=== PATIENT | male | born 1970 | race Caucasian/White ===

== ENCOUNTER 2016-03-09 14:01 | Emergency (ER) | payer OTHER ==
[~2016-03-09 14:01] MED LIST: /LAMO10TA PO; /QUET25TA OR; ACCU1TAB PO; AMAN10CA PO; ATEN25TA PO; BENZ5TA PO; CELE20TA PO; COGENTIN PO; COLA100C PO; CONGENTIN PO; DEBR6.5S4 AU; DESYREL PO; DOCQ100C PO; EPI PEN SQ; EXCETAB80 PO; FLOM5CAP PO; FLON0.05; FLON0.054; FLUO20CA9 PO; FLUTISP; IBUP600T26 PO; IBUP60TA PO; INDE1CAP5 PO; INDE80CA PO; INDERAL PO; LAC-12LO3 TOP; LAMI200T3 PO; LAMI25TA PO; LAMO10TA PO; LEVO100T4 PO; LEVO88TA3 PO; LITH150C OR; LITH300C PO; LITH300T PO; LITH45TASA PO; LITH600C OR; Lithium PO; MIRA3350 PO; NASONEX; NIZORAL TOP; OLYSIO PO; PERI0.126 MT; PROP1TAB29 PO; PROP40TA PO; PROS5TAB PO; RISP1TAB3 PO; RISP1TAB41 PO; ROBA500T PO; ROPI1TAB PO; SENO8.6T5 OR; SERO1TAB PO; SERO400T PO; SERO400T3 PO; SOVALDI PO; TETR25TA PO; TRAZ100T4 PO; TRAZ300T2 PO; TRAZO50TA PO; TRIL600T OR; TRIL600T PO; TYLE325T5 PO; ULTR50TA PO; VITA100037 PO; VITA10005 PO; VITA200038 PO; VITA20008 PO; inderal PO; pain medication PO
--- NOTE | 2016-03-09 15:45 | EDDOCDS ---
Physician Documentation [facility] Name: Tate Bajwa Age: 45 yrs Sex: Male : 1970 Arrival Date: 03/09/2016 Time: 14:01 Bed I7 Private MD: Drew Aguilera E. Disposition: 03/09/16 15:29 Discharged to Home/Self Care. Impression: Acute nasopharyngitis [common cold]. - Condition is Stable. - Discharge Instructions: Upper Respiratory Infection, Adult, Viral Infections, Cool Mist Vaporizers. - Medication Reconciliation, Local Pharmacy Hours form. - Follow up: Drew Aguilera; When: Call to arrange an appointment; Reason: Further diagnostic work-up, Recheck today's complaints, Continuance of care. - Problem is new. - Symptoms are unchanged. Historical: - Allergies: Haldol; Mellaril; Nuts; Prolixin; thorazine; - Home Meds: 1. amantadine HCl 100 mg Oral cap 1 cap every morning 2. Accupril 10 mg Oral tab 2 tabs at 2PM 3. propranolol 40 mg Oral tab 1 tab 3 times per day 4. tamsulosin 0.4 mg oral cp24 2 caps nightly 5. quetiapine 100 mg oral tab 1 tab nightly 6. Flonase Allergy Relief 50 mcg/actuation nasal spsn 1 spray every morning 7. tetrabenazine 25 mg oral tab 1 tab 2 times per day 8. trazodone 50 mg Oral tab 1 tab nightly 9. Prozac 20 mg Oral cap 1 cap every morning 10. amoxicillin 875 mg Oral tab 1 tab every 12 hours 11. levothyroxine 88 mcg Oral cap 1 cap every morning 12. Colace 100 mg oral cap 2 caps twice a day 13. Accupril 10 mg Oral tab 1 tab nightly 14. Vitamin D-3 with Aloe 120-1,000-10 mg-unit-mg oral tab 2000 unit every morning 15. Vitamin D Oral daily 16. lithium carbonate 600 mg Oral cap 1 cap nightly 17. Proscar 5 mg Oral tab 1 tab once daily 18. Lac-Hydrin 140g Topical twice a day 19. Debrox 6.5 % Otic drop 2 drop in each ear every other day - PMHx: "pig lung"; TBI; - PSHx: Unable to obtain; - Social history: Smoking status: Patient states was never smoker of tobacco. No barriers to communication noted. - Family history: Not pertinent. - : The pt / caregiver states he / she is not on anticoagulants. Home medication list is obtained from the facility MAY. - Exposure Risk Screening:: None identified. Vital Signs: 03/09 14:04 BP 127 / 91; Pulse 76; Resp 18 S; Temp 96.4(O); Pulse Ox 98% on R/A; Weight 105.23 kg / gr2 231.99 lbs (R); Height 5 ft. 8 in. (172.72 cm) (R); Pain 4/10; 15:37 BP 123 / 61; Pulse 87; Resp 18; Temp 100.3(TE); Pulse Ox 95% on R/A; Pain 9/10; rn1 14:04 Body Mass Index 35.28 (105.23 kg, 172.72 cm) gr2 Signatures: Jennie Bautista RN RN kr3 Javier Lott PA PA Ashley Nayak RN RN ttb MTDD
--- NOTE | 2016-03-09 15:45 | EDDOCDS ---
Nurse's Notes [facility] Name: Tate Bajwa Age: 45 yrs Sex: Male : 1970 Arrival Date: 03/09/2016 Time: 14:01 Bed I7 29 Private MD: Drew Aguilera E. Diagnosis: Acute nasopharyngitis [common cold] Presentation: 03/09 14:07 Presenting complaint: caregiver reports chest congestion, unsure of how long it has kr3 been going on. Was seen at [facility] 03/08/16 and started on Amoxicillin. No improvement today. Adult Sepsis Screening: The patient does not have new or worsening altered mentation. Patient's respiratory rate is less than 22. Systolic blood pressure is greater than 100. Patient has a qSOFA score of 0- Negative Sepsis Screen. Suicide/Homicide risk assessment- the patient denies having any suicidal and/or homicidal ideations and does not present with any other emotional, behavioral or mental health complaints. Status: Patient is not a technical services librarian or dependent. Transition of care: patient was not received from another setting of care. 14:07 Acuity: ROSA Level 4 kr3 14:07 Method Of Arrival: Walkin/Carried/Asstd kr3 Triage Assessment: 14:13 General: Appears in no apparent distress, comfortable, Behavior is cooperative. Pain: kr3 Location: throat Pain currently is 6 out of 10 on a pain scale. HIV screening NA for this visit Offered previously. Neurological: Reports dizziness. Respiratory: Respiratory effort is even, unlabored, Reports cough that is persistent. GI: Reports vomiting when coughs. Derm: Skin is normal. Historical: - Allergies: Haldol; Mellaril; Nuts; Prolixin; thorazine; - Home Meds: 1. amantadine HCl 100 mg Oral cap 1 cap every morning 2. Accupril 10 mg Oral tab 2 tabs at 2PM 3. propranolol 40 mg Oral tab 1 tab 3 times per day 4. tamsulosin 0.4 mg oral cp24 2 caps nightly 5. quetiapine 100 mg oral tab 1 tab nightly 6. Flonase Allergy Relief 50 mcg/actuation nasal spsn 1 spray every morning 7. tetrabenazine 25 mg oral tab 1 tab 2 times per day 8. trazodone 50 mg Oral tab 1 tab nightly 9. Prozac 20 mg Oral cap 1 cap every morning 10. amoxicillin 875 mg Oral tab 1 tab every 12 hours 11. levothyroxine 88 mcg Oral cap 1 cap every morning 12. Colace 100 mg oral cap 2 caps twice a day 13. Accupril 10 mg Oral tab 1 tab nightly 14. Vitamin D-3 with Aloe 120-1,000-10 mg-unit-mg oral tab 2000 unit every morning 15. Vitamin D Oral daily 16. lithium carbonate 600 mg Oral cap 1 cap nightly 17. Proscar 5 mg Oral tab 1 tab once daily 18. Lac-Hydrin 140g Topical twice a day 19. Debrox 6.5 % Otic drop 2 drop in each ear every other day - PMHx: "pig lung"; TBI; - PSHx: Unable to obtain; - Social history: Smoking status: Patient states was never smoker of tobacco. No barriers to communication noted. - Family history: Not pertinent. - : The pt / caregiver states he / she is not on anticoagulants. Home medication list is obtained from the facility MAR. - Exposure Risk Screening:: None identified. Screenin:41 Screening information is obtained from the patient. Fall risk: No risks identified. ttb Assistance ADL's: Requires assistance with meal preparation, this assistance is provided by bathing, assistance is provided by dressing, assistance is provided by toileting, assistance is provided by ambulation, assistance is provided by housework, assistance is provided by medication administration, assistance is provided by residence staff. Abuse/DV Screen: The patient / caregiver reports he/she is: not in a situation that causes fear, pain or injury. Nutritional screening: No deficits noted. Advance Directives: Currently, there is no health care proxy. home support is adequate. Assessment: 15:41 Adult Sepsis Screening: The patient does not have new or worsening altered mentation. ttb Patient's respiratory rate is less than 22. Systolic blood pressure is greater than 100. Patient has a qSOFA score of 0- Negative Sepsis Screen. General: Appears in no apparent distress, well nourished, well groomed, Behavior is appropriate for age, cooperative, pleasant. Pain: Denies pain. Neurological: Level of Consciousness is awake, alert. Cardiovascular: Chest pain is denied. Respiratory: No deficits noted. Airway is patent Respiratory effort is even, unlabored, Respiratory pattern is regular, symmetrical, Breath sounds are clear bilaterally. Denies cough, shortness of breath. GI: Bowel sounds present X 4 quads. Abd is soft. Derm: Skin is normal. Vital Signs: 14:04 BP 127 / 91; Pulse 76; Resp 18 S; Temp 96.4(O); Pulse Ox 98% on R/A; Weight 105.23 kg gr2 (R); Height 5 ft. 8 in. (172.72 cm) (R); Pain 4/10; 15:37 BP 123 / 61; Pulse 87; Resp 18; Temp 100.3(TE); Pulse Ox 95% on R/A; Pain 9/10; rn1 14:04 Body Mass Index 35.28 (105.23 kg, 172.72 cm) gr2 Vitals: 14:04 Log In Time: March 09, 2016 at 14:04. gr2 ED Course: 14:03 Patient visited by Yobany Dasilva. gr2 14:03 Patient moved to Waiting gr2 14:04 Drew Aguilera is Private Physician. gr2 14:06 Patient visited by Yobany Dasilva. gr2 14:06 Patient moved to Pre RCE gr2 14:08 Triage Initiated kr3 15:10 Javier Lott PA is PHCP. btw 15:10 Tammie Ann MD is Attending Physician. btw 15:10 Patient visited by Javier Lott PA. btw 15:10 Patient moved to I6 / 28 rs3 15:10 Patient moved to I7 / 29 rs3 15:29 Drew Aguilera is Referral Physician. btw 15:41 The patient / caregiver is instructed regarding the plan of care and ED course. ttb Accompanied by Caregiver, Patient has correct armband on for positive identification. Adult w/ patient. 15:41 No IV's were initiated during this patient's visit. No procedures done that require ttb assistance. Order Results: There are currently no results for this order. Outcome: 15:29 Discharge ordered by Provider. btw 15:41 Discharge Assessment: Patient awake, alert and oriented x 3. No cognitive and/or ttb functional deficits noted. Patient verbalized understanding of disposition instructions. Patient awake and alert. patient administered narcotics - no. The following High Risk Discharge criteria are identified: None. Discharged to home ambulatory, with caregiver. Condition: good Condition: stable Condition: improved. Discharge instructions given to customer experience consultant, Instructed on discharge instructions, follow up and referral plans. medication usage, Demonstrated understanding of instructions, medications, Pt was receptive of discharge instructions/ teaching. No special radiology studies were completed. Property :Personal belongings accompany Pt. 15:43 Patient left the ED. ttb Signatures: Jennie BautistaRN RN kr3 Mohini Smith RN RN rs3 Javier Lott PA PA btw Conner, Teresa, RN RN ttb Yobany Dasilva gr2 Dante Dove rn1 MTDD
--- NOTE | 2016-03-11 16:45 | EDDOCDS ---
Nurse's Notes [facility] Name: Tate Bajwa Age: 45 yrs Sex: Male : 1970 Arrival Date: 03/09/2016 Time: 14:01 Bed I7 29 Private MD: Drwe Aguilera E. Diagnosis: Acute nasopharyngitis [common cold] Presentation: 03/09 14:07 Presenting complaint: caregiver reports chest congestion, unsure of how long it has kr3 been going on. Was seen at [facility] 03/08/16 and started on Amoxicillin. No improvement today. Adult Sepsis Screening: The patient does not have new or worsening altered mentation. Patient's respiratory rate is less than 22. Systolic blood pressure is greater than 100. Patient has a qSOFA score of 0- Negative Sepsis Screen. Suicide/Homicide risk assessment- the patient denies having any suicidal and/or homicidal ideations and does not present with any other emotional, behavioral or mental health complaints. Status: Patient is not a funeral service apprentice or dependent. Transition of care: patient was not received from another setting of care. 14:07 Acuity: ROSA Level 4 kr3 14:07 Method Of Arrival: Walkin/Carried/Asstd kr3 Triage Assessment: 14:13 General: Appears in no apparent distress, comfortable, Behavior is cooperative. Pain: kr3 Location: throat Pain currently is 6 out of 10 on a pain scale. HIV screening NA for this visit Offered previously. Neurological: Reports dizziness. Respiratory: Respiratory effort is even, unlabored, Reports cough that is persistent. GI: Reports vomiting when coughs. Derm: Skin is normal. Historical: - Allergies: Haldol; Mellaril; Nuts; Prolixin; thorazine; - Home Meds: 1. amantadine HCl 100 mg Oral cap 1 cap every morning 2. Accupril 10 mg Oral tab 2 tabs at 2PM 3. propranolol 40 mg Oral tab 1 tab 3 times per day 4. tamsulosin 0.4 mg oral cp24 2 caps nightly 5. quetiapine 100 mg oral tab 1 tab nightly 6. Flonase Allergy Relief 50 mcg/actuation nasal spsn 1 spray every morning 7. tetrabenazine 25 mg oral tab 1 tab 2 times per day 8. trazodone 50 mg Oral tab 1 tab nightly 9. Prozac 20 mg Oral cap 1 cap every morning 10. amoxicillin 875 mg Oral tab 1 tab every 12 hours 11. levothyroxine 88 mcg Oral cap 1 cap every morning 12. Colace 100 mg oral cap 2 caps twice a day 13. Accupril 10 mg Oral tab 1 tab nightly 14. Vitamin D-3 with Aloe 120-1,000-10 mg-unit-mg oral tab 2000 unit every morning 15. Vitamin D Oral daily 16. lithium carbonate 600 mg Oral cap 1 cap nightly 17. Proscar 5 mg Oral tab 1 tab once daily 18. Lac-Hydrin 140g Topical twice a day 19. Debrox 6.5 % Otic drop 2 drop in each ear every other day - PMHx: "pig lung"; TBI; - PSHx: Unable to obtain; - Social history: Smoking status: Patient states was never smoker of tobacco. No barriers to communication noted. - Family history: Not pertinent. - : The pt / caregiver states he / she is not on anticoagulants. Home medication list is obtained from the facility MAR. - Exposure Risk Screening:: None identified. Screenin:41 Screening information is obtained from the patient. Fall risk: No risks identified. ttb Assistance ADL's: Requires assistance with meal preparation, this assistance is provided by bathing, assistance is provided by dressing, assistance is provided by toileting, assistance is provided by ambulation, assistance is provided by housework, assistance is provided by medication administration, assistance is provided by residence staff. Abuse/DV Screen: The patient / caregiver reports he/she is: not in a situation that causes fear, pain or injury. Nutritional screening: No deficits noted. Advance Directives: Currently, there is no health care proxy. home support is adequate. Assessment: 15:41 Adult Sepsis Screening: The patient does not have new or worsening altered mentation. ttb Patient's respiratory rate is less than 22. Systolic blood pressure is greater than 100. Patient has a qSOFA score of 0- Negative Sepsis Screen. General: Appears in no apparent distress, well nourished, well groomed, Behavior is appropriate for age, cooperative, pleasant. Pain: Denies pain. Neurological: Level of Consciousness is awake, alert. Cardiovascular: Chest pain is denied. Respiratory: No deficits noted. Airway is patent Respiratory effort is even, unlabored, Respiratory pattern is regular, symmetrical, Breath sounds are clear bilaterally. Denies cough, shortness of breath. GI: Bowel sounds present X 4 quads. Abd is soft. Derm: Skin is normal. Vital Signs: 14:04 BP 127 / 91; Pulse 76; Resp 18 S; Temp 96.4(O); Pulse Ox 98% on R/A; Weight 105.23 kg gr2 (R); Height 5 ft. 8 in. (172.72 cm) (R); Pain 4/10; 15:37 BP 123 / 61; Pulse 87; Resp 18; Temp 100.3(TE); Pulse Ox 95% on R/A; Pain 9/10; rn1 14:04 Body Mass Index 35.28 (105.23 kg, 172.72 cm) gr2 Vitals: 14:04 Log In Time: March 09, 2016 at 14:04. gr2 ED Course: 14:03 Patient visited by Yobany Dasilva. gr2 14:03 Patient moved to Waiting gr2 14:04 Drew Aguilera is Private Physician. gr2 14:06 Patient visited by Yobany Dasilva. gr2 14:06 Patient moved to Pre RCE gr2 14:08 Triage Initiated kr3 15:10 Javier Lott PA is PHCP. btw 15:10 Tammie Ann MD is Attending Physician. btw 15:10 Patient visited by Javier Lott PA. btw 15:10 Patient moved to I6 / 28 rs3 15:10 Patient moved to I7 / 29 rs3 15:29 Drew Aguilera is Referral Physician. btw 15:41 The patient / caregiver is instructed regarding the plan of care and ED course. ttb Accompanied by Caregiver, Patient has correct armband on for positive identification. Adult w/ patient. 15:41 No IV's were initiated during this patient's visit. No procedures done that require ttb assistance. 16:08 [facility] [place] was scanned into [employer] and attached to record. jp5 03/10 06:51 T-Sheet-- Draft Copy was scanned into [employer] and attached to record. gb Order Results: There are currently no results for this order. Outcome: 03/09 15:29 Discharge ordered by Provider. btw 15:41 Discharge Assessment: Patient awake, alert and oriented x 3. No cognitive and/or ttb functional deficits noted. Patient verbalized understanding of disposition instructions. Patient awake and alert. patient administered narcotics - no. The following High Risk Discharge criteria are identified: None. Discharged to home ambulatory, with caregiver. Condition: good Condition: stable Condition: improved. Discharge instructions given to dining room cashier, Instructed on discharge instructions, follow up and referral plans. medication usage, Demonstrated understanding of instructions, medications, Pt was receptive of discharge instructions/ teaching. No special radiology studies were completed. Property :Personal belongings accompany Pt. 15:43 Patient left the ED. ttb Signatures: Ladi Brower, Reg Reg gb Jennie Bautista,RN RN kr3 Mohini SmithRN RN rs3 Javier Lott PA PA btw Conner, Teresa, RN RN ttb Yobany Dasilva Robert rn1 David Aguilar jp5 Chart Complete MTDMariann
--- NOTE | 2016-03-11 16:45 | EDDOCDS ---
Physician Documentation [facility] Name: Tate Bajwa Age: 45 yrs Sex: Male : 1970 Arrival Date: 03/09/2016 Time: 14:01 Bed I7 Private MD: Drew Aguilera E. Disposition: 03/09/16 15:29 Discharged to Home/Self Care. Impression: Acute nasopharyngitis [common cold]. - Condition is Stable. - Discharge Instructions: Upper Respiratory Infection, Adult, Viral Infections, Cool Mist Vaporizers. - Medication Reconciliation, Local Pharmacy Hours form. - Follow up: Drew Aguilera; When: Call to arrange an appointment; Reason: Further diagnostic work-up, Recheck today's complaints, Continuance of care. - Problem is new. - Symptoms are unchanged. Historical: - Allergies: Haldol; Mellaril; Nuts; Prolixin; thorazine; - Home Meds: 1. amantadine HCl 100 mg Oral cap 1 cap every morning 2. Accupril 10 mg Oral tab 2 tabs at 2PM 3. propranolol 40 mg Oral tab 1 tab 3 times per day 4. tamsulosin 0.4 mg oral cp24 2 caps nightly 5. quetiapine 100 mg oral tab 1 tab nightly 6. Flonase Allergy Relief 50 mcg/actuation nasal spsn 1 spray every morning 7. tetrabenazine 25 mg oral tab 1 tab 2 times per day 8. trazodone 50 mg Oral tab 1 tab nightly 9. Prozac 20 mg Oral cap 1 cap every morning 10. amoxicillin 875 mg Oral tab 1 tab every 12 hours 11. levothyroxine 88 mcg Oral cap 1 cap every morning 12. Colace 100 mg oral cap 2 caps twice a day 13. Accupril 10 mg Oral tab 1 tab nightly 14. Vitamin D-3 with Aloe 120-1,000-10 mg-unit-mg oral tab 2000 unit every morning 15. Vitamin D Oral daily 16. lithium carbonate 600 mg Oral cap 1 cap nightly 17. Proscar 5 mg Oral tab 1 tab once daily 18. Lac-Hydrin 140g Topical twice a day 19. Debrox 6.5 % Otic drop 2 drop in each ear every other day - PMHx: "pig lung"; TBI; - PSHx: Unable to obtain; - Social history: Smoking status: Patient states was never smoker of tobacco. No barriers to communication noted. - Family history: Not pertinent. - : The pt / caregiver states he / she is not on anticoagulants. Home medication list is obtained from the facility MAR. - Exposure Risk Screening:: None identified. Vital Signs: 03/09 14:04 BP 127 / 91; Pulse 76; Resp 18 S; Temp 96.4(O); Pulse Ox 98% on R/A; Weight 105.23 kg / gr2 231.99 lbs (R); Height 5 ft. 8 in. (172.72 cm) (R); Pain 4/10; 15:37 BP 123 / 61; Pulse 87; Resp 18; Temp 100.3(TE); Pulse Ox 95% on R/A; Pain 9/10; rn1 14:04 Body Mass Index 35.28 (105.23 kg, 172.72 cm) gr2 MDM: 16:08 [facility] [place] Agreement was scanned into [employer] and attached to record. jp5 :08 Financial registration complete. jp5 03/10 06:51 T-Sheet-- Draft Copy was scanned into [employer] and attached to record. gb Signatures: Ladi Brower, To Reg gb Jennie Bautista,RN RN kr3 Javier Lott PA PA btw Conner, Teresa, RN RN ttb David Aguilar jp5 The chart was reviewed and I authenticate all verbal orders and agree with the evaluation and treatment provided.Attachments: 03/09 16:08 [facility] [place] Payment Agreement jp5 03/10 06:51 T-Sheet-- Draft Copy gb Chart Complete MTDD
--- NOTE | 2016-03-11 16:45 | EDDOCDS ---
Physician Documentation [facility] Name: Tate Bajwa Age: 45 yrs Sex: Male : 1970 Arrival Date: 03/09/2016 Time: 14:01 Bed I7 Private MD: Drew Aguilera E. Disposition: 03/09/16 15:29 Discharged to Home/Self Care. Impression: Acute nasopharyngitis [common cold]. - Condition is Stable. - Discharge Instructions: Upper Respiratory Infection, Adult, Viral Infections, Cool Mist Vaporizers. - Medication Reconciliation, Local Pharmacy Hours form. - Follow up: Drew Aguilera; When: Call to arrange an appointment; Reason: Further diagnostic work-up, Recheck today's complaints, Continuance of care. - Problem is new. - Symptoms are unchanged. Historical: - Allergies: Haldol; Mellaril; Nuts; Prolixin; thorazine; - Home Meds: 1. amantadine HCl 100 mg Oral cap 1 cap every morning 2. Accupril 10 mg Oral tab 2 tabs at 2PM 3. propranolol 40 mg Oral tab 1 tab 3 times per day 4. tamsulosin 0.4 mg oral cp24 2 caps nightly 5. quetiapine 100 mg oral tab 1 tab nightly 6. Flonase Allergy Relief 50 mcg/actuation nasal spsn 1 spray every morning 7. tetrabenazine 25 mg oral tab 1 tab 2 times per day 8. trazodone 50 mg Oral tab 1 tab nightly 9. Prozac 20 mg Oral cap 1 cap every morning 10. amoxicillin 875 mg Oral tab 1 tab every 12 hours 11. levothyroxine 88 mcg Oral cap 1 cap every morning 12. Colace 100 mg oral cap 2 caps twice a day 13. Accupril 10 mg Oral tab 1 tab nightly 14. Vitamin D-3 with Aloe 120-1,000-10 mg-unit-mg oral tab 2000 unit every morning 15. Vitamin D Oral daily 16. lithium carbonate 600 mg Oral cap 1 cap nightly 17. Proscar 5 mg Oral tab 1 tab once daily 18. Lac-Hydrin 140g Topical twice a day 19. Debrox 6.5 % Otic drop 2 drop in each ear every other day - PMHx: "pig lung"; TBI; - PSHx: Unable to obtain; - Social history: Smoking status: Patient states was never smoker of tobacco. No barriers to communication noted. - Family history: Not pertinent. - : The pt / caregiver states he / she is not on anticoagulants. Home medication list is obtained from the facility MAR. - Exposure Risk Screening:: None identified. Vital Signs: 03/09 14:04 BP 127 / 91; Pulse 76; Resp 18 S; Temp 96.4(O); Pulse Ox 98% on R/A; Weight 105.23 kg / gr2 231.99 lbs (R); Height 5 ft. 8 in. (172.72 cm) (R); Pain 4/10; 15:37 BP 123 / 61; Pulse 87; Resp 18; Temp 100.3(TE); Pulse Ox 95% on R/A; Pain 9/10; rn1 14:04 Body Mass Index 35.28 (105.23 kg, 172.72 cm) gr2 MDM: 16:08 [facility] [place] Agreement was scanned into [employer] and attached to record. jp5 :08 Financial registration complete. jp5 03/10 06:51 T-Sheet-- Draft Copy was scanned into [employer] and attached to record. gb Signatures: Ladi Brower, To Reg gb Jennie Bautista,RN RN kr3 Javier Lott PA PA btw Conner, Teresa, RN RN ttb David Aguilar jp5 The chart was reviewed and I authenticate all verbal orders and agree with the evaluation and treatment provided.Attachments: 03/09 16:08 [facility] [place] Agreement jp5 03/10 06:51 T-Sheet-- Draft Copy gb Chart Complete MTDD
== END 2016-03-09 15:43 | disposition home or self-care (01) ==
LOC: M ED 14:01
DX: J06.9 Acute upper respiratory infection, unspecified (principal); B34.9 Viral infection, unspecified; J98.4 Other disorders of lung; Z87.820 Personal history of traumatic brain injury; Z79.899 Other long term (current) drug therapy; Z88.5 Allergy status to narcotic agent; Z88.8 Allergy status to other drugs, medicaments and biological substances; Z91.010 Allergy to peanuts

== ENCOUNTER 2016-04-04 13:44 | Emergency (ER) | payer OTHER ==
[2016-04-04 15:36] LABS: AMPHETAMINES LEVEL URINE NEGATIVE (NEGATIVE); BENZODIAZEPINES URINE NEGATIVE (NEGATIVE); COCAINE METABOLITE URINE NEGATIVE (NEGATIVE); CONTROL LINE INT CTR LINE PRESENT; METHADONE URINE NEGATIVE (NEGATIVE); OPIATES URINE NEGATIVE (NEGATIVE); TRICYCLIC ANTIDEPRESS URINE NEGATIVE (NEGATIVE)
[2016-04-04 15:40] LABS: MEAN CORPUSCULAR HEMOGLOBIN 31.3 pg (27.0-33.0); MEAN CORPUSCULAR HGB CONC 34.7 g/dl (32.0-36.5); RED CELL DISTRIBUTION WIDTH 12.8 % (11.5-14.5); WHITE BLOOD COUNT 7.8 K/mm3 (4.0-10.0)
[2016-04-04 15:50] LABS: ALBUMIN 3.9 GM/DL (3.2-5.2); ALBUMIN/GLOBULIN RATIO 1.18 (1.00-1.93); ALKALINE PHOSPHATASE 99 U/L (45-117); ALT/SGPT 46 U/L (12-78); ANION GAP 9 MEQ/L (8-16); AST/SGOT 23 U/L (15-37); BILIRUBIN,DIRECT < 0.1 MG/DL (0.0-0.2); BILIRUBIN,TOTAL 0.4 MG/DL (0.2-1.0); BLOOD UREA NITROGEN 14 MG/DL (7-18); CALCIUM LEVEL 9.3 MG/DL (8.5-10.1); CARBON DIOXIDE LEVEL 26 MEQ/L (21-32); CHLORIDE LEVEL 106 MEQ/L (98-107); CREATININE FOR GFR 1.16 MG/DL (0.70-1.30); GLOMERULAR FILTRATION RATE > 60.0 (>60); GLUCOSE, FASTING 98 MG/DL (70-105); POTASSIUM SERUM 4.2 MEQ/L (3.5-5.1); SODIUM LEVEL 141 MEQ/L (136-145); TOTAL PROTEIN 7.2 GM/DL (6.4-8.2)
[2016-04-04] MEDS ORDERED: TAMSULOSIN 0.4 MG CAP As Ordered ONE (21:55)
[2016-04-04] MEDS ORDERED: LITHIUM CARBONATE 300 MG CAP As Ordered ONE (21:55)
[2016-04-04] MEDS ORDERED: QUEtiapine FUMARATE 100 MG TAB As Ordered ONE (21:55)
[2016-04-04] MEDS ORDERED: DOCUSATE SODIUM 100 MG CAP As Ordered ONE (21:55)
[2016-04-04] MEDS ORDERED: PROPRANOLOL 10 MG TAB As Ordered ONE (21:56)
[2016-04-04] MEDS ORDERED: traZODone 50 MG TAB As Ordered ONE (21:56)
[2016-04-04] MEDS ORDERED: QUINAPRIL 10 MG PO ONE (22:15)
[2016-04-05] MEDS ORDERED: LEVOTHYROXINE 0.088 MG TAB (88 MCG) PO ONE (04:45)
[2016-04-05 08:39] LABS: LITHIUM LEVEL 0.47 MEQ/L (0.60-1.20)
--- NOTE | 2016-04-05 09:33 | EDDOCDS ---
Nurse's Notes [facility] Name: Tate Bajwa Age: 45 yrs Sex: Male : 1970 Arrival Date: 04/04/2016 Time: 13:44 Bed OBSERVATION Private MD: Drew Aguilera E. Diagnosis: Bipolar disorder, current episode depressed, mild or moderate severity, unspecified Presentation: 04/04 14:45 Presenting complaint: Patient states: MHE, increase in depression today, only reason dwg given is upcoming Valentines Day, calm and cooperative. Staff member from [facility] here with patient. Mental Health Triage Level: Level 2: The patient displays active suicidal ideations. Adult Sepsis Screening: The patient does not have new or worsening altered mentation. Patient's respiratory rate is less than 22. Systolic blood pressure is greater than 100. Patient has a qSOFA score of 0- Negative Sepsis Screen. Suicide/Homicide risk assessment- The patient admits to and/or has been reported to be having suicidal ideations. Status: Patient is not a equipment services associate or dependent. Transition of care: patient was received from [facility]. 14:45 Acuity: ROSA Level 3 dwg 14:45 Method Of Arrival: Walkin/Carried/Asstd dw Triage Assessment: 14:49 General: Appears in no apparent distress, Behavior is cooperative. Pain: Denies pain. [facility] HIV screening NA for this visit Offered previously. Historical: - Allergies: Haldol; Mellaril; Nuts; Prolixin; thorazine; - Home Meds: 1. amantadine HCl 100 mg Oral cap 1 cap every morning (Last dose: 04/04/2016) 2. Accupril 10 mg Oral tab 1 tab nightly (Last dose: 04/03/2016) 3. Accupril 10 mg Oral tab 1 tab hs 4. amoxicillin 875 mg Oral tab 1 tab every 12 hours (Last dose: 04/04/2016) 5. Colace 100 mg oral cap 2 caps twice a day (Last dose: 04/04/2016) 6. Debrox 6.5 % Otic drop 2 drop in each ear every other day 7. Flonase Allergy Relief 50 mcg/actuation nasal spsn 1 spray every morning (Last dose: 04/04/2016) 8. Lac-Hydrin 140g Topical twice a day 9. levothyroxine 88 mcg Oral cap 1 cap every morning (Last dose: 04/04/2016) 10. lithium carbonate 600 mg Oral cap 1 cap nightly (Last dose: 04/03/2016) 11. Proscar 5 mg Oral tab 1 tab once daily (Last dose: 04/04/2016) 12. propranolol 40 mg Oral tab 1 tab 3 times per day (Last dose: 04/04/2016 08:00) 13. Prozac 20 mg Oral cap 1 cap every morning (Last dose: 04/04/2016 08:00) 14. quetiapine 100 mg oral tab 1 tab nightly (Last dose: 04/03/2016) 15. tamsulosin 0.4 mg oral cp24 2 caps nightly (Last dose: 04/03/2016) 16. tetrabenazine 25 mg oral tab 1 tab 2 times per day (Last dose: 04/04/2016) 17. trazodone 50 mg Oral tab 1 tab nightly (Last dose: 04/03/2016) 18. Vitamin D-3 with Aloe 120-1,000-10 mg-unit-mg oral tab 2000 unit every morning - PMHx: TBI; Hepatitis C; - PSHx: Pacedmaker insertion; - Social history: Smoking status: Patient states was never smoker of tobacco. No barriers to communication noted, The patient speaks fluent Yakut. - Family history: Not pertinent. - : The pt / caregiver states he / she is not on anticoagulants. Home medication list is obtained from the facility MAR. - Exposure Risk Screening:: None identified. Screenin/01 08:22 Screening information is obtained from the patient. Fall risk: No risks identified. mlb1 Assistance ADL's: requires no assistance with activities of daily living. Abuse/DV Screen: The patient / caregiver reports he/she is: not in a situation that causes fear, pain or injury. Nutritional screening: No deficits noted. Advance Directives: Currently, there is no health care proxy. home support is adequate. Assessment: 04/04 15:57 General: Appears in no apparent distress, comfortable, Behavior is cooperative. Pain: dwg Denies pain. Neurological: Level of Consciousness is awake, alert, Oriented to person, place, time. Respiratory: Airway is patent Respiratory effort is even, unlabored, Respiratory pattern is regular, symmetrical. 17:54 General: Appears in no apparent distress, comfortable, Behavior is cooperative, Eating dwg dinner tray, calm and cooperative, offers no complaints.. 19:00 General: Appears in no apparent distress, comfortable, Behavior is cooperative, rw1 restless. Pain: Denies pain. Neurological: Level of Consciousness is awake, alert, obeys commands, Oriented to person, place, time. Respiratory: Airway is patent Respiratory effort is even, unlabored. Derm: Skin is pink, warm & dry. normal. 20:00 Reassessment: Patient appears in no apparent distress at this time. awake resting on rw1 stretcher, safety maintained will monitor.. 21:14 Reassessment: Patient appears in no apparent distress at this time. Patient denies pain rw1 at this time. awake resting on stretcher, safety maintained will monitor.. 22:00 General: Appears in no apparent distress, comfortable, Behavior is quiet, resting on rw1 stretcher with eyes closed, safety maintained. Respiratory: Airway is patent Respiratory effort is even, unlabored. Derm: Skin is pink, warm & dry. normal. 22:29 General: Appears in no apparent distress, Behavior is cooperative. Pain: Denies pain. mgs Neurological: Level of Consciousness is awake, alert, Oriented to person, place, time. Cardiovascular: Capillary refill < 3 seconds Heart tones S1 S2 present. Respiratory: Airway is patent Respiratory effort is even, unlabored, Respiratory pattern is regular, symmetrical. Derm: Skin is pink, warm & dry. 23:02 Reassessment: Patient appears in no apparent distress at this time. resting on rw1 stretcher with eyes closed, safety maintained will monitor.. 04/05 00:05 Reassessment: Patient appears in no apparent distress at this time. resting quietly on rw1 stretcher, safety maintained will monitor.. 01:20 General: Appears in no apparent distress, comfortable, Behavior is quiet, resting on rw1 stretcher with eyes closed, safety maintained. Respiratory: Airway is patent Respiratory effort is even, unlabored. Derm: Skin is pink, warm & dry. normal. 02:15 Reassessment: Patient appears in no apparent distress at this time. resting quietly on rw1 stretcher, safety maintained will monitor.. 03:11 Reassessment: Patient appears in no apparent distress at this time. resting quietly on rw1 stretcher, safety maintained will monitor.. 04:11 General: Appears in no apparent distress, comfortable, Behavior is quiet, resting on rw1 stretcher with eyes closed, safety maintained will monitor.. 05:12 Reassessment: Patient appears in no apparent distress at this time. Patient denies pain rw1 at this time. resting quietly on stretcher, safety maintained will monitor.. 06:04 Reassessment: Patient appears in no apparent distress at this time. Patient denies pain rw1 at this time. resting quietly on stretcher, safety maintained will monitor.. 07:05 General: Appears in no apparent distress, comfortable, Behavior is cooperative, quiet. mlb1 Pain: Denies pain. Neurological: No deficits noted. 07:51 General: Appears in no apparent distress, comfortable, Behavior is cooperative, quiet. mlb1 Pain: Denies pain. 09:05 General: Appears in no apparent distress, comfortable, Behavior is appropriate for age, mlb1 cooperative. Pain: Denies pain. Neurological: No deficits noted. 09:28 General: Appears in no apparent distress, comfortable, Behavior is appropriate for age, mlb1 cooperative. Pain: Denies pain. Neurological: No deficits noted. Mental Health Eval: 04/04 17:21 Mental health consult is initiated at 17:00. Status: The patient is not a equipment services associate or dependent. [facility] Behavioral Health: The patient is not an established patient of [facility] Behavioral Health. Referral Information: Evaluation referral is generated by the patient himself / herself. The patient was referred for evaluation because Pt states he is depressed, having intermittent suicidal thoughts. Subjective: The patients chief complaint is I'm really depressed because I can't work. I've been having suicidal thoughts off and on and I don't feel safe going home.. Delusions are denied. Patient's mood is depressed, Hallucinations are denied. Mental Health history: depression. 17:36 Mental Health history: schizophrenia, Mental Health Admissions: [facility], [place] multiple admits Current Outpatient Mental Health Services: Psychiatrist / Agency: Dr Shin at [facility]. Pt lives at [facility] residence. Current living environment is The patient currently lives in a [facility] residence. Patient presents to Emergency Department with the following symptoms within the past 2 weeks: anxiety, depressed mood, feelings of helplessness/hopelessness, poor concentration, sleep disturbance - excessive sleeping, suicidal ideation with no plan. Substance abuse: Pt denies. Mental status exam: Patients appearance is appropriate, Patient's behavior is cooperative, Speech is normal. Affect is blunted Mood is depressed. Hallucinations are denied. Appetite is erratic Memory is good. Energy level is normal. Content of thought is normal. Thought process is intact. Cognitive level is oriented to person, place, time and situation Patient's insight is poor. Judgement is poor. Rapport with interviewer is good. Suicidal Ideation is present with no specific plan. Homicidal ideation is not present. Disposition: Medically cleared for disposition by Brien Blake MD Psychiatric Consult is performed by phone with Dr Jhonatan Mims. [facility] Admission Criteria: The patient is experiencing suicidal ideation. The patient requires continuous observation and/or control to protect self, others or property. The patient's care requires a multi-modal treatment plan under close supervision and coordination due to the complexity and severity of the patient's symptoms. The patient requires administration and monitoring of psychoactive medications by skilled medical providers due to the side effects of the psychoactive medications or significant dosage adjustments. Legal Status: Patient's legal status will be. DSM-V Differential Diagnosis: Schizoaffective Disorder (F25.0) bipolar type (F25.0). Narrative: Pt presents with [facility] staff reporting that he is depressed, having suicidal thoughts without any specific plan. Pt states he gets depressed thinking about Valentines coming up the fact that he doesn't have a date and also that he is unable to work. Pt states he has been sleeping a lot, appetite has been poor, concentration is poor. Pt denies HI, no AH/VH. Pt is not able to CFS at this time. 04/05 05:55 Narrative: [facility] does not have an available bed. Per transfer center [facility] has an available bed and they are requesting a doc to doc to discuss acceptance. Dr. Ann has been provided contact information. Vital Signs: 04/04 13:46 BP 112 / 86; Pulse 119; Resp 20; Temp 97.0; Pulse Ox 97% ; Height 5 ft. 8 in. (172.72 elp cm) (R); 16:24 BP 134 / 94; Pulse 65; Resp 20; Temp 97.5(O); Pulse Ox 96% on R/A; Weight 105 kg (R); dpm 20:46 BP 144 / 90; Pulse 55; Resp 20; Temp 97.1(O); Pulse Ox 95% on R/A; Pain 0/10; rw1 02 05:13 BP 105 / 65; Pulse 70; Resp 20; Temp 96.9(O); Pulse Ox 94% on R/A; Pain 0/10; rw1 09:28 BP 129 / 81; Pulse 62; Resp 16; Temp 96.5(O); Pulse Ox 95% on R/A; Pain 0/10; mlb1 04/04 16:24 Body Mass Index 35.20 (105.00 kg, 172.72 cm) dpm Vitals: 04/04 13:46 Log In Time: April 04, 2016 at 13:44. RN notified that patient meets Red Flag elp criteria. ED Course: 13:45 Patient visited by Janet Grove PCA. elp 13:45 Patient moved to Waiting elp 13:46 Drew Aguilera is Private Physician. elp 13:46 Patient visited by Janet Grove PCA. elp 13:50 Patient moved to RUST hs 14:17 Patient visited by Keren Ellsworth PCA. ar3 14:17 Assisted to bathroom. Psych Safety Check: Location: Psych Room. Visual Assessment: ar3 Cooperative. 14:35 Patient visited by Frank Agustin. dpm 14:38 Pt greeted and oriented to ED. Patient advised of names of staff involved in care, dpm location of call [place], wait times and NPO status. Patient has correct armband on for positive identification. Placed in gown. Placed in psych safe attire. Bed in low position. Security observing. Property removed, inventory done, secured in belongings bag- placed in locked locker. Placed in locker 5. Psych Safety Check: Location: Psych Room. Visual Assessment: Cooperative. 14:41 Brien Blake MD is Attending Physician. br1 14:48 Triage Initiated dwg 14:50 Patient visited by Keren Ellsworth PCA. ar3 14:50 Patient visited by Keren Ellsworth PCA. ar3 14:50 Assisted to bathroom. ar3 14:59 Patient visited by Brien Blake MD. br1 15:12 Acetaminophen Level Sent. dwg 15:12 Basic Metabolic Profile Sent. dwg 15:12 Complete Blood Count Sent. dwg 15:12 Drug Eval Toxicology ED Only Sent. dwg 15:12 Ethyl Alcohol (ethanol) Sent. dwg 15:12 Liver Profile Sent. dwg 15:12 Salicylate Level Sent. dwg 15:12 Thyroid Stimulating Hormone Sent. dwg 15:24 Patient visited by Frank Agustin. dpm 15:39 Patient visited by rFank Agustin. dpm 15:49 Patient visited by Keren Ellsworth PCA. ar3 16:01 Patient visited by Frank Agustin. dpm 16:17 Patient visited by Frank Agustin. dpm 16:30 Patient visited by Frank Agustin. dpm 16:37 Patient visited by Frank Agustin. dpm 17:02 Patient visited by Frank Agustin. dpm 17:02 role handed off by Mariama Doss RN jc4 17:20 Patient visited by Frank Agustin. dpm 17:37 Patient visited by Frank Agustin. dpm 17:56 Patient visited by George Lugo RN. dwg 18:08 Patient visited by Frank Agustin. dpm 18:22 Patient moved to OBSERVATION br1 18:30 Patient visited by Frank Agustin. dpm 19:03 Patient visited by Frank Agustin. dpm 19:17 Patient visited by Dante Dove. rn1 19:42 Patient visited by Dante Dove. rn1 19:47 Patient visited by Dante Dove. rn1 20:00 Patient visited by Dante Dove. rn1 20:04 Dante Massey LPN is Primary Nurse. rw1 20:17 Patient visited by Dante Dove. rn1 20:32 Patient visited by Dante Dove. rn1 20:44 Patient visited by Dante Dove. rn1 20:47 role handed off by Pablito Alonzo PSA dre 20:59 Patient visited by Dante Dove. rn1 21:18 Patient visited by Dante Massey LPN. rw1 21:29 Patient visited by Dante Dove. rn1 21:49 Patient visited by Dante Dove. rn1 21:57 Patient visited by Dante Dove. rn1 22:08 Patient visited by Dante Dove. rn1 22:15 Patient visited by Dante Dove. rn1 22:15 [facility] Payment Agreement was scanned into [employer] and attached to record. gjb 22:30 Patient visited by James Allen RN. mgs 22:30 Patient visited by Dante Dove. rn1 23:14 Patient visited by HillJason. tr 23:59 [facility]:19 [facility] 00:29 Patient visited by [facility] Jason. tr 00:45 Patient visited by [facility] Jason. tr 01:13 Patient visited by [facility] Jason. tr 01:42 Patient visited by [facility] Jason. tr 02:03 Patient visited by [facility] Jason. tr 02:34 Patient visited by [facility] Jason. tr 02:47 Patient visited by [facility] Jason. tr 03:00 Patient visited by [facility] Jason. tr 03:17 Patient visited by [facility] Jason. tr 03:28 Patient visited by [facility] Jason. tr 04:20 Patient visited by [facility] Jason. tr 04:35 Patient visited by [facility]. tr 05:05 Patient visited by [facility] Jason. tr 05:14 Patient visited by [facility] Jason. tr 05:33 Patient visited by [facility] Jason. tr 05:59 Patient visited by [facility] Jason. tr 06:14 Patient visited by [facility] Jason. tr 06:30 Patient visited by [facility] Jason. tr 06:43 Primary Nurse role handed off by Dante Massey LPN rwLobo 06:49 Patient visited by [facility] Jason. tr 06:51 Attending Physician role handed off by Brien Blake MD fg 06:51 Tammie Ann MD is Attending Physician. fg 07:02 [facility] tr 07:15 Psych Safety Check: Location: Psych Room. Visual Assessment: Cooperative. pjf 07:30 Psych Safety Check: Location: Psych Room. Visual Assessment: Cooperative. pjf 07:45 Psych Safety Check: Location: Psych Room. Visual Assessment: Cooperative. pjf 07:52 Patient visited by Andrei Love RN. mlb1 08:06 Patient visited by Darrius Yee Security Aide. pjf 08:20 Patient visited by Darrius Yee Security Aide. pjf 08:34 Patient visited by Darrius Yee Security Aide. pjf 08:53 Patient visited by Darrius Yee Security Aide. pjf 09:06 Patient visited by Andrei Love RN. mlb1 09:06 The patient / caregiver is instructed regarding the plan of care and ED course. mlb1 09:06 No IV's were initiated during this patient's visit. No procedures done that require mlb1 assistance. 09:07 Patient visited by Darrius Yee Security Aide. pjf 09:17 Patient visited by Darrius Yee Security Aide. pjf Administered Medications: 04/04 22:13 Not Given (MED UNAVAILABLE): Tetrabenazine 50 mg PO once rw 22:50 Drug: [place] 600 mg [lithium carbonate 300 mg capsule (2 caps)] Route: PO; 04/05 04:27 Follow up: Response: No Adverse Reaction 04/04 22:50 Drug: Propranolol 40 mg [propranolol 10 mg tablet (4 tabs)] Route: PO; 04/05 04:27 Follow up: Response: No Adverse Reaction 04/04 22:50 Drug: QUEtiapine 100 mg Route: PO; 04/05 04:27 Follow up: Response: No Adverse Reaction 04/04 22:50 Drug: Tamsulosin 0.8 mg [tamsulosin 0.4 mg capsule (2 caps)] Route: PO; 04/05 04:26 Follow up: Response: No Adverse Reaction 04/04 22:50 Drug: traZODone 50 mg [trazodone 50 mg tablet (1 tabs)] Route: PO; 04/05 04:26 Follow up: Response: No Adverse Reaction 04/04 22:51 Drug: Accupril 10 mg Route: PO; 04/05 04:28 Follow up: Response: No Adverse Reaction 04/04 22:51 Drug: Docusate 100 mg [docusate sodium 100 mg capsule (1 caps)] Route: PO; 04/05 04:27 Follow up: Response: No Adverse Reaction [facility] 05:12 Drug: levothyroxine 88 mcg Route: PO; rw1 Order Results: Lab Order: Acetaminophen Level; SPEC'M 04/04/16 15:09 Test: ACETAMINOPHEN LEVEL; Value: < 2.0; Range: 10.0-30.0; Abnormal: Below low normal; Units: UG/ML; Status: F Lab Order: Basic Metabolic Profile; SPEC'M 04/04/16 15:09 Test: GLUCOSE, FASTING; Value: 98; Range: 70-105; Units: MG/DL; Status: F Test: BLOOD UREA NITROGEN; Value: 14; Range: 7-18; Units: MG/DL; Status: F Test: CREATININE FOR GFR; Value: 1.16; Range: 0.70-1.30; Units: MG/DL; Status: F Test: GLOMERULAR FILTRATION RATE; Value: > 60.0; Range: >60; Status: F Test: SODIUM LEVEL; Value: 141; Range: 136-145; Units: MEQ/L; Status: F Test: POTASSIUM SERUM; Value: 4.2; Range: 3.5-5.1; Units: MEQ/L; Status: F Test: CHLORIDE LEVEL; Value: 106; Range: 98-107; Units: MEQ/L; Status: F Test: CARBON DIOXIDE LEVEL; Value: 26; Range: 21-32; Units: MEQ/L; Status: F Test: ANION GAP; Value: 9; Range: 8-16; Units: MEQ/L; Status: F Test: CALCIUM LEVEL; Value: 9.3; Range: 8.5-10.1; Units: MG/DL; Status: F Test Note: ; Units are mL/min/1.73 m2 Chronic Kidney Disease Staging per NKF: Stage I & II GFR >=60 Normal to Mildly Decreased Stage III GFR 30-59 Moderately Decreased Stage IV GFR 15-29 Severely Decreased Stage V GFR <15 Very Little GFR Left ESRD GFR <15 on PATROL INSPECTOR Lab Order: Complete Blood Count; SPEC'M 04/04/16 15:09 Test: WHITE BLOOD COUNT; Value: 7.8; Range: 4.0-10.0; Units: K/mm3; Status: F Test: RED BLOOD COUNT; Value: 4.93; Range: 4.30-6.10; Units: M/mm3; Status: F Test: HEMOGLOBIN; Value: 15.4; Range: 14.0-18.0; Units: g/dl; Status: F Test: HEMATOCRIT; Value: 44.4; Range: 42.0-52.0; Units: %; Status: F Test: MEAN CORPUSCULAR VOLUME; Value: 90.0; Range: 80.0-96.0; Units: fl; Status: F Test: MEAN CORPUSCULAR HEMOGLOBIN; Value: 31.3; Range: 27.0-33.0; Units: pg; Status: F Test: MEAN CORPUSCULAR HGB CONC; Value: 34.7; Range: 32.0-36.5; Units: g/dl; Status: F Test: RED CELL DISTRIBUTION WIDTH; Value: 12.8; Range: 11.5-14.5; Units: %; Status: F Test: PLATELET COUNT, AUTOMATED; Value: 247; Range: 150-450; Units: k/mm3; Status: F Lab Order: Drug Eval Toxicology ED Only; SPEC'M 04/04/16 15:03 Test: AMPHETAMINES LEVEL URINE; Value: NEGATIVE; Range: NEGATIVE; Status: F Test: BARBITURATES URINE; Value: NEGATIVE; Range: NEGATIVE; Status: F Test: BENZODIAZEPINES URINE; Value: NEGATIVE; Range: NEGATIVE; Status: F Test: CANNABINOIDS URINE; Value: NEGATIVE; Range: NEGATIVE; Status: F Test: COCAINE METABOLITE URINE; Value: NEGATIVE; Range: NEGATIVE; Status: F Test: METHADONE URINE; Value: NEGATIVE; Range: NEGATIVE; Status: F Test: OPIATES URINE; Value: NEGATIVE; Range: NEGATIVE; Status: F Test: TRICYCLIC ANTIDEPRESS URINE; Value: NEGATIVE; Range: NEGATIVE; Status: F Test Note: ; ALL PRESUMPTIVE POSITIVE FINDINGS ARE UNCONFIRMED NORMAL VALUES THRESHOLD IN NG/ML AMPHETAMINES 1000 METHAMPHETAMINES 1000 BARBITURATES 300 BENZODIAZEPINES 300 CANNABINOIDS (THC) 50 COCAINE METABOLITE 300 METHADONE 300 OPIATES 300 PHENCYCLIDINE 25 TRICYCLIC ANTIDEPRESSANTS 1000 RESULTS ARE FOR MEDICAL PURPOSES ONLY. ALL URINE SPECIMENS WILL BE SAVED FOR 3 DAYS. IF CONFIRMATION OF A PRESUMPTIVE POSTIVE SCREEN RESULT IS DESIRED, CALL CHEMISTRY ([phone]) AND REQUEST URINE TO BE SENT TO REFERENCE LAB. FOR A LIST OF CLOSELY RELATED COMPOUNDS PLEASE CALL THE LAB. Lab Order: Ethyl Alcohol (ethanol); SPEC'M 04/04/16 15:09 Test: ETHYL ALCOHOL (ETHANOL); Value: < 0.003; Range: 0.000-0.010; Units: %; Status: F Lab Order: Liver Profile; [facility] 04/04/16 15:09 Test: AST/SGOT; Value: 23; Range: 15-37; Units: U/L; Status: F Test: ALT/SGPT; Value: 46; Range: 12-78; Units: U/L; Status: F Test: ALKALINE PHOSPHATASE; Value: 99; Range: 45-117; Units: U/L; Status: F Test: BILIRUBIN,TOTAL; Value: 0.4; Range: 0.2-1.0; Units: MG/DL; Status: F Test: BILIRUBIN,DIRECT; Value: < 0.1; Range: 0.0-0.2; Units: MG/DL; Status: F Test: TOTAL PROTEIN; Value: 7.2; Range: 6.4-8.2; Units: GM/DL; Status: F Test: ALBUMIN; Value: 3.9; Range: 3.2-5.2; Units: GM/DL; Status: F Test: ALBUMIN/GLOBULIN RATIO; Value: 1.18; Range: 1.00-1.93; Status: F Lab Order: Salicylate Level; [facility] 04/04/16 15:09 Test: SALICYLATE LEVEL; Value: < 1.7; Range: 5.0-30.0; Abnormal: Below low normal; Units: MG/DL; Status: F Lab Order: Thyroid Stimulating Hormone; [facility] 04/04/16 15:09 Test: THYROID STIMULATING HORMONE; Value: 0.624; Range: 0.358-3.740; Units: uIU/ML; Status: F Lab Order: LITHIUM LEVEL; [facility] 04/04/16 15:09 Test: LITHIUM LEVEL; Value: 0.47; Range: 0.60-1.20; Abnormal: Below low normal; Units: MEQ/L; Status: F Outcome: 06:52 ER care complete, transfer ordered by Provider. fg 09:29 Discharge Assessment: Patient awake, alert and oriented x 3. No cognitive and/or mlb1 functional deficits noted. Patient verbalized understanding of disposition instructions. patient administered narcotics - no. The following High Risk Discharge criteria are identified: None. Transferred to [facility] by EMS ground [facility] ambulance report to accompanying personnel Kateryna Pittman, Chung Tripp Pulley Maintainer, Transfer form completed. Condition: good. No special radiology studies were completed. 09:32 Patient left the ED. mlb1 Signatures: George Lugo, RN RN dwg [place], Pablito, PSA PSA ac Darrius Yee, Security Aide Elizabeth Hill, Andrei Church RN RN mlb1 Dante Massey,ROBERTO DIRECTOR SCRIPT rw1 Brien Blake MD MD br1 Sydni Ellswortha, TRUCK DRIVER FLATBED TRUCK DRIVER FLATBED ar3 Haleigh Smith, PSA PSA jfb Azalea Dorado RN RN hs1 Mariama Doss RN RN jc4 Martine Matamoros, TRUCK DRIVER FLATBED TRUCK DRIVER FLATBED lainey Marliza, Frank dpm Lazaro Grovein, TRUCK DRIVER FLATBED TRUCK DRIVER FLATBED elp James AllneRN RN mgs Dante Dove rn1 Tammie Ann MD MD fg Beck, Gabriela gjb Corrections: (The following items were deleted from the chart) 09:31 09:28 BP 129 / 81; Pulse 62bpm; Resp 61bpm; Pulse Ox 95% RA; Temp 96.5F Oral; Pain mlb1 0/10; mlb1 MTDD
--- NOTE | 2016-04-05 09:33 | EDDOCDS ---
Physician Documentation [facility] Name: Tate Bajwa Age: 45 yrs Sex: Male : 1970 Arrival Date: 04/04/2016 Time: 13:44 Bed OBSERVATION Private MD: Drew Aguilera E. Disposition: 04/05/16 06:[address] [facility] ([place]). Diagnosis is Bipolar disorder, current episode depressed, mild or moderate severity, unspecified. - Reason for transfer: Higher level of care. - Accepting physician is Dr. Odell. - Condition is Stable. - Problem is chronic. - Symptoms have worsened. Historical: - Allergies: Haldol; Mellaril; Nuts; Prolixin; thorazine; - Home Meds: 1. amantadine HCl 100 mg Oral cap 1 cap every morning (Last dose: 04/04/2016) 2. Accupril 10 mg Oral tab 1 tab nightly (Last dose: 04/03/2016) 3. Accupril 10 mg Oral tab 1 tab hs 4. amoxicillin 875 mg Oral tab 1 tab every 12 hours (Last dose: 04/04/2016) 5. Colace 100 mg oral cap 2 caps twice a day (Last dose: 04/04/2016) 6. Debrox 6.5 % Otic drop 2 drop in each ear every other day 7. Flonase Allergy Relief 50 mcg/actuation nasal spsn 1 spray every morning (Last dose: 04/04/2016) 8. Lac-Hydrin 140g Topical twice a day 9. levothyroxine 88 mcg Oral cap 1 cap every morning (Last dose: 04/04/2016) 10. lithium carbonate 600 mg Oral cap 1 cap nightly (Last dose: 04/03/2016) 11. Proscar 5 mg Oral tab 1 tab once daily (Last dose: 04/04/2016) 12. propranolol 40 mg Oral tab 1 tab 3 times per day (Last dose: 04/04/2016 08:00) 13. Prozac 20 mg Oral cap 1 cap every morning (Last dose: 04/04/2016 08:00) 14. quetiapine 100 mg oral tab 1 tab nightly (Last dose: 04/03/2016) 15. tamsulosin 0.4 mg oral cp24 2 caps nightly (Last dose: 04/03/2016) 16. tetrabenazine 25 mg oral tab 1 tab 2 times per day (Last dose: 04/04/2016) 17. trazodone 50 mg Oral tab 1 tab nightly (Last dose: 04/03/2016) 18. Vitamin D-3 with Aloe 120-1,000-10 mg-unit-mg oral tab 2000 unit every morning - PMHx: TBI; Hepatitis C; - PSHx: Pacedmaker insertion; - Social history: Smoking status: Patient states was never smoker of tobacco. No barriers to communication noted, The patient speaks fluent Ukrainian. - Family history: Not pertinent. - : The pt / caregiver states he / she is not on anticoagulants. Home medication list is obtained from the facility [facility]. - Exposure Risk Screening:: None identified. Vital Signs: 04/04 13:46 BP 112 / 86; Pulse 119; Resp 20; Temp 97.0; Pulse Ox 97% ; Height 5 ft. 8 in. (172.72 elp cm) (R); 16:24 BP 134 / 94; Pulse 65; Resp 20; Temp 97.5(O); Pulse Ox 96% on R/A; Weight 105 kg / dpm 231.49 lbs (R); 20:46 BP 144 / 90; Pulse 55; Resp 20; Temp 97.1(O); Pulse Ox 95% on R/A; Pain 0/10; rw1 04/05 05:13 BP 105 / 65; Pulse 70; Resp 20; Temp 96.9(O); Pulse Ox 94% on R/A; Pain 0/10; rw1 09:28 BP 129 / 81; Pulse 62; Resp 16; Temp 96.5(O); Pulse Ox 95% on R/A; Pain 0/10; mlb1 04/04 16:24 Body Mass Index 35.20 (105.00 kg, 172.72 cm) dpm MDM: 04/04 15:00 Consult PFS/PSA/Revenue Officer ordered. br1 15:00 Consult PFS/PSA/Revenue Officer: Patient's case requires discussion with on-call br1 Psychiatrist ordered. 15:00 PSA/PFS to call Nursing [employer], to enter patient data on [place] Safe Act if patient br1 involuntarily admitted or transferred for SI or HI ordered. 15:00 Confirm accurate psychiatric medication list and times of last dosage ordered. br1 15:00 Detain Pt Until Medically/PFS Cleared ordered. br1 15:01 Acetaminophen Level Ordered. EDMS 15:01 Basic Metabolic Profile Ordered. EDMS 15:01 Complete Blood Count Ordered. EDMS 15:01 Drug Eval Toxicology ED Only Ordered. EDMS 15:01 Ethyl Alcohol (ethanol) Ordered. EDMS 15:01 Liver Profile Ordered. EDMS 15:01 Salicylate Level Ordered. EDMS 15:01 Thyroid Stimulating Hormone Ordered. EDMS 16:12 REGULAR DIET PLASTIC MEDRANO+DIET ordered. EDMS 16:54 Acetaminophen Level Reviewed. br1 16:54 Salicylate Level Reviewed. br1 16:54 Basic Metabolic Profile Reviewed. br1 16:54 Complete Blood Count Reviewed. br1 16:54 Drug Eval Toxicology ED Only Reviewed. br1 16:54 Ethyl Alcohol (ethanol) Reviewed. br1 16:54 Liver Profile Reviewed. br1 16:54 Thyroid Stimulating Hormone Reviewed. br1 19:08 Consult PFS/PSA/Revenue Officer complete. rb 19:08 Consult PFS/PSA/Revenue Officer: Patient's case requires discussion with on-call rb Psychiatrist complete. 19:08 PSA/PFS to call Nursing [employer], to enter patient data [place] Safe [place] if patient rb involuntarily admitted or transferred for SI or HI complete. 19:14 Transition of care: After a detail discussion of the patient's case, care is br1 transferred to ED Physician, Dr. Ann. 21:47 Accupril 10 mg PO once ordered. rw1 21:47 Docusate 100 mg PO once ordered. rw1 21:47 [place] 600 mg PO once ordered. rw1 21:47 Propranolol 40 mg PO once ordered. rw1 21:47 QUEtiapine 100 mg PO once ordered. rw1 21:47 Tamsulosin Extended Release 24 hour Capsule 0.8 mg PO once ordered. rw1 21:47 Tetrabenazine 50 mg PO once ordered. rw1 21:47 traZODone 50 mg PO once ordered. rw1 22:14 Financial registration complete. [facility] 22:15 [facility] Payment Agreement was scanned into [employer] and attached to record. [facility] 04/05 04:26 levothyroxine 88 mcg PO once ordered. rw1 04:55 REGULAR DIET PLASTIC MEDRANO+DIET ordered. EDMS 08:12 LITHIUM LEVEL Ordered. EDMS 08:15 LITHIUM LEVEL Reviewed. pc 08:15 Acetaminophen Level Reviewed. pc 08:15 Salicylate Level Reviewed. pc 08:15 Basic Metabolic Profile Reviewed. pc 08:15 Ethyl Alcohol (ethanol) Reviewed. pc 08:15 Liver Profile Reviewed. pc 08:15 Thyroid Stimulating Hormone Reviewed. pc 08:45 Acetaminophen Level Reviewed. pc 08:45 Salicylate Level Reviewed. pc 08:45 LITHIUM LEVEL Reviewed. pc 08:45 Basic Metabolic Profile Reviewed. pc 08:45 Ethyl Alcohol (ethanol) Reviewed. pc 08:45 Liver Profile Reviewed. pc 08:45 Thyroid Stimulating Hormone Reviewed. pc Administered Medications: 04/04 22:13 Not Given (MED UNAVAILABLE): Tetrabenazine 50 mg PO once 22:50 Drug: [place] 600 mg [lithium carbonate 300 mg capsule (2 caps)] Route: PO; 04/05 04:27 Follow up: Response: No Adverse Reaction 04/04 22:50 Drug: Propranolol 40 mg [propranolol 10 mg tablet (4 tabs)] Route: PO; 04/05 04:27 Follow up: Response: No Adverse Reaction 04/04 22:50 Drug: QUEtiapine 100 mg Route: PO; 04/05 04:27 Follow up: Response: No Adverse Reaction 04/04 22:50 Drug: Tamsulosin 0.8 mg [tamsulosin 0.4 mg capsule (2 caps)] Route: PO; 04/05 04:26 Follow up: Response: No Adverse Reaction 04/04 22:50 Drug: traZODone 50 mg [trazodone 50 mg tablet (1 tabs)] Route: PO; 04/05 04:26 Follow up: Response: No Adverse Reaction 04/04 22:51 Drug: Accupril 10 mg Route: PO; 04/05 04:28 Follow up: Response: No Adverse Reaction 04/04 22:51 Drug: Docusate 100 mg [docusate sodium 100 mg capsule (1 caps)] Route: PO; 04/05 04:27 Follow up: Response: No Adverse Reaction 05:12 Drug: levothyroxine 88 mcg Route: PO; [facility] Signatures: Dispatcher [employer] EDMS Kenny Moralez MD MD pc Greene, Daniel, RN RN Milena Alvarenga, SE[employer] PSA Andrei Marie, RN RN mlb1 Dante Massey,[employer] rw1 Brien Blake MD MD br1 Tammie Ann MD MD fg Beck, Gabriela gjb The chart was reviewed and I authenticate all verbal orders and agree with the evaluation and treatment provided.Corrections: (The following items were deleted from the chart) 08:12 08:07 LITHIUM LEVEL+LAB ordered. EDMS EDMS Attachments: 04/04 22:15 [facility] [place] [email or web address]
--- NOTE | 2016-04-07 10:33 | EDDOCDS ---
Nurse's Notes [facility] Name: Tate Bajwa Age: 45 yrs Sex: Male : 1970 Arrival Date: 04/04/2016 Time: 13:44 Bed OBSERVATION Private MD: Drew Aguilera E. Diagnosis: Bipolar disorder, current episode depressed, mild or moderate severity, unspecified Presentation: 04/04 14:45 Presenting complaint: Patient states: MHE, increase in depression today, only reason dwg given is upcoming Valentines Day, calm and cooperative. Staff member from [facility] here with patient. Mental Health Triage Level: Level 2: The patient displays active suicidal ideations. Adult Sepsis Screening: The patient does not have new or worsening altered mentation. Patient's respiratory rate is less than 22. Systolic blood pressure is greater than 100. Patient has a qSOFA score of 0- Negative Sepsis Screen. Suicide/Homicide risk assessment- The patient admits to and/or has been reported to be having suicidal ideations. Status: Patient is not a service station operator or dependent. Transition of care: patient was received from [facility]. 14:45 Acuity: ROSA Level 3 dwg 14:45 Method Of Arrival: Walkin/Carried/Asstd dw Triage Assessment: 14:49 General: Appears in no apparent distress, Behavior is cooperative. Pain: Denies pain. [facility] HIV screening NA for this visit Offered previously. Historical: - Allergies: Haldol; Mellaril; Nuts; Prolixin; thorazine; - Home Meds: 1. amantadine HCl 100 mg Oral cap 1 cap every morning (Last dose: 04/04/2016) 2. Accupril 10 mg Oral tab 1 tab nightly (Last dose: 04/03/2016) 3. Accupril 10 mg Oral tab 1 tab hs 4. amoxicillin 875 mg Oral tab 1 tab every 12 hours (Last dose: 04/04/2016) 5. Colace 100 mg oral cap 2 caps twice a day (Last dose: 04/04/2016) 6. Debrox 6.5 % Otic drop 2 drop in each ear every other day 7. Flonase Allergy Relief 50 mcg/actuation nasal spsn 1 spray every morning (Last dose: 04/04/2016) 8. Lac-Hydrin 140g Topical twice a day 9. levothyroxine 88 mcg Oral cap 1 cap every morning (Last dose: 04/04/2016) 10. lithium carbonate 600 mg Oral cap 1 cap nightly (Last dose: 04/03/2016) 11. Proscar 5 mg Oral tab 1 tab once daily (Last dose: 04/04/2016) 12. propranolol 40 mg Oral tab 1 tab 3 times per day (Last dose: 04/04/2016 08:00) 13. Prozac 20 mg Oral cap 1 cap every morning (Last dose: 04/04/2016 08:00) 14. quetiapine 100 mg oral tab 1 tab nightly (Last dose: 04/03/2016) 15. tamsulosin 0.4 mg oral cp24 2 caps nightly (Last dose: 04/03/2016) 16. tetrabenazine 25 mg oral tab 1 tab 2 times per day (Last dose: 04/04/2016) 17. trazodone 50 mg Oral tab 1 tab nightly (Last dose: 04/03/2016) 18. Vitamin D-3 with Aloe 120-1,000-10 mg-unit-mg oral tab 2000 unit every morning - PMHx: TBI; Hepatitis C; - PSHx: Pacedmaker insertion; - Social history: Smoking status: Patient states was never smoker of tobacco. No barriers to communication noted, The patient speaks fluent Frisian. - Family history: Not pertinent. - : The pt / caregiver states he / she is not on anticoagulants. Home medication list is obtained from the facility MAR. - Exposure Risk Screening:: None identified. Screenin/01 08:22 Screening information is obtained from the patient. Fall risk: No risks identified. mlb1 Assistance ADL's: requires no assistance with activities of daily living. Abuse/DV Screen: The patient / caregiver reports he/she is: not in a situation that causes fear, pain or injury. Nutritional screening: No deficits noted. Advance Directives: Currently, there is no health care proxy. home support is adequate. Assessment: 04/04 15:57 General: Appears in no apparent distress, comfortable, Behavior is cooperative. Pain: dwg Denies pain. Neurological: Level of Consciousness is awake, alert, Oriented to person, place, time. Respiratory: Airway is patent Respiratory effort is even, unlabored, Respiratory pattern is regular, symmetrical. 17:54 General: Appears in no apparent distress, comfortable, Behavior is cooperative, Eating dwg dinner tray, calm and cooperative, offers no complaints.. 19:00 General: Appears in no apparent distress, comfortable, Behavior is cooperative, rw1 restless. Pain: Denies pain. Neurological: Level of Consciousness is awake, alert, obeys commands, Oriented to person, place, time. Respiratory: Airway is patent Respiratory effort is even, unlabored. Derm: Skin is pink, warm & dry. normal. 20:00 Reassessment: Patient appears in no apparent distress at this time. awake resting on rw1 stretcher, safety maintained will monitor.. 21:14 Reassessment: Patient appears in no apparent distress at this time. Patient denies pain rw1 at this time. awake resting on stretcher, safety maintained will monitor.. 22:00 General: Appears in no apparent distress, comfortable, Behavior is quiet, resting on rw1 stretcher with eyes closed, safety maintained. Respiratory: Airway is patent Respiratory effort is even, unlabored. Derm: Skin is pink, warm & dry. normal. 22:29 General: Appears in no apparent distress, Behavior is cooperative. Pain: Denies pain. mgs Neurological: Level of Consciousness is awake, alert, Oriented to person, place, time. Cardiovascular: Capillary refill < 3 seconds Heart tones S1 S2 present. Respiratory: Airway is patent Respiratory effort is even, unlabored, Respiratory pattern is regular, symmetrical. Derm: Skin is pink, warm & dry. 23:02 Reassessment: Patient appears in no apparent distress at this time. resting on rw1 stretcher with eyes closed, safety maintained will monitor.. 04/05 00:05 Reassessment: Patient appears in no apparent distress at this time. resting quietly on rw1 stretcher, safety maintained will monitor.. 01:20 General: Appears in no apparent distress, comfortable, Behavior is quiet, resting on rw1 stretcher with eyes closed, safety maintained. Respiratory: Airway is patent Respiratory effort is even, unlabored. Derm: Skin is pink, warm & dry. normal. 02:15 Reassessment: Patient appears in no apparent distress at this time. resting quietly on rw1 stretcher, safety maintained will monitor.. 03:11 Reassessment: Patient appears in no apparent distress at this time. resting quietly on rw1 stretcher, safety maintained will monitor.. 04:11 General: Appears in no apparent distress, comfortable, Behavior is quiet, resting on rw1 stretcher with eyes closed, safety maintained will monitor.. 05:12 Reassessment: Patient appears in no apparent distress at this time. Patient denies pain rw1 at this time. resting quietly on stretcher, safety maintained will monitor.. 06:04 Reassessment: Patient appears in no apparent distress at this time. Patient denies pain rw1 at this time. resting quietly on stretcher, safety maintained will monitor.. 07:05 General: Appears in no apparent distress, comfortable, Behavior is cooperative, quiet. mlb1 Pain: Denies pain. Neurological: No deficits noted. 07:51 General: Appears in no apparent distress, comfortable, Behavior is cooperative, quiet. mlb1 Pain: Denies pain. 09:05 General: Appears in no apparent distress, comfortable, Behavior is appropriate for age, mlb1 cooperative. Pain: Denies pain. Neurological: No deficits noted. 09:28 General: Appears in no apparent distress, comfortable, Behavior is appropriate for age, mlb1 cooperative. Pain: Denies pain. Neurological: No deficits noted. Mental Health Eval: 04/04 17:21 Mental health consult is initiated at 17:00. Status: The patient is not a service station operator or dependent. [facility]: The patient is not an established patient of [facility]. Referral Information: Evaluation referral is generated by the patient himself / herself. The patient was referred for evaluation because Pt states he is depressed, having intermittent suicidal thoughts. Subjective: The patients chief complaint is I'm really depressed because I can't work. I've been having suicidal thoughts off and on and I don't feel safe going home.. Delusions are denied. Patient's mood is depressed, Hallucinations are denied. Mental Health history: depression. 17:36 Mental Health history: schizophrenia, Mental Health [place] [facility] [facility] [place] Current Outpatient Mental Health Services: Psychiatrist / Agency: Dr Shin at [facility]. Pt lives at [facility] residence. Current living environment is The patient currently lives in a [facility] residence. Patient presents to Emergency Department with the following symptoms within the past 2 weeks: anxiety, depressed mood, feelings of helplessness/hopelessness, poor concentration, sleep disturbance - excessive sleeping, suicidal ideation with no plan. Substance abuse: Pt denies. Mental status exam: Patients appearance is appropriate, Patient's behavior is cooperative, Speech is normal. Affect is blunted Mood is depressed. Hallucinations are denied. Appetite is erratic Memory is good. Energy level is normal. Content of thought is normal. Thought process is intact. Cognitive level is oriented to person, place, time and situation Patient's insight is poor. Judgement is poor. Rapport with interviewer is good. Suicidal Ideation is present with no specific plan. Homicidal ideation is not present. Disposition: Medically cleared for disposition by Brien Blake MD Psychiatric Consult is performed by phone with Dr Jhonatan Mims. [facility] Admission Criteria: The patient is experiencing suicidal ideation. The patient requires continuous observation and/or control to protect self, others or property. The patient's care requires a multi-modal treatment plan under close supervision and coordination due to the complexity and severity of the patient's symptoms. The patient requires administration and monitoring of psychoactive medications by skilled medical providers due to the side effects of the psychoactive medications or significant dosage adjustments. Legal Status: Patient's legal status will be. DSM-V Differential Diagnosis: Schizoaffective Disorder (F25.0) bipolar type (F25.0). Narrative: Pt presents with [facility] staff reporting that he is depressed, having suicidal thoughts without any specific plan. Pt states he gets depressed thinking about Valentines coming up the fact that he doesn't have a date and also that he is unable to work. Pt states he has been sleeping a lot, appetite has been poor, concentration is poor. Pt denies HI, no AH/VH. Pt is not able to CFS at this time. 04/05 05:55 Narrative: [facility] does not have an available bed. Per transfer center [facility] has an available bed and they are requesting a doc to doc to discuss acceptance. Dr. Ann has been provided contact information. Vital Signs: 04/04 13:46 BP 112 / 86; Pulse 119; Resp 20; Temp 97.0; Pulse Ox 97% ; Height 5 ft. 8 in. (172.72 elp cm) (R); 16:24 BP 134 / 94; Pulse 65; Resp 20; Temp 97.5(O); Pulse Ox 96% on R/A; Weight 105 kg (R); dpm 20:46 BP 144 / 90; Pulse 55; Resp 20; Temp 97.1(O); Pulse Ox 95% on R/A; Pain 0/10; rw1 02 05:13 BP 105 / 65; Pulse 70; Resp 20; Temp 96.9(O); Pulse Ox 94% on R/A; Pain 0/10; rw1 09:28 BP 129 / 81; Pulse 62; Resp 16; Temp 96.5(O); Pulse Ox 95% on R/A; Pain 0/10; mlb1 04/04 16:24 Body Mass Index 35.20 (105.00 kg, 172.72 cm) dpm Vitals: 04/04 13:46 Log In Time: April 04, 2016 at 13:44. RN notified that patient meets Red Flag elp criteria. ED Course: 13:45 Patient visited by Janet Grove PCA. elp 13:45 Patient moved to Waiting elp 13:46 Drew Aguilera is Private Physician. elp 13:46 Patient visited by Janet Grove PCA. elp 13:50 Patient moved to [facility] hs 14:17 Patient visited by Keren Ellsworth PCA. ar3 14:17 Assisted to bathroom. Psych Safety Check: Location: Psych Room. Visual Assessment: ar3 Cooperative. 14:35 Patient visited by Frank Agustin. dpm 14:38 Pt greeted and oriented to ED. Patient advised of names of staff involved in care, dpm location of call [place], wait times and NPO status. Patient has correct armband on for positive identification. Placed in gown. Placed in psych safe attire. Bed in low position. Security observing. Property removed, inventory done, secured in belongings bag- placed in locked locker. Placed in locker 5. Psych Safety Check: Location: Psych Room. Visual Assessment: Cooperative. 14:41 Brien Blake MD is Attending Physician. br1 14:48 Triage Initiated dwg 14:50 Patient visited by Keren Ellsworth PCA. ar3 14:50 Patient visited by Keren Ellsworth PCA. ar3 14:50 Assisted to bathroom. ar3 14:59 Patient visited by Brien Blake MD. br1 15:12 Acetaminophen Level Sent. dwg 15:12 Basic Metabolic Profile Sent. dwg 15:12 Complete Blood Count Sent. dwg 15:12 Drug Eval Toxicology ED Only Sent. dwg 15:12 Ethyl Alcohol (ethanol) Sent. dwg 15:12 Liver Profile Sent. dwg 15:12 Salicylate Level Sent. dwg 15:12 Thyroid Stimulating Hormone Sent. dwg 15:24 Patient visited by Frank Agustin. dpm 15:39 Patient visited by Frank Agustin. dpm 15:49 Patient visited by Keren Ellsworth PCA. ar3 16:01 Patient visited by Frank Agustin. dpm 16:17 Patient visited by Frank Agustin. dpm 16:30 Patient visited by Frank Agustin. dpm 16:37 Patient visited by Frank Agustin. dpm 17:02 Patient visited by Frank Agustin. dpm 17:02 role handed off by Mariama Doss RN jc4 17:20 Patient visited by Frank Agustin. dpm 17:37 Patient visited by Frank Agustin. dpm 17:56 Patient visited by George Lugo RN. dwg 18:08 Patient visited by Frank Agustin. dpm 18:22 Patient moved to OBSERVATION br1 18:30 Patient visited by Frank Agustin. dpm 19:03 Patient visited by Frank Agustin. dpm 19:17 Patient visited by Dante Dove. rn1 19:42 Patient visited by Dante Dove. rn1 19:47 Patient visited by Dante Dove. rn1 20:00 Patient visited by Dante Dove. rn1 20:04 Dante Massey LPN is Primary Nurse. rw1 20:17 Patient visited by Dante Dove. rn1 20:32 Patient visited by Dante Dove. rn1 20:44 Patient visited by Dante Dove. rn1 20:47 role handed off by Pablito Alonzo PSA dre 20:59 Patient visited by Dante Dove. rn1 21:18 Patient visited by Dante Massey LPN. rw1 21:29 Patient visited by Dante Dove. rn1 21:49 Patient visited by Dante Dove. rn1 21:57 Patient visited by Dante Dove. rn1 22:08 Patient visited by Datne Dove. rn1 22:15 Patient visited by Dante Dove. rn1 22:15 [facility] Payment Agreement was scanned into [employer] and attached to record. gjb 22:30 Patient visited by James Allen RN. mgs 22:30 Patient visited by Dante Dove. rn1 23:14 Patient visited by HillJason. tr 23:59 [facility] 04/05 [facility]:19 [facility] tr 00:29 Patient visited by [facility] Jason. tr 00:45 Patient visited by [facility] Jason. tr 01:13 Patient visited by [facility] Jason. tr 01:42 Patient visited by [facility] Jason. tr 02:03 Patient visited by [facility] Jason. tr 02:34 Patient visited by [facility] Jason. tr 02:47 Patient visited by [facility] Jason. tr 03:00 Patient visited by [facility] Jason. tr 03:17 Patient visited by [facility] Jason. tr 03:28 Patient visited by [facility] Jason. tr 04:20 Patient visited by [facility] Jason. tr 04:35 Patient visited by [facility] Jason. tr 05:05 Patient visited by [facility] Jason. tr 05:14 Patient visited by [facility] Jason. tr 05:33 Patient visited by [facility] Jason. tr 05:59 Patient visited by [facility] Jason. tr 06:14 Patient visited by [facility] Jason. tr 06:30 Patient visited by [facility] Jason. tr 06:43 Primary Nurse role handed off by Dante Massey LPN rwLobo 06:49 Patient visited by [facility] Jason. tr 06:51 Attending Physician role handed off by Brien Blake MD fg 06:51 Tammie Ann MD is Attending Physician. fg 07:02 [facility] tr 07:15 Psych Safety Check: Location: Psych Room. Visual Assessment: Cooperative. pjf 07:30 Psych Safety Check: Location: Psych Room. Visual Assessment: Cooperative. pjf 07:45 Psych Safety Check: Location: Psych Room. Visual Assessment: Cooperative. pjf 07:52 Patient visited by Andrei Love RN. mlb1 08:06 Patient visited by Darrius Yee Security Aide. pjf 08:20 Patient visited by Darrius Yee Security Aide. pjf 08:34 Patient visited by Darrius Yee Security Aide. pjf 08:53 Patient visited by Darrius Yee Security Aide. pjf 09:06 Patient visited by Andrei Love RN. mlb1 09:06 The patient / caregiver is instructed regarding the plan of care and ED course. mlb1 09:06 No IV's were initiated during this patient's visit. No procedures done that require mlb1 assistance. 09:07 Patient visited by Darrius Yee Security Aide. pjf 09:17 Patient visited by Darrius Yee Security Aide. pjf 15:23 T-Sheet-- Draft Copy was scanned into [employer] and attached to record. gb Administered Medications: 04/04 22:13 Not Given (MED UNAVAILABLE): Tetrabenazine 50 mg PO once 22:50 Drug: [employer] 600 mg [lithium carbonate 300 mg capsule (2 caps)] Route: PO; 04/05 04:27 Follow up: Response: No Adverse Reaction 04/04 22:50 Drug: Propranolol 40 mg [propranolol 10 mg tablet (4 tabs)] Route: PO; 04/05 04:27 Follow up: Response: No Adverse Reaction 04/04 22:50 Drug: QUEtiapine 100 mg Route: PO; 04/05 04:27 Follow up: Response: No Adverse Reaction 04/04 22:50 Drug: Tamsulosin 0.8 mg [tamsulosin 0.4 mg capsule (2 caps)] Route: PO; 04/05 04:26 Follow up: Response: No Adverse Reaction 04/04 22:50 Drug: traZODone 50 mg [trazodone 50 mg tablet (1 tabs)] Route: PO; 04/05 04:26 Follow up: Response: No Adverse Reaction 04/04 22:51 Drug: Accupril 10 mg Route: PO; 04/05 04:28 Follow up: Response: No Adverse Reaction 04/04 22:51 Drug: Docusate 100 mg [docusate sodium 100 mg capsule (1 caps)] Route: PO; 04/05 04:27 Follow up: Response: No Adverse Reaction 05:12 Drug: levothyroxine 88 mcg Route: PO; rw1 Order Results: Lab Order: Acetaminophen Level; SPEC' 04/04/16 15:09 Test: ACETAMINOPHEN LEVEL; Value: < 2.0; Range: 10.0-30.0; Abnormal: Below low normal; Units: UG/ML; Status: F Lab Order: Basic Metabolic Profile; SPEC04/04/16 15:09 Test: GLUCOSE, FASTING; Value: 98; Range: 70-105; Units: MG/DL; Status: F Test: BLOOD UREA NITROGEN; Value: 14; Range: 7-18; Units: MG/DL; Status: F Test: CREATININE FOR GFR; Value: 1.16; Range: 0.70-1.30; Units: MG/DL; Status: F Test: GLOMERULAR FILTRATION RATE; Value: > 60.0; Range: >60; Status: F Test: SODIUM LEVEL; Value: 141; Range: 136-145; Units: MEQ/L; Status: F Test: POTASSIUM SERUM; Value: 4.2; Range: 3.5-5.1; Units: MEQ/L; Status: F Test: CHLORIDE LEVEL; Value: 106; Range: 98-107; Units: MEQ/L; Status: F Test: CARBON DIOXIDE LEVEL; Value: 26; Range: 21-32; Units: MEQ/L; Status: F Test: ANION GAP; Value: 9; Range: 8-16; Units: MEQ/L; Status: F Test: CALCIUM LEVEL; Value: 9.3; Range: 8.5-10.1; Units: MG/DL; Status: F Test Note: ; Units are mL/min/1.73 m2 Chronic Kidney Disease Staging per NKF: Stage I & II GFR >=60 Normal to Mildly Decreased Stage III GFR 30-59 Moderately Decreased Stage IV GFR 15-29 Severely Decreased Stage V GFR <15 Very Little GFR Left ESRD GFR <15 on HVAC R INSTRUCTOR Lab Order: Complete Blood Count; SPEC'M 04/04/16 15:09 Test: WHITE BLOOD COUNT; Value: 7.8; Range: 4.0-10.0; Units: K/mm3; Status: F Test: RED BLOOD COUNT; Value: 4.93; Range: 4.30-6.10; Units: M/mm3; Status: F Test: HEMOGLOBIN; Value: 15.4; Range: 14.0-18.0; Units: g/dl; Status: F Test: HEMATOCRIT; Value: 44.4; Range: 42.0-52.0; Units: %; Status: F Test: MEAN CORPUSCULAR VOLUME; Value: 90.0; Range: 80.0-96.0; Units: fl; Status: F Test: MEAN CORPUSCULAR HEMOGLOBIN; Value: 31.3; Range: 27.0-33.0; Units: pg; Status: F Test: MEAN CORPUSCULAR HGB CONC; Value: 34.7; Range: 32.0-36.5; Units: g/dl; Status: F Test: RED CELL DISTRIBUTION WIDTH; Value: 12.8; Range: 11.5-14.5; Units: %; Status: F Test: PLATELET COUNT, AUTOMATED; Value: 247; Range: 150-450; Units: k/mm3; Status: F Lab Order: Drug Eval Toxicology ED Only; SPEC'M 04/04/16 15:03 Test: AMPHETAMINES LEVEL URINE; Value: NEGATIVE; Range: NEGATIVE; Status: F Test: BARBITURATES URINE; Value: NEGATIVE; Range: NEGATIVE; Status: F Test: BENZODIAZEPINES URINE; Value: NEGATIVE; Range: NEGATIVE; Status: F Test: CANNABINOIDS URINE; Value: NEGATIVE; Range: NEGATIVE; Status: F Test: COCAINE METABOLITE URINE; Value: NEGATIVE; Range: NEGATIVE; Status: F Test: METHADONE URINE; Value: NEGATIVE; Range: NEGATIVE; Status: F Test: OPIATES URINE; Value: NEGATIVE; Range: NEGATIVE; Status: F Test: TRICYCLIC ANTIDEPRESS URINE; Value: NEGATIVE; Range: NEGATIVE; Status: F Test Note: ; ALL PRESUMPTIVE POSITIVE FINDINGS ARE UNCONFIRMED NORMAL VALUES THRESHOLD IN NG/ML AMPHETAMINES 1000 METHAMPHETAMINES 1000 BARBITURATES 300 BENZODIAZEPINES 300 CANNABINOIDS (THC) 50 COCAINE METABOLITE 300 METHADONE 300 OPIATES 300 PHENCYCLIDINE 25 TRICYCLIC ANTIDEPRESSANTS 1000 RESULTS ARE FOR MEDICAL PURPOSES ONLY. ALL URINE SPECIMENS WILL BE SAVED FOR 3 DAYS. IF CONFIRMATION OF A PRESUMPTIVE POSTIVE SCREEN RESULT IS DESIRED, CALL CHEMISTRY ([phone]) AND REQUEST URINE TO BE SENT TO REFERENCE LAB. FOR A LIST OF CLOSELY RELATED COMPOUNDS PLEASE CALL THE LAB. Lab Order: Ethyl Alcohol (ethanol); SPEC'M 04/04/16 15:09 Test: ETHYL ALCOHOL (ETHANOL); Value: < 0.003; Range: 0.000-0.010; Units: %; Status: F Lab Order: Liver Profile; SPEC'M 04/04/16 15:09 Test: AST/SGOT; Value: 23; Range: 15-37; Units: U/L; Status: F Test: ALT/SGPT; Value: 46; Range: 12-78; Units: U/L; Status: F Test: ALKALINE PHOSPHATASE; Value: 99; Range: 45-117; Units: U/L; Status: F Test: BILIRUBIN,TOTAL; Value: 0.4; Range: 0.2-1.0; Units: MG/DL; Status: F Test: BILIRUBIN,DIRECT; Value: < 0.1; Range: 0.0-0.2; Units: MG/DL; Status: F Test: TOTAL PROTEIN; Value: 7.2; Range: 6.4-8.2; Units: GM/DL; Status: F Test: ALBUMIN; Value: 3.9; Range: 3.2-5.2; Units: GM/DL; Status: F Test: ALBUMIN/GLOBULIN RATIO; Value: 1.18; Range: 1.00-1.93; Status: F Lab Order: Salicylate Level; SPEC' 04/04/16 15:09 Test: SALICYLATE LEVEL; Value: < 1.7; Range: 5.0-30.0; Abnormal: Below low normal; Units: MG/DL; Status: F Lab Order: Thyroid Stimulating Hormone; SPEC'M 04/04/16 15:09 Test: THYROID STIMULATING HORMONE; Value: 0.624; Range: 0.358-3.740; Units: uIU/ML; Status: F Lab Order: LITHIUM LEVEL; SPEC'M 04/04/16 15:09 Test: LITHIUM LEVEL; Value: 0.47; Range: 0.60-1.20; Abnormal: Below low normal; Units: MEQ/L; Status: F Outcome: 06:52 ER care complete, transfer ordered by Provider. 09:29 Discharge Assessment: Patient awake, alert and oriented x 3. No cognitive and/or mlb1 functional deficits noted. Patient verbalized understanding of disposition instructions. patient administered narcotics - no. The following High Risk Discharge criteria are identified: None. Transferred to [facility] by EMS ground [facility] ambulance report to accompanying personnel Kateryna Pittman, Chung Tripp Stock Chaser, Transfer form completed. Condition: good. No special radiology studies were completed. 09:32 Patient left the ED. mlb1 Signatures: George Lugo, RN RN dwg Pablito Alonzo, PSA PSA ac Ladi Brower, Reg Reg gb Joselito, Darrius, Security Aide Securpjf Hill, Jason tr Ivan, Andrei Gardiner RN RN mlb1 Dante Massey,BELT BACK OPERATOR BELT BACK OPERATOR rw1 Brien Blake MD MD br1 Keren Ellsworth, VENDING ROUTE DRIVER VENDING ROUTE DRIVER ar3 Haleigh Smith, PSA PSA Azalea Benson RN RN hs1 Mariama Doss RN RN [id number] Martine Matamoros, VENDING ROUTE DRIVER VENDING ROUTE DRIVER lainey Frank Agustin dpm Janet Grove, VENDING ROUTE DRIVER VENDING ROUTE DRIVER elp James Allen,RN RN s Dante Dove rn1 Tammie Ann MD MD fg Beck, Gabriela gjb Corrections: (The following items were deleted from the chart) 09:31 09:28 BP 129 / 81; Pulse 62bpm; Resp 61bpm; Pulse Ox 95% RA; Temp 96.5F Oral; Pain mlb1 0/10; mlb1 Chart Complete MTDD
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
== END 2016-04-05 09:32 ==
LOC: M ED 13:44
DX: F25.0 Schizoaffective disorder, bipolar type (principal); B18.2 Chronic viral hepatitis C; Z87.820 Personal history of traumatic brain injury; Z95.0 Presence of cardiac pacemaker; Z79.899 Other long term (current) drug therapy; Z88.8 Allergy status to other drugs, medicaments and biological substances; Z91.010 Allergy to peanuts
CPT/HCPCS: 36415; 80048; 80076; 80178; 80306; 84443; 85027; 99285; G0480

== ENCOUNTER → 2016-04-11 | Outpatient (CLI) | payer OTHER ==
[2016-04-11 10:10] LABS: BASO % 0.4 % (0.0-1.0); EOS # 0.6 K/mm3 (0.0-0.50); EOS % 6.4 % (0.0-3.0); LARGE UNSTAINED CELL # 0.1 K/mm3 (0.0-0.4); LARGE UNSTAINED CELL % 1.6 % (0.0-4.0); LYMPH # 2.5 K/mm3 (1.5-4.5); LYMPH % 26.4 % (24.0-44.0); MEAN CORPUSCULAR HEMOGLOBIN 30.9 pg (27.0-33.0); MEAN CORPUSCULAR HGB CONC 33.5 g/dl (32.0-36.5); MEAN CORPUSCULAR VOLUME 92.1 fl (80.0-96.0); MONO # 0.5 K/mm3 (0.0-0.8); MONO % 5.5 % (0.0-5.0); NEUTROPHILS # 5.2 K/mm3 (1.8-7.7); NEUTROPHILS % 59.6 % (36.0-66.0); PLATELET COUNT, AUTOMATED 211 k/mm3 (150-450); WHITE BLOOD COUNT 8.7 K/mm3 (4.0-10.0)
[2016-04-11 10:26] LABS: ALBUMIN 3.8 GM/DL (3.2-5.2); ALBUMIN/GLOBULIN RATIO 1.12 (1.00-1.93); ALKALINE PHOSPHATASE 93 U/L (45-117); ALT/SGPT 34 U/L (12-78); ANION GAP 8 MEQ/L (8-16); AST/SGOT 19 U/L (15-37); BILIRUBIN,TOTAL 0.5 MG/DL (0.2-1.0); BLOOD UREA NITROGEN 12 MG/DL (7-18); CALCIUM LEVEL 8.9 MG/DL (8.5-10.1); CARBON DIOXIDE LEVEL 28 MEQ/L (21-32); CHLORIDE LEVEL 107 MEQ/L (98-107); CHOLESTEROL LEVEL 175 MG/DL (<200); CREATININE FOR GFR 1.15 MG/DL (0.70-1.30); GLOMERULAR FILTRATION RATE > 60.0 (>60); GLUCOSE, FASTING 92 MG/DL (70-105); POTASSIUM SERUM 4.4 MEQ/L (3.5-5.1); SODIUM LEVEL 143 MEQ/L (136-145); TOTAL PROTEIN 7.2 GM/DL (6.4-8.2); TRIGLYCERIDES LEVEL 231 MG/DL (<150)
== END | disposition home or self-care (01) ==
LOC: M LAB 09:23
PROVIDERS: ATTEND Family Medicine
DX: N18.2 Chronic kidney disease, stage 2 (mild) (principal); I12.9 Hypertensive chronic kidney disease with stage 1 through stage 4 chronic kidney disease, or unspecified chronic kidney disease

== ENCOUNTER → 2016-08-10 | Outpatient (REF) | payer OTHER ==
[~2016-08-10] MED LIST changes: -COLA100C PO; +COLA100C3 PO
[2016-08-10 16:39] LABS: BASO # 0.1 K/mm3 (0.0-0.2); BASO % 0.6 % (0.0-1.0); EOS # 0.7 K/mm3 (0.0-0.50); EOS % 7.5 % (0.0-3.0); LARGE UNSTAINED CELL # 0.2 K/mm3 (0.0-0.4); LYMPH # 3.2 K/mm3 (1.5-4.5); LYMPH % 34.3 % (24.0-44.0); MEAN CORPUSCULAR HGB CONC 34.7 g/dl (32.0-36.5); MEAN CORPUSCULAR VOLUME 92.2 fl (80.0-96.0); MONO # 0.6 K/mm3 (0.0-0.8); MONO % 7.3 % (0.0-5.0); NEUTROPHILS # 4.3 K/mm3 (1.8-7.7); NEUTROPHILS % 48.3 % (36.0-66.0); PLATELET COUNT, AUTOMATED 208 k/mm3 (150-450); RED CELL DISTRIBUTION WIDTH 13.2 % (11.5-14.5); WHITE BLOOD COUNT 8.8 K/mm3 (4.0-10.0)
[2016-08-10 17:37] LABS: ALBUMIN 3.7 GM/DL (3.2-5.2); ALBUMIN/GLOBULIN RATIO 1.16 (1.00-1.93); ALKALINE PHOSPHATASE 84 U/L (45-117); ALT/SGPT 47 U/L (12-78); ANION GAP 8 MEQ/L (8-16); AST/SGOT 24 U/L (15-37); BILIRUBIN,TOTAL 0.6 MG/DL (0.2-1.0); BLOOD UREA NITROGEN 12 MG/DL (7-18); CALCIUM LEVEL 8.7 MG/DL (8.5-10.1); CARBON DIOXIDE LEVEL 24 MEQ/L (21-32); CHLORIDE LEVEL 106 MEQ/L (98-107); CREATININE FOR GFR 0.93 MG/DL (0.70-1.30); FREE T4 0.99 NG/DL (0.76-1.46); GLOMERULAR FILTRATION RATE > 60.0 (>60); GLUCOSE, FASTING 70 MG/DL (70-105); POTASSIUM SERUM 4.4 MEQ/L (3.5-5.1); SODIUM LEVEL 138 MEQ/L (136-145); TOTAL PROTEIN 6.9 GM/DL (6.4-8.2)
== END ==
LOC: M SFHCPLAZ 10:40
PROVIDERS: ATTEND Family Medicine
DX: N18.2 Chronic kidney disease, stage 2 (mild) (principal); E03.9 Hypothyroidism, unspecified; I12.9 Hypertensive chronic kidney disease with stage 1 through stage 4 chronic kidney disease, or unspecified chronic kidney disease; N41.1 Chronic prostatitis

== ENCOUNTER 2016-10-19 10:14 | Inpatient (IN) | payer OTHER ==
[~2016-10-19] VITALS: Ht 172.7 cm; Wt 105.1 kg
[2016-10-19] MEDS: VITAMIN E 400 INTERNATIONAL UNITS CAP PO SCH (09:00)
[2016-10-19] MEDS: FLUTICASONE PROP 0.05% NASAL SPRAY 16 GM (FLONASE) SCH (09:00)
[2016-10-19] MEDS: CARBAMIDE PEROXIDE 6.5% OTIC SOLN 15ML AU SCH (09:00)
[~2016-10-19 10:14] MED LIST changes: +BENZ0.5T PO; -BENZ5TA PO; -COLA100C3 PO; +COLA100C5 PO; +FLUO20CA19 PO; -FLUO20CA9 PO; +IBUP-1022 PO; +LAMI1TAB9 PO; -LAMI200T3 PO; -RISP1TAB41 PO; +RISP1TAB42 PO; +TRAZ-136 PO; -TRAZ100T4 PO; -ULTR50TA PO; +ULTR50TA8 PO; -VITA100037 PO; +VITA100067 PO
[2016-10-19] MEDS ORDERED: TRAZ50TA11 (10:24)
[2016-10-19] MEDS ORDERED: LITH600C (10:24)
[2016-10-19] MEDS ORDERED: PROZ20CA11 (10:24)
[2016-10-19 11:31] LABS: MEAN CORPUSCULAR HEMOGLOBIN 32.2 pg (27.0-33.0); MEAN CORPUSCULAR HGB CONC 35.5 g/dl (32.0-36.5); MEAN CORPUSCULAR VOLUME 90.7 fl (80.0-96.0); WHITE BLOOD COUNT 8.4 K/mm3 (4.0-10.0)
[2016-10-19 11:51] LABS: ALBUMIN 3.7 GM/DL (3.2-5.2); ALBUMIN/GLOBULIN RATIO 1.16 (1.00-1.93); ALKALINE PHOSPHATASE 76 U/L (45-117); ALT/SGPT 41 U/L (12-78); ANION GAP 8 MEQ/L (8-16); AST/SGOT 22 U/L (15-37); BILIRUBIN,DIRECT < 0.1 MG/DL (0.0-0.2); BILIRUBIN,TOTAL 0.4 MG/DL (0.2-1.0); BLOOD UREA NITROGEN 17 MG/DL (7-18); CALCIUM LEVEL 8.8 MG/DL (8.5-10.1); CARBON DIOXIDE LEVEL 26 MEQ/L (21-32); CHLORIDE LEVEL 107 MEQ/L (98-107); GLOMERULAR FILTRATION RATE > 60.0 (>60); GLUCOSE, FASTING 80 MG/DL (70-105); SODIUM LEVEL 141 MEQ/L (136-145); TOTAL PROTEIN 6.9 GM/DL (6.4-8.2)
[2016-10-19 11:55] LABS: METHADONE URINE NEGATIVE (NEGATIVE)
[2016-10-19 12:02] LABS: LITHIUM LEVEL 0.34 MEQ/L (0.60-1.20)
[2016-10-19] MEDS: AMANTADINE 100 MG CAP PO SCH (14:00)
[2016-10-19] MEDS ORDERED: MOM 30ML SUSPENSION UDC PO PRN (14:45)
[2016-10-19] MEDS ORDERED: MAALOX 30 ML SUSP *UDC PO PRN (14:45)
[2016-10-19 14:50] VITALS: BP 130/92
[2016-10-19] MEDS ORDERED: ACETAMINOPHEN TAB 650MG DOSE (2X325MG) PO PRN (15:15)
[2016-10-19] MEDS ORDERED: FLOM5CAP PO (16:46)
[2016-10-19] MEDS ORDERED: FINA5TAB2 PO (16:46)
[2016-10-19] MEDS ORDERED: PROP40TA PO (16:46)
[2016-10-19] MEDS ORDERED: VITA200038 PO (16:46)
[2016-10-19] MEDS ORDERED: ACCU1TAB PO (16:46)
[2016-10-19] MEDS ORDERED: LITH600C PO (16:46)
[2016-10-19] MEDS ORDERED: QUET1TAB8 PO (16:46)
[2016-10-19] MEDS ORDERED: AMAN100C18 PO ×2 (16:46)
[2016-10-19] MEDS ORDERED: COLA100C5 PO (16:46)
[2016-10-19] MEDS ORDERED: TRAZ50TA11 PO (16:46)
[2016-10-19] MEDS ORDERED: FLUO20CA8 PO (16:46)
[2016-10-19] MEDS ORDERED: SYNT88TA2 PO (16:46)
[2016-10-19] MEDS: LACTIC ACID 12% LOTION 225 GM BTL TOP SCH (21:00)
[2016-10-19] MEDS: traZODone 25MG PER 1/2 TABLET PO SCH (21:44)
[2016-10-19] MEDS: LITHIUM CARBONATE 600 MG CAP PO SCH (21:44)
[2016-10-19] MEDS: DOCUSATE SODIUM 100 MG CAP PO SCH (21:44)
[2016-10-19] MEDS: QUEtiapine FUMARATE 100 MG TAB PO SCH (21:45)
[2016-10-19] MEDS: QUINAPRIL 20 MG TAB PO SCH (21:45)
[2016-10-20] MEDS: LEVOTHYROXINE 88MCG TABLET (0.088 MG) PO SCH (06:17)
[2016-10-20 06:30] VITALS: BP 125/60
[2016-10-20] MEDS: FLUoxetine 20 MG CAP PO SCH (08:33)
[2016-10-20] MEDS: DOCUSATE SODIUM 100 MG CAP PO SCH ×2 (08:33→21:51)
[2016-10-20] MEDS: QUINAPRIL 20 MG TAB PO SCH ×2 (08:34→21:50)
[2016-10-20] MEDS: FLUTICASONE PROP 0.05% NASAL SPRAY 16 GM (FLONASE) SCH (08:34)
[2016-10-20] MEDS: VITAMIN E 400 INTERNATIONAL UNITS CAP PO SCH (08:34)
[2016-10-20] MEDS: FINASTERIDE 5 MG TAB PO SCH (08:34)
[2016-10-20] MEDS: VITAMIN D 1,000 INTERNATIONAL UNITS TABLET PO SCH (08:34)
[2016-10-20] MEDS: AMANTADINE 100 MG CAP PO SCH ×2 (08:34→13:11)
[2016-10-20] MEDS: LACTIC ACID 12% LOTION 225 GM BTL TOP SCH ×2 (08:35→21:51)
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
[2016-10-20] MEDS: TAMSULOSIN 0.4 MG CAP PO SCH (09:49)
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
[2016-10-20] MEDS ORDERED: OLANZapine 5 MG TAB PO PRN (14:15)
[2016-10-20] MEDS: TETRABENAZINE 25 MG PO SCH ×2 (14:24→21:48)
[2016-10-20] MEDS: LORazepam 1 MG TAB PO SCH ×2 (14:24→21:48)
[2016-10-20 18:00] VITALS: BP 147/85
[2016-10-20] MEDS: QUEtiapine FUMARATE 100 MG TAB PO SCH (21:48)
[2016-10-20] MEDS: traZODone 25MG PER 1/2 TABLET PO SCH (21:50)
[2016-10-20] MEDS: LITHIUM CARBONATE 600 MG CAP PO SCH (21:51)
[2016-10-21] MEDS: LEVOTHYROXINE 88MCG TABLET (0.088 MG) PO SCH (05:57)
[2016-10-21 06:52] VITALS: BP 118/64
[2016-10-21] MEDS: LACTIC ACID 12% LOTION 225 GM BTL TOP SCH ×3 (09:00→21:00)
[2016-10-21] MEDS: CARBAMIDE PEROXIDE 6.5% OTIC SOLN 15ML AU SCH (09:04)
[2016-10-21] MEDS: FLUoxetine 20 MG CAP PO SCH (09:04)
[2016-10-21] MEDS: TETRABENAZINE 25 MG PO SCH ×2 (09:04→21:43)
[2016-10-21] MEDS: FLUTICASONE PROP 0.05% NASAL SPRAY 16 GM (FLONASE) SCH (09:04)
[2016-10-21] MEDS: VITAMIN E 400 INTERNATIONAL UNITS CAP PO SCH (09:04)
[2016-10-21] MEDS: DOCUSATE SODIUM 100 MG CAP PO SCH ×2 (09:04→21:42)
[2016-10-21] MEDS: TAMSULOSIN 0.4 MG CAP PO SCH (09:05)
[2016-10-21] MEDS: VITAMIN D 1,000 INTERNATIONAL UNITS TABLET PO SCH (09:05)
[2016-10-21] MEDS: FINASTERIDE 5 MG TAB PO SCH (09:05)
[2016-10-21] MEDS: QUINAPRIL 20 MG TAB PO SCH ×2 (09:05→21:43)
[2016-10-21] MEDS: AMANTADINE 100 MG CAP PO SCH ×2 (09:05→13:13)
[2016-10-21] MEDS: LORazepam 1 MG TAB PO SCH ×2 (09:15→21:42)
--- NOTE | 2016-10-21 12:02 | ECGEPIP ---
Stationary ECG Study [facility] Test Date: 2016-10-20 Pat Name: YUDELKA RAMIREZ Department: Room: [place] [address] Gender: M Adoption Social Worker: : 1970 Requested By: Jennifer Lakhani Order Number: [id number] Reading MD: Leda Cantu Measurements Intervals Errol Rate: 80 P: 29 ID: [id number] QRS: -16 QRSD: 103 T: 32 QT: 359 QTc: 416 Interpretive Statements SINUS RHYTHM Electronically Signed On 10-21-2016 12:02:25 EDT by Leda Cantu
[2016-10-21 18:00] VITALS: BP 131/85
[2016-10-21] MEDS: traZODone 25MG PER 1/2 TABLET PO SCH (21:42)
[2016-10-21] MEDS: QUEtiapine FUMARATE 100 MG TAB PO SCH (21:42)
[2016-10-21] MEDS: LITHIUM CARBONATE 600 MG CAP PO SCH (21:42)
[2016-10-22] MEDS: LEVOTHYROXINE 88MCG TABLET (0.088 MG) PO SCH (06:13)
[2016-10-22 06:56] VITALS: BP 120/69
[2016-10-22] MEDS: DOCUSATE SODIUM 100 MG CAP PO SCH ×2 (08:49→21:54)
[2016-10-22] MEDS: TAMSULOSIN 0.4 MG CAP PO SCH (08:49)
[2016-10-22] MEDS: VITAMIN D 1,000 INTERNATIONAL UNITS TABLET PO SCH (08:49)
[2016-10-22] MEDS: FINASTERIDE 5 MG TAB PO SCH (08:49)
[2016-10-22] MEDS: FLUoxetine 20 MG CAP PO SCH (08:49)
[2016-10-22] MEDS: FLUTICASONE PROP 0.05% NASAL SPRAY 16 GM (FLONASE) SCH (08:49)
[2016-10-22] MEDS: LORazepam 1 MG TAB PO SCH ×2 (08:49→21:52)
[2016-10-22] MEDS: VITAMIN E 400 INTERNATIONAL UNITS CAP PO SCH (08:49)
[2016-10-22] MEDS: TETRABENAZINE 25 MG PO SCH ×2 (08:49→21:56)
[2016-10-22] MEDS: QUINAPRIL 20 MG TAB PO SCH ×2 (08:49→21:56)
[2016-10-22] MEDS: AMANTADINE 100 MG CAP PO SCH ×2 (08:50→13:26)
[2016-10-22] MEDS: LACTIC ACID 12% LOTION 225 GM BTL TOP SCH ×2 (08:53→21:56)
[2016-10-22 18:00] VITALS: BP 134/76
[2016-10-22] MEDS: LITHIUM CARBONATE 600 MG CAP PO SCH (21:52)
[2016-10-22] MEDS: traZODone 25MG PER 1/2 TABLET PO SCH (21:52)
[2016-10-22] MEDS: QUEtiapine FUMARATE 100 MG TAB PO SCH (21:54)
[2016-10-23] MEDS: LEVOTHYROXINE 88MCG TABLET (0.088 MG) PO SCH (06:24)
[2016-10-23 06:30] VITALS: BP 125/78
[2016-10-23] MEDS: FLUTICASONE PROP 0.05% NASAL SPRAY 16 GM (FLONASE) SCH (09:16)
[2016-10-23] MEDS: TAMSULOSIN 0.4 MG CAP PO SCH (09:16)
[2016-10-23] MEDS: FLUoxetine 20 MG CAP PO SCH (09:16)
[2016-10-23] MEDS: LORazepam 1 MG TAB PO SCH ×2 (09:16→20:26)
[2016-10-23] MEDS: DOCUSATE SODIUM 100 MG CAP PO SCH ×2 (09:16→20:31)
[2016-10-23] MEDS: LACTIC ACID 12% LOTION 225 GM BTL TOP SCH ×2 (09:17→20:30)
[2016-10-23] MEDS: VITAMIN E 400 INTERNATIONAL UNITS CAP PO SCH (09:17)
[2016-10-23] MEDS: TETRABENAZINE 25 MG PO SCH ×2 (09:18→20:31)
[2016-10-23] MEDS: QUINAPRIL 20 MG TAB PO SCH ×2 (09:18→20:30)
[2016-10-23] MEDS: AMANTADINE 100 MG CAP PO SCH ×2 (09:19→16:20)
[2016-10-23] MEDS: FINASTERIDE 5 MG TAB PO SCH (09:19)
[2016-10-23] MEDS: VITAMIN D 1,000 INTERNATIONAL UNITS TABLET PO SCH (09:21)
--- NOTE | 2016-10-23 09:45 | MHIPN ---
DATE: 10/21/2016 CHIEF COMPLAINT: Says feels stressed. SUBJECTIVE: Seen for followup. Indicates is upset and frustrated, says wants to leave the [place]. On further inquiry, says feels a bit better, not as stressed. MENTAL STATUS EXAMINATION: A bit unkempt, somewhat guarded. No agitation. No psychomotor retardation. Affect restricted. Currently denies suicidal thoughts or intent. No homicidal ideas or intents. No evidence of psychosis. Cognition grossly intact. Judgment and insight are quite questionable. 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 Intellectual disability. PLAN: Continue current care and observations. Encourage participation in activities in the unit. Continue with Prozac 20 mg daily, amantadine 100 mg in the morning, lithium 600 mg at night. VITAL SIGNS: Blood pressure 118/64. Pulse 83. Temperature 98.6.
--- NOTE | 2016-10-23 11:11 | MHIPN ---
DATE: 10/19/2016 CHIEF COMPLAINT: Says feels okay. SUBJECTIVE: Is seen for followup. Indicates feels okay but does not elaborate. Does say had a good night. Also indicates feels calmer. MENTAL STATUS EXAMINATION: He is lying in bed, superficially cooperative. No agitation. Affect is restricted but reactive. Denies suicidal thoughts or intents. No homicidal ideas or intents. No current evidence of psychosis. Cognition is grossly intact in that he is alert and oriented. Judgment and insight are fair. 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 PLAN: Continue current care and observations. Encourage participation in activities in the unit.
[2016-10-23 18:00] VITALS: BP 158/92
[2016-10-23] MEDS: traZODone 25MG PER 1/2 TABLET PO SCH (20:26)
[2016-10-23] MEDS: QUEtiapine FUMARATE 100 MG TAB PO SCH (20:29)
[2016-10-23] MEDS ORDERED: LITHIUM CARBONATE 300 MG CAP PO SCH (21:00)
[2016-10-24] MEDS: LEVOTHYROXINE 88MCG TABLET (0.088 MG) PO SCH (06:07)
[2016-10-24 07:43] VITALS: BP 119/56
[2016-10-24] MEDS: FINASTERIDE 5 MG TAB PO SCH (08:36)
[2016-10-24] MEDS: FLUTICASONE PROP 0.05% NASAL SPRAY 16 GM (FLONASE) SCH (08:36)
[2016-10-24] MEDS: FLUoxetine 10 MG CAP PO SCH (08:36)
[2016-10-24] MEDS: VITAMIN D 1,000 INTERNATIONAL UNITS TABLET PO SCH (08:36)
[2016-10-24] MEDS: AMANTADINE 100 MG CAP PO SCH ×2 (08:36→16:18)
[2016-10-24] MEDS: DOCUSATE SODIUM 100 MG CAP PO SCH ×2 (08:36→21:11)
[2016-10-24] MEDS: QUINAPRIL 20 MG TAB PO SCH ×2 (08:37→21:13)
[2016-10-24] MEDS: TAMSULOSIN 0.4 MG CAP PO SCH (08:37)
[2016-10-24] MEDS: VITAMIN E 400 INTERNATIONAL UNITS CAP PO SCH (08:37)
[2016-10-24] MEDS: LACTIC ACID 12% LOTION 225 GM BTL TOP SCH ×2 (08:38→21:12)
[2016-10-24] MEDS: LORazepam 1 MG TAB PO SCH ×2 (08:38→21:11)
[2016-10-24] MEDS: TETRABENAZINE 25 MG PO SCH ×2 (08:45→21:12)
--- NOTE | 2016-10-24 16:10 | MHIPN ---
DATE: 10/23/2016 46-year-old male with a diagnosis of: 1. Mood disorder, secondary to traumatic brain injury (TBI). 2. Intellectual disability (mild). SUBJECTIVE: The patient continues to ask when he is going to be transferred to [facility], he says he wants to be transferred to [place]. He says he wants a challenge, he wants to get a job, wants new experiences, he is bored and tired of being in the [place]. He continues to deny having problems with peers at residential home or with staff members. OBJECTIVE: Patient is alert, cooperative, less loud and boisterous than on his initial evaluation. His thought process is slightly tangential, his thought content is still anxious about being sent to [facility]. He denies auditory and visual hallucinations, denies suicidal and homicidal ideation, but he is delusional, with bizarre and paranoid content. His memory is limited, his attention and concentration are limited, insight and judgment are limited. His impulse control is fair. MANAGEMENT PLAN: The patient had an increase in lithium this morning, it was increased to 900 mg by mouth nightly. Will continue to observe and once stable, he will be sent back to [facility]. Will followup.
[2016-10-24 18:22] VITALS: BP 153/77
[2016-10-24] MEDS: LITHIUM CARBONATE 300 MG CAP PO SCH (21:11)
[2016-10-24] MEDS: traZODone 25MG PER 1/2 TABLET PO SCH (21:11)
[2016-10-24] MEDS: QUEtiapine FUMARATE 100 MG TAB PO SCH (21:11)
[2016-10-25] MEDS: LEVOTHYROXINE 88MCG TABLET (0.088 MG) PO SCH (06:02)
[2016-10-25 06:55] VITALS: BP 135/95
[2016-10-25] MEDS: FLUoxetine 10 MG CAP PO SCH (08:24)
[2016-10-25] MEDS: FINASTERIDE 5 MG TAB PO SCH (08:24)
[2016-10-25] MEDS: VITAMIN D 1,000 INTERNATIONAL UNITS TABLET PO SCH (08:24)
[2016-10-25] MEDS: DOCUSATE SODIUM 100 MG CAP PO SCH ×2 (08:24→21:59)
[2016-10-25] MEDS: TETRABENAZINE 25 MG PO SCH ×2 (08:24→21:59)
[2016-10-25] MEDS: VITAMIN E 400 INTERNATIONAL UNITS CAP PO SCH (08:24)
[2016-10-25] MEDS: FLUTICASONE PROP 0.05% NASAL SPRAY 16 GM (FLONASE) SCH (08:24)
[2016-10-25] MEDS: TAMSULOSIN 0.4 MG CAP PO SCH (08:24)
[2016-10-25] MEDS: AMANTADINE 100 MG CAP PO SCH ×2 (08:25→13:50)
[2016-10-25] MEDS: LORazepam 1 MG TAB PO SCH ×2 (08:25→21:59)
[2016-10-25] MEDS: QUINAPRIL 20 MG TAB PO SCH ×2 (08:25→22:01)
[2016-10-25] MEDS: LACTIC ACID 12% LOTION 225 GM BTL TOP SCH ×2 (08:28→21:59)
[2016-10-25 18:00] VITALS: BP 119/69
[2016-10-25] MEDS: traZODone 25MG PER 1/2 TABLET PO SCH (21:59)
[2016-10-25] MEDS: LITHIUM CARBONATE 300 MG CAP PO SCH (21:59)
[2016-10-25] MEDS: QUEtiapine FUMARATE 100 MG TAB PO SCH (21:59)
--- NOTE | 2016-10-25 22:25 | MHIPN ---
DATE: 10/24/2016 46-year-old male with a diagnosis of (1)mood disorder, secondary to traumatic brain injury post traumatic brain injury (TBI), (2) intellectual disability (mild). SUBJECTIVE: The patient reports he is feeling better. He is less irritable. He continues to ask if he is going to be transferred to [facility], discussed with the patient his is not in the detachment area. He cannot be transferred to [facility]. Later on, clinical case manager spoke with the [facility] ([facility]) worker, who reported the patient has been having problems at home because he is refusing to conform to the norms that are related the periods that he is allowed to watch TV. OBJECTIVE: The patient is alert, cooperative with poor insight and judgment. His speech is fluent. His thought process is still tangential. His thought content is redundant about going to [facility]. He denies auditory and visual hallucinations, denies suicidal and homicidal ideation, but he is still delusional overall less than when he was admitted. MANAGEMENT PLAN: The patient's lithium will be increased to 1200 mg by mouth daily. D'Lo level will be obtained today. Will followup.
[2016-10-26] MEDS: LEVOTHYROXINE 88MCG TABLET (0.088 MG) PO SCH (06:07)
[2016-10-26 06:15] VITALS: BP 133/70
[2016-10-26] MEDS: LACTIC ACID 12% LOTION 225 GM BTL TOP SCH (09:00)
[2016-10-26] MEDS: VITAMIN D 1,000 INTERNATIONAL UNITS TABLET PO SCH (09:30)
[2016-10-26] MEDS: LORazepam 1 MG TAB PO SCH (09:30)
[2016-10-26] MEDS: VITAMIN E 400 INTERNATIONAL UNITS CAP PO SCH (09:30)
[2016-10-26] MEDS: TAMSULOSIN 0.4 MG CAP PO SCH (09:30)
[2016-10-26 09:31] VITALS: BP 133/70
[2016-10-26] MEDS: QUINAPRIL 20 MG TAB PO SCH (09:31)
[2016-10-26] MEDS: TETRABENAZINE 25 MG PO SCH (09:32)
[2016-10-26] MEDS: FLUTICASONE PROP 0.05% NASAL SPRAY 16 GM (FLONASE) SCH (09:32)
[2016-10-26] MEDS: AMANTADINE 100 MG CAP PO SCH (09:33)
[2016-10-26] MEDS: FLUoxetine 10 MG CAP PO SCH (09:34)
[2016-10-26] MEDS: DOCUSATE SODIUM 100 MG CAP PO SCH (09:34)
[2016-10-26] MEDS: FINASTERIDE 5 MG TAB PO SCH (09:35)
[2016-10-26] MEDS ORDERED: LITH300C PO (09:42)
[2016-10-26] MEDS ORDERED: TETR25TA PO (10:56)
--- NOTE | 2016-10-26 16:43 | MHIPN ---
DATE: 10/26/2016 A 46-year-old male know for: 1. 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 2. Intellectual disability. SUBJECTIVE: Patient reports feeling better. He says he feels less irritable. Continues to require to be transferred to [facility]. Discussed this issue with this global technical writer. He continues to express his desire to leave the [facility], because he wants a challenge. He said got upset with staff and other residents at transitional living services, not only because he could not watch TV as he pleased, but because they disrespected him. He failed to elaborate on this statement. OBJECTIVE: Patient is alert, cooperative, sleepy. His eye contact is poor. His insight and judgment are limited. His memory is limited. Attention and concentration are fair. His thought process is tangential. Thought content is about going to [facility]. His speech is tangential and circumstantial. He denies auditory and visual hallucinations, denies thought delusions, and denies suicidal or homicidal ideation. ASSESSMENT: Patient is a little bit more talkative, but he has continued to isolate in his room. According to staff members, this is not his usual self, because when he has been before at the inpatient mental health unit, he has been more intrusive, more social. Patient is stable. His lithium level has been increased to 1200 mg a day. His lithium levels are still low. PLAN: Discharge him tomorrow, October 26, to [facility]. Patient is not in danger to self or others. Will followup.
--- NOTE | 2016-10-26 22:23 | MHDSPDOC ---
[facility] Discharge Summary Discharge Summary DATE OF ADMISSION: Oct 19, 2016 at 13:43 DATE OF DISCHARGE: Oct 26, 2016 at 10:30 DISCHARGE DIAGNOSES: 1. Mood Disorder secondary to TBI 2. TBI 3. Intellectual Disability secondary to TBI (mild) REASON FOR ADMISSION: CHIEF COMPLAINT: He came to the hospital because he feels he can't live in the [facility], because he is fed up with it. He's bored and frustrated, he would like to go to [facility] to get a life, get a job, to do meditation. he felt suicidal yesterday, when he came to the ED. HISTORY OF THE PRESENT ILLNESS: Patient is a 46-year-old male, who has been hospitalized at [facility] several times, since 1990. He says he's angry about living in the [facility], he's frustrated, he wants to work in "anything that pays as long as it's legal". 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 He says he has attempted to kill himself before, he slit his wrists , he has overdosed on medications. CONSULTANTS INVOLVED: None TREATMENT AND PROGRESS ON THE UNIT : Patient had a moderate improvement at the Inpatient Mental Health Unit, when he came in, he was only on 600 mgs. of Kress, it was progressively increased to 900 mgs. and then, to 1200 mgs. He had a good response to that increase, he was less boisterous, less impulsive and he said it, less irritable. feed in worker spoke with [facility] staff and they said the problems at the house emerged because the patient didn't want to comply with the rules that are established to watch T.V. Yesterday when the patient was confronted with this, he said there were more problems other that the TV issue. He said he felt disrespected by staff members and peers. The patient has been isolated to his room, according to other staff members, he has never been like that (isolated) he has been boisterous, almost intrusive. Since he was admitted to the [facility], he has insisted in being transferred to [facility], because he "wants a challenge, I want to work. I'm done with the [facility], I want to go to the [facility]". The patient says he feels bored, he has denied suicidal and homicidal ideation, denies auditory and visual hallucinations but he is delusional, he insists in going to [place], even when he has never been in [place], and he has been told that [place] wouldn't accept him. He doesn't quite understand that he can't be transferred to [facility] because he's out of the catchment area and because he has no relatives or friends over there. HOSPITAL COURSE: As above DISCHARGE ASSESSMENT: Patient was not in danger to self or others, was not homicidal, not suicidal, not psychotic. MENTAL STATUS EXAMINATION ON DISCHARGE: Patient is a 46-year old male, who is alert, cooperative, dressed in personal clothes, with poor eye contact. Speech is Slightly tangential. Language skills are fair Thought processes including: Tangential. Thought content: Less anxious. Still says he would like to go to [facility] Abstract reasoning, and computation: Fair Description of associations: Good. Description of abnormal or psychotic thoughts: He denies auditory and visual hallucinations. Denies thought delusions. Denies suicidal and homicidal ideation Judgment: Limited. Insight: Limited. Orientation to Oriented to place and person. Only partially to date and time. Recent and remote memory: Limited. Attention span and concentration: Fair. Language: Fair. Fund of knowledge: Unable to assess. Mood: Euthymic. Affect: Congruent to affect. MEDICATIONS ON DISCHARGE: - Kress 1,200 mgs PO QHS for mood stabilization. - Trazodone 25 mgs. PO QHS for insomnia. - Fluoxetine 20 mgs. PO QD for depression. - Seroquel 100 mgs. PO QHS -Amantadine 100 mgs PO QHS for tremors -Amantadine 200 mgs. PO daily for tremors -Finasteride 5 mgs PO QD for prostate problems -Cholecalciferol 2,000 units PO daily -Colace 200 mgs. PO BID -Synthroid 88 mcg. PO daily -Propanolol 40 mgs. PO TID -Accupril 10 mgs. PO BID -Flomax 0.4 mgs. PO daily -Tetrabenazine 25 mgs. PO BID PLAN/FOLLOWUP ARRANGEMENTS: Patient will return to [facility] The amount of time spent in the coordination of care for this patient was approximately 45 minutes. Vital Signs/I&Os Vital Signs Date Time Temp Pulse Resp B/P (MAP) Pulse Ox O2 Delivery O2 Flow Rate FiO2 10/26/16 09:31 133/70 10/26/16 06:15 97.8 55 18 Room Air 10/24/16 18:22 98 Medications Scheduled Amantadine HCl (Amantadine HCl) 100 Mg Cap, 100 MG PO QAM for TREMORS, (Reported ) Amantadine HCl (Amantadine HCl) 100 Mg Cap, 200 MG PO DAILY for TREMORS, ( Reported) DAILY AT 1400 Cholecalciferol (Vitamin D-3) 2,000 Unit Tab, 2,000 UNIT PO DAILY for SUPPLEMENT , (Reported) Docusate Sodium (Colace) 100 Mg Cap, 200 MG PO BID for CONSTIPATION, (Reported) Finasteride (Finasteride) 5 Mg Tab, 5 MG PO DAILY for PROSTATE, (Reported) Fluoxetine Hcl (Fluoxetine) 20 Mg Cap, 20 MG PO DAILY for MOOD, (Reported) Levothyroxine Sodium (Synthroid) 88 Mcg Tab, 88 MCG PO DAILY for THYROID, ( Reported) Kress Carbonate (Kress Carbonate) 300 Mg Cap, 1,200 MG PO QHS for MOOD, #28 Propranolol HCl (Propranolol HCl) 40 Mg Tab, 40 MG PO TID for HYPERTENSION, ( Reported) Quetiapine Fumerate (Quetiapine Fumarate) 100 Mg Tab, 100 MG PO QHS for SLEEP, ( Reported) Quinapril Hcl (Accupril) 10 Mg Tab, 10 MG PO BID for HYPERTENSION, (Reported) Tamsulosin Hydrochloride (Flomax) 0.4 Mg Cap, 0.4 MG PO DAILY for PROSTATE, ( Reported) Tetrabenazine (Tetrabenazine) 25 Mg Tab, 25 TAB PO BID for TREMORS, #60 ( Reported) Trazodone HCl (Trazodone HCl) 50 Mg Tab, 25 MG PO QHS for SLEEP, (Reported) Allergies Coded Allergies: NUTS (Verified Allergy, Severe, 03/22/13) Ethanol (Verified Allergy, Unknown, 06/10/12) Fluphenazine (Unverified Allergy, Unknown, 07/12/13) Thioridazine (Verified Allergy, Unknown, 06/10/12) Valproic Acid (Verified Allergy, Unknown, 08/18/13) Haloperidol (Verified Adverse Reaction, Mild, INCREASED SEDATION w/ DIAPHORESIS, 06/10/12) BECKY MEYER MD Oct 26, 2016 22:23
== END 2016-10-26 10:30 | disposition home or self-care (01) | DRG 757 ==
LOC: M ED 10:14 → M ED INP 13:43 → M PSY 15:05
PROVIDERS: ADMIT Psychiatry & Neurology Psychiatry; ATTEND Psychiatry & Neurology Psychiatry
DX: F06.30 Mood disorder due to known physiological condition, unspecified (principal); E55.9 Vitamin D deficiency, unspecified; I10 Essential (primary) hypertension; F70 Mild intellectual disabilities; F31.9 Bipolar disorder, unspecified; F41.9 Anxiety disorder, unspecified; F25.9 Schizoaffective disorder, unspecified; M43.12 Spondylolisthesis, cervical region; E03.9 Hypothyroidism, unspecified; B18.2 Chronic viral hepatitis C; J30.9 Allergic rhinitis, unspecified; H61.23 Impacted cerumen, bilateral; G24.01 Drug induced subacute dyskinesia; E66.9 Obesity, unspecified; N40.0 Benign prostatic hyperplasia without lower urinary tract symptoms; G25.81 Restless legs syndrome; Z91.018 Allergy to other foods; Z88.8 Allergy status to other drugs, medicaments and biological substances; Z87.820 Personal history of traumatic brain injury; Z90.49 Acquired absence of other specified parts of digestive tract; Z79.899 Other long term (current) drug therapy; Z95.810 Presence of automatic (implantable) cardiac defibrillator; Z68.35 Body mass index [BMI] 35.0-35.9, adult

== ENCOUNTER → 2016-11-02 | Outpatient (CLI) | payer OTHER ==
[~2016-11-02] MED LIST changes: +AMAN100C18 PO; +FINA5TAB2 PO; +FLUO20CA8 PO; +LITH600C; +LITH600C PO; +PROZ20CA11; +QUET1TAB8 PO; +SYNT88TA2 PO; +TRAZ50TA11; +TRAZ50TA11 PO
== END ==
LOC: M LAB 09:03
PROVIDERS: ATTEND Psychiatry & Neurology Psychiatry
DX: Z51.81 Encounter for therapeutic drug level monitoring (principal); Z79.899 Other long term (current) drug therapy

== ENCOUNTER → 2016-12-21 | Outpatient (REF) | payer OTHER ==
[2016-12-21 13:28] LABS: ALBUMIN 4.1 GM/DL (3.2-5.2); ALBUMIN/GLOBULIN RATIO 1.32 (1.00-1.93); ALKALINE PHOSPHATASE 76 U/L (45-117); ALT/SGPT 48 U/L (12-78); ANION GAP 8 MEQ/L (8-16); AST/SGOT 25 U/L (15-37); BILIRUBIN,TOTAL 0.6 MG/DL (0.2-1.0); BLOOD UREA NITROGEN 13 MG/DL (7-18); CARBON DIOXIDE LEVEL 27 MEQ/L (21-32); CHLORIDE LEVEL 104 MEQ/L (98-107); CHOLESTEROL LEVEL 171 MG/DL (<200); CREATININE FOR GFR 1.17 MG/DL (0.70-1.30); GLOMERULAR FILTRATION RATE > 60.0 (>60); GLUCOSE, FASTING 89 MG/DL (70-105); MAGNESIUM LEVEL 2.2 MG/DL (1.8-2.4); POTASSIUM SERUM 3.9 MEQ/L (3.5-5.1); SODIUM LEVEL 139 MEQ/L (136-145); TOTAL PROTEIN 7.2 GM/DL (6.4-8.2); TRIGLYCERIDES LEVEL 255 MG/DL (<150)
[2016-12-21 13:29] LABS: LITHIUM LEVEL 1.01 MEQ/L (0.60-1.20)
== END ==
LOC: M SFHCPLAZ 10:03
PROVIDERS: ATTEND Family Medicine
DX: N18.2 Chronic kidney disease, stage 2 (mild) (principal); E78.2 Mixed hyperlipidemia; E55.9 Vitamin D deficiency, unspecified

== ENCOUNTER 2017-03-01 14:29 | Emergency (ER) | payer OTHER | END 2017-03-01 17:35 | disposition home or self-care (01) | LOC: M ED 14:29 | DX: S82.831A Other fracture of upper and lower end of right fibula, initial encounter for closed fracture (principal); W00.9XXA Unspecified fall due to ice and snow, initial encounter; X50.9XXA Other and unspecified overexertion or strenuous movements or postures, initial encounter; Y92.410 Unspecified street and highway as the place of occurrence of the external cause; I10 Essential (primary) hypertension; N40.0 Benign prostatic hyperplasia without lower urinary tract symptoms; F25.9 Schizoaffective disorder, unspecified; F31.9 Bipolar disorder, unspecified; Z87.820 Personal history of traumatic brain injury; R25.1 Tremor, unspecified; Z79.890 Hormone replacement therapy; Z79.899 Other long term (current) drug therapy; Z88.8 Allergy status to other drugs, medicaments and biological substances; Z91.048 Other nonmedicinal substance allergy status; Z95.0 Presence of cardiac pacemaker; Z96.9 Presence of functional implant, unspecified | CPT/HCPCS: 73590 ==

== ENCOUNTER → 2017-04-05 | Outpatient (CLI) | payer OTHER ==
[2017-04-05 13:39] LABS: BASO # 0.1 10^3/uL (0.0-0.2); BASO % 0.5 % (0.0-1.0); EOS # 0.5 10^3/uL (0.0-0.50); EOS % 5.2 % (0.0-3.0); HEMATOCRIT 47.6 % (42.0-52.0); HEMOGLOBIN 16.1 g/dl (14.0-18.0); IMMATURE GRANULOCYTE % 0.3 % (0-0); LYMPH # 2.8 10^3/uL (1.5-4.5); LYMPH % 27.1 % (24.0-44.0); MEAN CORPUSCULAR HEMOGLOBIN 31.4 pg (27.0-33.0); MEAN CORPUSCULAR HGB CONC 33.8 g/dl (32.0-36.5); MONO # 0.9 10^3/uL (0.0-0.8); MONO % 8.3 % (0.0-5.0); NEUTROPHILS % 58.6 % (36.0-66.0); PLATELET COUNT, AUTOMATED 224 10^3/uL (150-450); RED BLOOD COUNT 5.12 10^6/uL (4.30-6.10); RED CELL DISTRIBUTION WIDTH 12.3 % (11.5-14.5); WHITE BLOOD COUNT 10.3 10^3/uL (4.0-10.0)
[2017-04-05 14:26] LABS: VITAMIN B12 LEVEL 501 PG/ML (247-911)
[2017-04-05 14:33] LABS: ALBUMIN 4.2 GM/DL (3.2-5.2); ALBUMIN/GLOBULIN RATIO 1.24 (1.00-1.93); ALKALINE PHOSPHATASE 80 U/L (45-117); ALT/SGPT 47 U/L (12-78); ANION GAP 6 MEQ/L (8-16); AST/SGOT 23 U/L (7-37); BILIRUBIN,TOTAL 0.4 MG/DL (0.2-1.0); BLOOD UREA NITROGEN 14 MG/DL (7-18); CALCIUM LEVEL 9.1 MG/DL (8.5-10.1); CARBON DIOXIDE LEVEL 30 MEQ/L (21-32); CHLORIDE LEVEL 104 MEQ/L (98-107); CREATININE FOR GFR 1.05 MG/DL (0.70-1.30); GLOMERULAR FILTRATION RATE > 60.0 (>60); GLUCOSE, FASTING 107 MG/DL (70-100); IRON (FE) 114 UG/DL (65-175); PERCENT SATURATION 32.3 % (19.7-50.0); SODIUM LEVEL 140 MEQ/L (136-145); TOTAL IRON BINDING CAPACITY 353 UG/DL (250-450); TOTAL PROTEIN 7.6 GM/DL (6.4-8.2)
[2017-04-05 14:34] LABS: FREE T4 0.77 NG/DL (0.76-1.46); PSA SCREENING 0.18 NG/ML (< 4.0)
== END ==
LOC: M LAB 12:30
DX: N18.2 Chronic kidney disease, stage 2 (mild) (principal); I12.9 Hypertensive chronic kidney disease with stage 1 through stage 4 chronic kidney disease, or unspecified chronic kidney disease; E03.9 Hypothyroidism, unspecified; N41.1 Chronic prostatitis
CPT/HCPCS: 83550

== ENCOUNTER 2017-06-23 23:10 | Emergency (ER) | payer OTHER ==
[2017-06-24 03:59] LABS: BASO % 0.3 % (0.0-1.0); EOS # 0.2 10^3/uL (0.0-0.50); HEMATOCRIT 44.3 % (42.0-52.0); IMMATURE GRANULOCYTE % 0.3 % (0-3.0); LYMPH # 1.8 10^3/uL (1.5-4.5); LYMPH % 24.2 % (24.0-44.0); MEAN CORPUSCULAR HEMOGLOBIN 31.6 pg (27.0-33.0); MEAN CORPUSCULAR HGB CONC 33.9 g/dl (32.0-36.5); MEAN CORPUSCULAR VOLUME 93.3 fl (80.0-96.0); MONO # 0.8 10^3/uL (0.0-0.8); MONO % 10.7 % (0.0-5.0); NEUTROPHILS # 4.6 10^3/uL (1.8-7.7); NEUTROPHILS % 61.5 % (36.0-66.0); PLATELET COUNT, AUTOMATED 135 10^3/uL (150-450); RED BLOOD COUNT 4.75 10^6/uL (4.30-6.10); RED CELL DISTRIBUTION WIDTH 12.6 % (11.5-14.5); WHITE BLOOD COUNT 7.6 10^3/uL (4.0-10.0)
[2017-06-24 04:22] LABS: ALBUMIN 3.8 GM/DL (3.2-5.2); ALBUMIN/GLOBULIN RATIO 1.19 (1.00-1.93); ALKALINE PHOSPHATASE 70 U/L (45-117); ALT/SGPT 71 U/L (12-78); ANION GAP 6 MEQ/L (8-16); AST/SGOT 44 U/L (7-37); BILIRUBIN,DIRECT 0.1 MG/DL (0.0-0.2); BILIRUBIN,TOTAL 0.5 MG/DL (0.2-1.0); BLOOD UREA NITROGEN 16 MG/DL (7-18); CALCIUM LEVEL 8.4 MG/DL (8.5-10.1); CARBON DIOXIDE LEVEL 27 MEQ/L (21-32); CHLORIDE LEVEL 105 MEQ/L (98-107); CREATININE FOR GFR 1.09 MG/DL (0.70-1.30); GLOMERULAR FILTRATION RATE > 60.0 (>60); GLUCOSE, FASTING 92 MG/DL (70-100); LIPASE 211 U/L (73-393); SODIUM LEVEL 138 MEQ/L (136-145)
[2017-06-24 04:36] LABS: INFLUENZA A AMPLIFICATION NEGATIVE (NEGATIVE); INFLUENZA B AMPLIFICATION NEGATIVE (NEGATIVE)
[2017-06-24] MEDS: NS 1,000 ML IV (04:47)
[2017-06-24] MEDS: ONDANSETRON 4MG/2ML VIAL (J2405) IV (04:47)
[2017-06-24] MEDS: ACETAMINOPHEN TAB 650MG DOSE (2X325MG) PO (06:20)
== END 2017-06-24 07:11 | disposition home or self-care (01) ==
LOC: M ED 23:10
DX: R11.10 Vomiting, unspecified (principal); F31.9 Bipolar disorder, unspecified; F20.9 Schizophrenia, unspecified; E66.9 Obesity, unspecified; I49.5 Sick sinus syndrome; M19.90 Unspecified osteoarthritis, unspecified site; Z95.0 Presence of cardiac pacemaker; D69.6 Thrombocytopenia, unspecified; Z79.899 Other long term (current) drug therapy; Z88.8 Allergy status to other drugs, medicaments and biological substances; Z91.018 Allergy to other foods
CPT/HCPCS: J2405

== ENCOUNTER → 2017-08-10 | Outpatient (REF) | payer MEDICARE, OTHER ==
[2017-08-10 17:24] LABS: BASO # 0.1 10^3/uL (0.0-0.2); BASO % 0.7 % (0.0-1.0); EOS # 0.5 10^3/uL (0.0-0.50); EOS % 5.5 % (0.0-3.0); HEMATOCRIT 44.9 % (42.0-52.0); HEMOGLOBIN 15.4 g/dl (13.5-17.5); IMMATURE GRANULOCYTE % 0.2 % (0-3.0); MEAN CORPUSCULAR HGB CONC 34.3 g/dl (32.0-36.5); MEAN CORPUSCULAR VOLUME 93.2 fl (80.0-96.0); MONO # 0.9 10^3/uL (0.0-0.8); MONO % 9.4 % (0.0-5.0); NEUTROPHILS # 4.7 10^3/uL (1.8-7.7); NEUTROPHILS % 51.2 % (36.0-66.0); PLATELET COUNT, AUTOMATED 218 10^3/uL (150-450); RED BLOOD COUNT 4.82 10^6/uL (4.30-6.10); RED CELL DISTRIBUTION WIDTH 12.3 % (11.5-14.5); WHITE BLOOD COUNT 9.1 10^3/uL (4.0-10.0)
[2017-08-10 17:45] LABS: ALBUMIN 4.2 GM/DL (3.2-5.2); ALBUMIN/GLOBULIN RATIO 1.27 (1.00-1.93); ALKALINE PHOSPHATASE 77 U/L (45-117); ALT/SGPT 75 U/L (12-78); ANION GAP 6 MEQ/L (8-16); AST/SGOT 33 U/L (7-37); BILIRUBIN,TOTAL 0.6 MG/DL (0.2-1.0); BLOOD UREA NITROGEN 13 MG/DL (7-18); CALCIUM LEVEL 9.1 MG/DL (8.5-10.1); CARBON DIOXIDE LEVEL 27 MEQ/L (21-32); CHLORIDE LEVEL 107 MEQ/L (98-107); CREATININE FOR GFR 1.11 MG/DL (0.70-1.30); GLOMERULAR FILTRATION RATE > 60.0 (>60); GLUCOSE, FASTING 80 MG/DL (70-100); POTASSIUM SERUM 4.4 MEQ/L (3.5-5.1); SODIUM LEVEL 140 MEQ/L (136-145); TOTAL PROTEIN 7.5 GM/DL (6.4-8.2)
[2017-08-10 17:48] LABS: LITHIUM LEVEL 0.77 MEQ/L (0.60-1.20)
[2017-08-10 18:00] LABS: ESTIMATED AVERAGE GLUCOSE 100 MG/DL (60-110); HEMOGLOBIN A1c 5.1 %
[2017-08-10 18:07] LABS: TOTAL 25(OH) VITAMIN D 25.8 NG/ML (30.0-100.0)
[2017-08-10 18:08] LABS: PTH INTACT 58.5 PG/ML (18.5-88.0)
== END ==
LOC: M SFHCPLAZ 15:14
DX: N18.2 Chronic kidney disease, stage 2 (mild) (principal); F31.9 Bipolar disorder, unspecified; E55.9 Vitamin D deficiency, unspecified; I12.9 Hypertensive chronic kidney disease with stage 1 through stage 4 chronic kidney disease, or unspecified chronic kidney disease; E66.09 Other obesity due to excess calories; Z68.38 Body mass index [BMI] 38.0-38.9, adult
CPT/HCPCS: 80178

== ENCOUNTER 2017-09-01 21:48 | Inpatient (IN) | payer MEDICARE ==
[2017-09-01] MEDS: PROPRANOLOL 10 MG TAB PO (21:00)
[2017-09-01] MEDS: QUINAPRIL 20 MG TAB PO (21:00)
[2017-09-01 23:57] LABS: HEMATOCRIT 41.7 % (42.0-52.0); HEMOGLOBIN 14.9 g/dl (13.5-17.5); MEAN CORPUSCULAR HEMOGLOBIN 32.2 pg (27.0-33.0); MEAN CORPUSCULAR HGB CONC 35.7 g/dl (32.0-36.5); MEAN CORPUSCULAR VOLUME 90.1 fl (80.0-96.0); PLATELET COUNT, AUTOMATED 178 10^3/uL (150-450); RED BLOOD COUNT 4.63 10^6/uL (4.30-6.10); RED CELL DISTRIBUTION WIDTH 12.1 % (11.5-14.5); WHITE BLOOD COUNT 10.5 10^3/uL (4.0-10.0)
[2017-09-02] MEDS ORDERED: traZODone 50 MG TAB PO (00:15)
[2017-09-02] MEDS ORDERED: ACETAMINOPHEN TAB 650MG DOSE (2X325MG) PO (00:15)
[2017-09-02] MEDS ORDERED: MOM 30ML SUSPENSION UDC PO (00:15)
[2017-09-02] MEDS ORDERED: NICOTINE 21MG/24HR 1 EA TRANSDERMAL TD (00:15)
[2017-09-02] MEDS ORDERED: MAALOX 30 ML SUSP *UDC PO (00:15)
[2017-09-02 00:18] LABS: AMPHETAMINES LEVEL URINE NEGATIVE (NEGATIVE); BARBITURATES URINE NEGATIVE (NEGATIVE); BENZODIAZEPINES URINE NEGATIVE (NEGATIVE); CANNABINOIDS URINE NEGATIVE (NEGATIVE); COCAINE METABOLITE URINE NEGATIVE (NEGATIVE); METHADONE URINE NEGATIVE (NEGATIVE); OPIATES URINE NEGATIVE (NEGATIVE); PHENCYCLIDINE URINE NEGATIVE (NEGATIVE)
[2017-09-02 00:31] LABS: ACETAMINOPHEN LEVEL < 2.0 UG/ML (10.0-30.0); ALBUMIN 3.8 GM/DL (3.2-5.2); ALBUMIN/GLOBULIN RATIO 1.23 (1.00-1.93); ALKALINE PHOSPHATASE 75 U/L (45-117); ALT/SGPT 71 U/L (12-78); ANION GAP 11 MEQ/L (8-16); AST/SGOT 31 U/L (7-37); BILIRUBIN,DIRECT 0.1 MG/DL (0.0-0.2); BILIRUBIN,TOTAL 0.5 MG/DL (0.2-1.0); BLOOD UREA NITROGEN 15 MG/DL (7-18); CARBON DIOXIDE LEVEL 25 MEQ/L (21-32); CHLORIDE LEVEL 104 MEQ/L (98-107); CREATININE FOR GFR 1.15 MG/DL (0.70-1.30); ETHYL ALCOHOL (ETHANOL) < 0.003 % (0.000-0.010); GLOMERULAR FILTRATION RATE > 60.0 (>60); GLUCOSE, FASTING 89 MG/DL (70-100); POTASSIUM SERUM 3.8 MEQ/L (3.5-5.1); SALICYLATE LEVEL < 1.7 MG/DL (5.0-30.0); SODIUM LEVEL 140 MEQ/L (136-145); TOTAL PROTEIN 6.9 GM/DL (6.4-8.2)
[2017-09-02] MEDS: LITHIUM CARBONATE 300 MG CAP PO ×2 (01:51→21:47)
[2017-09-02] MEDS: TAMSULOSIN 0.4 MG CAP PO ×2 (01:51→21:50)
[2017-09-02] MEDS: QUEtiapine FUMARATE 100 MG TAB PO ×2 (01:51→21:47)
[2017-09-02] MEDS: MIRALAX *UNIT DOSE* 17GM PACKET PO ×2 (01:52→21:00)
[2017-09-02] MEDS: LEVOTHYROXINE 88MCG TABLET (0.088 MG) PO (06:11)
[2017-09-02] MEDS: FINASTERIDE 5 MG TAB PO (09:34)
[2017-09-02] MEDS: PROPRANOLOL 10 MG TAB PO ×3 (09:34→21:46)
[2017-09-02] MEDS: FLUoxetine 20 MG CAP PO (09:34)
[2017-09-02] MEDS: FLUTICASONE PROP 0.05% NASAL SPRAY 16 GM (FLONASE) ×2 (09:34→21:47)
[2017-09-02] MEDS: VITAMIN D 1,000 INTERNATIONAL UNITS TABLET PO (09:34)
[2017-09-02] MEDS: DOCUSATE SODIUM 100 MG CAP PO ×2 (09:34→21:46)
[2017-09-02] MEDS: PILL CRUSHER/CUTTER 1 EACH XX (09:35)
[2017-09-02] MEDS: QUINAPRIL 20 MG TAB PO ×2 (09:35→21:49)
[2017-09-02] MEDS: AMANTADINE 100 MG CAP PO ×2 (09:36→13:31)
[2017-09-02] MEDS: LACTIC ACID 12% LOTION 225 GM BTL TOP ×2 (11:26→21:47)
[2017-09-03] MEDS: UNRESOLVED PATIENT OWN MED ORDER XX (00:01)
[2017-09-03] MEDS: LEVOTHYROXINE 88MCG TABLET (0.088 MG) PO (06:00)
[2017-09-03] MEDS: LACTIC ACID 12% LOTION 225 GM BTL TOP ×2 (09:56→21:00)
[2017-09-03] MEDS: FLUTICASONE PROP 0.05% NASAL SPRAY 16 GM (FLONASE) ×2 (09:56→21:39)
[2017-09-03] MEDS: DOCUSATE SODIUM 100 MG CAP PO ×2 (09:57→21:37)
[2017-09-03] MEDS: FLUoxetine 20 MG CAP PO (09:58)
[2017-09-03] MEDS: QUINAPRIL 20 MG TAB PO ×2 (09:58→21:36)
[2017-09-03] MEDS: PROPRANOLOL 10 MG TAB PO ×3 (09:58→21:37)
[2017-09-03] MEDS: AMANTADINE 100 MG CAP PO ×2 (09:58→15:07)
[2017-09-03] MEDS: VITAMIN D 1,000 INTERNATIONAL UNITS TABLET PO (09:58)
[2017-09-03] MEDS: FINASTERIDE 5 MG TAB PO (09:58)
[2017-09-03] MEDS: MIRALAX *UNIT DOSE* 17GM PACKET PO (21:00)
[2017-09-03] MEDS: QUEtiapine FUMARATE 100 MG TAB PO (21:36)
[2017-09-03] MEDS: LITHIUM CARBONATE 300 MG CAP PO (21:37)
[2017-09-03] MEDS: TAMSULOSIN 0.4 MG CAP PO (21:37)
[2017-09-04] MEDS: UNRESOLVED PATIENT OWN MED ORDER XX (00:01)
[2017-09-04] MEDS: LEVOTHYROXINE 88MCG TABLET (0.088 MG) PO (06:16)
[2017-09-04] MEDS: FLUTICASONE PROP 0.05% NASAL SPRAY 16 GM (FLONASE) ×2 (08:31→21:38)
[2017-09-04] MEDS: LACTIC ACID 12% LOTION 225 GM BTL TOP ×2 (08:31→21:38)
[2017-09-04] MEDS: DOCUSATE SODIUM 100 MG CAP PO ×2 (08:32→21:39)
[2017-09-04] MEDS: FLUoxetine 20 MG CAP PO (08:32)
[2017-09-04] MEDS: FINASTERIDE 5 MG TAB PO (08:32)
[2017-09-04] MEDS: QUINAPRIL 20 MG TAB PO ×2 (08:32→21:40)
[2017-09-04] MEDS: VITAMIN D 1,000 INTERNATIONAL UNITS TABLET PO (08:33)
[2017-09-04] MEDS: PROPRANOLOL 10 MG TAB PO ×3 (08:33→21:42)
[2017-09-04] MEDS: AMANTADINE 100 MG CAP PO ×2 (08:33→14:15)
[2017-09-04] MEDS: TETRABENAZINE 12.5 MG PO ×2 (11:51→21:39)
[2017-09-04] MEDS ORDERED: LOPERAMIDE 2 MG CAP PO ×2 (16:15)
[2017-09-04] MEDS: MIRALAX *UNIT DOSE* 17GM PACKET PO (21:38)
[2017-09-04] MEDS: TAMSULOSIN 0.4 MG CAP PO (21:39)
[2017-09-04] MEDS: LITHIUM CARBONATE 300 MG CAP PO (21:40)
[2017-09-04] MEDS: QUEtiapine FUMARATE 100 MG TAB PO (21:40)
[2017-09-04] MEDS: NAPROXEN 250 MG TAB PO (23:22)
[2017-09-05] MEDS: LEVOTHYROXINE 88MCG TABLET (0.088 MG) PO (05:49)
[2017-09-05] MEDS: TETRABENAZINE 12.5 MG PO ×2 (08:53→21:52)
[2017-09-05] MEDS: VITAMIN D 1,000 INTERNATIONAL UNITS TABLET PO (08:54)
[2017-09-05] MEDS: AMANTADINE 100 MG CAP PO ×2 (08:54→13:20)
[2017-09-05] MEDS: PROPRANOLOL 10 MG TAB PO ×3 (08:54→21:53)
[2017-09-05] MEDS: LACTIC ACID 12% LOTION 225 GM BTL TOP ×2 (08:54→21:00)
[2017-09-05] MEDS: PILL CRUSHER/CUTTER 1 EACH XX (08:55)
[2017-09-05] MEDS: DOCUSATE SODIUM 100 MG CAP PO ×2 (08:55→21:52)
[2017-09-05] MEDS: FLUTICASONE PROP 0.05% NASAL SPRAY 16 GM (FLONASE) ×2 (08:55→21:54)
[2017-09-05] MEDS: FINASTERIDE 5 MG TAB PO (08:55)
[2017-09-05] MEDS: FLUoxetine 20 MG CAP PO (08:55)
[2017-09-05] MEDS: QUINAPRIL 20 MG TAB PO ×2 (08:55→21:54)
[2017-09-05] MEDS: MIRALAX *UNIT DOSE* 17GM PACKET PO (21:00)
[2017-09-05] MEDS: LITHIUM CARBONATE 300 MG CAP PO (21:53)
[2017-09-05] MEDS: QUEtiapine FUMARATE 100 MG TAB PO (21:54)
[2017-09-05] MEDS: TAMSULOSIN 0.4 MG CAP PO (21:54)
[2017-09-05] MEDS: NAPROXEN 250 MG TAB PO (23:55)
[2017-09-06] MEDS: LEVOTHYROXINE 88MCG TABLET (0.088 MG) PO (06:14)
[2017-09-06] MEDS: FLUoxetine 20 MG CAP PO (08:41)
[2017-09-06] MEDS: FINASTERIDE 5 MG TAB PO (08:41)
[2017-09-06] MEDS: FLUTICASONE PROP 0.05% NASAL SPRAY 16 GM (FLONASE) (08:41)
[2017-09-06] MEDS: AMANTADINE 100 MG CAP PO (08:41)
[2017-09-06] MEDS: VITAMIN D 1,000 INTERNATIONAL UNITS TABLET PO (08:41)
[2017-09-06] MEDS: DOCUSATE SODIUM 100 MG CAP PO (08:41)
[2017-09-06] MEDS: PROPRANOLOL 10 MG TAB PO (08:42)
[2017-09-06] MEDS: QUINAPRIL 20 MG TAB PO (08:42)
[2017-09-06] MEDS: TETRABENAZINE 12.5 MG PO (08:42)
[2017-09-06] MEDS: LACTIC ACID 12% LOTION 225 GM BTL TOP (08:43)
== END 2017-09-06 11:22 | disposition home or self-care (01) | DRG 881 ==
LOC: M ED INP 09-02 00:09 → M PSY 09-02 01:15 → M ED 21:48
DX: F43.21 Adjustment disorder with depressed mood (principal); F71 Moderate intellectual disabilities; F31.9 Bipolar disorder, unspecified; F25.9 Schizoaffective disorder, unspecified; Z79.899 Other long term (current) drug therapy; Z88.8 Allergy status to other drugs, medicaments and biological substances; Z91.010 Allergy to peanuts; I10 Essential (primary) hypertension; E66.9 Obesity, unspecified; E55.9 Vitamin D deficiency, unspecified; E03.9 Hypothyroidism, unspecified; N40.0 Benign prostatic hyperplasia without lower urinary tract symptoms; G25.81 Restless legs syndrome; B19.20 Unspecified viral hepatitis C without hepatic coma; G24.01 Drug induced subacute dyskinesia; J30.9 Allergic rhinitis, unspecified

== ENCOUNTER → 2017-11-21 | Outpatient (CLI) | payer MEDICARE ==
[2017-11-21 13:21] LABS: LITHIUM LEVEL 0.84 MEQ/L (0.60-1.20)
== END ==
LOC: M LAB 10:58
DX: F31.2 Bipolar disorder, current episode manic severe with psychotic features (principal)
CPT/HCPCS: 80178

== ENCOUNTER → 2017-12-21 | Outpatient (CLI) | payer MEDICARE, OTHER ==
[2017-12-21 11:24] LABS: BASO # 0.1 10^3/uL (0.0-0.2); BASO % 0.8 % (0.0-1.0); EOS # 0.5 10^3/uL (0.0-0.50); EOS % 6.4 % (0.0-3.0); HEMATOCRIT 45.9 % (42.0-52.0); HEMOGLOBIN 15.9 g/dl (13.5-17.5); IMMATURE GRANULOCYTE % 0.4 % (0-3.0); LYMPH # 2.3 10^3/uL (1.5-4.5); LYMPH % 30.6 % (24.0-44.0); MEAN CORPUSCULAR HEMOGLOBIN 32.3 pg (27.0-33.0); MEAN CORPUSCULAR HGB CONC 34.6 g/dl (32.0-36.5); MEAN CORPUSCULAR VOLUME 93.3 fl (80.0-96.0); MONO # 0.7 10^3/uL (0.0-0.8); MONO % 8.5 % (0.0-5.0); NEUTROPHILS # 4.1 10^3/uL (1.8-7.7); NEUTROPHILS % 53.3 % (36.0-66.0); PLATELET COUNT, AUTOMATED 194 10^3/uL (150-450); RED BLOOD COUNT 4.92 10^6/uL (4.30-6.10); RED CELL DISTRIBUTION WIDTH 12.2 % (11.5-14.5); RETIC HEMOGLOBIN EQUIVALENT 36.1 pg (24-36); RETICULOCYTE # 113.2 10^9/L (17-77); RETICULOCYTE % 2.3 % (0.5-1.5); WHITE BLOOD COUNT 7.6 10^3/uL (4.0-10.0)
[2017-12-21 11:33] LABS: ESTIMATED AVERAGE GLUCOSE 103 MG/DL (60-110); HEMOGLOBIN A1c 5.2 %
[2017-12-21 11:34] LABS: INR 0.98; PARTIAL THROMBOPLASTIN TIME 27.3 SECONDS (25.4-37.6); PROTHROMBIN TIME 13.1 SECONDS (12.1-14.4)
[2017-12-21 11:59] LABS: ALBUMIN/GLOBULIN RATIO 1.14 (1.00-1.93); ALKALINE PHOSPHATASE 75 U/L (45-117); ALT/SGPT 71 U/L (12-78); ANION GAP 10 MEQ/L (8-16); AST/SGOT 33 U/L (7-37); BILIRUBIN,TOTAL 0.6 MG/DL (0.2-1.0); BLOOD UREA NITROGEN 11 MG/DL (7-18); CARBON DIOXIDE LEVEL 27 MEQ/L (21-32); CHLORIDE LEVEL 103 MEQ/L (98-107); CREATININE FOR GFR 1.11 MG/DL (0.70-1.30); FREE T4 0.88 NG/DL (0.76-1.46); GLOMERULAR FILTRATION RATE > 60.0 (>60); GLUCOSE, FASTING 76 MG/DL (70-100); MAGNESIUM LEVEL 2.1 MG/DL (1.8-2.4); POTASSIUM SERUM 4.3 MEQ/L (3.5-5.1); SODIUM LEVEL 140 MEQ/L (136-145); TOTAL PROTEIN 7.5 GM/DL (6.4-8.2)
[2017-12-22 16:17] LABS: INSULIN LEVEL 69.5 uIU/mL (2.6-24.9)
== END ==
LOC: M LAB 10:51
DX: E78.2 Mixed hyperlipidemia (principal); I10 Essential (primary) hypertension; E66.09 Other obesity due to excess calories; E03.9 Hypothyroidism, unspecified; Z79.899 Other long term (current) drug therapy; Z79.01 Long term (current) use of anticoagulants
CPT/HCPCS: 83525

== ENCOUNTER → 2018-01-01 | Outpatient (REF) | payer OTHER | LOC: M SFHCPLAZ 13:54 | DX: R91.1 Solitary pulmonary nodule (principal) | CPT/HCPCS: 88305 ==

== ENCOUNTER → 2018-01-23 | Outpatient (CLI) | payer OTHER ==
[2018-01-23 10:50] LABS: BASO # 0.1 10^3/uL (0.0-0.2); BASO % 0.6 % (0.0-1.0); EOS # 0.5 10^3/uL (0.0-0.50); EOS % 6.4 % (0.0-3.0); IMMATURE GRANULOCYTE % 0.1 % (0-3.0); LYMPH # 2.3 10^3/uL (1.5-4.5); LYMPH % 28.6 % (24.0-44.0); MEAN CORPUSCULAR HEMOGLOBIN 32.5 pg (27.0-33.0); MEAN CORPUSCULAR VOLUME 95.3 fl (80.0-96.0); MONO # 0.7 10^3/uL (0.0-0.8); MONO % 8.6 % (0.0-5.0); NEUTROPHILS # 4.4 10^3/uL (1.8-7.7); NEUTROPHILS % 55.7 % (36.0-66.0); PLATELET COUNT, AUTOMATED 191 10^3/uL (150-450); RED BLOOD COUNT 4.93 10^6/uL (4.30-6.10); RED CELL DISTRIBUTION WIDTH 12.2 % (11.5-14.5); WHITE BLOOD COUNT 7.9 10^3/uL (4.0-10.0)
[2018-01-23 10:55] LABS: REASON FOR REVIEW OTHER; SLIDE REVIEW Report; SOURCE PERIPHERAL SMEAR
[2018-01-23 11:29] LABS: ALBUMIN 4.2 GM/DL (3.2-5.2); ALKALINE PHOSPHATASE 79 U/L (45-117); ALT/SGPT 72 U/L (12-78); ANION GAP 4 MEQ/L (8-16); AST/SGOT 29 U/L (7-37); BILIRUBIN,TOTAL 0.7 MG/DL (0.2-1.0); BLOOD UREA NITROGEN 12 MG/DL (7-18); CALCIUM LEVEL 8.9 MG/DL (8.5-10.1); CARBON DIOXIDE LEVEL 29 MEQ/L (21-32); CHLORIDE LEVEL 108 MEQ/L (98-107); CREATININE FOR GFR 1.13 MG/DL (0.70-1.30); GLOMERULAR FILTRATION RATE > 60.0 (>60); GLUCOSE, FASTING 97 MG/DL (70-100); POTASSIUM SERUM 4.1 MEQ/L (3.5-5.1); SODIUM LEVEL 141 MEQ/L (136-145); TOTAL PROTEIN 7.2 GM/DL (6.4-8.2)
[2018-01-26 00:24] LABS: (LD) FRACTION 1 25 % (17-32); (LD) FRACTION 2 35 % (25-40); (LD) FRACTION 3 19 % (17-27); (LD) FRACTION 4 7 % (5-13); (LD) FRACTION 5 14 % (4-20); LDH 155 IU/L (121-224)
== END ==
LOC: M LAB 10:20
DX: C84.A0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, unspecified, unspecified site (principal)
CPT/HCPCS: 83625

== ENCOUNTER → 2018-02-06 | Outpatient (CLI) | payer OTHER ==
[~2018-02-06] MED LIST changes: -/LAMO10TA PO; -/QUET25TA OR; -ACCU1TAB PO; -AMAN100C18 PO; -AMAN10CA PO; -ATEN25TA PO; -BENZ0.5T PO; -CELE20TA PO; -COGENTIN PO; -COLA100C5 PO; -CONGENTIN PO; -DEBR6.5S4 AU; -DESYREL PO; -DOCQ100C PO; -EPI PEN SQ; -EXCETAB80 PO; -FINA5TAB2 PO; -FLOM5CAP PO; -FLON0.05; -FLON0.054; -FLUO20CA19 PO; -FLUO20CA8 PO; -FLUTISP; +GASTROGRAFIN SOLUTION 30ML (Q9963) As Ordered; -IBUP-1022 PO; -IBUP600T26 PO; -IBUP60TA PO; -INDE1CAP5 PO; -INDE80CA PO; -INDERAL PO; +ISOVUE-370 76% 100ML VIAL (Q9967) As Ordered; -LAC-12LO3 TOP; -LAMI1TAB9 PO; -LAMI25TA PO; -LAMO10TA PO; -LEVO100T4 PO; -LEVO88TA3 PO; -LITH150C OR; -LITH300C PO; -LITH300T PO; -LITH45TASA PO; -LITH600C; -LITH600C OR; -LITH600C PO; -Lithium PO; -MIRA3350 PO; -NASONEX; -NIZORAL TOP; -OLYSIO PO; -PERI0.126 MT; -PROP1TAB29 PO; -PROP40TA PO; -PROS5TAB PO; -PROZ20CA11; -QUET1TAB8 PO; -RISP1TAB3 PO; -RISP1TAB42 PO; -ROBA500T PO; -ROPI1TAB PO; -SENO8.6T5 OR; -SERO1TAB PO; -SERO400T PO; -SERO400T3 PO; -SOVALDI PO; -SYNT88TA2 PO; -TETR25TA PO; -TRAZ-136 PO; -TRAZ300T2 PO; -TRAZ50TA11; -TRAZ50TA11 PO; -TRAZO50TA PO; -TRIL600T OR; -TRIL600T PO; -TYLE325T5 PO; -ULTR50TA8 PO; -VITA10005 PO; -VITA100067 PO; -VITA200038 PO; -VITA20008 PO; -inderal PO; -pain medication PO
== END ==
LOC: M RAD 12:16
DX: C84.A0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, unspecified, unspecified site (principal)
CPT/HCPCS: Q9963

== ENCOUNTER → 2018-05-22 | Outpatient (REF) | payer OTHER ==
[~2018-05-22] MED LIST changes: +/LAMO10TA PO; +/QUET25TA OR; +ACCU1TAB PO; +ACET1TAB55 PO; +AMAN100C18 PO; +AMAN10CA PO; +AMMO12CR4 TOP; +ATEN25TA PO; +BENZ0.5T PO; +CELE20TA PO; +COGENTIN PO; +COLA100C5 PO; +CONGENTIN PO; +DEBR6.5S4 AU; +DESYREL PO; +DOCQ100C5 PO; +EPI PEN SQ; +EXCETAB80 PO; +FINA5TAB2 PO; +FLOM0.4C39 PO; +FLON0.05; +FLON0.054; +FLON1SPR; +FLUO20CA19 PO; +FLUO20CA8 PO; +FLUTISP; -GASTROGRAFIN SOLUTION 30ML (Q9963) As Ordered; +IBUP-1022 PO; +IBUP600T26 PO; +IBUP60TA PO; +INDE60CA4 PO; +INDE80CA9 PO; +INDERAL PO; -ISOVUE-370 76% 100ML VIAL (Q9967) As Ordered; +LAC-12LO3 TOP; +LAMI1TAB9 PO; +LAMI25TA PO; +LAMO10TA PO; +LEVO100T4 PO; +LEVO88TA3 PO; +LITH150C OR; +LITH300C PO; +LITH300T PO; +LITH300T2 PO; +LITH45TASA PO; +LITH600C; +LITH600C OR; +LITH600C PO; +Lithium PO; +MIRA3350 PO; +MIRA33504 PO; +NAPR-885 PO; +NASONEX; +NIZORAL TOP; +OLYSIO PO; +PATIENT COMMENTS; +PERI0.126 MT; +PROP10TAB PO; +PROP20TA72 PO; +PROP40TA62 PO; +PROS5TAB PO; +PROZ20CA11; +QUET1TAB8 PO; +RISP1TAB3 PO; +RISP1TAB42 PO; +ROBA500T PO; +ROPI1TAB PO; +SENO8.6T5 OR; +SERO1TAB PO; +SERO400T PO; +SERO400T3 PO; +SOVALDI PO; +SYNT88TA2 PO; +TETR25TA PO; +TRAZ-160; +TRAZ-160 PO; +TRAZ-163 PO; +TRAZ300T2 PO; +TRAZO50TA PO; +TRIL600T OR; +TRIL600T PO; +TYLE325T5 PO; +ULTR50TA8 PO; +VITA10005 PO; +VITA100067 PO; +VITA200038 PO; +VITA20008 PO; +WHEEMIS3 XX; +[UNRECOGNIZED DRUG - CODE] PO; +inderal PO; +pain medication PO
[2018-05-22 13:11] LABS: ALBUMIN 4.3 GM/DL (3.2-5.2); ALT/SGPT 53 U/L (12-78); BILIRUBIN,TOTAL 0.5 MG/DL (0.2-1.0); BLOOD UREA NITROGEN 17 MG/DL (7-18); C REACTIVE PROTEIN QUANTITATIV < 0.30 MG/DL (0.00-0.30); CALCIUM LEVEL 8.7 MG/DL (8.5-10.1); CARBON DIOXIDE LEVEL 26 MEQ/L (21-32); CHLORIDE LEVEL 109 MEQ/L (98-107); CHOLESTEROL LEVEL 178 MG/DL (<200); CHOLESTEROL RISK RATIO 3.016 (<5); CPK CREATINE PHOSPHOKINASE 53 U/L (39-308); CREATININE FOR GFR 1.06 MG/DL (0.70-1.30); GLOMERULAR FILTRATION RATE > 60.0 (>60); GLUCOSE, FASTING 86 MG/DL (70-100); HDL CHOLESTEROL 59 MG/DL (>40); LDL CHOLESTEROL 81 MG/DL (<100); NON-HDL-C 119 MG/DL; POTASSIUM SERUM 4.4 MEQ/L (3.5-5.1); PTH INTACT 46.5 PG/ML (18.5-88.0); SODIUM LEVEL 141 MEQ/L (136-145); TOTAL 25(OH) VITAMIN D 34.2 NG/ML (30.0-100.0); TOTAL PROTEIN 7.1 GM/DL (6.4-8.2); TRIGLYCERIDES LEVEL 191 MG/DL (<150)
== END ==
LOC: M SFHCPLAZ 10:51
PROVIDERS: ATTEND Family Medicine
DX: Z12.5 Encounter for screening for malignant neoplasm of prostate (principal); E78.2 Mixed hyperlipidemia; I10 Essential (primary) hypertension; E66.09 Other obesity due to excess calories; E55.9 Vitamin D deficiency, unspecified

== ENCOUNTER → 2018-09-19 | Outpatient (CLI) | payer OTHER ==
[~2018-09-19] MED LIST changes: -/LAMO10TA PO; -/QUET25TA OR; +ACET-907 PO; +AMAN100C20 PO; +AMAN100T PO; -AMAN10CA PO; -AMMO12CR4 TOP; +AMMO12CR7 TOP; +AUST6TAB PO; -BENZ0.5T PO; +BENZ0.5T23 PO; +FLUT50SP17; -FLUTISP; +IBUP600T42 PO; -IBUP60TA PO; +KETO2CR EXT; +KETO2CR TOP; +LAMI1TAB7 PO; +LAMO100T80 PO; -LAMO10TA PO; +LOSA25TA14 PO; +LOSA50TA88; +LOSA50TA88 PO; +MIRA1POW3 PO; +PROP10TA55 PO; +PROP10TA56 PO; -PROP10TAB PO; +SERO1TAB3 OR; +SERO400T4 PO; -TRAZ-160; -TRAZ-160 PO; +TRAZ-252; +TRAZ-252 PO; +TRAZ1TAB10 PO; -TRAZO50TA PO
[2018-09-19 09:12] LABS: BASO # 0.1 10^3/uL (0.0-0.2); BASO % 0.7 % (0.0-1.0); EOS # 0.7 10^3/uL (0.0-0.50); EOS % 7.9 % (0.0-3.0); HEMATOCRIT 44.8 % (42.0-52.0); HEMOGLOBIN 15.2 g/dl (13.5-17.5); LYMPH # 2.9 10^3/uL (1.5-4.5); LYMPH % 33.2 % (24.0-44.0); MEAN CORPUSCULAR HEMOGLOBIN 32.5 pg (27.0-33.0); MEAN CORPUSCULAR HGB CONC 33.9 g/dl (32.0-36.5); MEAN CORPUSCULAR VOLUME 95.9 fl (80.0-96.0); MONO # 0.7 10^3/uL (0.0-0.8); NEUTROPHILS # 4.4 10^3/uL (1.8-7.7); NEUTROPHILS % 50.1 % (36.0-66.0); PLATELET COUNT, AUTOMATED 169 10^3/uL (150-450); RED BLOOD COUNT 4.67 10^6/uL (4.30-6.10); WHITE BLOOD COUNT 8.8 10^3/uL (4.0-10.0)
[2018-09-19 09:18] LABS: APPEARANCE, URINE CLEAR (CLEAR); BACTERIA, URINE AUTO NEGATIVE (NEGATIVE); BILIRUBIN, URINE AUTO NEGATIVE (NEGATIVE); BLOOD, URINE BLOOD NEGATIVE (NEGATIVE); COLOR, URINE YELLOW (YELLOW); GLUCOSE, URINE (UA) AUTO NEGATIVE (NEGATIVE); KETONE, URINE AUTO NEGATIVE (NEGATIVE); LEUKOCYTE ESTERASE, URINE AUTO TRACE (NEGATIVE); MUCUS, URINE SMALL (NEGATIVE); NITRITE, URINE AUTO NEGATIVE (NEGATIVE); PROTEIN, URINE AUTO NEGATIVE (NEGATIVE); RBC, URINE AUTO 1 /HPF (0-3); SPECIFIC GRAVITY URINE AUTO 1.015 (1.002-1.035); SQUAMOUS EPITHELIAL CELL UR AU 0 /HPF (0-6); UROBILINOGEN, URINE AUTO 0.2 mg/dL (0.0-2.0); WBC, URINE AUTO 16 /HPF (0-3)
[2018-09-19 09:45] LABS: ALBUMIN 3.9 GM/DL (3.2-5.2); ALT/SGPT 50 U/L (12-78); BILIRUBIN,TOTAL 0.6 MG/DL (0.2-1.0); BLOOD UREA NITROGEN 11 MG/DL (7-18); CALCIUM LEVEL 8.8 MG/DL (8.5-10.1); CARBON DIOXIDE LEVEL 25 MEQ/L (21-32); CHLORIDE LEVEL 108 MEQ/L (98-107); CREATININE FOR GFR 1.08 MG/DL (0.70-1.30); GLOMERULAR FILTRATION RATE > 60.0 (>60); GLUCOSE, FASTING 85 MG/DL (70-100); LITHIUM LEVEL 0.93 MEQ/L (0.60-1.20); POTASSIUM SERUM 4.2 MEQ/L (3.5-5.1); SODIUM LEVEL 139 MEQ/L (136-145); TOTAL PROTEIN 6.8 GM/DL (6.4-8.2)
[2018-09-19 09:52] LABS: MALB URINE SIEMENS 14.4 MG/L; MAU/CREAT RATIO 8.2 MCG/MG (0.0-30.0)
[2018-09-19 10:05] LABS: PTH INTACT 67.5 PG/ML (18.5-88.0); TOTAL 25(OH) VITAMIN D 29.9 NG/ML (30.0-100.0)
[2018-09-19 11:01] LABS: HEMOGLOBIN A1c 5.2 %
== END ==
LOC: M LAB 08:20
PROVIDERS: ATTEND Family Medicine
DX: N18.2 Chronic kidney disease, stage 2 (mild) (principal); R73.01 Impaired fasting glucose; F31.9 Bipolar disorder, unspecified

== ENCOUNTER 2018-09-25 18:38 | Inpatient (IN) | payer MEDICAID, OTHER ==
[~2018-09-25] VITALS: Ht 172.7 cm; Wt 115.8 kg
[2018-09-25 11:30] VITALS: BP 132/90
[~2018-09-25 18:38] MED LIST changes: -ACET-907 PO; -AMAN100T PO; -AUST6TAB PO; -KETO2CR EXT; -KETO2CR TOP; -LOSA25TA14 PO; -LOSA50TA88; -LOSA50TA88 PO; -MIRA1POW3 PO; -PROP10TA56 PO
[2018-09-25] MEDS ORDERED: LOSA50TA88 (18:51)
[2018-09-25 20:17] LABS: AMPHETAMINES LEVEL URINE NEGATIVE (NEGATIVE); BARBITURATES URINE NEGATIVE (NEGATIVE); BENZODIAZEPINES URINE NEGATIVE (NEGATIVE); CANNABINOIDS URINE NEGATIVE (NEGATIVE); COCAINE METABOLITE URINE NEGATIVE (NEGATIVE); METHADONE URINE NEGATIVE (NEGATIVE); OPIATES URINE NEGATIVE (NEGATIVE); PHENCYCLIDINE URINE NEGATIVE (NEGATIVE)
[2018-09-25 20:21] LABS: HEMATOCRIT 43.1 % (42.0-52.0); HEMOGLOBIN 14.8 g/dl (13.5-17.5); MEAN CORPUSCULAR HEMOGLOBIN 32.4 pg (27.0-33.0); MEAN CORPUSCULAR HGB CONC 34.3 g/dl (32.0-36.5); MEAN CORPUSCULAR VOLUME 94.3 fl (80.0-96.0); PLATELET COUNT, AUTOMATED 184 10^3/uL (150-450); RED BLOOD COUNT 4.57 10^6/uL (4.30-6.10); WHITE BLOOD COUNT 10.9 10^3/uL (4.0-10.0)
[2018-09-25 20:33] LABS: ACETAMINOPHEN LEVEL < 2.0 UG/ML (10.0-30.0); ALBUMIN 3.8 GM/DL (3.2-5.2); ALT/SGPT 57 U/L (12-78); BILIRUBIN,DIRECT 0.1 MG/DL (0.0-0.2); BILIRUBIN,TOTAL 0.5 MG/DL (0.2-1.0); BLOOD UREA NITROGEN 17 MG/DL (7-18); CALCIUM LEVEL 9.2 MG/DL (8.5-10.1); CARBON DIOXIDE LEVEL 23 MEQ/L (21-32); CHLORIDE LEVEL 107 MEQ/L (98-107); CREATININE FOR GFR 1.09 MG/DL (0.70-1.30); GLOMERULAR FILTRATION RATE > 60.0 (>60); GLUCOSE, FASTING 90 MG/DL (70-100); LITHIUM LEVEL 0.56 MEQ/L (0.60-1.20); POTASSIUM SERUM 3.8 MEQ/L (3.5-5.1); SALICYLATE LEVEL < 1.7 MG/DL (5.0-30.0); SODIUM LEVEL 137 MEQ/L (136-145); TOTAL PROTEIN 6.8 GM/DL (6.4-8.2)
[2018-09-25 20:34] LABS: ETHYL ALCOHOL (ETHANOL) < 0.003 % (0.000-0.010)
[2018-09-25] MEDS ORDERED: KETO2CR TOP (20:42)
[2018-09-25] MEDS ORDERED: AUST6TAB PO ×2 (20:42→22:58)
[2018-09-25] MEDS ORDERED: LOSA25TA14 PO (20:42)
[2018-09-25] MEDS: LOSARTAN 25 MG TAB PO SCH (21:00)
[2018-09-25] MEDS ORDERED: traZODone 50 MG TAB PO PRN (22:30)
[2018-09-25] MEDS ORDERED: MAALOX 30 ML SUSP *UDC PO PRN (22:30)
[2018-09-25] MEDS ORDERED: ACETAMINOPHEN TAB 650MG DOSE (2X325MG) PO PRN (22:30)
[2018-09-25] MEDS ORDERED: MOM 30ML SUSPENSION UDC PO PRN (22:30)
[2018-09-25] MEDS ORDERED: AMAN100T PO ×2 (22:58)
[2018-09-25] MEDS ORDERED: LOSA50TA88 PO (23:08)
[2018-09-25] MEDS ORDERED: KETO2CR EXT (23:08)
[2018-09-25] MEDS ORDERED: ACET-907 PO (23:08)
[2018-09-25] MEDS ORDERED: MIRA1POW3 PO (23:08)
[2018-09-25] MEDS ORDERED: PROP10TA56 PO (23:08)
[2018-09-26] MEDS: LITHIUM CARBONATE 300 MG CAP PO SCH ×2 (00:20→21:34)
[2018-09-26] MEDS: DOCUSATE SODIUM 100 MG CAP PO SCH ×3 (00:20→21:34)
[2018-09-26] MEDS: NAPROXEN 250 MG TAB PO PRN (00:21)
[2018-09-26] MEDS: traZODone 25MG PER 1/2 TABLET PO SCH ×2 (00:22→21:34)
[2018-09-26] MEDS: QUEtiapine FUMARATE 100 MG TAB PO SCH ×2 (00:22→21:34)
[2018-09-26] MEDS: TAMSULOSIN 0.4 MG CAP PO SCH ×2 (00:22→21:34)
[2018-09-26] MEDS: LEVOTHYROXINE 88MCG TABLET (0.088 MG) PO SCH (06:15)
[2018-09-26 06:30] VITALS: BP 149/87
[2018-09-26] MEDS: FINASTERIDE 5 MG TAB PO SCH (08:32)
[2018-09-26] MEDS: LACTIC ACID 12% LOTION 225 GM BTL TOP SCH ×2 (08:32→21:36)
[2018-09-26] MEDS: VITAMIN D 1,000 INTERNATIONAL UNITS TABLET PO SCH (08:32)
[2018-09-26] MEDS: KETOCONAZOLE 2% CREAM EXT SCH ×2 (08:32→21:35)
[2018-09-26] MEDS: AMANTADINE 100 MG CAP PO SCH ×2 (08:32→14:07)
--- NOTE | 2018-09-26 08:32 | HPEPDOC ---
General Date of Admission Sep 25, 2018 at 22:28 Date of Service: Sep 26, 2018 Attending Physician: MASON CHI MD Chief Complaint The patient is a 48-year-old male admitted with a reason for visit of Unspecified Depressive Disorder. History of Present Illness Aydee Ybarra is a 48-year-old male, past medical history significant for obesity, depression, brought to the emergency room and admitted to inpatient psychiatric unit on account of suicidal ideation and attemp. Patient had made cuts to his right wrist as a suicide attempt. On assessment, he complains of pruritus with bedbugs. Denies chills, fever, chest pain, shortness of breath, any other discomfort. Home Medications Scheduled Amantadine HCl (Amantadine) 100 Mg Tablet, 100 MG PO QAM, (Reported) Amantadine HCl (Amantadine) 100 Mg Tablet, 200 MG PO DAILY, (Reported) 1400 Ammonium Lactate (Ammonium Lactate) 12 % Cre, 1 DOSE TOP BID, (Reported) APPLY TO FEET Cholecalciferol (Vitamin D3) (Vitamin D3) 2,000 Unit Tab, 2,000 UNIT PO DAILY, (Reported) Deutetrabenazine (Austedo) 6 Mg Tablet, 6 MG PO BID, (Reported) Docusate Sodium (Colace) 100 Mg Cap, 200 MG PO BID, (Reported) Finasteride (Finasteride) 5 Mg Tab, 5 MG PO DAILY, (Reported) Fluoxetine Hcl (Fluoxetine HCl) 20 Mg Cap, 20 MG PO DAILY, (Reported) Fluticasone Propionate (Flonase Allergy Relief) 50 Mcg/Act Spr, 1 SPRAY NA DAILY, (Reported) Ketoconazole (Ketoconazole) 15 Gm Cream..g., 1 DOSE EXT BID, (Reported) APPLY TO FEET Levothyroxine Sodium (Synthroid) 88 Mcg Tab, 88 MCG PO DAILY, (Reported) [place]orn Carbonate ([place]orn Carbonate) 300 Mg Tab, 1,200 MG PO QHS, (Reported) Losartan Potassium (Losartan Potassium) 50 Mg Tablet, 25 MG PO BID, (Reported) Polyethylene Glycol 3350 (Miralax) 17 Gm Powd.pack, 8 GM PO QHS, (Reported) IN 8 OZ OF LIQUID Propranolol HCl (Propranolol HCl) 10 Mg Tablet, 10 MG PO TID, (Reported) Quetiapine Fumarate (Quetiapine Fumarate) 100 Mg Tab, 100 MG PO QHS, (Reported) Tamsulosin HCl (Flomax) 0.4 Mg Cap, 0.8 MG PO QHS, (Reported) WITH FOOD OR MILK Trazodone HCl (Trazodone HCl) 50 Mg Tab, 25 MG PO QHS, (Reported) Scheduled PRN Acetaminophen (Tylenol) 325 Mg Tablet, 650 MG PO Q4H PRN for PAIN / FEVER, (Reported) Naproxen (Naproxen) 500 Mg Tab, 500 MG PO BID PRN for PAIN, (Reported) Allergies Coded Allergies: NUTS (Verified Allergy, Severe, 03/22/13) divalproex sodium (Verified Allergy, Unknown, 09/25/18) fluphenazine (Verified Allergy, Unknown, 09/25/18) haloperidol (Verified Allergy, Unknown, 09/25/18) thioridazine (Verified Allergy, Unknown, 09/25/18) valproic acid (Verified Allergy, Unknown, 09/25/18) Past Medical History Medical History Hypertension Hypothyroidism Hepatitis C Benign prostate hypertrophy Schizoaffective disorder Bipolar disorder Morbid obesity Surgical History pacemaker placement Right leg surgery Appendectomy Family History Significant Family History: No pertinent family hx Social History * Smoker: Denies Alcohol: Denies Drugs: denies A-FIB/CHADSVASC A-FIB History Current/History of A-Fib/PAF?: No Current PO Anticoag Therapy: No Review of Systems Other systems Limited review of systems completed due to patient's clinical state and thought process Physical Examination Other physical findings GENERAL: NAD SKIN : Warm, superficial cuts to right inner wrist, pruritus, with skin lesions and eruptions HEENT: Atraumatic, normocephalic, PERRL, CARDIOVASCULAR: Regular rate and rhythm, S1S2, no JVD, no edema, distal pulses + palpable RESP: CTAB, no accessory muscle use noted ABDOMEN: BS+ non distended non tender MS: no joint deformities NEURO: Alert and oriented x 3, CN2-12 grossly intact PSYCH: no anxiety or agitation Vital Signs Vital Signs Date Time Temp Pulse Resp B/P (MAP) Pulse Ox O2 Delivery O2 Flow Rate FiO2 09/26/18 06:30 98.0 58 16 149/87 (107) 09/25/18 22:54 97 Room Air Laboratory Data Labs 24H Laboratory Tests 2 09/25/18 19:42: Nucleated Red Blood Cells % (auto) 0.0, Anion Gap 7L, Glomerular Filtration Rate > 60.0, Calcium Level 9.2, Aspartate Amino Transf (AST/SGOT) 28, Alanine Aminotransferase (ALT/SGPT) 57, Alkaline Phosphatase 66, Total Bilirubin 0.5, Direct Bilirubin 0.1, Total Protein 6.8, Albumin 3.8, Albumin/Globulin Ratio 1.27, Thyroid Stimulating Hormone (TSH) 1.970, Salicylates Level < 1.7L, Urine Amphetamines Screen NEGATIVE, Urine Benzodiazepines Screen NEGATIVE, Urine Opiates Screen NEGATIVE, Urine Methadone Screen NEGATIVE, Acetaminophen Level < 2.0L, Urine Barbiturates Screen NEGATIVE, Urine Phencyclidine Screen NEGATIVE, [place] Level 0.56L, Urine Cocaine Metabolite Screen NEGATIVE, Urine Cannabinoids Screen NEGATIVE, Ethyl Alcohol Level < 0.003 CBC/BMP Laboratory Tests 09/25/18 19:42 Red Blood Count 4.57, Mean Corpuscular Volume 94.3, Mean Corpuscular Hemoglobin 32.4, Mean Corpuscular Hemoglobin Concent 34.3, Red Cell Distribution Width 12.0 Assessment/Plan Bedbug infestation Hypertension Hypothyroidism Obesity Benign prostate hypertrophy Bipolar disorder Schizoaffective disorder PLAN Continue medication for management of underlying blood pressure and hypothyroidi sm. Prescribe medication for bedbug infestation and symptomatic relief of intense pruritus Underlying acute psychiatric symptoms and presentation to be managed by primary team Plan / VTE VTE Prophylaxis Ordered?: No VTE Exclusion Mechanical Proph: Low Risk for VTE MALINA MANUEL [facility] Sep 26, 2018 08:32
[2018-09-26] MEDS: LOSARTAN 25 MG TAB PO SCH ×2 (08:33→21:34)
[2018-09-26] MEDS ORDERED: FLUoxetine 20 MG CAP PO SCH (09:00)
[2018-09-26] MEDS: FLUTICASONE PROP 0.05% NASAL SPRAY 16 GM (FLONASE) SCH (09:00)
[2018-09-26] MEDS ORDERED: PERMETHRIN 5% CREAM 60 GM TOP ONE (09:00)
[2018-09-26] MEDS: DEUTETRABENAZINE 6 MG PO SCH ×2 (11:27→21:35)
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
[2018-09-26] MEDS ORDERED: FLUoxetine 10 MG CAP PO ONE (12:00)
[2018-09-26 18:00] VITALS: BP 146/89
[2018-09-27] MEDS: LEVOTHYROXINE 88MCG TABLET (0.088 MG) PO SCH (06:17)
[2018-09-27 06:39] VITALS: BP 124/76
[2018-09-27] MEDS: FINASTERIDE 5 MG TAB PO SCH (08:28)
[2018-09-27] MEDS: DOCUSATE SODIUM 100 MG CAP PO SCH ×2 (08:28→21:55)
[2018-09-27] MEDS: DEUTETRABENAZINE 6 MG PO SCH ×2 (08:28→21:00)
[2018-09-27] MEDS: FLUoxetine 10 MG CAP PO SCH (08:28)
[2018-09-27] MEDS: FLUTICASONE PROP 0.05% NASAL SPRAY 16 GM (FLONASE) SCH (08:28)
[2018-09-27] MEDS: AMANTADINE 100 MG CAP PO SCH ×2 (08:28→13:18)
[2018-09-27] MEDS: LACTIC ACID 12% LOTION 225 GM BTL TOP SCH ×2 (08:31→22:00)
[2018-09-27] MEDS: VITAMIN D 1,000 INTERNATIONAL UNITS TABLET PO SCH (08:31)
[2018-09-27] MEDS: LOSARTAN 25 MG TAB PO SCH ×2 (08:31→21:57)
[2018-09-27] MEDS: KETOCONAZOLE 2% CREAM EXT SCH ×2 (08:32→21:59)
[2018-09-27] MEDS ORDERED: PROPRANOLOL 10 MG TAB PO ONE (10:00)
--- NOTE | 2018-09-27 10:02 | MHIPNPDOC ---
[facility] Progress Note Progress Note DATE OF SERVICE: 09/27/18 HISTORY: Patient is a 48 -year-old , male, with a history of schizoaffective d/o, intellectual disability, TBI, previous admits [facility], history 2 prior SA, currently residing at [facility] who presented to ED after he cut his wrist with a plastic bottle as a SA stating "I wanted to then I changed my mind" and stopped secondary to depression and SI triggered by an inability to get a job in the last 3 years per ED. 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 He stated in the ED his "talent is being waisted." He endorsed depression, irritability, poor concentration, insomnia, increased appetite and 30lb wt gain in the ED. He denies SI/HI, hallucinations in the ED. Pt is a poor historian so history gathered from previous chart review. Pt seen and states he's here b/c he cut his right wrist (superficial) due to feelings depressed b/c "I try to use words and I'm a very talented paula and it get discouraging." States he feels depressed today but denies SI. 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 He is preoccupied and delusional slightly regarding being an "artist." He is a very poor historian. He states his medications are "ok." Agreeable to increasing prozac for depression. States TD movements are "OK" today and do appeared to lessen when he's sitting quietly. Denies SI/HI, hallucinations. Feels safe here. VITAL SIGNS: See below. NEW TEST RESULTS: [place] Level 0.87 CURRENT MEDICATIONS: See below. MENTAL STATUS EXAMINATION: General Appearance: unkempt, ds/not appear stated age (older), hospital scrubs/clothing, other (very superficial cut on right wrist) Build: overweight Demeanor: other (improved akathisia predominant when walking in then lessened with sitting in chair calmly (torso mostly and face)) Eye Contact: fair Activity: other (akathisia predominant when walking in then lessened with sitting in chair calmly (torso mostly and face)) Behavior: cooperative, akathisia, tardive dyskinesia Speech: clear, non-spontaneous, other (limited to short responses mostly yes/no) Mood: less depressed Mood "better" Affect: constricted, flat, congruent Thought Process: concrete, associative, less depressed Thought Content (Delusions): denies SI, HI, AVH, less grandiose 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, 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, 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; 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) Thought Content (Other): less preoccupied (by being an artist), appropriate Thought Content (Aggressive): none reported Perception (Hallucinations): none reported Perception (Other): none reported Cognition (Impairment of): ability to abstract Cognition(Intelligence Est.): borderline Oriented: Awake, Alert, Oriented times three Insight: poor Judgment: Poor Psychosis: Associations, Abstract Thinking DIAGNOSES: Schizoaffective d/o - bipolar type (depressed with moderate psychosis/delu sions) Moderate Intellectual disability TBI Tardive Dyskinesia ASSESSMENT:Pt seen and states that his mood is better and that he's finding the increase in prozac beneficial. States he slept well last night. Feels he is tolerating his medications and they're beneficial. He is attending groups and finding them helpful. Continues to have mildly grandiose delusions of being an artist wanting to publish and/or sell his written material. He denies SI/HI, hallucinations, delusions. Pt feels safe here. MANAGEMENT PLAN: Continue plan Medications: prozac 30mg daily Amantadine 300 MG PO QAM [place] 6 MG PO BID [place] 1,200 MG PO QHS Seroquel 100 MG PO QHS, Trazodone 25 MG PO QHS inderal 10mg tid TIME SPENT: 30 minutes. Vital Signs Vital Signs Date Time Temp Pulse Resp B/P (MAP) Pulse Ox O2 Delivery O2 Flow Rate FiO2 09/27/18 08:31 144/69 09/27/18 06:39 98.4 59 18 09/25/18 22:54 97 Room Air Laboratory Data 24H Labs Laboratory Tests 2 09/26/18 12:50: [place] Level 0.87 Current Medications Current Medications Medications (Trade) Dose Ordered Sig/Yoselyn Route PRN Reason Start Time Stop Time Status Last Admin Dose Admin Acetaminophen (Tylenol Tab) 650 mg Q6HP PRN PO HEADACHE or DISCOMFORT 09/25/18 22:30 09/26/18 18:44 Al Hydrox/Mg Hydrox/Simethicone (Mylanta) 30 ml Q4HP PRN PO HEARTBURN/INDIGESTION 09/25/18 22:30 Amantadine HCl (Symmetrel) 100 mg QAM PO 09/26/18 09:00 09/27/18 08:28 Amantadine HCl (Symmetrel) 200 mg DAILY@1400 PO 09/26/18 14:00 09/26/18 14:07 Docusate Sodium (Colace) 200 mg BID PO 09/25/18 21:00 09/27/18 08:28 Finasteride (Proscar) 5 mg DAILY PO 09/26/18 09:00 09/27/18 08:28 Fluoxetine HCl (PROzac) 20 mg DAILY PO 09/26/18 09:00 09/26/18 11:40 DC 09/26/18 08:33 Fluoxetine HCl (PROzac) 30 mg DAILY PO 09/27/18 09:00 09/27/18 08:28 Fluticasone Propionate (Flonase 0.05% Nasal [place]) 1 SPRAY IN EACH NOSTRIL DAILY NA 09/26/18 09:00 09/27/18 08:28 Home Med (Med Rec Complete!) ASDIRECTED XX 09/25/18 23:15 09/25/18 23:15 DC Ketoconazole (Nizoral) APPLY TO FEET BID EXT 09/26/18 09:00 09/27/18 08:32 Lactic Acid (Lac-Hydrin 12% Lotion) APPLY TO FEET BID TOP 09/26/18 09:00 09/27/18 08:31 Levothyroxine Sodium (Synthroid) 88 mcg DAILY@0600 PO 09/26/18 06:00 09/27/18 06:17 [place] Carbonate ([place] Carbonate) 1,200 mg QHS PO 09/25/18 21:00 09/26/18 21:34 Losartan Potassium (Cozaar) 25 mg BID PO 09/25/18 21:00 09/27/18 08:31 Magnesium Hydroxide (Milk Of Magnesia) 30 ml DAILYPRN PRN PO CONSTIPATION 09/25/18 22:30 Naproxen (Naprosyn) 500 mg BID PRN PO PAIN 09/25/18 23:15 09/26/18 00:21 Patient Own Medication (Patient'S Own Med) [place] (DEUTETRABENAZINE) 6mg TAB CALE... BID PO 09/26/18 09:00 09/27/18 08:28 Quetiapine Fumarate (SEROquel) 100 mg QHS PO 09/25/18 21:00 09/26/18 21:34 Tamsulosin HCl (Flomax) 0.8 mg QHS PO 09/25/18 21:00 09/26/18 21:34 Trazodone HCl (Desyrel) 25 mg QHS PO 09/25/18 21:00 09/26/18 21:34 Trazodone HCl (Desyrel) 50 mg QHSP PRN PO INSOMNIA 09/25/18 22:30 Cancel Vitamin D (Vitamin D) 2,000 units DAILY PO 09/26/18 09:00 09/27/18 08:31 Allergies Coded Allergies: NUTS (Verified Allergy, Severe, 03/22/13) divalproex sodium (Verified Allergy, Unknown, 09/25/18) fluphenazine (Verified Allergy, Unknown, 09/25/18) haloperidol (Verified Allergy, Unknown, 09/25/18) thioridazine (Verified Allergy, Unknown, 09/25/18) valproic acid (Verified Allergy, Unknown, 09/25/18) STEPHANIE PAGE DO Sep 27, 2018 9:27 am
[2018-09-27 13:18] VITALS: BP 151/81
[2018-09-27] MEDS: PROPRANOLOL 10 MG TAB PO SCH ×2 (15:41→21:58)
[2018-09-27 17:28] VITALS: BP 124/60
[2018-09-27 19:35] VITALS: BP 124/60
[2018-09-27] MEDS: TAMSULOSIN 0.4 MG CAP PO SCH (21:57)
[2018-09-27] MEDS: traZODone 25MG PER 1/2 TABLET PO SCH (21:57)
[2018-09-27] MEDS: LITHIUM CARBONATE 300 MG CAP PO SCH (21:58)
[2018-09-27] MEDS: QUEtiapine FUMARATE 100 MG TAB PO SCH (21:58)
[2018-09-28] MEDS: LEVOTHYROXINE 88MCG TABLET (0.088 MG) PO SCH (05:33)
[2018-09-28 06:25] VITALS: BP 131/84
[2018-09-28] MEDS: DEUTETRABENAZINE 6 MG PO SCH ×2 (09:00→22:05)
[2018-09-28] MEDS: DOCUSATE SODIUM 100 MG CAP PO SCH ×2 (09:11→22:07)
[2018-09-28] MEDS: FLUTICASONE PROP 0.05% NASAL SPRAY 16 GM (FLONASE) SCH (09:11)
[2018-09-28] MEDS: PROPRANOLOL 10 MG TAB PO SCH ×3 (09:12→22:06)
[2018-09-28] MEDS: FINASTERIDE 5 MG TAB PO SCH (09:14)
[2018-09-28] MEDS: FLUoxetine 10 MG CAP PO SCH (09:14)
[2018-09-28] MEDS: VITAMIN D 1,000 INTERNATIONAL UNITS TABLET PO SCH (09:15)
[2018-09-28] MEDS: AMANTADINE 100 MG CAP PO SCH ×2 (09:15→13:20)
[2018-09-28] MEDS: KETOCONAZOLE 2% CREAM EXT SCH ×2 (09:16→22:09)
[2018-09-28] MEDS: LOSARTAN 25 MG TAB PO SCH ×2 (09:17→22:07)
[2018-09-28] MEDS: LACTIC ACID 12% LOTION 225 GM BTL TOP SCH ×2 (09:18→22:09)
[2018-09-28 10:41] VITALS: BP 136/85
[2018-09-28 18:00] VITALS: BP 133/84
[2018-09-28 20:42] VITALS: BP 133/84
[2018-09-28] MEDS: LITHIUM CARBONATE 300 MG CAP PO SCH (22:06)
[2018-09-28] MEDS: TAMSULOSIN 0.4 MG CAP PO SCH (22:07)
[2018-09-28] MEDS: traZODone 25MG PER 1/2 TABLET PO SCH (22:07)
[2018-09-28] MEDS: QUEtiapine FUMARATE 100 MG TAB PO SCH (22:07)
[2018-09-29] MEDS: LEVOTHYROXINE 88MCG TABLET (0.088 MG) PO SCH (05:53)
[2018-09-29 06:38] VITALS: BP 104/76
[2018-09-29] MEDS: DOCUSATE SODIUM 100 MG CAP PO SCH ×2 (09:36→21:47)
[2018-09-29] MEDS: FINASTERIDE 5 MG TAB PO SCH (09:36)
[2018-09-29] MEDS: FLUTICASONE PROP 0.05% NASAL SPRAY 16 GM (FLONASE) SCH (09:36)
[2018-09-29] MEDS: VITAMIN D 1,000 INTERNATIONAL UNITS TABLET PO SCH (09:37)
[2018-09-29] MEDS: FLUoxetine 10 MG CAP PO SCH (09:37)
[2018-09-29] MEDS: LOSARTAN 25 MG TAB PO SCH ×2 (09:37→21:48)
[2018-09-29] MEDS: PROPRANOLOL 10 MG TAB PO SCH ×3 (09:37→21:48)
[2018-09-29] MEDS: AMANTADINE 100 MG CAP PO SCH ×2 (09:38→13:00)
[2018-09-29] MEDS: DEUTETRABENAZINE 6 MG PO SCH ×2 (09:38→21:48)
[2018-09-29] MEDS: KETOCONAZOLE 2% CREAM EXT SCH ×2 (09:41→21:47)
[2018-09-29] MEDS: LACTIC ACID 12% LOTION 225 GM BTL TOP SCH ×2 (09:41→21:47)
[2018-09-29 15:53] VITALS: BP 135/80
[2018-09-29 18:00] VITALS: BP 135/80
[2018-09-29] MEDS: TAMSULOSIN 0.4 MG CAP PO SCH (21:47)
[2018-09-29] MEDS: traZODone 25MG PER 1/2 TABLET PO SCH (21:47)
[2018-09-29] MEDS: LITHIUM CARBONATE 300 MG CAP PO SCH (21:48)
[2018-09-29] MEDS: QUEtiapine FUMARATE 100 MG TAB PO SCH (21:48)
[2018-09-30] MEDS: LEVOTHYROXINE 88MCG TABLET (0.088 MG) PO SCH (06:05)
[2018-09-30 06:38] VITALS: BP 102/61
--- NOTE | 2018-09-30 07:52 | MHIPN ---
DATE: 09/28/2018 The patient today states "I am doing a little bit better". He says he is not as depressed. He slept well. He is denying suicidal thoughts. MENTAL STATUS EXAMINATION: He is alert and oriented times three. He was pleasant and cooperative and verbally spontaneous. There is no formal thought disorder noted. His mood is better. Affect full range and appropriate. He is not psychotic. He is denying suicidal/homicidal ideations today. Concentration is fair. Insight and judgment is fair. DIAGNOSIS: Schizoaffective disorder bipolar type. Moderate intellectual disability. Traumatic brain injury. Tardive dyskinesia. TREATMENT PLAN: At this point we will continue to monitor the patient for continued elevation and stabilization of his mood and continue resolution of suicidal ideations and continue to titrate his medications as indicated.
[2018-09-30] MEDS: VITAMIN D 1,000 INTERNATIONAL UNITS TABLET PO SCH (08:33)
[2018-09-30] MEDS: LACTIC ACID 12% LOTION 225 GM BTL TOP SCH ×2 (08:33→22:09)
[2018-09-30] MEDS: KETOCONAZOLE 2% CREAM EXT SCH ×2 (08:33→22:05)
[2018-09-30] MEDS: DOCUSATE SODIUM 100 MG CAP PO SCH ×2 (08:34→22:07)
[2018-09-30] MEDS: LOSARTAN 25 MG TAB PO SCH ×2 (08:34→22:08)
[2018-09-30] MEDS: AMANTADINE 100 MG CAP PO SCH ×2 (08:34→15:05)
[2018-09-30] MEDS: PROPRANOLOL 10 MG TAB PO SCH ×3 (08:34→22:06)
[2018-09-30] MEDS: FINASTERIDE 5 MG TAB PO SCH (08:34)
[2018-09-30] MEDS: DEUTETRABENAZINE 6 MG PO SCH ×2 (08:34→22:01)
[2018-09-30] MEDS: FLUTICASONE PROP 0.05% NASAL SPRAY 16 GM (FLONASE) SCH (08:34)
[2018-09-30] MEDS: FLUoxetine 10 MG CAP PO SCH (08:34)
--- NOTE | 2018-09-30 09:16 | MHIPNPDOC ---
[facility] Progress Note Progress Note DATE OF SERVICE: 09/30/18 HISTORY:Patient is a 48 -year-old , male, with a history of schizoaffective d/o, intellectual disability, TBI, previous admits [facility], history 2 prior SA, currently residing at [facility] who presented to ED after he cut his wrist with a plastic bottle as a SA stating "I wanted to then I changed my mind" and stopped secondary to depression and SI triggered by an inability to get a job in the last 3 years per ED. 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 He stated in the ED his "talent is being waisted." He endorsed depression, irritability, poor concentration, insomnia, increased appetite and 30lb wt gain in the ED. He denies SI/HI, hallucinations in the ED. Pt is a poor historian so history gathered from previous chart review. Pt seen and states he's here b/c he cut his right wrist (superficial) due to feelings depressed b/c "I try to use words and I'm a very talented paula and it get discouraging." States he feels depressed today but denies SI. 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 He is preoccupied and delusional slightly regarding being an "artist." He is a very poor historian. He states his medications are "ok." Agreeable to increasing prozac for depression. States TD movements are "OK" today and do appeared to lessen when he's sitting quietly. Denies SI/HI, hallucinations. Feels safe here. VITAL SIGNS: See below. NEW TEST RESULTS: [place] Level 0.87 CURRENT MEDICATIONS: See below. MENTAL STATUS EXAMINATION: General Appearance: unkempt, slightly malodorous and asked to shower this am, ds/not appear stated age (older), hospital scrubs/clothing, other (very superficial cut on right wrist) Build: overweight Demeanor: other (improved akathisia predominant when walking in then lessened with sitting in chair calmly (torso mostly and face)) Eye Contact: fair Activity: other (akathisia predominant when walking in then lessened with sitting in chair calmly (torso mostly and face)) Behavior: cooperative, akathisia, tardive dyskinesia Speech: clear, non-spontaneous, other (limited to short responses mostly yes/no) Mood: less depressed Mood "good" Affect: euthymic, flat, congruent Thought Process: concrete, associative, less depressed Thought Content (Delusions): denies SI, HI, AVH, delusions Thought Content (Other): appropriate Thought Content (Aggressive): none reported Perception (Hallucinations): none reported Perception (Other): none reported Cognition (Impairment of): ability to abstract Cognition(Intelligence Est.): borderline Oriented: Awake, Alert, Oriented times three Insight: improving Judgment: improving Psychosis: none reported DIAGNOSES: Schizoaffective d/o - bipolar type (depressed with moderate psychosis/delusi ons) Moderate Intellectual disability TBI Tardive Dyskinesia ASSESSMENT:Pt seen and states that his mood is "good" and that he's finding his medication beneficial for his mood. States he slept well last night. Feels he is tolerating his medications and they're beneficial. He is attending groups and finding them helpful. He is social on the milieu. Requested to shower today as slightly malodorous. 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 He denies SI/HI, hallucinations, delusions. Pt feels safe here. MANAGEMENT PLAN: Continue plan. D/c Sunday Medications: prozac 30mg daily Amantadine 300 MG PO QAM [place] 6 MG PO BID [place] 1,200 MG PO QHS Seroquel 100 MG PO QHS, Trazodone 25 MG PO QHS inderal 10mg tid TIME SPENT: 30 minutes. Vital Signs Vital Signs Date Time Temp Pulse Resp B/P (MAP) Pulse Ox O2 Delivery O2 Flow Rate FiO2 09/30/18 08:34 58 102/61 09/30/18 06:38 98.3 12 09/29/18 15:53 Room Air 09/29/18 15:53 97 Current Medications Current Medications Medications (Trade) Dose Ordered Sig/Yoselyn Route PRN Reason Start Time Stop Time Status Last Admin Dose Admin Acetaminophen (Tylenol Tab) 650 mg Q6HP PRN PO HEADACHE or DISCOMFORT 09/25/18 22:30 09/26/18 18:44 Al Hydrox/Mg Hydrox/Simethicone (Mylanta) 30 ml Q4HP PRN PO HEARTBURN/INDIGESTION 09/25/18 22:30 Amantadine HCl (Symmetrel) 100 mg QAM PO 09/26/18 09:00 09/30/18 08:34 Amantadine HCl (Symmetrel) 200 mg DAILY@1400 PO 09/26/18 14:00 09/29/18 13:00 Docusate Sodium (Colace) 200 mg BID PO 09/25/18 21:00 09/30/18 08:34 Finasteride (Proscar) 5 mg DAILY PO 09/26/18 09:00 09/30/18 08:34 Fluoxetine HCl (PROzac) 20 mg DAILY PO 09/26/18 09:00 09/26/18 11:40 DC 09/26/18 08:33 Fluoxetine HCl (PROzac) 30 mg DAILY PO 09/27/18 09:00 09/30/18 08:34 Fluticasone Propionate (Flonase 0.05% Nasal [place]) 1 SPRAY IN EACH NOSTRIL DAILY NA 09/26/18 09:00 09/30/18 08:34 Home Med (Med Rec Complete!) ASDIRECTED XX 09/25/18 23:15 09/25/18 23:15 DC Ketoconazole (Nizoral) APPLY TO FEET BID EXT 09/26/18 09:00 09/30/18 08:33 Lactic Acid (Lac-Hydrin 12% Lotion) APPLY TO FEET BID TOP 09/26/18 09:00 09/30/18 08:33 Levothyroxine Sodium (Synthroid) 88 mcg DAILY@0600 PO 09/26/18 06:00 09/30/18 06:05 [place] Carbonate ([place] Carbonate) 1,200 mg QHS PO 09/25/18 21:00 09/29/18 21:48 Losartan Potassium (Cozaar) 25 mg BID PO 09/25/18 21:00 09/30/18 08:34 Magnesium Hydroxide (Milk Of Magnesia) 30 ml DAILYPRN PRN PO CONSTIPATION 09/25/18 22:30 Naproxen (Naprosyn) 500 mg BID PRN PO PAIN 09/25/18 23:15 09/26/18 00:21 Patient Own Medication (Patient'S Own Med) [place] (DEUTETRABENAZINE) 6mg TAB CALE... BID PO 09/26/18 09:00 09/30/18 08:34 Propranolol HCl (Inderal) 10 mg TID PO 09/27/18 16:00 09/30/18 08:34 Quetiapine Fumarate (SEROquel) 100 mg QHS PO 09/25/18 21:00 09/29/18 21:48 Tamsulosin HCl (Flomax) 0.8 mg QHS PO 09/25/18 21:00 09/29/18 21:47 Trazodone HCl (Desyrel) 25 mg QHS PO 09/25/18 21:00 09/29/18 21:47 Trazodone HCl (Desyrel) 50 mg QHSP PRN PO INSOMNIA 09/25/18 22:30 Cancel Vitamin D (Vitamin D) 2,000 units DAILY PO 09/26/18 09:00 09/30/18 08:33 Allergies Coded Allergies: NUTS (Verified Allergy, Severe, 03/22/13) divalproex sodium (Verified Allergy, Unknown, 09/25/18) fluphenazine (Verified Allergy, Unknown, 09/25/18) haloperidol (Verified Allergy, Unknown, 09/25/18) thioridazine (Verified Allergy, Unknown, 09/25/18) valproic acid (Verified Allergy, Unknown, 09/25/18) STEPHANIE PAGE DO Sep 30, 2018 9:16 am
[2018-09-30 18:00] VITALS: BP 130/86
[2018-09-30] MEDS: QUEtiapine FUMARATE 100 MG TAB PO SCH (22:07)
[2018-09-30] MEDS: LITHIUM CARBONATE 300 MG CAP PO SCH (22:07)
[2018-09-30] MEDS: TAMSULOSIN 0.4 MG CAP PO SCH (22:07)
[2018-09-30] MEDS: traZODone 25MG PER 1/2 TABLET PO SCH (22:08)
[2018-10-01] MEDS: LEVOTHYROXINE 88MCG TABLET (0.088 MG) PO SCH (05:56)
[2018-10-01 06:47] VITALS: BP 112/63
[2018-10-01] MEDS: DEUTETRABENAZINE 6 MG PO SCH ×2 (08:30→21:51)
[2018-10-01] MEDS: FINASTERIDE 5 MG TAB PO SCH (08:31)
[2018-10-01] MEDS: FLUTICASONE PROP 0.05% NASAL SPRAY 16 GM (FLONASE) SCH (08:32)
[2018-10-01] MEDS: VITAMIN D 1,000 INTERNATIONAL UNITS TABLET PO SCH (08:32)
[2018-10-01] MEDS: DOCUSATE SODIUM 100 MG CAP PO SCH ×2 (08:32→21:49)
[2018-10-01] MEDS: PROPRANOLOL 10 MG TAB PO SCH ×3 (08:33→21:55)
[2018-10-01] MEDS: FLUoxetine 10 MG CAP PO SCH (08:33)
[2018-10-01] MEDS: LOSARTAN 25 MG TAB PO SCH ×2 (08:34→21:52)
[2018-10-01] MEDS: KETOCONAZOLE 2% CREAM EXT SCH ×2 (08:34→21:48)
[2018-10-01] MEDS: LACTIC ACID 12% LOTION 225 GM BTL TOP SCH ×2 (08:34→21:47)
[2018-10-01] MEDS: AMANTADINE 100 MG CAP PO SCH ×2 (08:35→14:38)
--- NOTE | 2018-10-01 09:12 | MHIPNPDOC ---
[facility] Progress Note Progress Note DATE OF SERVICE: 10/01/18 HISTORY: Patient is a 48 -year-old , male, with a history of schizoaffective d/o, intellectual disability, TBI, previous admits [facility], history 2 prior SA, currently residing at [facility] who presented to ED after he cut his wrist with a plastic bottle as a SA stating "I wanted to then I changed my mind" and stopped secondary to depression and SI triggered by an inability to get a job in the last 3 years per ED. 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 He stated in the ED his "talent is being waisted." He endorsed depression, irritability, poor concentration, insomnia, increased appetite and 30lb wt gain in the ED. He denies SI/HI, hallucinations in the ED. Pt is a poor historian so history gathered from previous chart review. Pt seen and states he's here b/c he cut his right wrist (superficial) due to feelings depressed b/c "I try to use words and I'm a very talented paula and it get discouraging." States he feels depressed today but denies SI. 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 He is preoccupied and delusional slightly regarding being an "artist." He is a very poor historian. He states his medications are "ok." Agreeable to increasing prozac for depression. States TD movements are "OK" today and do appeared to lessen when he's sitting quietly. Denies SI/HI, hallucinations. Feels safe here. VITAL SIGNS: See below. NEW TEST RESULTS: [place] Level 0.87 CURRENT MEDICATIONS: See below. MENTAL STATUS EXAMINATION: General Appearance: clean, ds/not appear stated age (older), hospital scrubs/clothing, other (very superficial cut on right wrist) Build: overweight Demeanor: other (improved akathisia predominant when walking in then lessened with sitting in chair calmly (torso mostly and face)) Eye Contact: fair Activity: other (akathisia predominant when walking in then lessened with sitting in chair calmly (torso mostly and face)) Behavior: cooperative, akathisia, tardive dyskinesia Speech: clear, non-spontaneous, other (limited to short responses mostly ye s/no) Mood: less depressed Mood "good" Affect: euthymic, flat, congruent Thought Process: concrete, associative, less depressed Thought Content (Delusions): denies SI, HI, AVH, delusions Thought Content (Other): appropriate Thought Content (Aggressive): none reported Perception (Hallucinations): none reported Perception (Other): none reported Cognition (Impairment of): ability to abstract Cognition(Intelligence Est.): borderline Oriented: Awake, Alert, Oriented times three Insight: improving Judgment: improving Psychosis: none reported DIAGNOSES: Schizoaffective d/o - bipolar type (depressed with moderate psychosis/delusions) Moderate Intellectual disability TBI Tardive Dyskinesia ASSESSMENT:Pt seen and states that his mood is "good" and that he's finding his medication beneficial for his mood. States he slept well last night. Feels he is tolerating his medications and they're beneficial. He is attending groups and finding them helpful. He is social on the milieu. No longer malodorous as shower yesterday after asked to. 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 He denies SI/HI, hallucinations, delusions. Pt feels safe here. MANAGEMENT PLAN: Continue plan. D/c Sunday Medications: prozac 30mg daily Amantadine 300 MG PO QAM [place] 6 MG PO BID [place] 1,200 MG PO QHS Seroquel 100 MG PO QHS, Trazodone 25 MG PO QHS inderal 10mg tid TIME SPENT: 30 minutes. Vital Signs Vital Signs Date Time Temp Pulse Resp B/P (MAP) Pulse Ox O2 Delivery O2 Flow Rate FiO2 10/01/18 08:33 75 147/96 10/01/18 06:47 97.9 14 09/29/18 15:53 Room Air 09/29/18 15:53 97 Current Medications Current Medications Medications (Trade) Dose Ordered Sig/Yoselyn Route PRN Reason Start Time Stop Time Status Last Admin Dose Admin Acetaminophen (Tylenol Tab) 650 mg Q6HP PRN PO HEADACHE or DISCOMFORT 09/25/18 22:30 09/26/18 18:44 Al Hydrox/Mg Hydrox/Simethicone (Mylanta) 30 ml Q4HP PRN PO HEARTBURN/INDIGESTION 09/25/18 22:30 Amantadine HCl (Symmetrel) 100 mg QAM PO 09/26/18 09:00 10/01/18 08:35 Amantadine HCl (Symmetrel) 200 mg DAILY@1400 PO 09/26/18 14:00 09/30/18 15:05 Docusate Sodium (Colace) 200 mg BID PO 09/25/18 21:00 10/01/18 08:32 Finasteride (Proscar) 5 mg DAILY PO 09/26/18 09:00 10/01/18 08:31 Fluoxetine HCl (PROzac) 20 mg DAILY PO 09/26/18 09:00 09/26/18 11:40 DC 09/26/18 08:33 Fluoxetine HCl (PROzac) 30 mg DAILY PO 09/27/18 09:00 10/01/18 08:33 Fluticasone Propionate (Flonase 0.05% Nasal [place]) 1 SPRAY IN EACH NOSTRIL DAILY NA 09/26/18 09:00 10/01/18 08:32 Home Med (Med Rec Complete!) ASDIRECTED XX 09/25/18 23:15 09/25/18 23:15 DC Ketoconazole (Nizoral) APPLY TO FEET BID EXT 09/26/18 09:00 10/01/18 08:34 Lactic Acid (Lac-Hydrin 12% Lotion) APPLY TO FEET BID TOP 09/26/18 09:00 10/01/18 08:34 Levothyroxine Sodium (Synthroid) 88 mcg DAILY@0600 PO 09/26/18 06:00 10/01/18 05:56 [place] Carbonate ([place] Carbonate) 1,200 mg QHS PO 09/25/18 21:00 09/30/18 22:07 Losartan Potassium (Cozaar) 25 mg BID PO 09/25/18 21:00 10/01/18 08:34 Magnesium Hydroxide (Milk Of Magnesia) 30 ml DAILYPRN PRN PO CONSTIPATION 09/25/18 22:30 Naproxen (Naprosyn) 500 mg BID PRN PO PAIN 09/25/18 23:15 09/26/18 00:21 Patient Own Medication (Patient'S Own Med) [place] (DEUTETRABENAZINE) 6mg TAB CALE... BID PO 09/26/18 09:00 10/01/18 08:30 Propranolol HCl (Inderal) 10 mg TID PO 09/27/18 16:00 10/01/18 08:33 Quetiapine Fumarate (SEROquel) 100 mg QHS PO 09/25/18 21:00 09/30/18 22:07 Tamsulosin HCl (Flomax) 0.8 mg QHS PO 09/25/18 21:00 09/30/18 22:07 Trazodone HCl (Desyrel) 25 mg QHS PO 09/25/18 21:00 09/30/18 22:08 Trazodone HCl (Desyrel) 50 mg QHSP PRN PO INSOMNIA 09/25/18 22:30 Cancel Vitamin D (Vitamin D) 2,000 units DAILY PO 09/26/18 09:00 10/01/18 08:32 Allergies Coded Allergies: NUTS (Verified Allergy, Severe, 03/22/13) divalproex sodium (Verified Allergy, Unknown, 09/25/18) fluphenazine (Verified Allergy, Unknown, 09/25/18) haloperidol (Verified Allergy, Unknown, 09/25/18) thioridazine (Verified Allergy, Unknown, 09/25/18) valproic acid (Verified Allergy, Unknown, 09/25/18) STEPHANIE PAGE DO Oct 01, 2018 9:12 am
[2018-10-01] MEDS: NAPROXEN 250 MG TAB PO PRN (09:21)
[2018-10-01 18:01] VITALS: BP 156/91
[2018-10-01] MEDS: traZODone 25MG PER 1/2 TABLET PO SCH (21:48)
[2018-10-01] MEDS: TAMSULOSIN 0.4 MG CAP PO SCH (21:48)
[2018-10-01] MEDS: LITHIUM CARBONATE 300 MG CAP PO SCH (21:49)
[2018-10-01] MEDS: QUEtiapine FUMARATE 100 MG TAB PO SCH (21:49)
[2018-10-02] MEDS: LEVOTHYROXINE 88MCG TABLET (0.088 MG) PO SCH (06:12)
[2018-10-02 06:37] VITALS: BP 105/68
[2018-10-02] MEDS ORDERED: AMAN100T PO ×2 (08:41)
[2018-10-02] MEDS ORDERED: QUET1TAB8 PO (08:41)
[2018-10-02] MEDS ORDERED: TRAZ-252 PO (08:41)
[2018-10-02] MEDS ORDERED: FLUO10CA8 PO (08:41)
[2018-10-02] MEDS ORDERED: PROP10TA56 PO (08:41)
[2018-10-02] MEDS ORDERED: AUST6TAB PO (08:41)
[2018-10-02] MEDS ORDERED: LITH300T2 PO (08:41)
--- NOTE | 2018-10-02 08:42 | MHDSPDOC ---
[facility] Discharge Summary Discharge Summary DATE OF ADMISSION: Sep 25, 2018 at 10:28 pm DATE OF DISCHARGE: October 02, 2018 DISCHARGE DIAGNOSES: Schizoaffective d/o - bipolar type (depressed with moderate psychosis/delu sions) Moderate Intellectual disability TBI Tardive Dyskinesia REASON FOR ADMISSION: Patient is a 48 -year-old , male, with a history of schizoaffective d/o, intellectual disability, TBI, previous admits [facility], history 2 prior SA, currently residing at [facility] who presented to ED after he cut his wrist with a plastic bottle as a SA stating "I wanted to then I changed my mind" and stopped secondary to depression and SI triggered by an inability to get a job in the last 3 years per ED. 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 He stated in the ED his "talent is being waisted." He endorsed depression, irritability, poor concentration, insomnia, increased appetite and 30lb wt gain in the ED. He denies SI/HI, hallucinations in the ED. Pt is a poor historian so history gathered from previous chart review. Pt seen and states he's here b/c he cut his right wrist (superficial) due to feelings depressed b/c "I try to use words and I'm a very talented paula and it get discouraging." States he feels depressed today but denies SI. 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 He is preoccupied and delusional slightly regarding being an "artist." He is a very poor historian. He states his medications are "ok." Agreeable to increasing prozac for depression. States TD movements are "OK" today and do appeared to lessen when he's sitting quietly. Denies SI/HI, hallucinations. Feels safe here. CONSULTANTS INVOLVED: none TREATMENT AND PROGRESS ON THE UNIT : Pt was admitted to [facility], seen for psychiatric assessment and restarted on his outpatient medication and his outpatient prozac was increased to 300mg daily for depression which he found beneficial. He was started on inderal 10mg tid for akathisia associated with TD with some improvement in symptoms. Pt found his medications beneficial and tolerated them well. He attended groups daily during his stay. His symptoms improved with treatment. On day of discharge he denied depression, anxiety, insomnia, SI/HI, hallucinations, delusions. He was discharged home after Shelly meeting back to [facility] with follow-up at [facility]. He felt safe for discharge. DISCHARGE ASSESSMENT: Pt seen and states that his mood is "good" and that he's finding his medication beneficial for his mood. States he slept well last night. Feels he is tolerating his medications and they're beneficial. He is attending groups and finding them helpful. He is social on the milieu. 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 He denies depression, anxiety, insomnia, SI/HI, hallucinations, delusions. Pt feels safe to be discharged back to [facility] residential today. MENTAL STATUS EXAMINATION ON DISCHARGE: General Appearance: clean, ds/not appear stated age (older), hospital scrubs/clothing, other (very superficial cut on right wrist) Build: overweight Demeanor: other (improved akathisia predominant when walking in then lessened with sitting in chair calmly (torso mostly and face)) Eye Contact: fair Activity: other (akathisia predominant when walking in then lessened with sitting in chair calmly (torso mostly and face)) Behavior: cooperative, akathisia, tardive dyskinesia Speech: clear, non-spontaneous, other (limited to short responses mostly yes/no) Mood: euthymic, flat, pleasant Mood "good" Affect: euthymic, flat, congruent Thought Process: concrete Thought Content (Delusions): denies SI, HI, AVH, delusions Thought Content (Other): appropriate Thought Content (Aggressive): none reported Perception (Hallucinations): none reported Perception (Other): none reported Cognition (Impairment of): ability to abstract Cognition(Intelligence Est.): borderline Oriented: Awake, Alert, Oriented times three Insight: limited Judgment: limited Psychosis: none reported MEDICATIONS ON DISCHARGE: prozac 30mg daily Amantadine 300 MG PO QAM [place] 6 MG PO BID [place] 1,200 MG PO QHS Seroquel 100 MG PO QHS, Trazodone 25 MG PO QHS inderal 10mg tid PLAN/FOLLOWUP ARRANGEMENTS: D/c back to [facility] with follow-up at [facility]. The amount of time spent in the coordination of care for this patient was approximately 30 minutes. Vital Signs/I&Os Vital Signs Date Time Temp Pulse Resp B/P (MAP) Pulse Ox O2 Delivery O2 Flow Rate FiO2 10/02/18 06:37 98.6 52 18 105/68 (80) 09/29/18 15:53 Room Air 09/29/18 15:53 97 Medications Scheduled Amantadine HCl (Amantadine) 100 Mg Tablet, 100 MG PO QAM, (Reported) Amantadine HCl (Amantadine) 100 Mg Tablet, 200 MG PO DAILY, (Reported) 1400 Ammonium Lactate (Ammonium Lactate) 12 % Cre, 1 DOSE TOP BID, (Reported) APPLY TO FEET Cholecalciferol (Vitamin D3) (Vitamin D3) 2,000 Unit Tab, 2,000 UNIT PO DAILY, (Reported) Deutetrabenazine (Austedo) 6 Mg Tablet, 6 MG PO BID, (Reported) Docusate Sodium (Colace) 100 Mg Cap, 200 MG PO BID, (Reported) Finasteride (Finasteride) 5 Mg Tab, 5 MG PO DAILY, (Reported) Fluoxetine Hcl (Fluoxetine HCl) 20 Mg Cap, 20 MG PO DAILY, (Reported) Fluticasone Propionate (Flonase Allergy Relief) 50 Mcg/Act Spr, 1 SPRAY NA DAILY, (Reported) Ketoconazole (Ketoconazole) 15 Gm Cream..g., 1 DOSE EXT BID, (Reported) APPLY TO FEET Levothyroxine Sodium (Synthroid) 88 Mcg Tab, 88 MCG PO DAILY, (Reported) [place] Carbonate ([place] Carbonate) 300 Mg Tab, 1,200 MG PO QHS, (Reported) Losartan Potassium (Losartan Potassium) 50 Mg Tablet, 25 MG PO BID, (Reported) Polyethylene Glycol 3350 (Miralax) 17 Gm Powd.pack, 8 GM PO QHS, (Reported) IN 8 OZ OF LIQUID Propranolol HCl (Propranolol HCl) 10 Mg Tablet, 10 MG PO TID, (Reported) Quetiapine Fumarate (Quetiapine Fumarate) 100 Mg Tab, 100 MG PO QHS, (Reported) Tamsulosin HCl (Flomax) 0.4 Mg Cap, 0.8 MG PO QHS, (Reported) WITH FOOD OR MILK Trazodone HCl (Trazodone HCl) 50 Mg Tab, 25 MG PO QHS, (Reported) Scheduled PRN Acetaminophen (Tylenol) 325 Mg Tablet, 650 MG PO Q4H PRN for PAIN / FEVER, (Reported) Naproxen (Naproxen) 500 Mg Tab, 500 MG PO BID PRN for PAIN, (Reported) Allergies Coded Allergies: NUTS (Verified Allergy, Severe, 03/22/13) divalproex sodium (Verified Allergy, Unknown, 09/25/18) fluphenazine (Verified Allergy, Unknown, 09/25/18) haloperidol (Verified Allergy, Unknown, 09/25/18) thioridazine (Verified Allergy, Unknown, 09/25/18) valproic acid (Verified Allergy, Unknown, 09/25/18) STEPHANIE PAGE DO Oct 02, 2018 8:42 am
[2018-10-02] MEDS: DEUTETRABENAZINE 6 MG PO SCH (08:45)
[2018-10-02] MEDS: KETOCONAZOLE 2% CREAM EXT SCH (08:46)
[2018-10-02] MEDS: FLUTICASONE PROP 0.05% NASAL SPRAY 16 GM (FLONASE) SCH (08:47)
[2018-10-02] MEDS: DOCUSATE SODIUM 100 MG CAP PO SCH (08:47)
[2018-10-02] MEDS: VITAMIN D 1,000 INTERNATIONAL UNITS TABLET PO SCH (08:47)
[2018-10-02] MEDS: FLUoxetine 10 MG CAP PO SCH (08:47)
[2018-10-02] MEDS: PROPRANOLOL 10 MG TAB PO SCH (08:48)
[2018-10-02 08:49] VITALS: BP 105/68
[2018-10-02] MEDS: LOSARTAN 25 MG TAB PO SCH (08:49)
[2018-10-02] MEDS: AMANTADINE 100 MG CAP PO SCH (08:49)
[2018-10-02] MEDS: FINASTERIDE 5 MG TAB PO SCH (08:49)
[2018-10-02] MEDS: LACTIC ACID 12% LOTION 225 GM BTL TOP SCH (08:50)
== END 2018-10-02 11:45 | disposition home or self-care (01) | DRG 750 ==
LOC: M ED 18:38 → M ED INP 22:28 → M PSY 23:24
PROVIDERS: ADMIT Psychiatry & Neurology Psychiatry; ATTEND Psychiatry & Neurology Psychiatry
DX: F25.0 Schizoaffective disorder, bipolar type (principal); G25.71 Drug induced akathisia; I10 Essential (primary) hypertension; F71 Moderate intellectual disabilities; M47.812 Spondylosis without myelopathy or radiculopathy, cervical region; E03.9 Hypothyroidism, unspecified; B18.2 Chronic viral hepatitis C; G24.01 Drug induced subacute dyskinesia; E66.9 Obesity, unspecified; G25.81 Restless legs syndrome; N40.0 Benign prostatic hyperplasia without lower urinary tract symptoms; M50.30 Other cervical disc degeneration, unspecified cervical region; J30.9 Allergic rhinitis, unspecified; E55.9 Vitamin D deficiency, unspecified; Z87.820 Personal history of traumatic brain injury; Z81.8 Family history of other mental and behavioral disorders; Z91.5 Personal history of self-harm; Z79.899 Other long term (current) drug therapy; Z91.018 Allergy to other foods; Z88.8 Allergy status to other drugs, medicaments and biological substances; L29.8 Other pruritus; W57.XXXA Bitten or stung by nonvenomous insect and other nonvenomous arthropods, initial encounter; S60.861A Insect bite (nonvenomous) of right wrist, initial encounter; Y92.199 Unspecified place in other specified residential institution as the place of occurrence of the external cause; Z68.38 Body mass index [BMI] 38.0-38.9, adult

== ENCOUNTER → 2018-10-07 | Outpatient (REF) | payer OTHER ==
[~2018-10-07] MED LIST changes: +ACET-907 PO; +AMAN100T PO; +AUST6TAB PO; +FLUO10CA8 PO; +KETO2CR EXT; +KETO2CR TOP; +LOSA25TA14 PO; +LOSA50TA88; +LOSA50TA88 PO; +MIRA1POW3 PO; +PROP10TA56 PO
[2018-10-07 14:02] LABS: ALBUMIN 3.8 GM/DL (3.2-5.2); ALT/SGPT 53 U/L (12-78); BILIRUBIN,TOTAL 0.4 MG/DL (0.2-1.0); BLOOD UREA NITROGEN 15 MG/DL (7-18); CALCIUM LEVEL 8.9 MG/DL (8.5-10.1); CARBON DIOXIDE LEVEL 30 MEQ/L (21-32); CHLORIDE LEVEL 107 MEQ/L (98-107); CREATININE FOR GFR 1.12 MG/DL (0.70-1.30); GLOMERULAR FILTRATION RATE > 60.0 (>60); GLUCOSE, FASTING 86 MG/DL (70-100); LITHIUM LEVEL 0.71 MEQ/L (0.60-1.20); POTASSIUM SERUM 4.4 MEQ/L (3.5-5.1); SODIUM LEVEL 140 MEQ/L (136-145); TOTAL PROTEIN 6.9 GM/DL (6.4-8.2)
== END ==
LOC: M SFHCPLAZ 10:53
PROVIDERS: ATTEND Physician Assistant Medical
DX: F25.1 Schizoaffective disorder, depressive type (principal); F31.9 Bipolar disorder, unspecified

== ENCOUNTER → 2018-12-10 | Outpatient (CLI) | payer OTHER ==
[2018-12-10 10:00] LABS: ALBUMIN 3.9 GM/DL (3.2-5.2); ALT/SGPT 69 U/L (12-78); BILIRUBIN,TOTAL 0.7 MG/DL (0.2-1.0); BLOOD UREA NITROGEN 17 MG/DL (7-18); CALCIUM LEVEL 9.4 MG/DL (8.5-10.1); CARBON DIOXIDE LEVEL 27 MEQ/L (21-32); CHLORIDE LEVEL 105 MEQ/L (98-107); CREATININE FOR GFR 1.11 MG/DL (0.70-1.30); GLOMERULAR FILTRATION RATE > 60.0 (>60); GLUCOSE, FASTING 84 MG/DL (70-100); POTASSIUM SERUM 4.3 MEQ/L (3.5-5.1); SODIUM LEVEL 140 MEQ/L (136-145); TOTAL PROTEIN 7.6 GM/DL (6.4-8.2)
== END ==
LOC: M LAB 08:32
PROVIDERS: ATTEND Nurse Practitioner Psychiatric/Mental Health
DX: Z51.81 Encounter for therapeutic drug level monitoring (principal)

== ENCOUNTER → 2018-12-23 | Outpatient (REF) | payer OTHER ==
[2018-12-23 16:45] LABS: FREE T4 0.67 NG/DL (0.76-1.46); THYROID STIMULATING HORMONE 2.14 uIU/ML (0.358-3.740)
== END ==
LOC: M SFHCPLAZ 14:17
PROVIDERS: ATTEND Physician Assistant Medical
DX: E03.9 Hypothyroidism, unspecified (principal); R73.01 Impaired fasting glucose

== ENCOUNTER → 2019-04-24 | Outpatient (CLI) | payer OTHER ==
[~2019-04-24] MED LIST changes: +AUST9TAB PO; -FLON1SPR; +FLON1SPR NARES; +FLUO10CA15 PO; -FLUO10CA8 PO; -FLUO20CA19 PO; +FLUO20CA20 PO; +FLUO20CA22 PO; -FLUO20CA8 PO; +QUET100T2 PO; -QUET1TAB8 PO; +ROPI1TAB3 PO; +SYNT100T PO; -TRAZ-163 PO; +TRAZ-257 PO
== END ==
LOC: M LAB 08:51
PROVIDERS: ATTEND Nurse Practitioner Psychiatric/Mental Health
DX: E55.9 Vitamin D deficiency, unspecified (principal)

== ENCOUNTER → 2019-04-28 | Outpatient (CLI) | payer OTHER ==
[2019-04-28 18:35] LABS: BASO # 0.1 10^3/uL (0.0-0.2); BASO % 0.6 % (0.0-1.0); EOS # 0.6 10^3/uL (0.0-0.5); EOS % 6.9 % (0.0-3.0); HEMATOCRIT 44.9 % (42.0-52.0); HEMOGLOBIN 15.3 g/dl (13.5-17.5); LYMPH # 3.1 10^3/uL (1.5-5.0); LYMPH % 32.9 % (24.0-44.0); MEAN CORPUSCULAR HEMOGLOBIN 32.8 pg (27.0-33.0); MEAN CORPUSCULAR HGB CONC 34.1 g/dl (32.0-36.5); MEAN CORPUSCULAR VOLUME 96.1 fl (80.0-96.0); MONO % 10.7 % (0.0-5.0); NEUTROPHILS # 4.5 10^3/uL (1.5-8.5); NEUTROPHILS % 48.7 % (36.0-66.0); PLATELET COUNT, AUTOMATED 190 10^3/uL (150-450); RED BLOOD COUNT 4.67 10^6/uL (4.30-6.10); WHITE BLOOD COUNT 9.3 10^3/uL (4.0-10.0)
[2019-04-28 18:39] LABS: ALT/SGPT 70 U/L (12-78); BILIRUBIN,TOTAL 0.5 MG/DL (0.2-1.0); BLOOD UREA NITROGEN 14 MG/DL (7-18); CALCIUM LEVEL 8.9 MG/DL (8.5-10.1); CARBON DIOXIDE LEVEL 31 MEQ/L (21-32); CHLORIDE LEVEL 105 MEQ/L (98-107); CREATININE FOR GFR 1.04 MG/DL (0.70-1.30); GLOMERULAR FILTRATION RATE > 60.0 (>60); GLUCOSE, FASTING 79 MG/DL (70-100); LITHIUM LEVEL 0.71 MEQ/L (0.60-1.20); POTASSIUM SERUM 4.7 MEQ/L (3.5-5.1); SODIUM LEVEL 139 MEQ/L (136-145); TOTAL PROTEIN 7.2 GM/DL (6.4-8.2)
[2019-04-28 19:33] LABS: HEMOGLOBIN A1c 4.9 %
[2019-04-29 10:02] LABS: PTH INTACT 72.3 PG/ML (18.5-88.0); TOTAL 25(OH) VITAMIN D 36.3 NG/ML (30.0-100.0)
== END ==
LOC: M PLALAB 15:10
PROVIDERS: ATTEND Family Medicine
DX: R73.01 Impaired fasting glucose (principal); E78.2 Mixed hyperlipidemia; N18.2 Chronic kidney disease, stage 2 (mild)

== ENCOUNTER 2019-08-28 23:24 | Emergency (ER) | payer OTHER ==
[~2019-08-28] VITALS: Ht 172.7 cm; Wt 118.2 kg
[2019-08-28 23:24] VITALS: BP 138/88
[2019-08-29] MEDS ORDERED: traMADol 50 MG TAB PO ONE (00:15)
== END 2019-08-29 00:24 | disposition home or self-care (01) ==
LOC: M ED 23:24
DX: R68.84 Jaw pain (principal); Z88.8 Allergy status to other drugs, medicaments and biological substances; Z91.010 Allergy to peanuts; Z95.0 Presence of cardiac pacemaker; Z90.49 Acquired absence of other specified parts of digestive tract; Z87.820 Personal history of traumatic brain injury; R25.1 Tremor, unspecified; I10 Essential (primary) hypertension; B19.20 Unspecified viral hepatitis C without hepatic coma; N40.0 Benign prostatic hyperplasia without lower urinary tract symptoms; M54.9 Dorsalgia, unspecified; Z79.899 Other long term (current) drug therapy

== ENCOUNTER → 2019-10-30 | Outpatient (CLI) | payer OTHER ==
[~2019-10-30] MED LIST changes: -FLUO10CA15 PO; +FLUO10CA16 PO; +HYDR50TA70 PO; +VITA200031 PO; +[UNRECOGNIZED DRUG - CODE] PO
[2019-10-30 12:06] LABS: BASO # 0.1 10^3/uL (0.0-0.2); BASO % 0.6 % (0.0-1.0); EOS # 0.5 10^3/uL (0.0-0.5); EOS % 6.2 % (0.0-3.0); HEMATOCRIT 45.7 % (42.0-52.0); HEMOGLOBIN 15.2 g/dl (13.5-17.5); LYMPH % 37.8 % (24.0-44.0); MEAN CORPUSCULAR HEMOGLOBIN 32.6 pg (27.0-33.0); MEAN CORPUSCULAR HGB CONC 33.3 g/dl (32.0-36.5); MEAN CORPUSCULAR VOLUME 98.1 fl (80.0-96.0); MONO # 0.6 10^3/uL (0.0-0.8); MONO % 8.2 % (0.0-5.0); NEUTROPHILS # 3.7 10^3/uL (1.5-8.5); NEUTROPHILS % 47.1 % (36.0-66.0); PLATELET COUNT, AUTOMATED 163 10^3/uL (150-450); RED BLOOD COUNT 4.66 10^6/uL (4.30-6.10); WHITE BLOOD COUNT 7.9 10^3/uL (4.0-10.0)
[2019-10-30 12:36] LABS: ALT/SGPT 65 U/L (12-78); BILIRUBIN,TOTAL 0.9 MG/DL (0.2-1.0); BLOOD UREA NITROGEN 12 MG/DL (7-18); CALCIUM LEVEL 9.1 MG/DL (8.5-10.1); CARBON DIOXIDE LEVEL 29 MEQ/L (21-32); CHLORIDE LEVEL 107 MEQ/L (98-107); CHOLESTEROL LEVEL 177 MG/DL (<200); CHOLESTEROL RISK RATIO 3.612 (<5); CREATININE FOR GFR 1.24 MG/DL (0.70-1.30); GLOMERULAR FILTRATION RATE > 60.0 (>60); GLUCOSE, FASTING 77 MG/DL (70-100); HDL CHOLESTEROL 49 MG/DL (>40); LDL CHOLESTEROL 78 MG/DL (<100); LITHIUM LEVEL 0.72 MEQ/L (0.60-1.20); NON-HDL-C 128 MG/DL; SODIUM LEVEL 143 MEQ/L (136-145); THYROID STIMULATING HORMONE 0.645 uIU/ML (0.358-3.740); TOTAL PROTEIN 6.9 GM/DL (6.4-8.2); TRIGLYCERIDES LEVEL 249 MG/DL (<150)
[2019-10-30 12:37] LABS: TOTAL 25(OH) VITAMIN D 39.8 NG/ML (30.0-100.0); VITAMIN B12 LEVEL 595 PG/ML (247-911)
[2019-10-30 12:45] LABS: HEMOGLOBIN A1c 5.1 %
== END ==
LOC: M LAB 08:23
PROVIDERS: ATTEND Nurse Practitioner Psychiatric/Mental Health
DX: F31.32 Bipolar disorder, current episode depressed, moderate (principal)

== ENCOUNTER 2019-11-09 03:48 | Emergency (ER) | payer OTHER ==
[~2019-11-09] VITALS: Ht 172.7 cm; Wt 118.2 kg
[~2019-11-09 03:48] MED LIST changes: -HYDR50TA70 PO; -VITA200031 PO; -[UNRECOGNIZED DRUG - CODE] PO
[2019-11-09] MEDS ORDERED: METAL LOCK LOOP XX ONE (05:28)
[2019-11-09 05:39] LABS: HEMATOCRIT 41.4 % (42.0-52.0); HEMOGLOBIN 14.2 g/dl (13.5-17.5); MEAN CORPUSCULAR HEMOGLOBIN 32.5 pg (27.0-33.0); MEAN CORPUSCULAR HGB CONC 34.3 g/dl (32.0-36.5); MEAN CORPUSCULAR VOLUME 94.7 fl (80.0-96.0); PLATELET COUNT, AUTOMATED 155 10^3/uL (150-450); RED BLOOD COUNT 4.37 10^6/uL (4.30-6.10); WHITE BLOOD COUNT 7.7 10^3/uL (4.0-10.0)
[2019-11-09 06:03] LABS: AMPHETAMINES LEVEL URINE NEGATIVE (NEGATIVE); BARBITURATES URINE NEGATIVE (NEGATIVE); BENZODIAZEPINES URINE NEGATIVE (NEGATIVE); CANNABINOIDS URINE NEGATIVE (NEGATIVE); COCAINE METABOLITE URINE NEGATIVE (NEGATIVE); METHADONE URINE NEGATIVE (NEGATIVE); OPIATES URINE NEGATIVE (NEGATIVE); PHENCYCLIDINE URINE NEGATIVE (NEGATIVE)
[2019-11-09 06:13] LABS: ACETAMINOPHEN LEVEL < 2.0 UG/ML (10.0-30.0); ALBUMIN 3.7 GM/DL (3.2-5.2); ALT/SGPT 64 U/L (12-78); BILIRUBIN,DIRECT 0.1 MG/DL (0.0-0.2); BILIRUBIN,TOTAL 0.4 MG/DL (0.2-1.0); BLOOD UREA NITROGEN 17 MG/DL (7-18); CALCIUM LEVEL 8.9 MG/DL (8.5-10.1); CARBON DIOXIDE LEVEL 26 MEQ/L (21-32); CHLORIDE LEVEL 107 MEQ/L (98-107); CREATININE FOR GFR 1.08 MG/DL (0.70-1.30); ETHYL ALCOHOL (ETHANOL) < 0.003 % (0.000-0.010); GLOMERULAR FILTRATION RATE > 60.0 (>60); GLUCOSE, FASTING 95 MG/DL (70-100); POTASSIUM SERUM 3.8 MEQ/L (3.5-5.1); SALICYLATE LEVEL < 1.7 MG/DL (5.0-30.0); SODIUM LEVEL 137 MEQ/L (136-145); TOTAL PROTEIN 6.8 GM/DL (6.4-8.2)
[2019-11-09] MEDS ORDERED: VITA200031 PO (08:30)
[2019-11-09] MEDS ORDERED: [UNRECOGNIZED DRUG - CODE] PO (08:30)
[2019-11-09] MEDS ORDERED: PROP10TA56 PO (09:00)
[2019-11-09] MEDS ORDERED: HYDR50TA70 PO (09:00)
[2019-11-09] MEDS ORDERED: AMANTADINE 100MG TABLET PO ONE (09:15)
[2019-11-09] MEDS ORDERED: FLUoxetine 10 MG CAP PO ONE (09:15)
[2019-11-09] MEDS ORDERED: FINASTERIDE 5 MG TAB PO ONE (09:15)
[2019-11-09] MEDS ORDERED: PROPRANOLOL 10 MG TAB PO ONE (09:15)
[2019-11-09] MEDS ORDERED: FLUTICASONE PROP 0.05% NASAL SPRAY 16 GM (FLONASE) NARES ONE (09:15)
[2019-11-09] MEDS ORDERED: LEVOTHYROXINE 100MCG TABLET (0.1MG) PO ONE (09:15)
[2019-11-09] MEDS ORDERED: LITHIUM CARBONATE 600 MG CAP PO ONE (09:15)
[2019-11-09] MEDS ORDERED: LOSARTAN 25 MG TAB PO ONE (09:15)
[2019-11-09] MEDS ORDERED: VITAMIN D (CHOLECALCIFEROL) 400 INTERNATIONAL UNITS TAB PO ONE (09:15)
[2019-11-09] MEDS ORDERED: VITAMIN D 1,000 INTERNATIONAL UNITS TABLET PO ONE (09:30)
[2019-11-09 14:41] VITALS: BP 145/88
--- NOTE | 2019-11-17 09:48 | ECGEPIP ---
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
== END 2019-11-09 14:43 ==
LOC: M ED 03:48
DX: R45.851 Suicidal ideations (principal); F79 Unspecified intellectual disabilities; F25.9 Schizoaffective disorder, unspecified; I10 Essential (primary) hypertension; Z79.899 Other long term (current) drug therapy; Z88.8 Allergy status to other drugs, medicaments and biological substances; Z91.018 Allergy to other foods
CPT/HCPCS: 80048; 80076; 80178; 80307; 84443; 85027; 87486; 87581; 87633; 87798; 93005; 99285; G0480

== ENCOUNTER → 2019-12-30 | Outpatient (CLI) | payer OTHER ==
[~2019-12-30] MED LIST changes: +HYDR50TA70 PO; +VITA200031 PO; +[UNRECOGNIZED DRUG - CODE] PO
[2019-12-30 09:42] LABS: BASO # 0.1 10^3/uL (0.0-0.2); BASO % 0.6 % (0.0-1.0); EOS # 0.7 10^3/uL (0.0-0.5); EOS % 7.6 % (0.0-3.0); HEMOGLOBIN 15.5 g/dl (13.5-17.5); LYMPH # 3.2 10^3/uL (1.5-5.0); LYMPH % 35.7 % (24.0-44.0); MEAN CORPUSCULAR HEMOGLOBIN 32.3 pg (27.0-33.0); MEAN CORPUSCULAR HGB CONC 33.7 g/dl (32.0-36.5); MEAN CORPUSCULAR VOLUME 95.8 fl (80.0-96.0); MONO # 0.7 10^3/uL (0.0-0.8); MONO % 7.2 % (0.0-5.0); NEUTROPHILS # 4.4 10^3/uL (1.5-8.5); NEUTROPHILS % 48.7 % (36.0-66.0); PLATELET COUNT, AUTOMATED 186 10^3/uL (150-450)
[2019-12-30 10:17] LABS: ALT/SGPT 69 U/L (12-78); BILIRUBIN,TOTAL 0.6 MG/DL (0.2-1.0); BLOOD UREA NITROGEN 13 MG/DL (7-18); CALCIUM LEVEL 9.3 MG/DL (8.5-10.1); CARBON DIOXIDE LEVEL 29 MEQ/L (21-32); CHLORIDE LEVEL 107 MEQ/L (98-107); CHOLESTEROL LEVEL 175 MG/DL (<200); CHOLESTEROL RISK RATIO 3.301 (<5); CREATININE FOR GFR 1.29 MG/DL (0.70-1.30); FREE T4 0.73 NG/DL (0.76-1.46); GLOMERULAR FILTRATION RATE > 60.0 (>60); GLUCOSE, FASTING 83 MG/DL (70-100); HDL CHOLESTEROL 53 MG/DL (>40); LDL CHOLESTEROL 73 MG/DL (<100); NON-HDL-C 122 MG/DL; POTASSIUM SERUM 4.2 MEQ/L (3.5-5.1); SODIUM LEVEL 141 MEQ/L (136-145); TOTAL PROTEIN 7.2 GM/DL (6.4-8.2); TRIGLYCERIDES LEVEL 247 MG/DL (<150)
[2019-12-30 10:19] LABS: TOTAL 25(OH) VITAMIN D 44.6 NG/ML (30.0-100.0)
[2019-12-30 10:20] LABS: PTH INTACT 46.9 PG/ML (18.5-88.0)
== END ==
LOC: M LAB 08:58
PROVIDERS: ATTEND Family Medicine
DX: E55.9 Vitamin D deficiency, unspecified (principal); Z12.5 Encounter for screening for malignant neoplasm of prostate; E78.2 Mixed hyperlipidemia; E03.9 Hypothyroidism, unspecified; R73.01 Impaired fasting glucose

== ENCOUNTER → 2020-03-12 | Outpatient (CLI) | payer OTHER ==
--- NOTE | 2020-03-12 11:39 | REP ---
INDICATION: IMPINGEMENT SYNDROME OF LEFT SHOULDER COMPARISON: None. TECHNIQUE: Internal rotation, external rotation, and Y view. FINDINGS: Evaluation of the glenohumeral joint is somewhat obscured by overlying pacemaker. No acute fracture or dislocation. The acromioclavicular and visualized portions of the glenohumeral joints are intact. No periarticular calcifications or degenerative changes are appreciated. Sub acromial space is normal. Surrounding soft tissues are unremarkable. IMPRESSION: Essentially normal left shoulder radiographs. <Electronically signed by Rio Bates > 03/12/20 [id number]
== END ==
LOC: M RAD 11:12
PROVIDERS: ATTEND Family Medicine
DX: M75.42 Impingement syndrome of left shoulder (principal)

== ENCOUNTER → 2020-03-31 | Outpatient (CLI) | payer OTHER ==
[2020-03-31 11:07] LABS: HEMOGLOBIN A1c 4.9 %
[2020-03-31 11:22] LABS: ALT/SGPT 63 U/L (12-78); BILIRUBIN,TOTAL 0.5 MG/DL (0.2-1.0); BLOOD UREA NITROGEN 12 MG/DL (7-18); CALCIUM LEVEL 9.4 MG/DL (8.5-10.1); CARBON DIOXIDE LEVEL 27 MEQ/L (21-32); CHLORIDE LEVEL 106 MEQ/L (98-107); CREATININE FOR GFR 1.22 MG/DL (0.70-1.30); GLOMERULAR FILTRATION RATE > 60.0 (>60); GLUCOSE, FASTING 87 MG/DL (70-100); LITHIUM LEVEL 0.62 MEQ/L (0.60-1.20); POTASSIUM SERUM 4.2 MEQ/L (3.5-5.1); SODIUM LEVEL 141 MEQ/L (136-145); TOTAL PROTEIN 7.3 GM/DL (6.4-8.2)
== END ==
LOC: M LAB 09:18
PROVIDERS: ATTEND Family Medicine
DX: R73.01 Impaired fasting glucose (principal)

== ENCOUNTER → 2020-04-01 | Outpatient (REF) | payer OTHER ==
[2020-04-01 12:23] LABS: APPEARANCE, URINE CLEAR (CLEAR); BACTERIA, URINE AUTO 1+ (NEGATIVE); BILIRUBIN, URINE AUTO NEGATIVE (NEGATIVE); BLOOD, URINE BLOOD NEGATIVE (NEGATIVE); COLOR, URINE STRAW (YELLOW); GLUCOSE, URINE (UA) AUTO NEGATIVE (NEGATIVE); KETONE, URINE AUTO NEGATIVE (NEGATIVE); LEUKOCYTE ESTERASE, URINE AUTO 2+ (NEGATIVE); NITRITE, URINE AUTO NEGATIVE (NEGATIVE); PROTEIN, URINE AUTO NEGATIVE (NEGATIVE); RBC, URINE AUTO 1 /HPF (0-3); SPECIFIC GRAVITY URINE AUTO 1.006 (1.002-1.035); SQUAMOUS EPITHELIAL CELL UR AU 0 /HPF (0-6); UROBILINOGEN, URINE AUTO 0.2 mg/dL (0.0-2.0); WBC, URINE AUTO 12 /HPF (0-3)
[2020-04-01 13:39] LABS: CREATININE, URINE 67.5 MG/DL; MALB URINE SIEMENS < 5.0 MG/L; MAU/CREAT RATIO 7.4 MCG/MG (0.0-30.0)
== END ==
LOC: M LAB REF 11:52
PROVIDERS: ATTEND Family Medicine
DX: R73.01 Impaired fasting glucose (principal); F31.9 Bipolar disorder, unspecified

== ENCOUNTER → 2020-04-23 | Outpatient (CLI) | payer OTHER ==
[2020-04-23 09:23] LABS: BASO # 0.1 10^3/uL (0.0-0.2); BASO % 0.6 % (0.0-1.0); EOS # 0.7 10^3/uL (0.0-0.5); EOS % 8.6 % (0.0-3.0); HEMATOCRIT 44.6 % (42.0-52.0); HEMOGLOBIN 14.8 g/dl (13.5-17.5); LYMPH % 37.1 % (24.0-44.0); MEAN CORPUSCULAR HEMOGLOBIN 31.3 pg (27.0-33.0); MEAN CORPUSCULAR HGB CONC 33.2 g/dl (32.0-36.5); MEAN CORPUSCULAR VOLUME 94.3 fl (80.0-96.0); MONO # 0.7 10^3/uL (0.0-0.8); MONO % 8.4 % (2.0-8.0); NEUTROPHILS # 3.7 10^3/uL (1.5-8.5); NEUTROPHILS % 45.1 % (36.0-66.0); PLATELET COUNT, AUTOMATED 174 10^3/uL (150-450); RED BLOOD COUNT 4.73 10^6/uL (4.30-6.10); WHITE BLOOD COUNT 8.2 10^3/uL (4.0-10.0)
[2020-04-23 09:48] LABS: ALBUMIN 4.1 GM/DL (3.2-5.2); BILIRUBIN,TOTAL 0.6 MG/DL (0.2-1.0); CALCIUM LEVEL 9.2 MG/DL (8.5-10.1); CREATININE FOR GFR 1.36 MG/DL (0.70-1.30); GLOMERULAR FILTRATION RATE 59.3 (>60); PERCENT SATURATION 39.6 % (19.7-50.0); POTASSIUM SERUM 4.4 MEQ/L (3.5-5.1); TOTAL PROTEIN 7.3 GM/DL (6.4-8.2)
== END ==
LOC: M LAB 08:41
PROVIDERS: ATTEND Physician Assistant Medical
DX: C84.A0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, unspecified, unspecified site (principal)

== ENCOUNTER 2020-04-30 01:10 | Inpatient (IN) | payer MEDICAID, OTHER ==
[~2020-04-30] VITALS: Ht 172.7 cm; Wt 121.9 kg
[~2020-04-30 01:10] MED LIST changes: +FLON1SPR; -FLON1SPR NARES
--- OUTSIDE RECORDS SUMMARY | 2020-04-30 01:17 | CCD ---
Author Author Tate Romero Edita Organization Unknown Address [address] [address] Phone Care Team Providers Care Assembler Lay Ups Name Role Phone Edita Romero PCP Allergies, Adverse Reactions, Alerts No Data in Section Problem List Concept Problem Description Status Start Date Created Date Resolv ed Date Snomed Code F31.0 Bipolar I Disorder, Current or most recent episode hyp omanic Active 04/20/2020 Medications Rx Norm Medication Route Route Concept Start Date Stop Date Dosage Arthur quency Duration Formula Strength Dosage Form Dosage Form Code Dosage Description Medication Id Account Npid Author First Name Author Last Name Taxonomy Code Taxonomy Desc Phone Number [phone] amantadine HCl 12/27/2015 as directed 100 mg cap tasia 28061 [id number] [phone] Edita Romero [id number] Nurse Practitioner [id number] 893223 propranolol 03/27/2017 three times a day 10 mg t ablet 45171 803657 [id number] Edita Romero [id number] Nurse Practitioner [id number] 910406 lithium carbonate by mouth [id number] 09/15/2019 twice a day 300 mg capsule 25490 [id number] Karel Velez [id number] Nurse P win [phone] 093962 hydroxyzine HCl by mouth [id number] 01/27/2020 05/22/2020 once a da y 30 50 mg tablet as needed 23013 722432 [id number] Edita Romero [id number] Nurse Practitioner [phone] 702154 Seroquel by mouth [id number] 09/10/2014 05/24/2020 at bedtime 30 1 00 mg tablet 20579 [id number] Edita Romero [id number] Nurse P win [phone] 657981 trazodone by mouth [id number] 12/25/2019 06/13/2020 at bedtime 30 50 mg tablet 28233 393892 [id number] Edita Romero [id number] Nurse P win [phone] 105427 Prozac by mouth [id number] 12/30/2019 06/29/2020 every morning 30 20 mg capsule 55724 [id number] Anjali Perales [id number] P sychiatric/Mental Health [id number] Social History Social History Element Description Concept Effective Date Smoking Status Unknown if ever smoked [id number] Immunizations No Data in Section Vital Signs Encounter Date Height Ins Weight Lbs Bmi Bp Systolic Bp Diastoli c Oxygen Saturation Respiration Rate Pulse Rate Body Temp Head Circumference Heigh t Lying 04/20/2020 0.00 0.00 0.00 0 0 0.00 0 0 0.00 0.0 0.0 0 Procedures Date Concept Id Description Targeted Site Concept Targeted Site Concept Type 04/20/2020 [id number] [facility] Tele[facility] E/M Lvl 3--Est pt CPT Patient has no history of implantable de vices Encounters Encounter Start Date End Date Encounter Type Description Diagnosis Di agnosis Desc Location Author First Name Author Last Name Npid Taxonomy Cod e Taxonomy Desc Phone Number Location Addr1 Location Addr2 Location [facility] [id number] 04/20/2020 04/20/2020 [id number] [facility] Telemed E/M Lvl 3--Est p t F31.0 Bipolar Disorder, Current Episode Hypomanic [facility] Nick Edita [id number] Nurse Practitioner [phone] [address] Plan of Treatment No Data in Section Lab Results No Data in Section Instructions No Data in Section Functional Cognitive Status No Data in Section Insurance Providers Insurance Id Policy Effective Date Policy Thru Date [employer] N julio [id number] [address]
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
--- OUTSIDE RECORDS SUMMARY | 2020-04-30 01:18 | CCD | Continuity of Care Document ---
Author Author Tate RACHEL DPM Organization Unknown Address [address] [place] [address], [facility] [address] [place] [address] Phone [phone] Care Team Providers Care Inside Sales Supervisor Name Role Phone Drew Aguilera M.D.M [phone] Problems Active Problems Provider Date Onychomycosis Jorge Rachel DPM Onset: 03/22/2015 Corns and callus Jorge Rachel DPM Onset: 03/22/2015 Social History Type Date Description Comments Sex Unknown ETOH Use Denies alcohol use Tobacco Use Start: Unknown Patient has never smoked Allergies, Adverse Reactions, Alerts Active Allergies Reaction Severity Comments Date Haldol doesnt feel right 03/16/2015 Mellaril doesnt feet right 03/16/2015 Medications Active Medications SIG Qnty Indications Ordering Provide r Date Ammonium Lactate 12% Cream apply to feet daily 140gm Russell Rachel DPM 07/10/2019 Fluticasone Propionate 50mcg/Act Suspension Unknown Levothyroxine Sodium 88mcg Tablets Unknown Quetiapine Fumarate 100mg Tablets Unknown [place] Carbonate 300mg Capsules Unknown Vitamin D 50mcg (1999 Ut) Tablets Unknown Finasteride 5mg Tablets Unknown Acetaminophen 325mg Tablets Unknown Levothyroxine Sodium 100mcg Tablets Unknown Fluoxetine HCL 10mg Capsules Unknown Losartan Potassium 50mg Tablets Unknown Austedo 6mg Tablets Unknown Trazodone HCL 50mg Tablets Unknown Propranolol HCL 10mg Tablets Unknown Dok 100mg Capsules Unknown Amantadine HCL 100mg Capsules Unknown Tamsulosin HCL 0.4mg Capsules Unknown Immunizations Description No Information Available Vital Signs Date Vital Result Comment 08/11/2016 2:10pm Height 68 inches 5'8" Weight 223.00 lb BP Systolic 106 mmHg BP Diastolic 54 mmHg Heart Rate 64 /min BMI (Body Mass Index) 33.9 kg/m2 02/11/2016 2:02pm Height 68 inches 5'8" Weight 229.00 lb BP Systolic 114 mmHg BP Diastolic 58 mmHg Heart Rate 62 /min BMI (Body Mass Index) 34.8 kg/m2 Results Description No Information Available Procedures Description No Information Available Medical Devices Description No Information Available Encounters Type Date Location Provider Dx Diagnosis Office Visit 03/17/2020 1:45p [facility] Russell Rachel DPM B35.1 Tinea unguium L84 Corns and callosities Office Visit 01/07/2020 1:45p [facility] Russell Rachel DPM B35.1 Tinea unguium L84 Corns and callosities Office Visit 10/29/2019 1:15p [facility] Russell Rachel DPM B35.1 Tinea unguium L84 Corns and callosities Assessments Date Code Description Provider 03/17/2020 B35.1 Tinea ziyaduium Russell Rachel, DP 03/17/2020 L84 Corns and callosities Russell Rachel, ADRIAN 01/07/2020 B35.1 Tinea unguium Russell Rachel, ADRIAN 01/07/2020 L84 Corns and callosities Russell Rachel, MELONIE 10/29/2019 B35.1 Tinea unguium Russell Rachel, ADRIAN 10/29/2019 L84 Corns and callosities Russell Rachel DPM Plan of Treatment Future Appointment(s):* 05/26/2020 1:45 pm - Russell Rachel DPM at [facility] Functional Status Description No Information Available Mental Status Description No Information Available Referrals Description No Information Available
--- OUTSIDE RECORDS SUMMARY | 2020-04-30 01:18 | CCD ---
Author Author Nick Tate Edita Organization Unknown Address [address] [address] Phone Care Team Providers Care Civil Engineering Project Designer Name Role Phone Edita Romero PCP Allergies, Adverse Reactions, Alerts No Data in Section Problem List Concept Problem Description Status Start Date Created Date Resolv ed Date Snomed Code F31.0 Bipolar I Disorder, Current or most recent episode hyp omanic Active 03/23/2020 Medications Rx Norm Medication Route Route Concept Start Date Stop Date Dosage Arthur quency Duration Formula Strength Dosage Form Dosage Form Code Dosage Description Medication Id Account Npid Author First Name Author Last Name Taxonomy Code Taxonomy Desc Phone Number [id number] amantadine HCl 12/27/2015 as directed 100 mg cap tasia 87209 143544 [id number] Edita Romero [id number] Nurse Practitioner [phone] 808504 propranolol 03/27/2017 three times a day 10 mg t ablet 76265 680925 [id number] Edita Romero [id number] Nurse Practitioner [id number] [phone] 632024 lithium carbonate by mouth [id number] 09/15/2019 twice a day 300 mg capsule 55315 383608 [id number] Edita Romero [id number] N jime Practitioner [phone] 073412 hydroxyzine HCl by mouth [id number] 01/27/2020 03/25/2020 once a da y 30 50 mg tablet as needed 85026 815731 [id number] Edita Romero [id number] Nurse Practitioner [phone] 928582 Seroquel by mouth [id number] 09/10/2014 05/24/2020 at bedtime 30 1 00 mg tablet 80928 886341 [id number] Edita Romero [id number] Nurse Ashley walden [id number] 994967 trazodone by mouth [id number] 12/25/2019 05/24/2020 at bedtime 30 50 mg tablet 86913 187533 [id number] Edita Romero [id number] Nurse Ashley walden [phone] 085676 Prozac by mouth [id number] 12/30/2019 05/24/2020 every morning 30 20 mg capsule 31501 611532 [id number] Edita Romero [id number] N jime Practitioner [id number] Social History Social History Element Description Concept Effective Date Smoking Status Unknown if ever smoked [id number] Immunizations No Data in Section Vital Signs Encounter Date Height Ins Weight Lbs Bmi Bp Systolic Bp Diastoli c Oxygen Saturation Respiration Rate Pulse Rate Body Temp Head Circumference Heigh t Lying 03/23/2020 0.00 0.00 0.00 0 0 0.00 0 0 0.00 0.0 0.0 0 Procedures Date Concept Id Description Targeted Site Concept Targeted Site Concept Type 03/23/2020 70981 E/M Level 3 - Established Patient CPT Patient has no history of implantable de vices Encounters Encounter Start Date End Date Encounter Type Description Diagnosis Di agnosis Desc Location Author First Name Author Last Name Npid Taxonomy Cod e Taxonomy Desc Phone Number Location Addr1 Location Addr2 Location [facility] Location [facility] [place] Location [facility] [id number] 03/23/2020 03/23/2020 37035 E/M Level 3 - Established Pa tient F31.0 Bipolar Disorder, Current Episode Hypomanic [facility] Nick Kohler [phone] [id number] Nurse Practitioner [id number] [phone] [address] Plan of Treatment No Data in Section Lab Results No Data in Section Instructions No Data in Section Functional Cognitive Status No Data in Section Insurance Providers Insurance Id Policy Effective Date Policy Thru Date Company N julio [id number] 2019 [email or web address]
--- OUTSIDE RECORDS SUMMARY | 2020-04-30 01:18 | CCD ---
Author Organization Unknown Address [address] [place] [address] Phone [phone] Care Team Providers Care Embossing Press Operator Molded Goods Name Role Phone Humberto Jose Unavailable Unavailable Allergies None recorded. Medications Name Status Start Date Stop Date acetaminophen 325 mg tablet Active Not available amantadine HCl 100 mg capsule Active No t available ammonium lactate 12 % topical cream Active Not available Austedo 12 mg tablet Active Not availab le [place]edo 6 mg tablet Active Not availabl e [place] 9 mg tablet Active Not availabl e DOK 100 mg capsule Active Not available finasteride 5 mg tablet Active Not avai lable fluoxetine 10 mg capsule Active Not verito ilable fluoxetine 20 mg capsule Active Not verito ilable fluticasone propionate 50 mcg/actuation nasal spray,suspension A ctive Not available hydroxyzine HCl 50 mg tablet Active Not available levothyroxine 100 mcg tablet Active Not available lithium carbonate 300 mg capsule Active Not available losartan 50 mg tablet Active Not availa ble propranolol 10 mg tablet Active Not verito ilable quetiapine 100 mg tablet Active Not verito ilable tamsulosin 0.4 mg capsule Active Not av ailable trazodone 50 mg tablet Active Not avail able vitamin d-3 50 mcg (2000 ut) tabs Active Not available Vitamin D3 50 mcg (2,000 unit) tablet Active Not available Problems None recorded. Procedures None recorded. Results Lab Results None recorded. Past Encounters 03/02/2020 SARS-CoV-2 Vaccination Humberto Jose MD: [address] [place] [address], Ph. Social History None recorded. Vaccine List Vaccine Type COVID-19, mRNA, LNP-S, PF, 100 mcg/0.5 m L dose 03/02/20200.5 mL Plan of Care Reminders Provider Appointments None recorded. Lab None recorded. Referral None recorded. Procedures None recorded. Surgeries None recorded. Imaging None recorded. Vitals None recorded.
--- OUTSIDE RECORDS SUMMARY | 2020-04-30 01:18 | CCD ---
Author Organization Unknown Address [address] [place] [address] Phone [phone] Care Team Providers Care Apprentice Jockey Name Role Phone Humberto Jose Unavailable Unavailable [...] Results Lab Results None recorded. Past Encounters 03/30/2020 SARS-CoV-2 Vaccination LEIDA Mack: [address] [place] [address], Ph. 03/02/2020 SARS-CoV-2 Vaccination Humberto Jose MD: [address] [place] [address], Ph. Social History None recorded. Vaccine List Vaccine Type COVID-19, mRNA, LNP-S, PF, 100 mcg/0.5 m L dose 03/02/20200.5 mL Plan of Care Reminders Provider Appointments None recorded. Lab None recorded. Referral None recorded. Procedures None recorded. Surgeries None recorded. Imaging None recorded. Vitals None recorded.
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
--- OUTSIDE RECORDS SUMMARY | 2020-04-30 01:19 | CCD | Continuity of Care Document ---
Author Author Tate RACHEL DPM Organization Unknown Address [address] [place] [address], [facility] [address] [place] [address] Phone [phone] Care Team Providers Care Linemarker Name Role Phone Drew Aguilera M.D.M [phone] Problems Active Problems Provider Date Onychomycosis Jorge [...] Tablets Unknown Quetiapine Fumarate 100mg Tablets Unknown [place] Carbonate 300mg Capsules Unknown Vitamin D 50mcg [...] Date Location Provider Dx Diagnosis Office Visit 01/07/2020 1:45p [facility] Russell Rachel DPM B35.1 Tinea unguium L84 Corns and callosities Office Visit 10/29/2019 1:15p [facility] Russell Rachel DPM B35.1 Tinea unguium L84 Corns and callosities Assessments Date Code Description Provider 01/07/2020 B35.1 Tinea unguium Russell Rachel DPM 01/07/2020 L84 Corns and callosities Russell Rachel DPM 10/29/2019 B35.1 Tinea unguium Russell Rachel DPM 10/29/2019 L84 Corns and callosities Russell Rachel DPM Plan of Treatment Future Appointment(s):* 05/26/2020 1:45 pm - Russell Rachel DPM at [facility] Functional Status Description No Information Available Mental Status Description No Information Available Referrals Description No Information Available
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
--- OUTSIDE RECORDS SUMMARY | 2020-04-30 01:21 | CCD ---
Author Organization Unknown Address [address] [place] [address] Phone [phone] Care Team Providers Care Excel Developer Name Role Phone Humberto Jose Unavailable Unavailable [...] 03/02/2020 SARS-CoV-2 Vaccination Humberto Jose MD: [address] [place] [address], Ph. Social History None recorded. Vaccine List Vaccine Type COVID-19, mRNA, LNP-S, PF, 100 mcg/0.5 m L dose 03/02/20200.5 mL Plan of Care Reminders Provider Appointments None recorded. Lab None recorded. Referral None recorded. Procedures None recorded. Surgeries None recorded. Imaging None recorded. Vitals None recorded.
--- OUTSIDE RECORDS SUMMARY | 2020-04-30 01:21 | CCD ---
Author Author Nick Tate Edita Organization Unknown Address [address] [address] Phone Care Team Providers Care Jewelry Repairer Name Role Phone Edita Romero PCP Allergies, Adverse Reactions, Alerts No Data in Section Problem List Concept Problem Description Status Start Date Created Date Resolv ed Date Snomed Code F31.0 Bipolar I Disorder, Current or most recent episode hyp omanic Active 02/24/2020 Medications Rx Norm Medication Route Route Concept Start Date Stop Date Dosage Arthur quency Duration Formula Strength Dosage Form Dosage Form Code Dosage Description Medication Id Account Npid Author First Name Author Last Name Taxonomy Code Taxonomy Desc Phone Number [id number] amantadine HCl 12/27/2015 as directed 100 mg cap tasia 01886 409189 [phone] Edita Romero [id number] Nurse Practitioner [id number] [phone] 232624 propranolol 03/27/2017 three times a day 10 mg t ablet 81931 715352 [id number] Edita Romero [id number] Nurse Practitioner [id number] [phone] 986709 lithium carbonate by mouth [id number] 09/15/2019 twice a day 300 mg capsule 41735 858142 [id number] Edita Romero [id number] N urse Practitioner [phone] 412457 hydroxyzine HCl by mouth [id number] 01/27/2020 03/25/2020 once a da y 30 50 mg tablet as needed 60547 766320 [id number] Edita Romero [id number] Nurse Practitioner [phone] 158722 Seroquel by mouth [id number] 09/10/2014 05/24/2020 at bedtime 30 1 00 mg tablet 02914 460058 [id number] Edita Romero [id number] Nurse Ashley walden [phone] 884456 trazodone by mouth [id number] 12/25/2019 05/24/2020 at bedtime 30 50 mg tablet 07251 440652 [id number] Edita Romero [id number] Nurse Ashley walden [phone] 189641 Prozac by mouth [id number] 12/30/2019 05/24/2020 every morning 30 20 mg capsule 43515 881807 [id number] Edita Romero [id number] N jime Practitioner [phone] Social History Social History Element Description Concept Effective Date Smoking Status Unknown if ever smoked [id number] Immunizations No Data in Section Vital Signs Encounter Date Height Ins Weight Lbs Bmi Bp Systolic Bp Diastoli c Oxygen Saturation Respiration Rate Pulse Rate Body Temp Head Circumference Heigh t Lying 02/24/2020 0.00 0.00 0.00 0 0 0.00 0 0 0.00 0.0 0.0 0 Procedures Date Concept Id Description Targeted Site Concept Targeted Site Concept Type 02/24/2020 35365 E/M Level 3 - Established Patient CPT Patient has no history of implantable de vices Encounters Encounter Start Date End Date Encounter Type Description Diagnosis Di agnosis Desc Location Author First Name Author Last Name Npid Taxonomy Cod e Taxonomy Desc Phone Number Location Addr1 Location Addr2 Location [facility] Location [facility] Location Zip [id number] 02/24/2020 02/24/2020 89679 E/M Level 3 - Established Pa tient F31.0 Bipolar Disorder, Current Episode Hypomanic [facility] Nick Kohler [phone] [id number] Nurse Practitioner [phone] [address] Plan of Treatment No Data in Section Lab Results No Data in Section Instructions No Data in Section Functional Cognitive Status No Data in Section Insurance Providers Insurance Id Policy Effective Date Policy Thru Date Company N julio [id number] 2019 [id number]
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
--- OUTSIDE RECORDS SUMMARY | 2020-04-30 01:23 | CCD ---
Author Author [facility] Organization [facility] Address Unknown Phone Unavailable Care Team Providers Care Artist'S Manager Name Role Phone Mariann NOEL MD Unavailable Unavailable Mariann NOEL MD Unavailable Unavailable Mariann NOEL MD Unavailable Unavailable Mariann NOEL MD Unavailable Unavailable Mariann NOEL MD Unavailable Unavailable Mariann NOEL MD Unavailable Unavailable Mariann NOEL MD Unavailable Unavailable Mariann NOEL MD Unavailable Unavailable Mariann NOEL MD Unavailable Unavailable KACHARE, D NIEVES MD Unavailable Unavailable KACHARE, D NIEVES MD Unavailable Unavailable KACHARE, D NIEVES MD Unavailable Unavailable KACHARE, D NIEVES MD Unavailable Unavailable KACHARE, D NIEVES MD Unavailable Unavailable KACHARE, D NIEVES MD Unavailable Unavailable KACHARE, D NIEVES MD Unavailable Unavailable KACHARE, D NIEVES MD Unavailable Unavailable KACHARE, D NIEVES MD Unavailable Unavailable KACHARE, D NIEVES MD Unavailable Unavailable KACHARE, D NIEVES MD Unavailable Unavailable KACHARE, D NIEVES MD Unavailable Unavailable KACHARE, D NIEVES MD Unavailable Unavailable KACHARE, D NIEVES MD Unavailable Unavailable KACHARE, D NIEVES MD Unavailable Unavailable KACHARE, D NIEVES MD Unavailable Unavailable KACHARE, D NIEVES MD Unavailable Unavailable KACHARE, D NIEVES MD Unavailable Unavailable KACHARE, D NIEVES MD Unavailable Unavailable KACHARE, D NIEVES MD Unavailable Unavailable KACHARE, D NIEVES MD Unavailable Unavailable KACHARE, D NIEVES MD Unavailable Unavailable KACHARE, D NIEVES MD Unavailable Unavailable KACHARE, D NIEVES MD Unavailable Unavailable KACHARE, D NIEVES MD Unavailable Unavailable KACHARE, D NIEVES MD Unavailable Unavailable KACHARE, D NIEVES MD Unavailable Unavailable KACHARE, D NIEVES MD Unavailable Unavailable KACHARE, D NIEVES MD Unavailable Unavailable KACHARE, D NIEVES MD Unavailable Unavailable KACHARE, D NIEVES MD Unavailable Unavailable KACHARE, D NIEVES MD Unavailable Unavailable KACHARE, D NIEVES MD Unavailable Unavailable KACHARE, D NIEVES MD Unavailable Unavailable KACHARE, D NIEVES MD Unavailable Unavailable KACHARE, D NIEVES MD Unavailable Unavailable KACHARE, D NIEVES MD Unavailable Unavailable KACHARE, D NIEVES MD Unavailable Unavailable KACHARE, D NIEVES MD Unavailable Unavailable KACHARE, D NIEVES MD Unavailable Unavailable RICHELIUS WINSTON, ANTHONY Unavailable Unavailable Acosta, Plush Miriam Unavailable Unavailable Acosta, Plush Miriam Unavailable Unavailable Acosta, Plush Miriam Unavailable Unavailable Acosta, Plush Miriam Unavailable Unavailable Acosta, Plush Miriam Unavailable Unavailable Acosta, Plush Miriam Unavailable Unavailable Acosta, Plush Miriam Unavailable Unavailable Acosta, Plush Miriam Unavailable Unavailable Acosta, Plush Miriam Unavailable Unavailable Acosta, Plush Miriam Unavailable Unavailable Mariann Jose MD Unavailable Unavailable Mariann Jose MD Unavailable Unavailable Mariann Jose MD Unavailable Unavailable Mariann Jose MD Unavailable Unavailable Mariann Jose MD Unavailable Unavailable Mariann Jose MD Unavailable Unavailable Mariann Jose MD Unavailable Unavailable Mariann Jose MD Unavailable Unavailable Mariann Jose MD Unavailable Unavailable Mariann Jose MD Unavailable Unavailable Mariann Jose MD Unavailable Unavailable Mariann Jose MD Unavailable Unavailable Mariann Jose MD Unavailable Unavailable Mariann Jose MD Unavailable Unavailable Mariann Jose MD Unavailable Unavailable Mariann Jose MD Unavailable Unavailable Mariann Jose MD Unavailable Unavailable Mariann Jose MD Unavailable Unavailable Mariann Jose MD Unavailable Unavailable Mariann Jose MD Unavailable Unavailable Mariann Jose MD Unavailable Unavailable Mariann Jose MD Unavailable Unavailable Mariann Jose MD Unavailable Unavailable Mariann Jose MD Unavailable Unavailable Mariann Jose MD Unavailable Unavailable Mariann Jose MD Unavailable Unavailable Mariann Jose MD Unavailable Unavailable Mariann Jose MD Unavailable Unavailable Mariann Jose MD Unavailable Unavailable Mariann Jose MD Unavailable Unavailable Mariann Jose MD Unavailable Unavailable Mariann Jose MD Unavailable Unavailable Mariann Jose MD Unavailable Unavailable Mariann Jose MD Unavailable Unavailable Mariann Jose MD Unavailable Unavailable Mariann Jose MD Unavailable Unavailable Mariann Jose MD Unavailable Unavailable Mariann Jose MD Unavailable Unavailable Mariann Jose MD Unavailable Unavailable Mariann Jose MD Unavailable Unavailable Mariann Jose MD Unavailable Unavailable Mariann Jose MD Unavailable Unavailable Mariann Jose MD Unavailable Unavailable Mariann Jose MD Unavailable Unavailable Mariann Jose MD Unavailable Unavailable Mariann Jose MD Unavailable Unavailable Mariann Jose MD Unavailable Unavailable Mariann Jose MD Unavailable Unavailable Mariann Jose MD Unavailable Unavailable Mariann Jose MD Unavailable Unavailable Mariann Jose MD Unavailable Unavailable Mariann Jose MD Unavailable Unavailable Mariann Jose MD Unavailable Unavailable Mariann Jose MD Unavailable Unavailable Mariann Jose MD Unavailable Unavailable Mariann Jose MD Unavailable Unavailable Mariann Jose MD Unavailable Unavailable Mariann Jose MD Unavailable Unavailable Mariann Jose MD Unavailable Unavailable Mariann Jose MD Unavailable Unavailable Mariann Jose MD Unavailable Unavailable Mariann Jose MD Unavailable Unavailable Mariann Jose MD Unavailable Unavailable Mariann Jose MD Unavailable Unavailable Mariann Jose MD Unavailable Unavailable Mariann Jose MD Unavailable Unavailable Mariann Jose MD Unavailable Unavailable Mariann Jose MD Unavailable Unavailable Mariann Jose MD Unavailable Unavailable Mariann Jose MD Unavailable Unavailable Mariann Jose MD Unavailable Unavailable Mariann Jose MD Unavailable Unavailable Mariann Jose MD Unavailable Unavailable Mariann Jose MD Unavailable Unavailable Mariann Jose MD Unavailable Unavailable Mariann Jose MD Unavailable Unavailable Mariann Jose MD Unavailable Unavailable Mariann Jose MD Unavailable Unavailable Mariann Jose MD Unavailable Unavailable Mariann Jose MD Unavailable Unavailable Mariann Jose MD Unavailable Unavailable Mariann Jose MD Unavailable Unavailable Mariann Jose MD Unavailable Unavailable Mariann Jose MD Unavailable Unavailable Mariann Jose MD Unavailable Unavailable Mariann Jose MD Unavailable Unavailable Mariann Jose MD Unavailable Unavailable Mariann Jose MD Unavailable Unavailable Mariann Jose MD Unavailable Unavailable GONZALO, R SISI DPM Unavailable Unavailable MAJAK, R SISI DPM Unavailable Unavailable MAJRON, R SISI DPM Unavailable Unavailable MAJAK, R SISI DPM Unavailable Unavailable MAJRON, R SISI DPM Unavailable Unavailable MAJRON, R SISI DPM Unavailable Unavailable MAJRON, R SISI DPM Unavailable Unavailable MAJRON, R SISI DPM Unavailable Unavailable GONZALO, R SISI DPM Unavailable Unavailable MAJAK, R SISI DPM Unavailable Unavailable MAJRON, R SISI DPM Unavailable Unavailable MAJAK, R SISI DPM Unavailable Unavailable MAJAK, R SISI DPM Unavailable Unavailable MAJAK, R SISI DPM Unavailable Unavailable MAJAK, R SISI DPM Unavailable Unavailable MAJAK, R SISI DPM Unavailable Unavailable MAJAK, R SISI DPM Unavailable Unavailable MAJAK, R SISI DPM Unavailable Unavailable MAJAK, R SISI DPM Unavailable Unavailable MAJAK, R SISI DPM Unavailable Unavailable MAJAK, R SISI DPM Unavailable Unavailable MAJAK, R SISI DPM Unavailable Unavailable AK, R SISI DPM Unavailable Unavailable AK, R SISI DPM Unavailable Unavailable AK, R SISI DPM Unavailable Unavailable MAJAK, R SISI DPM Unavailable Unavailable MAJAK, R SISI DPM Unavailable Unavailable MAJAK, R SISI DPM Unavailable Unavailable MAJAK, R SISI DPM Unavailable Unavailable MAJAK, R SISI DPM Unavailable Unavailable Trickey, J Priya PA Unavailable Unavailable Trickey, J Priya PA Unavailable Unavailable Trickey, J Priya PA Unavailable Unavailable Trickey, J Priya PA Unavailable Unavailable Trickey, J Priya PA Unavailable Unavailable Trickey, J Priya PA Unavailable Unavailable Trickey, J Priya PA Unavailable Unavailable Trickey, J Priya PA Unavailable Unavailable Trickey, J Priya PA Unavailable Unavailable Trickey, J Priya PA Unavailable Unavailable Trickey, J Priya PA Unavailable Unavailable Trickey, J Priya PA Unavailable Unavailable Trickey, J Priya PA Unavailable Unavailable Trickey, J Priya PA Unavailable Unavailable Trickey, J Priya PA Unavailable Unavailable Trickey, J Priya PA Unavailable Unavailable Trickey, J Priya PA Unavailable Unavailable Trickey, J Priya PA Unavailable Unavailable Trickey, J Rpiya PA Unavailable Unavailable Trickey, J Priya PA Unavailable Unavailable Trickey, J Priya PA Unavailable Unavailable Trickey, J Priya PA Unavailable Unavailable Trickey, J Priya PA Unavailable Unavailable Trickey, J Priya PA Unavailable Unavailable Trickey, J Priya PA Unavailable Unavailable Trickey, J Priya PA Unavailable Unavailable Trickey, J Priya PA Unavailable Unavailable Trickey, J Priya PA Unavailable Unavailable Trickey, J Priya PA Unavailable Unavailable Trickey, J Priya PA Unavailable Unavailable Trickey, J Priya PA Unavailable Unavailable Trickey, J Priya PA Unavailable Unavailable Trickey, J Priya PA Unavailable Unavailable Trickey, J Priya PA Unavailable Unavailable Trickey, J Priya PA Unavailable Unavailable Trickey, J Priya PA Unavailable Unavailable Trickey, J Priya PA Unavailable Unavailable Trickey, J Priya PA Unavailable Unavailable Trickey, J Priya PA Unavailable Unavailable Trickey, J Priya PA Unavailable Unavailable Trickey, J Priya PA Unavailable Unavailable Trickey, J Priya PA Unavailable Unavailable Trickey, J Priya PA Unavailable Unavailable Trickey, J Priya PA Unavailable Unavailable Trickey, J Priya PA Unavailable Unavailable Trickey, J Priya PA Unavailable Unavailable Trickey, J Priya PA Unavailable Unavailable Trickey, J Priya PA Unavailable Unavailable Guzman, Claire Unavailable Unavailable Sid, L Jyoti PA Unavailable Unavailable Sid, L Jyoti PA Unavailable Unavailable Sid, L Jyoti PA Unavailable Unavailable Sid, L Jyoti PA Unavailable Unavailable Sid, L Jyoti PA Unavailable Unavailable Sid, L Jyoti PA Unavailable Unavailable Sid, L Jyoti PA Unavailable Unavailable Sid, L Jyoti PA Unavailable Unavailable Sid, L Jyoti PA Unavailable Unavailable Sid, L Jyoti PA Unavailable Unavailable Sid, L Jyoti PA Unavailable Unavailable Sid, L Jyoti PA Unavailable Unavailable Sid, L Jyoti PA Unavailable Unavailable Sid, L Jyoti PA Unavailable Unavailable Sid, L Jyoti PA Unavailable Unavailable Sid, L Jyoti PA Unavailable Unavailable Sid, L Jyoti PA Unavailable Unavailable Sid, L Jyoti PA Unavailable Unavailable Sid, L Jyoti PA Unavailable Unavailable Soraya Lau Jyoti PA Unavailable Unavailable Sid, Soraya Jyoti PA Unavailable Unavailable Sid, Soraya Jyoti PA Unavailable Unavailable Sid, Soraya Jyoti PA Unavailable Unavailable Gena Giles Unavailable RAYDICKSON ANDREA MD Unavailable Unavailable RAYANCHA, ANDREA MD Unavailable Unavailable RAYANCHA, ANDREA MD Unavailable Unavailable RAYANCHA, ANDREA MD Unavailable Unavailable RAYANCHA, ANDREA MD Unavailable Unavailable RAYANCHA, ANDREA MD Unavailable Unavailable RAYANCHA, ANDREA MD Unavailable Unavailable RAYANCHA, ANDREA MD Unavailable Unavailable RAYANCHA, ANDREA MD Unavailable Unavailable RAYANCHA, ANDREA MD Unavailable Unavailable RAYANCHA, ANDREA MD Unavailable Unavailable RAYANCHA, ANDREA MD Unavailable Unavailable RAYANCHA, ANDREA MD Unavailable Unavailable RAYANCHA, ANDREA MD Unavailable Unavailable RAYANCHA, ANDREA MD Unavailable Unavailable RAYANCHA, ANDREA MD Unavailable Unavailable RAYANCHA, ANDREA MD Unavailable Unavailable RAYANCHA, ANDREA MD Unavailable Unavailable RAYANCHA, ANDREA MD Unavailable Unavailable RAYANCHA, ANDREA MD Unavailable Unavailable RAYANCHA, ANDREA MD Unavailable Unavailable RAYANCHA, ANDREA MD Unavailable Unavailable RAYANCHA, ANDREA MD Unavailable Unavailable RAYANCHA, ANDREA MD Unavailable Unavailable ALOK, H MARYAM MARQUETRY WORKER Unavailable Unavailable ALOK, H MARYAM MARQUETRY WORKER Unavailable Unavailable ALOK, H MARYAM MARQUETRY WORKER Unavailable Unavailable ALOK, H MARYAM MARQUETRY WORKER Unavailable Unavailable ALOK, H MARYAM MARQUETRY WORKER Unavailable Unavailable ALOK, H MARYAM MARQUETRY WORKER Unavailable Unavailable ALOK, H MARYAM MARQUETRY WORKER Unavailable Unavailable ALOK, H MARYAM MARQUETRY WORKER Unavailable Unavailable SherineChung cash MD Unavailable Unavaila violeta WhiteChung MD Unavailable Unavaila violeta WhiteChung MD Unavailable Unavaila violeta WhiteChung MD Unavailable Unavaila violeta WhiteChung MD Unavailable Unavaila violeta WhiteChung MD Unavailable Unavaila violeta WhiteChung MD Unavailable Unavaila violeta SherineChung cash MD Unavailable Unavaila violeta WhiteChung MD Unavailable Unavaila ble Paulino Fletcher Unavailable Unavailable Paulino Fletcher Unavailable Unavailable Paulino Fletcher Unavailable Unavailable Paulino Fletcher Unavailable Unavailable Poiesz, J Cornelio Unavailable Unavailable Poiesz, J Cornelio Unavailable Unavailable Poiesz, J Cornelio Unavailable Unavailable Poiesz, J Cornelio Unavailable Unavailable Poiesz, J Cornelio Unavailable Unavailable Poiesz, J Cornelio Unavailable Unavailable Poiesz, J Cornelio Unavailable Unavailable Poiesz, J Cornelio Unavailable Unavailable Poiesz, J Cornelio Unavailable Unavailable Poiesz, J Cornelio Unavailable Unavailable Poiesz, J Cornelio Unavailable Unavailable Poiesz, J Cornelio Unavailable Unavailable Poiesz, J Cornelio Unavailable Unavailable Poiesz, J Cornelio Unavailable Unavailable Poiesz, J Cornelio Unavailable Unavailable Poiesz, J Cornelio Unavailable Unavailable Poiesz, J Cornelio Unavailable Unavailable Poiesz, J Cornelio Unavailable Unavailable Poiesz, J Cornelio Unavailable Unavailable Poiesz, J Cornelio Unavailable Unavailable Poiesz, J Cornelio Unavailable Unavailable Poiesz, J Cornelio Unavailable Unavailable Poiesz, J Cornelio Unavailable Unavailable Poiesz, J Cornelio Unavailable Unavailable Poiesz, J Cornelio Unavailable Unavailable Poiesz, J Cornelio Unavailable Unavailable Poiesz, J Cornelio Unavailable Unavailable Poiesz, J Cornelio Unavailable Unavailable Poiesz, J Cornelio Unavailable Unavailable Poiesz, J Cornelio Unavailable Unavailable Poiesz, J Cornelio Unavailable Unavailable Poiesz, J Cornelio Unavailable Unavailable Poiesz, J Cornelio Unavailable Unavailable Poiesz, J Cornelio Unavailable Unavailable Poiesz, J Cornelio Unavailable Unavailable Poiesz, J Cornelio Unavailable Unavailable Poiesz, J Cornelio Unavailable Unavailable Poiesz, J Cornelio Unavailable Unavailable Poiesz, J Cornelio Unavailable Unavailable Poiesz, J Cornelio Unavailable Unavailable Poiesz, J Cornelio Unavailable Unavailable Poiesz, J Cornelio Unavailable Unavailable Poiesz, J Cornelio Unavailable Unavailable Poiesz, J Cornelio Unavailable Unavailable Re-disclosure Warning The records that you are about to access may contain information from federally-assisted alcohol or drug abuse programs. If such information is present, then the following federally mandated warning applies: This information has been disclosed to you from records protected by federal confidentiality rules (42 CFR part 2). The federal rules prohibit you from making any further disclosure of this information unless further disclosure is expressly permitted by the written consent of the person to whom it pertains or as otherwise permitted by 42 CFR part 2. A general authorization for the release of medical or other information is NOT sufficient for this purpose. The Federal rules restrict any use of the information to criminally investigate or prosecute any alcohol or drug abuse patient.The records that you are about to access may contain highly sensitive health information, the redisclosure of which is protected by Article 27-F of the [facility] Public Health law. If you continue you may have access to information: Regarding HIV / AIDS; Provided by facilities licensed or operated by the [facility] Office of Mental Health; or Provided by the [facility] Office for People With Developmental Disabilities. If such information is present, then the following [facility] mandated warning applies: This information has been disclosed to you from confidential records which are protected by state law. State law prohibits you from making any further disclosure of this information without the specific written consent of the person to whom it pertains, or as otherwise permitted by law. Any unauthorized further disclosure in violation of state law may result in a fine or fpc sentence or both. A general authorization for the release of medical or other information is NOT sufficient authorization for further disc losure. Allergies and Adverse Reactions Type Description Substance Reaction Status Data Source(s ) DRUG INGREDI THIORIDAZINE THIORIDAZINE [facility] DRUG INGREDI HALOPERIDOL HALOPERIDOL [facility] SYSTEMIC NO ALLERGIES ON FILE NO ALLERGIES ON FILE [facility] DRUG INGREDI THIORIDAZINE Thioridazine [facility] DRUG INGREDI HALOPERIDOL Haloperidol [facility] DRUG INGREDI FLUPHENAZINE Fluphenazine [facility] DRUG INGREDI CHLORPROMAZINE Chlorpromazine [facility] Drug allergy Thioridazine HCl Thioridazine Unknown Active eCW1 ([facility]) ACEI ACEI ACEI cough Active eCW1 ([facility]) ACEI ACEI ACEI cough Active eCW1 ([facility]) ACEI ACEI ACEI cough Active eCW1 ([facility]) Allergy to substance Allergy to substance Allergy to substance JAYANT ([facility]) Allergy to substance Allergy to substance Allergy to substance JAYANT ([facility]) Allergy to substance Allergy to substance Allergy to substance JAYANT ([facility]) Family History Family Member Name Family Member Gender Family Member Status Date o f Status Description Data Source(s) Unknown Unknown Problem [facility] ([facility] Encounters Encounter Providers Location Date Indications Data Source(s ) Outpatient Attender: Cornelio Fletcher 10/28/2020 12:00:00 AM [facility] Outpatient Attender: Cornelio Fletcher 021 12:00:00 AM EST - 04/29/2020 04:31:36 PM EST Unspecified b-cell lymphoma, extranodal and solid orga n [facility] Unspecified b-cell lymphoma, extranodal and solid organ sites [place] [address] [facility] [address] 04/26/2020 12:00:00 AM EST eCW1 ([facility]) Outpatient Attender: Cornelio Fletcher 04/22/2020 12:00:00 AM [facility] Outpatient Attender: MARYAM ROMERO NP [facility] 04/20/2020 11:30:00 AM EST - 04/20/2020 11:30:00 AM EST [facility] ([facility]) Attender: MARYAM ROMERO NP 04/20/2020 12:00:00 AM EST [facility] ([facility]) [place] [address] [facility] [address] 04/06/2020 12:00:00 AM EST eCW1 ([facility]) [place] [address] [facility] [address] 03/30/2020 12:00:00 AM EST eCW1 ([facility]) Miriam Acosta, EMPLOYMENT OFFICE CLERK-C: [address] [place] [phone], Ph. Attender: Miriam CEE - [facility] Medical 03/30/2020 12:00:00 AM EST [facility] ([facility]) [place] [address] [facility] [address] 03/24/2020 12:00:00 AM EST [facility] Outpatient Attender: MARYAM ROMERO MARQUETRY WORKER [facility] 03/23/2020 11:30:00 AM EST - 03/23/2020 11:30:00 AM EST [facility] ([facility]) Attender: MARYAM ROMERO MARQUETRY WORKER 03/23/2020 12:00:00 AM EST [facility] ([facility]) Outpatient Attender: SISI SÁNCHEZ [facility] Office 03/05 12:45:00 PM EST MED[facility] ([facility] Unknown [address] [facility] [id number] 03/17/2020 12:00:00 AM EST [facility]CW1 ([facility] Unknown [address] [facility] [address] 03/15/2020 12:00:00 AM EST eCW1 ([facility]) Unknown [address] [facility] [id number] 03/04/2020 12:00:00 AM EST eCW1 ([facility]) Outpatient [address] [facility] [id number] 03/03/2020 12:00:00 AM EST eCW1 ([facility]) Humberto Jose MD: [address] [place] [phone], Ph. Attender: Humberto Jose MD [facility] Medical 03/02/2020 12:00:00 AM EST JAYANT ([facility]) Humberto Jose MD: [address] [place] [phone], Ph. Attender: Humberto Jose MD [facility] Medical 03/02/2020 12:00:00 AM EST JAYANT ([facility]) Humberto Jose MD: [address] [place] [phone], Ph. Attender: Humberto Jose MD [place] - [facility] Medical 03/02/2020 12:00:00 AM EST JAYANT ([facility]) Outpatient Attender: MARYAM ROMERO NP [facility] 02/24/2020 11:30:00 AM EST - 02/24/2020 11:30:00 AM EST [facility] ([facility]) Attender: MARYAM ROMERO NP 02/24/2020 12:00:00 AM EST [facility] ([facility] Unknown [address] [facility] [id number] 02/12/2020 12:00:00 AM EST eCW1 ([facility]) Unknown [address] [facility] [address] 02/02/2020 12:00:00 AM EST eCW1 ([facility]) Unknown [address] [facility] [address] 01/30/2020 12:00:00 AM EST eCW1 ([facility]) Outpatient Attender: MARYAM ROMERO NP [facility] 01/27/2020 10:30:00 AM EST - 01/27/2020 10:30:00 AM EST [facility] ([facility]) Attender: MARYAM ROMERO NP 01/27/2020 12:00:00 AM EST [facility] ([facility]) Outpatient Attender: SISI SÁNCHEZ [facility] Office 06/2019 12:45:00 PM EST [facility] ([facility] Unknown [address] [facility] [address] 01/07/2020 12:00:00 AM EST eCW1 ([facility]) [facility] [address] [facility] [address] 01/05/2020 12:00:00 AM EST eCW1 ([facility]) Outpatient Attender: MARYAM ROMERO NP [facility] 12/30/2019 11:30:00 AM EDT - 12/30/2019 11:30:00 AM EDT [facility] ([facility]) Attender: MARYAM ROMERO NP 12/30/2019 12:00:00 AM EDT [facility] ([facility]) Psychiatric Diagnostic Evaluation with Medical Service s Att[facility]: [facility] 04:00:00 AM EDT - 12/02/2019 04:00:00 AM EDT [facility] ([facility]) Attender: MARYAM ROMERO NP 12/02/2019 12:00:00 AM EDT [facility] ([facility]) Attender: MARYAM ROMERO NP 11/27/2019 12:00:00 AM EDT [facility] ([facility]) Outpatient Attender: MARYAM ROMERO NP [facility] 11/24/2019 03:00:00 AM EDT - 11/24/2019 03:00:00 AM EDT [facility] ([facility]) Outpatient Attender: Priya Duong [place] Main office - [facility] 11/21/2019 12:00:00 PM EDT MEDENT ([facility] [place]) IP PSYCH Attender: Pj crow MDAttender: ANTHONY MULLER MDAdmitter: Pj Pageland MDConsultant: NIEVES NOEL MDConsultant: ANDREA GARCIA MD [id number] 11/09/2019 04:27:24 PM EDT - 11/13/2019 03:30:00 PM EDT [facility] Patient discharged. Outpatient 11/09/2019 08:24:00 AM EDT suicidal ideations [facility] suicidal ideations Outpatient Attender: SISI SÁNCHEZ [facility] Office 10/04 01:15:00 PM EDT [facility] [address] [address] 10/21/2019 12:00:00 AM EDT eCW1 (Formerly [facility]) Outpatient Attender: Cornelio Pattersondmitter: Cornelio Fletcher [id number] 10/16/2019 12:00:00 AM EDT - 10/16/2019 01:42:04 PM EDT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, unspecified, unspecified site [facility]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, unspecified, unspecified site Outpatient [address] [facility] [place] [address] 09/09/2019 12:00:00 AM EDT eCW1 (Formerly [facility]) Outpatient Attender: Jyoti LOGAN Main Office 08/19/2019 01:30:0 0 PM EDT MEDENT ([facility]) Outpatient Attender: MARYAM ROMERO NP [facility] Misael quiroga 08/04/2019 01:00:00 AM EDT - 08/04/2019 01:00:00 AM EDT [facility] ([facility]) Attender: MARYAM ROMERO NP 08/04/2019 12:00:00 AM EDT [facility] ([facility]) [facility] [address] [facility] [facility] [place] [address] 07/29/2019 12:00:00 AM EDT eCW1 (Formerly [facility]) [facility] [address] [place] [address] [place] [address] 07/21/2019 12:00:00 AM EDT eCW1 (Formerly [facility]) Outpatient Attender: MARYAM ROMERO NP [facility] Misael quiroga 07/07/2019 01:30:00 AM EDT - 07/07/2019 01:30:00 AM EDT [facility] ([facility]) Attender: MARYAM ROMERO NP 07/07/2019 12:00:00 AM EDT [facility] ([facility]) [facility] [address] [facility] [place] [address] 07/04/2019 12:00:00 AM EDT eCW1 (Formerly [facility]) [facility] [address] [facility] [address] 07/02/2019 12:00:00 AM EDT eCW1 (Formerly [facility]) TEMPMHCTelemed 20" psychotherapy Attender: Claire Hinds [facility]el 06/27/2019 10:30:00 AM EDT - 06/27/2019 10:30:00 AM EDT [facility] ([facility]) Attender: Claire Hinds 06/27/2019 12:00:00 AM EDT [facility] ([facility]) Outpatient Attender: MARYAM ROMERO NP [facility] Misael quiroga 06/09/2019 01:30:00 AM EDT - 06/09/2019 01:30:00 AM EDT [facility] ([facility]) Attender: MARYAM ROMERO NP 06/09/2019 12:00:00 AM EDT [facility] ([facility]) [facility] [address] [facility] [address] 06/04/2019 12:00:00 AM EDT eCW1 ([facility]ly [facility]) [facility] [address] [facility] [address] 04/28/2019 12:00:00 AM EST eCW1 (Formerly [facility]) [facility] [address] [place] [address], [place] [address] 04/20/2019 12:00:00 AM EST eCW1 (Formerly [facility]) Outpatient Attender: Cornelio Mitchellitter: Cornelio HernandezA-ONCCACTR 04/17/2019 12:00:00 AM EST - 04/17/2019 02:31:27 PM EST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, unspecified, unspecified site [facility]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, unspecified, unspecified site Outpatient Attender: MARYAM ROMERO NP [facility] Misael quiroga 04/14/2019 03:00:00 AM EST - 04/14/2019 03:00:00 AM EST [facility] ([facility]) Attender: MARYAM ROMERO NP 04/14/2019 12:00:00 AM EST [facility] ([facility]) [address] [address] 04/01/2019 12:00:00 AM EST eCW1 ([facility]ly [facility]) [address] [address] 03/31/2019 12:00:00 AM EST eCW1 ([facility]ly [facility]) [address] [address] 03/28/2019 12:00:00 AM EST eCW1 ([facility]ly [facility]) [address] [address] 03/25/2019 12:00:00 AM EST eCW1 ([facility]ly [facility]) Brief Individual Psychotherapy - 30 min Attender: Gena [facility] 03/21/2019 01:00:00 AM EST - 03/21/2019 01:00:00 AM EST [facility] ([facility]) Attender: Gena Giles 03/21/2019 12:00:00 AM EST [facility] ([facility]) [address] [address] 03/17/2019 12:00:00 AM EST eCW1 ([facility]ly [facility]) Outpatient Attender: Priya Duong [facility] 03/11/2019 10:00:00 AM EST MEDENT ([facility] [place]) [address] [address] 03/10/2019 12:00:00 AM EST eCW1 ([facility]ly [facility]) Functional Status Immunizations Vaccine Date Status Description Data Source(s) influenza, recombinant, quadrIvalent,injectable, prese rvative free 04/29/2020 06:06:00 PM EST completed eCW1 (Formerly [facility]) COVID-19 dose #2 given elsewhere Unspecified 04/02/2020 09:3 0:00 AM EST completed eCW1 ([facility]) COVID-19, mRNA, LNP-S, PF, 100 mcg/0.5 mL dose 03/02/2020 05 :04:16 PM EST completed 03/02/20200.5 mL JAYANT ([facility]) COVID-19, mRNA, LNP-S, PF, 100 mcg/0.5 mL dose 03/02/2020 05 :04:16 PM EST completed .5 mL JAYANT ([facility]) COVID-19, mRNA, LNP-S, PF, 100 mcg/0.5 mL dose 03/02/2020 05 :04:16 PM EST completed .5 mL JAYANT ([facility]) COVID-19 dose #1 given elsewhere Unspecified 03/02/2020 09:2 9:00 AM EST completed eCW1 ([facility]) Medications Medication Brand Name Start Date Product Form Dose Route Admi nistrative Instructions Pharmacy Instructions Status Indications Reaction Description Data Source(s) sildenafil 50 MG Oral Tablet Sildenafil Citrate 50 MG Silden afil Citrate 50 MG 04/29/2020 12:00:00 AM EST 1.0 {tablet} active Sildenafil Citrate 50 MG eCW1 ([facility]) Fluticasone Propionate 50 MCG/ACT Fluticasone Propionate 50 MCG/ACT 03/03/2020 12:00:00 AM EST 2.0 {sprays_in_each_nostril} act car Fluticasone Propionate 50 MCG/ACT eCW1 ([facility]) Fluticasone Propionate 50 MCG/ACT Fluticasone Propionate 50 MCG/ACT 03/03/2020 12:00:00 AM EST 2.0 {sprays_in_each_nostril} act car Fluticasone Propionate 50 MCG/ACT eCW1 ([facility]) Fluticasone Propionate 50 MCG/ACT Fluticasone Propionate 50 MCG/ACT 03/03/2020 12:00:00 AM EST 2.0 {sprays_in_each_nostril} act car Fluticasone Propionate 50 MCG/ACT eCW1 ([facility]) Fluticasone Propionate 50 MCG/ACT Fluticasone Propionate 50 MCG/ACT 03/03/2020 12:00:00 AM EST 2.0 {sprays_in_each_nostril} act car Fluticasone Propionate 50 MCG/ACT eCW1 ([facility]) Fluticasone Propionate 50 MCG/ACT Fluticasone Propionate 50 MCG/ACT 03/03/2020 12:00:00 AM EST 2.0 {sprays_in_each_nostril} act car Fluticasone Propionate 50 MCG/ACT eCW1 ([facility]) Fluticasone Propionate 50 MCG/ACT Fluticasone Propionate 50 MCG/ACT 03/03/2020 12:00:00 AM EST 2.0 {sprays_in_each_nostril} act car Fluticasone Propionate 50 MCG/ACT eCW1 ([facility]) Fluticasone Propionate 50 MCG/ACT Fluticasone Propionate 50 MCG/ACT 03/03/2020 12:00:00 AM EST 2.0 {sprays_in_each_nostril} act car Fluticasone Propionate 50 MCG/ACT eCW1 ([facility]) Fluticasone Propionate 50 MCG/ACT Fluticasone Propionate 50 MCG/ACT 03/03/2020 12:00:00 AM EST 2.0 {sprays_in_each_nostril} act car Fluticasone Propionate 50 MCG/ACT eCW1 ([facility]) Hydroxyzine Hydrochloride 50 MG Oral Tablet hydroxyzine HCl 01/27/2020 12:00:00 AM EST 50 mg by mouth completed [id number] hydroxyzine HCl by mouth [id number] 01/27/2020 05/22/2020 once a day 30 50 mg tablet as needed 80 436 [id number] Maryam Romero [id number] Nurse Practitioner [facility] ([facility]) Fluoxetine 20 MG Oral Capsule [Prozac] Prozac 12/30/2019 12:0 0:00 AM EDT 20 mg by mouth completed [id number] Prozac by mouth [id number] 1 03/29/2020 every morning 30 20 mg capsule 86047 086518 [id number] Ray Romero [id number] Nurse Practitioner [facility] ([facility]) Fluoxetine 20 MG Oral Capsule [Prozac] Prozac 12/30/2019 12:0 0:00 AM EDT 20 mg by mouth completed 870341 Prozac by mouth [id number] 1 06/29/2020 every morning 30 20 mg capsule 75132 [id number] Piotr shyam Diaz [id number] Psychiatric/Mental Health [facility] ([facility]) Trazodone Hydrochloride 50 MG Oral Tablet trazodone 2019 12:00:00 AM EDT 50 mg by mouth completed 089767 trazodone by mouth C382 88 12/25/2019 03/24/2020 at bedtime 30 50 mg tablet 83346 525629 [id number] Pati Romero [id number] Nurse Practitioner [facility] ([facility]) Trazodone Hydrochloride 50 MG Oral Tablet trazodone 2019 12:00:00 AM EDT 50 mg by mouth completed 252217 trazodone by mouth C382 88 12/25/2019 06/13/2020 at bedtime 30 50 mg tablet 68071 443415 [id number] Pati Romero [id number] Nurse Practitioner [facility] ([facility]) Fluoxetine 10 MG Oral Capsule [Prozac] Prozac 09/29/2019 12:0 0:00 AM EDT 10 mg by mouth completed 902987 Prozac by mouth [id number] 0 09/29/2019 01/26/2020 every morning 30 10 mg capsule 66195 872825 [id number] Ray Romero [id number] Nurse Practitioner [facility] ([facility]) Fluoxetine 10 MG Oral Capsule [Prozac] Prozac 09/29/2019 12:0 0:00 AM EDT 10 mg by mouth completed [id number] Prozac by mouth [id number] 0 09/29/2019 12/30/2019 every morning 30 10 mg capsule 80664 909703 [id number] Ray Romero [id number] Nurse Practitioner [facility] ([facility]) Tamsulosin hydrochloride 0.4 MG Oral Capsule Tamsulosin HCL 09/23/2019 12:00:00 AM EDT ORAL active [facility] ([facility]) Trazodone Hydrochloride 50 MG Oral Tablet trazodone 2019 12:00:00 AM EDT 50 mg by mouth completed 926939 trazodone by mouth C382 88 09/19/2019 11/27/2019 at bedtime 30 50 mg tablet 23139 724392 [id number] Pati Romero [id number] Nurse Practitioner [facility] ([facility]) [place] Carbonate 300 MG Oral Capsule lithium carbonate 12:00:00 AM EDT 300 mg by mouth completed 140422 lithium car bonate by mouth [id number] 09/15/2019 twice a day 300 mg capsule 57851 13314 6 [id number] Karel Velez [id number] Nurse Practitioner [facility] ([facility]) Hydroxyzine Hydrochloride 50 MG Oral Tablet Hydroxyzine HCL 08/18/2019 12:00:00 AM EDT ORAL active MEDENT ([facility] [facility] 08/18/2019 12:00:00 AM EDT ORAL active MEDENT ([facility]) Acetaminophen 325 MG Oral Tablet Acetaminophen 08/18/2019 12:00:00 AM EDT active MEDENT ([facility]) Ketoconazole 20 MG/ML Topical Cream Ketoconazole 08/18/2019 12:00:00 AM EDT active MED[facility] ([facility]) Losartan Potassium 50 MG Oral Tablet Losartan Potassium 12:00:00 AM EDT ORAL active MEDENT ([facility]) Trazodone Hydrochloride 50 MG Oral Tablet Trazodone HCL 08/18/2019 12:00:00 AM EDT ORAL active MEDENT ([facility]) Levothyroxine Sodium 0.1 MG Oral Tablet Levothyroxine Sodium 08/18/2019 12:00:00 AM EDT ORAL active MEDENT ([facility]) Propranolol Hydrochloride 10 MG Oral Tablet Propranolol HCL 08/18/2019 12:00:00 AM EDT ORAL active MED[facility] ([facility]) Naproxen 500 MG Oral Tablet Naproxen 08/18/2019 12:00:00 AM EDT ORAL active MEDENT ([facility]) Fluoxetine 10 MG Oral Capsule Fluoxetine HCL (PMDD) 08/18/2019 1 2:00:00 AM EDT ORAL active MEDENT ( [facility] [place] [facility] 07/17/2019 12:00:00 AM EDT ORAL active MEDENT ([facility]) ammonium lactate 120 MG/ML Topical Cream Ammonium Lactate 07/10/2019 12:00:00 AM EDT active MEDENT ([facility] Trazodone Hydrochloride 50 MG Oral Tablet trazodone 2019 12:00:00 AM EDT 50 mg by mouth completed [id number] trazodone by mouth C382 88 06/16/2019 09/14/2019 at bedtime 30 50 mg tablet 30849 693749 [id number] Pati Romero [id number] Nurse Practitioner [facility] ([facility]) [facility] [facility] 06/11/2019 12:00:00 AM EDT 9 mg by mouth completed [id number] [place] by mouth D79765 06/11/2019 09/09/2019 twice a day 30 9 mg tablet 58657 477525 [id number] Maryam Romero [id number] Nurse Reyna willoughby [facility] ([facility]) [place] [facility] 06/09/2019 12:00:00 AM EDT 9 mg by mouth completed 1341062 [place] by mouth L84551 06/09/2019 09/07/2019 every morning 30 9 m g tablet 71039 454237 [id number] Maryam Romero [id number] Nurse Ashley walden [facility] ([facility]) [place] Carbonate 300 MG Oral Capsule lithium carbonate 12:00:00 AM EDT 300 mg by mouth completed 521157 lithium car bonate by mouth P25079 05/13/2019 09/07/2019 twice a day 30 300 mg capsule as directe d 90673 897757 [id number] Maryam Romero [id number] Nurse Practitioner [facility] ([facility]) [place] Carbonate 300 MG Oral Capsule lithium carbonate 12:00:00 AM EDT 300 mg by mouth completed 833089 lithium car bonate by mouth Q05087 05/13/2019 09/07/2019 twice a day 30 300 mg capsule as directe d 53787 144453 [id number] Maryam Romero [id number] Nurse Practitioner [facility] ([facility]) [place] [facility] 05/12/2019 12:00:00 AM EDT 6 mg by mouth completed 6015990 [place] by mouth M00427 05/12/2019 06/09/2019 twice a day 30 6 mg tablet 03669 551561 [id number] Maryam Romero [id number] Nurse Practi tioner [facility] ([facility]) Docusate Sodium 100 MG Oral Capsule [Colace] Colace 100 MG C olace 100 MG 03/31/2019 12:00:00 AM EST active 1 capsule as needed eCW1 ([facility]) Hydroxyzine Hydrochloride 50 MG Oral Tablet HydrOXYzin e HCl 50 MG HydrOXYzine HCl 50 MG 03/31/2019 12:00:00 AM EST 1.0 {tablet_as_needed} active HydrOXYzine HCl 50 MG eCW1 ([facility]) Hydroxyzine Hydrochloride 50 MG Oral Tablet HydrOXYzin e HCl 50 MG HydrOXYzine HCl 50 MG 03/31/2019 12:00:00 AM EST 1.0 {tablet_as_needed} active HydrOXYzine HCl 50 MG eCW1 ([facility]) Docusate Sodium 100 MG Oral Capsule [Colace] Colace 100 MG C olace 100 MG 03/31/2019 12:00:00 AM EST 1.0 {capsule_as_needed} active Colace 100 MG eCW1 ([facility]) Hydroxyzine Hydrochloride 50 MG Oral Tablet HydrOXYzin e HCl 50 MG HydrOXYzine HCl 50 MG 03/31/2019 12:00:00 AM EST 1.0 {tablet_as_needed} active HydrOXYzine HCl 50 MG eCW1 ([facility]) Hydroxyzine Hydrochloride 50 MG Oral Tablet HydrOXYzin e HCl 50 MG HydrOXYzine HCl 50 MG 03/31/2019 12:00:00 AM EST active 1 tablet as needed eCW1 ([facility]) Hydroxyzine Hydrochloride 50 MG Oral Tablet HydrOXYzin e HCl 50 MG HydrOXYzine HCl 50 MG 03/31/2019 12:00:00 AM EST 1.0 {tablet_as_needed} active HydrOXYzine HCl 50 MG eCW1 ([facility]) Docusate Sodium 100 MG Oral Capsule [Colace] Colace 100 MG C olace 100 MG 03/31/2019 12:00:00 AM EST 1.0 {capsule_as_needed} active Colace 100 MG eCW1 ([facility]) Docusate Sodium 100 MG Oral Capsule [Colace] Colace 100 MG C olace 100 MG 03/31/2019 12:00:00 AM EST 1.0 {capsule_as_needed} active Colace 100 MG eCW1 ([facility]) Hydroxyzine Hydrochloride 50 MG Oral Tablet HydrOXYzin e HCl 50 MG HydrOXYzine HCl 50 MG 03/31/2019 12:00:00 AM EST 1.0 {tablet_as_needed} active HydrOXYzine HCl 50 MG eCW1 ([facility]) Hydroxyzine Hydrochloride 50 MG Oral Tablet HydrOXYzin e HCl 50 MG HydrOXYzine HCl 50 MG 03/31/2019 12:00:00 AM EST 1.0 {tablet_as_needed} active HydrOXYzine HCl 50 MG eCW1 ([facility]) Hydroxyzine Hydrochloride 50 MG Oral Tablet HydrOXYzin e HCl 50 MG HydrOXYzine HCl 50 MG 03/31/2019 12:00:00 AM EST 1.0 {tablet_as_needed} active HydrOXYzine HCl 50 MG eCW1 ([facility]) Hydroxyzine Hydrochloride 50 MG Oral Tablet HydrOXYzin e HCl 50 MG HydrOXYzine HCl 50 MG 03/31/2019 12:00:00 AM EST 1.0 {tablet_as_needed} active HydrOXYzine HCl 50 MG eCW1 ([facility]) Hydroxyzine Hydrochloride 50 MG Oral Tablet HydrOXYzin e HCl 50 MG HydrOXYzine HCl 50 MG 03/31/2019 12:00:00 AM EST 1.0 {tablet_as_needed} active HydrOXYzine HCl 50 MG eCW1 ([facility]) Hydroxyzine Hydrochloride 50 MG Oral Tablet HydrOXYzin e HCl 50 MG HydrOXYzine HCl 50 MG 03/31/2019 12:00:00 AM EST 1.0 {tablet_as_needed} active HydrOXYzine HCl 50 MG eCW1 ([facility]) Hydroxyzine Hydrochloride 50 MG Oral Tablet HydrOXYzin e HCl 50 MG HydrOXYzine HCl 50 MG 03/31/2019 12:00:00 AM EST 1.0 {tablet_as_needed} active HydrOXYzine HCl 50 MG eCW1 ([facility]) Docusate Sodium 100 MG Oral Capsule [Colace] Colace 100 MG C olace 100 MG 03/31/2019 12:00:00 AM EST active 1 capsule as needed eCW1 ([facility]) Hydroxyzine Hydrochloride 50 MG Oral Tablet HydrOXYzin e HCl 50 MG HydrOXYzine HCl 50 MG 03/31/2019 12:00:00 AM EST active 1 tablet as needed eCW1 ([facility]) Hydroxyzine Hydrochloride 50 MG Oral Tablet HydrOXYzin e HCl 50 MG HydrOXYzine HCl 50 MG 03/31/2019 12:00:00 AM EST 1.0 {tablet_as_needed} active HydrOXYzine HCl 50 MG eCW1 ([facility]) Docusate Sodium 100 MG Oral Capsule [Colace] Colace 100 MG C olace 100 MG 03/31/2019 12:00:00 AM EST 1.0 {capsule_as_needed} active Colace 100 MG eCW1 ([facility]) Hydroxyzine Hydrochloride 50 MG Oral Tablet HydrOXYzin e HCl 50 MG HydrOXYzine HCl 50 MG 03/31/2019 12:00:00 AM EST 1.0 {tablet_as_needed} active HydrOXYzine HCl 50 MG eCW1 ([facility]) Docusate Sodium 100 MG Oral Capsule [Colace] Colace 100 MG C olace 100 MG 03/31/2019 12:00:00 AM EST 1.0 {capsule_as_needed} active Colace 100 MG eCW1 ([facility]) Hydroxyzine Hydrochloride 50 MG Oral Tablet HydrOXYzin e HCl 50 MG HydrOXYzine HCl 50 MG 03/31/2019 12:00:00 AM EST 1.0 {tablet_as_needed} active HydrOXYzine HCl 50 MG eCW1 ([facility]) [place] 03/11/2019 12:00:00 AM EST ORAL active MEDENT ([facility]) [place] [facility] 10/22/2018 12:00:00 AM EDT 6 mg by mouth completed [id number] [place] by mouth [id number] 10/22/2018 05/11/2019 twice a day 30 6 mg tablet 41677 302143 [id number] Maryam Romero [id number] Nurse Practi tioner [facility] ([facility]) quetiapine 100 MG Oral Tablet [Seroquel] Seroquel 09/10/2014 12 :00:00 AM EDT 100 mg by mouth completed [id number] Seroquel by mouth [id number] 8 09/10/2014 03/01/2020 at bedtime 30 100 mg tablet 77511 [id number] Justin Romero [id number] Nurse Practitioner [facility] ([facility]) Insurance Providers Payer name Policy type / Coverage type Policy ID Covered green party ID Covered green party's relationship to hunt Policy Hunt Plan Information [employer] [id number] SP [id number] [facility] I [id number] Self [id number] [facility] [id number] SP [id number] [facility] O [id number] S [id number] [facility] MEDICAID [id number] Self [id number] [facility] I [id number] Self [id number] [facility] [id number] SP [id number] [facility] [id number] Self [id number] [facility] [id number] SP [id number] ANSI-Medicaid [id number] ANSI-Medicaid [id number] [facility] Commercial [id number] Self [id number] ANSI-Medicaid [id number] U/HC Medicaid Comm Plan Commercial [id number] Self [id number] [facility] Commercial [id number] Self [id number] ANSI-Medicaid [id number] ANSI-Medicaid [id number] ANSI-Medicaid [id number] ANSI-Medicaid [id number] ANSI-Medicaid [id number] [facility] Commercial [id number] Self [id number] ANSI-Medicaid [id number] ANSI-Medicaid [id number] ANSI-Medicaid [id number] ANSI-Medicaid [id number] ANSI-Medicaid [id number] ANSI-Medicaid [id number] ANSI-Medicaid [id number] ANSI-Medicaid [id number] ANSI-Medicaid [id number] ANSI-Medicaid [id number] ANSI-Medicaid [id number] [facility] [id number] SP [id number] ANSI-Medicaid [id number] [facility] [id number] Self [id number] ANSI-Medicaid [id number] ANSI-Medicaid [id number] ANSI-Medicaid [id number] ANSI-Medicaid [id number] ANSI-Medicaid [id number] ANSI-Medicaid [id number] ANSI-Medicaid [id number] ANSI-Medicaid [id number] ANSI-Medicaid [id number] [facility] [id number] SP [id number] ANSI-Medicaid [id number] [facility] [id number] Self [id number] [facility] [id number] SP [id number] [facility] [id number] Self [id number] [facility] [facility] [place] Community Plan Commercial [id number] Self [id number] [facility] [place] Community Plan Medigap Part B [id number] Self [id number] [facility] [place] Community Plan Commercial [id number] Self [id number] [facility] Plan Commercial [id number] Self [id number] [facility] Commercial [id number] Self [id number] OTHER1 UNAVAILABLE UNAVAILA BLE [facility] Hmo Commercial [id number] Self [id number] UNHC COMMUNITY PLAN MCDO [id number] SP [id number] UNHC COMMUNITY PLAN MCDO [id number] SP [id number] [facility] Hmo Commercial Self U/HC Medicaid Comm Plan Commercial Self MEDICAID [id number] SP [id number] [facility] [place] Community Plan Commercial Self [facility](MCAID) O [id number] S [id number] [facility] [id number] SP [id number] SELF PAY UNAVAILABLE SP UNAVAILA BLE OTHER1 [id number] S [id number] MEDICAID [id number] S [id number] [facility] OFFICE OF MENTAL HEALTH [id number] S [id number] MEDICAID [id number] S [id number] [facility] OFFICE OF MENTAL HEALTH [id number] S [id number] OTHER1 [facility] [id number] Problems, Conditions, and Diagnoses Code Display Name Description Problem Type Effective Dates Data Source(s) N18.31 Chronic kidney disease, stage 3a Chronic kidney disease, stage 3a Problem 04/29/2020 12:00:00 AM EST eCW1 ([facility]) F31.0 Bipolar disorder, current episode hypoma delgado Bipolar I Disorder, Current or most recent episode hypomanic Condition 04/20/2020 12:00:00 AM EST [facility] ([facility]) M75.42 [id number] Impingement syndrome of left shoulder Pro blem 03/03/2020 12:00:00 AM EST eCW1 ([facility]) 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 ED (erectile dysfunction) Problem 03/03/2020 12:00:00 AM EST eCW1 ([facility]) F31.4 Bipolar disorder, current ep isode depressed, severe, without psychotic features Bipolar I Disorder, Current or most recent episode dep ressed, Severe Condition 01/27/2020 12:00:00 AM EST [facility] ([facility]) F31.12 Bipolar disorder, current ep isode manic without psychotic features, moderate Bipolar I Disorder, Current or most recent episode man ic, Moderate Condition 01/27/2020 12:00:00 AM EST [facility] ([facility]) K11.5 [id number] Sialolithiasis of submandibular gland Pro blem 09/09/2019 12:00:00 AM EDT eCW1 ([facility]) 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, extranodal and solid organ sites Unspecified b-cell lymphoma, extranodal and solid organ sites Diagnosis 02:51:33 PM [facility] R45.851 Suicidal ideations Suicidal ideations Diagnosis 08/2019 05:05:45 PM EDT [facility] Psychiatric Evaluation Psychiatric Evaluation Diagnosi s 11/09/2019 04:27:24 PM EDT [facility] ems other ems other Diagnosis 11/09/2019 04:27:24 PM ED T [facility] suicidal ideations suicidal ideations Diagnosis 0 08:24:00 AM T [facility] Surgeries/Procedures Procedure Description Date Indications Data Source(s) [facility] Telemed E/M Lvl 3--Est pt 04/20/2020 12:00:00 AM EST - 04/20/2020 12:00:00 AM EST [facility] ([facility]) [facility] Telemed E/M Lvl 3--Est pt 04/20/2020 12:00:[address] [facility] ([facility]) OFFICE OUTPATIENT VISIT 15 MINUTES 03/23 12:00:00 AM EST - 03/23/2020 12:00:00 AM EST [facility] ([facility]) OFFICE OUTPATIENT VISIT 15 MINUTES 03/23/2020 12:00:00 AM EST [facility] ([facility]) OFFICE OUTPATIENT VISIT 15 MINUTES 02/23 12:00:00 AM EST - 02/24/2020 12:00:00 AM EST [facility] ([facility]) OFFICE OUTPATIENT VISIT 15 MINUTES 02/24/2020 12:00:00 AM EST [facility] ([facility]) OFFICE OUTPATIENT VISIT 15 MINUTES 01/26 12:00:00 AM EST - 01/27/2020 12:00:00 AM EST [facility] ([facility]) OFFICE OUTPATIENT VISIT 15 MINUTES 01/27/2020 12:00:00 AM EST [facility] ([facility]) OFFICE OUTPATIENT VISIT 15 MINUTES 12/29 12:00:00 AM EDT - 12/30/2019 12:00:00 AM EDT [facility] ([facility]) OFFICE OUTPATIENT VISIT 15 MINUTES 12/30/2019 12:00:00 AM EDT [facility] ([facility]) Psychiatric Diagnostic Evaluation with Medical Services 12/02/2019 12:00:00 AM EDT - 12/02/2019 12:00:00 AM EDT [facility] ([facility]) Psychiatric Diagnostic Evaluation with Medical Services 12/02/2019 12:00:00 AM EDT [facility] ([facility]) OFFICE OUTPATIENT VISIT 15 MINUTES 11/26 12:00:00 AM EDT - 11/27/2019 12:00:00 AM EDT [facility] ([facility]) OFFICE OUTPATIENT VISIT 15 MINUTES 11/24/2019 12:00:00 AM EDT [facility] ([facility]) HEMATOPATHOLOGY HEMATOPATHOLOGY Routine 10/16/2019 1:11 PM EDT 10/16/2019 01:11:00 PM [facility] FLOW CYTOMETRY CELL CYCLE/DNA SWEETIE LEUKEMIA / LYMPHOM A PHENOTYPE, PERIPHERAL BLOOD Routine 10/16/2019 1:11 PM EDT 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 10/16/2019 01:11:00 PM EDT 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 [facility] 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 PROTEIN TOTAL XCPT REFRACTOMETRY URINE PROTEIN ELECTROPHORESIS, URINE Routine 10/16/2019 1:11 PM EDT 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 10/16/2019 01:11:00 PM EDT 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 [facility] 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 BLOOD COUNT COMPLETE AUTO&AUTO DIFRNTL WBC COUNT CBC AND DIFFER ENTIAL STAT 10/16/2019 1:11 PM EDT 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 10/16/2019 01:11:00 PM EDT 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 [facility] 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 PROTEIN XCPT REFRACTOMETRY SERUM PLASMA/WHL BLD PROTE IN ELECTROPHORESIS WITH SERUM TOTAL PROTEIN Routine 10/16/2019 1:11 PM EDT 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 10/16/2019 01:11:00 PM EDT 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 [facility] 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 LACTATE DEHYDROGENASE LDH LACTATE DEHYDROGENASE Routine 10/16/2019 1:11 PM EDT 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 10/16/2019 01:11:00 PM EDT 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 [facility] 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 ECHO TTHRC R-T 2D W/WOM-MODE COMPL SPEC&COLR DOP 10/06 12:00:00 AM EDT [facility] ([facility]) INTERROGATION EVAL IN PERSON 1/DUAL/BENEFIT DIRECTOR LEAD PM 2019 12:00:00 AM EDT [facility] ([facility]) ECG ROUTINE ECG W/LEAST 12 LDS W/I&R 08/19/2019 12:00: 00 AM EDT [facility] ([facility]) MHC Telemed E/M Lvl 3--Est pt 08/04/2019 12:00:00 AM EDT - 08/04/2019 12:00:00 AM EDT [facility] ([facility]) MHC Telemed E/M Lvl 3--Est pt 08/04/2019 12:00:00 AM E DT [facility] ([facility]) DEBRIDEMENT NAIL ANY METHOD 6/> 07/31/2019 12:00:00 AM EDT [facility] ([facility] MHC Telemed E/M Lvl 3--Est pt 07/07/2019 12:00:00 AM EDT - 07/07/2019 12:00:00 AM EDT [facility] ([facility]) MHC Telemed E/M Lvl 3--Est pt 07/07/2019 12:00:00 AM E DT [facility] ([facility]) TEMPMHCTelemed 20" psychotherapy 020 12:00:00 AM EDT - 06/27/2019 12:00:00 AM EDT [facility] ([facility]) TEMPMHCTelemed 20" psychotherapy 06/27/2019 12:00:00 A M EDT [facility] ([facility]) MHC Telemed E/M Lvl 3--Est pt 06/09/2019 12:00:00 AM EDT - 06/09/2019 12:00:00 AM EDT [facility] ([facility]) [facility] Telemed E/M Lvl 3--Est pt 06/09/2019 12:00:00 AM E DT [facility] ([facility]) FLOW CYTOMETRY CELL CYCLE/DNA SWEETIE LEUKEMIA / LYMPHOM A PHENOTYPE, PERIPHERAL BLOOD Routine 04/17/2019 1:57 PM EST 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 04/17/2019 06:57:00 PM EST 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 [facility] 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 BLOOD COUNT COMPLETE AUTO&AUTO DIFRNTL WBC COUNT CBC AND DIFFER ENTIAL STAT 04/17/2019 1:57 PM EST 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 04/17/2019 06:57:00 PM EST 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 [facility] 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 PROTEIN ELECTROPHORETIC FRACTJ&QUANTJ SERUM PROTEIN E LECTROPHORESIS WITH SERUM TOTAL PROTEIN Routine 04/17/2019 1:57 PM EST 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 04/17/2019 06:57:00 PM EST 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 [facility] 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 LACTATE DEHYDROGENASE LDH LACTATE DEHYDROGENASE Routine 04/17/2019 1:57 PM EST 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 04/17/2019 06:57:00 PM EST 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 [facility] 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 HEMATOPATHOLOGY HEMATOPATHOLOGY Routine 04/17/2019 12:00 AM EST 04/17/2019 05:00:00 AM [facility] OFFICE OUTPATIENT VISIT 15 MINUTES 04/14 12:00:00 AM EST - 04/14/2019 12:00:00 AM EST [facility] ([facility]) OFFICE OUTPATIENT VISIT 15 MINUTES 04/14/2019 12:00:00 AM EST [facility] ([facility]) Brief Individual Psychotherapy - 30 min 03/21/2019 12:00:00 AM EST - 03/21/2019 12:00:00 AM EST [facility] ([facility]) Brief Individual Psychotherapy - 30 min 03/21/2019 12: 00:00 AM EST [facility] ([facility]) DEBRIDEMENT NAIL ANY METHOD 6/> 03/19/2019 12:00:00 AM EST [facility] ([facility] PROGRAM EVAL IMPLANTABLE IN PERSN DUAL LD PACER 2019 12:00:00 AM EST [facility] ([facility]) Results ID Date Data Source [facility] Shoulder, complete 03/12/2020 12:00:00 AM EST eCW1 ([facility]) Name Value Range Interpretation Code Description Data Jing rce(s) Supporting Document(s) [facility] Shoulder, complete eCW1 ([facility]) ID Date Data Source [id number] 12/01/2019 02:06:54 PM EDT [facility] Name Value Range Interpretation Code Description Data Jing rce(s) Supporting Document(s) Progress Notes [facility] JDOKZs8dLdXZDrYn09/XXMwaUWAxa0NuARuiRPg5NAcgEZHwK3YaMOP5rR2wAJS4EOoADjWdIwXzCMC5 lbm [file] 9GDQo= ID Date Data Source [id number] 12/01/2019 02:06:44 PM EDT [facility] Name Value Range Interpretation Code Description Data Jing rce(s) Supporting Document(s) Progress Notes [facility] PSKPQj9sNgDCYbGr97/AZVekPZZup0FhRHhdMXx9IAmsTKUxO2JxZEG1sW5eGTQ4ZJsMZaMjKvUhOQQ4 lbm [file] EPBhUqZ9HNR3RoJqRUKbHrGeOtBnDU0PCh4ZYfC2FNP7kAUhYt7RJublXszDYcBiYI7ZVSy= ID Date Data Source [id number] 11/25/2019 08:45:39 AM EDT [facility] Name Value Range Interpretation Code Description Data Jing rce(s) Supporting Document(s) H&P [facility] NBLYKq1hVnOPXuHg75/NPXkiKOSzj0AnMMseZBf1BQcdNFTzV0MwLUB6hU8qWDW4XAsIBsUmWjAdUVAg lbm [file] DsjfRKAcUdVjNX8HLu9GAjZ0HII6lGKqUm8RKjTaGTvQYeFsCY2WIXf= ID Date Data Source [id number] 11/25/2019 08:31:03 AM EDT [facility] Name Value Range Interpretation Code Description Data Jing rce(s) Supporting Document(s) Discharge Summary [facility] ICLVLs6jUdIVFbRq17/DVArsBEXqw9MkTCuxNEf2OTxhRVCjX1HyPXP2uZ9aMHA2UFsYXaMtWwVuSYYh lbm [file] amLFRGBn8N ID Date Data Source [id number] 11/14/2019 10:36:42 AM EDT [facility] Name Value Range Interpretation Code Description Data Jing rce(s) Supporting Document(s) Progress Notes [facility] JTAWNs1sMdLLEyCi35/XEHgiRDWln5TuBAhtHKb9TCmwXMFhE8GkWIL0gF4yHLN8MFjTIoGqXqPnAEOi lbm [file] ICAgICAgICAgICAgICAgICAgICAgICAgICAgICAgICAgICAgICAgICAgICAgICAgICAgICAgICAgICAg ICAgICAgICAgICAgICAgICAgICAgICAgDQogICAgICAgICAgICAgICAgICAgICAgICAgICAgICAgICAg ICAgICAgICAgICAgICAgICAgICAgICAgICAgICAgIC AgICAgICAgICAgICAgICAgICAgICAgICAgICAgICAgICAgDQogICAgICAgICAgICAgICAgICAgICAgIC AgICAgICAgICAgICAgICAgICAgICAgICAgICAgICAgICAgICAgICAgICAgICAgICAgICAgICAgICAgIC AgICAgICAgICAgICAgICAgDQogICAgICAgICAgICAg ICAgICAgICAgICAgICAgICAgICAgICAgICAgICAgICAgICAgICAgICAgICAgICAgICAgICAgICAgICAg ICAgICAgICAgICAgICAgICAgICAgICAgICAgDQogICAgICAgICAgICAgICAgICAgICAgICAgICAgICAg ICAgICAgICAgICAgICAgICAgICAgICAgICAgICAgIC AgICAgICAgICAgICAgICAgICAgICAgICAgICAgICAgICAgICAgDQogICAgICAgICAgICAgICAgICAgIC AgICAgICAgICAgICAgICAgICAgICAgICAgICAgICAgICAgICAgICAgICAgICAgICAgICAgICAgICAgIC AgICAgICAgICAgICAgICAgICAgDQogICAgICAgICAg ICAgICAgICAgICAgICAgICAgICAgICAgICAgICAgICAgICAgICAgICAgICAgICAgICAgICAgICAgICAg ICAgICAgICAgICAgICAgICAgICAgICAgICAgICAgDQogICAgICAgICAgICAgICAgICAgICAgICAgICAg ICAgICAgICAgICAgICAgICAgICAgICAgICAgICAgIC AgICAgICAgICAgICAgICAgICAgICAgICAgICAgICAgICAgICAgICAgDQogICAgICAgICAgICAgICAgIC AgICAgICAgICAgICAgICAgICAgICAgICAgICAgICAgICAgICAgICAgICAgICAgICAgICAgICAgICAgIC AgICAgICAgICAgICAgICAgICAgICAgDQogICAgICAg ICAgICAgICAgICAgICAgICAgICAgICAgICAgICAgICAgICAgICAgICAgICAgICAgICAgICAgICAgICAg GZBwXXEgTJPvZMByKXCsOGXgOGNjRUQiFBRfHISiCVDyHMf8C6rpIRUbTZRmLY1pTZw8Wl1+DQoNCmVu WRN4fdMhxL6VIB2ap1VwVXnbWNWwe3HcIFg2IS5CKY ZsBKbnYE8TMYxpwy2QJRZmQNIzeIAYs3hgSiTvVOT5SRHqNinmDK3WOSUxP9dmajMrLLRbKBRVNO3SOd AeW3KsrX10POGQDu5+BOqzulZjKflNAqX2HQLme7EcBHa0BP8TBGTgQtswe0VkEmRvHEFGBQftSH2SMY A1QLN5WMViSk3EOGHsL910nfJoWD9HFn7FKhPkNY2t bt4MMwSrNUHvQnrHPub5HYthWC7HhDHvINbQev7nqgWpgmHZo8JvfrYouOXTaTcaZOCyCR5yh4Enma25 eZwnFFUnCA6hAZ1fINJwGUTbBqOmMQOYFN5WHTNrFWLzwEPsLDLvYJVMDF1PTFzfASR7KzrfrzTxmQZm OUjdUX5FCZQxdbPtSoJsCQAXTOx+Yg5NLK5tz7PqJP nqAdApEC8buu3SXWxAOgVkI7O9sNXoA2T4RAlkQk9SUGYaSWVfBvDxVZXGEYpaUQ0CTO9kakI6XV4AdV XgDPNsMTHbyUPbPAp4C39smRYzNZmmYY7SECA+Rambo+Mt8YAMOiMXZmBLTkFrXzHJJJGdNjW1UxM2VJr6 YnY6OfLL29mMzqopQoGKgwRI4WSP7lWDYdDFMCWU0L yRQlvC5lvaBgSXUmCKGDFfDiN86ryFWrUBZwUEE1NCFgPw7FEJMqN2UrxuXypTrukoLcRZOgJNHXXS6A QAmyspTyyBNvsMrkIP64mYoiZY7OQn8NDgYtEV7lzd6CmXRuSi5IHCDjLX2ZURExRZFfZJInLBC8PLFq PbMsJLdsEMMgCGJgVRY5WXTgOWQnMM9FVvZbPKDeCt E5ARZuVCVgYBBxcq8BEPDfDJHuPnR6NYKlPPRiEDSbGWbqCQYvJPNmQAN0DPFrLXFdVY2VNlKiBSGsEY Y2CnQoWNOlNKXxpx2VZFZiABElTouxCOKdBWBtJKCxBSeaEHQnYUJtTol5SNBcENRfPC8WYfZqVAVxFZ O9NFqiQNQbXNVicg1HQINmIVViDUA1OsYhJFOtYVOz SGcaUIAwPBP2XDKvXBMxJGGcVC8LUeQdHWVfKOEkQxxaPMRjCIMlfb2RAMMtPPHxLVKnTGSkXZFjHOMg GIfoYYFeAHR3VCkaMAEvYUOjPC2ZTlZnIHWwOGtuNEVnTHAuNRJrqb1XWEEdURDsROJ6FPXpYGNzWCLz NMbuYOTsDGL4GfN9UOXoVOPuLX1GWfYhLPExUYd0OJ EgOCKaOVQysp9QTWUbFJQoIGaaNNOiZGFkXSNiTTzmGWGuPUL9HFW1PCCmJRLeGU1VAqSrMPMtYaTkCG XqNHPdTVDdti8PNJFxUALzPNPnJUFdWLPeMSVtMRhaMJMoDFTfDlOfLEMiIILcUT1WHlQjYDQqWxWcDW AfGVPgRPJjrm1NSGGwULJmQGegHAVhJTVkIXUxMBjm XVVbBEEsLsNnGSCgUQQiJV5RUaXyUXGlAaCyExWfWSDyXNEvdr3ZKNChOOMdNeM2FbGjIQEhCBDjQKo6 nyDgfCKiRKa6WM4CB5WrekTfZpsRVm2Oi305DJW2PYZkUh6AE4vyKg2fDVTiOGIJGh2QMIa8KKDsSIKi ZUK9XpR9BLQnNhT4H5WiPMK9VFWtBtxpQpU+IDw4YW E7LJQpTAIcXMwcCPMrTNtqLZObUsK2ZQE2TVS0AY2zTHOQNi9+CIqzwDYxxTyrRQAANqIkMdP8XFyjFN VPRg0K ID Date Data Source [id number] 11/13/2019 03:43:47 PM EDT [facility] Name Value Range Interpretation Code Description Data Jing rce(s) Supporting Document(s) Care Plan [facility] GWOBZj0nJeHZZmMx20/SPKgiIUFek9SnITmlCDr0NVynPBGqJ4UfFPN0sZ8sSDM1WFfRTxVaEyNzYSQy lbm EzIonJMbZhDAAtTtjRQnMeYFpnZdojwACtUL5XnNU0VPIyG84jYJLfDQNuM9IiTFHkPyH+Xk9GXALetH JuRG5FWokV3Znxy9a8HX2uoG+Gf5aOYoGxX1bEBDVmz7KV63OLxDq3H82sh+1zh0FsQforQ5jOuf5Q/d RCOeyl1bjZGGE/43F4kAyjLzn/78WpjqWUovq//can cutter [file] AgICAgICAgICAgICAgICAgICAgICAgICAgICAgICAgICAgICAgICAgICAgICAgICAgICAgICAgICAgIC AgICAgICAgICAgICAgICAgICAgICAgICAgDQogICAgICAgICAgICAgICAgICAgICAgICAgICAgICAgIC AgICAgICAgICAgICAgICAgICAgICAgICAgICAgICAg ICAgICAgICAgICAgICAgICAgICAgICAgICAgICAgICAgICAgDQogICAgICAgICAgICAgICAgICAgICAg ICAgICAgICAgICAgICAgICAgICAgICAgICAgICAgICAgICAgICAgICAgICAgICAgICAgICAgICAgICAg ICAgICAgICAgICAgICAgICAgDQogICAgICAgICAgIC AgICAgICAgICAgICAgICAgICAgICAgICAgICAgICAgICAgICAgICAgICAgICAgICAgICAgICAgICAgIC AgICAgICAgICAgICAgICAgICAgICAgICAgICAgDQogICAgICAgICAgICAgICAgICAgICAgICAgICAgIC AgICAgICAgICAgICAgICAgICAgICAgICAgICAgICAg ICAgICAgICAgICAgICAgICAgICAgICAgICAgICAgICAgICAgICAgDQogICAgICAgICAgICAgICAgICAg ICAgICAgICAgICAgICAgICAgICAgICAgICAgICAgICAgICAgICAgICAgICAgICAgICAgICAgICAgICAg ICAgICAgICAgICAgICAgICAgICAgDQogICAgICAgIC AgICAgICAgICAgICAgICAgICAgICAgICAgICAgICAgICAgICAgICAgICAgICAgICAgICAgICAgICAgIC AgICAgICAgICAgICAgICAgICAgICAgICAgICAgICAgDQogICAgICAgICAgICAgICAgICAgICAgICAgIC AgICAgICAgICAgICAgICAgICAgICAgICAgICAgICAg ICAgICAgICAgICAgICAgICAgICAgICAgICAgICAgICAgICAgICAgICAgDQogICAgICAgICAgICAgICAg ICAgICAgICAgICAgICAgICAgICAgICAgICAgICAgICAgICAgICAgICAgICAgICAgICAgICAgICAgICAg ICAgICAgICAgICAgICAgICAgICAgICAgDQogICAgIC AgICAgICAgICAgICAgICAgICAgICAgICAgICAgICAgICAgICAgICAgICAgICAgICAgICAgICAgICAgIC CxAEKpPXHcZEZfAIGsYVQjDVPlZTImPGVqSDJbGFWsVWEhXTf3H6jqLFZyUKXxNX2tCKq6So9+DQoNCm UkHHG7ikBkhS1ULL9vm0AaZDlvEQOem2PbNEg2FF2M IHTrBGhlLH3YDVythy0FWCSkDMCinRMBp4trBaMxKUU8WAUlYmxjML9NTPBgT6jckrInEDYwSXGNWHdv JJXZZK7SAoDdI6KhiL06KRMRHs3+YBhyteYpTbqQFrY8CSVra4UeSAz3MB1JUPKxEpwfe7OyJpnkVPDI OXvfFK0DIAL4ZDQ9ZBFiTv7FFQWlF298zwYsPA8GOa 9SAkTeSQ0zbu2DAocaULJgGzsOQql7UAnzVY6EyNWjKIuDAOJdZGPyJR3iNfcvQ4RsokhbVl7tWEmgIf 7rDJDfCF2iEZ5oAHCmMIKaBsNrYPLFYQ4RPIAaZGQqwNViKEQcPHUMMI4MECsyBWB7OkljuvFkcZYpQS enJP5CCIUoehEcRgblTRBHRMp+Ut9CUZ6po0AaYJev PZKrOA7iag6VPSjEEcPcV6R8fHHxA0O9GDzwHz8YLAYhEQUfKhSlPOIWCYxzBO0UQI7dswX4XZ4VpVUf RUIvWEAqoJUpAJc7X28ofGFfONrcLX7OKRV+Rambo+Rd8WYGOsLXLkLTJtJlNhLYGSJfJmV1ImN1KZs7Ff X3RnEG62mJzwzrBtCZylNK5BIS8fEQNkHOBNPE2LgX TobS3mnwIhMbWqUDUNHbKwA27bpRFzSUPyXAF6ISWuMt2IPTDzN4AemqSxzAtkpmQmZOEeAFTZOX1MOR troyTmsJPaoQjqSD77tAsoVC4ZGt0ATyEoVP9cgt3ZjLQzTb2DQHJfOO0DTLZcYVYuNRJsNJE2KKOcUr KiSJhiFQMtVEOfZFE7FCWpBJKaXT1KPnGrKUDjTfA9 JhMeQXNaUHFvrl5QXUGqVMPdOgEoBZYxISTuOUFzXHirGKAdJRQsREZ3GSEvZBTgDV7UDzAmIEJwTKE6 WGGkOQAmSZKmyt9REDNwVZNvQfPdDEDsNQVtLAQuJOaqMXJmUOBvDUmkXXCpNYXfPB4JWbNxIBUpZYMs JhuaIKRnGEGccv7DDLBoHRPwXMFjYBLfLKYsPWPqUV izEVCrTNW7UHE9FLXrGBOwWB6USdPiHGKqTDI3ZqVyQIKsOUPsny6DYECpCGAeXNX4QsLuQZUfQGNhKB rsSFWhAYE9Wrb7IBTkCQPrGG9ZRlCwVPMdRPF0ZtYeYKAqYGFoaz3QLVHwUMGaPYMpMGLwFMPoTNIdDH xlIHFfRWD6YsI5HIFbFAFvYY6VLwMwKZBcNAq7TfVn PXHvBLVbfw5ANKDtSSCySIH6RdYhNULqNDMsBZuhDONtXWK1KjMvLHWxEVNqSS1CCsKiEZOeAkGqAoGk MMLcRPNssy4IRRHdACFeGXC5SlWmSZFyCTKiRLedXFIqEYUtSZV4EHQoPWXjAI8ZRfWhVGEbSdK7MDVu SQYyTIEkmf1ERISmEIIjWAH7SDPpJMXyOJFwBVsaNL WsMVWmGHB6PMQhQAAlFH6CWaAbLAIrPqVhKGGoVGUxRPDjwf9YZVNcQYMeFgplOEKdLNJbSKUcGRelNS ItYQXgNdn8YKVgPKBbCG0LRlSqPCIoZnU3PzBjGUChYELjne1RyTBbwDsjmj3EXHmRLz1YqCcyCRTcTC iuOr4skOMjKMEfKSGALh4FxrFwZVTdVMGFMNatGTQz FIP7VryhHZHrXXQpJDO9BVOkVrPsK7CkIfUrJGLyNdRoKwW7QzWiE5NxJMYdPQW1Pvg9BMDfR3JtGRQa ZGQxNGVmZmY+HV4yQPe+Kt3Ac1ShlzT2wjGtZVjxXIL6QB4WXMCGK1WFSj== ID Date Data Source [id number] 11/13/2019 10:35:40 AM EDT [facility] Name Value Range Interpretation Code Description Data Jing rce(s) Supporting Document(s) Individualized Overall Plan of Care Note [facility] BPCNXg6jFiVKVyEa67/PXCleQMIvw3QdUMacXLp1BSeqLAPjR1VaVJM3lP0cHFB2IMlPXoZuRxDcYSDu lbm [file] AgICAgICAgICAgICAgICAgICAgICAgICAgICAgICAgICAgICAgICAgICAgICAgICAgICAgICAgICAgIC AgICAgICAgICAgICAgDQogICAgICAgICAgICAgICAg ICAgICAgICAgICAgICAgICAgICAgICAgICAgICAgICAgICAgICAgICAgICAgICAgICAgICAgICAgICAg ICAgICAgICAgICAgICAgICAgICAgICAgDQogICAgICAgICAgICAgICAgICAgICAgICAgICAgICAgICAg ICAgICAgICAgICAgICAgICAgICAgICAgICAgICAgIC AgICAgICAgICAgICAgICAgICAgICAgICAgICAgICAgICAgDQogICAgICAgICAgICAgICAgICAgICAgIC AgICAgICAgICAgICAgICAgICAgICAgICAgICAgICAgICAgICAgICAgICAgICAgICAgICAgICAgICAgIC AgICAgICAgICAgICAgICAgDQogICAgICAgICAgICAg ICAgICAgICAgICAgICAgICAgICAgICAgICAgICAgICAgICAgICAgICAgICAgICAgICAgICAgICAgICAg ICAgICAgICAgICAgICAgICAgICAgICAgICAgDQogICAgICAgICAgICAgICAgICAgICAgICAgICAgICAg ICAgICAgICAgICAgICAgICAgICAgICAgICAgICAgIC AgICAgICAgICAgICAgICAgICAgICAgICAgICAgICAgICAgICAgDQogICAgICAgICAgICAgICAgICAgIC AgICAgICAgICAgICAgICAgICAgICAgICAgICAgICAgICAgICAgICAgICAgICAgICAgICAgICAgICAgIC AgICAgICAgICAgICAgICAgICAgDQogICAgICAgICAg ICAgICAgICAgICAgICAgICAgICAgICAgICAgICAgICAgICAgICAgICAgICAgICAgICAgICAgICAgICAg ICAgICAgICAgICAgICAgICAgICAgICAgICAgICAgDQogICAgICAgICAgICAgICAgICAgICAgICAgICAg ICAgICAgICAgICAgICAgICAgICAgICAgICAgICAgIC AgICAgICAgICAgICAgICAgICAgICAgICAgICAgICAgICAgICAgICAgDQogICAgICAgICAgICAgICAgIC AgICAgICAgICAgICAgICAgICAgICAgICAgICAgICAgICAgICAgICAgICAgICAgICAgICAgICAgICAgIC VzFSJsSYXmCBMhSFMfKLZoQGHoSEUcQJn0H2opJSTu GDByBN9wYJb6Rz7+YTbEOgMzEBX0kiZgcP2NAJ2sw6FyBFfaFZRfm7TmDTm6RR5SLDCiHYtkBC0XAJiq hv7KFEFhFGZkiZFCa3auNxBuOBI2QNBjGzmiQM7QVYKiL9vqocEcCFHoFUSMSC5POoCcU1PiuN80NZBH Cj4+WKdcivYcDdnZGlBuXGLre4CsUWc3ES2YMFCmLn gim9XrYxPiMTZLLNyeSV4LSTY5ZSIvWFKzFj8NZCBhF623jjPzXQ2YEd8VZmMyNB6rjb3DAcOcTWWwRj hGUcx6GQbtZU7LnXBaRFlSbxPtujxipWUolKnpPPEKamIjOBwqUWUyOO9re4ClI4HqQFQOo7FbAVK3UR fmvXbhQPF2bj6sOLibSApES5gyOBHfDT6oKD5ePKKv YCAnWhJdWHTJTY8JDDAdPETwjJBiOLCnFRTUOD5UEMzfZNS5JwsxcsVvkQWlEUabJC1JDDAqrbMyOeMd MCBSDQo+Pi1YAT1jz7ZpAUjrWNGzEE4uio7QPOaHOaYbH0O8bLClL6H4LYniDe6OHUWiSJUdLkBxYGKG LFloQL1FAQ4rmqM6LA8OfZCzGPWiANQesXKvSCh3P8 1mvEPjRVhvYU1QDTP+Rambo+Cs7VCNCmVTZfQJVnNuGrTTSDIdDtY2DiQ8SGq2BnY3RrNJ05kLtjvxArCN ojCK1JKZ4aNTUdVPUOKS8KaQVvgX0upsAaRxVbHHWNCyCeU45msORlBBIkWANuXBHtZr9ZNBYbH6Ibrl VqkQsuxcKjERSeLPWLPL1ZLThdwxRmmVFjjQynHQ40 hDaaTZ7QKo8DNsAvLS7nbi6MvUAnAc2BTIRaLS7USBXfDSXkMRGmEJJ9TCAqWnNbCTieQMFfLBEiCGK2 MNHjEYCrWV9HSkQaENGkCZn1VEQdGSEjYUWuds1ZGBWyWJTmAAIoUvUmIPNfNGFpHAdeZQFxZWDnNOT9 ACYzTZHtVQ4GBdAkQOKgOVHyMnWqFMEcGASsjm0MYH DkTUZyLTLwYSPiNTWrGJYrCItbEPDoHBPiKtm9BJLmAWTbNW0OMvUgGKZiCTC9XDjkFGBjEQKmfy2GMI PmKNGqVpK9LxYpBOPtMNIzDSflVTOzLVSnGlFaZDTrDQWwSK8EWoGrQCIzKKE3EobdNIXsJPJlbf0PLQ PxYMDkHDEoAHUsETVoWCUcZPkhPSVrISS0TmT1SWBp UVWzRH3FPoCxCCPiDQR1PXMlRUNpVILngs4DZMSpABEtBag7CCGuMJLwVPUkGZehVKSlSXA0NGM6VKRd NKFpCP7UUmKpQPQrWXzkPZBzLRDvHXSijy3EKHZaGCHuHUOcTxJcLDYsBLCrGJjuIDQxQFS9QUS2GUPj SCYbHX5JXbEkEPWvMYf9DSUoHZYgNUVrje3RMSNlJY GnXBx1UtFeBQCwKAPyUAiqPMPyJEFjFYA2YHOfJLDdXJ1LQgSzJZGvCuQ0QAUkGFMvJXUbhk3ROMTvPW MkEAA5AXDmAULaZELjPSa8flBldRYxPTr7IH5XR1LqgwDrZdEXYe6Jl417FQG3FPAfOt7OT1uyId6hQR RdOLJLRa5HNKz2IDG4NaNbSaL2UXDcNgWkGdDjZod6 OCD8HItsPLzbKrT+YWvmXmxyVUAoMLbiEiI9LJG4OrRaTvQnCmmcJ4EzXMHdCH4bOVGMZv3+DQpzdGFy gDwhYHSDVcVcOYG9VUxkIKJMIy6N ID Date Data Source [id number] 11/13/2019 08:29:55 AM EDT [facility] Name Value Range Interpretation Code Description Data Jing rce(s) Supporting Document(s) Progress Notes [facility] LHIOTx2oPnXYPlJk50/CGRpsIOKdf1ZrDPixHSr2GOsqINKgB6NrMQZ4yW2wSZH8GFzATuAxNaAaIAMr lbm [file] ID Date Data Source [id number] 11/13/2019 05:11:42 AM EDT [facility] Name Value Range Interpretation Code Description Data Jing rce(s) Supporting Document(s) Nursing Note [facility] XAILPu7gTrCTHdAr94/PJCzfBMMqb2ZdFJvdFOf3PPgyMZLwZ7HcVFD6nI4vKDQ1ZYwSAhDuXoYmSLAc lbm [file] ID Date Data Source [id number] 11/12/2019 09:27:13 PM EDT [facility] Name Value Range Interpretation Code Description Data Jing rce(s) Supporting Document(s) Care Plan [facility] NVNOBk8qRmDKIlOi04/ICGdkAHCwr5BzOQgcAIu5LDhfDOWpX2HjKDA5jP6jQQC1HQcGSxJsZkQuPXC8 lbm [file] ICAgICAgICAgICAgICAgICAgICAgICAgICAgICAgICAgICAgICAgICAgICAgICAgICAgICAgICAgICAg ICAgICAgICAgICAgICAgICAgICAgICAgICAgICAgICANCiAgICAgICAgICAgICAgICAgICAgICAgICAg ICAgICAgICAgICAgICAgICAgICAgICAgICAgICAgIC AgICAgICAgICAgICAgICAgICAgICAgICAgICAgICAgICAgICAgICAgICANCiAgICAgICAgICAgICAgIC AgICAgICAgICAgICAgICAgICAgICAgICAgICAgICAgICAgICAgICAgICAgICAgICAgICAgICAgICAgIC AgICAgICAgICAgICAgICAgICAgICAgICANCiAgICAg ICAgICAgICAgICAgICAgICAgICAgICAgICAgICAgICAgICAgICAgICAgICAgICAgICAgICAgICAgICAg ICAgICAgICAgICAgICAgICAgICAgICAgICAgICAgICAgICANCiAgICAgICAgICAgICAgICAgICAgICAg ICAgICAgICAgICAgICAgICAgICAgICAgICAgICAgIC AgICAgICAgICAgICAgICAgICAgICAgICAgICAgICAgICAgICAgICAgICAgICANCiAgICAgICAgICAgIC AgICAgICAgICAgICAgICAgICAgICAgICAgICAgICAgICAgICAgICAgICAgICAgICAgICAgICAgICAgIC AgICAgICAgICAgICAgICAgICAgICAgICAgICANCiAg ICAgICAgICAgICAgICAgICAgICAgICAgICAgICAgICAgICAgICAgICAgICAgICAgICAgICAgICAgICAg ICAgICAgICAgICAgICAgICAgICAgICAgICAgICAgICAgICAgICANCiAgICAgICAgICAgICAgICAgICAg ICAgICAgICAgICAgICAgICAgICAgICAgICAgICAgIC AgICAgICAgICAgICAgICAgICAgICAgICAgICAgICAgICAgICAgICAgICAgICAgICANCiAgICAgICAgIC AgICAgICAgICAgICAgICAgICAgICAgICAgICAgICAgICAgICAgICAgICAgICAgICAgICAgICAgICAgIC AgICAgICAgICAgICAgICAgICAgICAgICAgICAgICAN CiAgICAgICAgICAgICAgICAgICAgICAgICAgICAgICAgICAgICAgICAgICAgICAgICAgICAgICAgICAg ICAgICAgICAgICAgICAgICAgICAgICAgICAgICAgICAgICAgICAgICANCjw/oUFtG5tgePGfgjZ0L1jj Fm6PIq2YIC6bh0DeDGDeOZlmxiYrLpvFVjQgISNrZf fZKqk8HJzhFH6FaOSpB7IgB3WhCHdxOY7MJCGqEFPklHChLMNlRFUdShS1LVRzPZmyNG9CgZFuZLcqNR YvMLLsXT4BALTuN647psWvNI5RPf7DOxAbJU9ywz1JSrBzZHDcFeqVYft9NSfqWJ3SzPKfhDFoTjUtZQ VCHwYdQ2mrc2XwSrLfLIXJUXfwYV5Ai4CsuPIdLDd+ Yc0QTQ1rx7GwYXdlHsFcHU3gov7NDKzBTvYzJ7EliEbsSNGgigHlDXhejtLqkADHxehhXHLlozFsaufm Nd4eQTAtAN96VoOnVcIeCEf0KlYlPL9fHHakMT3KGOI0ZUovGZBaLREkM6tJEvAbHSzwVZZszZoqDN0B CgObN7OikhGxsOZdFuYeWLXQMh3+DQplbmRvYmoNCj C0LLFft3CfWOm1XB6QFZBvSCuxCU5TTKDpuU8eCIpkBZ3ZNeAcGFLlQZAQXjEqE73hlWFdGSc7L7ZmAs VkZGVkRmlsZXMgPDwvTmFtZXMgWyBdDQogID4+ID4+CSnrCL4DDJapkzWbRQYbGa2VUOEkHJRtJT2vXE UoKTTsY4J4qArlXFEPGuEtZ0ylmhmsNG9wADRvR773 kDvjunIbJMSsWBKgVa1ULTIzRJS0OCFabXHuJgLjQUNDFRskWV3VbTWqRRI3wK2kGXikSDXjODHuR9lI QfKvkOcbHK19aYgqumFnjXAvNEl+Su0TLL3qq3YsGUa2xhRdTCoxORD0FGibOMZtFIWpDUFsBLZ2AYT6 CXVREgHpRQIgPNAzKLngYIXePAFvro6GCKZoVXQiCX JtGPTlQWWyGHLoIEvvZFVbLESoFXFuSLUfZUKbAT5SYhEvKIItQOTrHIwpLCUnBYKidp1GQSFzJGXgPL r5YKLpIVOuKDDrMLmiCNNsVRIqCTH4CCRiCEOyBH6EMoVrJWSjIXAbPLVrEYApWRBiyo2BCRKuSQNtKp OjPFGqOCKoJMQuDJfiYOLhMORtUBd0OSCcJXIvJH7N YpEbIYAwVEB2FOjdPMRvAVJlat4BKUYeXFWpJaZ4DMLrEYGxIODeLKxcQOLhKMDtVEU5LJSjFKNkIR5I DoQcPIYsFDVdUrBlEUDoPLMwsk1ECBToGWAiGgN5GuEgHTWdNIUaEQwmITTmMKD9UeHfUYElCALcYL3J ReIlSYKfKOL2OOGqFSQaPMAscg6HBWVrZIEzYcV0Aw IbZEJcEBMiAXwrVQFxAAN0AFP3FBQoIEGcAC7SJwHyFCGhARbvEJCnNFCwGWHzzs7EAEOxFCDmQIG0Cf TvFDSfQXXzJIfpEHVzYFZ3TXIaMFBlFFCoQV7NVzNnKAPlZgJlEVAqYLIcHMCwwl2PHZOdNTMgWJBcDg LyFDRwZLOsNQpuZOUwCQAfAYGcXGLuNNClFC5JEwOh PZtvMELBIrn8GJxoS3a6ESPfGX7OM0Fpa4RqVdCsAASGKAnlLK8vorAqNZCrZk3RU3gFGjaaZrryXLVw ONL0IoCaAbyzUTToEDH4JIs4GpAhYQMmMs7oLUPeUZQ3DDQjPvJgMvIvZBEjZkS5LYBxMNM1NPU4XsHm DdKrHW0HPy0BHsJ0LDW2wIHbPo6LWeI8NQAZZxAaZV3TLTa= ID Date Data Source [id number] 11/12/2019 08:53:26 PM EDT [facility] Name Value Range Interpretation Code Description Data Jing rce(s) Supporting Document(s) Nursing Note [facility] CQPVLa0tTvSLQtQq33/BXLnoWLHxd0PrRZkcZJb2PQblIFDgN6VlNMX6rQ0uBUK7MHbYBlDiJpAvPNL6 lbm [file] W0YrVvFU0ICz3UIwT5QOU6tORxWt2ITmO7FCzTYcJmSS8TTOq= ID Date Data Source [id number] 11/12/2019 05:17:38 PM EDT [facility] Name Value Range Interpretation Code Description Data Jing rce(s) Supporting Document(s) Care Plan [facility] IHYBEn4iQtVWVcWz18/SNIgzHWAns0LxTVswZJc7NTgbGSAtN3CeSTE6tU1hSMK2TDiPHvZdGmHaUKX5 lbm [file] ogICAgICAgICAgICAgICAgICAgICAgICAgICAgICAgICAgICAgICAgICAgICAgICAgICAgICAgICAgIC AgICAgICAgICAgICAgICAgICAgICAgICAgICAgICAgICAgICAgICAgDQogICAgICAgICAgICAgICAgIC AgICAgICAgICAgICAgICAgICAgICAgICAgICAgICAg ICAgICAgICAgICAgICAgICAgICAgICAgICAgICAgICAgICAgICAgICAgICAgICAgICAgDQogICAgICAg ICAgICAgICAgICAgICAgICAgICAgICAgICAgICAgICAgICAgICAgICAgICAgICAgICAgICAgICAgICAg ICAgICAgICAgICAgICAgICAgICAgICAgICAgICAgIC AgDQogICAgICAgICAgICAgICAgICAgICAgICAgICAgICAgICAgICAgICAgICAgICAgICAgICAgICAgIC AgICAgICAgICAgICAgICAgICAgICAgICAgICAgICAgICAgICAgICAgICAgDQogICAgICAgICAgICAgIC AgICAgICAgICAgICAgICAgICAgICAgICAgICAgICAg ICAgICAgICAgICAgICAgICAgICAgICAgICAgICAgICAgICAgICAgICAgICAgICAgICAgICAgDQogICAg ICAgICAgICAgICAgICAgICAgICAgICAgICAgICAgICAgICAgICAgICAgICAgICAgICAgICAgICAgICAg ICAgICAgICAgICAgICAgICAgICAgICAgICAgICAgIC AgICAgDQogICAgICAgICAgICAgICAgICAgICAgICAgICAgICAgICAgICAgICAgICAgICAgICAgICAgIC AgICAgICAgICAgICAgICAgICAgICAgICAgICAgICAgICAgICAgICAgICAgICAgDQogICAgICAgICAgIC AgICAgICAgICAgICAgICAgICAgICAgICAgICAgICAg ICAgICAgICAgICAgICAgICAgICAgICAgICAgICAgICAgICAgICAgICAgICAgICAgICAgICAgICAgDQog ICAgICAgICAgICAgICAgICAgICAgICAgICAgICAgICAgICAgICAgICAgICAgICAgICAgICAgICAgICAg ICAgICAgICAgICAgICAgICAgICAgICAgICAgICAgIC AgICAgICAgDQogICAgICAgICAgICAgICAgICAgICAgICAgICAgICAgICAgICAgICAgICAgICAgICAgIC YgCRLoTEChCKEvLRPnTWGuLGYiIPCpIRHcJDGdHEDqTGSeKPMsKWPkRKAuFFGuXEUzSYd5N5zwXMDjWL DeZP6yTWv6Dr9+XGpECpEsFVM4zjEfhH1FRW2np9Ra FLvySCBaj3KoOXk0TX1PKJHsILtaFH6YXJhweu4VYHCsBJHirTVJm7ewGvGbNSH7GYOlMhvvBM6RGYKv T4vhzgIkGOOaRPTKZH2EXvJcN2VzjA42YEZMGw1+HDoinoMtBdpFJsMkXTEqv8XsKJb9JQ9AYKYfSbio c7HzFdYsWHIOXImkXX7ISZR6CFXkFVUjXz2MLWUfF1 87vzXpVU1CYd4HEhIzHU7xie0FDcMeQTAlVgwNWgb3MCfeNH5ZxSFcVFqEHPElSAZrUV2mZdfmJEPmtc KGMnKavBGlMCTFAQN1EUvpKA3tYEMhOBR5BdOnMEKWCV0WAEFhAWDlvYUiABItCGSHNK5LSOmpIHX7Ir lfskUpyMPnPMokGU4HEIVmztYbInApNFZRPKh+Pg0K WU1vv5JyFOxyAGBlYU7hbd0KWIrWHaXpZ0K1kKXwP3L5QZcmCi0IEHLcLZCkCbZmPSSZFDfzEC9FMI9q suE4AD1RwFEnHZSmOBSxxWEvWYp7W19lrHXdETbrSU8ERQV+Rambo+Zw1QVRNiCEPvGMSrIvCjQYPAPyCt W7LmA2XFx2GfC7SrHI62qNhsgyShSCneDQ0WCG9bPO AmZBLMGD0OpRPcrH9esrSaChXdJQRZKjSdW14baACnZMMkKSSeBORmRf0OSDNnC0UbtjCvaUtfprEsGU YzCSSAWW2ESValwlWpePYomTgsKM59hKstER1QYv3DAaDqKT1pzk4XkYKzDw0KPHFuLX8JBJMfDPGoVU PpPTV4KKUfRwEyHQuiFUWqOSWxGFN2WVQoGYRmHP9L KpXhLJAkYNr8FvSzHOEgVEPset1EACUwBAPiBYTnVnRrLBToBMKfOSlvKVBuSXAdXOK1GVGzBKUdPK0Q KkEySJPcQWQ8IZTwBAYrZEOxfm0EJSDgDHCyNBXqPJRsMUBiNHTgWVxaTCKiGRTiGEX8MDBkHSXpXE0S PlLxIUOlSBG5YddpJEFvVRAauy8WBOYkBIKfMjj2Kj UcIVQyFRGcRXkeYELsDPHjQGGkXCYwDEXoPJ4QPbXrYQGdDXGgBZthOMDgSLFdyj2OTZImNRXtJJE6VS KfUHTiSTWxYKrdPFAnNQR0CbX3EGZqGXStPL0XFyKaZOTeELH5CBDpCJQaXXQebg9XUJPfHCFjZnY7WS XcFONiYDQkPXymLMDjUMF5GNC5CGFuJXCwDI3QEiRd OPZqXQm7ORYnPKWwZHKjxy6GLUPgEVEeZOP6NnDaZPIpMALtVEtxWYNgQYR0Win3FPZbWQRyGH2SUdBc SZNjMWs9TPAuVVAkGBUeky0QQIZnWFEpFGJ1TvNfHLEcRBAjJYovEBIhQIJuRfU4CBHaBTTnVW2SWgZa VHQlDxL8UmTiJBDkSFBmzr2TOGGyTEHyBRvnWPTvIJ ElEKWxCPv3ltPqhIZpDTu6MF3FD7YekyGvWfNQPj4Hd137YJS5MOXfBc3YM0wsQz1dXTRvYHAGMh2BZZ m6JRL9GfL3MGP9GEKuMLWcXdI0RnIjVEV9TMO9SfK8Lld+FXcqNCuzEurkENlbJIDkJIK6PGdpOYUuEu OnNfj9XfLfUJ1tQGHPXb0+ZUpqrGKcnPjpADYGGfTmWOT8PJopZPBAUt9N ID Date Data Source [id number] 11/12/2019 03:03:53 PM EDT [facility] Name Value Range Interpretation Code Description Data Jing rce(s) Supporting Document(s) Progress Notes [facility] FZHSAj8nQyAIRgTm47/XSFxqSPGlf5PeVTbvUJb8GPjxJHDlI3GePSA9iE1fZRL8OGkNLwVeGjTuOZN7 lbm [file] ICAgICAgICAgICAgICAgICAgICAgICAgICAgICAgIC VxELSsJHEtZBCqVVNzCUBhWOTkIBQmVQMcIGQrOYXtRN9VWFNlZTLaUHBbQNKtTDPaPHOrLUTjGWBcNS AgICAgICAgICAgICAgICAgICAgICAgICAgICAgICAgICAgICAgICAgICAgICAgICAgICAgICAgICAgIC EmRWWpZZQcNBLfBEQaRT4TBDFsQTWtDGQyNOErFFAb ICAgICAgICAgICAgICAgICAgICAgICAgICAgICAgICAgICAgICAgICAgICAgICAgICAgICAgICAgICAg QGMbBWLoHWEnXVUbJRKkAZLbPTMlGOVvMV7OXIJgWVEnWWCjTFWbUFQcPWEvFRLgBJAzKAZhBHBeFAMc ICAgICAgICAgICAgICAgICAgICAgICAgICAgICAgIC BgRXWoOKAvUMVnNEQlBQOwMXZxGIHbKHFeLINcJPLwWMOlBM3DRZHnZNWnFLKlHTRmRRWxUTZkZYLoGC AgICAgICAgICAgICAgICAgICAgICAgICAgICAgICAgICAgICAgICAgICAgICAgICAgICAgICAgICAgIC LbJCGeVPNjDNScVPCjGWTmHR3OKYCzXYCbFHJrPYUl ICAgICAgICAgICAgICAgICAgICAgICAgICAgICAgICAgICAgICAgICAgICAgICAgICAgICAgICAgICAg PQGeQYSiQTWoFULcPEPhDEHcOLHzQPWhQTHaGN1IOTYtUSEuBLXlYKViKXWbKSEyTGOuLAUdVTYoGLXm ICAgICAgICAgICAgICAgICAgICAgICAgICAgICAgIC WvGEIlYCPuPFFgZCXoBHOcVNIsMZNbQXSpYVGfZZWaTIWxEKApHY4HJNWaEVOeIMRgKGSgAOLrSOWgJS AgICAgICAgICAgICAgICAgICAgICAgICAgICAgICAgICAgICAgICAgICAgICAgICAgICAgICAgICAgIC ZbGFXeCSHfSGXjYQXlJIUuBNLmKQ5PUVRqMNVrWNTv ICAgICAgICAgICAgICAgICAgICAgICAgICAgICAgICAgICAgICAgICAgICAgICAgICAgICAgICAgICAg ZZEwAWSuALEnUDErRMDcWAIpREIpIJMcWGVbIBLwJA2QVJEpZJFoPEBgAXQmPWYcAGIkLOQvIVIdGMQr ICAgICAgICAgICAgICAgICAgICAgICAgICAgICAgIC IlXJOcZBGjXSXvBEUfCFFiDPXhPAXtPCLxSGHtYIGjASOxYOWdVITdBP1MEY47zMNax5O1XLHnKE0apr c/Pk7JKGzmvsEuoKCwFD7FBuQeZV6tml6HXhBfNV6eld2DQYbPIuTrS7V4zXIaPXCuAUPPUeAzF75nNH dzXl34WAvmWIOjFkCgUOs3Fj5HLfNsP0wkXFLcXoG8 JOAeDnH0EFEmBsF1CGZsGzHbITtqIC7Ky8ZgiEBcMYe+Sp5CGQ7sw9MuSKukGgMbVX8ajf0UCKaIMtLu Z9NifhJ5PKOlUAPrWu8XPXBtQOYbhYDyYpTkQYVUWzHiO6ErbN64YHSOLh2+DQplbmRvYmoNCjMzIDAg t0SgBSg7PI3WGHLvMOe5oPLvPXMrZ1Zll7YyIs86DG LdOikaLJm2SmR0hWOLZQJlSUXduNZpIVZ5RBvlDF9uERBgMSIxQrRjVDXAVO8CDFHiWXTvjSCwVUGaQK GSRL7NZNxmQPH7RepokrCowLPuKQyfTT8TDBHaqbFjXyRzBLRBJDr+Is2HEE9qj3FlFIclUZWzAZ5hef 6NQXlOWdDmK8O8jIPlU5F5WFoyNa8DTNQyVXEqPdMo HYNDGOsrSJ9UTA2szvT4QP6NhHNkGSVzHZEehQWpRXg8Q84egVPmCJzlQR7AKQW+Rambo+Ev4TECWjEYNh MHWlUuOdZBBNSuPrX3FbG7WHu0XpC7MaNB51nHirbbKjTAnpVS2GYH3hTNGoAMBTCP1SiCVwxD2vdgVg VqTqVKNQZzFoS18hoKTzTEBoZSDfKZYuLx7TUEEiL1 TyfhLcoZhyncQmAYTtNNVURE6RDKzfbjBwxDFkxSrtDF52uPboJC0FHt5NCaTaYB5uxo5FgMMxCl2XBH ZuXM8MONLqIVDlQGYeNBJ2IBUcNbFzFLyaNWKyEDGoFQZ9MDBgAZEeFH2BOhUpNXHqPeEeKOYqWPFiPM Duoc3JGHBmSJOfLDZgDoWkWXSaAWBtPCjvIDYhOPUt ZNR7DTNkXRRxMV2HNfSaDQZqREGrEfMdFSSwCTSwci9QXEHgHVPsApIsWMNbITJoYKWcVBkaPINkZMZ7 ZVjuYIMqHNHaWC5CZcVrTCJtQTG6MQHxQDChLTCbzs8ONROmWAIxFaY1ZHSsSQCaXIVrPCrtZCDnHIX5 IKA9HMXzLLFpVK2BQxEoYKTfBNr1DGmlOGQgHTOtfo 8FDRCbDENvMeInFXFzJOZiESPjLIwmWUAwTCC1Tch4PWXdZLRkSN6BBaZrJHEnCBu3EKhnFOGdMEUmrv 7AVGQwJBLnWVr4CBFzXPYgFKAhSWriANPaNPM5MMQ2WSIbQKObHX8WMtDxLYKuSwR9LGxePEFuVRAiaj 0KMDAwMDAyMTgwMyAwMDAwMCBuDQowMDAwMDIyMDEy YKKxMWRhZH9TWuCgVZFvGvDqLFFjNIKcIDTwtl0VMAArINNbDaU8AQPiLVPwJXXrEUjeSDGrYVAaPwUa GWIdRHEfIV2ECcEkXKCjLeA4KpDuXENnIUUahq3GWPEbPTDsTynqBXFxKJDsHMRqXQwnAHTtPOH4NmRq JTSxGBFvJM6SRzPaNVSiCdL0YidmKCYkKTZhzj4DQF DnHWGfKMTmPVIdHSYhOELxDIttSGWmGOX1ELOoJTHdXCQnBK7RGoLwUGWpUxYkEHWoTYDmSPAkvv2HIZ DcDHZaQlYoAYTyBZPpFQKeLXtxOFVvGFS5NzfaCBNqUXZbIP0LGmWmXUHnZvspNaJhEMScXRNqhq3WOK QtQPMfTAV5SKTaTDEaNCBuWOmjMVVdWFI4JKZbJLSi CDIbKZ6CCqNfOMujUNEKNbc5JRoyD3p4BVSpOC1LL1Tnt2ZjRiTtLHWSCJvmSQ1ageHwBVTqTh4GL3yU TvweCYVcT4Q0YuA3JUB0RlE5LJMaHmS1K3P3SFK4XyD2YL6dYQMvVvTfBzzlCXemYdn0PvPqVwJ2YfT2 AoTlQZY1XZXkRzNtBP0GQe8VGdP3ENB9uBGrVl0JZni6AYGXEoOtVD9YUQg= ID Date Data Source [id number] 11/12/2019 02:37:12 PM EDT [facility] Name Value Range Interpretation Code Description Data Jing rce(s) Supporting Document(s) Progress Notes [facility] PLRDOl7qZbPXEtHx23/GPGzbGXItz5CmWCnfVCz6LBmcYMDdC6KtYEA9zI5tCQM1QPzCUcRqUvUgWSP2 lbm [file] AgICAgICAgICAgICAgICAgICAgICAgICAgICAgICAgICAgICAgICAgICAgICAgICAgICAgICAgICAgIC AgICAgICAgICAgICAgICAgICAgICAgICAgICAgICAg KRBsFWYiAB7SUXHvETTgKWPvPWSdSNCdPDHoJTTkTYYgECCgPXAbKKUcGEDxOKYqLHRsZSJaNVTbJGUc TVCtFKXgNBLoUYJsDTEcPCLjBGFvZURnRHHpCMVeRBAjFDRxAUCzVMHkPCShTJAwHD6WGBUkYQXrSELr ICAgICAgICAgICAgICAgICAgICAgICAgICAgICAgIC AgICAgICAgICAgICAgICAgICAgICAgICAgICAgICAgICAgICAgICAgICAgICAgICAgICAgICAgICAgIA 0KICAgICAgICAgICAgICAgICAgICAgICAgICAgICAgICAgICAgICAgICAgICAgICAgICAgICAgICAgIC AgICAgICAgICAgICAgICAgICAgICAgICAgICAgICAg ATAzJTKkOTVlYC4VIDLyVHJcOUZlOCPpVXGbUHHsMGXhITGaFBBxQKOaXDAcOOVoQYHwTIVjUENiVBJu UGAuOEQtNPTlVBAgHKHsMEAzZGHpJGFrLUWvZZLrXVYhCTAmFMFeCAScZHKgHLBoNZZbHE3VBCNeOWAu ICAgICAgICAgICAgICAgICAgICAgICAgICAgICAgIC AgICAgICAgICAgICAgICAgICAgICAgICAgICAgICAgICAgICAgICAgICAgICAgICAgICAgICAgICAgIC IiEB0OQIOfSKYpRGZzOQCpGHJyRZTvDBLaTVPmXGRzMFYgDZJjYIEsNFLnTDZrYNMbWHDwJMMwJZLwTW AgICAgICAgICAgICAgICAgICAgICAgICAgICAgICAg LQOqFUWcJVAcIQDyFX9QWRGmMZDnFIIyATZxSXUoAZVjAJOzKNUkCDPqFIQeTGPuLRJhPMXtYTRdLROh VJQnFLDgSZSxIJXxZJGdQXVdDXEuRFOzMTYsKWVtKHMjYRRdDNHeZGAeKWIuBVSpTNCoLMHyZP0SIKEf ICAgICAgICAgICAgICAgICAgICAgICAgICAgICAgIC AgICAgICAgICAgICAgICAgICAgICAgICAgICAgICAgICAgICAgICAgICAgICAgICAgICAgICAgICAgIC JtETFoOX2BXALmQATtBWQkQQScYPUaVKKdFMQzZUSiPHKaBDSnCRDxXTSmUDJoCJEdITGsWSGvLHHnIG AgICAgICAgICAgICAgICAgICAgICAgICAgICAgICAg JKXjXWHbOEFdXPRbYSJoIJ1QLX37pKYqa3N2NTLgWP1qstm/As0XHQbcygXbuCEhNV4UPtKcPR1fog6L KcZlRA5kvq4DLBbVMbZmN9M9iFCwNTNdHYTQJjYaT93bOXbgSc21MVxvEIGlVfXiVEg3Zd3VCxKnZ4mc XTCeMfS0ZMOxOkRsPNphPI9Mg6JovEOrLRz+Pg0KZW 3cu7TtXSaxSVCsLR3lqa3AIYdSKyBdK8TmhxH2ITJ1WSHcIx0OMOVqVNFbxJZfLcIkNMADKmTtY4NevS 54SJIIVu6+OXybipJvHqxCIvN1NJKcp9SgCWy4CN9SXQJmYFa4yXAoLMUrO7Mwh2IdBr11WCTfEovcVJ l4PkS8zVPDSBRqASHogDIcSSQ0EDytCX4zSWSgXOMt PiS4GXDBMA2UFGPiOHUuxFFqXJIfDDFXYF0QMOkuLWF6ColhchJxyGOhNHyuWK1JRVIppaXiGlYxOSAM DQo+Pf4XXF5kc7OqHLrzKcHcCZ4mfo1VCGiPTtVkN7N3uZFjK0H4QZkoZb5KGCNfDKBrHwYqCIRNPMad VP2AYD9vogG2FZ4FyQKwXLTaXIMmwGAoLRs7D63vyD TwJMfbQI2YSYC+Rambo+Dx2XHKQaSZZvPDUtHvUyVKYDQpBrG1BmA2ERq8EgZ5XgBG82zRpcqcNgDHuuUP 4KEG7aZKSuACURMX0VvGUdwY1xxsTyFRCyWRWYTeMnY65rtKWwJXOjTOZ7WXRoXy0NPNQbB5WlrzMzuX opqyMrKIYaMHFSDN3VZYkciwFmlXFbiUksAV71jSgu GM4LMd9TOxBiJY2hqv4FvFBdBf7PISBjMR7WMXBaONGcMIWpOHU8WIVdNbZyUVxrYSEgVXLrFTW7XJOo SBBjIM1LFwTcFZJyWbOrQqNjBJRbSGGhce1ZXFCrNNQqDyc3WYXmHXPhAECjNOvjNQPeCHMgIVX0KJWw CBBaQB0GEvXpGUStRUGrTMWfHTOvYVEazh1OTVFcJC OkTkY9WQCcNAGvXJZmZEalHZKaSEJyPIC5EDOdRQHeRH2XHlEnNJZvBBD1OZsuMXTtHRTwte0KUCTfCN IaCqfvUuWdXRLhFYHcXElrQFQoBYJ4EyTgDZYxVDFeCS2CGzJoEEDyQNQ0GIpeOTDyEZPjdl2TXVEsCP SdTYG2FFSeXBQsUXWkMIplMOBfTKM8TDnrEMVcLMWl XJ1INzAnOXUeAZi8EQHrCVUrMCUzgn2PGLIfWRKkDMSvXSEgCBFbEJUaYJmiSZFrELL9AdF9RSFwBJDa HH3JJeIlNJTbPCx4QPGzGWOjMNRayf2DRVYyIIWaHNB2LVKrQQHxSEOuRMleMXKjWIO6YJF4QKFoRMQr YZ0YZlFqNZKeMWe6YXFjVEEwALPndo5EMGQeEDPrOB K3CMKiAWPuVLZhHXtgRXZbTSJxHWUoEPXvREUlTE6CQeJqDUKkGpUeSRPgMHSiGNZizm3LUXInGEYoDP X4ZSVdJJTmTARePUnqUVQgANEpKVnbYPTsNYEsJZ6DByEaSFGmTuP4NROlHFZkIFQcsk3UDKKhSBHqWb AsQjWkPUVyTVUuYQt2rmUgsABtHRs1DC7LZ0MhddLl BmlDUs9Ap283DOI2WDXoVq8KU5vbJz4zEDStYRHWSg4OQBp8CoCzOxkuAIP8DvqgQSMuWpz2GWYhPhO6 TnakGCL7KHp+WWspLKF3W9HcRpjmAmB6TYUvLgr0QOAiZVepEkUmZjLsBU0qWJCSDu1+DQpzdGFydHhy XGGGMwRdMkJ1XEmmYYSVJl5J ID Date Data Source [id number] 11/12/2019 09:19:00 AM EDT [facility] Name Value Range Interpretation Code Description Data Jing rce(s) Supporting Document(s) [place] 0.70 mEq/L 0.6-1.2 Normal (applies to non-numeric resul ts) [facility] The above 1 analytes were performed by [facility] [id number], ,[place] [id number] ID Date Data Source [id number] 11/12/2019 09:13:00 AM EDT [facility] Name Value Range Interpretation Code Description Data Jing rce(s) Supporting Document(s) Blood Urea Nitrogen 17 mg/dl 7-18 Normal (applies to non-nume lorenza results) [facility] Creatinine 1.03 mg/dl 0.67-1.17 Normal (applies to non-numeric resul ts) [facility] N-Acetylcysteine (NAC) and Metamizole conteh ve the potential to falselydepress Creatinine results. Baseline values before medication adminstration are recommended. Patients undergoing treatment with phenindione will have falselydepressed results. Patients on phenindione therapy should be tested with an alternativeCREA method.Toxic levels of acetaminophen may lead to falsely depressed results forpatient samples. Glomerular Filtration Rate 77.00 mL/min/1.73m2 [facility] GFR Reference Ranges:Normal Function or Mild Renal Disease,if clinically at risk:>or= 60Moderately decreased:30 - 59Severely decreased:15 - 29Renal Failure:<15 Please note that the MDRD equation requires an additional adjustment forAfrican-Americans (multiply the GFR result by 1.210).Glomarular Filtration Rate (GFR) is estimated based on the MDRDequation, which assumes a steady state for creatinine ([place] Int Med 139/2 137-149, 2003), as recommended by the NationalKidney Disease Education Program in conjunction with the National Institutes of Health and the National KidneyFoundation. The [place] method used in calculating this result is traceable to IDMS standards. Glucose 85 mg/dl 70-110 Normal (applies to non-numeric resul ts) [facility] Sulfasalazine has the potential to false ly depress Glucose results. Sulfapyridine has the potential to falsely elevate Glucose results. Baseline values before medication administration are recommended. Calcium 8.8 mg/dl 8.5-10.1 Normal (applies to non-numeric resul ts) [facility] Sodium 141 mEq/L 136-145 Normal (applies to non-numeric resul ts) [facility] Potassium 4.3 mEq/L 3.5-5.1 Normal (applies to non-numeric resul ts) [facility] Chloride 111.0 mEq/L 98.0-107.0 Above high normal [facility] Anion Gap 7.3 [facility] Carbon Dioxide 27.0 mMol/L 21.0-32.0 Normal (applies to non-numeric results) [facility] The above 10 analytes were performed by [facility] [id number], ,[place] [address] ID Date Data Source [id number] 11/12/2019 08:05:44 AM EDT [facility] Name Value Range Interpretation Code Description Data Jing rce(s) Supporting Document(s) Treatment Plan [facility] MLVYKe4rBzTMOsFr72/NROxzXBJnk9NwQEnuZPg6RFjtSEMwL0DyQRY1pY8nUQD3CFqCHiYzCyWgWSU1 lbm CzSqxTCbLzBNGyNocXAwJvMFvwQtyxdEOkAO4GlRX7QBXpD39xERTuFZCxF3ByOXZqDkQ+Zt2JIQYvkH UsLD5AYqsA4X6hf2x3Xe+/vwab3WW3goGK0KpqhnPXaT2MobzD6qAEyV6pJl7xUbv6RsaO83uiIWOZb0 KkKHwboYabMzRPDJ2IJ+wuVhRj+t+/5QaYZc1r6a/d t3Ji3JMb/fUvbH+jB8z07t1WS3NBoFt4uX0L/kpwbe5OdO8vTpIClnjDVmyCCLcA8IVrtjYWA+bslr21 OX/ChZlfJF4/dXtxaupPczR00WeX5mELCg03CFnzEKZOd1+Cy6SbmnBigIoGHiy4nWR7olEXtoOmf1QM EzymLp6fnwunHICZ+TeHrnNEuwo4Dh/Jdvs1aQEZdl mzz8aGrijkcsu+5BoMgVSmxSU38iX+LOO0mSNpKvQGoHQirDxcnKuiwCzPHnkD4j3lg59D2KWXh/RVRh MgdEkOydPSFWJ00LWi7Ng5uJo4QwZcJVfvOfY9vde7W6Mr2tWvC4W5KC7Q45y5WQ83kXSno0umdfkZRu lTBL19oOl7cZIqT6djetJd6tWBC8OVCEo7jBnSXtTb USJaoHyU9ZHQXs7WoRkiGy9pLL03W3OhVGmftyir2jDoH9xCB8BspfcRJ6r6ZSYrROa4lW52msJ+K9ab xHhbuQBsX5SR5huc/6XS45cdU0wc32vo2ZquRURTkcOfUDgRSJqErJQKwhP3V1hCC1ydU95dWJ/eEur/ dVlgJIR/KEiOw4ABxbxI99srkTBtZDGANBUEvJS1pY dDGJ+ZuPYx2mSX0R8FvjRSROph4h8pB/Kso8LkCiYa7vdlIdAJSeaLcl4sIO+DFZbD4z55Cv/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 [file] ID Date Data Source [id number] 11/12/2019 06:12:12 AM EDT [facility] Name Value Range Interpretation Code Description Data Jing rce(s) Supporting Document(s) Nursing Note [facility] QCHUMa9kKaQUEnYj27/XEUnvCWUrt8HxRBfnMAp5YAnwHFDnO3GkDKR9lM7sSCX9VGyMGrZnRwSvMKA8 lbm [file] ID Date Data Source [id number] 11/11/2019 11:19:28 PM EDT [facility] Name Value Range Interpretation Code Description Data Jing rce(s) Supporting Document(s) Nursing Note [facility] ZIGQCv9fBfCKHbYg25/TIYwiKYVfp7AvGCfwCSf3HAbkIPXpJ8SaBGQ6pA5hIQO2VCnYVxRlIuEnSQM8 lbm QaKxrRStSmWZFiZujKCpSsZYooZimxtORrYJ8TmBF7BIVzB44rXALeQWNrI9PtCJp0EV7+KWhdPUP9rs QrhE2PCGRSJV1x2pAUs6hfw9sBHdka85b/HkODPDWFNWTlAsEKN8vwALY/DW0O180izC8t50oMmgyq7s kbhtcq30k+L1bPSP9f1EPgHRH4y/cqNYPxAot [file] V1E4DqB1VaK2EVG7LlE+AR8aYSy+Cz1Tm7BvjoU6qzSiIImiVOm9Ma9DBZQBQ7IVZn== ID Date Data Source [id number] 11/11/2019 10:21:55 PM EDT [facility] Name Value Range Interpretation Code Description Data Jing rce(s) Supporting Document(s) Care Plan [facility] EJTNKp7vCsCFHyQp92/CTMyjQADbq4CfLQyjAUf1XYipEATvY1ZhUBB0kW2oSGY4VDtUBtTwMzHzLMU9 lbm [file] ID Date Data Source [id number] 11/11/2019 10:32:14 AM EDT [facility] Name Value Range Interpretation Code Description Data Jing rce(s) Supporting Document(s) Care Plan [facility] QVEXLu8tKmFPMdIb03/EQNnbPIArh8BdNDgiGBn6MMsvULQcT6ZeIHL8eO7pXFG6KZtEJmXhZfKfKMM4 lbm [file] YZn8TL2ATWE6XXEyXx9RSKZaTA1DIVUxMPMgFGCVSt TlTXYtGuSpJWOqNKMZEUeqBXUjJ7DnZRD0LGBdSn5+ZLaqWG6JD9OrUNI1RMd2KN1+WWxiYF0LrPKWC3 KzhIFyJKuoB5LNXM5FSDT2CB2MsUSvPV9HfXAVY7GktOHlJl3rHYNpj9JtFk2xS6DFVASQIGTgFFdjZN lyJWMaDMf8I7D4WIDyU7VPT807oNOusZr7Wj9iS6GQ XEzTVnAbFHdjZXpjNYRcMMb4V7W3EEFoX3AXU4JlZyVpuvAlF6I+AsPhOWFNUM3CVHLTQIv9R5O6nFAo I7L2aIiAbZM6NI5EHY0NaJTymCScf99+BiUYMkBhC5MYA6MLUQ0WGSq1E7U6bAHeZ0V2vApStBB6AK3X NS4QzKhpzTPxZe9tDQbbSGB+Ig2SCq0CJjHtFE4nvq 2KHiSrQZZyQdxRGdy5T6hnifj3iICvNvP6P7J1VdE4dVTcVR1CV8U8nHZhNZU1AYKvtSJ+Xw4Fy3QtKF XmZNs6U6lcBGCvXTTwOcUlvT17A++5myuecXY5E9q2CVGWyEZxoAzAqaBiH8zFYVB3g9Y0SZw/Pg0KIC F0nRt3uRUuWXJcUNd7wD1wiRr4PiMjTV26FIYhLBfb aG1pNzj8L3Pte0RwKm5iRf2wcJOwSf3IMmDlTGK9lnMoKtDPIpL8zQolxlegHVN3A1b4jIL9Cs26m4ho dhGyl0EkXlT5VYbxIODdPgOkxiExQCJ7hoMchU0itiLcHh3IQRVsAGtdcnClSsEMSe6QArFeNZ93Dbji wJ6kcTN+DQogICAgICAgICAgICAgICAgICAgICAgIC AgICAgICAgICAgICAgICAgICAgICAgICAgICAgICAgICAgICAgICAgICAgICAgICAgICAgICAgICAgIC AgICAgICAgICAgICAgICAgDQogICAgICAgICAgICAgICAgICAgICAgICAgICAgICAgICAgICAgICAgIC AgICAgICAgICAgICAgICAgICAgICAgICAgICAgICAg ICAgICAgICAgICAgICAgICAgICAgICAgICAgDQogICAgICAgICAgICAgICAgICAgICAgICAgICAgICAg ICAgICAgICAgICAgICAgICAgICAgICAgICAgICAgICAgICAgICAgICAgICAgICAgICAgICAgICAgICAg ICAgICAgICAgDQogICAgICAgICAgICAgICAgICAgIC AgICAgICAgICAgICAgICAgICAgICAgICAgICAgICAgICAgICAgICAgICAgICAgICAgICAgICAgICAgIC AgICAgICAgICAgICAgICAgICAgDQogICAgICAgICAgICAgICAgICAgICAgICAgICAgICAgICAgICAgIC AgICAgICAgICAgICAgICAgICAgICAgICAgICAgICAg ICAgICAgICAgICAgICAgICAgICAgICAgICAgICAgDQogICAgICAgICAgICAgICAgICAgICAgICAgICAg ICAgICAgICAgICAgICAgICAgICAgICAgICAgICAgICAgICAgICAgICAgICAgICAgICAgICAgICAgICAg ICAgICAgICAgICAgDQogICAgICAgICAgICAgICAgIC AgICAgICAgICAgICAgICAgICAgICAgICAgICAgICAgICAgICAgICAgICAgICAgICAgICAgICAgICAgIC AgICAgICAgICAgICAgICAgICAgICAgDQogICAgICAgICAgICAgICAgICAgICAgICAgICAgICAgICAgIC AgICAgICAgICAgICAgICAgICAgICAgICAgICAgICAg ICAgICAgICAgICAgICAgICAgICAgICAgICAgICAgICAgDQogICAgICAgICAgICAgICAgICAgICAgICAg ICAgICAgICAgICAgICAgICAgICAgICAgICAgICAgICAgICAgICAgICAgICAgICAgICAgICAgICAgICAg ICAgICAgICAgICAgICAgDQogICAgICAgICAgICAgIC AgICAgICAgICAgICAgICAgICAgICAgICAgICAgICAgICAgICAgICAgICAgICAgICAgICAgICAgICAgIC TjBLWjSMBcAHLnTDHgPZCqTYPdDHEoGFOiDXd3S8ntARAcDMHkIT6eOVh2De5+HNvJWnTeVQV9wuDxkU 7EDA6nw3OmBPlqYRItq9GqSRm0IY8LFUQtAJkiDP7P NLwbkk6UQPOlBMAskCZOd8mhZeFuUMD2KSLdNwzhCO1VAIFbX9lhzhDcYPTnDZRFJE5XJzAdW6JqmV69 IDENCj4+SHwuwuRlFdeXNeOyMCYcl0ApPEe7ZK1MLYFgJmzzk1IrCuHzPUAOCYyhOY0MOXU3UJSxOGFf Sz9KPLBnT641ofZkAE1CIr5JJxHaTU2nik9CDxPpMO IuJpoFSmf2IVylPY3ByQIgOOdCKWYxEOPgUW7dRoghE8yaaOT4s3HqFJWdCXNudpFyMS8bVGAKCZO7LR snHA3cMDDxGUQnGiTvBMZSOE7WZKLjNFCkwPOhOSXuYKRBDV6KJFfhSTG3YptezcZbbPPpPFmkAC1UXG JlbnQgMjIgMCBSDQo+Zc8FCP1ya6OsOFibCKVkFP5t ic5YWHjQTuCwB1X5hLGyG4D9HFetIk1AALPfNGOpApHbMFDDTTybYB0SFZ9vypP1YV7ZsDSwBPPeSETv lVMyTVv8L61osNErYPxdRM3QYIZ+Rambo+Am3CKMKtTVEbBXLwKpTfBZZQVuLtL2GgY6CJw8JhS4WfSF10 yYssnbAjOFktAN2SOP0hNSWhMKHRHT4CrOHejN7vzw OkIyNdNDUMOjRhI78duHOfWDTfJOVsUTEdKq0YDXEuR1DehpLgyFjlhhZyNKZqDJOEXV0DOFuzixGtiN IyuJfqVE09qPqzBX2PVy0AAoWuOZ6gku7McAOcBy6DLBAnLH6LTFCbMVOeACAnHEP8CGZlOjDlXFfbFU TgUGVoJUA5AHFqTAIkZN7GOnQfZKHlAPk2NODvRVQb AHBupp7EHTZdHVEeATN4ADErWZUzPFEwGTwsPCLcGPGqMDJ8MEArXXCuZX6IWhVpPXKtKRK1KZInAZLh TOGtkf7XLWRlRPBvBsP7EJIvJOPnWTKgLSdkOKWdBLHhITF0SBAxGGPmRH7VUhWqXOHsUFUnGGodGEMt VWPiqf7ZRKXbKXVqTmZsTFZiQWIgUCAmSLnzUFQfNA H9XQcsNSFqPNFlQE6WQbMuTPKnZIA2RPFvHRErBHSfxk4NKWScVFEjJHa2VdRlLXPySFWdSRwiYZQlRS E8AsQoLFVeABPbMG6HWvBfVEOxLSu2IpuyEWNjBBQwxf9UPIMdVZZpVdz4YfMoWVPeWZUrTPszYOEuPM W2TQm2LCLbNKHsBY1KIkRmKMSfRTgpDrNxPOVtCVVf tw8EMYVuKCKqTPT6EICwUGDhBVRpTFvpJUUdQGK1SqX9ZEXiNSRrTR8XWaXoLSFjNNw4IlWuVSIqGILb vh6EVALbEYBcDVi9PZAdOSIjUYVtACwnBIEwWWFoWcd4GQOrXKEgQA8FRcKdTEIwFlThGYtrTDSbHHUg lj7SBXYpIMGyPLNxCyZzFZMdTKRrJAy9yqEcsNAiKQ j2YU9VA6VomxHmHlADMc9Lb895CCF9GUAfUp5PZ4xjAo6cCDGaFXVONr5UQJu4ZjDgTKJ5LXL5SkB3LO i7INTmJeZ5LSEeHIpzFEClQYD+ZFbfXYDwXNF7Hfq7HqugULn9ZGJlKnd1EfIcR6BdJ1WqXx8bPMIRYc 4+JQgyaKPsmCqxTKDEBiVfJpXbVPtbFFPFZs9D ID Date Data Source [id number] 11/11/2019 05:10:40 AM EDT [facility] Name Value Range Interpretation Code Description Data Jing rce(s) Supporting Document(s) Nursing Note [facility] WZKSSq3bAjIHPvKl40/ADBpyVSXls3MtWLalUHm4RObiQFDvJ6DoCIS7lE8sXEI2GKnRTcLwYgEgHGN8 lbm [file] U7UrViAlNzOMHpBYMvYIDvQVfdOVQ+ST6mWNo+Aj8Bl6CeysH1qeVkQSkeUXcfIO6AJDSDQ8MAYu== ID Date Data Source [id number] 11/11/2019 12:27:52 AM EDT [facility] Name Value Range Interpretation Code Description Data Jing rce(s) Supporting Document(s) Nursing Note [facility] MBEHIu5lEeQTEeIc48/NQCeoHTPzp4ZvOYrqKWr6TCucVWRdC7XdVKR1xM0yEFE7VZsZQlGlYcUtLMQ8 lbm [file] NoCwGDP2KixjU5HhOSC8HEW+YY1nUOz+Kp3Ze6LttdM7kvDsJOfkXBa9Vz3KBPQJG3OJFe== ID Date Data Source [id number] 11/11/2019 12:06:56 AM EDT [facility] Name Value Range Interpretation Code Description Data Jing rce(s) Supporting Document(s) Care Plan [facility] XRHUUd3wVvGOUpUi17/LEAaaVXUyu7LdSCbmNBu2OJdrRLGtF6LbPXW0uZ4mXRF5CHhAMnMdQuDzGOL9 lbm [file] ICAgICAgICAgICAgICAgICAgICAgICAgICAgICAgICAgICAgICAgICAgICAgICAgICAgDQogICAgICAg ICAgICAgICAgICAgICAgICAgICAgICAgICAgICAgIC AgICAgICAgICAgICAgICAgICAgICAgICAgICAgICAgICAgICAgICAgICAgICAgICAgICAgICAgICAgIC AgDQogICAgICAgICAgICAgICAgICAgICAgICAgICAgICAgICAgICAgICAgICAgICAgICAgICAgICAgIC AgICAgICAgICAgICAgICAgICAgICAgICAgICAgICAg ICAgICAgICAgICAgDQogICAgICAgICAgICAgICAgICAgICAgICAgICAgICAgICAgICAgICAgICAgICAg ICAgICAgICAgICAgICAgICAgICAgICAgICAgICAgICAgICAgICAgICAgICAgICAgICAgICAgDQogICAg ICAgICAgICAgICAgICAgICAgICAgICAgICAgICAgIC AgICAgICAgICAgICAgICAgICAgICAgICAgICAgICAgICAgICAgICAgICAgICAgICAgICAgICAgICAgIC AgICAgDQogICAgICAgICAgICAgICAgICAgICAgICAgICAgICAgICAgICAgICAgICAgICAgICAgICAgIC AgICAgICAgICAgICAgICAgICAgICAgICAgICAgICAg ICAgICAgICAgICAgICAgDQogICAgICAgICAgICAgICAgICAgICAgICAgICAgICAgICAgICAgICAgICAg ICAgICAgICAgICAgICAgICAgICAgICAgICAgICAgICAgICAgICAgICAgICAgICAgICAgICAgICAgDQog ICAgICAgICAgICAgICAgICAgICAgICAgICAgICAgIC AgICAgICAgICAgICAgICAgICAgICAgICAgICAgICAgICAgICAgICAgICAgICAgICAgICAgICAgICAgIC AgICAgICAgDQogICAgICAgICAgICAgICAgICAgICAgICAgICAgICAgICAgICAgICAgICAgICAgICAgIC AgICAgICAgICAgICAgICAgICAgICAgICAgICAgICAg ICAgICAgICAgICAgICAgICAgDQogICAgICAgICAgICAgICAgICAgICAgICAgICAgICAgICAgICAgICAg ICAgICAgICAgICAgICAgICAgICAgICAgICAgICAgICAgICAgICAgICAgICAgICAgICAgICAgICAgICAg VTv1Y6deFXNdHNAjGQ2zJAh3Ri0+MAnMCjKzJRA2gc IjhQ3BRO9bl3RfJGbxZMIwk3OnAHh1BT1VLAWsSTvjYK0DICywuc1QCPHxDLAluBJXh6ukLhVbQUJ3JK GtTpweGJ1GGVWzA7dhwiMcRBKeXUSUAD5VKcYoJ9NelR36KPKAZy4+OUetozMeIpeLJbSwFWJtj6KsNQ b2SZ9WUZVvRndwz4YuFsPbSVUZOYrjWW0DFDE5MDQe UWFfWc3NLGSrK164uzQqZW6DSa5GWxJeVM8miz7KZxIeZPVnMtqFOjc8WTukCW5HlZXrIFxQWQShVNBm NM8fXktnOrBtOCFbPfovh2OpGDYCIKI1JPghTb5uHUEpSWFtAkP9AYVKWZ6TGHIxEUZczEBeXIHhEZND LS8IQRbzCIO9FftumnAurAMsTUmyZQ1PJIOphaQmXf IgMCBSDQo+Rp5IDA2en6RqESxzBEDdII6uhp8CLExEZzImM0N4yYMwL8J4LNpnNb9PJRJtWUQxPnZzOC VVSIdhYH3VHD7hxbS0IQ9YaVPdEDPpNVMfqHFsUGm4S48zlZCpEHhrKC6PPOY+Rambo+Zw5KAUBoVDFxYY TdEvBtFJHXQqWfL4MmR5HRi7BmG6CpOQ85nLnqpfPm JUjkUQ0ZRG9pLMAaYWMVXE8XpMWbrW9fdwCeRbXhXZLDXvHyY99wdEUgGVSsRAJeJHHiSp1ZCGGdD9Rn ysHjtSnsfrBpSWZaFQQRJT3JYVljozApsRWbwLcoJM33qQsfWX8UIy0AKpOtTH2htc1TvKWuKs5CMXLb KT4PNVQtMFNkPRLmATN9WBScIuWqVVbsATElRJNiMI U9NHOoCNNjSJ3KDbCwUUJzZDxtVsJfCWByMEZbtv3PGQXuGIYuPDz2MHZhEFFuOXJcEOvoAQPtRGUxBL E1BZVlSNQpWB7PRqUaSQUbTCQ8IkPxMCAlBXCkiz9WLWMjLBWmNRt6MTLjWLBbADBlPGsiUWVpEIQrAn Y2SWLcDITtTX8GHgOmCVDuIRS2SszxNGFnRCFnxg2I WNZtLREzVrCyBJAhLHVkIBUgEWzxLWXnKXU2UPmfPDEvLFUrRJ3LBkDbGIYiNJHkMtEfWTImBWJutv2E ZSDcXKPmFFF7QfWsLCVnVLKtUAyxUOEhOQH3IIQxPUOnFMOwFU9HRwBlYHHzRVhtRJbxKVWoTNZgoo7C QLNqGZCwYqDfBgBcOABhTLTwNJnaCNWiHFQ9KED9CY CgAAMcDZ3YGmRmVAGzJAi1CJOjGTTuKYFldh5JNYVpMKMzMVJ6FNLqOBRxXARlXUtpIZIfUGG9IXD3QG NwSACeBR7AEpGqOLAcAQpnVQXnMAIzDQGoir1GXYIoYOZeDUFsSSGvDXGrIEEuWWsuGZSaDEJfRPR3OL WqOVYpMO4HTuFyDHUhQkO9CdhcIYElLECvfk1KOOTb IROcILV2GiAmYUPqSLXqSHq7lgAlcTRvJVc1GV0NK6TnfaPkYmYHTm6Gi406QAY0XFPhMo0AR3fzJf8y HCJeOODINd1DLCu0LRCtNHZ5JIXhGLfhLDO2NEVwCAI7QJC4MVSdAAO0O5P+IDxlNGVhNDkxZmFkOTM1 ZaD9FcP0Xcv5LcuyGcTpUaLcIS4lCHCZXd1+NPpswFCqdAglELGUIrKaYgOlBBtqBUHRJz0R ID Date Data Source [id number] 11/10/2019 07:08:43 PM EDT [facility] Name Value Range Interpretation Code Description Data Jing rce(s) Supporting Document(s) Consults [facility] XVRIGg8aGyIPAuVb58/XSNzhSGAus1CtHIwcYRr0KCeqJNXtV0WpPYJ8fT7pHXI1TOzINsZhXhIfYJT7 lbm [file] LaQGUkEkDxCIL2KiTbUGJpANNdBc4zUJMCUi7+HOlomGYicVzqJKXCNmKjIeV9XMnjPCHIGr6L ID Date Data Source [id number] 11/10/2019 01:28:40 PM EDT [facility] Name Value Range Interpretation Code Description Data Jing rce(s) Supporting Document(s) Care Plan [facility] VBWCKg3wKjYIXlXi32/LZFhmEOHol3JpNMjiDIw6WTqyEFDwI9CiUDQ3pQ4jWFH6OXgAEiFhDfLePZD8 lbm [file] LbBS8JFw5IIzR8CRV1hOCxCc6JKjQqLtkAYfQnLZ2FVBl= ID Date Data Source [id number] 11/10/2019 08:43:00 AM EDT [facility] Name Value Range Interpretation Code Description Data Jing rce(s) Supporting Document(s) Triglycerides 232 mg/dl 30-200 Above high normal [facility] N-Acetylcysteine (NAC) and Metamizole conteh ve the potential to falselydepress Triglyceride results. Baseline values before medication adminstration are recommended. Cholesterol 177 mg/dl 0-200 Normal (applies to non-numeric resu lts) [facility] LDL Cholesterol 83.6 mg/dl 0.0-100.0 Normal (applies to non-numeric results) [facility] HDL Cholesterol 47 mg/dl 30-70 Normal (applies to non-numeric results) [facility] N-Acetylcysteine (NAC) and Metamizole conteh ve the potential to falselydepress HDL Cholesterol results. Baseline values before medication adminstration are recommended. Cholesterol/ HDL Ratio 3.8 0.0-5.0 Normal (applies to non-n umeric results) [facility] The above 5 analytes were performed by [facility] [id number], ,[place] [address] ID Date Data Source [id number] 11/10/2019 08:23:00 AM EDT [facility] Name Value Range Interpretation Code Description Data Jing rce(s) Supporting Document(s) TSH 0.61 uIU/ml 0.36-3.74 Normal (applies to non-numeric resu lts) [facility] Concentrations of Biotin above 100 ng/mL can potentially result ininterference.The above 1 analytes were performed by [facility], ,[place] [address] ID Date Data Source [id number] 11/10/2019 08:23:00 AM EDT [facility] Name Value Range Interpretation Code Description Data Jing rce(s) Supporting Document(s) T4 6.4 ug/dl 4.5-12.1 Normal (applies to non-numeric resul ts) [facility] Sulfasalazine has the potential to false ly elevate Thyroxine results. Sulfapyridine has the potential to falsely depress Thyroxine results. Baseline values before medication administration are recommended. ATTENTION: Effective 03/22/2017The reference range for T4 has been updated:Previous Reference Range: 4.5-12.9 ug/dlNew Reference Range: Female: 4.8-13.9 ug/dlMale: 4.5-12.1 ug/dl The above 1 analytes were performed by [facility], ,[place] [address] ID Date Data Source [id number] 11/10/2019 08:23:00 AM EDT [facility] Name Value Range Interpretation Code Description Data Jing rce(s) Supporting Document(s) AST 31 IU/L 15-37 Normal (applies to non-numeric resul ts) [facility] Sulfasalazine and sulfapyridine have the potential to falsely depressAspartate Aminotransferase results. Baseline values before medication administration are recommended. ALT 68 IU/L 16-61 Above high normal [facility] Sulfasalazine and sulfapyridine have the potential to falsely depressAlanine Aminotransferase results. Baseline values before medication administration are recommended. Alkaline Phosphatase 63 mIU/ml 50-136 Normal (applies to non-num mikey results) [facility] Total Bilirubin 0.60 mg/dl 0.20-1.00 Normal (applies to non-numeric results) [facility] Blood Urea Nitrogen 16 mg/dl 7-18 Normal (applies to non-nume lorenza results) [facility] Creatinine 1.01 mg/dl 0.67-1.17 Normal (applies to non-numeric resul ts) [facility] N-Acetylcysteine (NAC) and Metamizole conteh ve the potential to falselydepress Creatinine results. Baseline values before medication adminstration are recommended. Patients undergoing treatment with phenindione will have falselydepressed results. Patients on phenindione therapy should be tested with an alternativeCREA method.Toxic levels of acetaminophen may lead to falsely depressed results forpatient samples. Glomerular Filtration Rate 79.00 mL/min/1.73m2 [facility] GFR Reference Ranges:Normal Function or Mild Renal Disease,if clinically at risk:>or= 60Moderately decreased:30 - 59Severely decreased:15 - 29Renal Failure:<15 Please note that the MDRD equation requires an additional adjustment forAfrican-Americans (multiply the GFR result by 1.210).Glomarular Filtration Rate (GFR) is estimated based on the MDRDequation, which assumes a steady state for creatinine ([place]az[place] Int Med 139/2 137-149, 2003), as recommended by the NationalKidney Disease Education Program in conjunction with the National Institutes of Health and the National KidneyFoundation. The Pasco method used in calculating this result is traceable to IDMS standards. Glucose 82 mg/dl 70-110 Normal (applies to non-numeric resul ts) [facility] Sulfasalazine has the potential to false ly depress Glucose results. Sulfapyridine has the potential to falsely elevate Glucose results. Baseline values before medication administration are recommended. Calcium 8.8 mg/dl 8.5-10.1 Normal (applies to non-numeric resul ts) [facility] Total Protein 7.0 g/dl 6.4-8.2 Normal (applies to non-numeric re sults) [facility] Albumin 3.5 g/dl 3.4-5.0 Normal (applies to non-numeric resul ts) [facility] Sodium 140 mEq/L 136-145 Normal (applies to non-numeric resul ts) [facility] Potassium 4.0 mEq/L 3.5-5.1 Normal (applies to non-numeric resul ts) [facility] Chloride 110.0 mEq/L 98.0-107.0 Above high normal [facility] Anion Gap 9.0 [facility] Carbon Dioxide 25.0 mMol/L 21.0-32.0 Normal (applies to non-numeric results) [facility] The above 16 analytes were performed by [facility] [id number], ,[place] [id number] ID Date Data Source [id number] 11/10/2019 08:17:00 AM EDT [facility] Name Value Range Interpretation Code Description Data Jing rce(s) Supporting Document(s) [place] 0.90 mEq/L 0.6-1.2 Normal (applies to non-numeric resul ts) [facility] The above 1 analytes were performed by [facility] [id number], ,[place] [address] ID Date Data Source [id number] 11/10/2019 05:22:32 AM EDT [facility] Name Value Range Interpretation Code Description Data Jing rce(s) Supporting Document(s) Nursing Note [facility] HFACPi8dLfCWXjAd33/QESpvNGXyf2PgXJjzEJv5JNceJCEuK3RzULL9kE8xJKJ1NZqZWpIcHgPyOFT5 [facility] [file] AgICAgICAgICAgICAgICAgICAgICAgICAgICAgICAg ICAgICAgICAgICAgICAgICAgICAgICAgICAgICAgICAgICAgICAgICAgICAgICANCiAgICAgICAgICAg ICAgICAgICAgICAgICAgICAgICAgICAgICAgICAgICAgICAgICAgICAgICAgICAgICAgICAgICAgICAg ICAgICAgICAgICAgICAgICAgICAgICAgICAgICANCi AgICAgICAgICAgICAgICAgICAgICAgICAgICAgICAgICAgICAgICAgICAgICAgICAgICAgICAgICAgIC AgICAgICAgICAgICAgICAgICAgICAgICAgICAgICAgICAgICAgICANCiAgICAgICAgICAgICAgICAgIC AgICAgICAgICAgICAgICAgICAgICAgICAgICAgICAg ICAgICAgICAgICAgICAgICAgICAgICAgICAgICAgICAgICAgICAgICAgICAgICAgICANCiAgICAgICAg ICAgICAgICAgICAgICAgICAgICAgICAgICAgICAgICAgICAgICAgICAgICAgICAgICAgICAgICAgICAg ICAgICAgICAgICAgICAgICAgICAgICAgICAgICAgIC ANCiAgICAgICAgICAgICAgICAgICAgICAgICAgICAgICAgICAgICAgICAgICAgICAgICAgICAgICAgIC AgICAgICAgICAgICAgICAgICAgICAgICAgICAgICAgICAgICAgICAgICANCiAgICAgICAgICAgICAgIC AgICAgICAgICAgICAgICAgICAgICAgICAgICAgICAg ICAgICAgICAgICAgICAgICAgICAgICAgICAgICAgICAgICAgICAgICAgICAgICAgICAgICANCiAgICAg ICAgICAgICAgICAgICAgICAgICAgICAgICAgICAgICAgICAgICAgICAgICAgICAgICAgICAgICAgICAg ICAgICAgICAgICAgICAgICAgICAgICAgICAgICAgIC AgICANCiAgICAgICAgICAgICAgICAgICAgICAgICAgICAgICAgICAgICAgICAgICAgICAgICAgICAgIC AgICAgICAgICAgICAgICAgICAgICAgICAgICAgICAgICAgICAgICAgICAgICANCiAgICAgICAgICAgIC AgICAgICAgICAgICAgICAgICAgICAgICAgICAgICAg ICAgICAgICAgICAgICAgICAgICAgICAgICAgICAgICAgICAgICAgICAgICAgICAgICAgICAgICANCjw/ pUZbA5judKIcbkP1F0vpWv6XGh9OSN2cb6YeSUQqLTqwphMqGagNGxBtHKMnJteAPsq7WWicOG8JoWBb H9SfT0IaDAwzKP2XVUUoSJTprHAySEChOMJyXkS4HP IdONfiAM6HxRIkCTceUBYoJTMwOL2ZOAZcR666dsShMK5KTr9IHrRfXR4kzi1BKXscAXErAgfJOhx1SU ejVA5UnMDmaTZlRLWzWBSTSiVvV5kds8KuIVtrBMLCTNpyKD2Or3BejMAvYMw+Sz8KSB3fz2YyLIjyMX AcIX2vyj5QYHjZEwBwZ0JrxJvxIC11omAbuwwnAz76 GTCtqYBKh0UsqBQkQJFxz4VlEUOVQXE1QRaaPd2jHPQwTDM4LrRzHGSEOI9CAQQrNCXojIJvLVEzBUBT RT9SZEiyAGT8BkohylTbxLXcBDbxIC5ZRTHxnbVgEQeoMTMHTXz+Ok9LWN8ry6VhXLckCAGzQY2qrk8A KKhATtKmD8Y4yQUyK3G1VFpwFe1UYKTvRYJtHPLvYT ECKKtpAZ5SPW8ktiH1OD0WwSKzONZgPIEsaNEpMYp6S00htOSwTKwuJT8IWOL+Rambo+Nb4RXYPzLQYxDP JtHsFjIITUMfTlG9CgF1GQs4OjM0BcPK94jShdppXoDXdfUF4ZHS3xHPJeSLMBRB1WuVZzzL6yiiLtAm FtBIEGPbRsK19apKBmHNNnDCS0EDSbXk5ASXFpM6Rx vySraTzbkeTmKSBbUOYVRL9FUQvuekSdxJZemPkfXR13qPxvJM6YKl8LBsKuDN4izp7ZwPMxAo7XNFTf UC8OFOQcTSPlDWOoPBN4VJBkMoOwWPltOLQlAHRwTRD8XTNzANSmSY3JEtTtVSEuBZZcMbZsSLIgYVJl va9NXVRcTUCzNdU9DBItZKIdHWJlNGmmQZHeISIsXW D7ITFcPATjQW3YMjQdEDKsWBZsAjgoPGCvGCBnzi0SKTKgUNQbJPC9SCYdEPXoDGJuBVeuHJOcLXWzHr K6KAGxKBCsTS2MNdHpKMVrAGU7XJBeVBWiKOKlnx1BVVJfJKCjHyQpETUePLOxKNLmAMhyGQDtMMQfDB l3UFBfUYDeWX8ZSyWuMXZmFRR4FLEjUAPbMPLalw5S GAMsSNPeOvc1QzMqMCVlNINeXJglOHJqKGN7XDXlNFLyBZVyWU1OKkQsFXWuFBFfCoGfTTGwYEUffm6J SRQuGKGkXUVuNuOiLWUyMJLaAIrhGZXnOJS3JuW2KVSvQINdEL2MEgLvJUZvPPlqDpylTCRoTDXyha4M PGLtQJUsQtNfVAOaVHVnAZJfHRwgICKfEJB0LjruVL KuGKVeSU6NZlQfWAtfMDJEDcg7DPzcZ1z0NPPkIZ5GI1Phj3WkXLytYMGEZJiyQW1yjyFjHQRwCs1MP1 hAMur8VwA4DZR3WYRxPIbvH8UgNnJrNdtpJCr8TuOfFLgmYj4nKNCoPOciVRo0DMAuBVH1AUAkSZZxS5 JoSRunG7DvRFOvZoAoZJ6CEk2ZXgX3ARH9nUWiRs2LSvLsBs9RHLUUV2UZIq== ID Date Data Source [id number] 11/09/2019 11:20:34 PM EDT [facility] Name Value Range Interpretation Code Description Data Jing rce(s) Supporting Document(s) Nursing Note [facility] RKEHRw9oLgIRSwWr42/EHOfhSHXlb6RaXCntWIw2FTvhOIJoZ0OaJUH0mV6hWWV5JQtKYnSgVcNfZBD0 lbm [file] llNDQ+GT7wCLp+Lu4Tt7VvkzC7obUlQUmzAKz9BA4MWARFF5ZOHf== ID Date Data Source [id number] 11/09/2019 10:19:07 PM EDT [facility] Name Value Range Interpretation Code Description Data Jing rce(s) Supporting Document(s) Nursing Note [facility] JKSPUg7pOuEYLqCt21/HSIclJVPhh5NbFDheMAn0SIxtIBKyE6QsHVH5hX7aZOA7ZSmIBtNsSkTkTYC4 lbm [file] ICAgICAgICAgICAgICAgICAgICAgICAgICAgICAgIC BwUOQjUGOuXLPjJOWzJCOhXOBaRYMyDM5DVJQrBVAcNOGaSEXgPJYySELiHJDrABBrCONwEWHoIQHvKW AgICAgICAgICAgICAgICAgICAgICAgICAgICAgICAgICAgICAgICAgICAgICAgICAgICAgICAgICAgIC StKENsQB0FNNJaYKDuFCBvZJZsPEHpOEExTNQbANMx ICAgICAgICAgICAgICAgICAgICAgICAgICAgICAgICAgICAgICAgICAgICAgICAgICAgICAgICAgICAg YPFqAKVwRSLfVZGnSTCyXY5RKLWfVSOkFNVcCTVtBBMdNAWwHBNuWUScMJFmRNZjMJEsPAVgNKNpYXEn ICAgICAgICAgICAgICAgICAgICAgICAgICAgICAgIC FcPISgVZFrSYVlSLKeEKZhRBVvWQEjCGDrWK3JKNNmURGeBUIcFXMpQQLyFLRzFAHtBEXhRAJjZAJkFU AgICAgICAgICAgICAgICAgICAgICAgICAgICAgICAgICAgICAgICAgICAgICAgICAgICAgICAgICAgIC OsAXBrQJVqUZ1GTUShSDTdLERpNUXbYZKaWFEpSGPe ICAgICAgICAgICAgICAgICAgICAgICAgICAgICAgICAgICAgICAgICAgICAgICAgICAgICAgICAgICAg YRXbQHCpBXUpJXIaHAAfFROgMS4SRDSzCPXhYRIaBQAwWFLqTXSaSEAoLVXkXVBwFPIcHATbFIEhHADs ICAgICAgICAgICAgICAgICAgICAgICAgICAgICAgIC OdZYKiWDSiVVIkQBSrGAIcXFAzTHHsJLIuACAvAD5KVRRhAHNzBBXgSGKdFPFdSKZcLZZxULMoFJMiRA AgICAgICAgICAgICAgICAgICAgICAgICAgICAgICAgICAgICAgICAgICAgICAgICAgICAgICAgICAgIC EeSRTzYTReEJVwLK8DVAXhRJQsEFTqDSSyOOKgUFYd ICAgICAgICAgICAgICAgICAgICAgICAgICAgICAgICAgICAgICAgICAgICAgICAgICAgICAgICAgICAg DYOzTXJfFUGvRRNzLJJqBYUqHNOxPM4BDCTwOWTuBVTnLBQtUWUdHNGfRRTuFCVmOZXmGFHkANEeDOWx ICAgICAgICAgICAgICAgICAgICAgICAgICAgICAgIC NgOUGaBJLmMJQlVNRmLBAgCBEjNZKkPPQrLCUzMJJcYY5RQP65vCFhp2S1UBUkEQ8byzt/Pi5QBFqalv CeaHDkSU9WHlTqTM9rhs0NRyRfWQ3qjs4JGIcBEbLrJ4M5rXDfOSSbORAYFpMfP43fFPwgCy69CWqlVR GoIbHxINq0Ac5SVpJbH2xpISCiKmW0TISgQtBmWEdv QW7Zx7SgdUQnHTv+Pk8QZG7is3LuFHprWfBdQJ9slu4CYAgUUpUnW5ZwavE8XIYlBUYgAp6NKHVqEULv uQPdQcYoFVTCQsItA0LnwR45TAUWRd6+TDuojrEqUkmPIeRiAUIbv4UlSPb2KX2PZBGvMDb2rANiPjNp d2maFmVGo4PfTPP9NFYvWXbxWYWCy2ejYLTjSQELAJ S2ZLovGi0qQNPcNOR4UkVbVAARTV6GLBFoDZVmoHKnEUFpSKXTPJ8XKYvbBVN6OhwojzFqgOWoYKriEV 9QYXJlbnQgMjIgMCBSDQo+Qj2HOY3px7BlGQguAAVdEE0hzg0DGUvFZjIrQ5G9iVItO9U5BEavJi8RUV MhTWFcMwHjKSMCSPsaCX6GHW0mwnT8UG8IkWYuAHSz QRIsmCQdGBh8B37miWToYBssOV4JDDF+Rambo+Mg9UCJNnNXKjPXOfEoOkISZZMuSqC7ClA9GKe8ZxI5Qc BK75mYcwpfBiMGmyEV4VWZ4dLPFgSWDOBY1HgQTjrA6clmYgHpWbETOXLiLyM16qaCSlWVFeVDZsFJYs Up1JTXLjH7RsmfKurFqlkwTcBPYuQLKATN6DQWuldu VfgQHghGvtXU17wXihYO1RSd3JUsAuAX5csc4FdJXrAc2TIDLkJY5TRYDhUYXfNOTqQGR0EJCtLzVuTV kmNEOpCNJmIOO1EAJtHRFmQI2DXjWuQCInSXi0RWRqDDPuGZTigx4LENVqPMKfTGToNIVvMVGeKIFjEB ljMBNhWBGcPAB1ZJBqJPWeCM3OCsOpAGXsOBA2ZiAh WKIaVGGhki2QVOExNBXfCfPqFrPyPAJkZNRaGNcgZXPuDFJsWGp5NRNqHGKbDK3FSuChZRPaUAMoWBQg VZVbWHKroi3TKXIxHJFdUrR7AQMeLVLbIDCxRPeuABCeVZJ5IDEwEDJeREHnZR6FEdXlHCZuIKE7Kgqz ZIXeDYMzox9DLDQyROJbZEevDYEqHZGqQAEtMWhkOA LlTXU0XBA1THDhWOMbIL3OFbCnXFCoAJe5CLOtRDAvAZKuyp7KBSUaAGQtVnA3MaVuSHOmJEOnYAgdSK TzDDW2KIXcKCDcRBJlUF4LExUjYKKfAKxaOsvyHHCzQBEqha1OIZFnXBYhCPPdJYYaGIChWXHjPHuiUL UbDWL2BxK7VUVlHZGkAX0SZgRpDXAyGKmhVaoaNLTk WHHked0HHSUcPGDtOAi4ZVFgTEOkZLAvVMxxUZZcEVNfVoXxRYTgQPEhMY2JUkPmNMMdZeDwSTBsQVJj NEDkws5KMBFpPWPsCYS2NDLiXNPhFQLqOSd9bqKipAKrKWo5SM7LG7GpjwZrGoFPBs0Gk844BNC7XLBy Wl1LL8gmWo0pSGLtCZAIWe4OICl8VzX5ZHD6QaJeZa L5DeVeHqSsHEMlIJp5VyJ9BbmeZ9G+SXzqDHvuYYa0SWSkIqZtTbWgVDW6KiU0UTPxZrleAGYrFi3uZR ANCj4+NGxsrDZszVyxTIMVOpHmGbnyEDihNMNPJk4I ID Date Data Source [id number] 11/09/2019 07:52:38 PM EDT [facility] Name Value Range Interpretation Code Description Data Jing rce(s) Supporting Document(s) Care Plan [facility] NLOHQv7sIxAVVkCz62/FDLgmEMUon5ScUXwfWOr2BPzkGWHpG9HaUCZ6eW7qYUC3GEvAStVhSkOoHLQ8 lbm [file] AWrqRWx8B3FpVJJ6DIY5LHK4PFPfEh5kUOAFOe2+CWfiiHEjdBngLQKCAyO2PHKnQPtjJZTWHm2F ID Date Data Source [id number] 11/09/2019 07:10:11 PM EDT [facility] Name Value Range Interpretation Code Description Data Jing rce(s) Supporting Document(s) ED Provider Notes [facility] VCDQUm7kVzIJMiQg66/LCDciTZAzr6CjYNffGGo9FIrjWOKqP8XhJZT8cK7nQFH6RUmISrZdTuCbVTS4 lbm [file] career professional+CSDmqZIE6ZWAoU/M/zbc4r9Za0v34L4e76/c0G0pEJ0bUfL0/WGEJFZ45ERwhr3rlcswBkHQEvM+ [file] ICAgICAgICAgICAgICAgICAgICAgICAgICAgICAgICAgICAgICAgICAgICAgICAgICAgICAgICAgICAg ICANCiAgICAgICAgICAgICAgICAgICAgICAgICAgIC AgICAgICAgICAgICAgICAgICAgICAgICAgICAgICAgICAgICAgICAgICAgICAgICAgICAgICAgICAgIC AgICAgICAgICAgICANCiAgICAgICAgICAgICAgICAgICAgICAgICAgICAgICAgICAgICAgICAgICAgIC AgICAgICAgICAgICAgICAgICAgICAgICAgICAgICAg ICAgICAgICAgICAgICAgICAgICAgICANCiAgICAgICAgICAgICAgICAgICAgICAgICAgICAgICAgICAg ICAgICAgICAgICAgICAgICAgICAgICAgICAgICAgICAgICAgICAgICAgICAgICAgICAgICAgICAgICAg ICAgICANCiAgICAgICAgICAgICAgICAgICAgICAgIC AgICAgICAgICAgICAgICAgICAgICAgICAgICAgICAgICAgICAgICAgICAgICAgICAgICAgICAgICAgIC AgICAgICAgICAgICAgICANCiAgICAgICAgICAgICAgICAgICAgICAgICAgICAgICAgICAgICAgICAgIC AgICAgICAgICAgICAgICAgICAgICAgICAgICAgICAg ICAgICAgICAgICAgICAgICAgICAgICAgICANCiAgICAgICAgICAgICAgICAgICAgICAgICAgICAgICAg ICAgICAgICAgICAgICAgICAgICAgICAgICAgICAgICAgICAgICAgICAgICAgICAgICAgICAgICAgICAg ICAgICAgICANCiAgICAgICAgICAgICAgICAgICAgIC AgICAgICAgICAgICAgICAgICAgICAgICAgICAgICAgICAgICAgICAgICAgICAgICAgICAgICAgICAgIC AgICAgICAgICAgICAgICAgICANCiAgICAgICAgICAgICAgICAgICAgICAgICAgICAgICAgICAgICAgIC AgICAgICAgICAgICAgICAgICAgICAgICAgICAgICAg ICAgICAgICAgICAgICAgICAgICAgICAgICAgICANCiAgICAgICAgICAgICAgICAgICAgICAgICAgICAg ICAgICAgICAgICAgICAgICAgICAgICAgICAgICAgICAgICAgICAgICAgICAgICAgICAgICAgICAgICAg ICAgICAgICAgICANCjw/uIXcI7ngoGAhloQ9F6kjQe 3FZk3VGE4hc3PqULUdLZkakrFsGvsKAuCiYJCwEhiEKqi5NOaqHU3QxAYcY5EyR8GqFAqzEN5JFPAtOF OpzOYhKRGgFZXjOzB3FYOoTOcfBX8PcHWxEMcnYCDkRGAfMiFvVRBiVTNpZWKkEK8BIGWcM160qeNaLn 9JCo6WOdJxFN4fyt8ZLyilDTLsIgwXFrt3ZBofAG4Y rVQajSSwVDBiRJQMNsXyS6oey1JfKnAuSVQEQSbbBZ6Hr9BjtTGoWWi+Ey7VFR4tt9YvFUhxTPUpTM4b xm7DERaMCzOfS8GwcWcyUSWAMZIbk8YdNGYsCF9viYQkLDE4SWBpBV5sr4RmTWHeA5PtcCi5kabeFBHm FAPaFM81AwSvCfUrLVL9WdHjSI5sEEwgJI2QFEP5KC ucPFQnHRBvD4qNQgAcXRzsOMOchUsiYE2MUaOsE1LjwaVjxZUsFRReFUDIDh1+DQplbmRvYmoNCjMxID Qzp4LlPWa5UV2GKXMeJMzmFI0DRJJzdN4hFFhqFL6VDwZuLjRqONTJPlIaO91hgDDcWNk2U7QkJcFeHL VkRmlsZXMgPDwvTmFtZXMgWyBdDQogID4+ID4+DQog ER1ONUqxwjDiLCQsRp3FKZDjOEIkPP8hIYBvXJOoY0T7cHsjCDICGuLlB2odexaaXU0mAIAoP294nUcj klXmYYU2LRNbIr6KWXFlNTL5XVBdfJNaSdviKWBRWNevNX2GiHDlOCJ9tX7hMAqhTPHnSJSrJ1pQZjQt oHdrXY64aGvluvCysXMsLRk+Jb2PCA2yo4VaNDh5kf OcONpmGZAhMTbaBYPkAOMoRRThYMX1ETK3MBCNHlVpFOAtEUSbEFftJCWiNHSufq3DIYQpRYBeHdBlGA VrXYZyLLZcATyvZWXiDVT8HIUsOYBgMPFbZJ1FYdVcBMNaEFSiLNbnYQGjVGVizs8IMQHkWNEnMrVoXR IvKSZaPBWsQXbtMRAiYLEsPKW6OXHzILAeSN2COyZs WUCeZNA4GOOmSYSmNUWqjq2OICDfZFFpLMP0CEWvZMDkQFWiTUvkUTCiNQX0Qgk1JWJdEWDqRN5BBoDg KBKcTMe6WVqqSJVwFDEpik8ZKENkEVYhWOM7XMAuPMDeFYHuKHfpNOFiJNX5TxAqTWCwRBAmTZ1GGpBn IZKtOLi9DCwdHOBeYCMwlg6HPNMaXCBjYVzwTWPrYL FjTHKjANwyLSFdYMAwLVM4WMZjDANpRB5EKfOkNHNiSFOgLZwfAQYmPNGahx7PHCQpQFUlGVU9QrLnBI InMCYhCKmgUNMrUPEhWMS2ZVAuZOVbBO2VStDgENEeDHD7VPPiUKIaVBVjic8IAKWeVKQmFqLdKsVdGH PkJTAjUFtcWSTqLAEhTJYzMGNxNSXjHC7POkYcXJCm YRN1YKejWJSgIZMmfp4VOBByUHPxJNM5YwGmPMJxVEXwCCthCOKdUJT1Zol5UAAnEDSgMI3HPvLsAZRr TfS4CFHePBNkBOPugc5WWBGcXMLgRpTwVtFfZXVsFSHtVLomDWElCHS3Eeq9SQVsSSIrPA7FJlVwVLEf IwQ7QKIyHOXnRQIvin4BCCBjTDPyNED6GWWdWAMpHP AvZTkiYYYvFEK3ExElMYPnTBRbEW1PVcFsZEAqNwfvTWysDZFuQTYdvj2BqDHdoHpgas3GKLtFHo0XxG shKVLiNMboDr9uySGjUVTgUKSUNy3EsuUjXVLwAQPLDEitSHCdZXR1Y5PpBNBuXXGjQVDaTxl4WEE5PT NgQQUvWbC5IcLqDoE7SlDcQNGaAFY0H0S6KKD3QNM0 KwpcTRYwDEDwMGm3QdK+JX3oUIh+Er2Da9KjzbW9itIrILfxPZYhSV2RGNPWU6VJHg== ID Date Data Source [id number] 11/09/2019 05:57:41 PM EDT [facility] Name Value Range Interpretation Code Description Data Jing rce(s) Supporting Document(s) ED Triage Notes [facility] DHTVVr9tSnEUCgOe54/FJQavQGUry0IgIXesVNr6HPiwFJGfT0RnKVE5mA9lXHY2LWiKQuEwMaOqRZH3 lbm [file] 9GDQo= ID Date Data Source [id number] 10/20/2019 11:51:05 AM EDT [facility] Name Value Range Interpretation Code Description Data Jing rce(s) Supporting Document(s) Progress Note [facility] CPDVOm8kCbDBSqXs29/TZCfcQLZun7OqCJadPTj4RKbgFYAsK2KlFGY5iO0hEKX3FQoSYuVoWiYnPDM7 lbm [file] AgICAgICAgICAgICAgICAgICAgICAgICAgICAgICAg ICAgICAgICAgICAgICAgICAgICAgICAgICAgICAgICAgICAgICANCiAgICAgICAgICAgICAgICAgICAg ICAgICAgICAgICAgICAgICAgICAgICAgICAgICAgICAgICAgICAgICAgICAgICAgICAgICAgICAgICAg ICAgICAgICAgICAgICAgICAgICANCiAgICAgICAgIC AgICAgICAgICAgICAgICAgICAgICAgICAgICAgICAgICAgICAgICAgICAgICAgICAgICAgICAgICAgIC AgICAgICAgICAgICAgICAgICAgICAgICAgICAgICANCiAgICAgICAgICAgICAgICAgICAgICAgICAgIC AgICAgICAgICAgICAgICAgICAgICAgICAgICAgICAg ICAgICAgICAgICAgICAgICAgICAgICAgICAgICAgICAgICAgICAgICANCiAgICAgICAgICAgICAgICAg ICAgICAgICAgICAgICAgICAgICAgICAgICAgICAgICAgICAgICAgICAgICAgICAgICAgICAgICAgICAg ICAgICAgICAgICAgICAgICAgICAgICANCiAgICAgIC AgICAgICAgICAgICAgICAgICAgICAgICAgICAgICAgICAgICAgICAgICAgICAgICAgICAgICAgICAgIC AgICAgICAgICAgICAgICAgICAgICAgICAgICAgICAgICANCiAgICAgICAgICAgICAgICAgICAgICAgIC AgICAgICAgICAgICAgICAgICAgICAgICAgICAgICAg ICAgICAgICAgICAgICAgICAgICAgICAgICAgICAgICAgICAgICAgICAgICANCiAgICAgICAgICAgICAg ICAgICAgICAgICAgICAgICAgICAgICAgICAgICAgICAgICAgICAgICAgICAgICAgICAgICAgICAgICAg ICAgICAgICAgICAgICAgICAgICAgICAgICANCiAgIC AgICAgICAgICAgICAgICAgICAgICAgICAgICAgICAgICAgICAgICAgICAgICAgICAgICAgICAgICAgIC AgICAgICAgICAgICAgICAgICAgICAgICAgICAgICAgICAgICANCiAgICAgICAgICAgICAgICAgICAgIC AgICAgICAgICAgICAgICAgICAgICAgICAgICAgICAg ICAgICAgICAgICAgICAgICAgICAgICAgICAgICAgICAgICAgICAgICAgICAgICANCjw/fQLpY6zggHIs erS5W2bkZy8NBa4KVG4ub4YyXTPkDKahxiEzZihNQwXwXPXbPfiBXdm8CSuuMK7InMMdA2OtG4SoDFag FZ1BZQEpISNtvALzQPFdHWHiNiW9JDVbHLzgTM5BxQ RlDSftTQObFMSvMgQpGCUpLRQtTRLzVEJtDNWQOAXkAIAqIfJuSRWsNVErQHgoNCGFXKZ0VMXtNbXgGJ fpZK7Pi1HouWT5PMl+Po3SFI3pc5FdIOlcKALhVH3vuk4BXGzEQaZoR2OinjU3LYKvBQGjMq7QQPUoRA TixOH9ZICrRTGZJoNeE0HglA55RVZGIe3+DQplbmRv CrsWDzElSGXha9NhHOj5TW5UXBDpRKa9bJZyDCIsC4Xeq3MsRi77SNCnMsqjYeHpatBaFCTHJOVjtIEe slduXNMwLWGoHA1kOk5mWHCpWOYcFuOgKKMTEA2QTLWqIWTtbZTeLDZfLCSNSN5NRDujPDY1SUQhfpCm lHRrTFyjQR4ISXZefwUqBvmhFXDSGEu+Xt1IRY3hv0 EdDUx3YNPvPA5nur3QRIvHYsNxE6N5pXTmX2T0NTicJi0BTYJkRXVqQpsoVVORUVkzHT6JNL5ysxO7XB 6BaQThDCRlJCEdsPIrBBg4W22opSRiLEuoCU2GMVE+Rambo+Ln8TQTLsNOHeIDOlNxOzGHQPGaCoN7DlN1 AOy1BcP0SyEQ06iGzywtIoDFkpIB6YIA8qAAIlINQK PR0ZtYIyiZ9vqqNpPSMmJCOXFaYxH80plTNuFONbINY3LESyIq2PIJFgU9CjupBsiVzkagLmGZTfBXRL QI7EHAoywuZobWFrjHcaYE23zMkhAX0GFj8RRyMhYM3rlm6DeJIlXc5EFYI2Lu6BFCEpILTaKKHiHEA4 OCEhHeLmNEaiMAHsTDHgADL8GQQwAUSgFG3QLoXvIO RzZdi3SQPvZYGcRPMvxe0MPGTqFYX0UVF7ShZiONKlOXKfGBrvSDXbGBGsSDS1AQBdZGPqZG0HFhXzEN XfJQDrZXZjTCErFGUgjq5YPDEfEYSdTKRyZBTeWMUkTYWiMKrsBWDrVKR9WFioOPZlDPQvMU6RBjUxFW LmSRyxLpwyDTDdBHTqox6JFVAbNNDnWWo8PeFrIRDs AWMgOZwoSWPdEDAoDNawYTTxKRMyCM4GNyAzAYUqCBS1YQczZIQaNEDvry7FCAEhSXPfRvTlYTNzETEu HSTlWBelUNMmQAZ4OzA1ZQQjOGVnWH5NLlDrBXNfBQZ4IrVtLDDfTTXwxh9VNNOoXDOsIyB8PEOqDRLk XOMiDZobZKDmUCC8Zqp2SICqTCYqUA4UGiLeDWSyAa TqXlNzGGKnLGRqcj8ILDHwAZTdNMJ6DZIwHBWmWNVsHMhqVUTaJTKmKJPvHDQzXUTuCC5JKjKnPIArPc XhXHuaMTTfREYpqo4PRIVfTOMtFdUuSYGrULQsPVJaNYekEIBdFHLbMYL0DKVfWMAyEP8YGzPkHJJeMr R7CXorUZNpSJBees8AUTEgGPOdCcP1RMAeJVVbQQAq YFguOELkUBWbCjBzGIDqXVKpLZ2SIcSuAKDbWfO7IoytVZLuUVRxps8VOIWzWFLnRFG0ZFKuALEcNIUb CKleXGRiYBF9OoyvOIUbCXJjBE5VDrKiNMQeBuB4MATeXPUxTTLoth7OSRDmYGGkGzF8WgZrWJNbQIMw ZYkiTVRpOCM8Skp5GXLjEZUiKQ2QSoKyKOEgClsmCW CvFMGeTZBaox6QGWQzERBvQvUtZjQpYYTmUZLsEFecXMNaTSP4RuZiJSWqVCUqMK0ZAoBbTARqXkr2FQ VbTUEpJLYipu7EORMpPYRjTFm8TeIuBLLyMWVmYVtsJOQvNCI5LACsXSCkIQHpSP0AKrRzMMApQnojTS DnOOBeMLFkzu8KWQWqGQA7SSneFDNiNKWuESWuLNdg SKGiBDIyFFE3IMWrFWUkVA4TKtTqDPFwYVToZbRbAGAsLWKfow4VjXUhnJpela5MFJdCEc1EmFpsCCIw VIamHo7seLJ8QHHeXTFCDt3QtxOgNRInZDHBZTciOXUhPCYpFgXbZmQ7YZndGBR8REM2AjYcBXF1LRJ2 B0P1FjS5QvC3DtF9P1SbKGYhQCHrBps9ZvozDVWdGU ZlMjQzYzkzNDc+HK4nQRg+Cr3Nl1MliyW1kuJoSHk0BEDvGJ0KAQXGX1FUIw== ID Date Data Source [id number] 10/17/2019 04:02:00 PM [facility] Hematopathology Report See Addendum Eric wName: YUDELKA RAMIREZ. 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 T-cell PCR is pending.Borderline monocytosis.Marcelino Swann M.D.;Re sident PathologistElectronically Signed By MARY STINSON M.D. Attending Pathologist 10/17/201916:02:51The attending pathologist named above attests that he/she has personallyreviewed the relevant preparation(s) for the specimen(s) and rendered thefinal diagnosis. Addendum 10/22/2019 T-cell PCR shows three clonal bands ([id number]). These bands are slightlydifferent from those detected in April 2019 and are entirely differentfrom those detected in 2017 and 2018. 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 Addendum Electronically Signed By: Lisseth Villa M.D. 10/22/2019 10:45 ProceduresFlow Cytometry Date Ordered:10/16/2019 Status: Signed Out10/17/2019 InterpretationPERIPHERAL BLOOD: CBC performed [facility] #[id number](10/16/19)WBC 8.4 K/uLRBC 4.75 M/uLHgb 15.5 g/dLHct 44.9 %MCV 94.6 f LMCH 32.6 pgMCHC 34.5 g/dLRDW 12.9 %MPV 8.0 fLPlatelets 168 K/ulDifferential Count (100 cells):64 % Neutrophils 3 % Eosinophils 1 % Xqaxrbunm48 % Lymphocytes 9 % Monocytes-------100 % A peripheral blood film is reviewed. Lymphoid Panel: Ashley Ybarra [id number] following markers were assayed: CD45 (gate), CD2, CD3, CD4, CD5, CD7,CD8, CD10, CD19, CD20, CD38, CD56, CD57, [place], and Lambda.# events: [id number]: 98%Flow Cytometry Differential (CD45/SSC)Lymphocyte [place]: 37%CD45 dim [place]: 0%Monocyte [place]: 6%Granulocyte [place]: 50%Nucleated/Erythroid [place]: 2%The lymphocyte gate showsB-cells (CD19): 5%T-cells (CD3): 70%NK-cells (CD3-/CD56+): 20%[place]/Lambda Ratio: 1.9CD4/CD8 Ratio: 0.6Results: (expressed as % of lymphocyte gate)T-cell Markers: CD2 = 84, CD3 = 70, CD3/CD4 = 25, CD3/CD8 = 43, CD5 = 69,CD7 = 86, CD3/57 = 21B-cell markers: [place] = 3, Lambda = 2, CD19 = 5, CD20 = 5, CD19/10 = 1,CD19/CD5 = 1, CD38/CD20 = 4Light chain as % of B-Cells: CD19/[place] = 62, CD19/Lambda = 34CD19/CD5/[place] = 4, CD19/CD5/Lambda = 1CD19/CD10/[place] = 4, CD19/CD10/Lambda = 2NK cell Markers: CD56 = 23, CD57 = 38Other Markers: CD10 = 2, CD38 = 38Results: (expressed as % of CD45 dim gate)T-cell Markers: CD2 = 36, CD3 = 20, CD3/CD4 = 1, CD3/CD8 = 20, CD5 = 7,CD7 = 49, CD3/57 = 0B-cell markers: [place] = 0, Lambda = 0, CD19 = 4, CD20 = 2, CD19/10 = 3,CD19/CD5 = 0, CD38/CD20 = 2Light chain as % of B-Cells: CD19/[place] = 5, CD19/Lambda = 0CD19/CD5/[place] = 0, CD19/CD5/Lambda = 0CD19/CD10/[place] = 2, CD19/CD10/Lambda = 0NK cell Markers: CD5 6 = 9, CD57 = 1Other Markers: CD10 = 36, CD38 = 59 Results- CommentsLymphocytes consist predominantly of T cells with normal expression of panT-cell markers and decreased CD4/CD8 ratio, normal proportions of NK andcytotoxic T cells, and polyclonal B cells.Procedure Electronically Signed By:MARY STINSON M.D.10/17/2019 This report may include one or more immunohistochemical stain/fluorochromeconjugated monoclonal antibody results that use analyte specific reagents.All positive and negative controls have been reviewed by the attendingpathologist and are satisfactory. The tests were developed and theirperformance characteristics determined by [facility] Pathology department.They have not been cleared or approved by the US Food and DrugAdministration. The FDA has determined that such clearance or approval isnot necessary. Name Value Range Interpretation Code Description Data Jing rce(s) Supporting Document(s) ID Date Data Source [id number] 10/17/2019 01:50:10 PM EDT [facility] Name Value Range Interpretation Code Description Data Jing rce(s) Supporting Document(s) Protein [Mass/volume] in Urine 8 mg/dl [facility] Albumin/Protein.total in Urine by Electrophoresis [facility] Alpha 1 globulin/Protein.total in Serum or Plasma by Electrophoresis [facility] Alpha 2 globulin/Protein.total in Urine by Electrophoresis [facility] Beta globulin/Protein.total in Urine by Electrophoresis [facility] Gamma globulin/Protein.total in Urine by Electrophoresis [facility] Protein Fractions [Interpretation] in Urine by Electrophoresis [facility] Corrected 10/16 AT 1350: Previous Resul t was MILD PROTEINURIA IN SELECTIVE PATTERN. Pathologist name [facility] ID Date Data Source [id number] 10/17/2019 01:43:59 PM EDT [facility] Name Value Range Interpretation Code Description Data [facility] rce(s) Supporting Document(s) Protein [Mass/volume] in Serum or Plasma 7.4 g/dL 6.4-8.3 [facility] Albumin [Mass/volume] in Serum or Plasma by Electrophoresis 5.05 g/dL 3.80-5.78 [facility] Alpha 1 globulin [Mass/volume] in Serum or Plasma by Electro phoresis 0.13 g/dL 0.08-0.23 [facility] Alpha 2 globulin [Mass/volume] in Serum or Plasma by Electro phoresis 0.64 g/dL 0.45-0.92 [facility] Beta globulin [Mass/volume] in Serum or Plasma by Electropho resis 0.73 g/dL 0.50-1.03 [facility] Gamma globulin [Mass/volume] in Serum or Plasma by Electroph oresis 0.85 g/dL 0.54-1.30 [facility] Protein.monoclonal [Mass/volume] in Serum or Plasma by Electrophoresi s 0 [facility] NORMALLY MIGRATING SERUM PROTEINS. Pathologist name [facility] ID Date Data Source [id number] 10/17/2019 08:29:59 AM EDT [facility] Name Value Range Interpretation Code Description Data Jing rce(s) Supporting Document(s) Flow cytometry study [facility] ID Date Data Source [id number] [facility] Interpretation Code Description Data Jing rce(s) Supporting Document(s) Leukocytes [#/volume] in Blood by Automated count 8.4 10*3/uL 4-10 [facility] Erythrocytes [#/volume] in Blood by Automated count 4.75 10*6/uL 4.6- 6.1 [facility] Hemoglobin [Mass/volume] in Blood 15.5 g/dL 13.5-18 [facility] Hematocrit [Volume Fraction] of Blood by Automated count 44.9 % 4 1-53 [facility] Erythrocyte mean corpuscular volume [Entitic volume] by Auto mated count 94.6 fL 80-96 [facility] Erythrocyte mean corpuscular hemoglobin [Entitic mass] by Automated count 32.6 pg 27-33 [facility] Erythrocyte mean corpuscular hemoglobin concentration [Mass/volume] by Automated count 34.5 g/dL [facility]0-[facility] width [Ratio] by Automated count 12.9 % 11.5-14.5 [facility] Platelets [#/volume] in Blood by Automated count 168 10*3/uL 150-400 [facility] Differential cell count method - Blood [facility] Neutrophils/100 leukocytes in Blood by Automated count 55 % [facility] Lymphocytes/100 leukocytes in Blood by Automated count 29 % [facility] Monocytes/100 leukocytes in Blood by Automated count 10 % [facility] Eosinophils/100 leukocytes in Blood by Automated count 5 % [facility] Basophils/100 leukocytes in Blood by Automated count 1 % [facility] Neutrophils [#/volume] in Blood by Automated count 4.63 10*3/uL 1.8-7 .0 [facility] Lymphocytes [#/volume] in Blood by Automated count 2.39 10*3/uL 1.2-4 .0 [facility] Monocytes [#/volume] in Blood by Automated count 0.84 10*3/uL 0-0.8 H [facility] Eosinophils [#/volume] in Blood by Automated count 0.45 10*3/uL 0-0.5 [facility] Basophils [#/volume] in Blood by Automated count 0.07 10*3/uL 0-0.2 [facility] Nucleated erythrocytes/100 leukocytes [Ratio] in Blood by Automated count 0 /100{WBCs} 0-0 [facility] ID Date Data Source [id number] 10/16/2019 02:00:37 PM [facility] Name Value Range Interpretation Code Description Data Jing rce(s) Supporting Document(s) Lactate dehydrogenase [Enzymatic activit y/volume] in Serum or Plasma by Lactate to pyruvate reaction 181 U/L 122-225 [facility] ID Date Data Source [id number] 10/21/2019 03:56:00 PM [facility] Molecular Diagnostics ReportName: YUDELKA RAMIREZMRN: [id number] Number: [id number] Date: 10/16/2019 00:00Received Date: 10/20/2019 09:54Physician(s): CORNELIO FLETCHER,CORNELIO CHAPMAN,[facility] To:HUMBERTO MADRID PABEM, SYLVA,ROSARIOpecimen(s) ReceivedA: Peripheral Blood - T-cell, [id number] OF STUDY: T-cell Receptor Gamma Chain Gene - PCR AssaySPECIMEN TYPE: Peripheral Blood (#[id number])RESULTS: Positive Family I & III / J Major and Minor Positive - band ofabout 200bp and about 180bp Family II & IV / J Major andMinor Positive - band of about 180bp INTERPRETATION: 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 Pleasenote that this assay is a good marker for clonality but is an unreliablemarker of T-cell lineage. The specificity for T-cell lineage is about 77%. COMMENTS: Extracted DNA was amplified with primers specific for detectinga rearranged T-cell receptor Gamma Chain gene (van Randallen et al. Dbtnysra47:2257- 2317, 2003). A positive result is expected when the clonalpopulation constitutes 10% or more of the sample. Diagnostic sensitivityfor detecting T-cell clonality is about 90%. Demonstration of a clonalpopulation alone is not diagnostic of malignancy. The results of generearrangement studies should be reviewed in conjunction with morphology,immunophenotyping, and clinical findings.This test was developed and its performance determined by the Departmentof Pathology. It has not been cleared or approved by the U.S. Food andDrug Administration (FDA), the FDA has determined that such approval isnot necessary. The test has been validated and authorized for clinical useby the [facility] Dept. of Health ([facility]). kz/ Aleksandralectronically Signed By Joshua Garcia M.D. Attending Pathologist 10/21/2019 15:56:42 Name Value Range Interpretation Code Description Data Jing rce(s) Supporting Document(s) ID Date Data Source [id number] 04/29/2019 03:23:00 PM EST [facility] Name Value Range Interpretation Code Description Data Jing rce(s) Supporting Document(s) Alanine aminotransferase [Enzymatic activity/volume] in Serum or Pl asma 70 [facility] ([facility]) Albumin [Mass/volume] in Serum or Plasma 4.0 [facility] ([facility]) Calcium [Mass/volume] in Serum or Plasma 8.9 [facility] ([facility]) Alkaline phosphatase [Enzymatic activity/volume] in Serum or Plasma 8 0 [facility] ([facility]) Carbon dioxide, total [Moles/volume] in Serum or Plasma 31 [facility] Chloride [Moles/volume] in Serum or Plasma 105 [facility]) Potassium [Moles/volume] in Serum or Plasma 4.7 [facility]) Aspartate aminotransferase [Enzymatic activity/volume] in Se rum or Plasma 8.9 [facility] ([facility]) Protein [Mass/volume] in Serum or Plasma 7.2 [facility]) Sodium 139 [facility] [place] Glucose 79 70-100 [facility] [place] Urea nitrogen [Mass/volume] in Serum or Plasma 14 [facility]) Creatinine For GFR 1.04 [facility] ([facility]) ID Date Data Source [id number] 04/29/2019 03:23:00 PM EST [facility] ([facility] Name Value Range Interpretation Code Description Data Jing rce(s) Supporting Document(s) Hemoglobin A1c/Hemoglobin.total in Blood 4.9 [facility] ([facility]) ID Date Data Source [id number] 04/29/2019 03:23:00 PM EST [facility] ([facility]) Name Value Range Interpretation Code Description Data Jing rce(s) Supporting Document(s) White Blood Count 9.3 4.0-10.0 [facility]) Platelets 190 150-450 [facility] Hematocrit 44.9 [facility] ([facility]) Hemoglobin 15.3 [facility] ([facility]) Red Blood Count 4.67 4.30-6.10 [facility] ([facility]) ID Date Data Source [id number] 04/19/2019 10:24:19 AM [facility] Name Value Range Interpretation Code Description Data Jing rce(s) Supporting Document(s) Progress Note [facility] UFXTTe2jWnCKPaQt49/QYNrmKJEnn3DkAOhaWNe2CIwxSXKlG6TwBSU3tS1xZTH2VZhLHuMpNnTfCeA0 lbm [file] BARGE PILOT+Yt2XLUXaRNw4M5U1TIElBXo1W9KNQ8ITLGZbIP rlZHvfOZPtNVz5S6A6TCFxT3XIO2Jazspmhj2+XZ3MG45XJOSyPMa9M6U6qGKuY8E3cTzGsRX3DG1IQF 7DjLx3yPEstT0+FL5NA3FVZaIgTWh2X2W4bJCgV1Z8dBgRfVA3VH5DAK4AhXQfGIUtqgAqFq6cY4AFTA pEXjUOUQL7LK5VcBLpDH6VjKAZK6WryLOhHt0pHGut qLNjxL2kIf9yQXknGU8PMzEDYOjIQPC0DO3VjROsIB1RoTBMW4CxiERsMz4bPHuilGAfes9+CT2BJOVf Ya4TMy2+TSdncaUcGhcLPiH9EOOqk1GzNMn3RV1TUM8vkEcxMTS0Xf1PpZB5vAJgZ7zPNI9TfNRrZ79j mDMoEWBlLy7ZQfH2qcMalI5JGC55lLYsm7I9BXFpD6 sdOWtjq09oXVinTPxRBA6bKDGGOQggIBrvTLW1ShIoprrkYSDxNb6RKgPlXFx7fJ8lqND5TKL7WpceyQ IaAUqkLbOxCjFpOcZ1oHxrzzz2XPdlUR0sWEfuitmvILMmAkn+EPwjMZIeLIWuFvxUQGGgfX1ghjO1ji XtZRetnPDxDo0bo5p4AdftZx8lTo4aYYh6BxWsDzOa SULeLt8dkR72USudyxGbIb7HSyAkSLK2W6PiJsmULZA+AAxbLYpcgIt7kFNlJSXoRe0LKADiVHGwNEAh ICAgICAgICAgICAgICAgICAgICAgICAgICAgICAgICAgICAgICAgICAgICAgICAgICAgICAgICAgICAg ICAgICAgICAgICAgICAgICAgICAgICAgICAgICAgIA 0KICAgICAgICAgICAgICAgICAgICAgICAgICAgICAgICAgICAgICAgICAgICAgICAgICAgICAgICAgIC HeUSWrLIGcUACoKGTqENMjUPAsJJToZAKxPAXbMIFnELNzRGOjSPXyAM5MWWZeBTOxEAGcNSEnMMEsCT AgICAgICAgICAgICAgICAgICAgICAgICAgICAgICAg NOPqFXBfNQXtIGXmBLXuQYCyLCFfQJSgSDExZSHhVEMhSJBjGPFlWOJeWFCrNIMbQYMyLO0NUITqNUXn ICAgICAgICAgICAgICAgICAgICAgICAgICAgICAgICAgICAgICAgICAgICAgICAgICAgICAgICAgICAg ICAgICAgICAgICAgICAgICAgICAgICAgICAgICAgIC DdDJ0QJYLcVWVqOYXgTTHgEAPtIKPgRMAvLYStVHNkBXFtCQVfSMOdZRAoFFZuNVPyPRTuVRQpUZExNP CpPDDqBDQdIDTpWODnBMJyLKYrYUEmDAVoLGUfJFKxZNSsXKOhTWXjCRIeZV6HRAJpQRKvEEIdKEHoLV AgICAgICAgICAgICAgICAgICAgICAgICAgICAgICAg NBTrXLAdQZPvTINqXULaVKAiNRHwWTJcPZMzGNSqYFFeAAPfWDBgGLXhYSAmRMRnNQCjMDFqKQ5QJOGg ICAgICAgICAgICAgICAgICAgICAgICAgICAgICAgICAgICAgICAgICAgICAgICAgICAgICAgICAgICAg ICAgICAgICAgICAgICAgICAgICAgICAgICAgICAgIC VbJQNtDN0ICBSiHEPiNSBwJWUfSVEnHTHnFTKnBTLvUTRhPVLpFLFmJAWdJYYzAQCaTMTfLDSyCEXtCF KvMQYtLXQeQQSfTJMpDDWrYXTtVIYoXUAwYKZmGHUmJQFzAJJqSZCjTRGpIMUcRB0CBSKgCIAgNNWtQB AgICAgICAgICAgICAgICAgICAgICAgICAgICAgICAg UPLsEGMrONOxWDHwDQRoLYYtZEHvHETrHTUfMBOcDJHnDEBqZPKcEMOyDABiVUFdAEIxMOQyTELvJA2Y ICAgICAgICAgICAgICAgICAgICAgICAgICAgICAgICAgICAgICAgICAgICAgICAgICAgICAgICAgICAg ICAgICAgICAgICAgICAgICAgICAgICAgICAgICAgIC PqJBHzQGGxOH6AIS78cXFym0T2HUMrZN9cptq/Kd8LHDynneMbpQNaXD1HBlVvKC3cqp2GUwMzAJ8cjm 9WVKtAFgPhN7V0nOGvJKNaGJFGOlBeS65sCVeoXx86MZvhDBInSrDvCWi4Lk6ZZwNyN6oqZSNiWaL7PL EgWkNeMOluDQ5Pz0LdzPAzFMf+Jl6RQT8kq0VjZDql GVLpLE8fas5LYAhKMqRoD2DxoeK4GQDnCWFoVr1EDKOsLWYkkUSxTPWwZAXQYrTeI8LykU64XALNLa0+ QIfpzeLbLjqHEsWuKKEmk5VuHGs3OG1FQHVaBIc6lFDaSRKhH4Ggx5TrDz58AACbBrseZjKhjrDgTCXW XRZlsKGwfyjrKQDjHJQuKs3kMc7mPRHdPIZbDbM3CA WLSR2IZNOzUAGarAThPFZqKHBSQU8ZQYzaOAL7DIYmtaHdsMWlYPcnYS7CUTWihgYeYQpzXRZJYZr+Pg 0JDG3om8XkUHdxNXCgYE0pqb3NREwOHtRdD9Y7vZBtU4V8HFtiGe4TKJAvDJYrCMcdFDIYELceRR7DGB 2xrqU2ZM3EuFBzCJBiPEMdnBLuUBv5T41toJRyHFcv JO9PSSJ+Rambo+Kj2BEGOoMCCjYBZfZbKcQTNFCnGaZ8UkX1KUs3SmG2XzQB74vZpwkmYtMZpiJN5CEL8s GVBfWBZTRO5GrZAuhM8ijcLrNOScRBKDFwPrA83fvHHcYEVyBXK4KFLjBk0ESILrE9FbvjEzmUftozPg XOOzTOMUSQ6YPDtoeyMqaGYekCavXK16oYkuEH5BGl 9XAwDbPY2unw3QbSZgOs9OGFOgLb5WVSXmHTNaKXRkKUL5NJEuYrXsRKboTZAyLYWbVQU0WWOnZRQkVL 9PViSvUXDrXQE6NrhdDPGdJTCfre2TPSFlQOOiEAS2ZfKnCUBeXXOeYLpnLXJdNTMbPDB8EYXcCKMxDS 8LEcDbFRJvUNR6ZNPuFXXdIWPric4QLWPsDJFdDRd2 XPCxCKQyQPHrALysGXMsNIPxUNX9GTUuZHXpYU9EBzXcMLDwAIPrVXKdBAIxYAUdtq7LCPKeHDTjDkXp WPMpDSVhVUXeMKkxTTNaJUL6UszyEWQmVXZxSW9ZQeYfJIQhKCD6SAJuUEJrZSEfcc7OQJNhNJBhUVX4 PYZzAXRbRUBlQBogONXbMAT2ILL4HMOpMQBfJJ9QAc PpHUOcAGCyBNBkLSLmLTNplk8KJWNqBVEcZmJ9GTVxDGAzLXXsVJyvIQNhLVR7WRBoVZVeZQTpGE8RGj RdMUCoAXG2HGsqNNBvSHWrxt7DSIWgOQSjVnG9VbUiITCcMBKnQPftYCLkXVP7Mlj8KCLbIUFnDD9VWr JhEQSbACp7ICOwXTGwBPEzlb5WLDIqQMXqRMCfGsLc NWFiAJUrOCv5jyCpmVMeYDs3AK1AA1DcuvUvOsYREg4Va321CQFyGWXuEj8MP8lxEg6gWVUuNYMQAd6S GDv1AGasLeV5NDbgTNViMcK4ZcclCxe4Qow0ARSaBFLgOXJ+YWqtTRJeDxvkXJFeZpRjSDUeLEM5LUei KMR2XJM2T8R1Iq4xTKTEOw4+LUwikIBmwNwiCBTIKrS5BpOhWPntKMUTUf6U ID Date Data Source [id number] 04/17/2019 02:29:53 PM [facility] Name Value Range Interpretation Code Description Data Jing rce(s) Supporting Document(s) Progress Note [facility] MZIDFv2lWmFTYkQa80/LNGrbSUWfp8QyZHylQIk2JTbsHGBsZ5FlJOR9lB8wAHJ8LJzOMwXqEwZaSnJz lbm [file] je3I5KprJh8Off2DFOwy219jk942o5KS+0t6W2h8bU ynrbyT0AaxpzYy9Jsqar8L2T7EVuQiRQcyJeDiWu/txjoN+dwMmLyvY11ewTzLzcKZtSnA4MexYzZrXK PsuiK4Zk0CbH55lwjrxXHQGpKFUbf2OdOyZ7C8VAHsje5stlg0/gDw3VoPcmumK90RT/JZDa+x6Bdu21 gJuHzsR7uWBx1N+5Bwq9+k6GtiOD8M/Vivian+boel1sx YCBazzg2zcRDSzGR0pp+5+dNz1wRDHifdlR5s2ja0XWOZf6A/otarwxAPNsgZ+25c79aqWJjhY0bK0Ks Fq2F9oO94/F3kilbR1V0ad15S7A1StFiLo94b6ZjNznJydgMV038nmU1XZN74W60uM+0lbPGZxN48XX9 iADRiRNOxDcAeea8l1f9KxQZHFL66DT7xouDcNCsL9 QMZ6qMzDX3W/pT3YxmnUxj7cm8/Qrouzy73eXaiA+kcgppFmncHFfwNkQBh5yvv1oItS6esmS2zsKY6q cnIpv4Bi73U7MV9HjuVuh1SVPhLDP2smyug7mP3eJtYJx/AkGS3I9Q00H6dcIKC8qlarL2Pkk4ZZV6QA CN7h8O6NHCuuZ53qo+4pe5LxiqlUuhhB/JFWDf3JMG GUtG9TGSKj+jn/51Am09VeC5YroWMRGj94JbAes6qOWgj5Xst3PA/Ducrq10iFCV9Lm7M+IHhw8MoXrE Renée/JdbWh2TNO7x3wYmuaa3Ka4L/VfcD4jJf+j7CZkM/jATfy1UiPz20Dry4mdxq4wfZlqql8q/RNqLs [file] XHdhBkriLDC8UD3uZEVJXh2+RTcmfBCotOvqUWYELxP6XNGzSDoeJPPLMk0P ID Date Data Source [id number] 04/18/2019 05:58:29 PM [facility] Name Value Range Interpretation Code Description Data Jing rce(s) Supporting Document(s) Protein [Mass/volume] in Serum or Plasma 6.8 g/dL 6.4-8.3 [facility] Albumin [Mass/volume] in Serum or Plasma by Electrophoresis 5.21 g/dL 3.80-5.78 [facility] Alpha 1 globulin [Mass/volume] in Serum or Plasma by Electro phoresis 0.13 g/dL 0.08-0.23 [facility] Alpha 2 globulin [Mass/volume] in Serum or Plasma by Electro phoresis 0.64 g/dL 0.45-0.92 [facility] Beta globulin [Mass/volume] in Serum or Plasma by Electropho resis 0.74 g/dL 0.50-1.03 [facility] Gamma globulin [Mass/volume] in Serum or Plasma by Electroph oresis 0.88 g/dL 0.54-1.30 [facility] Protein.monoclonal [Mass/volume] in Serum or Plasma by Electrophoresi s 0 [facility] Protein Fractions [Interpretation] in Serum or Plasma by Electropho [facility] PATHOLOGIST:ARELY LERMA MD ID Date Data Source [id number] 04/17/2019 03:17:47 PM [facility] Name Value Range Interpretation Code Description Data Jing rce(s) Supporting Document(s) Flow cytometry study [facility] ID Date Data Source [id number] 04/17/2019 02:20:07 PM [facility] Name Value Range Interpretation Code Description Data Jing rce(s) Supporting Document(s) Leukocytes [#/volume] in Blood by Automated count 9.2 10*3/uL 4-10 [facility] Erythrocytes [#/volume] in Blood by Automated count 4.53 10*6/uL 4.6- 6.1 L [facility] Hemoglobin [Mass/volume] in Blood 14.7 g/dL 13.5-18 [facility] Hematocrit [Volume Fraction] of Blood by Automated count 43.1 % 4 1-53 [facility] Erythrocyte mean corpuscular volume [Entitic volume] by Auto mated count 95.1 fL 80-96 [facility] Erythrocyte mean corpuscular hemoglobin [Entitic mass] by Automated count 32.5 pg 27-33 [facility] Erythrocyte mean corpuscular hemoglobin concentration [Mass/volume] by Autom[facility] 34.2 g/dL [facility] width [Ratio] by Automated count 13.1 % 11.5-14.5 [facility] Platelets [#/volume] in Blood by Automated count 177 10*3/uL 150-400 [facility] Differential cell count method - Blood [facility] Neutrophils/100 leukocytes in Blood by Automated count 49 % [facility] Lymphocytes/100 leukocytes in Blood by Automated count 34 % [facility] Monocytes/100 leukocytes in Blood by Automated count 9 % [facility] Eosinophils/100 leukocytes in Blood by Automated count 7 % [facility] Basophils/100 leukocytes in Blood by Automated count 1 % [facility] Neutrophils [#/volume] in Blood by Automated count 4.53 10*3/uL 1.8-7 .0 [facility] Lymphocytes [#/volume] in Blood by Automated count 3.13 10*3/uL 1.2-4 .0 [facility] Monocytes [#/volume] in Blood by Automated count 0.85 10*3/uL 0-0.8 H [facility] Eosinophils [#/volume] in Blood by Automated count 0.60 10*3/uL 0-0.5 [facility] Basophils [#/volume] in Blood by Automated count 0.06 10*3/uL 0-0.2 [facility] Nucleated erythrocytes/100 leukocytes [Ratio] in Blood by Automated count 0 /100{WBCs} 0-0 [facility] ID Date Data Source [id number] 04/17/2019 02:48:19 PM [facility] Name Value Range Interpretation Code Description Data Jing rce(s) Supporting Document(s) Lactate dehydrogenase [Enzymatic activit y/volume] in Serum or Plasma by Lactate to pyruvate reaction 195 U/L 122-225 [facility] ID Date Data Source [id number] 04/18/2019 03:52:00 PM [facility] Hematopathology Report See Addendum Eric Hernandez: YUDELKA RAMIREZ: [id number] Number: [id number] Date: 04/17/2019 00:00Received Date: 04/17/2019 14:28Physician(s): CORNELIO FLETCHER SHARLENE ASpecimen(s) ReceivedA: Blood, Flow Cytometry; Received 2 green top PBClinical HistoryT-cell lymphoma.TEST REQUESTED/PERFORMED: Flow cytometry analysis DiagnosisFlow cytometry of blood: No definite evidence of lymphoma, but T-cellpopulation with decreased CD4/CD8 ratio with similar phenotype detectedpreviously. T-cell PCR is pending.Tere Hall MD;Resident PathologistElectronically Signed By MARY STINSON M.D. Attending Pathologist 04/18/201915:52:09The attending pathologist named above attests that he/she has personallyreviewed the relevant preparation(s) for the specimen(s) and rendered thefinal diagnosis. Addendum 04/23/2019 Molecular report [id number] shows four faint to moderately bright clonalbands in an oligoclonal background. These bands are different in sizefrom those present in 2018 and 2019. 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 The current oligoclonal pattern suggests a reactiveprocess. Addendum Electronically Signed By: Lisseth Villa M.D. 04/23/2019 11:39 ProceduresFlow Cytometry Date Ordered:04/17/2019 Status: Signed Out04/18/2019 InterpretationPERIPHERAL BLOOD: CBC performed at [facility] #[id number](04/17/19)WBC 9.2 K/uLRBC *4.53 M/uLHgb 14.7 g/dLHct 43.1 %MCV 95.1 fLMCH 32.5 pgMCHC 34.2 g/dLRDW 13.1 %MPV 8.2 fLPlatelets 177 K/ulDifferential Count (automated):49 % Neutrophils 7 % Eosinophils 1 % [id number] % Lymphocytes 9 % Monocytes-------100 % A peripheral blood film is reviewed. Rare small lymphocytes with slightlyirregular nuclear contours are seen. Lymphoid Panel: Ashley Ybarra [id number] following markers were assayed: CD45 (gate), CD2, CD3, CD4, CD5, CD7,CD8, CD10, CD19, CD20, CD38, CD56, CD57, [place], and Lambda.# events: [id number]: 96%Flow Cytometry Differential (CD45/SSC)Lymphocyte [place]: 34%CD45 dim [place]: 0%Monocyte [place]: 5%Granulocyte [place]: 59%Nucleated/Erythroid [place]: 1%The lymphocyte gate showsB- cells (CD19): 7%T-cells (CD3): 71%NK-cells (CD3-/CD56+): 16%[place]/Lambda Ratio: 2.1CD4/CD8 Ratio: 0.5Results: (expressed as % of lymphocyte gate)T-cell Markers: CD2 = 79, CD3 = 71, CD3/CD4 = 24, CD3/CD8 = 44, CD5 = 60,CD7 = 80, CD3/57 = 21B- cell markers: [place] = 5, Lambda = 2, CD19 = 7, CD20 = 17, CD19/10 = 0,CD19/CD5 = 0, CD38/CD20 = 10Light chain as % of B-Cells: CD19/[place] = 63, CD19/Lambda = 32CD19/CD5/[place] = 0, CD19/CD5/Lambda = 0CD19/CD10/[place] = 2, CD19/CD10/Lambda = 0NK cell Markers: CD56 = 18, CD57 = 31Other Markers: CD10 = 0, CD38 = 47 Results-CommentsLymphocytes consist predominantly of T cells with normal expression of panT-cell markers and slightly decreased CD4/CD8 ratio, normal proportions ofNK and cytotoxic T cells, and polyclonal B cells.Procedure Electronically Signed By:MARY STINSON M.D.04/18/2019 This report may include one or more immunohistochemical stain/fluorochromeconjugated monoclonal antibody results that use analyte specific reagents.All positive and negative controls have been reviewed by the attendingpathologist and are satisfactory. The tests were developed and theirperformance characteristics determined by [facility] Pathology department.They have not been cleared or approved by the US Food and DrugAdministration. The FDA has determined that such clearance or approval isnot necessary. Name Value Range Interpretation Code Description Data Jing rce(s) Supporting Document(s) ID Date Data Source [id number] 04/22/2019 03:41:00 PM [facility] Molecular Diagnostics ReportName: ASHLEYYUDELKA SILVA: [id number] Number: [id number] Date: 04/17/2019 00:00Received Date: 04/18/2019 15:32Physician(s): CORNELIO FLETCHER BERNARD JCopy T o:CHRISTINA STINSON BRENT ASpecimen(s) ReceivedA: Peripheral Blood - T-cell, [id number] OF STUDY: T-cell Receptor Gamma Chain Gene - PCR AssaySPECIMEN TYPE: Peripheral Blood (#[id number])RESULTS: Positive Family I & III / J Major and Minor Positive - band of about 240, 200 and 185 bp Family II & IV / J Major and Minor oligoclonalpattern with strong band at ~190 bp INTERPRETATION: 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 Pleasenote that this assay is a good marker for clonality but is an unreliablemarker of T-cell lineage. The specificity for T-cell lineage is about 77%. COMMENTS: Extracted DNA was amplified with primers specific for detectinga rearranged T-cell receptor Gamma Chain gene (van Randallen et al. Iwpcgopn68:2257- 2317, 2003). A positive result is expected when the clonalpopulation constitutes 10% or more of the sample. Diagnostic sensitivityfor detecting T-cell clonality is about 90%. Demonstration of a clonalpopulation alone is not diagnostic of malignancy. The results of generearrangement studies should be reviewed in conjunction with morphology,immunophenotyping, and clinical findings.This test was developed and its performance determined by the Departmentof Pathology. It has not been cleared or approved by the U.S. Food andDrug Administration (FDA), the FDA has determined that such approval isnot necessary. The test has been validated and authorized for clinical useby the [facility] Dept. of Health ([facility]). [email or web address]/[email or web address] Electronically Signed By Etienne Mcconnell, Ph.D., DABMGG, [facility] MolecularGeneticist 04/22/2019 15:41:46 Name Value Range Interpretation Code Description Data Jing rce(s) Supporting Document(s) Procedure Social History Code Duration Value Status Description Data Source(s ) Smoking 04/29/2020 12:00:00 AM EST Never Smoker completed Never S shaina eCW1 ([facility]) Smoking 04/20/2020 12:00:00 AM EST Unknown if ever smoked comp leted Unknown if ever smoked [facility] ([facility]) Smoking 03/23/2020 12:00:00 AM EST Unknown if ever smoked comp leted Unknown if ever smoked [facility] ([facility]) Smoking 03/03/2020 12:00:00 AM EST Never Smoker completed Never S moker eCW1 ([facility]) Smoking 03/03/2020 12:00:00 AM EST Never Smoker completed Never S moker eCW1 ([facility]) Smoking 03/03/2020 12:00:00 AM EST Never Smoker completed Never S moker eCW1 ([facility]) Smoking 03/03/2020 12:00:00 AM EST Never Smoker completed Never S moker eCW1 ([facility]) Smoking 03/03/2020 12:00:00 AM EST Never Smoker completed Never S moker eCW1 ([facility]) Smoking 03/03/2020 12:00:00 AM EST Never Smoker completed Never S moker eCW1 ([facility]) Smoking 03/03/2020 12:00:00 AM EST Never Smoker completed Never S moker eCW1 ([facility]) Smoking 03/03/2020 12:00:00 AM EST Never Smoker completed Never S moker eCW1 ([facility]) Smoking 02/24/2020 12:00:00 AM EST Unknown if ever smoked comp leted Unknown if ever smoked [facility] Smoking 01/27/2020 12:00:00 AM EST Unknown if ever smoked comp leted Unknown if ever smoked [facility] ([facility]) Smoking 12/30/2019 12:00:00 AM EDT Unknown if ever smoked comp leted Unknown if ever smoked [facility] ([facility]) Smoking 12/02/2019 12:00:00 AM EDT Unknown if ever smoked comp leted Unknown if ever smoked [facility] ([facility]) Smoking 11/27/2019 12:00:00 AM EDT Unknown if ever smoked comp leted Unknown if ever smoked [facility] ([facility]) Alcohol intake 10/20/2019 12:00:00 AM EDT Current non-d leah of alcohol (finding) completed Current non-drinker of alcohol (finding) [facility] Tobacco use and exposure 10/20/2019 12:00:00 AM EDT Never used co mpleted Never used [facility] Smoking 10/20/2019 12:00:00 AM EDT Never smoker completed Never s [facility] Smoking 09/09/2019 12:00:00 AM EDT Never Smoker completed Never S moker eCW1 ([facility]) Smoking 09/09/2019 12:00:00 AM EDT Never Smoker completed Never S moker eCW1 ([facility]) Smoking 09/09/2019 12:00:00 AM EDT Never Smoker completed Never S moker eCW1 ([facility]) Smoking 09/09/2019 12:00:00 AM EDT Never Smoker completed Never S moker eCW1 ([facility]) Smoking 09/09/2019 12:00:00 AM EDT Never Smoker completed Never S moker eCW1 ([facility]) Smoking 08/19/2019 12:00:00 AM EDT Patient has never smoked co mpleted Patient has never smoked [facility] ([facility]) Smoking 08/04/2019 12:00:00 AM EDT Unknown if ever smoked comp leted Unknown if ever smoked [facility] ([facility]) Smoking 07/07/2019 12:00:00 AM EDT Unknown if ever smoked comp leted Unknown if ever smoked [facility] ([facility]) Smoking 06/27/2019 12:00:00 AM EDT Unknown if ever smoked comp leted Unknown if ever smoked [facility] ([facility]) Smoking 06/09/2019 12:00:00 AM EDT Unknown if ever smoked comp leted Unknown if ever smoked [facility] ([facility]) Alcohol intake 04/17/2019 12:00:00 AM EST Current non-d leah of alcohol (finding) completed Current non-drinker of alcohol (finding) [facility] Smoking 04/17/2019 12:00:00 AM EST Never smoker completed Never s [facility] Smoking 04/14/2019 12:00:00 AM EST Unknown if ever smoked comp leted Unknown if ever smoked [facility] ([facility]) Smoking 03/21/2019 12:00:00 AM EST Unknown if ever smoked comp leted Unknown if ever smoked [facility] ([facility]) Vital Signs ID Date Data Source UNK Name Value Range Interpretation Code Description Data Source(s) Diastolic blood pressure 0 mm[Hg] Normal (applies to non-numeric results) 0 mm[Hg] [facility] ([facility]) Systolic blood pressure 0 mm[Hg] Normal (applies t o non-numeric results) 0 mm[Hg] [facility] ([facility]) Body mass index (BMI) [Ratio] 0.00 kg/m2 No rmal (applies to non-numeric results) 0.00 [facility] Body weight Measured 0.00 lbs Normal (applies to n on-numeric results) 0.00 lbs [facility] ([facility]) Body height 0.00 in Normal (applies to non-numeric resu lts) 0.00 in [facility] ([facility]) Diastolic blood pressure 0 mm[Hg] Normal (applies to non-numeric results) 0 mm[Hg] [facility] ([facility]) Systolic blood pressure 0 mm[Hg] Normal (applies t o non-numeric results) 0 mm[Hg] [facility] ([facility]) Body mass index (BMI) [Ratio] 0.00 kg/m2 No rmal (applies to non-numeric results) 0.00 kg/m2 [facility] ([facility]) Body weight Measured 0.00 lbs Normal (applies to n on-numeric results) 0.00 lbs [facility] ([facility]) Body height 0.00 in Normal (applies to non-numeric resu lts) 0.00 in [facility] ([facility]) Diastolic blood pressure 82 mm[Hg] 82 mm[Hg] eCW1 ([facility]) Systolic blood pressure 130 mm[Hg] 130 mm[Hg] e CW1 ([facility]) Body temperature 96.9 [degF] 96.9 [degF] eCW1 ( [facility]) Respiratory rate 18 /min 18 /min eCW1 ([facility]) Heart rate 89 /min 89 /min eCW1 ([facility]) Body mass index (BMI) [Ratio] 41.96 kg/m2 41.96 kg/m2 eCW1 ([facility]) Body height 68 [in_i] 68 [in_i] eCW1 ([facility]) Body weight 276 [lb_av] 276 [lb_av] eCW1 ([facility]) Diastolic blood pressure 82 mm[Hg] 82 mm[Hg] eCW1 ([facility]) Systolic blood pressure 130 mm[Hg] 130 mm[Hg] e CW1 ([facility]) Body temperature 96.9 [degF] 96.9 [degF] eCW1 ( [facility]) Respiratory rate 18 /min 18 /min eCW1 ([facility]) Heart rate 89 /min 89 /min eCW1 ([facility]) Body mass index (BMI) [Ratio] 41.96 kg/m2 41.96 kg/m2 eCW1 ([facility]) Body height 68 [in_i] 68 [in_i] eCW1 ([facility]) Body weight 276 [lb_av] 276 [lb_av] eCW1 ([facility]) Diastolic blood pressure 0 mm[Hg] Normal (applies to non-numeric results) 0 mm[Hg] [facility] ([facility]) Systolic blood pressure 0 mm[Hg] Normal (applies t o non-numeric results) 0 mm[Hg] [facility] Body mass index (BMI) [Ratio] 0.00 kg/m2 No rmal (applies to non-numeric results) 0.00 kg/m2 [facility] ([facility]) Body weight Measured 0.00 lbs Normal (applies to n on-numeric results) 0.00 [facility] Body height 0.00 in Normal (applies to non-numeric resu lts) 0.00 in [facility] ([facility]) Diastolic blood pressure 0 mm[Hg] Normal (applies to non-numeric results) 0 mm[Hg] [facility] ([facility]) Systolic blood pressure 0 mm[Hg] Normal (applies t o non-numeric results) 0 mm[Hg] [facility] ([facility]) Body mass index (BMI) [Ratio] 0.00 kg/m2 No rmal (applies to non-numeric results) 0.00 kg/m2 [facility] ([facility]) Body weight Measured 0.00 lbs Normal (applies to n on-numeric results) 0.00 lbs [facility] ([facility]) Body height 0.00 in Normal (applies to non-numeric resu lts) 0.00 in [facility] ([facility]) Diastolic blood pressure 0 mm[Hg] Normal (applies to non-numeric results) 0 mm[Hg] [facility] ([facility]) Systolic blood pressure 0 mm[Hg] Normal (applies t o non-numeric results) 0 mm[Hg] [facility] ([facility]) Body mass index (BMI) [Ratio] 0.00 kg/m2 No rmal (applies to non-numeric results) 0.00 kg/m2 [facility] ([facility]) Body weight Measured 0.00 lbs Normal (applies to n on-numeric results) 0.00 lbs [facility] ([facility]) Body height 0.00 in Normal (applies to non-numeric resu lts) 0.00 in [facility] ([facility]) Diastolic blood pressure 0 mm[Hg] Normal (applies to non-numeric results) 0 mm[Hg] [facility] ([facility]) Systolic blood pressure 0 mm[Hg] Normal (applies t o non-numeric results) 0 mm[Hg] [facility] ([facility]) Body mass index (BMI) [Ratio] 0.00 kg/m2 No rmal (applies to non-numeric results) 0.00 kg/m2 [facility] ([facility]) Body weight Measured 0.00 lbs Normal (applies to n on-numeric results) 0.00 lbs [facility] ([facility]) Body height 0.00 in Normal (applies to non-numeric resu lts) 0.00 in [facility] ([facility]) Respiratory rate 20 /min 20 /min [facility] ( [facility] ) Heart rate 76 /min 76 /min [facility] ([facility], ) Diastolic blood pressure 80 mm[Hg] 80 mm[Hg] [facility] ([facility], ) Systolic blood pressure 124 mm[Hg] 124 mm[Hg] M EDENT ([facility], ) Diastolic blood pressure 80 mm[Hg] 80 mm[Hg] eCW1 ([facility]) Systolic blood pressure 128 mm[Hg] 128 mm[Hg] e CW1 ([facility]) Body temperature 97.3 [degF] 97.3 [degF] eCW1 ( [facility]) Respiratory rate 20 /min 20 /min eCW1 ([facility]) Heart rate 78 /min 78 /min eCW1 ([facility]) Body mass index (BMI) [Ratio] 41.44 kg/m2 41.44 kg/m2 eCW1 ([facility]) Body height 68 [in_i] 68 [in_i] eCW1 ([facility]) Body weight 272.6 [lb_av] 272.6 [lb_av] eCW1 ([facility]) Diastolic blood pressure--sitting 78 mm[Hg] 78 mm[Hg] [facility] ([facility]) large cuff, Ra Systolic blood pressure--sitting 130 mm[Hg] 130 mm[Hg] [facility] ([facility]) large cuff, Ra Heart rate 66 /min 66 /min [facility] ([facility] Body mass index (BMI) [Ratio] 40.0 kg/m2 40.0 k g/m2 [facility] ([facility]) Body height 69 [in_i] 69 [in_i] [facility] ([facility]) 5'9" Body weight 271.00 [lb_av] 271.00 [lb_av] MEDEN T ([facility]) Diastolic blood pressure 0 mm[Hg] Normal (applies to non-numeric results) 0 mm[Hg] [facility] ([facility]) Systolic blood pressure 0 mm[Hg] Normal (applies t o non-numeric results) 0 mm[Hg] [facility] ([facility]) Body mass index (BMI) [Ratio] 0.00 kg/m2 No rmal (applies to non-numeric results) 0.00 kg/m2 [facility] ([facility]) Body weight Measured 0.00 lbs Normal (applies to n on-numeric results) 0.00 lbs [facility] ([facility]) Body height 0.00 in Normal (applies to non-numeric resu lts) 0.00 in [facility] ([facility]) Diastolic blood pressure 72 mm[Hg] 72 mm[Hg] eCW1 ([facility]) Systolic blood pressure 130 mm[Hg] 130 mm[Hg] e CW1 ([facility]) Body temperature 98.0 [degF] 98.0 [degF] eCW1 ( [facility]) Respiratory rate 20 /min 20 /min eCW1 ([facility]) Heart rate 83 /min 83 /min eCW1 ([facility]) Body mass index (BMI) [Ratio] 41.14 kg/m2 41.14 kg/m2 W1 ([facility]) Body height 68 [in_us] 68 [in_us] eCW1 ([facility]) Body weight Measured 270.6 [lb_av] 270.6 [lb_av ] eCW1 ([facility]) Diastolic blood pressure 0 mm[Hg] Normal (applies to non-numeric results) 0 mm[Hg] [facility] ([facility]) Systolic blood pressure 0 mm[Hg] Normal (applies t o non-numeric results) 0 mm[Hg] [facility] Body mass index (BMI) [Ratio] 0.00 kg/m2 No rmal (applies to non-numeric results) 0.00 kg/m2 [facility] ([facility]) Body weight Measured 0.00 lbs Normal (applies to n on-numeric results) 0.00 lbs [facility] ([facility]) Body height 0.00 in Normal (applies to non-numeric resu lts) 0.00 in [facility] ([facility]) Diastolic blood pressure 0 mm[Hg] Normal (applies to non-numeric results) 0 mm[Hg] [facility] ([facility]) Systolic blood pressure 0 mm[Hg] Normal (applies t o non-numeric results) 0 mm[Hg] [facility] ([facility]) Body mass index (BMI) [Ratio] 0.00 kg/m2 No rmal (applies to non-numeric results) 0.00 kg/m2 [facility] Body weight Measured 0.00 lbs Normal (applies to n on-numeric results) 0.00 lbs [facility] ([facility]) Body height 0.00 in Normal (applies to non-numeric resu lts) 0.00 in [facility] ([facility]) Diastolic blood pressure 0 mm[Hg] Normal (applies to non-numeric results) 0 mm[Hg] [facility] ([facility]) Systolic blood pressure 0 mm[Hg] Normal (applies t o non-numeric results) 0 mm[Hg] [facility] ([facility]) Body mass index (BMI) [Ratio] 0.00 kg/m2 No rmal (applies to non-numeric results) 0.00 kg/m2 [facility] ([facility]) Body weight Measured 0.00 lbs Normal (applies to n on-numeric results) 0.00 lbs [facility] Body height 0.00 in Normal (applies to non-numeric resu lts) 0.00 in [facility] Diastolic blood pressure 84 mm[Hg] 84 mm[Hg] eCW1 ([facility]) Systolic blood pressure 128 mm[Hg] 128 mm[Hg] e CW1 ([facility]) Body temperature 97.1 [degF] 97.1 [degF] eCW1 ( [facility]) Respiratory rate 20 /min 20 /min eCW1 ([facility]) Heart rate 68 /min 68 /min eCW1 ([facility]) Body mass index (BMI) [Ratio] 40.53 kg/m2 40.53 kg/m2 W1 ([facility]) Body height 68 [in_us] 68 [in_us] eCW1 ([facility]) Body weight Measured 266.6 [lb_av] 266.6 [lb_av ] eCW1 ([facility]) Respiratory rate 16 /min 16 /min [facility] ( [facility] ) Heart rate 76 /min 76 /min [facility] ([facility] ) Diastolic blood pressure 80 mm[Hg] 80 mm[Hg] [facility] ([facility] ) Systolic blood pressure 118 mm[Hg] 118 mm[Hg] M [facility] ([facility], ) Diastolic blood pressure 82 mm[Hg] 82 mm[Hg] eCW1 ([facility]) Systolic blood pressure 130 mm[Hg] 130 mm[Hg] e CW1 ([facility]) Body temperature 98.0 [degF] 98.0 [degF] eCW1 ( [facility]) Respiratory rate 18 /min 18 /min eCW1 ([facility]) Heart rate 89 /min 89 /min eCW1 ([facility]) Body mass index (BMI) [Ratio] 41.05 kg/m2 41.05 kg/m2 eCW1 ([facility]) Body height 68 [in_us] 68 [in_us] eCW1 ([facility]) Body weight Measured 270.0 [lb_av] 270.0 [lb_av ] eCW1 ([facility]) ID Date Data Source [id number] 04/29/2020 04:32:49 PM [facility] Name Value Range Interpretation Code Description Data Source(s) WEIGHT RECORDED 273 lb 273 lb [facility] ID Date Data Source [id number] [facility] Value Range Interpretation Code Description Data Source(s) WEIGHT RECORDED 269 lb 269 lb [facility] ID Date Data Source [id number] 04/23/2019 11:39:23 AM EST [facility] Name Value Range Interpretation Code Description Data Source(s) WEIGHT RECORDED 271.6 lb 271.6 lb [facility] Patient Treatment Plan of Care Planned Activity Planned Date Details Description Data Source (s) sildenafil 50 MG Oral Tablet 04/29/2020 12:00:00 AM EST eCW1 ([facility]) Fluticasone Propionate 50 MCG/ACT 03/03/2020 12:00:00 AM EST eCW1 ([facility]) Fluticasone Propionate 50 MCG/ACT 03/03/2020 12:00:00 AM EST eCW1 ([facility]) Fluticasone Propionate 50 MCG/ACT 03/03/2020 12:00:00 AM EST eCW1 ([facility]) Fluticasone Propionate 50 MCG/ACT 03/03/2020 12:00:00 AM EST eCW1 ([facility]) Fluticasone Propionate 50 MCG/ACT 03/03/2020 12:00:00 AM EST eCW1 ([facility]) Fluticasone Propionate 50 MCG/ACT 03/03/2020 12:00:00 AM EST eCW1 ([facility]) Fluticasone Propionate 50 MCG/ACT 03/03/2020 12:00:00 AM EST eCW1 ([facility]) Fluticasone Propionate 50 MCG/ACT 03/03/2020 12:00:00 AM EST eCW1 ([facility]) Docusate Sodium 100 MG Oral Capsule [Colace] 03/31/2019 12:00:00 AM EST eCW1 ([facility]) Hydroxyzine Hydrochloride 50 MG Oral Tablet 03/31/2019 12:00:00 AM EST [id number] ([facility])
[2020-04-30] MEDS ORDERED: LORazepam 2 MG TAB PO STA (01:29)
[2020-04-30 01:39] LABS: HEMATOCRIT 43.8 % (42.0-52.0); HEMOGLOBIN 14.7 g/dl (13.5-17.5); MEAN CORPUSCULAR HEMOGLOBIN 31.5 pg (27.0-33.0); MEAN CORPUSCULAR HGB CONC 33.6 g/dl (32.0-36.5); PLATELET COUNT, AUTOMATED 162 10^3/uL (150-450); RED BLOOD COUNT 4.66 10^6/uL (4.30-6.10); WHITE BLOOD COUNT 9.2 10^3/uL (4.0-10.0)
[2020-04-30 02:09] LABS: AMPHETAMINES LEVEL URINE NEGATIVE (NEGATIVE); BARBITURATES URINE NEGATIVE (NEGATIVE); BENZODIAZEPINES URINE NEGATIVE (NEGATIVE); CANNABINOIDS URINE NEGATIVE (NEGATIVE); COCAINE METABOLITE URINE NEGATIVE (NEGATIVE); METHADONE URINE NEGATIVE (NEGATIVE); OPIATES URINE NEGATIVE (NEGATIVE); PHENCYCLIDINE URINE NEGATIVE (NEGATIVE)
[2020-04-30 02:14] LABS: ACETAMINOPHEN LEVEL < 2.0 UG/ML (10.0-30.0); ALBUMIN 3.9 GM/DL (3.2-5.2); ALT/SGPT 74 U/L (12-78); BILIRUBIN,DIRECT 0.1 MG/DL (0.0-0.2); BILIRUBIN,TOTAL 0.3 MG/DL (0.2-1.0); BLOOD UREA NITROGEN 15 MG/DL (7-18); CALCIUM LEVEL 9.1 MG/DL (8.5-10.1); CARBON DIOXIDE LEVEL 29 MEQ/L (21-32); CHLORIDE LEVEL 105 MEQ/L (98-107); CREATININE FOR GFR 1.14 MG/DL (0.70-1.30); ETHYL ALCOHOL (ETHANOL) < 0.003 % (0.000-0.010); GLOMERULAR FILTRATION RATE > 60.0 (>60); GLUCOSE, FASTING 93 MG/DL (70-100); POTASSIUM SERUM 4.1 MEQ/L (3.5-5.1); SALICYLATE LEVEL < 1.7 MG/DL (5.0-30.0); SODIUM LEVEL 138 MEQ/L (136-145)
[2020-04-30 02:58] LABS: RSV AMPLIFICATION NEGATIVE (NEGATIVE)
[2020-04-30] MEDS ORDERED: MOM 30ML SUSPENSION UDC PO PRN (03:15)
[2020-04-30] MEDS ORDERED: traZODone 50 MG TAB PO PRN (03:15)
[2020-04-30] MEDS ORDERED: MAALOX 30 ML SUSP *UDC PO PRN (03:15)
[2020-04-30] MEDS ORDERED: OLANZapine ORAL DISINTEGRATING TAB 5MG PO PRN (03:15)
--- OUTSIDE RECORDS SUMMARY | 2020-04-30 03:45 | CCD ---
Author Author [facility] Organization [facility] Address Unknown Phone Unavailable Care Team Providers Care Fancy Wire Drawer Name Role Phone Mariann NOEL MD Unavailable [...] D NIEVES MD Unavailable Unavailable KACHARE, D NEIVES MD Unavailable Unavailable KACHARE, D NIEVES MD [...] Unavailable RICHELIUS WINSTON, ANTHONY Unavailable Unavailable Acosta, Austin Miriam Unavailable Unavailable Acosta, Austin Miriam Unavailable Unavailable Acosta, Austin Miriam Unavailable Unavailable Acosta, Austin Miriam Unavailable Unavailable Acosta, Austin Miriam Unavailable Unavailable Acosta, Austin Miriam Unavailable Unavailable Acosta, Austin Miriam Unavailable Unavailable Acsota, Austin Miriam Unavailable Unavailable Acosta, Austin Miriam Unavailable Unavailable Acosta, Austin Miriam Unavailable Unavailable Mariann Jose MD Unavailable [...] Unavailable Unavailable Mariann Jose MD Unavailable Unavailable Mraiann Jose MD Unavailable Unavailable Mariann Jose MD [...] R SISI DPM Unavailable Unavailable MAJAK, R SIIS DPM Unavailable Unavailable MAJAK, R SISI DPM [...] J Priya PA Unavailable Unavailable Trickey, J Pryia PA Unavailable Unavailable Trickey, J Priya PA [...] Unavailable RAYANCHA, ANDREA MD Unavailable Unavailable RAYANCHA, ANRDEA MD Unavailable Unavailable RAYANCHA, ANDREA MD Unavailable [...] ANDREA MD Unavailable Unavailable ALOK, H MARYAM ANALYTICAL TECH Unavailable Unavailable ALOK, H MARYAM ANALYTICAL TECH Unavailable Unavailable ALOK, H MARYAM ANALYTICAL TECH Unavailable Unavailable ALOK, H MARYAM ANALYTICAL TECH Unavailable Unavailable ALOK, H MARYAM ANALYTICAL TECH Unavailable Unavailable ALOK, H MARYAM ANALYTICAL TECH Unavailable Unavailable ALOK, H MARYAM ANALYTICAL TECH Unavailable Unavailable ALOK, H MARYAM ANALYTICAL TECH Unavailable Unavailable SherineChung cash MD Unavailable Unavaila violeta CaseyChung MD Unavailable Unavaila violeta CaseyChung MD Unavailable Unavaila violeta CaseyChung MD Unavailable Unavaila violeta CaseyChung MD Unavailable Unavaila violeta CaseyChung MD Unavailable Unavaila violeta CaseyChung MD Unavailable Unavaila violeta SherineChung cash MD Unavailable Unavaila violeta CaseyChung MD Unavailable Unavaila ble Paulino Fletcher Unavailable [...] Poiesz, J Cornelio Unavailable Unavailable Poiesz, J Corenlio Unavailable Unavailable Poiesz, J Cornelio Unavailable Unavailable [...] is protected by Article 27-F of the [facility] Public Health law. If you continue you may have access to information: Regarding HIV / AIDS; Provided by facilities licensed or operated by the [facility] Office of Mental Health; or Provided by the [facility] Office for People With Developmental Disabilities. If such information is present, then the following [facility] mandated warning applies: This information has been [...] law may result in a fine or alf sentence or both. A general authorization for the release of medical or other information is NOT sufficient authorization for further disc losure. Allergies and Adverse Reactions Type Description Substance Reaction Status Data Source(s ) DRUG INGREDI THIORIDAZINE THIORIDAZINE [facility] DRUG INGREDI HALOPERIDOL HALOPERIDOL [facility] SYSTEMIC NO ALLERGIES ON FILE NO ALLERGIES ON FILE [facility] DRUG INGREDI THIORIDAZINE Thioridazine [facility] DRUG INGREDI HALOPERIDOL Haloperidol [facility] DRUG INGREDI FLUPHENAZINE Fluphenazine [facility] DRUG INGREDI CHLORPROMAZINE Chlorpromazine [facility] Drug allergy Thioridazine HCl Thioridazine Unknown Active eCW1 ([facility]) ACEI ACEI ACEI cough Active eCW1 (Critical access hospital) ACEI ACEI ACEI cough Active eCW1 (Critical access hospital) ACEI ACEI ACEI cough Active eCW1 (Critical access hospital) Allergy to substance Allergy to substance Allergy to substance JAYANT ([facility]) Allergy to substance Allergy to substance Allergy to substance JAYANT ([facility]) Allergy to substance Allergy to substance Allergy to substance JAYANT ([facility]) Family History Family Member Name Family Member Gender Family Member Status Date o f Status Description Data Source(s) Unknown Unknown Problem [facility] ([facility] Encounters Encounter Providers Location Date Indications Data Source(s ) Outpatient Attender: Cornelio Fletcher 10/28/2020 12:00:00 AM [facility] Outpatient Attender: Cornelio Fletcher 021 12:00:00 AM EST - 04/29/2020 04:31:36 PM EST Unspecified b-cell lymphoma, extranodal and solid orga n [facility] Unspecified b-cell lymphoma, extranodal and solid organ sites [place] [address] [facility] [address] 04/26/2020 12:00:00 AM EST eCW1 (Critical access hospital) Outpatient Attender: Cornelio Fletcher 04/22/2020 12:00:00 AM [facility] Outpatient Attender: MARYAM ROMERO NP [facility] 04/20/2020 11:30:00 AM EST - 04/20/2020 11:30:00 AM EST [facility] ([facility] Attender: MARYAM ROMERO NP 04/20/2020 12:00:00 AM EST [facility] ([facility]) Unknown [address] [facility] [address] 04/06/2020 12:00:00 AM EST eCW1 (Critical access hospital) Unknown [address] [facility] [facility] [address] 03/30/2020 12:00:00 AM EST eCW1 (Critical access hospital) Miriam Acosta, [employer] CLERK-C: [address] [place] [phone], Ph. Attender: Miriam CEE - [facility] Medical 03/30/2020 12:00:00 AM EST JAYANT ([facility]) Unknown [address] [facility] [address] 03/24/2020 12:00:00 AM EST [facility]CW1 [facility]) Outpatient Attender: MARYAM ROMERO ANALYTICAL TECH [facility] 03/23/2020 11:30:00 AM EST - 03/23/2020 11:30:00 AM EST [facility] ([facility]) Attender: MARYAM ROMERO ANALYTICAL TECH 03/23/2020 12:00:00 AM EST [facility] ([facility]) Outpatient Attender: SISI SÁNCHEZ [facility] Office 03/05 12:45:00 PM EST MEDENT ([facility] Unknown [address] [facility] [address] 03/17/2020 12:00:00 AM EST eCW1 ([facility]) Unknown [address] [facility] [address] 03/15/2020 12:00:00 AM EST eCW1 (Critical access hospital) Unknown [address] [facility] [address] 03/04/2020 12:00:00 AM EST eCW1 (Critical access hospital) Outpatient [address] [facility] [id number] 03/03/2020 12:00:00 AM EST eCW1 (Critical access hospital) Humberto Jose MD: [address] [place] [phone], Ph. Attender: Humberto Jsoe MD [facility] Medical 03/02/2020 12:00:00 AM EST JAYANT ([facility]) Humberto Jose MD: [address] [place] [phone], Ph. Attender: Humberto Jose MD [facility] Medical 03/02/2020 12:00:00 AM EST JAYANT ([facility]) Humberto Jose MD: [address] [place] [phone], Ph. Attender: Humberto Jose MD [place] - [facility] Medical 03/02/2020 12:00:00 AM EST JAYANT ([facility]) Outpatient Attender: MARYAM ROMERO NP [facility] Misael l 02/24/2020 11:30:00 AM EST - 02/24/2020 11:30:00 AM EST [facility] ([facility]) Attender: MARYAM ROMERO NP 02/24/2020 12:00:00 AM EST [facility] ([facility]) Unknown [address] [facility] [id number] 02/12/2020 12:00:00 AM EST eCW1 (Critical access hospital) Unknown [address] [facility] [id number] 02/02/2020 12:00:00 AM EST eCW1 (Critical access hospital) Unknown [address] [facility] [id number] 01/30/2020 12:00:00 AM EST eCW1 (Critical access hospital) Outpatient Attender: MARYAM ROMERO NP [facility] Mis[facility] 01/27/2020 10:30:00 AM EST - 01/27/2020 10:30:00 AM EST [facility] ([facility]) Attender: MARYAM ROMERO NP 01/27/2020 12:00:00 AM EST [facility] ([facility]) Outpatient Attender: SISI SÁNCHEZ [facility] Office 06/2019 12:45:00 PM EST MEDENT ([facility] Unknown [address] [facility] [id number] 01/07/2020 12:00:00 AM EST eCW1 (Critical access hospital) [facility] [place] [address] [facility] [id number] 01/05/2020 12:00:00 AM EST eCW1 (Critical access hospital) Outpatient Attender: MARYAM ROMERO NP [facility] 12/30/2019 11:30:00 AM EDT - 12/30/2019 11:30:00 AM EDT [facility] ([facility]) Attender: MARYAM ROMERO NP 12/30/2019 12:00:00 AM EDT [facility] ([facility]) Psychiatric Diagnostic Evaluation with Medical Service s Att[facility]: [facility] 12/02/2019 04:00:00 AM EDT - 12/02/2019 04:00:00 AM EDT [facility] ([facility]) Attender: MARYAM ROMERO NP 12/02/2019 12:00:00 AM EDT [facility] ([facility]) Attender: MARYAM ROMERO NP 11/27/2019 12:00:00 AM EDT [facility] ([facility]) Outpatient Attender: MARYAM ROMERO NP [facility] 11/24/2019 03:00:00 AM EDT - 11/24/2019 03:00:00 AM EDT [facility] ([facility]) Outpatient Attender: Priya Duong [place] Main office - [facility] 11/21/2019 12:00:00 PM EDT MEDENT ([facility]) IP PSYCH Attender: Pj crow MDAttender: ANTHONY MULLER MDAdmitter: Pj Pageland MDConsultant: NIEVES NOEL MDConsultant: ANDREA GARCIA MD [id number] 11/09/2019 04:27:24 PM EDT - 11/13/2019 03:30:00 PM EDT [facility] Patient discharged. 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 [place] [address] 09/09/2019 12:00:00 AM EDT eCW1 (Critical access hospital) Outpatient Attender: Jyoti LOGAN Main Office 08/19/2019 01:30:0 0 PM EDT MEDENT ([facility]) Outpatient Attender: MARYAM ROMERO NP [facility] Misael quiroga 08/04/2019 01:00:00 AM EDT - 08/04/2019 01:00:00 AM EDT [facility] ([facility]) Attender: MARYAM ROMERO NP 08/04/2019 12:00:00 AM EDT [facility] ([facility]) [facility] [address] [facility] [place] [address] 07/29/2019 12:00:00 AM EDT eCW1 (Critical access hospital) [facility] [address] [place] [address] [place] [address] 07/21/2019 12:00:00 AM EDT eCW1 (Critical access hospital) Outpatient Attender: MARYAM ROMERO NP [facility] Misael quiroga 07/07/2019 01:30:00 AM EDT - 07/07/2019 01:30:00 AM EDT [facility] ([facility]) Attender: MARYAM ROMERO NP 07/07/2019 12:00:00 AM EDT [facility] ([facility]) [facility] [address] [facility] [place] [address] 07/04/2019 12:00:00 AM EDT eCW1 (Critical access hospital) [facility] [address] [facility] [id number] 07/02/2019 12:00:00 AM EDT eCW1 (Critical access hospital) TEMPMHCTelemed 20" psychotherapy Attender: Claire Hinds [facility] Rakel 06/27/2019 10:30:00 AM EDT - 06/27/2019 10:30:00 AM EDT [facility] ([facility]) Attender: Claire Hinds 06/27/2019 12:00:00 AM EDT [facility] ([facility]) Outpatient Attender: MARYAM ROMERO NP [facility] Misael quiroga 06/09/2019 01:30:00 AM EDT - 06/09/2019 01:30:00 AM EDT [facility] ([facility]) Attender: MARYAM ROMERO NP 06/09/2019 12:00:00 AM EDT [facility] ([facility]) [facility] [address] [facility] [address] 06/04/2019 12:00:00 AM EDT eCW1 (Critical access hospital) [facility] [address] [facility] [address] 04/28/2019 12:00:00 AM EST eCW1 (Critical access hospital) [facility] [address] [place] [address], [place] [address] 04/20/2019 12:00:00 AM EST eCW1 (Critical access hospital) Outpatient Attender: Cornelio Mitchellitter: Cornelio HernandezA-ONCCACTR 04/17/2019 12:00:00 AM EST - 04/17/2019 02:31:27 PM EST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, unspecified, unspecified site [facility]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, unspecified, unspecified site Outpatient Attender: MARYAM ROMERO NP [facility] Misael quiroga 04/14/2019 03:00:00 AM EST - 04/14/2019 03:00:00 AM EST [facility] ([facility]) Attender: MARYAM ROMERO NP 04/14/2019 12:00:00 AM EST [facility] ([facility]) [address] [address] 04/01/2019 12:00:00 AM EST eCW1 (Critical access hospital) [address] [address] 03/31/2019 12:00:00 AM EST eCW1 (Critical access hospital) [address] [address] 03/28/2019 12:00:00 AM EST eCW1 (Critical access hospital) [address] [address] 03/25/2019 12:00:00 AM EST eCW1 (Critical access hospital) Brief Individual Psychotherapy - 30 min Attender: Gena [facility] 03/21/2019 01:00:00 AM EST - 03/21/2019 01:00:00 AM EST [facility] ([facility]) Attender: Gena Giles 03/21/2019 12:00:00 AM EST [facility] ([facility]) [address] [address] 03/17/2019 12:00:00 AM EST eCW1 (Critical access hospital) Outpatient Attender: Priya Duong [facility] 03/11/2019 10:00:00 AM EST MEDENT ([facility]) [address] [address] 03/10/2019 12:00:00 AM EST eCW1 (Critical access hospital) Functional Status Immunizations Vaccine Date Status Description Data Source(s) influenza, recombinant, quadrIvalent,injectable, prese rvative free 04/29/2020 06:06:00 PM EST completed eCW1 ([facility]) COVID-19 dose #2 given elsewhere Unspecified 04/02/2020 09:3 0:00 AM EST completed eCW1 (Critical access hospital) COVID-19, mRNA, LNP-S, PF, 100 mcg/0.5 mL dose 03/02/2020 05 :04:16 PM EST completed 03/02/20200.5 mL JAYANT ([facility]) COVID-19, mRNA, LNP-S, PF, 100 mcg/0.5 mL dose 03/02/2020 05 :04:16 PM EST completed .5 mL JAYANT ([facility]) COVID-19, mRNA, LNP-S, PF, 100 mcg/0.5 mL dose 03/02/2020 05 :04:16 PM EST completed .5 mL JAYANT ([facility]) COVID-19 dose #1 given elsewhere Unspecified 03/02/2020 09:2 9:00 AM EST completed eCW1 (Critical access hospital) Medications Medication Brand Name Start Date Product Form Dose Route Admi nistrative Instructions Pharmacy Instructions Status Indications Reaction Description Data Source(s) sildenafil 50 MG Oral Tablet Sildenafil Citrate 50 MG Silden afil Citrate 50 MG 04/29/2020 12:00:00 AM EST 1.0 {tablet} active Sildenafil Citrate 50 MG eCW1 ([facility]) Fluticasone Propionate 50 MCG/ACT Fluticasone Propionate 50 MCG/ACT 03/03/2020 12:00:00 AM EST 2.0 {sprays_in_each_nostril} act car Fluticasone Propionate 50 MCG/ACT eCW1 ([facility]) Fluticasone Propionate 50 MCG/ACT Fluticasone Propionate 50 MCG/ACT 03/03/2020 12:00:00 AM EST 2.0 {sprays_in_each_nostril} act car Fluticasone Propionate 50 MCG/ACT eCW1 ([facility]) Fluticasone Propionate 50 MCG/ACT Fluticasone Propionate 50 MCG/ACT 03/03/2020 12:00:00 AM EST 2.0 {sprays_in_each_nostril} act car Fluticasone Propionate 50 MCG/ACT eCW1 ([facility]) Fluticasone Propionate 50 MCG/ACT Fluticasone Propionate 50 MCG/ACT 03/03/2020 12:00:00 AM EST 2.0 {sprays_in_each_nostril} act car Fluticasone Propionate 50 MCG/ACT eCW1 ([facility]) Fluticasone Propionate 50 MCG/ACT Fluticasone Propionate 50 MCG/ACT 03/03/2020 12:00:00 AM EST 2.0 {sprays_in_each_nostril} act car Fluticasone Propionate 50 MCG/ACT eCW1 ([facility]) Fluticasone Propionate 50 MCG/ACT Fluticasone Propionate 50 MCG/ACT 03/03/2020 12:00:00 AM EST 2.0 {sprays_in_each_nostril} act car Fluticasone Propionate 50 MCG/ACT eCW1 ([facility]) Fluticasone Propionate 50 MCG/ACT Fluticasone Propionate 50 MCG/ACT 03/03/2020 12:00:00 AM EST 2.0 {sprays_in_each_nostril} act car Fluticasone Propionate 50 MCG/ACT eCW1 ([facility]) Fluticasone Propionate 50 MCG/ACT Fluticasone Propionate 50 MCG/ACT 03/03/2020 12:00:00 AM EST 2.0 {sprays_in_each_nostril} act car Fluticasone Propionate 50 MCG/ACT eCW1 ([facility]) Hydroxyzine Hydrochloride 50 MG Oral Tablet hydroxyzine HCl 01/27/2020 12:00:00 AM EST 50 mg by mouth completed [id number] hydroxyzine HCl by mouth [id number] 01/27/2020 05/22/2020 once a day 30 50 mg tablet as needed 80 436 [id number] Maryam Romero [id number] Nurse Practitioner [facility] ([facility]) Fluoxetine 20 MG Oral Capsule [Prozac] Prozac 12/30/2019 12:0 0:00 AM EDT 20 mg by mouth completed [id number] Prozac by mouth [id number] 1 03/29/2020 every morning 30 20 mg capsule 70707 [id number] Ray Romero [id number] Nurse Practitioner [facility] ([facility]) Fluoxetine 20 MG Oral Capsule [Prozac] Prozac 12/30/2019 12:0 0:00 AM EDT 20 mg by mouth completed [id number] Prozac by mouth [id number] 1 06/29/2020 every morning 30 20 mg capsule 56810 [id number] Piotr shyam Diaz [id number] Psychiatric/Mental Health [facility] ([facility]) Trazodone Hydrochloride 50 MG Oral Tablet trazodone 2019 12:00:00 AM EDT 50 mg by mouth completed [id number] trazodone by mouth [id number] 12/25/2019 03/24/2020 at bedtime 30 50 mg tablet 47170 169896 [id number] Pati Romero [id number] Nurse Practitioner [facility] ([facility]) Trazodone Hydrochloride 50 MG Oral Tablet trazodone 2019 12:00:00 AM EDT 50 mg by mouth completed 707224 trazodone by mouth [id number] 88 12/25/2019 06/13/2020 at bedtime 30 50 mg tablet 85762 [id number] Pati Romero [id number] Nurse Practitioner [facility] ([facility]) Fluoxetine 10 MG Oral Capsule [Prozac] Prozac 09/29/2019 12:0 0:00 AM EDT 10 mg by mouth completed 544017 Prozac by mouth [id number] 0 09/29/2019 01/26/2020 every morning 30 10 mg capsule 68281 131829 [id number] Ray Romero [id number] Nurse Practitioner [facility] ([facility]) Fluoxetine 10 MG Oral Capsule [Prozac] Prozac 09/29/2019 12:0 0:00 AM EDT 10 mg by mouth completed [id number] Prozac by mouth [id number] 0 09/29/2019 12/30/2019 every morning 30 10 mg capsule 21902 [id number] Ray Romero [id number] Nurse Practitioner [facility] ([facility]) Tamsulosin hydrochloride 0.4 MG Oral Capsule Tamsulosin HCL 09/23/2019 12:00:00 AM EDT ORAL active [facility] ([facility]) Trazodone Hydrochloride 50 MG Oral Tablet trazodone 2019 12:00:00 AM EDT 50 mg by mouth completed 871640 trazodone by mouth [id number] 88 09/19/2019 11/27/2019 at bedtime 30 50 mg tablet 06497 166300 [id number] Pati Romero [id number] Nurse Practitioner [facility] ([facility]) [place] Carbonate 300 MG Oral Capsule lithium carbonate 12:00:00 AM EDT 300 mg by mouth completed 491959 lithium car bonate by mouth [id number] 09/15/2019 twice a day 300 mg capsule 47191 35101 [id number] Karel Velez [id number] Nurse Practitioner [facility] ([facility]) Hydroxyzine Hydrochloride 50 MG Oral Tablet Hydroxyzine HCL 08/18/2019 12:00:00 AM EDT ORAL active [facility] ([facility] [place] 08/18/2019 12:00:00 AM EDT ORAL active MED[facility] ([facility]) Acetaminophen 325 MG Oral Tablet Acetaminophen 08/18/2019 12:00:00 AM EDT active [facility] ([facility]) Ketoconazole 20 MG/ML Topical Cream Ketoconazole 08/18/2019 12:00:00 AM EDT active [facility] ([facility]) Losartan Potassium 50 MG Oral Tablet Losartan Potassium 12:00:00 AM EDT ORAL active [facility] ([facility]) Trazodone Hydrochloride 50 MG Oral Tablet Trazodone HCL 08/18/2019 12:00:00 AM EDT ORAL active [facility] ([facility]) Levothyroxine Sodium 0.1 MG Oral Tablet Levothyroxine Sodium 08/18/2019 12:00:00 AM EDT ORAL active [facility] ([facility]) Propranolol Hydrochloride 10 MG Oral Tablet Propranolol HCL 08/18/2019 12:00:00 AM EDT ORAL active [facility] ([facility]) Naproxen 500 MG Oral Tablet Naproxen 08/18/2019 12:00:00 AM EDT ORAL active [facility] ([facility]) Fluoxetine 10 MG Oral Capsule Fluoxetine HCL (PMDD) 08/18/2019 1 2:00:00 AM EDT ORAL active MEDENT ( [facility] [place] 07/17/2019 12:00:00 AM EDT ORAL active MEDENT ([facility]) ammonium lactate 120 MG/ML Topical Cream Ammonium Lactate 07/10/2019 12:00:00 AM EDT active MED[facility] ([facility] Trazodone Hydrochloride 50 MG Oral Tablet trazodone 2019 12:00:00 AM EDT 50 mg by mouth completed [id number] trazodone by mouth [id number] 88 06/16/2019 09/14/2019 at bedtime 30 50 mg tablet 28970 367250 [id number] Pati Romero [id number] Nurse Practitioner [facility] ([facility]) [place] [facility] 06/11/2019 12:00:00 AM EDT 9 mg by mouth completed [id number] [place] by mouth [id number] 06/11/2019 09/09/2019 twice a day 30 9 mg tablet 58140 198079 [id number] Maryam Romero [id number] Nurse Reyna willoughby [facility] ([facility]) [place] [facility] 06/09/2019 12:00:00 AM EDT 9 mg by mouth completed [id number] [place] by mouth [id number] 06/09/2019 09/07/2019 every morning 30 9 m g tablet 28656 934220 [id number] Maryam Romero [id number] Nurse Ashley walden [facility] ([facility]) [place] Carbonate 300 MG Oral Capsule lithium carbonate 12:00:00 AM EDT 300 mg by mouth completed 125812 lithium car bonate by mouth [id number] 05/13/2019 09/07/2019 twice a day 30 300 mg capsule as directe d 38399 152577 [id number] Maryam Romero [id number] Nurse Practitioner [facility] ([facility]) [place] Carbonate 300 MG Oral Capsule lithium carbonate 12:00:00 AM EDT 300 mg by mouth completed 823564 lithium car bonate by mouth [id number] 05/13/2019 09/07/2019 twice a day 30 300 mg capsule as directe d 93561 973908 [phone] Maryam Romero [id number] Nurse Practitioner [facility] ([facility]) [place] [facility] 05/12/2019 12:00:00 AM EDT 6 mg by mouth completed [id number] [place] by mouth [id number] 05/12/2019 06/09/2019 twice a day 30 6 mg tablet 17721 [id number] Maryam Romero [id number] Nurse Practi tioner [facility] ([facility]) Docusate Sodium 100 MG Oral Capsule [Colace] Colace 100 MG C olace 100 MG 03/31/2019 12:00:00 AM EST active 1 capsule as needed eCW1 ([facility]) Hydroxyzine Hydrochloride 50 MG Oral Tablet HydrOXYzin e HCl 50 MG HydrOXYzine HCl 50 MG 03/31/2019 12:00:00 AM EST 1.0 {tablet_as_needed} active HydrOXYzine HCl 50 MG eCW1 ([facility]) Hydroxyzine Hydrochloride 50 MG Oral Tablet HydrOXYzin e HCl 50 MG HydrOXYzine HCl 50 MG 03/31/2019 12:00:00 AM EST 1.0 {tablet_as_needed} active HydrOXYzine HCl 50 MG eCW1 ([facility]) Docusate Sodium 100 MG Oral Capsule [Colace] Colace 100 MG C olace 100 MG 03/31/2019 12:00:00 AM EST 1.0 {capsule_as_needed} active Colace 100 MG eCW1 ([facility]) Hydroxyzine Hydrochloride 50 MG Oral Tablet HydrOXYzin e HCl 50 MG HydrOXYzine HCl 50 MG 03/31/2019 12:00:00 AM EST 1.0 {tablet_as_needed} active HydrOXYzine HCl 50 MG eCW1 ([facility]) Hydroxyzine Hydrochloride 50 MG Oral Tablet HydrOXYzin e HCl 50 MG HydrOXYzine HCl 50 MG 03/31/2019 12:00:00 AM EST active 1 tablet as needed eCW1 ([facility]) Hydroxyzine Hydrochloride 50 MG Oral Tablet HydrOXYzin e HCl 50 MG HydrOXYzine HCl 50 MG 03/31/2019 12:00:00 AM EST 1.0 {tablet_as_needed} active HydrOXYzine HCl 50 MG eCW1 ([facility]) Docusate Sodium 100 MG Oral Capsule [Colace] Colace 100 MG C olace 100 MG 03/31/2019 12:00:00 AM EST 1.0 {capsule_as_needed} active Colace 100 MG eCW1 ([facility]) Docusate Sodium 100 MG Oral Capsule [Colace] Colace 100 MG C olace 100 MG 03/31/2019 12:00:00 AM EST 1.0 {capsule_as_needed} active Colace 100 MG eCW1 ([facility]) Hydroxyzine Hydrochloride 50 MG Oral Tablet HydrOXYzin e HCl 50 MG HydrOXYzine HCl 50 MG 03/31/2019 12:00:00 AM EST 1.0 {tablet_as_needed} active HydrOXYzine HCl 50 MG eCW1 ([facility]) Hydroxyzine Hydrochloride 50 MG Oral Tablet HydrOXYzin e HCl 50 MG HydrOXYzine HCl 50 MG 03/31/2019 12:00:00 AM EST 1.0 {tablet_as_needed} active HydrOXYzine HCl 50 MG eCW1 ([facility]) Hydroxyzine Hydrochloride 50 MG Oral Tablet HydrOXYzin e HCl 50 MG HydrOXYzine HCl 50 MG 03/31/2019 12:00:00 AM EST 1.0 {tablet_as_needed} active HydrOXYzine HCl 50 MG eCW1 ([facility]) Hydroxyzine Hydrochloride 50 MG Oral Tablet HydrOXYzin e HCl 50 MG HydrOXYzine HCl 50 MG 03/31/2019 12:00:00 AM EST 1.0 {tablet_as_needed} active HydrOXYzine HCl 50 MG eCW1 ([facility]) Hydroxyzine Hydrochloride 50 MG Oral Tablet HydrOXYzin e HCl 50 MG HydrOXYzine HCl 50 MG 03/31/2019 12:00:00 AM EST 1.0 {tablet_as_needed} active HydrOXYzine HCl 50 MG eCW1 ([facility]) Hydroxyzine Hydrochloride 50 MG Oral Tablet HydrOXYzin e HCl 50 MG HydrOXYzine HCl 50 MG 03/31/2019 12:00:00 AM EST 1.0 {tablet_as_needed} active HydrOXYzine HCl 50 MG eCW1 ([facility]) Hydroxyzine Hydrochloride 50 MG Oral Tablet HydrOXYzin e HCl 50 MG HydrOXYzine HCl 50 MG 03/31/2019 12:00:00 AM EST 1.0 {tablet_as_needed} active HydrOXYzine HCl 50 MG eCW1 ([facility]) Docusate Sodium 100 MG Oral Capsule [Colace] Colace 100 MG C olace 100 MG 03/31/2019 12:00:00 AM EST active 1 capsule as needed eCW1 ([facility]) Hydroxyzine Hydrochloride 50 MG Oral Tablet HydrOXYzin e HCl 50 MG HydrOXYzine HCl 50 MG 03/31/2019 12:00:00 AM EST active 1 tablet as needed eCW1 ([facility]) Hydroxyzine Hydrochloride 50 MG Oral Tablet HydrOXYzin e HCl 50 MG HydrOXYzine HCl 50 MG 03/31/2019 12:00:00 AM EST 1.0 {tablet_as_needed} active HydrOXYzine HCl 50 MG eCW1 ([facility]) Docusate Sodium 100 MG Oral Capsule [Colace] Colace 100 MG C olace 100 MG 03/31/2019 12:00:00 AM EST 1.0 {capsule_as_needed} active Colace 100 MG eCW1 ([facility]) Hydroxyzine Hydrochloride 50 MG Oral Tablet HydrOXYzin e HCl 50 MG HydrOXYzine HCl 50 MG 03/31/2019 12:00:00 AM EST 1.0 {tablet_as_needed} active HydrOXYzine HCl 50 MG eCW1 ([facility]) Docusate Sodium 100 MG Oral Capsule [Colace] Colace 100 MG C olace 100 MG 03/31/2019 12:00:00 AM EST 1.0 {capsule_as_needed} active Colace 100 MG eCW1 ([facility]) Hydroxyzine Hydrochloride 50 MG Oral Tablet HydrOXYzin e HCl 50 MG HydrOXYzine HCl 50 MG 03/31/2019 12:00:00 AM EST 1.0 {tablet_as_needed} active HydrOXYzine HCl 50 MG eCW1 ([facility]) Austedo Austedo 03/11/2019 12:00:00 AM EST ORAL active MEDENT ([facility]) Austedo Austedo 10/22/2018 12:00:00 AM EDT 6 mg by mouth completed [id number] Austedo by mouth [id number] 10/22/2018 05/11/2019 twice a day 30 6 mg tablet [id number] Maryam Romero [id number] Nurse Practi tioner [facility] ([facility]) quetiapine 100 MG Oral Tablet [Seroquel] Seroquel 09/10/2014 12 :00:00 AM EDT 100 mg by mouth completed [id number] Seroquel by mouth [id number] 8 09/10/2014 03/01/2020 at bedtime 30 100 mg tablet 07932 [id number] Justin Romero [id number] Nurse Practitioner Accumortiz ([facility]) Insurance Providers Payer name Policy type / Coverage type Policy ID Covered libertarian ID Covered libertarian's relationship to hunt Policy Hunt Plan Information UN COMMUNITY PLAN [facility] [id number] SP [id number] [facility] I [id number] Self [id number] [facility] COMMUNITY PLAN [facility] [id number] SP [id number] [facility] O [id number] S [id number] [facility] MEDICAID [id number] Self [id number] [facility] I [id number] Self [id number] [facility] COMMUNITY PLAN [facility] [id number] SP [id number] [facility] [id number] Self [id number] [facility] [id number] SP [id number] ANSI-Medicaid [id number] ANSI-Medicaid [id number] [facility] Commercial [id number] Self [id number] ANSI-Medicaid [id number] U/HC Medicaid Comm Plan Commercial [id number] Self [id number] [facility] Commercial [id number] Self [id number] ANSI-Medicaid [id number] ANSI-Medicaid [id number] ANSI-Medicaid [id number] ANSI-Medicaid [id number] ANSI-Medicaid [id number] [facility] Commercial [id number] Self [id number] ANSI-Medicaid [id number] ANSI-Medicaid [id number] ANSI-Medicaid [id number] ANSI-Medicaid [id number] ANSI-Medicaid [id number] ANSI-Medicaid [id number] ANSI-Medicaid [id number] ANSI-Medicaid [id number] ANSI-Medicaid [id number] ANSI-Medicaid [id number] ANSI-Medicaid [id number] [facility]AN [facility] [id number] SP [id number] ANSI-Medicaid [id number] [facility] Commercial [id number] Self [id number] ANSI-Medicaid [id number] ANSI-Medicaid [id number] ANSI-Medicaid [id number] ANSI-Medicaid [id number] ANSI-Medicaid [id number] ANSI-Medicaid [id number] ANSI-Medicaid [id number] ANSI-Medicaid [id number] ANSI-Medicaid [id number] [facility] [id number] SP [id number] ANSI-Medicaid [id number] [facility] Commercial [id number] Self [id number] [facility] [id number] SP [id number] [facility] Commercial [id number] Self [id number] [facility] Community Plan Commercial [id number] Self [id number] [facility] Community Plan Medigap Part B [id number] Self [id number] [facility] Community Plan Commercial [id number] Self [id number] [facility] Commercial [id number] Self [id number] [facility] Commercial [id number] Self [id number] OTHER1 UNAVAILABLE UNAVAILA BLE [facility]mo Commercial [id number] Self [id number] UNHC COMMUNITY PLAN MCDO [id number] SP [id number] UNHC COMMUNITY PLAN MCDO [id number] SP [id number] [facility] Hmo Commercial Self U/HC Medicaid Comm Plan Commercial Self MEDICAID [id number] SP [id number] [facility] Community Plan Commercial Self [facility]) O [id number] S [id number] [facility] [id number] SP [id number] SELF PAY UNAVAILABLE SP UNAVAILA BLE OTHER1 [id number] S [id number] MEDICAID [id number] [facility] OFF[facility] [id number] S [id number] MEDICAID [id number] S [id number] [facility] OFF[facility] [id number] S [id number] [id number] [facility] [id number] Problems, Conditions, and Diagnoses Code Display Name Description Problem Type Effective Dates Data Source(s) N18.31 Chronic kidney disease, stage 3a Chronic kidney disease, stage 3a Problem 04/29/2020 12:00:00 AM EST eCW1 ([facility]) F31.0 Bipolar disorder, current episode hypoma delgado Bipolar I Disorder, Current or most recent episode hypomanic Condition 04/20/2020 12:00:00 AM EST Ac cumedic ([facility]) M75.42 [id number] Impingement syndrome of left shoulder Pro blem 03/03/2020 12:00:00 AM EST eCW1 ([facility]) 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 ED (erectile dysfunction) Problem 03/03/2020 12:00:00 AM EST eCW1 ([facility]) F31.4 Bipolar disorder, current ep isode depressed, severe, without psychotic features Bipolar I Disorder, Current or most recent episode dep ressed, Severe Condition 01/27/2020 12:00:00 AM EST [facility] ([facility]) F31.12 Bipolar disorder, current ep isode manic without psychotic features, moderate Bipolar I Disorder, Current or most recent episode man ic, Moderate Condition 01/27/2020 12:00:00 AM EST [facility] ([facility]) K11.5 [id number] Sialolithiasis of submandibular gland Pro blem 09/09/2019 12:00:00 AM EDT eCW1 ([facility]) 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, extranodal and solid organ sites Unspecified b-cell lymphoma, extranodal and solid organ sites Diagnosis 02:51:33 PM [facility] R45.851 Suicidal ideations Suicidal ideations Diagnosis 08/2019 05:05:45 PM EDT [facility] Psychiatric Evaluation Psychiatric Evaluation Diagnosi s 11/09/2019 04:27:24 PM EDT [facility] ems other ems other Diagnosis 11/09/2019 04:27:24 PM ED T [facility] suicidal ideations suicidal ideations Diagnosis 0 08:24:00 AM T [facility] Surgeries/Procedures Procedure Description Date Indications Data Source(s) [facility] Telemed E/M Lvl 3--Est pt 04/20/2020 12:00:00 AM EST - 04/20/2020 12:00:00 AM EST [facility] ([facility]) [facility] Telemed E/M Lvl 3--Est pt 04/20/2020 12:00:[address] [facility] ([facility]) OFFICE OUTPATIENT VISIT 15 MINUTES 03/23 12:00:00 AM EST - 03/23/2020 12:00:00 AM EST [facility] ([facility]) OFFICE OUTPATIENT VISIT 15 MINUTES 03/23/2020 12:00:00 AM EST [facility] ([facility]) OFFICE OUTPATIENT VISIT 15 MINUTES 02/23 12:00:00 AM EST - 02/24/2020 12:00:00 AM EST [facility] ([facility]) OFFICE OUTPATIENT VISIT 15 MINUTES 02/24/2020 12:00:00 AM EST [facility] ([facility]) OFFICE OUTPATIENT VISIT 15 MINUTES 01/26 12:00:00 AM EST - 01/27/2020 12:00:00 AM EST [facility] ([facility]) OFFICE OUTPATIENT VISIT 15 MINUTES 01/27/2020 12:00:00 AM EST [facility] ([facility]) OFFICE OUTPATIENT VISIT 15 MINUTES 12/29 12:00:00 AM EDT - 12/30/2019 12:00:00 AM EDT [facility] ([facility]) OFFICE OUTPATIENT VISIT 15 MINUTES 12/30/2019 12:00:00 AM EDT [facility] ([facility]) Psychiatric Diagnostic Evaluation with Medical Services 12/02/2019 12:00:00 AM EDT - 12/02/2019 12:00:00 AM EDT [facility] ([facility]) Psychiatric Diagnostic Evaluation with Medical Services 12/02/2019 12:00:00 AM EDT [facility] ([facility]) OFFICE OUTPATIENT VISIT 15 MINUTES 11/26 12:00:00 AM EDT - 11/27/2019 12:00:00 AM EDT [facility] ([facility]) OFFICE OUTPATIENT VISIT 15 MINUTES 11/24/2019 12:00:00 AM EDT [facility] ([facility]) HEMATOPATHOLOGY HEMATOPATHOLOGY Routine 10/16/2019 1:11 PM EDT 10/16/2019 01:11:00 PM [facility] FLOW CYTOMETRY CELL CYCLE/DNA SWEETIE LEUKEMIA / LYMPHOM A PHENOTYPE, PERIPHERAL BLOOD Routine 10/16/2019 1:11 PM EDT 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 10/16/2019 01:11:00 PM EDT 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 [facility] 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 PROTEIN TOTAL XCPT REFRACTOMETRY URINE PROTEIN ELECTROPHORESIS, URINE Routine 10/16/2019 1:11 PM EDT 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 10/16/2019 01:11:00 PM EDT 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 [facility] 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 BLOOD COUNT COMPLETE AUTO&AUTO DIFRNTL WBC COUNT CBC AND DIFFER ENTIAL STAT 10/16/2019 1:11 PM EDT 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 10/16/2019 01:11:00 PM EDT 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 [facility] 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 PROTEIN XCPT REFRACTOMETRY SERUM PLASMA/WHL BLD PROTE IN ELECTROPHORESIS WITH SERUM TOTAL PROTEIN Routine 10/16/2019 1:11 PM EDT 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 10/16/2019 01:11:00 PM EDT 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 [facility] 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 LACTATE DEHYDROGENASE LDH LACTATE DEHYDROGENASE Routine 10/16/2019 1:11 PM EDT 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 10/16/2019 01:11:00 PM EDT 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 [facility] 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 ECHO TTHRC R-T 2D W/WOM-MODE COMPL SPEC&COLR DOP 10/06 12:00:00 AM EDT MEDENT ([facility]) INTERROGATION EVAL IN PERSON 1/DUAL/TRANSFER MAN LEAD PM 2019 12:00:00 AM EDT MED[facility] ([facility]) ECG ROUTINE ECG W/LEAST 12 LDS W/I&R 08/19/2019 12:00: 00 AM EDT MED[facility] ([facility]) MHC Telemed E/M Lvl 3--Est pt 08/04/2019 12:00:00 AM EDT - 08/04/2019 12:00:00 AM EDT [facility] ([facility]) MHC Telemed E/M Lvl 3--Est pt 08/04/2019 12:00:00 AM E DT [facility] ([facility]) DEBRIDEMENT NAIL ANY METHOD 6/> 07/31/2019 12:00:00 AM EDT MEDENT ([facility] MHC Telemed E/M Lvl 3--Est pt 07/07/2019 12:00:00 AM EDT - 07/07/2019 12:00:00 AM EDT [facility] ([facility]) MHC Telemed E/M Lvl 3--Est pt 07/07/2019 12:00:00 AM E DT [facility] ([facility]) TEMPMHCTelemed 20" psychotherapy 020 12:00:00 AM EDT - 06/27/2019 12:00:00 AM EDT [facility] ([facility]) TEMPMHCTelemed 20" psychotherapy 06/27/2019 12:00:00 A M EDT [facility] ([facility]) MHC Telemed E/M Lvl 3--Est pt 06/09/2019 12:00:00 AM EDT - 06/09/2019 12:00:00 AM EDT [facility] ([facility]) [facility] Telemed E/M Lvl 3--Est pt 06/09/2019 12:00:00 AM E DT [facility] ([facility]) FLOW CYTOMETRY CELL CYCLE/DNA SWEETIE LEUKEMIA / LYMPHOM A PHENOTYPE, PERIPHERAL BLOOD Routine 04/17/2019 1:57 PM EST 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 04/17/2019 06:57:00 PM EST 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 [facility] 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 BLOOD COUNT COMPLETE AUTO&AUTO DIFRNTL WBC COUNT CBC AND DIFFER ENTIAL STAT 04/17/2019 1:57 PM EST 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 04/17/2019 06:57:00 PM EST 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 [facility] 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 PROTEIN ELECTROPHORETIC FRACTJ&QUANTJ SERUM PROTEIN E LECTROPHORESIS WITH SERUM TOTAL PROTEIN Routine 04/17/2019 1:57 PM EST 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 04/17/2019 06:57:00 PM EST 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 [facility] 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 LACTATE DEHYDROGENASE LDH LACTATE DEHYDROGENASE Routine 04/17/2019 1:57 PM EST 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 04/17/2019 06:57:00 PM EST 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 [facility] 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 HEMATOPATHOLOGY HEMATOPATHOLOGY Routine 04/17/2019 12:00 AM EST 04/17/2019 05:00:00 AM [facility] OFFICE OUTPATIENT VISIT 15 MINUTES 04/14 12:00:00 AM EST - 04/14/2019 12:00:00 AM EST [facility] ([facility]) OFFICE OUTPATIENT VISIT 15 MINUTES 04/14/2019 12:00:00 AM EST [facility] ([facility]) Brief Individual Psychotherapy - 30 min 03/21/2019 12:00:00 AM EST - 03/21/2019 12:00:00 AM EST [facility] ([facility]) Brief Individual Psychotherapy - 30 min 03/21/2019 12: 00:00 AM EST [facility] ([facility]) DEBRIDEMENT NAIL ANY METHOD 6/> 03/19/2019 12:00:00 AM EST [facility] ([facility] PROGRAM EVAL IMPLANTABLE IN PERSN DUAL LD PACER 2019 12:00:00 AM EST [facility] ([facility]) Results ID Date Data Source [facility] Shoulder, complete 03/12/2020 12:00:00 AM EST eCW1 ([facility]) Name Value Range Interpretation Code Description Data Jing rce(s) Supporting Document(s) [facility] Shoulder, complete eCW1 ([facility]) ID Date Data Source [id number] 12/01/2019 02:06:54 PM EDT [facility] Name Value Range Interpretation Code Description Data Jing rce(s) Supporting Document(s) Progress Notes [facility] DCUQAp4jUsWEFsUm52/OLJggNVBpo6SyJSfbCXs9DSozSGDdQ2HlWSU8nZ1rWII5QHkUFkWgSaMiMKP1 lbm [file] 9GDQo= ID Date Data Source [id number] 12/01/2019 02:06:44 PM EDT [facility] Name Value Range Interpretation Code Description Data Jing rce(s) Supporting Document(s) Progress Notes [facility] HORTNb0eNoUNAuPk65/EPYylPEScl9GkKSqxDAx9YTxvIGLrP6XqPKU9gB2jZWD9PYlKIiPaYvPgJDC4 lbm [file] BDKyWkA9TLD5YpFrTHDkDfMwAhLbMA1ISd2FGoK6VXF4bPTbMz1FFobkWliGLjHxAG8EPAw= ID Date Data Source [id number] 11/25/2019 08:45:39 AM EDT [facility] Name Value Range Interpretation Code Description Data Jing rce(s) Supporting Document(s) H&P [facility] TMOMIt1aGdPIJeYl31/HNEauGLFzb3CrUDffDXv9DFkjOGLlU7EuGGQ9yZ3kGYO4HZfMSkOdMuLzMSDl lbm [file] ZvkhZNLuNmPfFF2LBl5TWqG5JUL6nMYfVm6MWzEhDShVVzOcSV5WYBy= ID Date Data Source [id number] 11/25/2019 08:31:03 AM EDT [facility] Name Value Range Interpretation Code Description Data Jing rce(s) Supporting Document(s) Discharge Summary [facility] BQHGHr4tMuTJVrTc41/KGDszRAQhf7VpVYceDOd7ACxgRIYhL9FqPHB1tO3yREG8ZBeAWbTxYsYhOKEp lbm [file] qdEYLKEg9B ID Date Data Source [id number] 11/14/2019 10:36:42 AM EDT [facility] Name Value Range Interpretation Code Description Data Jing rce(s) Supporting Document(s) Progress Notes [facility] ZMGHZx8dXkJSDvVx32/RICbaWQGrl6MaRLoaMAw2GFecLHXyM4YyFUE8tT2gPSM6ZIwWXgGaLfQsCENe lbm [file] ICAgICAgICAgICAgICAgICAgICAgICAgICAgICAgICAgICAgICAgICAgICAgICAgICAgICAgICAgICAg ICAgICAgICAgICAgICAgICAgICAgICAgDQogICAgICAgICAgICAgICAgICAgICAgICAgICAgICAgICAg ICAgICAgICAgICAgICAgICAgICAgICAgICAgICAgIC AgICAgICAgICAgICAgICAgICAgICAgICAgICAgICAgICAgDQogICAgICAgICAgICAgICAgICAgICAgIC AgICAgICAgICAgICAgICAgICAgICAgICAgICAgICAgICAgICAgICAgICAgICAgICAgICAgICAgICAgIC AgICAgICAgICAgICAgICAgDQogICAgICAgICAgICAg ICAgICAgICAgICAgICAgICAgICAgICAgICAgICAgICAgICAgICAgICAgICAgICAgICAgICAgICAgICAg ICAgICAgICAgICAgICAgICAgICAgICAgICAgDQogICAgICAgICAgICAgICAgICAgICAgICAgICAgICAg ICAgICAgICAgICAgICAgICAgICAgICAgICAgICAgIC AgICAgICAgICAgICAgICAgICAgICAgICAgICAgICAgICAgICAgDQogICAgICAgICAgICAgICAgICAgIC AgICAgICAgICAgICAgICAgICAgICAgICAgICAgICAgICAgICAgICAgICAgICAgICAgICAgICAgICAgIC AgICAgICAgICAgICAgICAgICAgDQogICAgICAgICAg ICAgICAgICAgICAgICAgICAgICAgICAgICAgICAgICAgICAgICAgICAgICAgICAgICAgICAgICAgICAg ICAgICAgICAgICAgICAgICAgICAgICAgICAgICAgDQogICAgICAgICAgICAgICAgICAgICAgICAgICAg ICAgICAgICAgICAgICAgICAgICAgICAgICAgICAgIC AgICAgICAgICAgICAgICAgICAgICAgICAgICAgICAgICAgICAgICAgDQogICAgICAgICAgICAgICAgIC AgICAgICAgICAgICAgICAgICAgICAgICAgICAgICAgICAgICAgICAgICAgICAgICAgICAgICAgICAgIC AgICAgICAgICAgICAgICAgICAgICAgDQogICAgICAg ICAgICAgICAgICAgICAgICAgICAgICAgICAgICAgICAgICAgICAgICAgICAgICAgICAgICAgICAgICAg FHRoPYXvSHKvUHVdITApWNSsTAQeIKJoPFYdSIVmIREnMIb9R6zkEJHrNNAcYI7uUFd9Xm0+DQoNCmVu AOX2vpUsaE9VPL2dh3JyJFnfUGCxd6FyNVo9JO5OGI MvKNeoLB3WFFldlq6NWXLtTIKtmAIDq7rnZwHgHLS6RUMcTuzlHJ0CUCJoI7nltxLxABDwLRNCWC0CAj WqC5WyfC54TOKRIq4+GHmaztXpWzwAOvH4PFOax7FbKHk9FI8EIKSlBiosr6RfJpIaEEFMOEebIC0XGD O7LWZ0KXKjZk8CDZMwS655fsRnNL0TAo1VNtLzMW3b hr2BNdCaRMBwDkdMZtc4BUckCH8EoZWhGBnMcm2xnmQrlhWNx4GhwsYyxJGPsNcbXHVeXF0ei9Bflo20 kFvzHXRoVG5jTQ3cWVDySRFqVfCmNRXLJH0QQGDbLSDtmFImFFEyBGXZOX9NOAbzPTI6KvwgxuCttVSp XCefFS2QEYFgpsXbUqVqDAJXWPk+Dh4MIE8jm0QaAC swNmErDQ2zfc6RUBfNSlBmI1C3iKZeT3H1IEiuIw0PUXLsLGSrAdCvNBVDKLzcWQ9TYQ8htmR8IB8UxU XxRZXoDATmaUOhHCw9F03tlBSkOSelWC1JWPZ+Rambo+Qq5BMVEeKZGjKOPqBrCpMBNHBtQrA3QnZ9UJu8 YnR8BzEL69cHbcvpNdVWocKK1JER5uTJCvOLWGWC8N lDEfqE9eqlKtKLJmNQJRLsEzO22qjSFzPGWdUIY7ROLbPg1AKVPrY4VtjiUfzTfwkqDrJFGlVRIKLK8D SJdlwaZhcQXodPubHR52hEjdXM9XZn4PDbPbYV0pjg6DrHXvZg3LLUTfBO4CLNYiFPSsBPBaYSP0TZUv GxXsLMulXADbDBHtZWB9EXPnDNByGR7DYfEhXXEjBs F5AYTlFTZrIVSluh3HCFSxBXGkPlU7EOAyGZMgCRLgKOjuWAVkZRBfMSM8MKVoNIKaQK8NOuKiQTUcNI V3PhXnOOUuHRYmaa1YLSZwYTYfZbokWKPlVJXyKBYgGXruYCNbXUWcPxm8FOYiCHJsZO8GHnFzZSNoTP A4DDawZESlVBRkek2ACDKwGAIzFRE9IfDsUYKeLIFi GOodPZZkJKO4UACfAZFfHGTgSO7FWzImHQCmLJOcEoedBUZmWTPtae4EVSDvACXtSGWnFZXjITUvJYSz UAlqYPCyYGY6GFsfLLJgIUHvIF1XDaFkMEPlCKwmYPFzUAEfIMEpbc4XFRXuPXIkTIE0BKHbTDSsNGPs UBnnMPKnHSE4OkP5RUEyWGYbHD3WRwHpBABeRLj1PB DqGFTxJCBhvm4JUKVbQXRtSUifHSRdMNTdZYJyCPdvMRNeCNM8ULM5BQUxJAVhSI9ZFhIbVZOzJpQdXC WgBDDoFFDdfc4OPXOyAXQjXXJqRXGmJCHdQVNnZYffWGEhNDFkAlSuICJwMADbLR9CBoBvPFTlZoVgSS QxTPAwKJHgan2JSGXkOQGmDHtgVHBlOWRxINLyFJme UGQlFYGwXeBfLJCnZXUuTQ0SQmKuTHVaQkGwWsZoCAEiWGTzum3VULMdFKUxKaD2XsSfRPTbYYFnAMv2 jcOefBEiBBb8YA2YV1WqqqPlChkHJm4Pf294UZT6DCGjSc5OU6vvRw9pGVHkWFTMQh7RXOr9SWAxPEXp OCM7KtN7WOLvIzV1T0LjMIZ7GFSuTzadNrS+IDw4YW B9PHMqCHSvTZhnEBJxPYxwYYLlDuV8FZZ3YET4YQ0tTOFODu6+EGklmMQlcWblBSVGXkDtAaQ5YZfvCY VPRg0K ID Date Data Source [id number] 11/13/2019 03:43:47 PM EDT [facility] Name Value Range Interpretation Code Description Data Jing rce(s) Supporting Document(s) Care Plan [facility] KXDQDj6tVdQGGnIa22/BZMfzEVKzn9OyDChqGRz5IOxjTJBpG0LwTQT9iC3cDMM3NWvIRwBiCrOpYGGb lbm HxJppMUaScIISgZzbJLbRqCNuiBaqzaAWhWU2NsME4JXXyU10bGHOvYVKhX2GtGROdDuJ+Vj8WSWKbeX QhAS2TTywX4Vrpi0d8VL0bwP+Mw8nZJaFeC3vWEFAyp8AL61NXvOb5S65hj+3vd1MzKfalH2vYlr6G/d CEJgus6njFCAT/55T9gMriMoq/78WpjqWUovq//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 [file] AgICAgICAgICAgICAgICAgICAgICAgICAgICAgICAgICAgICAgICAgICAgICAgICAgICAgICAgICAgIC AgICAgICAgICAgICAgICAgICAgICAgICAgDQogICAgICAgICAgICAgICAgICAgICAgICAgICAgICAgIC AgICAgICAgICAgICAgICAgICAgICAgICAgICAgICAg ICAgICAgICAgICAgICAgICAgICAgICAgICAgICAgICAgICAgDQogICAgICAgICAgICAgICAgICAgICAg ICAgICAgICAgICAgICAgICAgICAgICAgICAgICAgICAgICAgICAgICAgICAgICAgICAgICAgICAgICAg ICAgICAgICAgICAgICAgICAgDQogICAgICAgICAgIC AgICAgICAgICAgICAgICAgICAgICAgICAgICAgICAgICAgICAgICAgICAgICAgICAgICAgICAgICAgIC AgICAgICAgICAgICAgICAgICAgICAgICAgICAgDQogICAgICAgICAgICAgICAgICAgICAgICAgICAgIC AgICAgICAgICAgICAgICAgICAgICAgICAgICAgICAg ICAgICAgICAgICAgICAgICAgICAgICAgICAgICAgICAgICAgICAgDQogICAgICAgICAgICAgICAgICAg ICAgICAgICAgICAgICAgICAgICAgICAgICAgICAgICAgICAgICAgICAgICAgICAgICAgICAgICAgICAg ICAgICAgICAgICAgICAgICAgICAgDQogICAgICAgIC AgICAgICAgICAgICAgICAgICAgICAgICAgICAgICAgICAgICAgICAgICAgICAgICAgICAgICAgICAgIC AgICAgICAgICAgICAgICAgICAgICAgICAgICAgICAgDQogICAgICAgICAgICAgICAgICAgICAgICAgIC AgICAgICAgICAgICAgICAgICAgICAgICAgICAgICAg ICAgICAgICAgICAgICAgICAgICAgICAgICAgICAgICAgICAgICAgICAgDQogICAgICAgICAgICAgICAg ICAgICAgICAgICAgICAgICAgICAgICAgICAgICAgICAgICAgICAgICAgICAgICAgICAgICAgICAgICAg ICAgICAgICAgICAgICAgICAgICAgICAgDQogICAgIC AgICAgICAgICAgICAgICAgICAgICAgICAgICAgICAgICAgICAgICAgICAgICAgICAgICAgICAgICAgIC GwWVNyULQyZGZlKCVuCRBxDYQkPMMwNXByFNFxLXJuKJVvUUe5T5csCXXzPLTgVW7qEAy6Ql3+DQoNCm SyBGZ7mnLwuO9HOH5av6LbMWtdTQZlx6BfVAf6KA5E BIZsVGdcEV2IEGbbqp0NQLBkFVPoeANMs3toQbEyMLP7YRRlGbfiVD7JOSZuP8ouzcGhQRTbBKCQGNgq LUGTGT2SZcKqX2GsuH04BJDZGu3+JWcbixAdBhqKLhM1UIFpz7JuLMi3QM9SRRGuJocnk8SeZnpkVHMI IRonGV3YYPV0PZV0PCZpTi2ARZGeZ701irViFK9CFd 3QCvHuLL5jvw9SUlkaBOQjOgjIKnj1HEjtZJ0ZwLPoLAsVBNCwXUVmSI9tBvvoT0UzvticQd2qEZfyKb 3hKNEgZT9iTX9zMQRzOZIxReMiKFOKPL4LHPYkIBCqvCFdNFXcJTVUVG9BCHcpFZR7EincuqFupTBmTX yhDV4PCHQlhiVkBwyjIBKTBZt+Nt9JZJ9ow4JnXKkb ZFLeYK8aqy0KIQsSDtIxL8A9xXDtL1F8YHdqRv3FSYAqIYIqUtIkJSAYRNsvPR9NZD1zdlD6ZF2ZkJPu JRDbWRKfsVEwVWp9J60cqMYxMElmDX9KXHY+Rambo+Nk9IMIIxPELrFXEvAwLiILFXZvSbD6ZnO9WKr2Hq Z3ZxDC06kTakcrCnDRgcYF0OFV0fZAWtFCBQKX0ZqH OhuK5pcsPbPgVsHXMQVzTgP43gkXXrXYIyPYO6BTAtMl4MLLAgZ6DxgfMpbTvzmsFmRGYsLVCVIB3FUU uljbHgaQZqnGxxXT21rNrqIC3CRd0WBvBoYE9xmd5ExHLpMg4HGNCpCV5YFATwIMKbDOVeOBF6ELIrQa DhXBbqDDJxFFSnTCM4XIBvNLEuLH3QRtGmXRMfPuU9 OgOnLWEmOUDrvz4AZBYxZMGdGmPyZOYsGMJeDBGxLAufSGDmOYLkKEE2UEAyQSWgCQ0RFoSqJLWvJDH3 ATJnNTSjVZOmgb7QQRBhIXBxGsThRLAgYKKeCHLrPGpeIPXpBALyJHvuCYDlUOTvIR7AWePdGUVsNDCb WhhwCQThZRWxjd6FWWZwQIFtSJRdMVPzRDMdTNDcIS jcBVGlMZN4THU5ZCPhTTCtUJ6HGrEiOYLtJGS3QkXvHZRcDGTzyo0PVUFpBRTrSWT6KuOwYCThPTShVI yvYGZxUFL8Prj7FNAfCAKqWS6IFoEnPOZwVQV0TsVfQCClVOAjez7DGCXrILNyZVWwQXMbXTBlAGQeAE hwYKObWIH3PfD8IGJoDPIdTK7JIqQsBZCyNHm3XyUm USPtQAGlzj2NYBApQIAeWJU7KkFmEAVaCGZoJAwxSQOcZEM2SwAbCUIiZJQmHN7TIwHyLRVcRjGuGnGf FGGxKASczl2JJCWjVSPlTUY9OcRkKPUcHPZnZWmwZHJfKPSlPIN8BZPsHMSnZZ5PRmAlMRNuKrW1QXRf CXXiXCFrgr6PAWKuQGClEUS7NJPsJSBoYYVfEOnuGN CfPDMiGFG5GMLuUFMfNU6PVjYzOUUgCpAbPGZkUTLaBREzeh0LNMDpFPLoMrmrVYOpBOThDBPfJHnfTJ BlGMUkLmk7UVLsMYEkAU9LEvHqFQUqZlB6MwFeXCGcFLTmrj8CsMWzlKvrwn6IWPmEAs3OdBlvJHIcQP qaFb3ziMWvCQJtWLUEBw4ZvwTkXEMcLDQGWPafMLCz MAW2VanlCZJxGXUuCFU9BAXcSxIlN1EuSsPpMBMiAhZhQtW8VvYdJ6XzLHOgSSE9Nvt1HRVdG9ZnIPSf ZGQxNGVmZmY+KX3zUWh+Un2Jw1JbynP7dfFiXOnrHMA5ED0SPCPVD0MVXp== ID Date Data Source [id number] 11/13/2019 10:35:40 AM EDT [facility] Name Value Range Interpretation Code Description Data Jing rce(s) Supporting Document(s) Individualized Overall Plan of Care Note [facility] IVXMLf2kMjPSGtKr10/ELYjrCHAoz1SmCAsnIUz4DQbmMHAxX8YjYUZ1mM9lQXK6TXkWElZkLuWwUWDk lbm [file] AgICAgICAgICAgICAgICAgICAgICAgICAgICAgICAgICAgICAgICAgICAgICAgICAgICAgICAgICAgIC AgICAgICAgICAgICAgDQogICAgICAgICAgICAgICAg ICAgICAgICAgICAgICAgICAgICAgICAgICAgICAgICAgICAgICAgICAgICAgICAgICAgICAgICAgICAg ICAgICAgICAgICAgICAgICAgICAgICAgDQogICAgICAgICAgICAgICAgICAgICAgICAgICAgICAgICAg ICAgICAgICAgICAgICAgICAgICAgICAgICAgICAgIC AgICAgICAgICAgICAgICAgICAgICAgICAgICAgICAgICAgDQogICAgICAgICAgICAgICAgICAgICAgIC AgICAgICAgICAgICAgICAgICAgICAgICAgICAgICAgICAgICAgICAgICAgICAgICAgICAgICAgICAgIC AgICAgICAgICAgICAgICAgDQogICAgICAgICAgICAg ICAgICAgICAgICAgICAgICAgICAgICAgICAgICAgICAgICAgICAgICAgICAgICAgICAgICAgICAgICAg ICAgICAgICAgICAgICAgICAgICAgICAgICAgDQogICAgICAgICAgICAgICAgICAgICAgICAgICAgICAg ICAgICAgICAgICAgICAgICAgICAgICAgICAgICAgIC AgICAgICAgICAgICAgICAgICAgICAgICAgICAgICAgICAgICAgDQogICAgICAgICAgICAgICAgICAgIC AgICAgICAgICAgICAgICAgICAgICAgICAgICAgICAgICAgICAgICAgICAgICAgICAgICAgICAgICAgIC AgICAgICAgICAgICAgICAgICAgDQogICAgICAgICAg ICAgICAgICAgICAgICAgICAgICAgICAgICAgICAgICAgICAgICAgICAgICAgICAgICAgICAgICAgICAg ICAgICAgICAgICAgICAgICAgICAgICAgICAgICAgDQogICAgICAgICAgICAgICAgICAgICAgICAgICAg ICAgICAgICAgICAgICAgICAgICAgICAgICAgICAgIC AgICAgICAgICAgICAgICAgICAgICAgICAgICAgICAgICAgICAgICAgDQogICAgICAgICAgICAgICAgIC AgICAgICAgICAgICAgICAgICAgICAgICAgICAgICAgICAgICAgICAgICAgICAgICAgICAgICAgICAgIC XzSLAaQAZdRNMpEHBrIVGvSVMaLKQoJFs7G2igAUAr BXYfIN0zWNx8Fs0+UDoDVmXsJBW6zlPbnF1IEB8vx5IjXHaySCFyf8InVCn1TB6ZPIUvJHtgQD6AVUks rl9TVHVxBURrvLUDk3ozRpWaMEW2ZQTkDydzRJ3ZNGHvU8zqllAjCKMsXPYZNO1VHtSuR1OsiY78MAAN Cj4+ERtmtyYdSzgCPxEdBRVro4WdWOl1BA5SGZHeWn otn3KmNyMfPQUPMIytPL1DZLX4DNHyBZFrPo2XAMVwD880ooAaHM1CFk5IDrRvJO4bzp9BOjFiNWYhCt mTWwq8MUscVG5KdRQrCQwAesTquzivuWMczFooIVJBlwNeZTgtGDXrBV6eq9AoK6QwFAFSu7WhADZ6VT dnrDbrEII5fz2iPXbhLRbBB7boKWEkUT8zGZ3vNKNe WILdQaZkAFLDTL8OMMLmSCGktECpSYNmOTXIWM3LAMqrKUS3TjleliWlgMGeQRrvSK5RAELepsFbFtPd MCBSDQo+Zk8IOW7fj9WlMPfaCHYoKN9dym8YLPeZTiKoZ4E6eRJeH9K9EFtuNy9BERDrEMUrGqOaWFHE UMucJG6MLF2pwbM8IM1WjGAlJNJeTTDetGAnAHy0E0 6hvRYeJLamPX4IIDL+Rambo+Bz4DFIOoKQZlCWVkVoBdAQEVVkFgP8NfF4WHg1NoZ8XrUH15iHcvlrZtER iqDN8OHX7dLCUuPPSEEQ2FlBFgvC0ufhGmRcInHEJFPjXmJ00vnYZyLBVnBXTwYKAlRv0NALYkM2Wxyd SdaEwuxpMjUYPoMYCDXZ8XYWebsiGbpIMfpKysQD55 aNbvOI0HIy2TZcTcMU7nph5IzFGbAk1AFOGlDW0ALOJeKHYoNWBlGGM0SJSpZkAwYVwyQZMwILLnADG7 MMNwKJStRK8ELiHyMCXxDEq1LDIoFMRiMYJrkc3UKBMnGLKwDYYnAcTrDCAxQABdXKwpKBJrCXGzRNB4 DCMdGSYhPD7PJuVyEOGvTFGyCwKmPWBgXHOnpg2UQA QnOXNmTGCtNSVoPCNhCTErWUqoGHSiTKMbGmc4JKZbMJQaDQ9KGkMnFUQcMGF2HSjaKEUfIKXyuh5JPX CpRVVeBqU4MjApKCDhGCQfDCemYDBjIKTkBxJlSPHqATQyIE9RDiQqQCYjDQE7TalaOPDjTAXedx8VIE EeEGBcZLKqBHYwLDMzOADyBCdlISSmBRY4XkJ3HPGc ZGHdJX1FDxVgSHMxEMA1XVMtVZKgWFNgcw8BJZRrBDHpHiy6EMQsJYXzABPrPThhKYRrVFJ6SIH4GXTa KIWfSB3OGdTpZIOeQYxsPDSbCBZrVNHznw8HTYFvIBGpEYMsEhRtKNHkZWGkDGoiYQLdSKR0GPR9JOGg FPVyTV8ZEhKnZWCaCRr9XREyNOCwMRCcya5GMUKhZQ HgJWd0JbKyBFJbLZYtYJklQOPxGNHeBLV9VICmDIJwKJ8YTzNbEWPtAoT2UOTvTTYhOMCady7UUFYdVK StNZO5GVHzYVHsMPIeAFm9flIxgQMtAAd6KT0SG0TuflCgQoICBh7Et584VMB9YTCxRg1YS7vjUu6qRB FjPQUOJf6YZGv2SAO3XbOeHpZ1AMPwSoRcHpVaIgr5 WLU2FVdgGBpwSeV+AVkcAmjcFUBkJGniYhE9FZC4UdUzYlZaHjawX8NoFQKuLT8yUEOGFh9+DQpzdGFy eCpwZVDWYdPvEDV9FCjeLPHQHr9D ID Date Data Source [id number] 11/13/2019 08:29:55 AM EDT [facility] Name Value Range Interpretation Code Description Data Jing rce(s) Supporting Document(s) Progress Notes [facility] BFWAMb2yJdKVHdVt50/HPFogKEUqf2DgBFszAFq8DFyiCTIfT1StHKS1qX0oWCX1NVkLVbFfAjHbTJJw lbm [file] ID Date Data Source [id number] 11/13/2019 05:11:42 AM EDT [facility] Name Value Range Interpretation Code Description Data Jing rce(s) Supporting Document(s) Nursing Note [facility] MLTIFp6aQpDBKrYm35/BEBejOBTcc6AbCCnnOYd0VMjlTRLkK0LrMWX6iL0mXSM3RJgTRfVaMkEsDLYd lbm [file] ID Date Data Source [id number] 11/12/2019 09:27:13 PM EDT [facility] Name Value Range Interpretation Code Description Data Jing rce(s) Supporting Document(s) Care Plan [facility] HHVUDi4qSoFKCuSx59/KYHjtJNGle9OrPWzqLZz8GFfwNTBjI4ShGJJ1oV0dBBM4FEhVJmGjKqMtFNK8 lbm [file] ICAgICAgICAgICAgICAgICAgICAgICAgICAgICAgICAgICAgICAgICAgICAgICAgICAgICAgICAgICAg ICAgICAgICAgICAgICAgICAgICAgICAgICAgICAgICANCiAgICAgICAgICAgICAgICAgICAgICAgICAg ICAgICAgICAgICAgICAgICAgICAgICAgICAgICAgIC AgICAgICAgICAgICAgICAgICAgICAgICAgICAgICAgICAgICAgICAgICANCiAgICAgICAgICAgICAgIC AgICAgICAgICAgICAgICAgICAgICAgICAgICAgICAgICAgICAgICAgICAgICAgICAgICAgICAgICAgIC AgICAgICAgICAgICAgICAgICAgICAgICANCiAgICAg ICAgICAgICAgICAgICAgICAgICAgICAgICAgICAgICAgICAgICAgICAgICAgICAgICAgICAgICAgICAg ICAgICAgICAgICAgICAgICAgICAgICAgICAgICAgICAgICANCiAgICAgICAgICAgICAgICAgICAgICAg ICAgICAgICAgICAgICAgICAgICAgICAgICAgICAgIC AgICAgICAgICAgICAgICAgICAgICAgICAgICAgICAgICAgICAgICAgICAgICANCiAgICAgICAgICAgIC AgICAgICAgICAgICAgICAgICAgICAgICAgICAgICAgICAgICAgICAgICAgICAgICAgICAgICAgICAgIC AgICAgICAgICAgICAgICAgICAgICAgICAgICANCiAg ICAgICAgICAgICAgICAgICAgICAgICAgICAgICAgICAgICAgICAgICAgICAgICAgICAgICAgICAgICAg ICAgICAgICAgICAgICAgICAgICAgICAgICAgICAgICAgICAgICANCiAgICAgICAgICAgICAgICAgICAg ICAgICAgICAgICAgICAgICAgICAgICAgICAgICAgIC AgICAgICAgICAgICAgICAgICAgICAgICAgICAgICAgICAgICAgICAgICAgICAgICANCiAgICAgICAgIC AgICAgICAgICAgICAgICAgICAgICAgICAgICAgICAgICAgICAgICAgICAgICAgICAgICAgICAgICAgIC AgICAgICAgICAgICAgICAgICAgICAgICAgICAgICAN CiAgICAgICAgICAgICAgICAgICAgICAgICAgICAgICAgICAgICAgICAgICAgICAgICAgICAgICAgICAg ICAgICAgICAgICAgICAgICAgICAgICAgICAgICAgICAgICAgICAgICANCjw/kWPxT0juiAFshrK3S8ut Wo6CCl1AAD8ao5PbLWSnDWcfmhCaMtsDYjWtEGDzBs zYGcz5MDilCN6WeWXeB2HjI3MxFGaaSF3ZUGKgINBihJAgNELaVIBxBrR0QCDdOSzbTF3EwOUmDChqUS YuDRScBN5INJPmC687hsInUO2YIr7DAxYdVF6nfg9ZNwUfTCDzDumJEwp7NJurHP2VlJHtrNRcRnUnMW VAUhKbE3uyb7UvKgDdTIABGPnvLF8Jm9BvrRHcTQd+ Qg3IKR7zk1XwZXgjVaEfME5shl0ATHmFKcAzZ4GvsTgbGRWchsQzSMfudwJggZZJmukhRYEjchAwtkhe Jb2gACGkRR58JvXfDvNfMXh6VmNzPW7jCHtzLC2YBFW0TUxeZPEzKZDzJ3hBLkSgUTfbQVIpmNmjOT7P NsRsB4IjmyBjbHQsWgVbEDTQJz2+DQplbmRvYmoNCj O5KVVzg2XuFXp0VC0PZOIjLTmgSH6JZXZshB9aOXdnDN3MIwYbIWEhSGEJRzEzY72dlMXvNQy0C6PdVa VkZGVkRmlsZXMgPDwvTmFtZXMgWyBdDQogID4+ID4+EUtfRK0IDDfzqrOaDKWvFt3GZNLlNYSbRL6oUV AiKZFuO5I8zJnvDPCUTbQdK5tfcwneCB7sDATsD132 aClkltZxAUOeRSLmXk7JRHTdHLB8WPAikWGkUwCmETWMWHziDL7YlDWiIYT1sZ4dSQbrFMKwJFXoG5kX ThNsdVssRI30aCzkitAcqGQlWTb+Nx1KQG6ml4XcWKi7gbQbDDyuYUM2KHsvPAVlTBDeQLIcPBU1CDB7 RILHTbExXVWuTBIeLIlzLIKtEXIdmg6ZRQFyJTCzSF FtXKObROAiYTCxGTqbZZAjSJZbSXEwSNFiTDTlJD0WTbUhYIIwPRFdZNtrCXRpKJIqfb2EEJFzAQQeAW g6GDYcCMZaGHWvXYujUWSgJBFhCXQ0DLNtEOJfZP2SZrDmNIGuHQCyDVQmEUPnHLFygp2YJADxMTSyKu XhNFWiJWOhIEFkVFgcODRcFHPtSEy9QDZqEVTdPL8K SgNiDUXmUVM5RSzfKOIlAAIlmx3ZCNVbAIKrSlD7MBHeNIVgVJPuQKqqOMQdHMYjTIW1BUJuTGDrAY8Z WfXmIBSjIWPjClCuDDHoMKPmmg9MFDOoNKKsDfL5EcVyHBTlWFHzSWczBNGbQYD8EjGyHXAnRJUdIP2R IbIwUPSmGIT0KVMnDJNmAKTgbk9KJNZoEGAtXhA6Bn LvREQmVQAvCFipSPTlGLP4BRG0BIXbITSaQH2JKmAkCTWaBVyyWNZeFLZnNAUgeb8HDRMiOAKbOHY5Wh QgOLNuCVIbCLvzNZFtFHO4EUKjAXVfDTTkKH9NYbCbHTPvCdScZTIlEQQiQKIofm2OHHHaFBMfQWEzLw FgCQZlNLSxREofLNVhJBSrHUDxFWWvHNCrMC9RNmKo GOwnUJELFow0NWaaZ9z6OQYuCW2LM3Axj0RgThPiDDKNNAdqBU6gwxIwZOSrOz0KD6cMOedmNzjdUXTr NIU2FsZmPceiZTCqZPV2AQc6EmNeYXTmEw0cUQRtYFE1PJQvUoHmGxGzSOLvJrD0NLXbTWF2WDF6MeEd JaVqGL7BId2DAtN7HAR5oKSnAh3SKuL8DGIIZwLeWY3NRJk= ID Date Data Source [id number] 11/12/2019 08:53:26 PM EDT [facility] Name Value Range Interpretation Code Description Data Jing rce(s) Supporting Document(s) Nursing Note [facility] BIOMYf6zCuTERaOf45/EZRuvMDGkg6AjTXxoYEl8YQjvILTeO0XnVDU5oN0uYMR6VYlORaBeElSxHYG8 lbm [file] W2IdQyOX5OQb9YQaS0JXL9eGUxRp2LNmN9JVtETfSsDK9WRSf= ID Date Data Source [id number] 11/12/2019 05:17:38 PM EDT [facility] Name Value Range Interpretation Code Description Data Jing rce(s) Supporting Document(s) Care Plan [facility] WLCKCf1xKmRZGxTc89/HFDvjNGKcf1FxIVjgTMw3ZJuzWMGnQ9CwAOR0oH6eIIF6XKdYCwLvOnNnHNM0 lbm [file] ogICAgICAgICAgICAgICAgICAgICAgICAgICAgICAgICAgICAgICAgICAgICAgICAgICAgICAgICAgIC AgICAgICAgICAgICAgICAgICAgICAgICAgICAgICAgICAgICAgICAgDQogICAgICAgICAgICAgICAgIC AgICAgICAgICAgICAgICAgICAgICAgICAgICAgICAg ICAgICAgICAgICAgICAgICAgICAgICAgICAgICAgICAgICAgICAgICAgICAgICAgICAgDQogICAgICAg ICAgICAgICAgICAgICAgICAgICAgICAgICAgICAgICAgICAgICAgICAgICAgICAgICAgICAgICAgICAg ICAgICAgICAgICAgICAgICAgICAgICAgICAgICAgIC AgDQogICAgICAgICAgICAgICAgICAgICAgICAgICAgICAgICAgICAgICAgICAgICAgICAgICAgICAgIC AgICAgICAgICAgICAgICAgICAgICAgICAgICAgICAgICAgICAgICAgICAgDQogICAgICAgICAgICAgIC AgICAgICAgICAgICAgICAgICAgICAgICAgICAgICAg ICAgICAgICAgICAgICAgICAgICAgICAgICAgICAgICAgICAgICAgICAgICAgICAgICAgICAgDQogICAg ICAgICAgICAgICAgICAgICAgICAgICAgICAgICAgICAgICAgICAgICAgICAgICAgICAgICAgICAgICAg ICAgICAgICAgICAgICAgICAgICAgICAgICAgICAgIC AgICAgDQogICAgICAgICAgICAgICAgICAgICAgICAgICAgICAgICAgICAgICAgICAgICAgICAgICAgIC AgICAgICAgICAgICAgICAgICAgICAgICAgICAgICAgICAgICAgICAgICAgICAgDQogICAgICAgICAgIC AgICAgICAgICAgICAgICAgICAgICAgICAgICAgICAg ICAgICAgICAgICAgICAgICAgICAgICAgICAgICAgICAgICAgICAgICAgICAgICAgICAgICAgICAgDQog ICAgICAgICAgICAgICAgICAgICAgICAgICAgICAgICAgICAgICAgICAgICAgICAgICAgICAgICAgICAg ICAgICAgICAgICAgICAgICAgICAgICAgICAgICAgIC AgICAgICAgDQogICAgICAgICAgICAgICAgICAgICAgICAgICAgICAgICAgICAgICAgICAgICAgICAgIC UgTQVmQOYtMXUrRMLeXUGeCZGyJLUpOIBrNKFrSWRbQAPbZXBbYBVjIDCoFTKgNSTyZKw4U7mhQQQzNH GuNR5pXLd2Pr7+SGcDRuRwFQK8obIzwV4GVF3wu9Fs ODwhONTzc0YlRAc7FB0EYAPvXBknDJ0MSPhlfw8YVPZkVPAxlQXEp8nlJjMoFOH2ZBJrMbciYQ2FXRDq Q6iletZbEJXzESDDHA1VPqPiD1EwpH12WQMBGe6+ACzmtuHePozMVyYcBTRbp3FxNFw3UU7GNCPgEfzv a4EaVzPkGAWZFVbyMN4CUPW0MFPcHUElTt2KYENzL8 20ukSyWP0HMk8IHmNvGY2leo5DQuRkJETqEblSCwl3DSxlMK7JzPLmPCoKSHIcSTEdMY2xQgghFJOzfc EDPzIvyAPrOUPHGGN7HZhjPB4iMOSmLKM4BcGfCMQMAB6NMRXtBQYuqJJkWUOfSMDVEM7VRAvmWHQ6Bn ecelIpqHUyLUjtVG6ZWNLvgsJnDbIpZPEKCFp+Pg0K AP5bz5GxXMraJCHuWE2pby8UEArCAvBgM6U7lJKdX9C0HZvyPd2SBCXgELPwFrFkXWMJRPbmIM2XBO0a qcZ5WZ4YcULxPLDcSMNgjCGnSPn3P91qrBOnLKllFM6JAGU+Rambo+Oz8RYMFmQVFrLDPvWbRdXDILTiBv H1NzT2KIk3YdB6WmQY65hCofpqAlRWnpPS7ANW6iGC VdFKJFHW7BbREtnP8qtrYdHrOmLKLLAlGuJ83cwQNsGSQoUNMiTGXfUv3FILUyL2WrnkGalEnagjToBW UlNFUORF9KZAurzjKzlHGwnIgfYA43hUpqOK1WQl2NUtIxSG5hha0RiUFuIo3WEEDyWV7XOTKbICIwFZ GpKPC9EGOkAlDxOPlrMPPmKLHqWZD5XDBrMRMaSU7N WzAhKCGwOMv5QrTbFYQdYNIjtd5KQOTfFDRvTLZfPjKyGWIaEXZxBAipJAWzQMPnAGW1OFIlKLKjSQ6T WvLbXXZqGNU6SBWxIVQpOXDywi0IJMTfRWNlOVEqTXZnAOEvVODxGRlgHPHmLPLyQGX4LWSxPJZgCO7Y ExAhHOCtLRX2OfozWDMyETEkwn3VVAWsSXEkDxf2Oj HeXTDmFVJdSRdeNBCoUXNuWUDlHSZdAWKgYO5TBgLgBDHiDXGxPWbxTEDiZDPjzs7ZYTOaKDAkQOD2FD YdZQAtCSJoRMvdZDLlFXJ6NaJ3QAGsPFApRD2RDzSkHSWyIVD6KBWgHDQrDZKvcx6UTXBqXFYyRfO8AH GpIAZaCLCkEXwzIOWsFGN7PHN9JALxREYzUW7NQxFd FESmWUz6QGReIWIcCVKvlt9QZOVoYNGyPPY4HbGkAFLzGCArCSngQUMlMSX6Qhr3AUYaFDSeSA6WJmEc VPDgEFe0PLEpWLLqAVVool5NZTQaDDYbBJL8DxCvMEFtAEGzOWzfLHJlSLQdJnI9NFKyNEOhTY4FQvQn ZEAcDwR5FbPrAJFoZNAngf1JLJPfDMXpNJkbOMPqLT StRXFcGZe4hyKshXNlYQl6YL8OF8BswdCoLnZNYk4Mp491FPZ2NHCwUt0NK5tyHd0lABIlHSSEVs6DCA t8XHV6BmB9TVE4FZOkZXVwPpX3CgMyWQQ8OPH6IoP9Jyc+ZXxhCWcdCzsxOIqsOPLzYBH4BEddVGGfTw CwXmg6JeCrLR6xXUHPSd0+JLudiWUrxVswALMZSbXdQPA0PYlvEGPNBk2H ID Date Data Source [id number] 11/12/2019 03:03:53 PM EDT [facility] Name Value Range Interpretation Code Description Data Jing rce(s) Supporting Document(s) Progress Notes [facility] LABPJu1nZtCCZcNh75/JDPffNLIzb6ZxKPawDFl8PQynGAByP3LlBSY2lM7sACS8BUmVJzQzGfBrXMT9 lbm [file] ICAgICAgICAgICAgICAgICAgICAgICAgICAgICAgIC AhIKEfCKIcVILnZCCpZTClDDEeFUXaIHZfYSIeHKMfDZ3NWHQlADEkQNObIBNeENHgIOYmXRYfTBZkTJ AgICAgICAgICAgICAgICAgICAgICAgICAgICAgICAgICAgICAgICAgICAgICAgICAgICAgICAgICAgIC JtEWXkXPTpSXGwZUMcMM0PRGZzSYHpXLGgPFTcIAJg ICAgICAgICAgICAgICAgICAgICAgICAgICAgICAgICAgICAgICAgICAgICAgICAgICAgICAgICAgICAg PHIvEEOsRWQvXRNsTNNfHUKqUYNaPUXdOX4HMPXtYJHcYBTzIGXiEHEwOLWbKOKzABEqZSYrBSQhYRDg ICAgICAgICAgICAgICAgICAgICAgICAgICAgICAgIC OqOMQxCFNoQMQuYVJcMVOdBZSmKENfVSXzQFBgLBTgYGMxEP8WAZYaDYAjEBSbNMBoMOVvAWUcVVNmZW AgICAgICAgICAgICAgICAgICAgICAgICAgICAgICAgICAgICAgICAgICAgICAgICAgICAgICAgICAgIC HkEABoMZJbFLOdEVBsEDXtXU4EMXVmDSXnZSOjGCWt ICAgICAgICAgICAgICAgICAgICAgICAgICAgICAgICAgICAgICAgICAgICAgICAgICAgICAgICAgICAg LKSfGLFwMFDfSXItMUOfJCAdDGAkTGIvNSEbUM3KBBKePASmNYFsCRWaKXRxZBHpFHKkEQUgPHHgIFDu ICAgICAgICAgICAgICAgICAgICAgICAgICAgICAgIC XeSMAkVVBmMQFlCUDeGIRkNQNoVNStCGGdWVLyNOGdVRXvMOGiAC0MRXRsHFAmAUFwHEFdMVSdWCKtBL AgICAgICAgICAgICAgICAgICAgICAgICAgICAgICAgICAgICAgICAgICAgICAgICAgICAgICAgICAgIC RdFIVaAYFpRGVqINTvOCNiICUvNX9QOUVgJSRhYVGq ICAgICAgICAgICAgICAgICAgICAgICAgICAgICAgICAgICAgICAgICAgICAgICAgICAgICAgICAgICAg ZMFeVWZkRKUhUGPyHKWgUAUjHHZyVQNeWIYzPKMiLE5MVELoDCHnOUCfRFGqSNEsNEObQLUyZEDhTMDe ICAgICAgICAgICAgICAgICAgICAgICAgICAgICAgIC IyXIVyDNPyZVGqVAZoIGPdUYMqHHMmNUZcCSIyQVItDUGeWKTtHPCwIU4HWU24lUBby0J1HBFcUK7bal c/Do0NDEfutbLclLOcNO3XWnLyCR9wzn1LLaTdPV6llu6ZNGaSPuQzI0T5zZSfQCVsFACXWqPoG33oEG rnMk16USddNLUwNkKkNQs4Au2GAbXqO2kbRZBfPrS4 RUQgIvW0KORlItH5ITCdMrCxKFisDX0Gl2YvcUUmIHn+Jd2DDU7kx7QqBMoxIgPvNL4nlu1PWHmYMoLs Q3AgxwJ5WOLcDJMzHk9DAPYsTTMkgSVyUyQuEDUOQsIlI9JfwI74CWCWUf8+DQplbmRvYmoNCjMzIDAg f8UnXHb4WZ7OHTXrYQp8xGReIAVwQ8Eqe3NfDh54LM QxCiesRWv9RoR6pEEVWHOaOVMxkQLdNDL9MSftYN7gFWCiLRKcKyPfBQVMOG1KXNDcTEIxrVKgQVUqRU MDPI5NJPklGUH0XoooioUgkBPeZMqrOO5YDRAvavBrHvDoYEJCBRa+Nf3QVJ9ui0JlFXjkVVXrFH4fmr 7GRPhFQxXiT3W7uCMjV5H2SKxyLq7JZHLxSUPxMjCh AENDSFabXN4WFO2gfqV2FM6WqWEhPFBrGPDjlMZlGOh8E88akLXzZUlnKK1JFDY+Rambo+Xr0JIDDyBARd YYDaMwZaWUIXLnVrP6FkX9OAz0WsW5FhJC97xMsoweIeDZxmJR6TJC2bCRHbDRUNAY2YaGPtmE1hddLd NoDnVFYXThHxU15ouHOtFGBeGSQdNZBzDx8CWQTkU2 IowrWsuAtembHkHTUcIVXLXC4NLAuediXlyVQujZqhYB86qTipSM2JSj3KDaDcQC7gqr0HgPJcSv5YDV BvTI5FRRFvPTFkDOEiVXO9UFPtXeCaDNoaGRIgGDHwQIS3PIGyICZdUP1SDpVvJTNnWwFbBCKxJGQcJY Bjcs8IPEIyAPVmJKDfMjHjEVPqTEWoGWrlIEGbSKAi CRE8UHFcPKQbEY4HQaXxVOTiGRRgGxAkHBGxPZGalu7CFBUqWQOeDwVxUXVwDIAnHDBtJXibNZRiGOF1 UTjaNNUzAFNySN5LGfWmHEXdNYZ3CYLqAASpAHYyre9IYVMxRLImIeI6ZUVwRFKhXMErHIkzUQJyFIF8 HFU4GWAxIZEbUO3JAwLdCEFyQVu1VQovNHRlXPKuuq 6PKSDuRMCxVhFfGKDoHEGjZTLlOXvpTOWyFJZ7Uoa6SYFjUJYlBD4QQwLrAULeUGc3TKfeCWGlZDZmdp 6VLABpDQGsOKv5CBBvNJYaMHMjGUpjABZfTLH0JWT3PIZqCQLaRJ0ULgRkNKVmTbN2DPyiNPBuFAUmmt 0KMDAwMDAyMTgwMyAwMDAwMCBuDQowMDAwMDIyMDEy TZCvTRNeKB2KViPvJZXxSuWiWBWcTAYmVZSlhb7XUBSlZGEiRuN1BULdRZGgVXZzAOcpBWGsGVUgMfOh OOZrCETvJO9DSaTeIDCqMgQ0WdSgUTZlXFQhoq9CBXDpGHNfMgogBPIyKEUyZPOiRYqlCFPdELA5DvIp XPHtKGBuKM3AYqZmOYTqAwJ6SymmCTKmMDRmmw0TBO VbKKPrAIRqSJZnQKFlPJApFLqyNVWhFII0NSTnRXMrIFPwZZ0GJkGpLGJoGpMaMYPmRUOvNAVabf3DPN XbJLMuSnAjCENcYGKsIXYaIDaaYLHvQYQ2UxxlUQWnCOHzDI0VYaGmZNStZhuaSxTjABBtQMBhpi9DYP CmEEGnDGI4WURpXTTgAEVqEFdcLFVqSNI7QEKqCSRp CCBnKG7BMyLmFJdfNHAMKdn6SQtpK0h1LJUbCJ0DM7Vmc4QeZxJaSCUICYgrRR5kdkMvRAKoXq8ZI2gS PrwyONLfD3Z5EmM0XWW2MbH6WRLgGfK1R8V5URR4UiG4TL6eJNJfNhVbIhpnSHyxNot7ZuXtSmA6IqN1 XsLsNRL4FWMeGzRgAM2UTj8ZUeE8QYR4qEBtPd3TEqf3SVVGXfTuVS5NCMv= ID Date Data Source [id number] 11/12/2019 02:37:12 PM EDT [facility] Name Value Range Interpretation Code Description Data Jing rce(s) Supporting Document(s) Progress Notes [facility] DRPWWh5kKhRIVuDh31/DSHwsUHYzt0XhFOgwHHt0PAykYXBaW0BaWJE8yO4rECO5SUmYVdNxPpAyVIV9 lbm [file] AgICAgICAgICAgICAgICAgICAgICAgICAgICAgICAgICAgICAgICAgICAgICAgICAgICAgICAgICAgIC AgICAgICAgICAgICAgICAgICAgICAgICAgICAgICAg JIXbTROnZH1YTUQkZCIhSNWbYCUrOMYzUKYlEXOgSASvCJVdLGGcEEJdLJOsAWKjGADeQSKfTOWzCPGi OOAaNNOoWIAhXYYcREPaCOPvXAZeSMPsOBGoTUDmSFRiOIDhRZJsEDMeWGUwNJArHC3TMMKiBEUxJUFn ICAgICAgICAgICAgICAgICAgICAgICAgICAgICAgIC AgICAgICAgICAgICAgICAgICAgICAgICAgICAgICAgICAgICAgICAgICAgICAgICAgICAgICAgICAgIA 0KICAgICAgICAgICAgICAgICAgICAgICAgICAgICAgICAgICAgICAgICAgICAgICAgICAgICAgICAgIC AgICAgICAgICAgICAgICAgICAgICAgICAgICAgICAg ZSMgIPDxUJPuWC9LHDMaPSPvWOAyQYCsYRLtBKGpURSsGCXlNYNrMMDjVKXnNVPtHLBlMDVgOYJnJFJl BDHuXSSlGUFiAFHnXPZqFRUsGOOyQUCpRHYwVBOkVKGpHOMmQKMtGOVhVCAuORWnZQQkQR7QKPWmPYUe ICAgICAgICAgICAgICAgICAgICAgICAgICAgICAgIC AgICAgICAgICAgICAgICAgICAgICAgICAgICAgICAgICAgICAgICAgICAgICAgICAgICAgICAgICAgIC FzGH4UQFSwCOSiORXwESWcNKDzQJWwQPLcRGJaLEPoUDVySNEmXOLsJHWkIELtIHFaGACdEPYcQZGhSM AgICAgICAgICAgICAgICAgICAgICAgICAgICAgICAg XQGtOBUxOPFzGDFaTD3AXEHuHETtSYGvFALhGUWjPZDaERFjLGNdDPXxIRCrVWZwBZTzRSOmTJWiXDIn NYQtHCIsXOFoSSWtZLPoRABnOTYfMZFwAXAcHREdFYAhSWFeHYZlTEPzZXEbKSUiBFZlJZOkCT6MQZZn ICAgICAgICAgICAgICAgICAgICAgICAgICAgICAgIC AgICAgICAgICAgICAgICAgICAgICAgICAgICAgICAgICAgICAgICAgICAgICAgICAgICAgICAgICAgIC VeVDVoAS0HQEHnANQbOFDpQSEwAQOuTCAzEWCjNTFrFUEyQTWwKWZkJBQzEALxALWxWMJbYKZfDWBvJZ AgICAgICAgICAgICAgICAgICAgICAgICAgICAgICAg MIZeKSFrRVTrGCUmBVBpFB0XTI31dBUxj0I1TJKmMD2gpui/Sh0QYPeoerZyxDBkGB6QYeXoCA3grk6E BwNoUX1vmt7PLMtDOnWzZ0W7sXPcFIPwMLQJXlOaT28qPAcoEd16XOjmSZQwCeRpWOa4Va3YNyTgI7my YCMcKcV7LTSgKaOeOBphEZ6Bh7HfuNAuDLm+Pg0KZW 9zf6BhNCmzBKMyCX3snw9WEYlCZdRrS4UuysL0ZZD7KXIcBf3IHRSkTYUgjLFwVyDwKOCFCgPoM2VorB 80NRJTKm6+CFwpctUtHgoVMyJ4ERMsy2FjXUi2GN6OLKXlZCa2uNWaCPKgC2Kwe1TwRs44KFEsYwwbUP u4OjE3lNDQOUDzHKGrtHFpJXV8YUkqPM8ySGMrYKMv CiN6LKKLSV1EEZMkTVHwcISdNHDyUWQCCG2PZUsuNXJ2DvpmmiUwtJWxBGxsBN5LCOEwpnPbLkUeEQCT DQo+Qc8IXD1jc0YiVPqrIkLsPM7odi1BWUyNGnXpR7I9pLWrF7Y5KHgzWz1GPPTkDTCbOgPpSJWKGNut IQ2WIR0gkdF2SP1WpWPtTYWzNDMtdIUfSUu3W42dlR NpITbhOP9LYUW+Rambo+Il6EWZAuEXDbPDIuSeNxLLYTBhDfX9TjV1ZKl7SxH7WoUJ06kQebxwQzGSbiXX 2DMI5rAKPgTBUCKK0FqVRvdG8hkbCmNGJqRXGRCjZaY55tyKUeTLLkKJG2HFYoWv2ADJJeT5XfchBgzI geabYjYWIyNWBAFT1GXNpdrwXmpVAdeYlxZO03oEot KW4CTy7OKsDpUY2pyd5ZiTBdNt5WQDGwBV7COKGqWXDiPDWlXFF9UZXbBzNfSDmySHZmRSCdSEA2FWKn MARsEL5DCaAwWGTnWjIeNhXyZKNiYDIrzp8IMJRnELQpTpt1RUKwZKKcEIZxFUddRPTqSDLvYNO7CMCo TOMgEP9EUvLdYKHuVKKsFNRtFHVeHGIfas4OCTAiUJ XoGzC0QOFfEBAhVYJjPMmjZKCiQUGnCYK7UOPgZQFrWG2DFkPjAPPyMMA7AUfqVTGyJIYfog1JGAHwTL TzUkdjTwShJRPtZMSeDHpwIWCkHWJ5GpMxVKNzNJRhGZ8WZpShTUQkYBL0JLuoLIBpEKKvro5WADPlCM PfCLS0CQCeVQRqPJUrRCbmYRMwYAK9RQuiMJBmGUIi DG7IXwXlREIiMSa2SZNtJIZbLMSqzg0MQSNaCYJvGSFlDWFzANKrUBDvTHexMIYmGNF1UeT1SONtEJNa WD0NVjYgILKwPVw4KSYfPFZuFPKvfq3CKUClPUKuNXJ9JQMpYUMbANJzVWosUYLiVVU7FTJ0NCRfGXXf VO9GKbAiRSUrEVh4CPEqGVDvLHJpfd8YVTWcCKGcFF S5HTOgHVHxVZQiCDuyTTIhYVNaFWIgABAuFCUqVS7AUcWiHLWiZkPyQUUiNEQbYGObba3VCBWnWXDyKY L7GKInOOAaBUZuIBteFINvDRPePBvlBANjIXBqAJ3DKpUdPZDiYqM4IBYpYCNaPNZcap8RJFFdAXAbIc FjEfCwNKXwSOQzTCh4jgYbrWShZAn2PX4ZP3LfvvVd YhvGPg9Pf290RDY1WFQtZb8KW6fvOq1dZZMsLKDKRk5CFHm5HdYbTvhwMWZ1FbwnEKSnRjs8RCDhIzO3 PquaITB8OPq+TVgbRSC4X9ZzLbojNoB9DUBeLyx2ZFMzGWrzFwSeNzRlDN8hYRGYQr9+DQpzdGFydHhy ASSHDdKfFyP7GKdpSHGNIy1P ID Date Data Source [id number] 11/12/2019 09:19:00 AM EDT [facility] Name Value Range Interpretation Code Description Data Jing rce(s) Supporting Document(s) [place] 0.70 mEq/L 0.6-1.2 Normal (applies to non-numeric resul ts) [facility] The above 1 analytes were performed by [facility] [id number], ,[place] [address] ID Date Data Source [id number] 11/12/2019 09:13:00 AM EDT [facility] Name Value Range Interpretation Code Description Data Jing rce(s) Supporting Document(s) Blood Urea Nitrogen 17 mg/dl 7-18 Normal (applies to non-nume lorenza results) [facility] Creatinine 1.03 mg/dl 0.67-1.17 Normal (applies to non-numeric resul ts) [facility] N-Acetylcysteine (NAC) and Metamizole conteh ve the potential to falselydepress Creatinine results. Baseline values before medication adminstration are recommended. Patients undergoing treatment with phenindione will have falselydepressed results. Patients on phenindione therapy should be tested with an alternativeCREA method.Toxic levels of acetaminophen may lead to falsely depressed results forpatient samples. Glomerular Filtration Rate 77.00 mL/min/1.73m2 [facility] GFR Reference Ranges:Normal Function or Mild Renal [...] of Health and the National KidneyFoundation. The [place] method used in calculating this result is traceable to IDMS standards. Glucose 85 mg/dl 70-110 Normal (applies to non-numeric resul ts) [facility] Sulfasalazine has the potential to false ly depress Glucose results. Sulfapyridine has the potential to falsely elevate Glucose results. Baseline values before medication administration are recommended. Calcium 8.8 mg/dl 8.5-10.1 Normal (applies to non-numeric resul ts) [facility] Sodium 141 mEq/L 136-145 Normal (applies to non-numeric resul ts) [facility] Potassium 4.3 mEq/L 3.5-5.1 Normal (applies to non-numeric resul ts) [facility] Chloride 111.0 mEq/L 98.0-107.0 Above high normal [facility] Anion Gap 7.3 [facility] Carbon Dioxide 27.0 mMol/L 21.0-32.0 Normal (applies to non-numeric results) [facility] The above 10 analytes were performed by [facility] [id number], ,[place] [address] ID Date Data Source [id number] 11/12/2019 08:05:44 AM EDT [facility] Name Value Range Interpretation Code Description Data Jing rce(s) Supporting Document(s) Treatment Plan [facility] HDDVNy5uEtTHTvPn87/WFCorUKPni0McGOpwTJi0GVuwIRXzA2PiPPY5cB9sEID8VIyHKaOcQzCbZRR9 lbm OjMhlWNfJhCOJaIwaACyDiIZaiRinzfVCmQP7NfSY9MGLzL28wDIImLDVwI3SyEJYqKrS+Of3AAKEonS NeHX2QKbgL9A2rr1t1Bn+/ytny1TD3dwEF4FqtkbCHpH5SvguB4oALhO8xTd2wZvo1PajY23qrZALUb5 FjQZipcKapQmOGNY7DH+wuVhRj+t+/5QjZHu5g0i/d g5Hk4ORk/fUvbH+yE9k20i0EQ6EOdNy4nT3O/zndyc8AdS1wViMHvsoXRdqFDGhR8QPnrnNME+bslr21 OX/ChZlfJF4/kJwlvdlYrdM98SdJ6rBHRg17YFfdKNFFa8+Te8YzshFruAsLSwv1oMN5bqHQahFei8VL MwhgKb1kabykEEAZ+DcHdbZFfxi7Hs/Romn4mNMBgt jvm7yNvpwtuys+5XpWpLXdeZL49wB+XHK7uHYxCjBKuVVwcIqysUuciVsUKxgD1t3ut86W9FIFz/RVRh UvhHgLmdCUIXE13EYs0Hi4gHm0SaQmQMrsZaU8jta1H2Og4cBgP1C4AP2Q42g7MS64aYSif4dqlzlQQf uEDK37yHa0tAFvX2uyqbUe4bVBX1HPXFr5bRyIJvUa TTBxaSaD7IRZLz0QqQnfKu8xHD80T4RqFMhtkito3sVcD9tXL9UvbqgSE8n7GUPbLHa0aX80rnQ+K9ab nClatDMpF5VT9rxk/4CW35fxG6fg02qn3RiiFQXAasSeDHxEPPwOpSJCngP6N3qFO1qvQ74rAF/eEur/ dVlgJIR/ESlYx5UMzmcL24rfiTPhXTIPQBJYnGQ4iT dDGJ+QzYDn6cLO9C4GveFITZks6c5gE/Ynk8TmQbPa0cneClWKHpgZgh9eVL+IBEnW3v96Bj/plate washer/y/M [file] ID Date Data Source [id number] 11/12/2019 06:12:12 AM EDT [facility] Name Value Range Interpretation Code Description Data Jing rce(s) Supporting Document(s) Nursing Note [facility] YHRICj9nXfNDAaTe10/NHOsgXKLvc3KkMPtfIIc7PQauTSMzL9FsYNQ8vF6vUEP2BDbJLkRyQiPgIYT4 lbm [file] ID Date Data Source [id number] 11/11/2019 11:19:28 PM EDT [facility] Name Value Range Interpretation Code Description Data Jing rce(s) Supporting Document(s) Nursing Note [facility] ZMFQQj1hGbUXUiXw46/DZVqjTOObo6NjUMraYHt9DJomHXBqX4SoFAW2zD0zJIT7RKkAYbZmRkQmZXT9 lbm TbFklJNuGvHKKkMqcNMjBqNNpzTmnupUSkKH3SmGO7YSMuQ44hGHMmFBEqQ0IrKYv7GB4+AXboGJI6ai VefT5XESXZSM3e4dMDv1igr0vIZbck46r/AwCQGZZOKLZmKlUAS2cmNSZ/EL4Q960ndE1s66rCkqsz2o skmfbf72u+N5cUXZ8k2TZzKEN0j/cqNYPxAot [file] G7H1NgS9YlW5AEJ7UyM+VR2iZPv+Pc5Ou1GlmkF3uiBlBCmoYOt7Ft2KHTBUI9ZIGi== ID Date Data Source [id number] 11/11/2019 10:21:55 PM EDT [facility] Name Value Range Interpretation Code Description Data Jing rce(s) Supporting Document(s) Care Plan [facility] FVHNSl4oQrJRJdCu80/QAHwqHWBzk8KgMWhuWWo3ZWgaJHWkC5XvNXJ7uB1mZKG7IZvDVdNqLwDqBJS5 lbm [file] ID Date Data Source [id number] 11/11/2019 10:32:14 AM EDT [facility] Name Value Range Interpretation Code Description Data Jing rce(s) Supporting Document(s) Care Plan [facility] TYGJAm2fTpAOPvCf13/VXIotBLPcz2RhVGckEPt5SOlxBBTxR0BlYXY5uR7zVHP6SAhLNeIaKdArRLL2 lbm [file] KUk6CK7UJMV7DODxXd4KVYQnUE7NDLWrUBQmDHMZLp DiJHKjOdCkOFIeLARQSNzdLPLwP5QpZXM7SVRjBj6+XDocVC1CF7GeBCI9BPn9OJ1+JXtnSZ0HiMCJP8 BttWRbOQnvI1OSCN1KEIK8DZ5FkRTeXR3YqVJAV2LchKVrRv9rPDDfa0KsEr0sQ4GCKBOXWTHlJFlcDK jbGCMcEDu5Y8X6BXFaB1GAF008qJFvpWj9Gu9rO5JU KQzQVjAcGPgvEVhoOTPfBQc5S3U0UHAyZ6AHT4XpNwYgdlElP0Y+HfUoMHYATY1LBLTTVIp2K2J1qVJy K0X1yZeGoTG3WX2OMV5ApYNunXCnm73+HiUYJnOfU4TMA2ZINN8CWVr2O0C2bFVrU3B7vJmRaYJ6BK4B KH1WmMsdaFPmFw3oJKszGTE+Kk1KDy5UWkUhQC4jpd 0MRuJaWJPdJphLEgf5L3rjtgl7zOMdXrH1U1O7CzW4hYSuLD2RP6A2zQYqRQX2XYSfgZF+Xw2Bi6EjZO LtBJl5M3leZFXqBHKrOkFhcF61W++7qjoidLJ1Q3s8HUESyBAdtUcVxnBdP6iYHEC1f6A1NDq/Pg0KIC U4aRt3sWGuKKEyOTm4oT3ydOr9HrXoUU16EFCjKOlu qB8yMst6W4Buy1CxSw0lVy8zyMLpLv0BZdIiVQL8rgNuWcRQJsW5gQyzngggENS0C4m5qCJ9Cn54l8eg nyCgu3McVhV0BUuwFGXeNmHbmkEjBTU0gaFnvG6akuUbBl8ZDQGgVScznmRsTwTCTp9YQuHcJK07Ppkn kB3onUO+DQogICAgICAgICAgICAgICAgICAgICAgIC AgICAgICAgICAgICAgICAgICAgICAgICAgICAgICAgICAgICAgICAgICAgICAgICAgICAgICAgICAgIC AgICAgICAgICAgICAgICAgDQogICAgICAgICAgICAgICAgICAgICAgICAgICAgICAgICAgICAgICAgIC AgICAgICAgICAgICAgICAgICAgICAgICAgICAgICAg ICAgICAgICAgICAgICAgICAgICAgICAgICAgDQogICAgICAgICAgICAgICAgICAgICAgICAgICAgICAg ICAgICAgICAgICAgICAgICAgICAgICAgICAgICAgICAgICAgICAgICAgICAgICAgICAgICAgICAgICAg ICAgICAgICAgDQogICAgICAgICAgICAgICAgICAgIC AgICAgICAgICAgICAgICAgICAgICAgICAgICAgICAgICAgICAgICAgICAgICAgICAgICAgICAgICAgIC AgICAgICAgICAgICAgICAgICAgDQogICAgICAgICAgICAgICAgICAgICAgICAgICAgICAgICAgICAgIC AgICAgICAgICAgICAgICAgICAgICAgICAgICAgICAg ICAgICAgICAgICAgICAgICAgICAgICAgICAgICAgDQogICAgICAgICAgICAgICAgICAgICAgICAgICAg ICAgICAgICAgICAgICAgICAgICAgICAgICAgICAgICAgICAgICAgICAgICAgICAgICAgICAgICAgICAg ICAgICAgICAgICAgDQogICAgICAgICAgICAgICAgIC AgICAgICAgICAgICAgICAgICAgICAgICAgICAgICAgICAgICAgICAgICAgICAgICAgICAgICAgICAgIC AgICAgICAgICAgICAgICAgICAgICAgDQogICAgICAgICAgICAgICAgICAgICAgICAgICAgICAgICAgIC AgICAgICAgICAgICAgICAgICAgICAgICAgICAgICAg ICAgICAgICAgICAgICAgICAgICAgICAgICAgICAgICAgDQogICAgICAgICAgICAgICAgICAgICAgICAg ICAgICAgICAgICAgICAgICAgICAgICAgICAgICAgICAgICAgICAgICAgICAgICAgICAgICAgICAgICAg ICAgICAgICAgICAgICAgDQogICAgICAgICAgICAgIC AgICAgICAgICAgICAgICAgICAgICAgICAgICAgICAgICAgICAgICAgICAgICAgICAgICAgICAgICAgIC AdRNGhQSXoRSQmQKStHJBbJJMwBXVyDSFtWYk3X2uuCURiTZFiBM1bDJf0Hn1+PAjRAuSiUNU5uiNvqQ 1ZWN1kz5CeUCpeEJJjm5SaGDm4EO2WDHLgAXicLN9F SYkopp4MIVAxKUHygJUFy8srLpUeMNQ5XJBnWiljTZ2HOZOdG1kaslIyXXFcVACKPX2JFgYjC8EjiK86 IDENCj4+CTpkqzMmWyoMQvNqGDDbp5XpKKv4YT7FNJKiIezvs9YkRnKwJKEFPKecHU7MQNT8WYTlYSUm Oc8JVRYqJ993luNiIM6RWf2EXrGeMO5ycl8JHzNjIT HwNgzHMkm3DOwqEB1IlMSkRHyHAVUySFBbNF1oXfkcO5hwtCN1a2YtFKLiCUAvsjZcWH7lUTVFUOS7SD suTE1mCEFkKUKmFrUrTMMQDD5RRZSgBWRysCAjVTQsFOTXVI4WQCbsFVB9DyrxouDaoUQnPGjgRY0YAX JlbnQgMjIgMCBSDQo+Ro0YVH4ef0SkQKitGCMqMR7s sc7FPSdFVwDvE9Q7cZVgF1L1ZDohAz9VPJBbKGUbEwPfGHAGCYjwLO7FQA9pqoR9NK5SdERjJGTmARHq vDVyADy1C07isXFnUFepOU7QXVY+Rambo+Fr4JMDEbTBHiOAEcOzLfUTOCZoZhC4VcL4MFu1SoP9LgSS61 iKdiltAiHGedWD6PHR8sWPGzAQNHLU5VrSMiwH0cql UbWuYuZOCBQzJcH85lgWOxGTOmOVMiPBPgPt5LKBNjK1VsccFyoXyivkHbMMPhIHMDOR0ZIXxmnsMdmZ RahPbnXZ89sEznFI9RKv9NTpScGS1tfi9AeWKmQs8YXIVdGJ0KZKFzOFClTFFpCTV7GBTtIzNxKGqeZN AuHHDgJHP8XOSyEZKpBR5HAxUfWZBaNNb6BDLqWYEu VFOmyf5NAFTyGCHqBNU2FTRqXFOwPFAuZIbgWFBqQMKxRQV6MACbLDDlLW1QUwSyXIKqTES7PMOvUQOl VOAtvl6ONACsRLTiDoM9MBSmYVMzFWUfBUkiTOUcTVCvBHF7RTLqSXYaWN1FIcJqOOPwAVMrXHrxFUGg SHDibp2OJXHdYWCfXtMeJGJyIOExCMLyYPuqZVPsGM M9BIruGUGoKTBwKN8JOyReHNKdNPV3ZBWlHVYeEIZyor5STCEcLVUpTGq4NxVqNSVpJYIpSQnmAFXjDT N0FkQfJJYbIXYgSW4WYqIxKYPeLVp2SadiHVXaWNOfsn3YOKFwDKXnSer4OoVpGHMpXQZrQHmeTGTgJL U8UDa9EICmKCSaAN0TXxXkIZArKDdbRiScFOJxRCQu ts2TPKEgADGfZGF1VWCiJVNzYQMjPInaGLDxHBA5WnH9XAUaLHVtST9FDtJzEDQcCGw3JfGuEUYyMCFu cq8AGMPmIKTyKFd2AUCyEQOrKYSdSAyxIJHhKFLrTdl6NAAsYXNeSY2MCcBoEMXeHoTeBRlcSIMuNSVm cr4ZSAAyLGFkZAUpJdGsVOReBUZuSDf7jyGhhIBgJP u9PA8JO9YaujYpYgXOZi0Av685NBG6FMBvSy9XS4ifTi4eVCXuWGWPVg5VYPz4UpRnYNT4MFS5SoO9LD n3YHJzGhN9CKNeVMzhLCDwXAG+NUfgNOYaMIL6Gqc2CtwkVGc5COOiGpd0QhQiL9NpK9EhZs9oHMHQNl 4+EYdoyRDnxMspOGGYEyCaPnFaDBzlRDEAXs0X ID Date Data Source [id number] 11/11/2019 05:10:40 AM EDT [facility] Name Value Range Interpretation Code Description Data Jing rce(s) Supporting Document(s) Nursing Note [facility] TPGDSe7tKbUOWpWw97/OXZyyQZQvx9KeBZtfBLx6SGlkFBGmP6YfKJK4jA2lETC5EYxOYbOkCjUiTCR7 lbm [file] A8CqOjWfWpDRYsVYLkSOLrAXclMXZ+VR9gHDj+Za9Uk0UyfpU7jhBmBOqkWJyyVI3ZQEPOY3SVQk== ID Date Data Source [id number] 11/11/2019 12:27:52 AM EDT [facility] Name Value Range Interpretation Code Description Data Jing rce(s) Supporting Document(s) Nursing Note [facility] MJOTGm6pDoUYSzEi51/JQLlzZVHxr0VmBMaqSYx3YZqcSDLyQ0ShXUS7iL1vRLB3JGpYYfSvKeScYCQ6 lbm [file] JiMxLAT9YlloD8DcZMV1NPI+KC7iDMy+Yx8Lz3CduiR2joKjONsoGDb3Lt0EHCWFE1LMLj== ID Date Data Source [id number] 11/11/2019 12:06:56 AM EDT [facility] Name Value Range Interpretation Code Description Data Jing rce(s) Supporting Document(s) Care Plan [facility] LGXGYj6jFvXKSbFq99/YFZhkSDDxs0JlKBkiAHt1PDsaDEOhM7SiVTR9aU2uSZU1LVmHRaXiBgGdNQX9 lbm [file] ICAgICAgICAgICAgICAgICAgICAgICAgICAgICAgICAgICAgICAgICAgICAgICAgICAgDQogICAgICAg ICAgICAgICAgICAgICAgICAgICAgICAgICAgICAgIC AgICAgICAgICAgICAgICAgICAgICAgICAgICAgICAgICAgICAgICAgICAgICAgICAgICAgICAgICAgIC AgDQogICAgICAgICAgICAgICAgICAgICAgICAgICAgICAgICAgICAgICAgICAgICAgICAgICAgICAgIC AgICAgICAgICAgICAgICAgICAgICAgICAgICAgICAg ICAgICAgICAgICAgDQogICAgICAgICAgICAgICAgICAgICAgICAgICAgICAgICAgICAgICAgICAgICAg ICAgICAgICAgICAgICAgICAgICAgICAgICAgICAgICAgICAgICAgICAgICAgICAgICAgICAgDQogICAg ICAgICAgICAgICAgICAgICAgICAgICAgICAgICAgIC AgICAgICAgICAgICAgICAgICAgICAgICAgICAgICAgICAgICAgICAgICAgICAgICAgICAgICAgICAgIC AgICAgDQogICAgICAgICAgICAgICAgICAgICAgICAgICAgICAgICAgICAgICAgICAgICAgICAgICAgIC AgICAgICAgICAgICAgICAgICAgICAgICAgICAgICAg ICAgICAgICAgICAgICAgDQogICAgICAgICAgICAgICAgICAgICAgICAgICAgICAgICAgICAgICAgICAg ICAgICAgICAgICAgICAgICAgICAgICAgICAgICAgICAgICAgICAgICAgICAgICAgICAgICAgICAgDQog ICAgICAgICAgICAgICAgICAgICAgICAgICAgICAgIC AgICAgICAgICAgICAgICAgICAgICAgICAgICAgICAgICAgICAgICAgICAgICAgICAgICAgICAgICAgIC AgICAgICAgDQogICAgICAgICAgICAgICAgICAgICAgICAgICAgICAgICAgICAgICAgICAgICAgICAgIC AgICAgICAgICAgICAgICAgICAgICAgICAgICAgICAg ICAgICAgICAgICAgICAgICAgDQogICAgICAgICAgICAgICAgICAgICAgICAgICAgICAgICAgICAgICAg ICAgICAgICAgICAgICAgICAgICAgICAgICAgICAgICAgICAgICAgICAgICAgICAgICAgICAgICAgICAg PPz5O2ueNYQqKKMmKL4bOBo8Hb8+LQjBAnWsWYH6cm PnrM2WTH1ug7RlWXpaOPNai4YpUJq7HC0GKAIkAKjgYW6ATYzixn8ZXCHmDGDbvONPo0veEjQwRCA2XZ JpKpcpVI3JDPPqG0spanQqOGFmLRRSPC5QSeNsU0FmoG01ZPLIIc0+NTczcaQsBcvTZuPvSXTcf9WzGN y8EU1FSJEsVymjg8UcUuErGOJYDYczQX4DSWE6LLBx YOXfNj2OYYIvN174bjDbWE7GEh5KKlFbPZ0cbq1YTuOiASVkOihJWbn1LQmcFM2AqZLcHPhRDNWrONPm BK1wZinhIvFfLLDiTsxcl1OoVGEVTRR3PSkmMk5lACPoCLFzSoN3TVPGDE2IJVJqSHFagKJeHDSbCLEI UG9KKUhqYYN6FnrwygMgiSQuXKucDJ8WOYVabzFwTc IgMCBSDQo+Ru4HFA8mz3WtHFdyDRIkZA5jmf4FIFvSJxEvG0O7zBHtE3T6XHwjHw0SRAAcSGPeYuRsHJ NMIVowPK9FIR3agwT2NP8RbURvGQHbTHPtoSXbBRz2B92ofVQqWGccDT4CQFR+Rambo+Au7DDEQdDTLyCX ImHwEeDCRZPvZbR4WeN4STl2TmQ4GfWO19jWyeigLd UAhmFG6OCC4tDMMuCRVXEQ5SnNTezD2wqpCgYbRxDJIWTcWhA03npNTxLPApCLSbIPLaLm7YLDOlR0Vu qsWizZuybrDqXIUxBKIHQX1WPIiefdEfrSFjyRxhGG06kMcxKX7IXl1HJxQgSQ4uqh2EnCZkJn3HVTGa UV4FQYVaBBTnCKFvPEY2MGIcWoKqYUbnPLXzYBVcLN N2HYLrUANfOP0EQbYqAYTrCRhoEfPuRWLpOCJjfc4RNYZeOGAyHVc1THSgISRpLRGhVAamCIBgHCVyOT X7QGUhABZqYR4BQtAxKOFdWQY8HyOtVTCoIFYkie7VTPTqMTOeNQx1GCHnHDKwHZQsDYhiXPJqDXFyId Y0NIVtNMAoGP5WLhUkNPOnMFR5MnceVTVrYOQtaw2V LUUpMICvVkFxETWaOBFpRWArQMedCMPuAEH6QMonWCCnFWXtCK5ROyDiAVXnFZVwCjPwPHSqCALivt0P RKJlWIVgIXV3JeEnBYOaJKFqULwaRQXeDBP8JKItEWSsTQBqTW8LWiRnMDXcVMybXRqwBKUlTLJtar1U CDTgYVNhUgVgYqXmHSOfLTNgIXjlEGJhZIN3GGM1IM LnLTUlHN5CHjQwFRUnEXj1GPQcZBSmANSeya9OEFYzHJGiPCL8RMQkRUIwHSIeARiyDPIoUXY2KFY2CR WfNHPnCE5KNrArLYCvEOanIQLwNOHbIBTemy2LBDNtWFJqFNLcKCOePVGhISGrQWguDTNyVWHfYGG7RP JsWKVfCJ2KQqHxJVQpHbI4GqyfTVClJIOfpf9ZFUZb BRYgOHA4HoQyZNGzSINlZDe1sgPgnCLiANk1HP0XL4UppcPgXaOAOi9Gx872TLL7MYVzEj7ZP9tbKw6n MRLcVIKYBk2FGQb2SUJeOEW6YVXqOIndMKS6ABRtMED5ZBI5NMGkKZX5Z9H+IDxlNGVhNDkxZmFkOTM1 BtR8JyA3Udl9JwuuXaFtSsCfQC8oIUPEXv7+RQdnsCYvyRhdJSVUGbIlNuXyJXegZAIMRe3A ID Date Data Source [id number] 11/10/2019 07:08:43 PM EDT [facility] Name Value Range Interpretation Code Description Data Jing rce(s) Supporting Document(s) Consults [facility] SLXBKq6pJiMTUzLw43/WFMrcOVEfz1JwUOfiNIi4VQncVGWhQ7VgKIW9lL4tNEF6AZuECjUgYaRzMBV6 lbm [file] XjKCEoYmOcFZJ4FgPxFFPhGEYqZf2lEBQTNr5+MKrfyQFbxJerWMMHJoDqAvV1LVowQOZQEr4S ID Date Data Source [id number] 11/10/2019 01:28:40 PM EDT [facility] Name Value Range Interpretation Code Description Data Jing rce(s) Supporting Document(s) Care Plan [facility] VUWTTx3mWlPPNsUd69/CUNxsSZTbj4XsTOuuAFd4DHwzTWChQ0TrYME8yX6uPXY5MUfXIxAnIhJySIO6 lbm [file] QoLY4PVn2IRgO0CRH1cYLyGi3ULlBrXzpUBrGlEX1SKUv= ID Date Data Source [id number] 11/10/2019 08:43:00 AM EDT [facility] Name Value Range Interpretation Code Description Data Jing rce(s) Supporting Document(s) Triglycerides 232 mg/dl 30-200 Above high normal [facility] N-Acetylcysteine (NAC) and Metamizole conteh ve the potential to falselydepress Triglyceride results. Baseline values before medication adminstration are recommended. Cholesterol 177 mg/dl 0-200 Normal (applies to non-numeric resu lts) [facility] LDL Cholesterol 83.6 mg/dl 0.0-100.0 Normal (applies to non-numeric results) [facility] HDL Cholesterol 47 mg/dl 30-70 Normal (applies to non-numeric results) [facility] N-Acetylcysteine (NAC) and Metamizole conteh ve the potential to falselydepress HDL Cholesterol results. Baseline values before medication adminstration are recommended. Cholesterol/ HDL Ratio 3.8 0.0-5.0 Normal (applies to non-n umeric results) [facility] The above 5 analytes were performed by [facility] [id number], ,[place] [address] ID Date Data Source [id number] 11/10/2019 08:23:00 AM EDT [facility] Name Value Range Interpretation Code Description Data Jing rce(s) Supporting Document(s) TSH 0.61 uIU/ml 0.36-3.74 Normal (applies to non-numeric resu lts) [facility] Concentrations of Biotin above 100 ng/mL can potentially result ininterference.The above 1 analytes were performed by [id number], ,[place] [address] ID Date Data Source [id number] 11/10/2019 08:23:00 AM EDT [facility] Name Value Range Interpretation Code Description Data Jing rce(s) Supporting Document(s) T4 6.4 ug/dl 4.5-12.1 Normal (applies to non-numeric resul ts) [facility] Sulfasalazine has the potential to false ly elevate Thyroxine results. Sulfapyridine has the potential to falsely depress Thyroxine results. Baseline values before medication administration are recommended. ATTENTION: Effective 03/22/2017The reference range for T4 has been updated:Previous Reference Range: 4.5-12.9 ug/dlNew Reference Range: Female: 4.8-13.9 ug/dlMale: 4.5-12.1 ug/dl The above 1 analytes were performed by [id number], ,[place] [address] ID Date Data Source [id number] 11/10/2019 08:23:00 AM EDT [facility] Name Value Range Interpretation Code Description Data Jing rce(s) Supporting Document(s) AST 31 IU/L 15-37 Normal (applies to non-numeric resul ts) [facility] Sulfasalazine and sulfapyridine have the potential to falsely depressAspartate Aminotransferase results. Baseline values before medication administration are recommended. ALT 68 IU/L 16-61 Above high normal [facility] Sulfasalazine and sulfapyridine have the potential to falsely depressAlanine Aminotransferase results. Baseline values before medication administration are recommended. Alkaline Phosphatase 63 mIU/ml 50-136 Normal (applies to non-num mikey results) [facility] Total Bilirubin 0.60 mg/dl 0.20-1.00 Normal (applies to non-numeric results) [facility] Blood Urea Nitrogen 16 mg/dl 7-18 Normal (applies to non-nume lorenza results) [facility] Creatinine 1.01 mg/dl 0.67-1.17 Normal (applies to non-numeric resul ts) [facility] N-Acetylcysteine (NAC) and Metamizole conteh ve the potential to falselydepress Creatinine results. Baseline values before medication adminstration are recommended. Patients undergoing treatment with phenindione will have falselydepressed results. Patients on phenindione therapy should be tested with an alternativeCREA method.Toxic levels of acetaminophen may lead to falsely depressed results forpatient samples. Glomerular Filtration Rate 79.00 mL/min/1.73m2 [facility] GFR Reference Ranges:Normal Function or Mild Renal [...] of Health and the National KidneyFoundation. The [place] method used in calculating this result is traceable to IDMS standards. Glucose 82 mg/dl 70-110 Normal (applies to non-numeric resul ts) [facility] Sulfasalazine has the potential to false ly depress Glucose results. Sulfapyridine has the potential to falsely elevate Glucose results. Baseline values before medication administration are recommended. Calcium 8.8 mg/dl 8.5-10.1 Normal (applies to non-numeric resul ts) [facility] Total Protein 7.0 g/dl 6.4-8.2 Normal (applies to non-numeric re sults) [facility] Albumin 3.5 g/dl 3.4-5.0 Normal (applies to non-numeric resul ts) [facility] Sodium 140 mEq/L 136-145 Normal (applies to non-numeric resul ts) [facility] Potassium 4.0 mEq/L 3.5-5.1 Normal (applies to non-numeric resul ts) [facility] Chloride 110.0 mEq/L 98.0-107.0 Above high normal [facility] Anion Gap 9.0 [facility] Carbon Dioxide 25.0 mMol/L 21.0-32.0 Normal (applies to non-numeric results) [facility] The above 16 analytes were performed by [facility] [id number], ,[place] [id number] ID Date Data Source [id number] 11/10/2019 08:17:00 AM EDT [facility] Name Value Range Interpretation Code Description Data Jing rce(s) Supporting Document(s) [place] 0.90 mEq/L 0.6-1.2 Normal (applies to non-numeric resul ts) [facility] The above 1 analytes were performed by [facility] [id number], ,[place] [address] ID Date Data Source [id number] 11/10/2019 05:22:32 AM EDT [facility] Name Value Range Interpretation Code Description Data Jing rce(s) Supporting Document(s) Nursing Note [facility] FZMSCf9dFuBKLvWv10/SQKxrZTDpt1MpEHdsKEn9ROypVBYvB4DdAGW2yZ4jZVU7ODwCGzFeTrIqVOE7 [facility] [file] AgICAgICAgICAgICAgICAgICAgICAgICAgICAgICAg ICAgICAgICAgICAgICAgICAgICAgICAgICAgICAgICAgICAgICAgICAgICAgICANCiAgICAgICAgICAg ICAgICAgICAgICAgICAgICAgICAgICAgICAgICAgICAgICAgICAgICAgICAgICAgICAgICAgICAgICAg ICAgICAgICAgICAgICAgICAgICAgICAgICAgICANCi AgICAgICAgICAgICAgICAgICAgICAgICAgICAgICAgICAgICAgICAgICAgICAgICAgICAgICAgICAgIC AgICAgICAgICAgICAgICAgICAgICAgICAgICAgICAgICAgICAgICANCiAgICAgICAgICAgICAgICAgIC AgICAgICAgICAgICAgICAgICAgICAgICAgICAgICAg ICAgICAgICAgICAgICAgICAgICAgICAgICAgICAgICAgICAgICAgICAgICAgICAgICANCiAgICAgICAg ICAgICAgICAgICAgICAgICAgICAgICAgICAgICAgICAgICAgICAgICAgICAgICAgICAgICAgICAgICAg ICAgICAgICAgICAgICAgICAgICAgICAgICAgICAgIC ANCiAgICAgICAgICAgICAgICAgICAgICAgICAgICAgICAgICAgICAgICAgICAgICAgICAgICAgICAgIC AgICAgICAgICAgICAgICAgICAgICAgICAgICAgICAgICAgICAgICAgICANCiAgICAgICAgICAgICAgIC AgICAgICAgICAgICAgICAgICAgICAgICAgICAgICAg ICAgICAgICAgICAgICAgICAgICAgICAgICAgICAgICAgICAgICAgICAgICAgICAgICAgICANCiAgICAg ICAgICAgICAgICAgICAgICAgICAgICAgICAgICAgICAgICAgICAgICAgICAgICAgICAgICAgICAgICAg ICAgICAgICAgICAgICAgICAgICAgICAgICAgICAgIC AgICANCiAgICAgICAgICAgICAgICAgICAgICAgICAgICAgICAgICAgICAgICAgICAgICAgICAgICAgIC AgICAgICAgICAgICAgICAgICAgICAgICAgICAgICAgICAgICAgICAgICAgICANCiAgICAgICAgICAgIC AgICAgICAgICAgICAgICAgICAgICAgICAgICAgICAg ICAgICAgICAgICAgICAgICAgICAgICAgICAgICAgICAgICAgICAgICAgICAgICAgICAgICAgICANCjw/ rFCnG2fsjWPfuqG1Z3uqGl1XIj8LYV6sr4NsTBDeILhdhbZaZxsDDhWzPWLxRwjWJcv6HLvgMO4AoCCl P2GjS4QcYWclEV9VGUOdKNYowAGvKGNkCVQeKjQ4KZ VeTXvbXS3ShPRcTMctFEGoDYMfWB3PUGKaW842lmOqRZ1MLs1FDoSgEO1yia1ZYNsfQHRsGxuWTbt6ZA wsOH8OvIKxgKCvHKFpUKEPMwHmK7wao9OuHExnTXIDTYjxIR8Hp3CqaHYcCYc+Fi7IIS2tu5CpRAxeCG ZwTD2wxe9KPKdKLiCaO7EkzMssOR50wpAievvqSz82 WBTgxBRGv7KyoDVeSMVrs9AkCOFRQDP0KFvfIn5rQJCgXPG7OgThQNHLTK7GRZTuJTKnpHEfVHYcEXOO KO1CPXuhUDF0QktqreFtvAXwVGznRZ1LCBLgluKnFAfeEQOXTJa+Db2HGS1pf4JxUKvkJBQgLA6nrv4T IQaBWrBaD9H1yBIfL8F2LEosHd5NXBYqLSAxPVIjGL VCBFbaHX2TTQ7qxqU9ML0YyPCyNZXxYKThxRNqTJc1C04qsZUuZIuaWA5MMGO+Rambo+Bi2POTSjWOXtPY BuFsKoLNXZQxCxN5YkW7ICf5OuV3WfPZ68sVzscrDyCKooJL2ERS6rOSSjBPVPVV6TpCXmaI4ekdLrWb SmOWTEMmWhP85tzUCpZUXjBXE9ZLRePg0QQNIbH7Xa dhMieGmewmPbVFWuGCZDCC3NLAbmsyAirRBbeUskOV53pOqmSN9ZNx6XQtEqLQ9hai0DkJZeMq9GPNDq NG8YDZUxOGKmZUJmUDK9MLGpZaHhBFiaBRTcTREoHEP5RIHcDOKvIV9RXvOgJVWtHQPxQtIuWCBcKJFe qo8SXWXdDIEfQmT9GKCaCSGzAALlXRdsMTZoZSPuEP A9LZAcVBMqXN3ZZyFoQSOeDWHsYpvqERJkXCDxfm6PYSReWGWpSBF7ZKBtZRXzSILoLJglRGTjEEIqTm L4NBEiRKHfET1JUxCdKHQdWVV6ELBlFRMcEREftc9RJCMyUIQfZfAoLIUkDKArSKJkVXlzMUZpGPJpXJ t0IILoDOYxVY5QQuBsEYKrDEM6UPDxZTAsBCMubt4Z ORPuOSQeBis8RgSdWZSsUVYbJEtcBIScKIT2CAHxAPPlQYItKV7IOyXzCFFsDWUoTcEeYPLnOGPzru8D NWEhQXPxIILyBjFfURThUJGtBZqoIMFfKCU4MqJ8GKJxAJNsJE5UGzMqPBMyAKobFrxqUIHfRPYxfa6H ZFLtJEVfGhFtQDWyJGRnYXXnYDhtXUVyRXQ3FstiWG XlDHOcQC8QXkDmQMmfVCWGDys4SJbrB4d3QLDhNN3ZK3Wpq0WiBHtyNVUWXPabNK8qdzXwLWLwZp2HF0 zIJnk8WbS4MZV2BYAaBCfzT5RhTkCdPuwiBUv5XuYePMcmTx9vEABeWIowULl1XMVxUDN8JDTkZDZfG1 RlUPlwE3NgFXIbXhZbCO2LQz6OPtN2UUB4hFCyBz7ZQvBsYd1NEENYE9UGZl== ID Date Data Source [id number] 11/09/2019 11:20:34 PM [facility] Name Value Range Interpretation Code Description Data Jing rce(s) Supporting Document(s) Nursing Note [facility] EGSTDw3wXmIRSuVn33/LJHslKWJnb1YaFTaiAUp9QOarLSWzO2CwAKK8bJ0vAXL2KAjWSwBgHbXnABV1 lbm [file] AgICAgICAgICAgICAgICAgICAgICAgICAgICAgICAgICAgICAgICAgICAgICAgICAgICAgICAgICAgIC TsPIOqLTShGECqEIBbTZIsOMOfCONdZJFqCAYeMEFnRK7XBOPqBJTeTKAyAMGxUBVlPGLpSOYnTHPwFK AgICAgICAgICAgICAgICAgICAgICAgICAgICAgICAg CHCaROMtXTSxTDEdKNHyAFLxWUBiZJMrDZDjPHKmFDIqHSReTMJkEQIwEB1FZTVrHKTbJKBfTUYzXUCu ICAgICAgICAgICAgICAgICAgICAgICAgICAgICAgICAgICAgICAgICAgICAgICAgICAgICAgICAgICAg UEGhIUDgAMJrPUWpHJYhPVHbZEXjVTLoAI9DSZXkXP AgICAgICAgICAgICAgICAgICAgICAgICAgICAgICAgICAgICAgICAgICAgICAgICAgICAgICAgICAgIC EkYDGvMIDcVVSpDTRlJGYcPOKkRRLsZAYuHVZwTFCxVACuGU7SVGNxPHZkCBMcKWXqXJOfYUMdXVKiYI AgICAgICAgICAgICAgICAgICAgICAgICAgICAgICAg YTAeJHAdPOCqFJJvWKPkPYWbTVHiAQYnLNPkUWYxRUWcKSMoBSUzHLHsIUDvWP6WHREwTZRlXDZgYAWd ICAgICAgICAgICAgICAgICAgICAgICAgICAgICAgICAgICAgICAgICAgICAgICAgICAgICAgICAgICAg JNOxOKDeXKIzNFBpOWFlREHxGZUvUOQgIJYbJG8JMX AgICAgICAgICAgICAgICAgICAgICAgICAgICAgICAgICAgICAgICAgICAgICAgICAgICAgICAgICAgIC KuCEJnWHElMWBfTNWoYKRkVTReFGPlUWAwMLOoBUExSDEeHSZvNF5JLDPkTGNtHHUeKIGhMSGqLUJfJB AgICAgICAgICAgICAgICAgICAgICAgICAgICAgICAg WMLfVTBvJIOfMDGfKJItBBTaIIMoVMWaQNUpMLYaCIUsFLBfKSBtYVYyPEVzLFRbFS4IEDPsKGIuDGOw ICAgICAgICAgICAgICAgICAgICAgICAgICAgICAgICAgICAgICAgICAgICAgICAgICAgICAgICAgICAg ICAgICAgICAgICAgICAgICAgICAgICAgICAgICAgIA 0KICAgICAgICAgICAgICAgICAgICAgICAgICAgICAgICAgICAgICAgICAgICAgICAgICAgICAgICAgIC CrFUWtPJEtEKVhCHQgJJGlTDNjCTBxMBNbCEOxDNSqVBJfUJLlRRGlER4JIQ67tAKxu7Q0YUYcWD6xam c/In7XSLxfgdFjgKGmMZ3ADcJkDR1lmv5IVuZgWC4w ae2NLBdSPaVsY4V8cCWlGFXxAATSVvQbB46hUOhhSs80JMvrIFPvVgLlVPo1Ik5QGpFpA4vhKEWoIzF2 BXMaWcGrUUyqGE1Xq0QamPWmRSa+Xw3POZ6lv3PeQMlqMfWtNG2afz4VFIlEMbNdN5PnqvM1RPZvFRNs Ur1XEGSgKNGcdBGhEoKxPYCEMiVcN9AwaQ93CQFDBr 4+FHkydeHyGliQNwPrIBPro4SpIUz3EP7HNBWrNSy1aMYqGpYim2xrOwFXe4MdFWE2QNAhZFtqICPnh6 ehMXMQTkLcwJT5XcDpPmVlUGBlDSrhSDDXBBxKZjPsI1Vdc4PzNbG9JWExFhQvZIyuPVWzClL5EP07eQ bmKT5TDKYdGMLwXI78DGPaEQUnZf5KVh7ZBuAqJP0c xm3MRbAxFBEkIyvLHln4KKxrRU8DxXQcV3PvzDNmo2oKYzWnW9EUGAFbPMBpWb5GDDRwCnDtYNPxHCjj IO9bDGMgJKUUlPpnaeC8GA8HUJ0aalBaEH4KNkCaXe4lLq4GGsByE0WdX5DuNYZnHMKUAAapWQ7VLOiz SZ8qMO0Id4NBcSDtzL5wnp7OSTLaJODnNfkcyc7NWc xkG1T1zEfwAOMxNwZvQJQOHOluOS2JVZCzQJW7FAJvGWRyHNAJQhKoR49vCM6RU7Pka22eOoN3MUDbVy UfSPiyKS94kXrwmiSdmBFkoOhbVH4RHy9+DQplbmRvYmoNCnhyZWYNCjAgMjUNCjAwMDAwMDAwMDAgNj Q9GrLxRq2BTLIoAXBxAIShCjFaUHSbJTUuMMacKNGz NKX4BLIqJMEiRYPxYI2ZGjFgTEQwHpCjYWBhIMUiCWChxo8HNNHvCXYoFFT9SfOaPFVrAFHqDBvxHZRr BRSdKEqwJUJlIHPrKJ7SOpEqKDWjRVIvVJmfGNAiXAEnfb2ZIQRjLFUdTbX3LEVzXPJvYVOrKJauZWHp IXVbEWK4GYOdFSWyIV5OGjJkROPdRGQ7QTRmXNVuJG Vwvn4THPQuKJEsQbGgYRPpQWLuXBRfCUtrQFZoLPWiYwb0BPYfMDLaIW2ZSzFeSZXzOOT1GdgrGUMzEG Shiz9OCGKqQUMjHjTzCHFlOKUlYPXoZFutGKVvZWL4XpZ6NDAnTHHyAA0HNfRaZTFxILV1OEHqXQClAA Kuvu7TMQTkUAHaWfQ3GeEwRSQbUSOvIEyzWROrYXM2 PbI6DUVvRHMxFI4UKeSiCMJpRCcoOJDxDBJcKKImzo6IVBUlFUNkJTF4RoSqYPWdWSRkSQikGWLxGVW8 FNM2WORtNSLsJC7NCiQkLALqUZz5IMNzQCOpCDGqzc3BVIXsYRZoBEE3FdYmJZJuRTCbDMcvPWVnYZZj FDD1QAEhIGQrFU2NRdEfSGSmWkR3UMwsDWJlQOWxdk 0ToOIdjKfvzc9HZGmARi4QzAgrSYL0ZAnnOt9zsMPbTPZzYKJGCz9DlkCtIOIiSTPWCGpsIMVqVNF1RK x4LcItMgYcGJmwFXUjPSIhGVaeJgIrZsP9BCM1TzA2Csf3IDS5QWY5DOT4EfN2IiI8GXOzYJJuIAEkTW llNDQ+UM7aRUp+Cc4Lf5CvdqC4ueQpVWfmVFe1PJ0BMONTW0RGKm== ID Date Data Source [id number] 11/09/2019 10:19:07 PM EDT [facility] Name Value Range Interpretation Code Description Data Jing rce(s) Supporting Document(s) Nursing Note [facility] RYYUOt4mWmFDYqTt25/CEObzVSJuw5HiLLhiYLv5FUztQGLpK6QdBHP6bF6cEPV9OFyQJgVkTvSyRNZ2 lbm [file] ICAgICAgICAgICAgICAgICAgICAgICAgICAgICAgIC LxQPNiZCDlAJTuGSIuROAqMWJrZLSnAT1OPTPfKRHkDCIeNHIdZJIoFSAxLCIjYLWtTOXrLTKdRVNhOQ AgICAgICAgICAgICAgICAgICAgICAgICAgICAgICAgICAgICAgICAgICAgICAgICAgICAgICAgICAgIC UaVCYuIV0LCWAbYIRfTJPtPJEuLNWhHFMdNIRtRHVp ICAgICAgICAgICAgICAgICAgICAgICAgICAgICAgICAgICAgICAgICAgICAgICAgICAgICAgICAgICAg NPIiWKIgYWUwYZYlVEQeXR6VBTRoAJLiTFWcFAKlOYOtLSPtWJUfUSEvLCNyFNAdETJvEMSmUSXdEJBt ICAgICAgICAgICAgICAgICAgICAgICAgICAgICAgIC JtQHTxTIHlERSnDNHiEGLwSSOuWXByIVBuKW9PTPDrLKVbNFYvSXOtAJRoKYHfQCEdCPQaSSLyAAAjQU AgICAgICAgICAgICAgICAgICAgICAgICAgICAgICAgICAgICAgICAgICAgICAgICAgICAgICAgICAgIC VwZTVkIUYoLV1TAURiOCKsWPSqQZVyQNHpRFUgEQOj ICAgICAgICAgICAgICAgICAgICAgICAgICAgICAgICAgICAgICAgICAgICAgICAgICAgICAgICAgICAg NOUwINMyBRGzHCEsTHUgLYJfVR5DKBJeTMUhHCRwJRGqAHBuQZOrWMDxLVPtMTVgIKUxKALoMIFgTMTf ICAgICAgICAgICAgICAgICAgICAgICAgICAgICAgIC DbRUCxXFErLMGnAQEpMIPuHNQuMRAuJFKsECKqAH2BNRNoZBAuKZOtMZZsBHDkVVIxGRYhJCYxHYWlRU AgICAgICAgICAgICAgICAgICAgICAgICAgICAgICAgICAgICAgICAgICAgICAgICAgICAgICAgICAgIC SoIGTcRFXyIQJsCH8UBMVcJAJvSQKiRYWqNLCeACHm ICAgICAgICAgICAgICAgICAgICAgICAgICAgICAgICAgICAgICAgICAgICAgICAgICAgICAgICAgICAg URHtJSAgRKQxILWnHPXvDZAeNRZzYS6GTQQfZNJeBSSaYBIhFJByCQStIWLhVVXfTZLfECKwYSCmGSRi ICAgICAgICAgICAgICAgICAgICAgICAgICAgICAgIC UpIXHvAPPsJSXxXTAmSXRjSWRlAQQaQGQiPYOlZJKjZZ6YZN58iLJap2W5ZNVpZJ6kdfz/Ad5EFHecnu EpxBCtGG7PBrFeJB5xtr0CGdYeEX8fzz9EBLbKYuErA7I7gSVcBNGpGFSFSfTlZ07aITxbHt88NJccBU QdTsMyOTw4Ft8PWcOhG3xlMYLhLcI9HVGkJtOjWBbv CE1Sj0SqrFJlJOm+Yq3AVD3th8YwQGtdFeUaLU9kjx1OHStLVyPrI3DtlxE8ROYdFQSjDi7OOXWhHZYo bOKgOaGwPEBSXeZsS9HatZ93YZPRUl7+BNfbqfAcYufAExCzVWLnx0YnQNt6HY0TSLRoGNc0tMFeNrYc c8shJmIQu7XyFJL3EGWqSXaxAUCNs4zfWOZoAWLTTN Z7OUfpMj1vJUMuUNI7CrCnIWCTKT1EWEHmTDWlpBCgLVLuECJFWS9CCHfpWYW3FvvuznAdmEOyORobGF 9QYXJlbnQgMjIgMCBSDQo+At4JEX4mc5CfJTldLLHwTY6uew6DPVhUKhHlB2W1qIKiQ3Z8EKlkGs9ZPG RgRRRjOwWaROETMVajUY8DGW0frkT5KU2EtESwRQNq PRFglLGyUZz3J76ryXTrLGjkVS1BSQK+Rambo+Lj3KTRMhVLIkKDIjUqJdJRVVNmUvQ7YhR2GZe0PqH6Fg CE40dQdvmgHxFGvcNA7SII3eQVSbZRVMHY5ZcFSfcA7dswNgCeKrIZSBPhPiQ06vzXAjNHCgGRYkUUId Oi2DYSIwK2UuicSfwEqsjjZbKOIgZMYCYY5PLMbpdu HeqEDgpFydLW56mMujGK8KKz4GUyRrSV5toj1AhJMuGs1OXWXbSV8RQKZpGDCpEWAoDSQ9PTZnLbYtXP jiNGPnVQVdOSW5VCTgHBQtPC3HRkMbDHThEDf3QHIxHYSxWTTpiy0FJITuCUZnMDBkGHYxSDLmRWHhHK heIJYvYLOrTYT7ZZOoZSJyUA8AMmEcGRRoEYA5RaSk KSZlDGPojx6JUXNjZDLtGoIfEnFeRXRrVKZaAMgrVSQbFQJnVSk3ZNXoVFXsJP0VWjNoLHWqJSHdJKXe YJBtYIKvrm4SEKSxZVKjSsV3CXCjPPXxSMZoNRybXAQdURO5MRKyPLIcCSOvBI5BIyQmDIPpKTV9Rope NALwFXPlxb3MEIMhFYFrPJeuROCaRFHzNMCkCEnjFD AtUOM0IIR4IWSmBKIaLO5BRmJcKFLfQFh2YWIwMWKaAYJwfh4LTCJeGAUrYgO0UzQnCCPfGJElWWqbIL XnFVL8LKBaHEKgHRUqFP7TGyVfNKIeDWuwBrqxYXQlUGJlre7CPXFvZEFoJTOxKHIcLNDpSQMiEXjxRA OaOTY5EsE0KOAgKCPwOI7XMjPiHWXgCOfuWatvSTYk IIQndd9LEWMvFQRySKw8INFfVLIwYXAlOIscUNFhNDNhNdGvAQNpPLPgML8HSlGtLILoQyHdHZWzHMHe UTUnvq6BCZTwDFSmZRW4JSMdFHEhEQQmHEn7wmSjoHThPMe0CD9HB6WerzBdGiHXFv0Xz230PSU8UEMy Yk4NP7qnZl8ePDCmUQOXYh8RKPr4HsF2KKL0WmIdUx T2WjBqViMgPZJrQCn8OvZ9JvqoI7P+AYutNRauOYu9ZORkSnNcGtPfGSC6LcC9PVPzZtzvMHYlQm0kUL ANCj4+ZIwewDBodFbzHNERWdXqNsthMGabCZYCYm1Y ID Date Data Source [id number] 11/09/2019 07:52:38 PM EDT [facility] Name Value Range Interpretation Code Description Data Jing rce(s) Supporting Document(s) Care Plan [facility] BNBVNm1wWxRIZaRf92/CRHgoMYCnw6QbTZegTUq2ZBtbCFElT5BpAZT1yH9uKUN5ILeQHdBqGqKcSRG4 lbm [file] PNgzOHb5D4XtHYH9EEX7SPV8KTQeYa0kFMHGUt8+QGokcCBurJhyOIBPXiO1XEDpWSryLUBPHn9D ID Date Data Source [id number] 11/09/2019 07:10:11 PM EDT [facility] Name Value Range Interpretation Code Description Data Jing rce(s) Supporting Document(s) ED Provider Notes [facility] GGEYUk6aNjXUEyIg13/OTTjfYLYjy9QvVJwfDWa8YQrqAUNpE4QhFEM2zP7sFWV0IPfIJcRjWpEhQKX0 lbm [file] 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+LDQokEIG6PAGuO/M/yzz7u7Ym9y70W5o61/j0N2mFZ4fJxM5/HOVXDI93HHzrb8yenspFgDCPnP+ [file] ICAgICAgICAgICAgICAgICAgICAgICAgICAgICAgICAgICAgICAgICAgICAgICAgICAgICAgICAgICAg ICANCiAgICAgICAgICAgICAgICAgICAgICAgICAgIC AgICAgICAgICAgICAgICAgICAgICAgICAgICAgICAgICAgICAgICAgICAgICAgICAgICAgICAgICAgIC AgICAgICAgICAgICANCiAgICAgICAgICAgICAgICAgICAgICAgICAgICAgICAgICAgICAgICAgICAgIC AgICAgICAgICAgICAgICAgICAgICAgICAgICAgICAg ICAgICAgICAgICAgICAgICAgICAgICANCiAgICAgICAgICAgICAgICAgICAgICAgICAgICAgICAgICAg ICAgICAgICAgICAgICAgICAgICAgICAgICAgICAgICAgICAgICAgICAgICAgICAgICAgICAgICAgICAg ICAgICANCiAgICAgICAgICAgICAgICAgICAgICAgIC AgICAgICAgICAgICAgICAgICAgICAgICAgICAgICAgICAgICAgICAgICAgICAgICAgICAgICAgICAgIC AgICAgICAgICAgICAgICANCiAgICAgICAgICAgICAgICAgICAgICAgICAgICAgICAgICAgICAgICAgIC AgICAgICAgICAgICAgICAgICAgICAgICAgICAgICAg ICAgICAgICAgICAgICAgICAgICAgICAgICANCiAgICAgICAgICAgICAgICAgICAgICAgICAgICAgICAg ICAgICAgICAgICAgICAgICAgICAgICAgICAgICAgICAgICAgICAgICAgICAgICAgICAgICAgICAgICAg ICAgICAgICANCiAgICAgICAgICAgICAgICAgICAgIC AgICAgICAgICAgICAgICAgICAgICAgICAgICAgICAgICAgICAgICAgICAgICAgICAgICAgICAgICAgIC AgICAgICAgICAgICAgICAgICANCiAgICAgICAgICAgICAgICAgICAgICAgICAgICAgICAgICAgICAgIC AgICAgICAgICAgICAgICAgICAgICAgICAgICAgICAg ICAgICAgICAgICAgICAgICAgICAgICAgICAgICANCiAgICAgICAgICAgICAgICAgICAgICAgICAgICAg ICAgICAgICAgICAgICAgICAgICAgICAgICAgICAgICAgICAgICAgICAgICAgICAgICAgICAgICAgICAg ICAgICAgICAgICANCjw/qDCrM2zejURbaxC2H4hlIa 7KHf0LJF4lu2JuXJQyEMpszpYpJgqOIsGzNBUpVkfUFta2ZKgpXO8VvUWkG9HtS3GfRUdhXD7AIGPvXA OukNEjUFYwMCWjOaM6SOGwYJpnQB1NpDHaPHepHMVhJDAcTqKxZICtMFXjDUKiIN0HUTXfS170fuSzJj 7YVw8JZbBgCW0jdf6IEmfdXHSaPagNHof6QRtuKM1K rLDwbCWcZKVcHWRWChKzG4agc0GzLrRkFWSGPUvmXY4Ri2ZyzJAgFVg+Di6MHA8hr2CvWXchFIPkUY6e qg5DANhMLaNgH1BhwVorRJUUGABzl5YaDWZjUZ0htUGpQYE0SPHvPE2vq0DbJZEsF4TnlQr8iyfjBHZg TUYjEW25LiWgKuRrKGN3UmRwRO7vITczAA6IAJI9GB utCIUuYXWdB9nDHfXtUGeaZJGcaOnuMI7NHmDoS7GfmyLcoHFqVPAwTNUIOc3+DQplbmRvYmoNCjMxID Wvw4OeJLp5TW2ETBVoQIsvBW9NTRKdtQ5pQNzfEW8AEhBhYmJhJMZSWaSpY92zcHRtHCt9L2JuLgEcTT VkRmlsZXMgPDwvTmFtZXMgWyBdDQogID4+ID4+DQog MP5DRVipxePsCRNtJq4LCCGsWIWnIL1lPINgROHzT1M8iJgtPUJXXxOxP3aczgylRF6vBYSnD825wDzh buZoPLG8VKZyVo7LWYBdTPB4BYBfeNIxXygjBRMFZCqoBI0OgEIxISK9qD3pUCtnUKJeJUVcE1uCLxHc uUzzMY19iEamddGxtQTcLUe+Xb1GLT0ml3UiMHk5xy XyNWxzQLUmSYjnGYXqHJZqQBGnXLR0NOS5UHPZCwXcEGZtAQIcBPlyXEVfSSPpmt7JCUPwDASiUnGtMQ PtZKJnHRTpEOmdKDNfROO7JVXgEWAvCGMtWS1XOdYlMWTtCJGuDDvfAMHkHUPvlz8RURCxTQLlAtAlUB FjXPOxWCWwRGpdJINnOCMdBPJ1NYIdZYTyUW5RKbZf QFTbFWX7OZIhGQBzYYZfik8GBYLrCQKgUNE9EJRnOKKxVQQoONzuHRFdICX2Voa0OEVwSIHpVL7VMyHa MXMvTUk3SZstFXSmXQGdnn4FJUEhEKQfQQN1KBSiPFTrRQQwIRtiZBHjWTT9NnJkJKRwOJGoPU3HGmWc WSFeEIq7TGmkALGwWNMfcu5QDKBfBDOxYRjvECUwIX FaPEVjWRqiEQMqCRUpNKL3QTVpSLWaIB8CHkJpGDAfLJHsLVffMQSsLSOwdn0FVMUkXSCbDTP9WbIlUQ SuWCApGBfhAWYdIFDdYLV5BYZkYOGbJS7NVnXcWRHpCME2QGVjZKQwAVYeza3ZJWVbZFAqSrWeYmSrOB CbMWAfGSmuAUTwKYXgJTIlXPAeXRYuZS2ABqZiGIFo DYM1SHezBQNzTDMuhl7DQOWoIXGpROF5KeVaIOSiHRHzYWxnWMYeZTX9Wak9RKXlSGRiPV6KGhQaYJXl AaN4VYTbIGUcGMLubn2SIOPsCQXpZsBpXkGkVLLvFJKuUKzxWRFsTII1Zor9DMXxUGSrLW8ANbKiPMJu TvR5JTGiPBTyQNEbdz2KHGWnVELeFSL1LUBgZXYhNU NyHIwvJPHeMTX6PwFsLXIoASUxVO0TNxPaVKHfZzayZQiiIQDuYZJcka0RvFBpoRmglm3TZJoLLy1ZbS zxQKEsYSkhEd1olVAlTECpGEOUIn3TgrDqPJUjJZZXOTzwBRJvPKM1Q4IcBEWnRGLgRFElAsx9QNH6SY IjHORjTvR7KdSoZzA6NqBnQXRoPIB5M4D2TCF2IQO6 WoinTAAkJKYuOJk4BiL+AM0lGXj+Xc6Sl1QlmuA7hlPzEUbxIUXoHL4YBWNBS6VNDj== ID Date Data Source [id number] 11/09/2019 05:57:41 PM EDT [facility] Name Value Range Interpretation Code Description Data Jing rce(s) Supporting Document(s) ED Triage Notes [facility] OKVPKm6qMlDJYfNi78/GOMunXALet4QnNGshTZh6BQiaPXMgL5UqKGC4cD2cYCK4QJvYRxTpArCxVZQ8 lbm [file] 9GDQo= ID Date Data Source [id number] 10/20/2019 11:51:05 AM EDT [facility] Name Value Range Interpretation Code Description Data Jing rce(s) Supporting Document(s) Progress Note [facility] GBMFRw7zUtCXCgZj73/DEUooUCDce0SrHOxlFBx9JYaeVAIyW5QvNWB5vZ2bMRE9LDtOBcJgYlZwELW3 lbm [file] AgICAgICAgICAgICAgICAgICAgICAgICAgICAgICAg ICAgICAgICAgICAgICAgICAgICAgICAgICAgICAgICAgICAgICANCiAgICAgICAgICAgICAgICAgICAg ICAgICAgICAgICAgICAgICAgICAgICAgICAgICAgICAgICAgICAgICAgICAgICAgICAgICAgICAgICAg ICAgICAgICAgICAgICAgICAgICANCiAgICAgICAgIC AgICAgICAgICAgICAgICAgICAgICAgICAgICAgICAgICAgICAgICAgICAgICAgICAgICAgICAgICAgIC AgICAgICAgICAgICAgICAgICAgICAgICAgICAgICANCiAgICAgICAgICAgICAgICAgICAgICAgICAgIC AgICAgICAgICAgICAgICAgICAgICAgICAgICAgICAg ICAgICAgICAgICAgICAgICAgICAgICAgICAgICAgICAgICAgICAgICANCiAgICAgICAgICAgICAgICAg ICAgICAgICAgICAgICAgICAgICAgICAgICAgICAgICAgICAgICAgICAgICAgICAgICAgICAgICAgICAg ICAgICAgICAgICAgICAgICAgICAgICANCiAgICAgIC AgICAgICAgICAgICAgICAgICAgICAgICAgICAgICAgICAgICAgICAgICAgICAgICAgICAgICAgICAgIC AgICAgICAgICAgICAgICAgICAgICAgICAgICAgICAgICANCiAgICAgICAgICAgICAgICAgICAgICAgIC AgICAgICAgICAgICAgICAgICAgICAgICAgICAgICAg ICAgICAgICAgICAgICAgICAgICAgICAgICAgICAgICAgICAgICAgICAgICANCiAgICAgICAgICAgICAg ICAgICAgICAgICAgICAgICAgICAgICAgICAgICAgICAgICAgICAgICAgICAgICAgICAgICAgICAgICAg ICAgICAgICAgICAgICAgICAgICAgICAgICANCiAgIC AgICAgICAgICAgICAgICAgICAgICAgICAgICAgICAgICAgICAgICAgICAgICAgICAgICAgICAgICAgIC AgICAgICAgICAgICAgICAgICAgICAgICAgICAgICAgICAgICANCiAgICAgICAgICAgICAgICAgICAgIC AgICAgICAgICAgICAgICAgICAgICAgICAgICAgICAg ICAgICAgICAgICAgICAgICAgICAgICAgICAgICAgICAgICAgICAgICAgICAgICANCjw/eBDwC1yibHTo ryS2V5qzMl2BRz1WCP9ic5RmQGOoRNvsmmCgWhwJIsZiYZDjEzxBSdw7FLppCU9LvFVaQ2CvR6OeJXkj BU8ARKXeUPLbeGLiLOPjCBZxZkO0TBZqBCbwYG7VfG BpZJpxUSRrERJwZgEiEGFfLBCbTRWdCGKeSRAVBEZwPMAnSxLsYKKoATPtRRzwYFBAIGU2VIXpWiErVF koIJ4Cx3XijRK4SXq+Ed1RKC4va5PdGUyeFXImJC2wpx4YAChGLiZdY3KyexR3TAThKRAtTl1FXEByOI EmpWI1LMSkWFGDGyJlZ1WnaE77HXLFNi7+DQplbmRv JdtUTeAqNQRgs4XbEXj4NV4NQGCqGOg9yXJhMLImG6Gbc8KzTs70JNYyHamvOlYzewXqFFYOQPGcmXAk dhskPMJrKYUeKQ8eQs5fFRFnKXSfSoGtPULLOK5HXXIbHXLbhXEhTKRiBIMKNQ6MKLmqJUM3DVHjrbGb xPWmRZupTC0XDNEyvbMmDdogHUSXRBb+Vk3UPP6ek7 HxTDn4RSQnJF7pls0WXLmQRrZyM6J8bQMjA0W4ORnqPj0YUCNkNLPgZjjtUZKQVDweEW6OMA4ciyB3VH 7XjQNqAFTxKFTnsHGaMWr3K98oqFHgJUbyYY0FBWC+Rambo+Gq2TBYThZTJfTRBeZnIyFAMCQaVfS4LyS8 RGh5MvW8ZgLK64lIoazmLfFVifIX2FRG9nLZZxWXEM KF5YxWZiiD0cgdFwIXKnAUOCLfHkE10diYNiWZKoPZF7ZXTuCe3JWWQlW5LxpoXblGjhmmJrIMFaKMBH TD4LJLkczwUhpFRffBlzDN00rBodVB7FJe3NPmNiZJ8phi3ThERfIt2BROA0Fn8PNZYpFJUeGXVmXXD8 YXNeEtMwXKmxGYGrDTSlVNP2ILXbVHJfVH4KYtShPU JlOkn0ILXtRRMeLTHard7MRRSiNBM6YSN9FcPeSBTdDAAwOQtyVKJoXPMyPTL3PSMjTYHeLX2XJbWiRC RnMGDsRURbBEOsGNVdwm2MAZTpDZQnDYAgWBNdEIIlGGOwRIxvQNFpPHO0VPyyHAGgNOLhRB2NEhQfGD KpZUmyEvfsAZArXRCfnh6IFGHmMQQvEYk5GyHyILPj ZIZbCWywOBLfMBLkMIrqEMThSRWnSG1MApWcBCHhCEN8FNilDEWeDRIfio1ZITUhRSVjDqPhFCKwNAXl BWJzHSowHEHbTAL6OoQ7QBVtUFPoME7KXbRrCWUvTMK3GwLfVOSeLWEoxq4FTMDmWYRxJhV7XCBbGRKg THBrCVmyCVSgOCT8Cfk4NVQaAQQjMP9WTlQuPZRyMi DfNsAyCVTgTDQkji7IKRKtPUYfNIM7FYUwEFPfKWHoPQrtRMRqRRFeDEFkPWFbDHRaKU6JUtVrXKQuQg VqVWikVOOyRGQwzx7NIJKuCGDaFxKkQGFdKIXxTRZxFEmvVSFwBXBmSSR5JWFzBOUjFR2RAcAdISKhZh D6YYqoYUClEQRwds6GHEDxCKXxLpO4UVPkOEUrPOUw JQquCDZsJEMhTvKsCLKiTWJaEX8QKxTiCFDfLjM5FjcxFGDkKIDemc0MLABhSTWcDPV0QBBnIQTbFLPt PKlcLXHwTFI6LvspJCZoZOFcVH1DIcMdWKGkNtQ0HKTjDFPwZTTcjq2PZEOxDKXfJcY1RwCxPERgOIVu YTjoAZIhKGC0Qhd7QORrCHInQX6TEsFuPVGePmomPY WrISEfTPKxrt8MHIAgAHJhFqZjQkGbBWFfXKFdKFovRFRoYUZ0SyDsJSIqIIUcDH5CEcAuRSZkBhp0GZ IpHJEqWHLzaz3GWSGrOBQsMZm1ZuNyJTKzEJUzMNbnPOImLVZ2SRAuYOXsKJKsXV6WZqMlXTOfHebgKD YxPIElKLTccc2YGGJoWSL8JKvmWIBwIIFyWQUcRCfs ATWeHYLhYBE7TARlNISaRJ0JQdAjOZCrSUDxGiJqICJxBRSetc6WtHClgTlwcc0DDBrLTz4HbHrcAXNm QJqxVi3wdOO2BBNbJRWIHx3OpzDlGFExSNLIAGnzRYWxCETzBqKkUfG7EGrjWXS2OSK7UrNeZON5RIU6 F8F4VyO7MzC9AxB0Q9MvHTHlQDAgLrg2DzfpRMPkJA ZlMjQzYzkzNDc+VZ8dNTb+Kq0Im4FvgjU0waWeDGh8USOeCO5SPOZMY7EWNe== ID Date Data Source [id number] 10/17/2019 04:02:00 PM [facility] Hematopathology Report See Addendum Eric wName: YUDELKA RAMIREZ. Number: [id number] Date: 10/16/2019 13:11Received Date: 10/16/2019 14:02Physician(s): CORNELIO [...] 10/22/2019 T-cell PCR shows three clonal bands ([id number]). These bands are slightlydifferent from those detected in April 2019 and are entirely differentfrom those detected in 2017 and 2018. 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 Addendum Electronically Signed By: Lisseth Villa M.D. 10/22/2019 10:45 ProceduresFlow Cytometry Date Ordered:10/16/2019 Status: Signed Out10/17/2019 InterpretationPERIPHERAL BLOOD: CBC performed at [facility] #[id number](10/16/19)WBC 8.4 K/uLRBC 4.75 M/uLHgb 15.5 g/dLHct 44.9 %MCV 94.6 f LMCH 32.6 pgMCHC 34.5 g/dLRDW 12.9 %MPV 8.0 fLPlatelets 168 K/ulDifferential Count (100 cells):64 % Neutrophils 3 % Eosinophils 1 % Jxpaguutx46 % Lymphocytes 9 % Monocytes-------100 % A peripheral blood film is reviewed. Lymphoid Panel: Ashley Ybarra [id number] following markers were assayed: CD45 (gate), CD2, CD3, CD4, CD5, CD7,CD8, CD10, CD19, CD20, CD38, CD56, CD57, Maceo, and Lambda.# events: [id number]: 98%Flow Cytometry Differential (CD45/SSC)Lymphocyte Langston: 37%CD45 dim Langston: 0%Monocyte Langston: 6%Granulocyte Langston: 50%Nucleated/Erythroid Langston: 2%The lymphocyte gate showsB-cells (CD19): 5%T-cells (CD3): 70%NK-cells (CD3-/CD56+): 20%Maceo/Lambda Ratio: 1.9CD4/CD8 Ratio: 0.6Results: (expressed as % of lymphocyte gate)T-cell Markers: CD2 = 84, CD3 = 70, CD3/CD4 = 25, CD3/CD8 = 43, CD5 = 69,CD7 = 86, CD3/57 = 21B-cell markers: Maceo = 3, Lambda = 2, CD19 = 5, CD20 = 5, CD19/10 = 1,CD19/CD5 = 1, CD38/CD20 = 4Light chain as % of B-Cells: CD19/Maceo = 62, CD19/Lambda = 34CD19/CD5/Maceo = 4, CD19/CD5/Lambda = 1CD19/CD10/Maceo = 4, CD19/CD10/Lambda = 2NK cell Markers: CD56 = 23, CD57 = 38Other Markers: CD10 = 2, CD38 = 38Results: (expressed as % of CD45 dim gate)T-cell Markers: CD2 = 36, CD3 = 20, CD3/CD4 = 1, CD3/CD8 = 20, CD5 = 7,CD7 = 49, CD3/57 = 0B-cell markers: Maceo = 0, Lambda = 0, CD19 = 4, CD20 = 2, CD19/10 = 3,CD19/CD5 = 0, CD38/CD20 = 2Light chain as % of B-Cells: CD19/Maceo = 5, CD19/Lambda = 0CD19/CD5/Maceo = 0, CD19/CD5/Lambda = 0CD19/CD10/Maceo = 2, CD19/CD10/Lambda = 0NK cell Markers: [...] were developed and theirperformance characteristics determined by [facility] Pathology department.They have not been cleared or approved by the [place] Food and DrugAdministration. The FDA has determined that such clearance or approval isnot necessary. Name Value Range Interpretation Code Description Data Jing rce(s) Supporting Document(s) ID Date Data Source [id number] 10/17/2019 01:50:10 PM EDT [facility] Name Value Range Interpretation Code Description Data Jing rce(s) Supporting Document(s) Protein [Mass/volume] in Urine 8 mg/dl [facility] Albumin/Protein.total in Urine by Electrophoresis [facility] Alpha 1 globulin/Protein.total in Serum or Plasma by Electrophoresis [facility] Alpha 2 globulin/Protein.total in Urine by Electrophoresis [facility] Beta globulin/Protein.total in Urine by Electrophoresis [facility] Gamma globulin/Protein.total in Urine by Electrophoresis [facility] Protein Fractions [Interpretation] in Urine by Electrophoresis [facility] Corrected 10/16 AT 1350: Previous Resul t was MILD PROTEINURIA IN SELECTIVE PATTERN. Pathologist name [facility] ID Date Data Source [id number] 10/17/2019 01:43:59 PM EDT [facility] Name Value Range Interpretation Code Description Data [facility] rce(s) Supporting Document(s) Protein [Mass/volume] in Serum or Plasma 7.4 g/dL 6.4-8.3 [facility] Albumin [Mass/volume] in Serum or Plasma by Electrophoresis 5.05 g/dL 3.80-5.78 [facility] Alpha 1 globulin [Mass/volume] in Serum or Plasma by Electro phoresis 0.13 g/dL 0.08-0.23 [facility] Alpha 2 globulin [Mass/volume] in Serum or Plasma by Electro phoresis 0.64 g/dL 0.45-0.92 [facility] Beta globulin [Mass/volume] in Serum or Plasma by Electropho resis 0.73 g/dL 0.50-1.03 [facility] Gamma globulin [Mass/volume] in Serum or Plasma by Electroph oresis 0.85 g/dL 0.54-1.30 [facility] Protein.monoclonal [Mass/volume] in Serum or Plasma by Electrophoresi s 0 [facility] NORMALLY MIGRATING SERUM PROTEINS. Pathologist name [facility] ID Date Data Source [id number] 10/17/2019 08:29:59 AM EDT [facility] Name Value Range Interpretation Code Description Data Jing rce(s) Supporting Document(s) Flow cytometry study [facility] ID Date Data Source [id number] [facility] Name Value Range Interpretation Code Description Data Jing rce(s) Supporting Document(s) Leukocytes [#/volume] in Blood by Automated count 8.4 10*3/uL 4-10 [facility] Erythrocytes [#/volume] in Blood by Automated count 4.75 10*6/uL 4.6- 6.1 [facility] Hemoglobin [Mass/volume] in Blood 15.5 g/dL 13.5-18 [facility] Hematocrit [Volume Fraction] of Blood by Automated count 44.9 % 4 1-53 [facility] Erythrocyte mean corpuscular volume [Entitic volume] by Auto mated count 94.6 fL 80-96 [facility] Erythrocyte mean corpuscular hemoglobin [Entitic mass] by Automated count 32.6 pg 27-33 [facility] Erythrocyte mean corpuscular hemoglobin concentration [Mass/volume] by Automated count 34.5 g/dL [facility].0[facility] distribution width [Ratio] by Automated count 12.9 % 11.5-14.5 [facility] Platelets [#/volume] in Blood by Automated count 168 10*3/uL 150-400 [facility] Differential cell count method - Blood [facility] Neutrophils/100 leukocytes in Blood by Automated count 55 % [facility] Lymphocytes/100 leukocytes in Blood by Automated count 29 % [facility] Monocytes/100 leukocytes in Blood by Automated count 10 % [facility] Eosinophils/100 leukocytes in Blood by Automated count 5 % [facility] Basophils/100 leukocytes in Blood by Automated count 1 % [facility] Neutrophils [#/volume] in Blood by Automated count 4.63 10*3/uL 1.8-7 .0 [facility] Lymphocytes [#/volume] in Blood by Automated count 2.39 10*3/uL 1.2-4 .0 [facility] Monocytes [#/volume] in Blood by Automated count 0.84 10*3/uL 0-0.8 H [facility] Eosinophils [#/volume] in Blood by Automated count 0.45 10*3/uL 0-0.5 [facility] Basophils [#/volume] in Blood by Automated count 0.07 10*3/uL 0-0.2 [facility] Nucleated erythrocytes/100 leukocytes [Ratio] in Blood by Automated count 0 /100{WBCs} 0-0 [facility] ID Date Data Source [id number] 10/16/2019 02:00:37 PM [facility] Name Value Range Interpretation Code Description Data Jing rce(s) Supporting Document(s) Lactate dehydrogenase [Enzymatic activit y/volume] in Serum or Plasma by Lactate to pyruvate reaction 181 U/L 122-225 [facility] ID Date Data Source [id number] 10/21/2019 03:56:00 PM [facility] Molecular Diagnostics ReportName: YUDELKA RAMIREZMRN: [id number] Number: [id number] Date: 10/16/2019 00:00Received Date: 10/20/2019 09:54Physician(s): CORNELIO FLETCHER,CORNELIO CHAPMAN,[facility] To:HUMBERTO MADRID PABEM, SYLVA,ROSARIOpecimen(s) ReceivedA: Peripheral Blood - T-cell, [id number] OF STUDY: T-cell Receptor Gamma Chain Gene - PCR AssaySPECIMEN TYPE: Peripheral Blood (#[id number])RESULTS: Positive Family I & III / J [...] Gamma Chain gene (van Randallen et al. [id number]:2257- 2317, 2003). A positive result is expected [...] validated and authorized for clinical useby the [facility] Dept[facility] of Health ([facility]). kz/ Aleksandralectronically Signed By Joshua Garcia M.D. Attending Pathologist 10/21/2019 15:56:42 Name Value Range Interpretation Code Description Data Jing rce(s) Supporting Document(s) ID Date Data Source [id number] 04/29/2019 03:23:00 PM EST [facility] ([facility] Name Value Range Interpretation Code Description Data Jing rce(s) Supporting Document(s) Alanine aminotransferase [Enzymatic activity/volume] in Serum or Pl asma 70 [facility] ([facility]) Albumin [Mass/volume] in Serum or Plasma 4.0 [facility] ([facility]) Calcium [Mass/volume] in Serum or Plasma 8.9 [facility] ([facility]) Alkaline phosphatase [Enzymatic activity/volume] in Serum or Plasma 8 0 [facility] ([facility]) Carbon dioxide, total [Moles/volume] in Serum or [...] GFR 1.04 [facility] ([facility]) ID Date Data Source [id number] 04/29/2019 03:23:00 PM EST [facility] ([facility]) Name Value Range Interpretation Code Description Data Jing rce(s) Supporting Document(s) Hemoglobin A1c/Hemoglobin.total in Blood 4.9 [facility] ([facility]) ID Date Data Source [id number] 04/29/2019 03:23:00 PM EST [facility] ([facility] Name Value Range Interpretation Code Description Data Jing rce(s) Supporting Document(s) White Blood Count 9.3 4.0-10.0 [facility] ([facility]) Platelets 190 150-450 [facility] Hematocrit 44.9 [facility] ([facility]) Hemoglobin 15.3 [facility] ([facility]) Red Blood Count 4.67 4.30-6.10 [facility] ([facility]) ID Date Data Source [id number] 04/19/2019 10:24:19 AM [facility] Name Value Range Interpretation Code Description Data Jing rce(s) Supporting Document(s) Progress Note [facility] [id number]/GVDvlMHYfz4LzFUipOQp5SUcqPOMgZ0JjTTO1jV7yQJB1TKuYPaIfGqBqMiY2 lbm [file] [employer]+Yy9VJZTlWYw7Q3I4UTNcFRs1I9BVP3YYSANmPY ryCKftPTZcLYo5U3Y2WSKpE9LDU3Tqpkuexy8+BK5HG23SWMVcBEb2N9P5nUYaE9O4uQuXrCV3IF2IAO 9DqQv1pTXbhR2+BS4EE1JORgXbKBk5Z7Z2pLKkT6Z9mZtVkNA8CJ4OUZ8MgBWgTNTbdhZzEz6qO4BFJS vCQkLVHAY3VS8EuGOnAF6EuBHDI4OngQSxGs9qUBmg pTOlbF9iTc7mDGdaHL3QKxEOKSlXYXV2OB9BoPXlTR7QpOEDB9EngBIdDt9bVLzwoLMmxm8+GA4OVUIg Sz0AEz3+FHlhnvKrMblDGkY6HALgu2CxCSy3UI1XZB3kyOzmTGQ9Pm8HuMD9tGEiF9oLRU5GbZYxL39o tKKfLRJhOs7BHoU2deQfoE0XXK25lWFhw1U9KHDlL1 zsHMdiq48sPAqaTKsOBU2oZSELAOmzPWhlIEL4WnQwddvzHSTdOi7OVlAlFWu8xM5ocSJ7DZT8IcdnyS ZzMPnxTpImEmOtMuJ8xNbiqwa4TByeOD1lVXwzdalcXNCgAlr+LQkdEWTbJZOoOjsXAWIomE3imdM4qy FpBYrcvLKeFp7md5i4NxqkWf7rPy7bXMf9FsDvEpGv ZBKpSm9fzU74KDoleaZoVg4KZyNxBFR9D0LyZolZAXF+VBnvMEiecYc2tQVoFVYoYg0NYTHgRFKmMDPn ICAgICAgICAgICAgICAgICAgICAgICAgICAgICAgICAgICAgICAgICAgICAgICAgICAgICAgICAgICAg ICAgICAgICAgICAgICAgICAgICAgICAgICAgICAgIA 0KICAgICAgICAgICAgICAgICAgICAgICAgICAgICAgICAgICAgICAgICAgICAgICAgICAgICAgICAgIC ThWBXwCJNmCLDoWUXjGCOyKSTgFKNcJALiLROgISFdZIOyIGWnLEUxJJ1ICHXdWQBzUKKpPCUhFAZsBU AgICAgICAgICAgICAgICAgICAgICAgICAgICAgICAg NKCoODFsFNUqBONpFXZkHJGfDVFaILLjWDMlVHRjHIQkHPJhACPqHOMxYHItOYSmYMXuOL4MINToXCXs ICAgICAgICAgICAgICAgICAgICAgICAgICAgICAgICAgICAgICAgICAgICAgICAgICAgICAgICAgICAg ICAgICAgICAgICAgICAgICAgICAgICAgICAgICAgIC HnPR4XXHPnOOFbASSfCONfVHRzWOCgSIRqXZMcAJOnENEvWSAuTEQxEUKiLWKtPLAzNRRwQDIbVQQhCM NyYWCbAWNdNWJbHJGdVSXuINJwRRQjDWRmXMJyONTuJNXnHWWyMVMtLIQjLQ7IJSHeJVYjARRiSEPaSE AgICAgICAgICAgICAgICAgICAgICAgICAgICAgICAg RIEoRTBtSBFsHIRaWAIxRMIwWKPxVKEkAXTtXFJbYJPvBDQzLSNiWCOaXMRnMTSfFYZfOARvEQ5XAFFs ICAgICAgICAgICAgICAgICAgICAgICAgICAgICAgICAgICAgICAgICAgICAgICAgICAgICAgICAgICAg ICAgICAgICAgICAgICAgICAgICAgICAgICAgICAgIC VzQCWiXY4WRCYjONLwJZUoGYUeYAHsYFByFFIhGQKhTYEeXJElXUJiDFJvJFQfFUSvDZKoJBItRHKbIJ YvKTYqQUBuBGEbFAWzBHKzDQGvUPWrWYShBELjZDKnRNBoFUCkVEQbVLObFWJaQY3OVYWrVPFoHMCcVR AgICAgICAgICAgICAgICAgICAgICAgICAgICAgICAg JAIzDWJqWMFpZIPeCKMxFWPtYVZwBSQoHIHzDVUyNLSgJGQuFTQuSKVpYZBxYVTjERTnQFQbEFMiSY1G ICAgICAgICAgICAgICAgICAgICAgICAgICAgICAgICAgICAgICAgICAgICAgICAgICAgICAgICAgICAg ICAgICAgICAgICAgICAgICAgICAgICAgICAgICAgIC HvEAQnYJHoLZ6RAW96qMOcd2U9MXIhHL2mjcb/Lg0AYMktozSrmJQxUT4LGvObCS8nff1VBpSuEI7hxo 9ITSoEEbGkB2R3wURfOTVnCONIFbPaZ35hJOxaYp61USikAZLfIoQsTNd0Sh9ZTrHkO5ehJKBqHfM7TZ ShBmYyUNnzKZ2Ck4MxzWMtUDe+Af6JVS9uw3WeJJtv NDPsCT1chd8CTFfYQvMvT4CdndQ1ZYAwRASsRs0OWSFcUJEvuTXkDGIzOFVXOrLfB6AhxQ10SBFWDx0+ ZMsbskNcSifCWsTiSWDea0CyQBu8OP3KKBIrTUe3gUIdVUTpA3Iiy3GgFj69PPTeKuflSmDfpyArEDDN ZEGcaAKfhkdrNEFyCOAmLg6gWw5pQBJjWEXcJhS8IO GORG4YLWYgJANshWHpOVTdWKGINK2HVIjhVDG8TLZhkdGqpKNuOTobCC8NLQXneeGeZIeeAFXZAQi+Pg 1WTV8uj9OmUAjyZTZcOU2olj1ZJXzBPoFgP3C5iUMxC8G8LUyaIp7FQKSjQNCoEMfbFCUDSWzsJP2MIN 5cztU2CW1MyMTwHUVrKFXciRElUXu9N74orTGsLHid MC8GOAC+Rambo+Qg6MKTJoCAZkISAeUiSvIWSVCoFfC0TmB6IJp8BoY9QaJO61oLrxxzHhSVmbSL7PNL8a DQVpTYUUZN7LqCPxlQ6mojGbAEXgVEIVLuYgB29rqPWoSCZiDXH3SUFpIy5IMZZhM1VzucDjvPvpymQx IBYoXQKBFQ3XNBuuepBplWWmcYmrEZ39qGekTB7RQt 1XBlLoTW3mpv8KdTPaVo1YBYDtTg5OTSKdWOClEVWxIZE3ZFRxAxCzUKwdFBLfRPBsHNF2URAeLIYzDX 5NGeImOFGfLJL7XhyiNJExBVYaoo2MPOKhLXVrXUD8NiWkZYVpWAYtRBehFRBuYVRnYNT5CNYmWCEeLJ 2PIlJrJCNnZBK5MIDtAGYcMENbqt5RBBBpQZXoUQy6 ZXIpDLNxYBHbUMmvDFPeGVOoWKS9MXSoCHAhIS5DBeKqWNBbJJAuUOQgOIOpEPGvlb7JCWFzHEQuGsEr UHKdOIJxRLLlMKugJVEvBQX0IqjuFUWnIVDaTK1OAxGfCQJlIPW0GETeYNHhLPYwdq0STHIdACZeTVZ4 NRSxTFMbURBqPLrqLKXtIBR4EFK4TOBdYHUiID5ONj IjTJOjCYOzWTPkZGEzVPPzxa9RKYMqFFVhLqC1APOyEIOqXLUgCRtwDWAtMKG0WSYzTBRyKOXnKI5PDp AaJRWkZFM5NMjlPILlCMFbyh0OSDTqOUChCvQ2DcKlJUUjHBDvOEyaNAIvGDO4Tvu0OUGiBUFrNN4AJa PyBHFqQKg6DRZxQLDqWUKumu0BBKBaKQKtCPOpAcBk QTZeYFDpGXq4uvGfdRCfABh1XO4XU6ZqroLaNqYWLs5Dk172PZInIEKzQk8TM9nnNe0oVESxJTVTVy0Y GUh1MFsrMlM9JHguURBgRjR7YtcdEnm2Mvk1GVFpVBCdOQA+XNyfFQPoMzkbPVYvWmJrVJAoFVH6TBqo ONJ8FJL5L0W3Fu5rPBPMDg7+ABqtkPOuhKmbJAMCAcB9MtHbXDjrGTQVIs4W ID Date Data Source [id number] 04/17/2019 02:29:53 PM [facility] Name Value Range Interpretation Code Description Data Jing rce(s) Supporting Document(s) Progress Note [facility] MJGPVh9jOyRWYgJv12/DTBgrRESoe5VsKAcsCXz1PTpjWFZyV8MsALY2qY5jJGV1DUaXMwAaOtItGuIc lbm [file] lm5Z0LaqVu1Ksv2XSWat957bb774s5XB+8y1Z1b1cG rwswvB3PwbccYu3Vlgxh9X0U4XEoYnYVwfZuKmGo/txjoN+ueJaLmtE84ndRoNypZDfEwJ6VzaWwLxEX CycdW7Od2HlP86prpvkVFNEcHTLlf8HmEqG8F8LBVfgh1smnh8/fIp0GkIkxkqV65QJ/JZDa+w9Tgc09 eOdHcbR8dYLz0M+5Bwq9+r0YnqHG2A/Vivian+lwxp7gn YSMbchn4wzXZLvCJ3ky+5+xTd9cAWJyxdgL8w6ng8FCFVq2C/otarwxAPNsgZ+41l58bePLlgS5oY7Lx Mn3I1qE57/K5xijpW6J6ct88C1D4YgWkNy48s4IsZagPhdsWG204vxG5WRV43H72yD+2yvWKXdC27ED7 oOQEwPXQhOoCzff1m5u4VoLNBHZ54PI5krpSvBVzW7 XVW3eAqZS7Z/pG9XiscVoc3po7/Hucbss73vNkdK+jfnshMoejNVrcOpMSx6ago3tOxL0wleO9nwOM6c wzQkt6Ow77X4UX4BisUeq9NORqOIA4jfxdh0pS9oMbQSv/ViPW8B1M30I7hcLKW9kghfD9Ykk8BWX8QS ES7r9Z2SYRclC51zu+3zx8JmtzkMtlbX/VPGJn7PYF RIjF0LUOSn+jn/32Os92OrI4IqtEDICu63StVwc7gBIly5Vyd0KT/Ibiql49vWPM1Dx4Y+BRgg1TmNwZ Renée/CzoDt9JEL1k8fXoumt6Yr7Y/PgqT3cYg+j7CZkM/vYEgz4TwXf70Dla9urjz7jhNodsk8o/RNqLs [file] XTofBnrmDAE7KQ1rRXNXNz1+ZUcngHEyeMpzCUZVZyJ5VAFdKYwbJAFLPv4G ID Date Data Source [id number] 04/18/2019 05:58:29 PM [facility] Name Value Range Interpretation Code Description Data Jing rce(s) Supporting Document(s) Protein [Mass/volume] in Serum or Plasma 6.8 g/dL 6.4-8.3 [facility] Albumin [Mass/volume] in Serum or Plasma by Electrophoresis 5.21 g/dL 3.80-5.78 [facility] Alpha 1 globulin [Mass/volume] in Serum or Plasma by Electro phoresis 0.13 g/dL 0.08-0.23 [facility] Alpha 2 globulin [Mass/volume] in Serum or Plasma by Electro phoresis 0.64 g/dL 0.45-0.92 [facility] Beta globulin [Mass/volume] in Serum or Plasma by Electropho resis 0.74 g/dL 0.50-1.03 [facility] Gamma globulin [Mass/volume] in Serum or Plasma by Electroph oresis 0.88 g/dL 0.54-1.30 [facility] Protein.monoclonal [Mass/volume] in Serum or Plasma by Electrophoresi s 0 [facility] Protein Fractions [Interpretation] in Serum or Plasma by Electropho [facility] PATHOLOGIST:ARELY LERMA MD ID Date Data Source [id number] 04/17/2019 03:17:47 PM [facility] Name Value Range Interpretation Code Description Data Jing rce(s) Supporting Document(s) Flow cytometry study [facility] ID Date Data Source [id number] 04/17/2019 02:20:07 PM [facility] Name Value Range Interpretation Code Description Data Jing rce(s) Supporting Document(s) Leukocytes [#/volume] in Blood by Automated count 9.2 10*3/uL 4-10 [facility] Erythrocytes [#/volume] in Blood by Automated count 4.53 10*6/uL 4.6- 6.1 L [facility] Hemoglobin [Mass/volume] in Blood 14.7 g/dL 13.5-18 [facility] Hematocrit [Volume Fraction] of Blood by Automated count 43.1 % 4 1-53 [facility] Erythrocyte mean corpuscular volume [Entitic volume] by Auto mated count 95.1 fL 80-96 [facility] Erythrocyte mean corpuscular hemoglobin [Entitic mass] by Automated count 32.5 pg 27-33 [facility] Erythrocyte mean corpuscular hemoglobin concentration [Mass/volume] by Automated count 34.2 g/dL [facility].0-[facility] distribution width [Ratio] by Automated count 13.1 % 11.5-14.5 [facility] Platelets [#/volume] in Blood by Automated count 177 10*3/uL 150-400 [facility] Differential cell count method - Blood [facility] Neutrophils/100 leukocytes in Blood by Automated count 49 % [facility] Lymphocytes/100 leukocytes in Blood by Automated count 34 % [facility] Monocytes/100 leukocytes in Blood by Automated count 9 % [facility] Eosinophils/100 leukocytes in Blood by Automated count 7 % [facility] Basophils/100 leukocytes in Blood by Automated count 1 % [facility] Neutrophils [#/volume] in Blood by Automated count 4.53 10*3/uL 1.8-7 .0 [facility] Lymphocytes [#/volume] in Blood by Automated count 3.13 10*3/uL 1.2-4 .0 [facility] Monocytes [#/volume] in Blood by Automated count 0.85 10*3/uL 0-0.8 H [facility] Eosinophils [#/volume] in Blood by Automated count 0.60 10*3/uL 0-0.5 [facility] Basophils [#/volume] in Blood by Automated count 0.06 10*3/uL 0-0.2 [facility] Nucleated erythrocytes/100 leukocytes [Ratio] in Blood by Automated count 0 /100{WBCs} 0-0 [facility] ID Date Data Source [id number] 04/17/2019 02:48:19 PM [facility] Name Value Range Interpretation Code Description Data Jing rce(s) Supporting Document(s) Lactate dehydrogenase [Enzymatic activit y/volume] in Serum or Plasma by Lactate to pyruvate reaction 195 U/L 122-225 [facility] ID Date Data Source [id number] 04/18/2019 03:52:00 PM [facility] Hematopathology Report See Addendum Eric Hernandez: YUDELKA RAMIREZ: [id number] Number: [id number] Date: 04/17/2019 00:00Received Date: 04/17/2019 14:28Physician(s): CORNELIO [...] rendered thefinal diagnosis. Addendum 04/23/2019 Molecular report [id number] shows four faint to moderately bright clonalbands in an oligoclonal background. These bands are different in sizefrom those present in 2018 and 2019. 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 The current oligoclonal pattern suggests a reactiveprocess. Addendum Electronically Signed By: Lisseth Villa M.D. 04/23/2019 11:39 ProceduresFlow Cytometry Date Ordered:04/17/2019 Status: Signed Out04/18/2019 InterpretationPERIPHERAL BLOOD: CBC performed at [facility] #[id number](04/17/19)WBC 9.2 K/uLRBC *4.53 M/uLHgb 14.7 g/dLHct 43.1 %MCV 95.1 fLMCH 32.5 pgMCHC 34.2 g/dLRDW 13.1 %MPV 8.2 fLPlatelets 177 K/ulDifferential Count (automated):49 % Neutrophils 7 % Eosinophils 1 % Pasdzxbmm73 % Lymphocytes 9 % Monocytes-------100 % A peripheral blood film is reviewed. Rare small lymphocytes with slightlyirregular nuclear contours are seen. Lymphoid Panel: Ashley Ybarra [id number] following markers were assayed: CD45 (gate), CD2, CD3, CD4, CD5, CD7,CD8, CD10, CD19, CD20, CD38, CD56, CD57, Maceo, and Lambda.# events: [id number]: 96%Flow Cytometry Differential (CD45/SSC)Lymphocyte Langston: 34%CD45 dim Langston: 0%Monocyte Langston: 5%Granulocyte Langston: 59%Nucleated/Erythroid Langston: 1%The lymphocyte gate showsB- cells (CD19): 7%T-cells (CD3): 71%NK-cells (CD3-/CD56+): 16%Maceo/Lambda Ratio: 2.1CD4/CD8 Ratio: 0.5Results: (expressed as % of lymphocyte gate)T-cell Markers: CD2 = 79, CD3 = 71, CD3/CD4 = 24, CD3/CD8 = 44, CD5 = 60,CD7 = 80, CD3/57 = 21B- cell markers: Maceo = 5, Lambda = 2, CD19 = 7, CD20 = 17, CD19/10 = 0,CD19/CD5 = 0, CD38/CD20 = 10Light chain as % of B-Cells: CD19/Maceo = 63, CD19/Lambda = 32CD19/CD5/Maceo = 0, CD19/CD5/Lambda = 0CD19/CD10/Maceo = 2, CD19/CD10/Lambda = 0NK cell Markers: [...] were developed and theirperformance characteristics determined by [facility] Pathology department.They have not been cleared or approved by the US Food and DrugAdministration. The FDA has determined that such clearance or approval isnot necessary. Name Value Range Interpretation Code Description Data Jing rce(s) Supporting Document(s) ID Date Data Source [id number] 04/22/2019 03:41:00 PM [facility] Molecular Diagnostics ReportName: ASHLEYYUDELKA SILVA: [id number] Number: [id number] Date: 04/17/2019 00:00Received Date: 04/18/2019 15:32Physician(s): CORNELIO FLETCHER BERNARD JCopy T o:CHRISTINA STINSON BRENT ASpecimen(s) ReceivedA: Peripheral Blood - T-cell, [id number] OF STUDY: T-cell Receptor Gamma Chain Gene - PCR AssaySPECIMEN TYPE: Peripheral Blood (#[id number])RESULTS: Positive Family I & III / J [...] Gamma Chain gene (van Randallen et al. Naxzvwif70:2257- 2317, 2003). A positive result is expected [...] validated and authorized for clinical useby the [facility] ([facility]). rochelle/tao Electronically Signed By Etienne Mcconnell, Ph.D., DABMGG, [facility] MolecularGeneticist 04/22/2019 15:41:46 Name Value Range Interpretation Code Description Data Jing rce(s) Supporting Document(s) Procedure Social History Code Duration Value Status Description Data Source(s ) Smoking 04/29/2020 12:00:00 AM EST Never Smoker completed Never S shaina eCW1 ([facility]) Smoking 04/20/2020 12:00:00 AM EST Unknown if ever smoked comp leted Unknown if ever smoked [facility] ([facility]) Smoking 03/23/2020 12:00:00 AM EST Unknown if ever smoked comp leted Unknown if ever smoked [facility] ([facility]) Smoking 03/03/2020 12:00:00 AM EST Never Smoker completed Never S moker eCW1 ([facility]) Smoking 03/03/2020 12:00:00 AM EST Never Smoker completed Never S moker eCW1 ([facility]) Smoking 03/03/2020 12:00:00 AM EST Never Smoker completed Never S moker eCW1 ([facility]) Smoking 03/03/2020 12:00:00 AM EST Never Smoker completed Never S moker eCW1 ([facility]) Smoking 03/03/2020 12:00:00 AM EST Never Smoker completed Never S moker eCW1 ([facility]) Smoking 03/03/2020 12:00:00 AM EST Never Smoker completed Never S moker eCW1 ([facility]) Smoking 03/03/2020 12:00:00 AM EST Never Smoker completed Never S moker eCW1 ([facility]) Smoking 03/03/2020 12:00:00 AM EST Never Smoker completed Never S moker eCW1 ([facility]) Smoking 02/24/2020 12:00:00 AM EST Unknown if ever smoked comp leted Unknown if ever smoked [facility] Smoking 01/27/2020 12:00:00 AM EST Unknown if ever smoked comp leted Unknown if ever smoked [facility] ([facility]) Smoking 12/30/2019 12:00:00 AM EDT Unknown if ever smoked comp leted Unknown if ever smoked [facility] ([facility]) Smoking 12/02/2019 12:00:00 AM EDT Unknown if ever smoked comp leted Unknown if ever smoked [facility] ([facility]) Smoking 11/27/2019 12:00:00 AM EDT Unknown if ever smoked comp leted Unknown if ever smoked [facility] ([facility]) Alcohol intake 10/20/2019 12:00:00 AM EDT Current non-d leah of alcohol (finding) completed Current non-drinker of alcohol (finding) [facility] Tobacco use and exposure 10/20/2019 12:00:00 AM EDT Never used co mpleted Never used [facility] Smoking 10/20/2019 12:00:00 AM EDT Never smoker completed Never s [facility] Smoking 09/09/2019 12:00:00 AM EDT Never Smoker completed Never S moker eCW1 ([facility]) Smoking 09/09/2019 12:00:00 AM EDT Never Smoker completed Never S moker eCW1 ([facility]) Smoking 09/09/2019 12:00:00 AM EDT Never Smoker completed Never S moker eCW1 ([facility]) Smoking 09/09/2019 12:00:00 AM EDT Never Smoker completed Never S moker eCW1 ([facility]) Smoking 09/09/2019 12:00:00 AM EDT Never Smoker completed Never S moker eCW1 ([facility]) Smoking 08/19/2019 12:00:00 AM EDT Patient has never smoked co mpleted Patient has never smoked [facility] ([facility]) Smoking 08/04/2019 12:00:00 AM EDT Unknown if ever smoked comp leted Unknown if ever smoked [facility] ([facility]) Smoking 07/07/2019 12:00:00 AM EDT Unknown if ever smoked comp leted Unknown if ever smoked [facility] ([facility]) Smoking 06/27/2019 12:00:00 AM EDT Unknown if ever smoked comp leted Unknown if ever smoked [facility] ([facility]) Smoking 06/09/2019 12:00:00 AM EDT Unknown if ever smoked comp leted Unknown if ever smoked [facility] ([facility]) Alcohol intake 04/17/2019 12:00:00 AM EST Current non-d leah of alcohol (finding) completed Current non-drinker of alcohol (finding) [facility] Smoking 04/17/2019 12:00:00 AM EST Never smoker completed Never s [facility] Smoking 04/14/2019 12:00:00 AM EST Unknown if ever smoked comp leted Unknown if ever smoked [facility] ([facility]) Smoking 03/21/2019 12:00:00 AM EST Unknown if ever smoked comp leted Unknown if ever smoked [facility] ([facility]) Vital Signs ID Date Data Source UNK Name Value Range Interpretation Code Description Data Source(s) Diastolic blood pressure 0 mm[Hg] Normal (applies to non-numeric results) 0 mm[Hg] [facility] ([facility]) Systolic blood pressure 0 mm[Hg] Normal (applies t o non-numeric results) 0 mm[Hg] [facility] ([facility]) Body mass index (BMI) [Ratio] 0.00 kg/m2 No rmal (applies to non-numeric results) 0.00 [facility] Body weight Measured 0.00 lbs Normal (applies to n on-numeric results) 0.00 lbs [facility] ([facility]) Body height 0.00 in Normal (applies to non-numeric resu lts) 0.00 in [facility] ([facility]) Diastolic blood pressure 0 mm[Hg] Normal (applies to non-numeric results) 0 mm[Hg] [facility] ([facility]) Systolic blood pressure 0 mm[Hg] Normal (applies t o non-numeric results) 0 mm[Hg] [facility] ([facility]) Body mass index (BMI) [Ratio] 0.00 kg/m2 No rmal (applies to non-numeric results) 0.00 kg/m2 [facility] ([facility]) Body weight Measured 0.00 lbs Normal (applies to n on-numeric results) 0.00 lbs [facility] ([facility]) Body height 0.00 in Normal (applies to non-numeric resu lts) 0.00 in [facility] ([facility]) Diastolic blood pressure 82 mm[Hg] 82 mm[Hg] eCW1 ([facility]) Systolic blood pressure 130 mm[Hg] 130 mm[Hg] e CW1 ([facility]) Body temperature 96.9 [degF] 96.9 [degF] eCW1 ( [facility]) Respiratory rate 18 /min 18 /min eCW1 ([facility]) Heart rate 89 /min 89 /min eCW1 ([facility] Body mass index (BMI) [Ratio] 41.96 kg/m2 41.96 kg/m2 eCW1 ([facility]) Body height 68 [in_i] 68 [in_i] eCW1 ([facility]) Body weight 276 [lb_av] 276 [lb_av] eCW1 ([facility]) Diastolic blood pressure 82 mm[Hg] 82 mm[Hg] eCW1 ([facility]) Systolic blood pressure 130 mm[Hg] 130 mm[Hg] e CW1 ([facility]) Body temperature 96.9 [degF] 96.9 [degF] eCW1 ( [facility]) Respiratory rate 18 /min 18 /min eCW1 ([facility]) Heart rate 89 /min 89 /min eCW1 ([facility]) Body mass index (BMI) [Ratio] 41.96 kg/m2 41.96 kg/m2 eCW1 ([facility]) Body height 68 [in_i] 68 [in_i] eCW1 ([facility]) Body weight 276 [lb_av] 276 [lb_av] eCW1 ([facility]) Diastolic blood pressure 0 mm[Hg] Normal (applies to non-numeric results) 0 mm[Hg] [facility] ([facility]) Systolic blood pressure 0 mm[Hg] Normal (applies t o non-numeric results) 0 mm[Hg] [facility] Body mass index (BMI) [Ratio] 0.00 kg/m2 No rmal (applies to non-numeric results) 0.00 kg/m2 [facility] ([facility]) Body weight Measured 0.00 lbs Normal (applies to n on-numeric results) 0.00 lbs [facility] Body height 0.00 in Normal (applies to non-numeric resu lts) 0.00 in [facility] ([facility]) Diastolic blood pressure 0 mm[Hg] Normal (applies to non-numeric results) 0 mm[Hg] [facility] ([facility]) Systolic blood pressure 0 mm[Hg] Normal (applies t o non-numeric results) 0 mm[Hg] [facility] ([facility]) Body mass index (BMI) [Ratio] 0.00 kg/m2 No rmal (applies to non-numeric results) 0.00 kg/m2 [facility] ([facility]) Body weight Measured 0.00 lbs Normal (applies to n on-numeric results) 0.00 lbs [facility] ([facility]) Body height 0.00 in Normal (applies to non-numeric resu lts) 0.00 in [facility] ([facility]) Diastolic blood pressure 0 mm[Hg] Normal (applies to non-numeric results) 0 mm[Hg] [facility] ([facility]) Systolic blood pressure 0 mm[Hg] Normal (applies t o non-numeric results) 0 mm[Hg] [facility] ([facility]) Body mass index (BMI) [Ratio] 0.00 kg/m2 No rmal (applies to non-numeric results) 0.00 kg/m2 [facility] ([facility]) Body weight Measured 0.00 lbs Normal (applies to n on-numeric results) 0.00 lbs [facility] ([facility]) Body height 0.00 in Normal (applies to non-numeric resu lts) 0.00 in [facility] ([facility]) Diastolic blood pressure 0 mm[Hg] Normal (applies to non-numeric results) 0 mm[Hg] [facility] ([facility]) Systolic blood pressure 0 mm[Hg] Normal (applies t o non-numeric results) 0 mm[Hg] [facility] ([facility]) Body mass index (BMI) [Ratio] 0.00 kg/m2 No rmal (applies to non-numeric results) 0.00 kg/m2 [facility] ([facility]) Body weight Measured 0.00 lbs Normal (applies to n on-numeric results) 0.00 lbs [facility] ([facility]) Body height 0.00 in Normal (applies to non-numeric resu lts) 0.00 in [facility] ([facility]) Respiratory rate 20 /min 20 /min [facility] ( [facility] ) Heart rate 76 /min 76 /min [facility] ([facility] ) Diastolic blood pressure 80 mm[Hg] 80 mm[Hg] [facility] ([facility] ) Systolic blood pressure 124 mm[Hg] 124 mm[Hg] M EDENT ([facility] ) Diastolic blood pressure 80 mm[Hg] 80 mm[Hg] eCW1 ([facility]) Systolic blood pressure 128 mm[Hg] 128 mm[Hg] e CW1 ([facility]) Body temperature 97.3 [degF] 97.3 [degF] eCW1 ( [facility]) Respiratory rate 20 /min 20 /min eCW1 ([facility]) Heart rate 78 /min 78 /min eCW1 ([facility] Body mass index (BMI) [Ratio] 41.44 kg/m2 41.44 kg/m2 eCW1 ([facility]) Body height 68 [in_i] 68 [in_i] eCW1 ([facility]) Body weight 272.6 [lb_av] 272.6 [lb_av] eCW1 ([facility]) Diastolic blood pressure--sitting 78 mm[Hg] 78 mm[Hg] [facility] ([facility]) large cuff, Ra Systolic blood pressure--sitting 130 mm[Hg] 130 mm[Hg] [facility] ([facility]) large cuff, Ra Heart rate 66 /min 66 /min [facility] ([facility] Body mass index (BMI) [Ratio] 40.0 kg/m2 40.0 k g/m2 [facility] ([facility]) Body height 69 [in_i] 69 [in_i] [facility] ([facility] [place]) 5'9" Body weight 271.00 [lb_av] 271.00 [lb_av] MEDEN T ([facility]) Diastolic blood pressure 0 mm[Hg] Normal (applies to non-numeric results) 0 mm[Hg] [facility]umed[facility] ([facility]) Systolic blood pressure 0 mm[Hg] Normal (applies t o non-numeric results) 0 mm[Hg] [facility] ([facility]) Body mass index (BMI) [Ratio] 0.00 kg/m2 No rmal (applies to non-numeric results) 0.00 kg/m2 [facility] ([facility]) Body weight Measured 0.00 lbs Normal (applies to n on-numeric results) 0.00 lbs [facility] ([facility]) Body height 0.00 in Normal (applies to non-numeric resu lts) 0.00 in [facility] ([facility]) Diastolic blood pressure 72 mm[Hg] 72 mm[Hg] eCW1 ([facility]) Systolic blood pressure 130 mm[Hg] 130 mm[Hg] e CW1 ([facility]) Body temperature 98.0 [degF] 98.0 [degF] eCW1 ( [facility]) Respiratory rate 20 /min 20 /min eCW1 ([facility]) Heart rate 83 /min 83 /min eCW1 ([facility] Body mass index (BMI) [Ratio] 41.14 kg/m2 41.14 kg/m2 W1 ([facility]) Body height 68 [in_us] 68 [in_us] eCW1 ([facility]) Body weight Measured 270.6 [lb_av] 270.6 [lb_av ] eCW1 ([facility]) Diastolic blood pressure 0 mm[Hg] Normal (applies to non-numeric results) 0 mm[Hg] [facility] ([facility]) Systolic blood pressure 0 mm[Hg] Normal (applies t o non-numeric results) 0 mm[Hg] [facility]) Body mass index (BMI) [Ratio] 0.00 kg/m2 No rmal (applies to non-numeric results) 0.00 kg/m2 [facility] ([facility]) Body weight Measured 0.00 lbs Normal (applies to n on-numeric results) 0.00 lbs [facility] ([facility]) Body height 0.00 in Normal (applies to non-numeric resu lts) 0.00 in [facility] ([facility]) Diastolic blood pressure 0 mm[Hg] Normal (applies to non-numeric results) 0 mm[Hg] [facility] ([facility]) Systolic blood pressure 0 mm[Hg] Normal (applies t o non-numeric results) 0 mm[Hg] [facility] ([facility]) Body mass index (BMI) [Ratio] 0.00 kg/m2 No rmal (applies to non-numeric results) 0.00 kg/m2 [facility] ([facility]) Body weight Measured 0.00 lbs Normal (applies to n on-numeric results) 0.00 lbs [facility] ([facility]) Body height 0.00 in Normal (applies to non-numeric resu lts) 0.00 in [facility] ([facility]) Diastolic blood pressure 0 mm[Hg] Normal (applies to non-numeric results) 0 mm[Hg] [facility] ([facility]) Systolic blood pressure 0 mm[Hg] Normal (applies t o non-numeric results) 0 mm[Hg] [facility] ([facility]) Body mass index (BMI) [Ratio] 0.00 kg/m2 No rmal (applies to non-numeric results) 0.00 kg/m2 [facility] ([facility]) Body weight Measured 0.00 lbs Normal (applies to n on-numeric results) 0.00 lbs [facility] ([facility]) Body height 0.00 in Normal (applies to non-numeric resu lts) 0.00 in [facility] ([facility]) Diastolic blood pressure 84 mm[Hg] 84 mm[Hg] eCW1 ([facility]) Systolic blood pressure 128 mm[Hg] 128 mm[Hg] e CW1 ([facility]) Body temperature 97.1 [degF] 97.1 [degF] eCW1 ( [facility]) Respiratory rate 20 /min 20 /min eCW1 ([facility]) Heart rate 68 /min 68 /min eCW1 ([facility]) Body mass index (BMI) [Ratio] 40.53 kg/m2 40.53 kg/m2 W1 ([facility]) Body height 68 [in_us] 68 [in_us] eCW1 ([facility]) Body weight Measured 266.6 [lb_av] 266.6 [lb_av ] eCW1 ([facility]) Respiratory rate 16 /min 16 /min MEDENT ( [facility] ) Heart rate 76 /min 76 /min MEDENT ([facility], ) Diastolic blood pressure 80 mm[Hg] 80 mm[Hg] MEDENT ([facility], ) Systolic blood pressure 118 mm[Hg] 118 mm[Hg] M EDENT ([facility], ) Diastolic blood pressure 82 mm[Hg] 82 mm[Hg] eCW1 ([facility]) Systolic blood pressure 130 mm[Hg] 130 mm[Hg] e CW1 ([facility]) Body temperature 98.0 [degF] 98.0 [degF] eCW1 ( [facility]) Respiratory rate 18 /min 18 /min eCW1 ([facility]) Heart rate 89 /min 89 /min eCW1 ([facility]) Body mass index (BMI) [Ratio] 41.05 kg/m2 41.05 kg/m2 eCW1 ([facility]) Body height 68 [in_us] 68 [in_us] eCW1 ([facility]) Body weight Measured 270.0 [lb_av] 270.0 [lb_av ] eCW1 ([facility]) ID Date Data Source [id number] 04/29/2020 04:32:49 PM [facility] Name Value Range Interpretation Code Description Data Source(s) WEIGHT RECORDED 273 lb 273 lb [facility] ID Date Data Source [id number] 10/22/2019 10:45:[facility] Name Value Range Interpretation Code Description Data Source(s) WEIGHT RECORDED 269 lb 269 lb [facility] ID Date Data Source [id number] 04/23/2019 11:39:23 AM EST [facility] Name Value Range Interpretation Code Description Data Source(s) WEIGHT RECORDED 271.6 lb 271.6 lb [facility] Patient Treatment Plan of Care Planned Activity Planned Date Details Description Data Source (s) sildenafil 50 MG Oral Tablet 04/29/2020 12:00:00 AM EST eCW1 ([facility]) Fluticasone Propionate 50 MCG/ACT 03/03/2020 12:00:00 AM EST eCW1 ([facility]) Fluticasone Propionate 50 MCG/ACT 03/03/2020 12:00:00 AM EST eCW1 ([facility]) Fluticasone Propionate 50 MCG/ACT 03/03/2020 12:00:00 AM EST eCW1 ([facility]) Fluticasone Propionate 50 MCG/ACT 03/03/2020 12:00:00 AM EST eCW1 ([facility]) Fluticasone Propionate 50 MCG/ACT 03/03/2020 12:00:00 AM EST eCW1 ([facility]) Fluticasone Propionate 50 MCG/ACT 03/03/2020 12:00:00 AM EST eCW1 ([facility]) Fluticasone Propionate 50 MCG/ACT 03/03/2020 12:00:00 AM EST eCW1 ([facility]) Fluticasone Propionate 50 MCG/ACT 03/03/2020 12:00:00 AM EST eCW1 ([facility]) Docusate Sodium 100 MG Oral Capsule [Colace] 03/31/2019 12:00:00 AM EST eCW1 ([facility]) Hydroxyzine Hydrochloride 50 MG Oral Tablet 03/31/2019 12:00:00 AM EST eCW1 ([facility])
[2020-04-30] MEDS ORDERED: AMMO12CR7 TOP (03:46)
[2020-04-30] MEDS ORDERED: KETO2CR EXT (03:46)
[2020-04-30] MEDS ORDERED: TUMS750C5 PO (03:46)
[2020-04-30] MEDS ORDERED: NAPR500T6 PO (03:46)
--- OUTSIDE RECORDS SUMMARY | 2020-04-30 04:04 | CCD ---
Author Author [facility] Organization [facility] Address Unknown Phone Unavailable Care Team Providers Care Fundraising Specialist Name Role Phone Mariann NOEL MD Unavailable [...] D NIEVES MD Unavailable Unavailable KACHARE, D NIEEVS MD Unavailable Unavailable KACHARE, D NIEVES MD [...] Unavailable RICHELIUS WINSTON, ANTHONY Unavailable Unavailable Acosta, La Jara Miriam Unavailable Unavailable Acosta, La Jara Miriam Unavailable Unavailable Acosta, La Jara Miriam Unavailable Unavailable Acosta, La Jara Miriam Unavailable Unavailable Acosta, La Jara Miriam Unavailable Unavailable Acosta, La Jara Miriam Unavailable Unavailable Acosta, La Jara Miriam Unavailable Unavailable Acosta, La Jara Miriam Unavailable Unavailable Acosta, La Jara Miriam Unavailable Unavailable Acosta, La Jara Miriam Unavailable Unavailable Mariann Jose MD Unavailable [...] ANDREA MD Unavailable Unavailable ALOK, H MARYAM NETWORK SYSTEMS ADMINISTRATOR Unavailable Unavailable ALOK, H MARYAM NETWORK SYSTEMS ADMINISTRATOR Unavailable Unavailable ALOK, H MARYAM NETWORK SYSTEMS ADMINISTRATOR Unavailable Unavailable ALOK, H MARYAM NETWORK SYSTEMS ADMINISTRATOR Unavailable Unavailable ALOK, H MARYAM NETWORK SYSTEMS ADMINISTRATOR Unavailable Unavailable ALOK, H MARYAM NETWORK SYSTEMS ADMINISTRATOR Unavailable Unavailable ALOK, H MARYAM NETWORK SYSTEMS ADMINISTRATOR Unavailable Unavailable ALOK, H MARYAM NETWORK SYSTEMS ADMINISTRATOR Unavailable Unavailable SherinehCung cash MD Unavailable Unavaila violeta WashingtonChung MD Unavailable Unavaila violeta WashingtonChung MD Unavailable Unavaila violeta WashingtonChung MD Unavailable Unavaila violeta WashingtonChung MD Unavailable Unavaila violeta WashingtonChung MD Unavailable Unavaila violeta WashingtonChung MD Unavailable Unavaila violeta SherineChung cash MD Unavailable Unavaila violeta WashingtonChung MD Unavailable Unavaila ble Paulino Fletcher Unavailable [...] is protected by Article 27-F of the [facility] Public Health law. If you continue you may have access to information: Regarding HIV / AIDS; Provided by facilities licensed or operated by the [facility] Office of Mental Health; or Provided by the [facility] Office for People With Developmental Disabilities. If such information is present, then the following [facility] mandated warning applies: This information has [...] law may result in a fine or chcf sentence or both. A general authorization for the release of medical or other information is NOT sufficient authorization for further disc losure. Allergies and Adverse Reactions Type Description Substance Reaction Status Data Source(s ) DRUG INGREDI THIORIDAZINE THIORIDAZINE [facility] DRUG INGREDI HALOPERIDOL HALOPERIDOL [facility] SYSTEMIC NO ALLERGIES ON FILE NO ALLERGIES ON FILE [facility] DRUG INGREDI THIORIDAZINE Thioridazine [facility] DRUG INGREDI HALOPERIDOL Haloperidol [facility] DRUG INGREDI FLUPHENAZINE Fluphenazine [facility] DRUG INGREDI CHLORPROMAZINE Chlorpromazine [facility] Drug allergy Thioridazine HCl Thioridazine Unknown Active eCW1 ([facility]) ACEI ACEI ACEI cough Active eCW1 ([facility]) ACEI ACEI ACEI cough Active eCW1 ([facility]) ACEI ACEI ACEI cough Active eCW1 ([facility]) Allergy to substance Allergy to substance Allergy to substance JAYANT ([facility]) Allergy to substance Allergy to substance Allergy to substance JAYANT ([facility]) Allergy to substance Allergy to substance Allergy to substance JAYANT ([facility]) Family History Family Member Name Family Member Gender Family Member Status Date o f Status Description Data Source(s) Unknown Unknown Problem MEDENT ([facility]) Encounters Encounter Providers Location Date Indications Data Source(s ) Outpatient Attender: Cornelio Fletcher 10/28/2020 12:[facility] Attender: Cornelio Fletcher 021 12:00:00 AM EST - 04/29/2020 04:31:36 PM EST Unspecified b-cell lymphoma, extranodal and solid orga n [facility] Unspecified b-cell lymphoma, extranodal and solid organ sites [place] [address] [facility] [place] [address] 04/26/2020 12:00:00 AM EST eCW1 ([facility]) Outpatient Attender: Cornelio Fletcher 04/22/2020 12:00:00 AM [facility] Outpatient Attender: MARYAM ROMERO NP [facility] 04/20/2020 11:30:00 AM EST - 04/20/2020 11:30:00 AM EST [facility] ([facility]) Attender: MARYAM ROMERO NP 04/20/2020 12:00:00 AM EST [facility] ([facility] Unknown [address] [facility] [place] [address] 04/06/2020 12:00:00 AM EST eCW1 ([facility]) Unknown [address] [facility] [place] [address] 03/30/2020 12:00:00 AM EST eCW1 ([facility]) Miriam Acosta, SENIOR IT PROJECT MANAGER-C: [address] [place] [phone], Ph. Attender: Miriam CEE - [facility] Medical 03/30/2020 12:00:00 AM EST JAYANT ([facility]) Unknown [address] [facility] [place] [address] 03/24/2020 12:00:00 AM EST [facility]1 [facility]) Outpatient Attender: MARYAM ROMERO NETWORK SYSTEMS ADMINISTRATOR [facility] 03/23/2020 11:30:00 AM EST - 03/23/2020 11:30:00 AM EST [facility] ([facility]) Attender: MARYAM ROMERO NETWORK SYSTEMS ADMINISTRATOR 03/23/2020 12:00:00 AM EST [facility] ([facility]) Outpatient Attender: SISI SÁNCHEZ [facility] 03/05 12:45:00 PM EST MEDENT ([facility] Unknown [address] [facility] [address] 03/17/2020 12:00:00 AM EST eCW1 ([facility]) Unknown [address] [facility] [address] 03/15/2020 12:00:00 AM EST eCW1 ([facility]) Unknown [address] [facility] [address] 03/04/2020 12:00:00 AM EST eCW1 ([facility]) Outpatient [address] [facility] [address] 03/03/2020 12:00:00 AM EST eCW1 ([facility]) Humberto Jose MD: [address] [place] [phone], Ph. Attender: Humberto Jose MD [facility] Medical 03/02/2020 12:00:00 AM EST JAYANT ([facility]) Humberto Jose MD: [address] [place] [phone], Ph. Attender: Humberto Jose MD [facility] Medical 03/02/2020 12:00:00 AM EST JAYANT ([facility]) Humberto Jose MD: [address] [place] [phone], Ph. Attender: Humberto Jose MD [place] - [facility] Medical 03/02/2020 12:00:00 AM EST JAYANT ([facility]) Outpatient Attender: MARYAM ROMERO NP [facility] Misael l 02/24/2020 11:30:00 AM EST - 02/24/2020 11:30:00 AM EST [facility] ([facility]) Attender: MARYAM ROMERO NP 02/24/2020 12:00:00 AM EST [facility] ([facility]) Unknown [address] [facility] [address] 02/12/2020 12:00:00 AM EST eCW1 ([facility]) Unknown [address] [facility] [address] 02/02/2020 12:00:00 AM EST eCW1 ([facility]) Unknown [address] [facility] [id number] 01/30/2020 12:00:00 AM EST eCW1 ([facility]) Outpatient Attender: MARYAM ROMERO NP [facility] Misael l 01/27/2020 10:30:00 AM EST - 01/27/2020 10:30:00 AM EST [facility] ([facility]) Attender: MARYAM ROMERO NP 01/27/2020 12:00:00 AM EST [facility] ([facility]) Outpatient Attender: SISI SÁNCHEZ [facility] 06/2019 12:45:00 PM EST MEDENT ([facility] Unknown [address] [facility] [address] 01/07/2020 12:00:00 AM EST eCW1 ([facility]) [facility] [address] [facility] [address] 01/05/2020 12:00:00 AM EST eCW1 ([facility]) Outpatient Attender: MARYAM ROMERO NP [facility] 12/30/2019 11:30:00 AM EDT - 12/30/2019 11:30:00 AM EDT [facility] ([facility]) Attender: MARYAM ROMERO NP 12/30/2019 12:00:00 AM EDT [facility] ([facility]) Psychiatric Diagnostic Evaluation with Medical Service s Attender: [facility] 12[facility]02/2019 04:00:00 AM EDT - 12/02/2019 04:00:00 AM EDT [facility] ([facility]) Attender: MARYAM ROMERO NP 12/02/2019 12:00:00 AM EDT [facility] ([facility]) Attender: MARYAM ROMERO NP 11/27/2019 12:00:00 AM EDT [facility] ([facility]) Outpatient Attender: MARYAM ROMERO NP [facility] 11/24/2019 03:00:00 AM EDT - 11/24/2019 03:00:00 AM EDT [facility] ([facility]) Outpatient Attender: Priya Duong [place] Main office - [facility] 11/21/2019 12:00:00 PM EDT MEDENT ([facility]) IP PSYCH Attender: Pj crow MDAttender: ANTHONY MULLER MDAdmitter: Pj Pageland MDConsultant: NIEVES NOEL MDConsultant: ANDREA GARCIA MD [id number] 11/09/2019 04:27:24 PM EDT - 11/13/2019 03:30:00 PM EDT [facility] Patient discharged. Outpatient 11/09/2019 08:24:00 AM EDT suicidal ideations [facility] suicidal ideations Outpatient Attender: SISI SÁNCHEZ [facility] 10/04 01:15:00 PM EDT MEDENT ([facility] [address] [facility] [place] [address] 10/21/2019 12:00:00 AM EDT eCW1 ([facility]) Outpatient Attender: Cornelio Pattersondmitter: Cornelio Fletcher [id number] 10/16/2019 12:00:00 AM EDT - 10/16/2019 01:42:04 PM EDT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, unspecified, unspecified site 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, unspecified, unspecified site Outpatient [address] [facility] [place] [address] 09/09/2019 12:00:00 AM EDT eCW1 ([facility]) Outpatient Attender: Jyoti LOGAN Main Office 08/19/2019 01:30:0 0 PM EDT MEDENT ([facility]) Outpatient Attender: MARYAM ROMERO NP [facility] Misael quiroga 08/04/2019 01:00:00 AM EDT - 08/04/2019 01:00:00 AM EDT [facility] ([facility]) Attender: MARYAM ROMERO NP 08/04/2019 12:00:00 AM EDT [facility] ([facility]) [facility] [address] [facility] [place] [address] 07/29/2019 12:00:00 AM EDT eCW1 ([facility]) [facility] [address] [place] [address] [place] [address] 07/21/2019 12:00:00 AM EDT eCW1 ([facility]) Outpatient Attender: MARYAM ROMERO NP [facility] Misael quiroga 07/07/2019 01:30:00 AM EDT - 07/07/2019 01:30:00 AM EDT [facility] ([facility]) Attender: MARYAM ROMERO NP 07/07/2019 12:00:00 AM EDT [facility] ([facility]) [facility] [address] [facility] [place] [address] 07/04/2019 12:00:00 AM EDT eCW1 ([facility]) [facility] [address] [facility] [address] 07/02/2019 12:00:00 AM EDT eCW1 ([facility]) TEMPMHCTelemed 20" psychotherapy Attender: Claire Hinds [facility] Rakel 06/27/2019 10:30:00 AM EDT - 06/27/2019 10:30:00 AM EDT [facility] ([facility]) Attender: Claire Hinds 06/27/2019 12:00:00 AM EDT [facility] ([facility]) Outpatient Attender: MARYAM ROMERO NP [facility] Misael quiroga 06/09/2019 01:30:00 AM EDT - 06/09/2019 01:30:00 AM EDT [facility] ([facility]) Attender: MARYAM ROMERO NP 06/09/2019 12:00:00 AM EDT [facility] ([facility]) [facility] [address] [facility] [place] [address] 06/04/2019 12:00:00 AM EDT eCW1 ([facility]) [facility] [address] [facility] [place] [address] 04/28/2019 12:00:00 AM EST eCW1 ([facility]) [facility] [address] [place] [address], [place] [address] 04/20/2019 12:00:00 AM EST eCW1 ([facility]) Outpatient Attender: Cornelio Mitchellitter: Cornelio HernandezA-ONCCACTR 04/17/2019 12:00:00 AM EST - 04/17/2019 02:31:27 PM EST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, unspecified, unspecified site 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, unspecified, unspecified site Outpatient Attender: MARYAM ROMERO NP [facility] Misael quiroga 04/14/2019 03:00:00 AM EST - 04/14/2019 03:00:00 AM EST [facility] ([facility]) Attender: MARYAM ROMERO NP 04/14/2019 12:00:00 AM EST [facility] ([facility]) [address] [address] 04/01/2019 12:00:00 AM EST eCW1 ([facility]) [address] [address] 03/31/2019 12:00:00 AM EST eCW1 ([facility]) [address] [address] 03/28/2019 12:00:00 AM EST eCW1 ([facility]) [address] [address] 03/25/2019 12:00:00 AM EST eCW1 ([facility]) Brief Individual Psychotherapy - 30 min Attender: Gena [facility] 03/21/2019 01:00:00 AM EST - 03/21/2019 01:00:00 AM EST [facility] ([facility]) Attender: Gena Giles 03/21/2019 12:00:00 AM EST [facility] ([facility]) [address] [address] 03/17/2019 12:00:00 AM EST eCW1 ([facility]) Outpatient Attender: Priya Duong [facility] 03/11/2019 10:00:00 AM EST MEDENT ([facility] DAVID fr[place]) [address] [address] 03/10/2019 12:00:00 AM EST eCW1 ([facility]) Functional Status Immunizations Vaccine Date Status Description Data Source(s) influenza, recombinant, quadrIvalent,injectable, prese rvative free 04/29/2020 06:06:00 PM EST completed eCW1 ([facility]) COVID-19 dose #2 given elsewhere Unspecified 04/02/2020 09:3 0:00 AM EST completed eCW1 ([facility]) COVID-19, mRNA, LNP-S, PF, 100 mcg/0.5 mL dose 03/02/2020 05 :04:16 PM EST completed 03/02/20200.5 mL JAYANT ([facility]) COVID-19, mRNA, LNP-S, PF, 100 mcg/0.5 mL dose 03/02/2020 05 :04:16 PM EST completed .5 mL JAYANT ([facility]) COVID-19, mRNA, LNP-S, PF, 100 mcg/0.5 mL dose 03/02/2020 05 :04:16 PM EST completed .5 mL JAYANT ([facility]) COVID-19 dose #1 given elsewhere Unspecified 03/02/2020 09:2 9:00 AM EST completed eCW1 ([facility]) Medications Medication Brand Name Start Date Product Form Dose Route Admi nistrative Instructions Pharmacy Instructions Status Indications Reaction Description Data Source(s) sildenafil 50 MG Oral Tablet Sildenafil Citrate 50 MG Silden afil Citrate 50 MG 04/29/2020 12:00:00 AM EST 1.0 {tablet} active Sildenafil Citrate 50 MG eCW1 ([facility]) Fluticasone Propionate 50 MCG/ACT Fluticasone Propionate 50 MCG/ACT 03/03/2020 12:00:00 AM EST 2.0 {sprays_in_each_nostril} act car Fluticasone Propionate 50 MCG/ACT eCW1 ([facility]) Fluticasone Propionate 50 MCG/ACT Fluticasone Propionate 50 MCG/ACT 03/03/2020 12:00:00 AM EST 2.0 {sprays_in_each_nostril} act car Fluticasone Propionate 50 MCG/ACT eCW1 ([facility]) Fluticasone Propionate 50 MCG/ACT Fluticasone Propionate 50 MCG/ACT 03/03/2020 12:00:00 AM EST 2.0 {sprays_in_each_nostril} act car Fluticasone Propionate 50 MCG/ACT eCW1 ([facility]) Fluticasone Propionate 50 MCG/ACT Fluticasone Propionate 50 MCG/ACT 03/03/2020 12:00:00 AM EST 2.0 {sprays_in_each_nostril} act car Fluticasone Propionate 50 MCG/ACT eCW1 ([facility]) Fluticasone Propionate 50 MCG/ACT Fluticasone Propionate 50 MCG/ACT 03/03/2020 12:00:00 AM EST 2.0 {sprays_in_each_nostril} act car Fluticasone Propionate 50 MCG/ACT eCW1 ([facility]) Fluticasone Propionate 50 MCG/ACT Fluticasone Propionate 50 MCG/ACT 03/03/2020 12:00:00 AM EST 2.0 {sprays_in_each_nostril} act car Fluticasone Propionate 50 MCG/ACT eCW1 ([facility]) Fluticasone Propionate 50 MCG/ACT Fluticasone Propionate 50 MCG/ACT 03/03/2020 12:00:00 AM EST 2.0 {sprays_in_each_nostril} act car Fluticasone Propionate 50 MCG/ACT eCW1 ([facility]) Fluticasone Propionate 50 MCG/ACT Fluticasone Propionate 50 MCG/ACT 03/03/2020 12:00:00 AM EST 2.0 {sprays_in_each_nostril} act car Fluticasone Propionate 50 MCG/ACT eCW1 ([facility]) Hydroxyzine Hydrochloride 50 MG Oral Tablet hydroxyzine HCl 01/27/2020 12:00:00 AM EST 50 mg by mouth completed [id number] hydroxyzine HCl by mouth [id number] 01/27/2020 05/22/2020 once a day 30 50 mg tablet as needed 80 436 [id number] Maryam Romero [id number] Nurse Practitioner [facility] ([facility]) Fluoxetine 20 MG Oral Capsule [Prozac] Prozac 12/30/2019 12:0 0:00 AM EDT 20 mg by mouth completed [id number] Prozac by mouth [id number] 1 03/29/2020 every morning 30 20 mg capsule 84705 [id number] Ray Romero [id number] Nurse Practitioner [facility] ([facility]) Fluoxetine 20 MG Oral Capsule [Prozac] Prozac 12/30/2019 12:0 0:00 AM EDT 20 mg by mouth completed [id number] Prozac by mouth [id number] 1 06/29/2020 every morning 30 20 mg capsule 67575 [id number] Piotr shyam Diaz [id number] Psychiatric/Mental Health [facility] ([facility]) Trazodone Hydrochloride 50 MG Oral Tablet trazodone 2019 12:00:00 AM EDT 50 mg by mouth completed 652105 trazodone by mouth [id number] 12/25/2019 03/24/2020 at bedtime 30 50 mg tablet 83319 [id number] Pati Romero [id number] Nurse Practitioner [facility] ([facility]) Trazodone Hydrochloride 50 MG Oral Tablet trazodone 2019 12:00:00 AM EDT 50 mg by mouth completed [id number] trazodone by mouth [id number] 88 12/25/2019 06/13/2020 at bedtime 30 50 mg tablet 55091 [id number] Pati Romero [id number] Nurse Practitioner [facility] ([facility]) Fluoxetine 10 MG Oral Capsule [Prozac] Prozac 09/29/2019 12:0 0:00 AM EDT 10 mg by mouth completed [id number] Prozac by mouth [id number] 0 09/29/2019 01/26/2020 every morning 30 10 mg capsule 70064 517685 [id number] Ray Romero [id number] Nurse Practitioner [facility] ([facility]) Fluoxetine 10 MG Oral Capsule [Prozac] Prozac 09/29/2019 12:0 0:00 AM EDT 10 mg by mouth completed [id number] Prozac by mouth [id number] 0 09/29/2019 12/30/2019 every morning 30 10 mg capsule 92175 [id number] Ray Romero [id number] Nurse Practitioner [facility] ([facility]) Tamsulosin hydrochloride 0.4 MG Oral Capsule Tamsulosin HCL 09/23/2019 12:00:00 AM EDT ORAL active MEDENT ([facility]) Trazodone Hydrochloride 50 MG Oral Tablet trazodone 2019 12:00:00 AM EDT 50 mg by mouth completed 151783 trazodone by mouth [id number] 88 09/19/2019 11/27/2019 at bedtime 30 50 mg tablet 69749 889175 [id number] Pati Romero [id number] Nurse Practitioner [facility] ([facility]) [place] Carbonate 300 MG Oral Capsule lithium carbonate 12:00:00 AM EDT 300 mg by mouth completed 750901 lithium car bonate by mouth [id number] 09/15/2019 twice a day 300 mg capsule 99539 [id number] [phone] [id number] Karel Velez [id number] Nurse Practitioner [facility] ([facility]) Hydroxyzine Hydrochloride 50 MG Oral Tablet Hydroxyzine HCL 08/18/2019 12:00:00 AM EDT ORAL active MEDENT ([facility]) [place] 08/18/2019 12:00:00 AM EDT ORAL active MEDENT ([facility]) Acetaminophen 325 MG Oral Tablet Acetaminophen 08/18/2019 12:00:00 AM EDT active MEDENT ([facility]) Ketoconazole 20 MG/ML Topical Cream Ketoconazole 08/18/2019 12:00:00 AM EDT active MEDENT ([facility]) Losartan Potassium 50 MG Oral Tablet Losartan Potassium 12:00:00 AM EDT ORAL active MEDENT ([facility]) Trazodone Hydrochloride 50 MG Oral Tablet Trazodone HCL 08/18/2019 12:00:00 AM EDT ORAL active MEDENT ([facility]) Levothyroxine Sodium 0.1 MG Oral Tablet Levothyroxine Sodium 08/18/2019 12:00:00 AM EDT ORAL active MEDENT ([facility]) Propranolol Hydrochloride 10 MG Oral Tablet Propranolol HCL 08/18/2019 12:00:00 AM EDT ORAL active MEDENT ([facility]) Naproxen 500 MG Oral Tablet Naproxen 08/18/2019 12:00:00 AM EDT ORAL active MEDENT ([facility]) Fluoxetine 10 MG Oral Capsule Fluoxetine HCL (PMDD) 08/18/2019 1 2:00:00 AM EDT ORAL active MEDENT ( [facility]) [place] 07/17/2019 12:00:00 AM EDT ORAL active MEDENT ([facility]) ammonium lactate 120 MG/ML Topical Cream Ammonium Lactate 07/10/2019 12:00:00 AM EDT active MEDENT ([facility] Trazodone Hydrochloride 50 MG Oral Tablet trazodone 2019 12:00:00 AM EDT 50 mg by mouth completed [id number] trazodone by mouth [id number] 88 06/16/2019 09/14/2019 at bedtime 30 50 mg tablet 10299 [id number] Pati Romero [id number] Nurse Practitioner [facility] ([facility]) [place] 06/11/2019 12:00:00 AM EDT 9 mg by mouth completed [id number] [place] by mouth [id number] 06/11/2019 09/09/2019 twice a day 30 9 mg tablet 24892 068690 [id number] Maryam Romero [id number] Nurse Reyna willoughby [facility] ([facility]) [place] 06/09/2019 12:00:00 AM EDT 9 mg by mouth completed [id number] [place] by mouth [id number] 06/09/2019 09/07/2019 every morning 30 9 m g tablet 63795 467150 [id number] Maryam Romero [id number] Nurse Ashley walden [facility] ([facility]) [place] Carbonate 300 MG Oral Capsule lithium carbonate 12:00:00 AM EDT 300 mg by mouth completed 512509 lithium car bonate by mouth [id number] 05/13/2019 09/07/2019 twice a day 30 300 mg capsule as directe d 57362 [id number] Maryam Romero [id number] Nurse Practitioner [facility] ([facility]) [place] Carbonate 300 MG Oral Capsule lithium carbonate 12:00:00 AM EDT 300 mg by mouth completed 509463 lithium car bonate by mouth [id number] 05/13/2019 09/07/2019 twice a day 30 300 mg capsule as directe d 90783 339772 [id number] Maryam Romero [id number] Nurse Practitioner [facility] ([facility]) [place] 05/12/2019 12:00:00 AM EDT 6 mg by mouth completed [id number] [place] by mouth [id number] 05/12/2019 06/09/2019 twice a day 30 6 mg tablet 65199 540540 [id number] Maryam Romero [id number] Nurse Practi tioner [facility] ([facility]) Docusate Sodium 100 MG Oral Capsule [Colace] Colace 100 MG C olace 100 MG 03/31/2019 12:00:00 AM EST active 1 capsule as needed eCW1 ([facility]) Hydroxyzine Hydrochloride 50 MG Oral Tablet HydrOXYzin e HCl 50 MG HydrOXYzine HCl 50 MG 03/31/2019 12:00:00 AM EST 1.0 {tablet_as_needed} active HydrOXYzine HCl 50 MG eCW1 ([facility]) Hydroxyzine Hydrochloride 50 MG Oral Tablet HydrOXYzin e HCl 50 MG HydrOXYzine HCl 50 MG 03/31/2019 12:00:00 AM EST 1.0 {tablet_as_needed} active HydrOXYzine HCl 50 MG eCW1 ([facility]) Docusate Sodium 100 MG Oral Capsule [Colace] Colace 100 MG C olace 100 MG 03/31/2019 12:00:00 AM EST 1.0 {capsule_as_needed} active Colace 100 MG eCW1 ([facility]) Hydroxyzine Hydrochloride 50 MG Oral Tablet HydrOXYzin e HCl 50 MG HydrOXYzine HCl 50 MG 03/31/2019 12:00:00 AM EST 1.0 {tablet_as_needed} active HydrOXYzine HCl 50 MG eCW1 ([facility]) Hydroxyzine Hydrochloride 50 MG Oral Tablet HydrOXYzin e HCl 50 MG HydrOXYzine HCl 50 MG 03/31/2019 12:00:00 AM EST active 1 tablet as needed eCW1 ([facility]) Hydroxyzine Hydrochloride 50 MG Oral Tablet HydrOXYzin e HCl 50 MG HydrOXYzine HCl 50 MG 03/31/2019 12:00:00 AM EST 1.0 {tablet_as_needed} active HydrOXYzine HCl 50 MG eCW1 ([facility]) Docusate Sodium 100 MG Oral Capsule [Colace] Colace 100 MG C olace 100 MG 03/31/2019 12:00:00 AM EST 1.0 {capsule_as_needed} active Colace 100 MG eCW1 ([facility]) Docusate Sodium 100 MG Oral Capsule [Colace] Colace 100 MG C olace 100 MG 03/31/2019 12:00:00 AM EST 1.0 {capsule_as_needed} active Colace 100 MG eCW1 ([facility]) Hydroxyzine Hydrochloride 50 MG Oral Tablet HydrOXYzin e HCl 50 MG HydrOXYzine HCl 50 MG 03/31/2019 12:00:00 AM EST 1.0 {tablet_as_needed} active HydrOXYzine HCl 50 MG eCW1 ([facility]) Hydroxyzine Hydrochloride 50 MG Oral Tablet HydrOXYzin e HCl 50 MG HydrOXYzine HCl 50 MG 03/31/2019 12:00:00 AM EST 1.0 {tablet_as_needed} active HydrOXYzine HCl 50 MG eCW1 ([facility]) Hydroxyzine Hydrochloride 50 MG Oral Tablet HydrOXYzin e HCl 50 MG HydrOXYzine HCl 50 MG 03/31/2019 12:00:00 AM EST 1.0 {tablet_as_needed} active HydrOXYzine HCl 50 MG eCW1 ([facility]) Hydroxyzine Hydrochloride 50 MG Oral Tablet HydrOXYzin e HCl 50 MG HydrOXYzine HCl 50 MG 03/31/2019 12:00:00 AM EST 1.0 {tablet_as_needed} active HydrOXYzine HCl 50 MG eCW1 ([facility]) Hydroxyzine Hydrochloride 50 MG Oral Tablet HydrOXYzin e HCl 50 MG HydrOXYzine HCl 50 MG 03/31/2019 12:00:00 AM EST 1.0 {tablet_as_needed} active HydrOXYzine HCl 50 MG eCW1 ([facility]) Hydroxyzine Hydrochloride 50 MG Oral Tablet HydrOXYzin e HCl 50 MG HydrOXYzine HCl 50 MG 03/31/2019 12:00:00 AM EST 1.0 {tablet_as_needed} active HydrOXYzine HCl 50 MG eCW1 ([facility]) Hydroxyzine Hydrochloride 50 MG Oral Tablet HydrOXYzin e HCl 50 MG HydrOXYzine HCl 50 MG 03/31/2019 12:00:00 AM EST 1.0 {tablet_as_needed} active HydrOXYzine HCl 50 MG eCW1 ([facility]) Docusate Sodium 100 MG Oral Capsule [Colace] Colace 100 MG C olace 100 MG 03/31/2019 12:00:00 AM EST active 1 capsule as needed eCW1 ([facility]) Hydroxyzine Hydrochloride 50 MG Oral Tablet HydrOXYzin e HCl 50 MG HydrOXYzine HCl 50 MG 03/31/2019 12:00:00 AM EST active 1 tablet as needed eCW1 ([facility]) Hydroxyzine Hydrochloride 50 MG Oral Tablet HydrOXYzin e HCl 50 MG HydrOXYzine HCl 50 MG 03/31/2019 12:00:00 AM EST 1.0 {tablet_as_needed} active HydrOXYzine HCl 50 MG eCW1 ([facility]) Docusate Sodium 100 MG Oral Capsule [Colace] Colace 100 MG C olace 100 MG 03/31/2019 12:00:00 AM EST 1.0 {capsule_as_needed} active Colace 100 MG eCW1 ([facility]) Hydroxyzine Hydrochloride 50 MG Oral Tablet HydrOXYzin e HCl 50 MG HydrOXYzine HCl 50 MG 03/31/2019 12:00:00 AM EST 1.0 {tablet_as_needed} active HydrOXYzine HCl 50 MG eCW1 ([facility]) Docusate Sodium 100 MG Oral Capsule [Colace] Colace 100 MG C olace 100 MG 03/31/2019 12:00:00 AM EST 1.0 {capsule_as_needed} active Colace 100 MG eCW1 ([facility]) Hydroxyzine Hydrochloride 50 MG Oral Tablet HydrOXYzin e HCl 50 MG HydrOXYzine HCl 50 MG 03/31/2019 12:00:00 AM EST 1.0 {tablet_as_needed} active HydrOXYzine HCl 50 MG eCW1 ([facility]) Austedo Austedo 03/11/2019 12:00:00 AM EST ORAL active MEDENT ([facility]) Austedo Austedo 10/22/2018 12:00:00 AM EDT 6 mg by mouth completed [id number] Austedo by mouth [id number] 10/22/2018 05/11/2019 twice a day 30 6 mg tablet [id number] Maryam Romero [id number] Nurse Practi tioner [facility] ([facility]) quetiapine 100 MG Oral Tablet [Seroquel] Seroquel 09/10/2014 12 :00:00 AM EDT 100 mg by mouth completed [id number] Seroquel by mouth [id number] 09/10/2014 03/01/2020 at bedtime 30 100 mg tablet [id number] Justin Romero [id number] Nurse Practitioner [facility] ([facility]) Insurance Providers Payer name Policy type / Coverage type Policy ID Covered green party ID Covered green party's relationship to hunt Policy Hunt Plan Information UN COMMUNITY PLAN [facility] [id number] SP [id number] [facility] I [id number] Self [id number] [facility] COMMUNITY PLAN [facility] [id number] SP [id number] [facility]) O [id number] S [id number] [facility] MEDICAID [id number] Self [id number] [facility] I [id number] Self [id number] [facility] COMMUNITY PLAN [facility] [id number] SP [id number] [facility] [id number] Self [id number] [facility] [id number] SP [id number] ANSI-Medicaid [id number] ANSI-Medicaid [id number] [facility] Commercial [id number] Self [id number] ANSI-Medicaid [id number] U/HC Medicaid Comm Plan Commercial [id number] Self [id number] [facility] Commercial [id number] Self [id number] ANSI-Medicaid [id number] ANSI-Medicaid [id number] ANSI-Medicaid [id number] ANSI-Medicaid [id number] ANSI-Medicaid [id number] [facility] Commercial [id number] Self [id number] ANSI-Medicaid [id number] ANSI-Medicaid [id number] ANSI-Medicaid [id number] ANSI-Medicaid [id number] ANSI-Medicaid [id number] ANSI-Medicaid [id number] ANSI-Medicaid [id number] ANSI-Medicaid [id number] ANSI-Medicaid [id number] ANSI-Medicaid [id number] ANSI-Medicaid [id number] UN COMMUNITY PLAN [facility] [id number] SP [id number] ANSI-Medicaid [id number] [facility] Commercial [id number] Self [id number] ANSI-Medicaid [id number] ANSI-Medicaid [id number] ANSI-Medicaid [id number] ANSI-Medicaid [id number] ANSI-Medicaid [id number] ANSI-Medicaid [id number] ANSI-Medicaid [id number] ANSI-Medicaid [id number] ANSI-Medicaid [id number] [facility] [id number] SP [id number] ANSI-Medicaid [id number] [facility] Commercial [id number] Self [id number] [facility] [id number] SP [id number] [facility] Commercial [id number] Self [id number] [facility] Community Plan Commercial [id number] Self [id number] [facility] Community Plan Medigap Part B [id number] Self [id number] [facility] Community Plan Commercial [id number] Self [id number] [facility] Plan Commercial [id number] Self [id number] [facility] Commercial [id number] Self [id number] OTHER1 UNAVAILABLE UNAVAILA BLE [facility] Commercial [id number] Self [id number] [employer] COMMUNITY PLAN MCDO [id number] SP [id number] [employer] COMMUNITY PLAN M[employer]O [id number] SP [id number] [facility] Hmo Commercial Self U/HC Medicaid Comm Plan Commercial Self MEDICAID [id number] SP [id number] [facility] Community Plan Commercial Self [facility]) O [id number] S [id number] [facility] [id number] SP [id number] SELF PAY UNAVAILABLE SP UNAVAILA BLE OTHER1 [id number] S [id number] MEDICAID [id number] S [id number] [facility] OFFICE OF MENTAL HEALTH [id number] S [id number] MEDICAID [id number] [facility] OFFICE OF MENTAL HEALTH [id number] S [id number] [facility] [id number] Problems, Conditions, and Diagnoses Code Display Name Description Problem Type Effective Dates Data Source(s) N18.31 Chronic kidney disease, stage 3a Chronic kidney disease, stage 3a Problem 04/29/2020 12:00:00 AM EST eCW1 ([facility]) F31.0 Bipolar disorder, current episode hypoma delgado Bipolar I Disorder, Current or most recent episode hypomanic Condition 04/20/2020 12:00:00 AM EST [facility] ([facility]) M75.42 [id number] Impingement syndrome of left shoulder Pro blem 03/03/2020 12:00:00 AM EST eCW1 ([facility]) 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 ED (erectile dysfunction) Problem 03/03/2020 12:00:00 AM EST eCW1 ([facility]) F31.4 Bipolar disorder, current ep isode depressed, severe, without psychotic features Bipolar I Disorder, Current or most recent episode dep ressed, Severe Condition 01/27/2020 12:00:00 AM EST [facility] ([facility]) F31.12 Bipolar disorder, current ep isode manic without psychotic features, moderate Bipolar I Disorder, Current or most recent episode man ic, Moderate Condition 01/27/2020 12:00:00 AM EST [facility] ([facility]) K11.5 [id number] Sialolithiasis of submandibular gland Pro blem 09/09/2019 12:00:00 AM EDT eCW1 ([facility]) 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 Surgeries/Procedures Procedure Description Date Indications Data Source(s) [facility] Telemed E/M Lvl 3--Est pt 04/20/2020 12:00:00 AM EST - 04/20/2020 12:00:00 AM EST [facility] ([facility]) [facility] Telemed E/M Lvl 3--Est pt 04/20/2020 12:00:[address] [facility] ([facility]) OFFICE OUTPATIENT VISIT 15 MINUTES 03/23 12:00:00 AM EST - 03/23/2020 12:00:00 AM EST [facility] ([facility]) OFFICE OUTPATIENT VISIT 15 MINUTES 03/23/2020 12:00:00 AM EST [facility] ([facility]) OFFICE OUTPATIENT VISIT 15 MINUTES 02/23 12:00:00 AM EST - 02/24/2020 12:00:00 AM EST [facility] ([facility]) OFFICE OUTPATIENT VISIT 15 MINUTES 02/24/2020 12:00:00 AM EST [facility] ([facility]) OFFICE OUTPATIENT VISIT 15 MINUTES 01/26 12:00:00 AM EST - 01/27/2020 12:00:00 AM EST [facility] ([facility]) OFFICE OUTPATIENT VISIT 15 MINUTES 01/27/2020 12:00:00 AM EST [facility] ([facility]) OFFICE OUTPATIENT VISIT 15 MINUTES 12/29 12:00:00 AM EDT - 12/30/2019 12:00:00 AM EDT [facility] ([facility]) OFFICE OUTPATIENT VISIT 15 MINUTES 12/30/2019 12:00:00 AM EDT [facility] ([facility]) Psychiatric Diagnostic Evaluation with Medical Services 12/02/2019 12:00:00 AM EDT - 12/02/2019 12:00:00 AM EDT [facility] ([facility]) Psychiatric Diagnostic Evaluation with Medical Services 12/02/2019 12:00:00 AM EDT [facility] ([facility]) OFFICE OUTPATIENT VISIT 15 MINUTES 11/26 12:00:00 AM EDT - 11/27/2019 12:00:00 AM EDT [facility] ([facility]) OFFICE OUTPATIENT VISIT 15 MINUTES 11/24/2019 12:00:00 AM EDT [facility] (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) DEBRIDEMENT NAIL ANY METHOD 6/> 07/31/2019 12:00:00 AM EDT MEDENT ([facility] MHC Telemed E/M Lvl 3--Est pt 07/07/2019 12:00:00 AM EDT - 07/07/2019 12:00:00 AM EDT [facility] ([facility]) MHC Telemed E/M Lvl 3--Est pt 07/07/2019 12:00:00 AM E DT [facility] ([facility]) TEMPMHCTelemed 20" psychotherapy 020 12:00:00 AM EDT - 06/27/2019 12:00:00 AM EDT [facility] ([facility]) TEMPMHCTelemed 20" psychotherapy 06/27/2019 12:00:00 A M EDT [facility] ([facility]) MHC Telemed E/M Lvl 3--Est pt 06/09/2019 12:00:00 AM EDT - 06/09/2019 12:00:00 AM EDT [facility] ([facility]) [facility] Telemed E/M Lvl 3--Est pt 06/09/2019 12:00:00 AM E DT [facility] (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 HEMATOPATHOLOGY HEMATOPATHOLOGY Routine 04/17/2019 12:00 AM EST 04/17/2019 05:00:00 AM [facility] OFFICE OUTPATIENT VISIT 15 MINUTES 04/14 12:00:00 AM EST - 04/14/2019 12:00:00 AM EST [facility] ([facility]) OFFICE OUTPATIENT VISIT 15 MINUTES 04/14/2019 12:00:00 AM EST [facility] ([facility]) Brief Individual Psychotherapy - 30 min 03/21/2019 12:00:00 AM EST - 03/21/2019 12:00:00 AM EST [facility] ([facility]) Brief Individual Psychotherapy - 30 min 03/21/2019 12: 00:00 AM EST [facility] ([facility]) DEBRIDEMENT NAIL ANY METHOD 6/> 03/19/2019 12:00:00 AM EST [facility] ([facility] PROGRAM EVAL IMPLANTABLE IN PERSN DUAL LD PACER 2019 12:00:00 AM EST MEDENT ([facility]) Results ID Date Data Source [facility] Shoulder, complete 03/12/2020 12:00:00 AM EST eCW1 ([facility]) Name Value Range Interpretation Code Description Data Jing rce(s) Supporting Document(s) [facility] Shoulder, complete eCW1 ([facility]) ID Date Data Source [id number] 12/01/2019 02:06:54 PM EDT [facility] Name Value Range Interpretation Code Description Data Jing rce(s) Supporting Document(s) Progress Notes [facility] PCHXRx7jVkNBZxUi31/OOQnbPOVgm8WyVWvlGDu3JOdmSUPvP2SqONG3tO9lEWL4BDiKSnEvHrMyRSX5 lbm [file] 9GDQo= ID Date Data Source [id number] 12/01/2019 02:06:44 PM EDT [facility] Name Value Range Interpretation Code Description Data Jing rce(s) Supporting Document(s) Progress Notes [facility] BVZRBq8vWeLBQtZi21/FSMkxRFNjv5CcRWwoKJu8ZZjfAGCjY6TpBWB1tM9hWWT6RYtQIsEfOqWwGQD2 lbm [file] FPByIaB5TUX1AwKbDWOyLlZcTnZfWB5CFl3SEsK8BGA9cRUtSh8LBwnkOyeZIcZyMK7JHMt= ID Date Data Source [id number] 11/25/2019 08:45:39 AM EDT [facility] Name Value Range Interpretation Code Description Data Jing rce(s) Supporting Document(s) H&P [facility] SKAWUs2bBcDWIkJy70/DAMhfKYLap8InMKrjAGo1PXfiEJEyA5SeXQA5eX3yKOL2TRiEOmEsVqUwPINb lbm [file] BkijBSLnKcFjMU9FGy1UFbL7KXU9jRUrMm9WQeVlTJgMWgMbPV1BCFu= ID Date Data Source [id number] 11/25/2019 08:31:03 AM EDT [facility] Name Value Range Interpretation Code Description Data Jing rce(s) Supporting Document(s) Discharge Summary [facility] ZTQCYi0zBoTMIzPy93/FHEmiAXDzo6RhAKogAWe8IXesWRNzO0QkDNC5rQ3vCYF1HFsUXoNvYtXyXETo lbm [file] otOPWBLv9I ID Date Data Source [id number] 11/14/2019 10:36:[address] [facility] Name Value Range Interpretation Code Description Data Jing rce(s) Supporting Document(s) Progress Notes [facility] LHCDHh0gKxAHZkTm81/YDRtoISAfy8ZmGXshYPe6YZgeQNZdN1YlCRR9tW1dBDA1TYjYRrQhSaGfUZGo lbm [file] ICAgICAgICAgICAgICAgICAgICAgICAgICAgICAgICAgICAgICAgICAgICAgICAgICAgICAgICAgICAg ICAgICAgICAgICAgICAgICAgICAgICAgDQogICAgICAgICAgICAgICAgICAgICAgICAgICAgICAgICAg ICAgICAgICAgICAgICAgICAgICAgICAgICAgICAgIC AgICAgICAgICAgICAgICAgICAgICAgICAgICAgICAgICAgDQogICAgICAgICAgICAgICAgICAgICAgIC AgICAgICAgICAgICAgICAgICAgICAgICAgICAgICAgICAgICAgICAgICAgICAgICAgICAgICAgICAgIC AgICAgICAgICAgICAgICAgDQogICAgICAgICAgICAg ICAgICAgICAgICAgICAgICAgICAgICAgICAgICAgICAgICAgICAgICAgICAgICAgICAgICAgICAgICAg ICAgICAgICAgICAgICAgICAgICAgICAgICAgDQogICAgICAgICAgICAgICAgICAgICAgICAgICAgICAg ICAgICAgICAgICAgICAgICAgICAgICAgICAgICAgIC AgICAgICAgICAgICAgICAgICAgICAgICAgICAgICAgICAgICAgDQogICAgICAgICAgICAgICAgICAgIC AgICAgICAgICAgICAgICAgICAgICAgICAgICAgICAgICAgICAgICAgICAgICAgICAgICAgICAgICAgIC AgICAgICAgICAgICAgICAgICAgDQogICAgICAgICAg ICAgICAgICAgICAgICAgICAgICAgICAgICAgICAgICAgICAgICAgICAgICAgICAgICAgICAgICAgICAg ICAgICAgICAgICAgICAgICAgICAgICAgICAgICAgDQogICAgICAgICAgICAgICAgICAgICAgICAgICAg ICAgICAgICAgICAgICAgICAgICAgICAgICAgICAgIC AgICAgICAgICAgICAgICAgICAgICAgICAgICAgICAgICAgICAgICAgDQogICAgICAgICAgICAgICAgIC AgICAgICAgICAgICAgICAgICAgICAgICAgICAgICAgICAgICAgICAgICAgICAgICAgICAgICAgICAgIC AgICAgICAgICAgICAgICAgICAgICAgDQogICAgICAg ICAgICAgICAgICAgICAgICAgICAgICAgICAgICAgICAgICAgICAgICAgICAgICAgICAgICAgICAgICAg YVDeGDDeSSDrTUSsYXZzRHJwTFYcXCDbUCIrXGFuHZAeJMv4P4dqSLLtQIKdJC6mPBr4Sl8+DQoNCmVu ZCC1glBciJ5JUZ3no0AwIFjoIPZvl0UnVHr9BJ8UCG XnXThuPI2PRRzipq0GONFfKGOanYZVd5ttUfWwSBL2TMUwNjnoRU2TAEUfX2adrsWmIUVyYKCNJT4ECz LoD0EgrN98TQUZOg3+PJkxtlJcCapUHxX8CYAyv6GmEIa5VT1TYDXkNcoqf9LwSzMpQYVWEGkhAG6MDV G1MAN3GCZsZx9UDDEqY899dnTsFU0BCq0EYkJpAJ0y cr8SDlQxWLPoVlpJGlr0XOjoQW3GnEUrHWgSwg4tmlVolnJLc9HsutEoaTHVpYkpLFTeJH3hf0Oleq90 bQyvQZIsMZ6hZV5vXUDtVSWyPiTfLNQDXI8ZJGIzRHNlyDFqLSXeGSHWQD7KHAvjIBX4SphavwPbcWBi YCceGR0OILHvqvAtGpWbUNMSXMi+By3OFL7mt7XoAN jsIgKwUU2vxq5QIVySLaGcA9X7qDLbZ2Z4JHjmYh0SBTNdRSGsHzHzESTZSPnrSI5LHI2zaxA3WN0EoI GlFUXcBEOprECmTKd5C62ylGDgNPesRD1BGCL+Rambo+Eq3FOKFfHTJzXBSeUiYkDHGXWeKiZ0NqB9BJp3 LgF3HaHO07aWtqizCuQNpwTM8XUC7mZSOiMZUAKF8E kEHxnE0tbaOaGCSaIQWURwNjC05zfZPsUJUyEQR1PYLaTn6CCFSvL0OoczUljSceceKmFFVmODFZMF5D DEzsrsWxoNMurHyvCJ06cIetZZ9CZo0UMmQlQH1ccc1EsBCiXt8ECLOuAI1URNYeVUJlGYNqTZW7FHHt AeHfQSojDDSrHAOeWCI8KSPaJWGxON8CNdWuUIFyMd T5DIZmFOJnBPZeqq9QVQZuPSDzQiW2ALMcSRTmEOGjNVtfEFIyNHXnXCE8FVJlOBQdXG8VGtGcHBXdWX L2OwOpQGCpQWGlik2POACzIOTgYuvgMHBoZZYfTPVvOPjmUTWmOTZyBps9XGGyRULyYC3MYtVpBRVkTR F1KLlsBCFwMDMwrm9JZIXzFIBbLYH7MkVfPXVfYABz JMzbMISmAPK4QRXaCMTkBPBkMH3YXxCiXMNtJXUrPalxEUUoKBYgiz4AHHExFENjDPJwOLPkMWIiBIEu HZbzKSVyHYG5EXjgIUYyJUBdDK0GErRaRNAdQIqkRHXrSOCwWVLhmv2UKVNvTURjDFC6CBUqGVRiQGEn KRnrQTJrQGR3NoJ5DTNbJJNuRK1WTcIuADUyAHg1XG HkXSTtMBQcaj5JDRGoEGLvRYyeMBXeKJXgXXXuXMsuFEWkEKZ0YRV7AAHiZMYmBY2ERnVvPXQkFbGbXE TnIHVlLOZcee7ASTVwGAZuQWCyXWYxHUHqMJXhYCitKXFwKWLnMeQyMNZxLOFcOR7FUrPxJAMxSwDaPK AjJOHpZDIjlr1BVEFuFPAfYDpfKEKpXLGjEYLmQHdn TCXgNUDxHxNbGLKqUYIyMW7HDnXlRFZdOiPzHbIsZKGeOMPvzf7BNNXdLZGuVrF3KqByWIWxZNSjDIk6 hiRsiZPbCYd7YT0SA3EyqyCdGulIDo5Xc322TWC5QHXnRc2KX1ixRd6bZVIyELMTAu7NWGk9ZTIiNUOj PDX8RdF9TKIqSgD2K6OsUFU6TRLqQireRkK+IDw4YW Y8DFOdTDAbLNgdYNNlPIbmRXSpBqO1PXF4OGY7PC0tZOJHJz8+RCjodIBjiWdaYLUECrMeBuY2CXmjKL VPRg0K ID Date Data Source [id number] 11/13/2019 03:43:47 PM EDT [facility] Name Value Range Interpretation Code Description Data Jing rce(s) Supporting Document(s) Care Plan [facility] ZKMXNg8pQrOQWpLy50/JNNmyQHMux7XoIAqfBJd1LUrqEHYvL6VbJXI2wC5eUNV6MAaPNgHyMyZrHUSi lbm UpCboPHvHiADVwKozLIlUcSUdfCnhvoJKoPW7QvVJ4QBMgV28tRICsNUGjY6DtMPXsIlF+Xd1TGGAoeR GkWT2DRyrW5Hxmt8c2GJ9qzH+Rq5yVAaOuD9cFGZOqt6HL33KAoHd9U47cn+3co1TvOrxuK6oGxh0E/d WXPxda2noDEFI/19H6hKkqLwi/78WpjqWUovq//[facility] [file] AgICAgICAgICAgICAgICAgICAgICAgICAgICAgICAgICAgICAgICAgICAgICAgICAgICAgICAgICAgIC AgICAgICAgICAgICAgICAgICAgICAgICAgDQogICAgICAgICAgICAgICAgICAgICAgICAgICAgICAgIC AgICAgICAgICAgICAgICAgICAgICAgICAgICAgICAg ICAgICAgICAgICAgICAgICAgICAgICAgICAgICAgICAgICAgDQogICAgICAgICAgICAgICAgICAgICAg ICAgICAgICAgICAgICAgICAgICAgICAgICAgICAgICAgICAgICAgICAgICAgICAgICAgICAgICAgICAg ICAgICAgICAgICAgICAgICAgDQogICAgICAgICAgIC AgICAgICAgICAgICAgICAgICAgICAgICAgICAgICAgICAgICAgICAgICAgICAgICAgICAgICAgICAgIC AgICAgICAgICAgICAgICAgICAgICAgICAgICAgDQogICAgICAgICAgICAgICAgICAgICAgICAgICAgIC AgICAgICAgICAgICAgICAgICAgICAgICAgICAgICAg ICAgICAgICAgICAgICAgICAgICAgICAgICAgICAgICAgICAgICAgDQogICAgICAgICAgICAgICAgICAg ICAgICAgICAgICAgICAgICAgICAgICAgICAgICAgICAgICAgICAgICAgICAgICAgICAgICAgICAgICAg ICAgICAgICAgICAgICAgICAgICAgDQogICAgICAgIC AgICAgICAgICAgICAgICAgICAgICAgICAgICAgICAgICAgICAgICAgICAgICAgICAgICAgICAgICAgIC AgICAgICAgICAgICAgICAgICAgICAgICAgICAgICAgDQogICAgICAgICAgICAgICAgICAgICAgICAgIC AgICAgICAgICAgICAgICAgICAgICAgICAgICAgICAg ICAgICAgICAgICAgICAgICAgICAgICAgICAgICAgICAgICAgICAgICAgDQogICAgICAgICAgICAgICAg ICAgICAgICAgICAgICAgICAgICAgICAgICAgICAgICAgICAgICAgICAgICAgICAgICAgICAgICAgICAg ICAgICAgICAgICAgICAgICAgICAgICAgDQogICAgIC AgICAgICAgICAgICAgICAgICAgICAgICAgICAgICAgICAgICAgICAgICAgICAgICAgICAgICAgICAgIC QxVBPeCYFrRVVqJUTxVPQmGJXyAUKcAGJkAKZbDIWcXVNwYTb6L5kwBABwXRHrGO7aQDp9Dq0+DQoNCm HhNBY8ogFtyO5EQE1xh2XbMKusJUXad3RdKSv5TI3T NHLwRNwtIT9XRAhtpx7QFLTxULSohMHAr7pjAuRmEYL1ZGLwJnxaMH0XSDHuA1sganHlYUAvNUSQSTke MQOGVZ5IDtHlY9PpaK45IMDVYo0+KWeuwfZxEidBQmX3XQWdy0JdWAn5HD6QMJAbSofiq3YsDvgvEGTQ YAotLL5QMTJ2DSY7RFZwRb7AMZWaQ221saTtKJ3KTk 6XOnSzQG7wxd7EHoniRBYnEbtWAlz6DKanTP3SxODzPWoPTKPqSLPaCT2nLqriM1DkkwicRg5jFUvgIn 8kSXWaFO5hLP8sWVRaJQAxKjEdETUJID2TMNLuHPAziXKuCWFjQSPKZK7VOMypHFG8WaasiwEsxNLqGM jaQO4GYHBjmzHyTlaqBZAIHEy+Wq3ERI3rm4SrGOhy GCYaUR7lbb6GUIoTUkHfQ7O8hFMpM4I4FKygOc3KAWYtAEGtIqFqCVTXEUsbOL9OTL2wcmT6BB7OkXMa AMPaBMKdxWUpARg0I62tnXJvFLmeWR1EFDS+Rambo+Qo0GUCMcNKDvPCKqOyImLPZDAvNjD5WrO6GBn5Sv V2IyIF44cKqfddOvSXimHH3XWS2qGJMhDUARBH7QiR AhxO1mzoYySkMhPFLPPaQxE72ymWCvICVeUFA7RFMkOz6VABGdF3MsdxGlqWuqibFkNYBtGYWPFG6CJR djmyPfcZQfnRljXQ05bAixHV8KFu9XLxCtTV9wht4DhATyFr1OVWQmFB0COGTzHNNfRWYrVGO8UZKlJy FuQZlmTXDhJCXsAJU8LSPrKVXqCN2QJwQpVNDeSeF8 SpVdBHPzTUEnju1DCZBwRPKkRkLlNEAaXEUrPSYzMMgaYCWxAVRlYBV0TNBnMSHhIC9WRrCcJSRePMU7 UMHnRIWhTSNhtk9NEMOrSQGkNbUgKDRzPFHhNYClGTwvIUOiNBZeFHrsFDAwNHJaFI9PFpDnTMZuWHVf CmhsEGEkBNPzkt7EUVUgJZLlVZKwUVYlZQZrHFSmXC atRQTkWBW3VGG2KBAwFCUfAK9WBiLbYSJpIMH6MeRsGTXqOVQmbf8CPNDeIFPoPWN6QyRcGKRpIVHcWP sqTWPjAFO3Clu6XGQhRCQgQL5KYyAzEXXrQUP5KwInQTYpTJHdfi6LMORxFVJkPHVrQLFdRNQsXATzWB doULTqRGY0EbQ4XPMsQAHtKM8VTiExFGFaTKa8UwGf LRXaBVIjuo0LDPUgPEVcPSJ4LaFvOMNpGTFtDSiiPBCqTEK6VdZkSPLiZDOmUZ6MCdArRVHmMmNlOcLl ZYLsHOCvmg2XPQLxQKLwEIA6JsYsEHXeYAEeQRapEMTrUDTkQZI2QHTtFGFmMN5SPfWgQQQnSjK5ANBb DUYdIJWvhy0UODNcHVGnJML4RZHhZKGwFEOdOAgzEI SoWLKiDQS8KLFrTGLeIW8XKuZaXJFmGjUgJMYuCCLrHGZjex6XYNSbLXPqXiteYMZiZWEeWOVfRZczRS IfSVHfPzg0DJYfSWFbCL0RUhDsKQWlDbD4JvRiXOWkEWMfqb8WxTCubYtvre4IWSsIEu3JrIhqURHjFV uoIp6jdLVmCJEkJCMBMo1OuxAvOEVyMHGEQTuwPLKz ZWJ8UvmsADPpEWUgXVU3MFZpPuPoY2ZlGqMiRYYpZxFlQtF1UbDzV6TqOSKoVSK6Saz7CYEdX8HaREZp ZGQxNGVmZmY+OG3nVPr+Ho7My4ThsxD5nwNoIYfzSLH1GF3MLNNMC8CCEa== ID Date Data Source [id number] 11/13/2019 10:35:40 AM EDT [facility] Name Value Range Interpretation Code Description Data Jing rce(s) Supporting Document(s) Individualized Overall Plan of Care Note [facility] SNKUVz3sQwELIcPl63/EAFkeDFHtb2GaXBrkXJv6GKaaSGSkY8RtMJU1nU7aUGO9XSzZQhMxCyLxRIDj lbm [file] AgICAgICAgICAgICAgICAgICAgICAgICAgICAgICAgICAgICAgICAgICAgICAgICAgICAgICAgICAgIC AgICAgICAgICAgICAgDQogICAgICAgICAgICAgICAg ICAgICAgICAgICAgICAgICAgICAgICAgICAgICAgICAgICAgICAgICAgICAgICAgICAgICAgICAgICAg ICAgICAgICAgICAgICAgICAgICAgICAgDQogICAgICAgICAgICAgICAgICAgICAgICAgICAgICAgICAg ICAgICAgICAgICAgICAgICAgICAgICAgICAgICAgIC AgICAgICAgICAgICAgICAgICAgICAgICAgICAgICAgICAgDQogICAgICAgICAgICAgICAgICAgICAgIC AgICAgICAgICAgICAgICAgICAgICAgICAgICAgICAgICAgICAgICAgICAgICAgICAgICAgICAgICAgIC AgICAgICAgICAgICAgICAgDQogICAgICAgICAgICAg ICAgICAgICAgICAgICAgICAgICAgICAgICAgICAgICAgICAgICAgICAgICAgICAgICAgICAgICAgICAg ICAgICAgICAgICAgICAgICAgICAgICAgICAgDQogICAgICAgICAgICAgICAgICAgICAgICAgICAgICAg ICAgICAgICAgICAgICAgICAgICAgICAgICAgICAgIC AgICAgICAgICAgICAgICAgICAgICAgICAgICAgICAgICAgICAgDQogICAgICAgICAgICAgICAgICAgIC AgICAgICAgICAgICAgICAgICAgICAgICAgICAgICAgICAgICAgICAgICAgICAgICAgICAgICAgICAgIC AgICAgICAgICAgICAgICAgICAgDQogICAgICAgICAg ICAgICAgICAgICAgICAgICAgICAgICAgICAgICAgICAgICAgICAgICAgICAgICAgICAgICAgICAgICAg ICAgICAgICAgICAgICAgICAgICAgICAgICAgICAgDQogICAgICAgICAgICAgICAgICAgICAgICAgICAg ICAgICAgICAgICAgICAgICAgICAgICAgICAgICAgIC AgICAgICAgICAgICAgICAgICAgICAgICAgICAgICAgICAgICAgICAgDQogICAgICAgICAgICAgICAgIC AgICAgICAgICAgICAgICAgICAgICAgICAgICAgICAgICAgICAgICAgICAgICAgICAgICAgICAgICAgIC TyIJZpGQMkKUEtBZLfWNIyJCLfMGZpTMb6J1ruKHWu OAKcEX3sTLx6As5+AGhIAiVpUSR2tmWsgD8VMC6gi7PvYCxwJTVqt6WsEDb8UA5RREHdTLkvWR1IGKdu pp5PFMFiBVUhePBYv9rrQdIpKEL4NBWiOfguMC7LYVVeV1trufRlGKNxRKLXTW5LDlSgM4KjvR64RWYG Cj4+QHzpuoGuSihJQzBaYZZma1VkLLm7LO3TFKUoUs oel7ZzHeRkLCLGERfwJC9LWQO3PKEtQZQxIu3ZMONhG373zdHtTT2ZTd4DYeKqPM2ghg7GWhReGJSsKi tGYvh1QEzlLD1FlDAhJKfWsiEnioajkDWyiNvcXTLMfbInJMybSBArAK7pj4FyJ2LzNKDAw4OxVRV3TL wujPgbPAG0mw7pYZvoTSuEH5yvZFHjJO7gTL4mCEKq UYHvYhTsIQAELR6VHONkHEOeuFHrHFWaPUYQPA1XWVyrPGN2EjrmkaZycUYeKJyzJE4JZUDmgnKvCkVe MCBSDQo+Xv9NKB9cc3GhJMvuCHMyMH6sow2WKImPKwOpC9T5lAWuU6L6KWtlVg0FSIAtCBGoKmAhNYAO NNweOV5CTF4nmhK8IF2ExAUvAXRlACQlaCObHVu6H5 5jiJUqKBjaGM9GNBA+Rambo+Gk4XBOTnEDEjHMEkKwHpDXWFUmPmB4BjK8LYr3GkH6BfHQ83jOnavhNjXW bnLJ3UVX3mVUFnDZXWYD5YbOFrqE4aayScLmHcIGAYQtNkU36fzKRiNLYlHNMbBAWgYc6LDAIaL7Jccs TjiEqajsYoCHRdGRGAPN5UKQwaktPcgTRyyCrtZG51 bWphIV3YJl6LJnLoTH9ira2SsVOgAs1ZNHJvKK8DPXIwPNOpJJNfTBB6YOJjErPwWLyfHISmNPHvODR5 GZUuFMGdFX8DGtWaRTSbUHc4AXWgKAEhGUJlos5BZKTuMEHsIGWcRmKrCDUaYBVnSCbvFANeAXAkDVG4 ADEaDHVxTP7ULcDsLPSsMSUjEkPgLSJuUICiqi7VKJ LkCKPcKQScUDIlMSVaTCYdKCocRWIsQYHaZpn8WQOwXVOpJF0WEbLtDPPgETR7JSleDHQrACCxfw4QGZ QmLAVrOcC9MgPuOLIeUJWjDIkxEAWnJTMlKtCnOFStJKOgOJ2CNvVwNLCwSGP4VwwiLVXtANVjia6KPY JzSLLuHFDgINQpXCAdUTPbLRltXCDvDDJ7EiC8MXYu CJKvMO3EWjEdYOJlJRW0QNBzPDXaACMccv9KZBOpTZYmVio1YTUdIDWgUMEyVEtyNYRpCUI7IFU8WSGz IRRhGR6SSvEuNBXgCKqzIWGlGMPiPXThty2BERJwZWZjZZVvAoUzHVHwDSSkBDbnZHDsQHB7UIA7UKSp FWLwFA4MCzVgDPYqPYs2GOHeTGDiGFXdlk7SBRMeMM XaKHl7PqHeUFGfBKDjDIogESImLDZcVMA1XPInGMUyJV8ZMyIwOWOrSdY1EVJtISOxQZXrih9QCSLdTH CvRXK3XSAjHUXwYRAyWQs9jrJzwTXtPXk5XE5IO6YwnbLgYrPFMz0My265XKV4RLFaBj0EH4vvXy5iYT SeKYPNRx9ZWIs8AFH5SvNlHwA3WZKiAfDlBaCaBjn5 ODW8VZprENlbQgD+MShqHhpyCQWaKSthArK3UWY3UuTvAkIsFjedQ4BbRUQuXE1iTZPPCz9+DQpzdGFy oNsrEOWECnNmLHC8MIybFEENQi2Y ID Date Data Source [id number] 11/13/2019 08:29:55 AM EDT [facility] Name Value Range Interpretation Code Description Data Jing rce(s) Supporting Document(s) Progress Notes [facility] UCRXRh1mVdYGUfOn71/WXTjlZWNhk2KuGEsrZPb5RIsxJQYtX6DwBKF9cO2kXSB6PVlLBtNkZkGsDRKp lbm [file] ID Date Data Source [id number] 11/13/2019 05:11:42 AM EDT [facility] Name Value Range Interpretation Code Description Data Jing rce(s) Supporting Document(s) Nursing Note [facility] KSKOYd8aNcUKTdFs55/GTIgaTBSij7SzMCwcXFa1IVxbCPYhY1EdHHC7bE0qXHX5UCoIMqAnUmTxXGIw lbm [file] ID Date Data Source [id number] 11/12/2019 09:27:13 PM EDT [facility] Name Value Range Interpretation Code Description Data Jing rce(s) Supporting Document(s) Care Plan [facility] XROKZc4pLnSZIhYi89/QHBkyOJUnd8MoJTeaRLx0XOfdOQXtM7AxRCK5vH2dBMK6SIqFZqBeWhOpAOC4 lbm [file] ICAgICAgICAgICAgICAgICAgICAgICAgICAgICAgICAgICAgICAgICAgICAgICAgICAgICAgICAgICAg ICAgICAgICAgICAgICAgICAgICAgICAgICAgICAgICANCiAgICAgICAgICAgICAgICAgICAgICAgICAg ICAgICAgICAgICAgICAgICAgICAgICAgICAgICAgIC AgICAgICAgICAgICAgICAgICAgICAgICAgICAgICAgICAgICAgICAgICANCiAgICAgICAgICAgICAgIC AgICAgICAgICAgICAgICAgICAgICAgICAgICAgICAgICAgICAgICAgICAgICAgICAgICAgICAgICAgIC AgICAgICAgICAgICAgICAgICAgICAgICANCiAgICAg ICAgICAgICAgICAgICAgICAgICAgICAgICAgICAgICAgICAgICAgICAgICAgICAgICAgICAgICAgICAg ICAgICAgICAgICAgICAgICAgICAgICAgICAgICAgICAgICANCiAgICAgICAgICAgICAgICAgICAgICAg ICAgICAgICAgICAgICAgICAgICAgICAgICAgICAgIC AgICAgICAgICAgICAgICAgICAgICAgICAgICAgICAgICAgICAgICAgICAgICANCiAgICAgICAgICAgIC AgICAgICAgICAgICAgICAgICAgICAgICAgICAgICAgICAgICAgICAgICAgICAgICAgICAgICAgICAgIC AgICAgICAgICAgICAgICAgICAgICAgICAgICANCiAg ICAgICAgICAgICAgICAgICAgICAgICAgICAgICAgICAgICAgICAgICAgICAgICAgICAgICAgICAgICAg ICAgICAgICAgICAgICAgICAgICAgICAgICAgICAgICAgICAgICANCiAgICAgICAgICAgICAgICAgICAg ICAgICAgICAgICAgICAgICAgICAgICAgICAgICAgIC AgICAgICAgICAgICAgICAgICAgICAgICAgICAgICAgICAgICAgICAgICAgICAgICANCiAgICAgICAgIC AgICAgICAgICAgICAgICAgICAgICAgICAgICAgICAgICAgICAgICAgICAgICAgICAgICAgICAgICAgIC AgICAgICAgICAgICAgICAgICAgICAgICAgICAgICAN CiAgICAgICAgICAgICAgICAgICAgICAgICAgICAgICAgICAgICAgICAgICAgICAgICAgICAgICAgICAg ICAgICAgICAgICAgICAgICAgICAgICAgICAgICAgICAgICAgICAgICANCjw/fNSeV0qtlCBpzzG8Q4ig Dn2QKm6UWT8oo7QyWMJtBMbtrzYwBhwKOsNqJUBcEz gHTme3XYevIL1OtUWoK6IgX6LcGBwnYE7JWTKcRSDhwXLcCHKrNJIgJoD5SOVjGQpjHB1IqTLyAMutNX FeEACuQG5RNEJbJ903faKxBJ1EHs8RCpSbYZ4cqz0MQbPaIRKuIrqZIfs2OQqaFT7IuIYynXWxDcFbQG QSTzXiT0agf3UiVoYeGJLAQLpoCX8Ai0MfiZUbYSg+ Ay3OJT4de4ZgRVnnMdIfMO2yag4NNVfDZzLhO5RmrBmdPBUbuaLyGUfupaSbsGQGqaxpEIWyisXewacm Ge8kDDKwKX47FpXnXcWuETg8VuInME5sAIhnUZ0FGUH3CZyaSVPxCQVsA5tQBsWtMPaoCBGyoTynLX2E OzUcF0JwhvNtbCGkNxQqVQMEMt3+DQplbmRvYmoNCj I7WLNvb0LxHRn4AV1SJKYzSOifNZ3GYZEgpX4rCJlpMA4QEoDdHBMtZLHAQkIiA78rdIEwHNv9J0RbOd VkZGVkRmlsZXMgPDwvTmFtZXMgWyBdDQogID4+ID4+PUudGU9KMQdwbuTmEFFrTl0IZPQeZJGzVS4gDW YyTBUpI9K0wVoxPQRLUiFbD4kchmwiPA4cCYOqH213 fBkwvhHcQHWsCLGxZq6VGERpILU4RXNaoFEuFkRuGPFZAEbjAJ5NdVEaFDL7nJ6iWMqpBYBfTNEyN0sY HuQllMfgZD87uRzklbBwzMWeDPq+Qo4AJL6hv2CxSAs0ynTnPSplQUB1KPidDSBpNOWmDFCuEKC8LDU7 IMXIHwMwUNUdGXRkUZxfAPEaCHDioa4DCSIqZWWrNR HsEPOcFAPjZZVlYXjuQRBdUPUxZVYoLZNkHHSjKZ8OOtLaKKJnTRBiSGyuVJQzOUEqfp0BWXUoBUFzHL r8QBHyKOFcUNOsACtiLEOiNWUgVCV3ZAGdHLSpWR0GIsLjBHZaMBGiJLSdQPNsWOYbsf5FZWQxHTIpVx LcGYRuNJSkXTFfDEclTJYaOEZpFOi0OBYtCQVgHF0V ViPnPOMfRPK1YJupGACzFNVwui1DMIKcQOUbXhJ2ZKEuFQQvEWOaIGpuDXMlSFKzZRB1TKAlJMZzKV0I IdGzWJIuDAEaTxZsRVEmLRTylk2KFFLrXGSwWzT3KtKhRQVvOEQuSZkoTDQhBPX1GiReJZVwRDXrDK8M FdSuCCCnAHX5AKEoUJMdDWLytn1LZGHdQFBjMaJ5Jo VtBIEvOQEwJUfzDVRtHZG9TTU0AXVgVMSdII3LDtFgTYHsZTqcENAvRGJfVWFevh2ABHXbAFAaKFU7Hc VuBNEbULTiLDkcXQGmQBI9FXWtKEEbQUUiFM1FHmMmCMDnWiRdVRDbEPHnBVJzvw9WTGYxXUCyWIPgPd KvLQVgDRMpNLtmXGMoZOTuPSPnEASiUGKhEQ2PIdCn DVkeZUGMAhm1GAdjT8y8APSzNH5PV1Fjd6KdBfQjNDBBFUdpIX2szyQjDSWmKf6QH2kKGqinVgqlRSVv JZD0SqSsIczwGOSbJQG3SDm1TqZtPPGuCy6tELJhZKA3VLFuNrNjDuXnLTFePxR1LMQqFXE8EVJ3OzPv PeQyOT2KZf8CLoY1WYY3vRAxJe4VBiT6MZAWSmDiSA7CDZt= ID Date Data Source [id number] 11/12/2019 08:53:26 PM EDT [facility] Name Value Range Interpretation Code Description Data Jing rce(s) Supporting Document(s) Nursing Note [facility] WHEYJu4tDtMDGbEv06/ANSwwKQHex5NmOXbxPLg3MNcdHPEvA5SiNWY1wE9aRTG2HJiMNyCyZmCsEHO8 lbm [file] B1SiWaYF3GFu8QPhC7KGY9sKPzQl6QVyU1RZwDJbBxUU7ADRg= ID Date Data Source [id number] 11/12/2019 05:17:38 PM EDT [facility] Name Value Range Interpretation Code Description Data Jing rce(s) Supporting Document(s) Care Plan [facility] OIFYXe8pRlXTVqXh25/RHDttUGRhv0BvXSnkMJf7SQwfIRFgH6WpVLK9nI9sBRS8CFyZTyVeZwRjXRT6 lbm [file] ogICAgICAgICAgICAgICAgICAgICAgICAgICAgICAgICAgICAgICAgICAgICAgICAgICAgICAgICAgIC AgICAgICAgICAgICAgICAgICAgICAgICAgICAgICAgICAgICAgICAgDQogICAgICAgICAgICAgICAgIC AgICAgICAgICAgICAgICAgICAgICAgICAgICAgICAg ICAgICAgICAgICAgICAgICAgICAgICAgICAgICAgICAgICAgICAgICAgICAgICAgICAgDQogICAgICAg ICAgICAgICAgICAgICAgICAgICAgICAgICAgICAgICAgICAgICAgICAgICAgICAgICAgICAgICAgICAg ICAgICAgICAgICAgICAgICAgICAgICAgICAgICAgIC AgDQogICAgICAgICAgICAgICAgICAgICAgICAgICAgICAgICAgICAgICAgICAgICAgICAgICAgICAgIC AgICAgICAgICAgICAgICAgICAgICAgICAgICAgICAgICAgICAgICAgICAgDQogICAgICAgICAgICAgIC AgICAgICAgICAgICAgICAgICAgICAgICAgICAgICAg ICAgICAgICAgICAgICAgICAgICAgICAgICAgICAgICAgICAgICAgICAgICAgICAgICAgICAgDQogICAg ICAgICAgICAgICAgICAgICAgICAgICAgICAgICAgICAgICAgICAgICAgICAgICAgICAgICAgICAgICAg ICAgICAgICAgICAgICAgICAgICAgICAgICAgICAgIC AgICAgDQogICAgICAgICAgICAgICAgICAgICAgICAgICAgICAgICAgICAgICAgICAgICAgICAgICAgIC AgICAgICAgICAgICAgICAgICAgICAgICAgICAgICAgICAgICAgICAgICAgICAgDQogICAgICAgICAgIC AgICAgICAgICAgICAgICAgICAgICAgICAgICAgICAg ICAgICAgICAgICAgICAgICAgICAgICAgICAgICAgICAgICAgICAgICAgICAgICAgICAgICAgICAgDQog ICAgICAgICAgICAgICAgICAgICAgICAgICAgICAgICAgICAgICAgICAgICAgICAgICAgICAgICAgICAg ICAgICAgICAgICAgICAgICAgICAgICAgICAgICAgIC AgICAgICAgDQogICAgICAgICAgICAgICAgICAgICAgICAgICAgICAgICAgICAgICAgICAgICAgICAgIC HtVFYmEVBkBSMsYCLiOFVcGXUdRKLfRTGtSERuPMSiISFrWRFoQYHeELFdBIBfQQZyOVp3R0zgXVDdNN EgLH1nTLg3Mg1+WCiTJlBbDLN2tdPuoD5VPX3ys4Mz JCmjSEYam6AhMMn6JJ5SLNWjNIndFO9GTFxjus7MVFQdUYAyaHXAy8sqFeKrQRQ6HNAyGejnJK6JDOOn F9mexbSwOEPdQXYYIY8BCaOxT5NtvQ15TLFOIa2+ASjueqShBwkIGeXoFWRol8WhWJa0OW7JOZFgYfmf d2DnIqLvHUPJTTakXT7MAIL2FYNwROZkNm2KHFInO3 78dxCbSW8MEg4QFyJnHE7mqh0RXmWtWHTwDbcFPya8WTocNR9QcJDgOTjCZCLxXFYcRC4sSyskMSRlbi HHMfFsrNQcTTVCFCH6DVdwTL7kVVSlUVP4LkUgYGXKVE1JKYPpMGXrqETaVHGpMHNXOD3FDEgsKBX6St tafiGdiOCoSCpmFJ4NTZNvbmCiUsKvCBTYWBp+Pg0K FB1zg7IsFFcuCMTsCY0gxk1UJKyVLwGvZ6J4rZQgC5D7CFncNb9KFDUnBGDaViCpBSKMOMazZN4QYO9l bkZ2TS7UaTXaVXFhXFIqtRMeQFk9H80xiUUaPPlrRF6NKRU+Rambo+Jz2KWCNgKPXxZKLkCsLgZOENKbZl M3PrX6HYy5NvT2TjOF27rTsfpgPoWDvfAP0XQC7rGH GqRYZASM5AyJKcqS7tysXuTfKxTFDKXcNfP58dyXOzMITkICBbBRArYw7MIVMjE2RoxtMxaYpmpsVmHH UwNUERQN2KDAnnfyBrvUYxqXioOT64cUtoOM4RIx4CMuTgQS1ibb1EdHTcMq0UDWEuWH8JTYTwBCTlHF OsWHO8VKMwWyHfBDovFIVsKMWyCEG9JJDmDXGvUP1D IzWeRZUyBUn7RaRsXZKxMJFezq0CJEBnYRFaIEOdKtPvMHFxRVJgJGfdSWUiFVRcPDW8PEAgMJWwON0W KfYaRMZtJQZ1WOGqYZFwNPBkds2DFYVmFZDyXRRxJFHdSEPvWKBkWXwkFQQkDBNdYKB2YTYnPQIvMV5J QxApBGEaMAD7QnkvKPVxLOWkuq8SNZIfHEZkUrs4Rt AyWNHbEGWpSHzyHUTnHNKwDZZeATNrWQIsMF6MNhZiHSNyVUOmZRqxMQZyJNMayb6UMOUiJBNtQEZ7HG SrXVXiIALaLKkyZTIuBDF6MdG6RYCoEOQoWJ2EOqItQYTlUEH6XMMaISKfRGXeux8BBKXfLVRyEgA0DD CrKXPmCTDfQUxbJILlTHQ0VTC0JQXdFKNgZA0OPkSy ONPsMFy1YVRnRTOlQCWadc6TWDSwLBAbWKW5SeIxUEDnYCOkDEfjVZEwUHC4Svy8EZGwKLIlEH8SHkIx BKUvTQc5WUViEHGyBRBuhh9BIXKeJTZcTMR9ErZmQMVjWNGmZUcdFEAjCWYcOmA6AXJmTPMwZW5XHuDr GZYlLeB6QpYoMTHoIXBvfa0NLJMpWSCtKSpcDOXoGT UaMZPcGEm5lpSkkASmVPi0YV5GR5YjlpZfYoPRAv8Yo423IIF3MIHtNl5YF2jiSf6jWEWsYFYUQq7IXY d1AVW4BfX5WYZ1CWToSXHdMcY9ZsHrCMF4WYQ9IuM0Uot+STtwEKjqGcgrDLhiPEJwYKS4OFbvULHlZs LlEyg2GdWvDL4mRJIQVm4+PYpuvXGqaFzrFDQSMaExDUJ4XNcvAHYQMh9U ID Date Data Source [id number] 11/12/2019 03:03:53 PM EDT [facility] Name Value Range Interpretation Code Description Data Jing rce(s) Supporting Document(s) Progress Notes [facility] ESWFPb4xIoZRDrHm17/RVVvjMKSly2BpUTwxLKk1NTudYHNyJ9XsIXD4kF2kJSY5ZDwYTeEcJpNvVER8 lbm [file] ICAgICAgICAgICAgICAgICAgICAgICAgICAgICAgIC QtABQaQBNeXLPoFCLuQXThNITkQQFcIWQpYIHxPJEeRY3CTXPdDDOnFTJxHQLzWKHrDPFaWCFfQGFjPX AgICAgICAgICAgICAgICAgICAgICAgICAgICAgICAgICAgICAgICAgICAgICAgICAgICAgICAgICAgIC GzUXQxVHIoJADcPJCzGS5TAXAgTDDlTZZjVWWbSZOu ICAgICAgICAgICAgICAgICAgICAgICAgICAgICAgICAgICAgICAgICAgICAgICAgICAgICAgICAgICAg YEUsSBTtMCLjXTMyAUWfVHBrXPSyDOYiXN1OWKLzZKHmDIBbYILkDWAjZEAvAAJoDKUtEAGbCMNpNRRb ICAgICAgICAgICAgICAgICAgICAgICAgICAgICAgIC XwGFFgGWZxKVQlFQIyFPUkMLGvNGSdHIQgAABhVLNwSKRvZY0UFUWlLATbUUFsUTZdMUOfWGJlWYCoPD AgICAgICAgICAgICAgICAgICAgICAgICAgICAgICAgICAgICAgICAgICAgICAgICAgICAgICAgICAgIC TmTGNzQQMiKXDdLIPlSTRiBV5RXIGyGSYlWVTxODIs ICAgICAgICAgICAgICAgICAgICAgICAgICAgICAgICAgICAgICAgICAgICAgICAgICAgICAgICAgICAg DCVcKUObHLJkZYSnMKTxZGDnXTJaYPIwOHOiSD4SEYAtXFImMZIeHNUjAIXwWGMpJKVxEABgFHVgMYNa ICAgICAgICAgICAgICAgICAgICAgICAgICAgICAgIC AfIDMzRZBnDIYyMLMjYTGbFJGsCQXsZIJsXACiDQXlXJPmJLFvMP8YJXScLKFsVHLsMNTlNMUgTFUeJG AgICAgICAgICAgICAgICAgICAgICAgICAgICAgICAgICAgICAgICAgICAgICAgICAgICAgICAgICAgIC WpMLXgKLGoXOKfDVVoBGAaRWHcAD0LRSErHLTmQGRg ICAgICAgICAgICAgICAgICAgICAgICAgICAgICAgICAgICAgICAgICAgICAgICAgICAgICAgICAgICAg HCSkXGEiLWKkSFKxCUHfSKEmXVDwDDEbIREbSATgEI1ECDNlWMLoLIEfBEEsTARuOBAsWCRlUOSlVUGk ICAgICAgICAgICAgICAgICAgICAgICAgICAgICAgIC WyYBJeXZLpLPQtOLWeGMUoUYAkWSAaIRYlEAMmGFKjOWAzXUGbMISjFD2XYM27sWZuf2I6LYMoIX6ryn c/Pa4DHAdskhFxaCCnUO5HHiJlTM4jtm7FZxRhWP3qbl4IWLoURuHxU7B1sRCrBXKpWXEKRoNkH40wWR mfFb88PFqbZYSaUpXlEAi9Ez3AYnYmS7yxXEYhRdH5 AWAvHfC9IVCeOlL4ZHLoCuSxHMwjYP6Lk7WccAThCGv+Hi5SQE0ng7DmKCwbEtSlSV5vfi1PUThTJgYx P7HjzcU1VWRoHXMaJe2WNJZrDYGlaQXkKuCpSGMFMoNiF1LjmE72PBPMFk3+DQplbmRvYmoNCjMzIDAg b0CtFBs2DQ9QCHOlLRe1aRJkHIIgB6Xpa3HhQu85TB AuDudyFNm7IpF4gQFWKTLyZRWxnCEjHRU8KKexKB6tHSAmAREeXcAiBJTDRW2KISPuUQVsiXXxJBBvWU SRDK0ZFBxhUPG9ElslgvJliLUuUNebBC9GQWRwnpPyGdJgKEKTEXq+Ef6HTF7vf5JcABgtTWZnUF6wan 8RSKrKCpZzW7Q6nXAhC7L5CFpkZb2XXCPxPUOpWsRr NSWAUPkyGI8RZY1tvqY8UP0EnDNhVHYnYJFxnQMnGWb3C86niIZmCPkcII1BLUI+Rambo+Dg8JXTOkWECm QZGlSoStKIQLGdQcR5NgP8OFv6DnX4AkQS81tSymwhZvLOvbEP4FDX7tXWOmESZPHT4VbOXhiQ4falKz IlUdDGNWSsRtP83ehHRvOFStTTUgANIzMr9HFYJlK9 UxttQmuIxsddVqXKDwPJTEKN6EDWoicbDphRIpgIycIM11eMfcCK5SGy7XGlTtBP2ebt0LlSXoGo5ZUQ WpKJ2BGYFvXOInKWFvKJF9NJVmQcAoWYddARZwYQExAWR2XZRbJYKuIY1YRpFxXNXdRnOlGCBgRSIsBX Qgjr6FDQRbKPEcODSfUuDnBDKlYZNiMEwyALTmOMYj WQF4VAPlKTDaSG8HRsFnYNSdKKRgDwFaPJHqQMCfgb4DMYAjTCIuVwPtMFRzAVKkSYZbVPyvJBFfFJI1 EQlzMRYoOYKhWM7AUvVcXTRgHXB2ZEDbOHTcPAPfgr7HVFAcAUTbIkV9UCZpLSSdZSSsBFsqSZPrKII9 NXG2XBEkIRFvVO2ZJuFjJRUfYJw9IEthQFAdNIAhup 7DPTJiERVyHpNeWTYlXJYePTNzZRliQQKwLQH9Qwn3SJZyFIWmNU2KPhPxVOUeJMz2CKlnFWGtYIHuoo 7EDPQnMWDuMMr3PAPjYDScUDZyQQeiZSVmIEH0XTG2YOXqFLZaAF7GOhMhPUKmEiD5IOaeEPNaXVKnbr 0KMDAwMDAyMTgwMyAwMDAwMCBuDQowMDAwMDIyMDEy RNXfOIPaWH6RJjWrXLQwWuXtZHCcIQQcAYCkjv3EHPJjCVLwXxO9DKOtCNUfPBAnFWjjXSBvOYRjLjZa PTXiIRAvBU0TUzJjTHQiDyK1RlCiHIOlZUCqmq0WAVJxFEAuXwibVEGzVIPvQUEgREqzMTNdCFD9EzPo PXPsQGBeSN3QQaMtDHSbLzL7EgplIGXaEXTlua3GJE BaTRTzERDbAVEaIUSkYDFaQUvrBULeYSB9XIAyBVVoYKYqOY1NLnAkROHlGxWqOAWmQTVrFXKgae4HUT KwDWZhWdYyLURzRQGdKOGqLDiqGIFxMQM4ZekxUGLaAMXgIV8TKaIeIRXxGczwJbBdFFGmDBFgwr4GBQ IzMUBwFFO4ZRDvWQFnECMvYVhwZQVuPTE1EYEhFOHh RWAaQR6IYfUmZDmbEEFNWwz5PXexY8h9ZGWoXP9YX3Dtq7DwFhOtLOLMXRatNL0fltXmJSCfDw6PW4eZ TzvfYAHzC9Z6QhG2YDN0TbZ1YPOhBaF9O0K5GZL1DyG8MT2bWCWsYhPzAzaiIGaiVia9PfWoVdH7VqG7 IlNwIEL4RCVgNuHyOU5JXl5JDhH1FOT5eLAgEp4YAyb6MKZVSmKjQC3ODYi= ID Date Data Source [id number] 11/12/2019 02:37:12 PM EDT [facility] Name Value Range Interpretation Code Description Data Jing rce(s) Supporting Document(s) Progress Notes [facility] UFEVSl0dOwVEMoJo32/SOGtpNBUxa1YoHKjaWAx9DOfcGEVbB0ZcJXZ1vZ5tTSQ7BByNSsNzIlSaMSI0 lbm [file] AgICAgICAgICAgICAgICAgICAgICAgICAgICAgICAgICAgICAgICAgICAgICAgICAgICAgICAgICAgIC AgICAgICAgICAgICAgICAgICAgICAgICAgICAgICAg EIBzVRZhJE1HNRGcJMEpKCZrZMFsNRCkKPYwZEEpOFSoXGTmAVWmJEZkARUbYMGqILLfAOPyRTDfNPYo NSRoRMKaQALeGRVrGWQlSNMlDEHhDMKpCLMsUAUcPYXiIJYhDLQhBVPgGFSfLPDkZV6NISAyETHuPAEp ICAgICAgICAgICAgICAgICAgICAgICAgICAgICAgIC AgICAgICAgICAgICAgICAgICAgICAgICAgICAgICAgICAgICAgICAgICAgICAgICAgICAgICAgICAgIA 0KICAgICAgICAgICAgICAgICAgICAgICAgICAgICAgICAgICAgICAgICAgICAgICAgICAgICAgICAgIC AgICAgICAgICAgICAgICAgICAgICAgICAgICAgICAg ASChGUGoBWIcEF9AVWGgTAApAPSpYLVvWHIvXNFjHMGkTSJqWAFjFKKnOLStJKDdNFVsTXJsNRZaPXSc UELwJFYyGXXuZASmOOSrPMMtIHFtOKBeZSWkDXWuEJEeEMYfHRIuQUGvEWUpQRQdIIIjAO3YUQNoHYKm ICAgICAgICAgICAgICAgICAgICAgICAgICAgICAgIC AgICAgICAgICAgICAgICAgICAgICAgICAgICAgICAgICAgICAgICAgICAgICAgICAgICAgICAgICAgIC SkCQ3KSUPeYDMiKEKmUOShAPEeZIJySVGxBNGcWBFqFMEuXKHqHTIdRBPyDVSuTQLoUHAiFELrGRFuBS AgICAgICAgICAgICAgICAgICAgICAgICAgICAgICAg HSLeWSZnXHUmAPKkKW4VEPTtQNOxQUHoLQYtYFFeEGWnTCLqIDEzBCNbXMNlZRUyEPBjIAWpOVQlCFAe XXSsMYNqSPVeUQYaNRRuZVEaSERwTUYvIYSdKSNiQJDmLFXcTULfEQAfKBHjQGByJRGdBRTdSL5PTSQo ICAgICAgICAgICAgICAgICAgICAgICAgICAgICAgIC AgICAgICAgICAgICAgICAgICAgICAgICAgICAgICAgICAgICAgICAgICAgICAgICAgICAgICAgICAgIC WlZRIwNG3MAWMxMSIsMSAxNOJcEHGfMVQmTWXeGPGeNLCoDSJyZBVzJBRfYPLaIWPuPDQrUINtNBPvPV AgICAgICAgICAgICAgICAgICAgICAgICAgICAgICAg TVMjZGQzAFBdCIPqDXXhPE0UFZ37lBCcr5S2ARGkKJ4xdlq/Vu5EDZabicArrOCwDK2YIcVwLO3wdc3Y RvDjMH6rpp7KYPnXCeThH0A9oUKhTZLeKSKKKnTaF72fURgtTg88EZdbVEEvWqHkARv1Tl6RFjGvT2kj IHNpQiO0AZUxImTtBHqoTU9Ze5TnfSQcWRq+Pg0KZW 1ws0SrMBmnFDBvXD7gjn6CPLaMBbCnW5YkjgG7QRY9CIVlRb7DXFGiLFObqDRvXrFvAWPAOfVsD4KcaQ 30DIFYAu3+COarmiDbTvzXMbB7SAGyx9DdDJm3RL0RVSJzTJs6hXExHTIaA9Pim9UsJj26QWNlQbhcFB x1NrM9nBVXXJUqVPYmvYPmGWM9ERrzHO8yHFChKKKc GrI0XBFBIC3ZNVDjBLEqvUUpLTEwLSGVUF0CTLvpLNT2JdxywcOkqWVaSYpqQK8YKBFbhtCkZhLkAVEL DQo+Fj1FIJ4zm1BmJTqaChSzBJ4xry5XYMhYHgAbR8L5wGGpN3K1FDazZr3JVKIiJSCxVdBmARHJRBjc QV0QJT4gtmT1OO9UwEItITGlQCSlpXJyZGh9X44yuH PwABqvFL4BEBL+Rambo+Wq0NQXRwGBYnLKBjPbLjMUKMMqTsB3HsF6FOo2VvP8OdJR22mDrpjtFhPQmxVQ 5AKJ9sQTPgIQORAM5XwQQpoZ6zvqLfAXEoDNVXPpVaE36dvEWfSREyHZQ5ELTdIb5FCBOpY8NcfbQkeO echzCzRULzUMAWZP9UDVtybyJfoWIsyLxeLF99xLnz CR4EJk7EUbMhYQ1miw6FgPMrFo6EALQxZY9TLCShTTYtNTNwSOG4XYXrMgYuCVuaGWOiNJOaEQO7KLVs EZFfJY3NLgHzMRVjXaQzEeAmCRNiZSGror6CUZIdJPDbEaw1OYFxDQQcHVXkQJbxQMEtUGQdXMR4KHSv YJZhMP9LDyRmMVMgKTVrFTJzUEIdKVQiyi4JANLpGC LmPlR2VQRuLQMqCSQwACllNYRxSZNuFZQ8XQUuBDVqOS4RPyQpZLRlOJG3GOfpUSDiRJLakf2QHHTvKH KhSjurRgEdQQNzYLIqCIefXYNtZTX0BvGgLRBeVGLrLX8XYpYxMFVuGCB6QZytJQFvJDAmsf8TCXTgXU ApBBI2IZVwLHJvKLSxUYftVWXqZXG5FCaiBTUzTETq YO7KBbLnWKArXTe6JFGeIAZxNNKuox8CQQKjKXXnOENcLXBcVNHsNSNyDDhySJPuMJH9SbB9EKEmLNAy NS4UQnTiMVYpTCf5XFQrOKWwYFTflh9GZVYyTEPiNKH5BJZqFOHjQLNmNLazGFVbEAK0YZR8UGOsXLUz EV7QLyOyBHLbEHq9JNUuPFEtFCWywn3JRCJoLZHdKW I9VELfKZUpPPKfJWmrULNtTPEnKMUiPKNmVSGsXK1CZiUdFTQiQtEtAWEdXAZtKSEdoh2CUAEoIOTgST O3WCBiFQFsASIvAUpnJTPeTMOpRHtjFRWqFUSvZM4ZOlZaUMMmQmQ9ZEAzOPTrXYHrna0ATMJgGASvFu MdBgGuDWBrCABgCUp1iaTwxMSwEOf7DX0XF1YwyfGf WcdEBg5Oh809EOC8DZRvUr7FU0lgLb1jVAAvDDNILu4UAHe4GtYuUtgnJCA8FqedWVBeIyq9GCBeOmL6 WrcnWJR7EBv+ENusQMN4D4ZzDhwuDgR5IVXyWbd3AYCbYMtnMiXkZyHiQK8aQBJEIb1+DQpzdGFydHhy JXMKHrHnMzP1YHkqDIIHPj2C ID Date Data Source [id number] 11/12/2019 09:19:00 AM EDT [facility] Name Value Range Interpretation Code Description Data Jing rce(s) Supporting Document(s) [place] 0.70 mEq/L 0.6-1.2 Normal (applies to non-numeric resul ts) [facility] The above 1 analytes were performed by [facility] [id number], ,[place] [address] ID Date Data Source [id number] 11/12/2019 09:13:00 AM EDT [facility] Name Value Range Interpretation Code Description Data Jing rce(s) Supporting Document(s) Blood Urea Nitrogen 17 mg/dl 7-18 Normal (applies to non-nume lorenza results) [facility] Creatinine 1.03 mg/dl 0.67-1.17 Normal (applies to non-numeric resul ts) [facility] N-Acetylcysteine (NAC) and Metamizole conteh ve the potential to falselydepress Creatinine results. Baseline values before medication adminstration are recommended. Patients undergoing treatment with phenindione will have falselydepressed results. Patients on phenindione therapy should be tested with an alternativeCREA method.Toxic levels of acetaminophen may lead to falsely depressed results forpatient samples. Glomerular Filtration Rate 77.00 mL/min/1.73m2 [facility] GFR Reference Ranges:Normal Function or [...] of Health and the National KidneyFoundation. The [place] method used in calculating this result is traceable to IDMS standards. Glucose 85 mg/dl 70-110 Normal (applies to non-numeric resul ts) [facility] Sulfasalazine has the potential to false ly depress Glucose results. Sulfapyridine has the potential to falsely elevate Glucose results. Baseline values before medication administration are recommended. Calcium 8.8 mg/dl 8.5-10.1 Normal (applies to non-numeric resul ts) [facility] Sodium 141 mEq/L 136-145 Normal (applies to non-numeric resul ts) [facility] Potassium 4.3 mEq/L 3.5-5.1 Normal (applies to non-numeric resul ts) [facility] Chloride 111.0 mEq/L 98.0-107.0 Above high normal [facility] Anion Gap 7.3 [facility] Carbon Dioxide 27.0 mMol/L 21.0-32.0 Normal (applies to non-numeric results) [facility] The above 10 analytes were performed by [facility] [id number], ,[place] [address] ID Date Data Source [id number] 11/12/2019 08:05:44 AM EDT [facility] Name Value Range Interpretation Code Description Data Jing rce(s) Supporting Document(s) Treatment Plan [facility] LPRIGw5tSzIIWwZm42/RDFvcCTGww5WxLRmbCTt0PQexTQJbX0ZnYJJ2nN8hDMK5MFoRSqWjSzJuHQF4 lbm JyMxeJIdLuNETmXiwXPvNrAEmuKylneEExDG3TwCA4FSPqD32uGQWbHKRgZ9QrTAKqBuX+Oq7BYACyiC WbVF5JCnkX4I5di0i3Rw+/ozjn5FP4hvGR4JijrmLUiQ0KfgjN7yFWbB2cPy3kIoc9OixH87rhXWZMe0 HxVTxkrTrnPuSIRM7MR+wuVhRj+t+/1OxHLz7y6n/d m2Je7UVn/fUvbH+kK2z85m6AH1AUmRj4aY2H/qoqvz2JsO4pRbMTlajVVpjTENzG2AAbavHWX+bslr21 OX/ChZlfJF4/jSgimmwNzbN14ErX1zYQAr42JRwkCCZLx2+Np8IsrjEmrNbHFqx8oBU0yzZLyoQfg8BW FuirBv5pjsmjSDJU+JcOboBDele6Ba/Gcnn5xBFRyh khi0nMixnwvlu+3AtClFEzvZE82jR+UFJ6wTZyOyZVrLScfLizgOhilUrDXgjI2v3zv50K9QONc/RVRh SdbIlFrdHKMDI96LPj6Ng8kAb6FyFnOHquTlK4gfc3F0Mw8tEiB9W8YT5Q17l4AW02dFVko3rmosrNLl tETW62sWf9gYSdO2ybryYe2qWEE9PLZGe6fNeCMeKp JZWuqUeG7UPTIq5CfFvbPo5bJM28S4CxKVpibevb7yUsV6mTW8UhlpxGT9p3XWQbUVg5rG42qbO+K9ab wKuwjNYuP3HP1yax/0MR99auO4nl87yi3NytILQJpyUcIDjOPXbGnGSOvtK9D0eNJ2qbP24kAA/eEur/ dVlgJIR/UKpBh6BNlvxY18jwiQFgOUVORKTKpJM5gZ dDGJ+YxBYp3vJZ0G0WsoAUPDhf6j2qK/Zxo8OnBeQz5jpgUyQQMnhNqq5fSP+PREnF7w03Xv/dice maker/y/M [file] ID Date Data Source [id number] 11/12/2019 06:12:12 AM EDT [facility] Name Value Range Interpretation Code Description Data Jing rce(s) Supporting Document(s) Nursing Note [facility] TDJFAu4sOyTAUhJg48/VXYpwERPdk9GuRHqaWOh9YLajAYCpP6MwXAK3vT8rJBS2JXyWXfFdXcPvDTX0 lbm [file] ID Date Data Source [id number] 11/11/2019 11:19:28 PM EDT [facility] Name Value Range Interpretation Code Description Data Jing rce(s) Supporting Document(s) Nursing Note [facility] QLURWe0cCzXZFkOb75/FCVofMYAxx7QyCJtmGHa9BRipEHRzP0MlXJZ3cH7yEIZ0RZsKHxViLbJrAEW9 lbm PyIvzMJsQuGQIsPwcXVzEjAMrbBujvyPQtWI8UrTO9JEMfK18tHTGmFGZbS5MjOVp9ZM9+OFqgION4hb UvaV3CEAYNLS2e1aZMj3ybd7dTQrgl70a/SlCLDZDWVCQhBzUOG9xhSOM/JI4H987jmZ8v53wTsark8e npugrx83n+L1aAWP2h8GYrUHF1o/cqNYPxAot [file] J6C9YoN0RtV5RVI4XjG+UB8gAJn+Ok8Mv9TjvvZ6ufIcHTtfKAu6Hi7VWUNJN3HMPu== ID Date Data Source [id number] 11/11/2019 10:21:55 PM EDT [facility] Name Value Range Interpretation Code Description Data Jing rce(s) Supporting Document(s) Care Plan [facility] XORERg8tQuTDRuNs69/IKYqdPYDbe9RpVSrnZPr9QMgjIXYtL3IvVCC7tC3gEMB0JEwQZjNxHnDaMPA1 lbm [file] ID Date Data Source [id number] 11/11/2019 10:32:14 AM EDT [facility] Name Value Range Interpretation Code Description Data Jing rce(s) Supporting Document(s) Care Plan [facility] OYLCEs0iTcSOCpKi25/WDUuyXDRrr8OyULmxXAj5GSfiNGPvF2KwDZR5lS5dNIZ2NFcDUhEeNaVmZXU5 lbm [file] JPs9LQ5QMLT2AZDoGp3YYKErJT2EGUDpCPXpTGIPVr BwXOKfNgGuIMZuUCPQLTtcMFClZ0NtDIL1TMMwXf1+ZMccGM3RH3VmIPF0MMp3ZU1+EOsdVJ4BhNWEC6 AreIMqWDjxF7LZPT7ASBB3LP5ElREvXO4SlSLQL1JypTLzZz2qSESat0XtYf6yR7OVIKVQMIGzWOvaIN smGKNxPNy0U5U4BIBrA2OUV010mIOojEy5Ep7pH5QI CJsPPzIlIRorEYeuEATlFNw3M4G1FOQsP2PEZ5ZbAiFltcQlS3B+VfVuFMFSBR4JHIFKREx7H2H9pVCw Y6J7gCwQgVS4CN3OKF4DjNPjjMCey07+XqUYBpSxW9DJC2QGSZ3JQWc2A8L6qDYdJ7X9nPoMnJJ5TG4D HZ0EgEvflMJhJw1bZVjeUCP+Bl5WLg2KQvUgGH9mbg 5SMeFuJSUyIhmMQqm1V8wsznh9wALqGiM4Z5Z4OqT4nTXhOM9KK4W4jNDvFDI6OXLdnUH+Py0Nv1RrDW QuWLs7M0bkEPEjYACtIpVteV08K++0wmdbgLV9T5q2JHNRiNHyeQdWwrYlK6bPBXQ2c6X0VUi/Pg0KIC Z9hBj6aJPuGKVsKFc0iY9zkKi5CrNxIE44BQSbBQbl vO7nLlv9R9Cmr0HfVp7yCr2fwKNyZa1JTqDfILU4hpBrQkFWSeY1mWbcqlpmXIQ5L7u9xEP7Um22z7ki ygAnw7YiPtY9VAyiVVExZyNmdtJrYNY6dgNzqM7dyfYsWs0KPQLzAEqbkhLdGlYLBm7MNfShWQ43Dpcf sD1ksGC+DQogICAgICAgICAgICAgICAgICAgICAgIC AgICAgICAgICAgICAgICAgICAgICAgICAgICAgICAgICAgICAgICAgICAgICAgICAgICAgICAgICAgIC AgICAgICAgICAgICAgICAgDQogICAgICAgICAgICAgICAgICAgICAgICAgICAgICAgICAgICAgICAgIC AgICAgICAgICAgICAgICAgICAgICAgICAgICAgICAg ICAgICAgICAgICAgICAgICAgICAgICAgICAgDQogICAgICAgICAgICAgICAgICAgICAgICAgICAgICAg ICAgICAgICAgICAgICAgICAgICAgICAgICAgICAgICAgICAgICAgICAgICAgICAgICAgICAgICAgICAg ICAgICAgICAgDQogICAgICAgICAgICAgICAgICAgIC AgICAgICAgICAgICAgICAgICAgICAgICAgICAgICAgICAgICAgICAgICAgICAgICAgICAgICAgICAgIC AgICAgICAgICAgICAgICAgICAgDQogICAgICAgICAgICAgICAgICAgICAgICAgICAgICAgICAgICAgIC AgICAgICAgICAgICAgICAgICAgICAgICAgICAgICAg ICAgICAgICAgICAgICAgICAgICAgICAgICAgICAgDQogICAgICAgICAgICAgICAgICAgICAgICAgICAg ICAgICAgICAgICAgICAgICAgICAgICAgICAgICAgICAgICAgICAgICAgICAgICAgICAgICAgICAgICAg ICAgICAgICAgICAgDQogICAgICAgICAgICAgICAgIC AgICAgICAgICAgICAgICAgICAgICAgICAgICAgICAgICAgICAgICAgICAgICAgICAgICAgICAgICAgIC AgICAgICAgICAgICAgICAgICAgICAgDQogICAgICAgICAgICAgICAgICAgICAgICAgICAgICAgICAgIC AgICAgICAgICAgICAgICAgICAgICAgICAgICAgICAg ICAgICAgICAgICAgICAgICAgICAgICAgICAgICAgICAgDQogICAgICAgICAgICAgICAgICAgICAgICAg ICAgICAgICAgICAgICAgICAgICAgICAgICAgICAgICAgICAgICAgICAgICAgICAgICAgICAgICAgICAg ICAgICAgICAgICAgICAgDQogICAgICAgICAgICAgIC AgICAgICAgICAgICAgICAgICAgICAgICAgICAgICAgICAgICAgICAgICAgICAgICAgICAgICAgICAgIC TmMKZjRBQgEIUqFQKfDWExUHZqTTDqDHItNTi1U4qsOTUkHTWgWZ6lWOi4Zt9+IBzRPvSlCJC5lxDoiN 4PCG1qo0WsGXreXVMnp8LzRAy6OE7NZINiDSwnLG5K TChcbh4GCAToNKUixNELi4geNqVpWEF4PQCdIyqmCL7DCBKyT8njroZdGZHkNHVWSS4QZzKoU4YmxR74 IDENCj4+AJybocTjDukZRjQoGWOck5SmCUp4MN9IVRXmGymho1XhTySfRGBEGZqxCJ9XFDZ7YYVpSNEf Ut7QXGToI210ovCgOF9ZQa4UVtQbDH9hfd4MFlPfLO EgRvnXKwk4OMuuBQ0JyARlIKzIFBEpRHIlPK0qBwksL5veqTT6k1KnDFGdCHQfwsLlRR7lHQBGHVZ0SD wgOU7mSNNeHARmKoNyJGPYZT6SCIFdLZWtuVPrIFKxTAZVJJ0ZSJdwEUT3NeufflLngZXdKJbaEE0TRT JlbnQgMjIgMCBSDQo+Hh3DUI2tl5PkSBhmTUWhQL4a wp0GZBzUXfPyO8O7vZPmY7N3PVwbBd9XMYMpNXRcAtTtMPSWQCovWR9OGS0jmdA0EX6UtQRbCZCiYTVw sHPaXIk2P98tpFMkWOptFV9FHPQ+Rambo+Dx5TTOKnVFQhCOYzDyZdRDHOKfYrA3HpJ5QKk7ZlK9ObTO38 oNtdqeVlWUigCK9RMG5rBSYbLKRXUW1SaNQafR8ovh YgQhUzDRLHTgLvM01acWAhOMNmXYHlFRGpEm4LVIYfT8CvzvGyvRkfczHbYFKaJYACDR4ICQrbvmSdmV QeaGadCC55xHxaJP9JSe1OCkJzWD0quq7QcQSuEu9VOJBiNE2LGMDyGJMtCSTrVJN8JZMnIwLvFDwcLM BoWFAaAUP3WWXuMVRhCU7GGqDxJCOpNOv2IAXeADCr FVMbzu9JKGUaCCHoKYB6YCGlVYTvJFYuYGbdWNTkMGKlJAN2AVUlOLVbEF1GLpDxNVOpISS8BKBeRHWt VIKebr6LJLKgQIVkFiZ4WOAjJQGuFIJfYUfdIDKvGNZeEBZ0JEMnYYAeQH8ZCtTnRPSeKWXuBIfzKTNn WNErwu5EIPScGYJsFmMzOGDdZYBrLPJnODehQDPuJO Z9XOqfOCBnTVPjYU7YMmQtZWJwIVC5FZYgLDEoOPHqgd5IOPJfHWPzJHj6XeTgXJKaMJAwHUsoPXZmSE K9FcEnAUBvCRWxDC7BTtYeHLEdCIw5YdzzVLPjYPIyfn2AUKUuTFZhHvs5RzOiGVQoGRAxXOpqZGBjFT I7ULn5NZTeMKRlBH6VWhJtAXXnKNecVpHtNOCjOFHt ni4CVZEiZIXgMGI2IXGuLFVdLLLjVKvlZJTqFRP2LiA5VGQgQDHzHZ6ZGpGmCRHaXZh1UkHlBATcPXOy rx1ZMUJeTCPrXPr0DNYsQPKfSAMjRYytBNYlFEAjMps1FMOnJUZcNZ6DUeXlKXHtQhMhBAmaLLRdIFSh mi7IOPMwAJImWMQwShDdAFLlELAbHHk0efQovHQqDD f2ID9TO6SzidBvNvRQYf4Ot441ACX7ISKnKk6CN5uqGo4cZMYnPFSYWa5JYNp2KeGjRCK3KLQ4OmN2VX a8IZVlLlY4PBLbTArjPGMbAMW+OIbuYOXbVAD0Uql6WstpTYd0UQOtGvu4GiVbC3TpI5JlRb9vBIFQLy 4+RXolfXOfkUzkVCCCCdZbWhKxKRphGHQPVk8J ID Date Data Source [id number] 11/11/2019 05:10:40 AM EDT [facility] Name Value Range Interpretation Code Description Data Jing rce(s) Supporting Document(s) Nursing Note [facility] IIBONd1wLpGHFzWw28/OAWwtAXHfy7MnWBrtLZs1LCqhNMJjG8AbGSQ2qX8oXZX2SHuZEhSbDmOrCZH8 lbm [file] C6AvWvTxSoRQLvXPAaQWTfOTuyDBX+SD6pBQl+Qe5Ol1RokhH0faRbBPwrMRzvDW4HMNBXU6DWMd== ID Date Data Source [id number] 11/11/2019 12:27:52 AM EDT [facility] Name Value Range Interpretation Code Description Data Jing rce(s) Supporting Document(s) Nursing Note [facility] PRPMKn8hKiRGHbUl10/PQUziARViz5OfXRrrFJf5BRfqIAFmD0EqTFZ7xK2dXGJ5WDlXNkYsAkCuMVG5 lbm [file] LbQmXXX4MpbtK1DkCHO0XPK+KY0aHMw+Fi0Zq1UgijB5vgPiKKbcLQh6Dn7TZKUER7CTMf== ID Date Data Source [id number] 11/11/2019 12:06:56 AM EDT [facility] Name Value Range Interpretation Code Description Data Jing rce(s) Supporting Document(s) Care Plan [facility] OXSPXq7sQoNSVrLr22/VWDeiWJRgx6QlNKowYXu2ANhgHNLkO9OkVCN3eS5zWOW2CAmKRpVlAvWpDIQ3 lbm [file] ICAgICAgICAgICAgICAgICAgICAgICAgICAgICAgICAgICAgICAgICAgICAgICAgICAgDQogICAgICAg ICAgICAgICAgICAgICAgICAgICAgICAgICAgICAgIC AgICAgICAgICAgICAgICAgICAgICAgICAgICAgICAgICAgICAgICAgICAgICAgICAgICAgICAgICAgIC AgDQogICAgICAgICAgICAgICAgICAgICAgICAgICAgICAgICAgICAgICAgICAgICAgICAgICAgICAgIC AgICAgICAgICAgICAgICAgICAgICAgICAgICAgICAg ICAgICAgICAgICAgDQogICAgICAgICAgICAgICAgICAgICAgICAgICAgICAgICAgICAgICAgICAgICAg ICAgICAgICAgICAgICAgICAgICAgICAgICAgICAgICAgICAgICAgICAgICAgICAgICAgICAgDQogICAg ICAgICAgICAgICAgICAgICAgICAgICAgICAgICAgIC AgICAgICAgICAgICAgICAgICAgICAgICAgICAgICAgICAgICAgICAgICAgICAgICAgICAgICAgICAgIC AgICAgDQogICAgICAgICAgICAgICAgICAgICAgICAgICAgICAgICAgICAgICAgICAgICAgICAgICAgIC AgICAgICAgICAgICAgICAgICAgICAgICAgICAgICAg ICAgICAgICAgICAgICAgDQogICAgICAgICAgICAgICAgICAgICAgICAgICAgICAgICAgICAgICAgICAg ICAgICAgICAgICAgICAgICAgICAgICAgICAgICAgICAgICAgICAgICAgICAgICAgICAgICAgICAgDQog ICAgICAgICAgICAgICAgICAgICAgICAgICAgICAgIC AgICAgICAgICAgICAgICAgICAgICAgICAgICAgICAgICAgICAgICAgICAgICAgICAgICAgICAgICAgIC AgICAgICAgDQogICAgICAgICAgICAgICAgICAgICAgICAgICAgICAgICAgICAgICAgICAgICAgICAgIC AgICAgICAgICAgICAgICAgICAgICAgICAgICAgICAg ICAgICAgICAgICAgICAgICAgDQogICAgICAgICAgICAgICAgICAgICAgICAgICAgICAgICAgICAgICAg ICAgICAgICAgICAgICAgICAgICAgICAgICAgICAgICAgICAgICAgICAgICAgICAgICAgICAgICAgICAg ECh4G4kaOYBmSJRzBS7aMUw0Xj7+DCqYOxEoNHO1sv RgbZ6HPP8yi8CkFJkhYVDbp2RiODc4XQ4EDWImTQqtIK6TLWrtgb5OMXPqUBTioIKQx5bsJsYjOIS0VD CiRsynEH6JWEDoI0tmilJeWSCnYXHRYH7CKyZaC9BljX32LYHCEf2+WTzheoFjIfqVSzOeJWRpx5EkYT c6XJ0JVGYdMzgsy4RqZzSeCHDGHHtbCP8LPAW9BMZf TSWlOi2ZUIEnJ220adLgBA6GFk9NQxChTY9qco0WIoLmHXRnMjaLEkg4UHxxBO0BzTSzDXkTPOZwNXGl AQ6yZpvfIxYgBVJnLopec9TjSQBZOOX7DQulFv4iHRFyMNTsWiW3JCEYEG0ICGAjLCNirGBwFVOoYIOF BJ0CVImfDCU8LccrihXzsWRkYDqyML9WVYSenzJhYi IgMCBSDQo+Pg0HXU7ad5StLGdxALPrEB1vri3PEVyJOmIhP7D8sOKkJ8B2OWddKn9HWAViEUEpEkHzMT OPJUcgTN3WCQ5znbM9NG7NuEMeDLFrDURavSCiJBq3C05zzZQoMExsPT0ZQFX+Rambo+Ir3XVFYxBRWdBZ KwCfEqSYLGIfJmH3TwY4TQu5YxI7CcVQ28aCoakkNx NZmdLZ8GSU6dQNKaIKCGLD1XxRIkyK3aliZrSdUiDCUDTgIfS60fgDHaIKDbULIeDLEfLi3TXUIvA8Fd pjAplQbtfeZuRFIsZZFMHD0UONjfqlPzyZFpiUegEE75hWgtCA7IWq8EMfGiEM5kjh6ZtVFnAv1OKXPo XH6TWPJsJEKtXVFkVPM7KHCgSfDiRJcgDPNmOUZeUO R8OTNcGGHaYI3LCuJjRINwCZfjDuSjBGJeUHYkoj8BEBMlZCIeNZw2HZZjZSUmICFmYCahTKQqISEyER D4JZGsRAFaLC8VOkEpRXDbKTP9LbTiYUCiEUCswc1JBPYxTAEdACw0EXEyFSEaZHYuNTwuXTGaCTWiXh H6HPErZRHpUL8JSqQyEDIvRRL1RhayELUyHHHoyc3N WDJwIQAmBeDqJQElQLRdOYJmGFtxWTIpSGM5LQdwROJbYRXcBX9TUaPvWQSoWBOtReVwZSErMLLwzr1F LVIiJFPpAEA9PwEvDHDqTIFwIIdeIJQnMYY6PHKoFENgSDXnTM3BSmTmAWAjLEmzVJnrZBXoMHYult1T DHQdYGFeAfLpLnDxQHHzVWOmZEwsJDSmCVH1SUX2PI NqOCMjXL2NYpRtPTDvHGw3EQVeCMGrHJVskh2VYTQtJUNaPLT4RZRyVHPnCKRlSAulOHEuKWR0IIK6CU NoAKEnDK9ZTjRtPIZnURmeETKcSRRtVAGmmr1LIRIiXSGzOHVrVDEkTACrFTOwOQyzUJZlUGIuNQW8JH EqDWMlWE5UEoTbBYHqJvF7QnydEKZbLZKbyj8JNDSq UBUjEJK8CzLkJBQbZQPiSMr3nzNyfMCgYSm0ZG0SC9ZowkGfBcZWZt5Ts581DAK8WRWcHn1RE9myNw1d PTFvTJBXJc7AJIz3PLIcKQT6BRAwINgxFPG4TLCuXMC3CZR4SWDrSTQ5Z3F+IDxlNGVhNDkxZmFkOTM1 QuA6IsD5Dhn4EtorIcEaKxXtFM8sIZEOOr5+RAwpeEGtbVuqIQNRJcBfWzKxSZujQXLCTk1J ID Date Data Source [id number] 11/10/2019 07:08:43 PM EDT [facility] Name Value Range Interpretation Code Description Data Jing rce(s) Supporting Document(s) Consults [facility] BTFHLq9sWxJXOuJt52/TPDrbCUNzn7QbSHleKXy0RBjiNTHqS7JnUFD1zT7zVLQ3HPjHNtWnKxFcLVI6 lbm [file] LlJCGbIoMoNVA8QzIlRBYoPVTdYl7vZUXIPi3+ZJkagEHifQdxWNIYErPbUlB8XEurNSZJIu4P ID Date Data Source [id number] 11/10/2019 01:28:40 PM EDT [facility] Name Value Range Interpretation Code Description Data Jing rce(s) Supporting Document(s) Care Plan [facility] ALMIJz4eJoBVDjHr42/VFPxxSHLfq1TzSHwcMMy7JImlOPLkE4TkIWL0kO0fJWG8VPhVAbIqSvAnJZW7 lbm [file] XsPS8UAo8FJfS0RPG0eSEsXu3YVzWjEtpUHdFwBH1HIOf= ID Date Data Source [id number] 11/10/2019 08:43:00 AM EDT [facility] Name Value Range Interpretation Code Description Data Jing rce(s) Supporting Document(s) Triglycerides 232 mg/dl 30-200 Above high normal [facility] N-Acetylcysteine (NAC) and Metamizole conteh ve the potential to falselydepress Triglyceride results. Baseline values before medication adminstration are recommended. Cholesterol 177 mg/dl 0-200 Normal (applies to non-numeric resu lts) [facility] LDL Cholesterol 83.6 mg/dl 0.0-100.0 Normal (applies to non-numeric results) [facility] HDL Cholesterol 47 mg/dl 30-70 Normal (applies to non-numeric results) [facility] N-Acetylcysteine (NAC) and Metamizole conteh ve the potential to falselydepress HDL Cholesterol results. Baseline values before medication adminstration are recommended. Cholesterol/ HDL Ratio 3.8 0.0-5.0 Normal (applies to non-n umeric results) [facility] The above 5 analytes were performed by [facility] [id number], ,[place] [address] ID Date Data Source [id number] 11/10/2019 08:23:00 AM EDT [facility] Name Value Range Interpretation Code Description Data Jing rce(s) Supporting Document(s) TSH 0.61 uIU/ml 0.36-3.74 Normal (applies to non-numeric resu lts) [facility] Concentrations of Biotin above 100 ng/mL can potentially result ininterference.The above 1 analytes were performed by [facility] [id number], ,[place] [address] ID Date Data Source [id number] 11/10/2019 08:23:00 AM EDT [facility] Name Value Range Interpretation Code Description Data Jing rce(s) Supporting Document(s) T4 6.4 ug/dl 4.5-12.1 Normal (applies to non-numeric resul ts) [facility] Sulfasalazine has the potential to false ly elevate Thyroxine results. Sulfapyridine has the potential to falsely depress Thyroxine results. Baseline values before medication administration are recommended. ATTENTION: Effective 03/22/2017The reference range for T4 has been updated:Previous Reference Range: 4.5-12.9 ug/dlNew Reference Range: Female: 4.8-13.9 ug/dlMale: 4.5-12.1 ug/dl The above 1 analytes were performed by [facility] [id number], ,[place] [address] ID Date Data Source [id number] 11/10/2019 08:23:00 AM EDT [facility] Name Value Range Interpretation Code Description Data Jing rce(s) Supporting Document(s) AST 31 IU/L 15-37 Normal (applies to non-numeric resul ts) [facility] Sulfasalazine and sulfapyridine have the potential to falsely depressAspartate Aminotransferase results. Baseline values before medication administration are recommended. ALT 68 IU/L 16-61 Above high normal [facility] Sulfasalazine and sulfapyridine have the potential to falsely depressAlanine Aminotransferase results. Baseline values before medication administration are recommended. Alkaline Phosphatase 63 mIU/ml 50-136 Normal (applies to non-num mikey results) [facility] Total Bilirubin 0.60 mg/dl 0.20-1.00 Normal (applies to non-numeric results) [facility] Blood Urea Nitrogen 16 mg/dl 7-18 Normal (applies to non-nume lorenza results) [facility] Creatinine 1.01 mg/dl 0.67-1.17 Normal (applies to non-numeric resul ts) [facility] N-Acetylcysteine (NAC) and Metamizole conteh ve the potential to falselydepress Creatinine results. Baseline values before medication adminstration are recommended. Patients undergoing treatment with phenindione will have falselydepressed results. Patients on phenindione therapy should be tested with an alternativeCREA method.Toxic levels of acetaminophen may lead to falsely depressed results forpatient samples. Glomerular Filtration Rate 79.00 mL/min/1.73m2 [facility] GFR Reference Ranges:Normal Function or [...] of Health and the National KidneyFoundation. The [place] method used in calculating this result is traceable to IDMS standards. Glucose 82 mg/dl 70-110 Normal (applies to non-numeric resul ts) [facility] Sulfasalazine has the potential to false ly depress Glucose results. Sulfapyridine has the potential to falsely elevate Glucose results. Baseline values before medication administration are recommended. Calcium 8.8 mg/dl 8.5-10.1 Normal (applies to non-numeric resul ts) [facility] Total Protein 7.0 g/dl 6.4-8.2 Normal (applies to non-numeric re sults) [facility] Albumin 3.5 g/dl 3.4-5.0 Normal (applies to non-numeric resul ts) [facility] Sodium 140 mEq/L 136-145 Normal (applies to non-numeric resul ts) [facility] Potassium 4.0 mEq/L 3.5-5.1 Normal (applies to non-numeric resul ts) [facility] Chloride 110.0 mEq/L 98.0-107.0 Above high normal [facility] Anion Gap 9.0 [facility] Carbon Dioxide 25.0 mMol/L 21.0-32.0 Normal (applies to non-numeric results) [facility] The above 16 analytes were performed by [facility] [id number], ,[place] [id number] ID Date Data Source [id number] 11/10/2019 08:17:00 AM EDT [facility] Name Value Range Interpretation Code Description Data Jing rce(s) Supporting Document(s) [place] 0.90 mEq/L 0.6-1.2 Normal (applies to non-numeric resul ts) [facility] The above 1 analytes were performed by [facility] [id number], ,[place] [address] ID Date Data Source [id number] 11/10/2019 05:22:32 AM EDT [facility] Name Value Range Interpretation Code Description Data Jing rce(s) Supporting Document(s) Nursing Note [facility] HOZAOa9fNhJYKtNm08/PCSruAASjl0IyDQldCIl1ILdcGFBaL3LuLIW9xQ4pPRV8FEbOClGpYlHcFAC1 [facility] [file] AgICAgICAgICAgICAgICAgICAgICAgICAgICAgICAg ICAgICAgICAgICAgICAgICAgICAgICAgICAgICAgICAgICAgICAgICAgICAgICANCiAgICAgICAgICAg ICAgICAgICAgICAgICAgICAgICAgICAgICAgICAgICAgICAgICAgICAgICAgICAgICAgICAgICAgICAg ICAgICAgICAgICAgICAgICAgICAgICAgICAgICANCi AgICAgICAgICAgICAgICAgICAgICAgICAgICAgICAgICAgICAgICAgICAgICAgICAgICAgICAgICAgIC AgICAgICAgICAgICAgICAgICAgICAgICAgICAgICAgICAgICAgICANCiAgICAgICAgICAgICAgICAgIC AgICAgICAgICAgICAgICAgICAgICAgICAgICAgICAg ICAgICAgICAgICAgICAgICAgICAgICAgICAgICAgICAgICAgICAgICAgICAgICAgICANCiAgICAgICAg ICAgICAgICAgICAgICAgICAgICAgICAgICAgICAgICAgICAgICAgICAgICAgICAgICAgICAgICAgICAg ICAgICAgICAgICAgICAgICAgICAgICAgICAgICAgIC ANCiAgICAgICAgICAgICAgICAgICAgICAgICAgICAgICAgICAgICAgICAgICAgICAgICAgICAgICAgIC AgICAgICAgICAgICAgICAgICAgICAgICAgICAgICAgICAgICAgICAgICANCiAgICAgICAgICAgICAgIC AgICAgICAgICAgICAgICAgICAgICAgICAgICAgICAg ICAgICAgICAgICAgICAgICAgICAgICAgICAgICAgICAgICAgICAgICAgICAgICAgICAgICANCiAgICAg ICAgICAgICAgICAgICAgICAgICAgICAgICAgICAgICAgICAgICAgICAgICAgICAgICAgICAgICAgICAg ICAgICAgICAgICAgICAgICAgICAgICAgICAgICAgIC AgICANCiAgICAgICAgICAgICAgICAgICAgICAgICAgICAgICAgICAgICAgICAgICAgICAgICAgICAgIC AgICAgICAgICAgICAgICAgICAgICAgICAgICAgICAgICAgICAgICAgICAgICANCiAgICAgICAgICAgIC AgICAgICAgICAgICAgICAgICAgICAgICAgICAgICAg ICAgICAgICAgICAgICAgICAgICAgICAgICAgICAgICAgICAgICAgICAgICAgICAgICAgICAgICANCjw/ iETeM7mhsDCviaY8Q1dlIl0XRp5CUV1vd5DqXIVhMOggmbUiOokVHsRhGLBlNfzVWda2LBzhAA6JoSBr C8ArX4DdEIpbGO1UVEDyLMThdZIiJLFjVGGbJuJ1ML QbFWdbNT3KiLDtXSwgOZUfDJNvHM4YAEJjE475cbTrRX5NSx2GHnOdNS7txm3GZSttMOTmEawVUpm1KV rlTP7KtZUasIXjDBLpKTFKZeHgP9gqt0NvBAimEHOMRMdqSY7Oe5EdgUZxKZs+Ze3VBN8mx9EfVMgcGR CaYV8zrs9BYMfEJaRcX2OieCchOK59ofEjgecrWr34 RLMoxJCFx6JgvAKvNDTws2AnCRFNQIU9DWsfXd4eQXMrHFY7GdMbAXLLYX1AWHUrTMTzjSFgYOXrJCMI TX6MIJnoJOY2UidrbdGvfLDfLNbtAF4WWPTgndUxJBuuTNRANKm+Hn0DML4kz9HtXCodVOSeFM8dzd6C JSeLKdUhG1P4vLLsK9U4IEtpOb1PSTPhPGUgOGOuHW WEZNkxIQ9LPH2susO2UK2CmZDrFZJqIOFqpBXbNAb3Z72yoBIvNIhlFK1AGIF+Rambo+Gu6HGPBaQTHoMW BzClFrRHXUUpBvF0YbL0GLx3QcK6XfOS91hEuubzGuYIxtHY5UXR8uDIQiAJGRMA3EpWOdoT7kwyXuUf OfPCQMWnNcI75cnOBoVNRtBGX6JBDtHk9CBDFxJ6At ugQazTrxhzQhTFVfBYQBNI0PWFnuitIngJIcuYinZP11jZazJI9CEf7VUgEhEY9hvx7JzNSyYu4CGTYf EY8SUMLnXTFyEUJyNVO9NLEnNgWxRWgsSSAiUTWvAWJ1CXCxOBQqSV9YYqZrUKKaTDAdKsHwTWOuAOOb ja0VNDJqRJEcQjB0ISIkJXJoYHIjTZfpAWQpHAYwBR G3ZTLgYNOiFF8PReUsIOQtHLTdQrvpUNTtSJGwhx2SROLvMQAwKCU2EWQtMBObKXMqBVdtJPNwFRApLb Z7XYTsIQIwAS7WAvBcBOYkERH5QLZjHGSzVSRhpv3PNTJvZJKwYvKfRRDzHTObREIhYIyiEBNgPIIfWQ j4XHLjIUTtRA0PSbCsIKJsPAY7KXLcQBMyLKQpek8U XCMjETDmFwx4VgSvEDCaWLDrEZldFOByLDO1ZFYcHXOgIZXkFL5NJzLuYTUxOUReJgCdJTIoWCVure0I YGCcLOGpESRyZuLyDIDkGTSvMVswXPTjKEN6CeJ3VUXqDDFxHG0NDpWwQGGtLJpzXrogRJOxGZFtix2O BMNfTMWkHrUzWFMvWUVwDJQnUYngYDEdQOT6CinrYL BmQXLmVB9TFcKwSDfqSGFCBue5KJqjM4h8NHJyEC2HR1Fbp3LzGMgxGWICDStzKV7rafWwVGStCh7WR4 gSIlm5NxP4TAW2CCQfUWyuQ7CpRqJqHabbLQr4PvEpROpdIp1eFVIlOXpeHZs9MYHtIJC4BMHdWLQyR7 LsBDirU6ZjHOOyGdOkWU8REw8IXoJ2AGB1dKPfUx8FPkSlMo4HSZYTF5NTSb== ID Date Data Source [id number] 11/09/2019 11:20:[address] [facility] Name Value Range Interpretation Code Description Data Jing rce(s) Supporting Document(s) Nursing Note [facility] HRJOPz2fLiZKYlVm20/GFVoxTEVxh4AmKSzjSVb5FDbcSOIbZ5HiOFB7xF0yWNR7QRjHQzBmXqCyLGG3 lbm [file] llNDQ+OA5dAWr+Mf5Wc6GoktJ2quLhKUwrBEj3IO5YPPPEO5YRTq== ID Date Data Source [id number] 11/09/2019 10:19:07 PM EDT [facility] Name Value Range Interpretation Code Description Data Jing rce(s) Supporting Document(s) Nursing Note [facility] BMJABp7mFyHCUyBd41/TRVphKWOnl6UrBEfvZOp8VTajUWPtS4IlMOC7wT6dJYV8PFkLVkYwOjWfNEG9 lbm [file] ICAgICAgICAgICAgICAgICAgICAgICAgICAgICAgIC GcTXQlYQEsTMHnGYKfNWUlIDLdVHFcPW0XSYLwZWYoMGFyHXHgNHIwMRHvKDNiVHEhJSLgMCKpIVXgCD AgICAgICAgICAgICAgICAgICAgICAgICAgICAgICAgICAgICAgICAgICAgICAgICAgICAgICAgICAgIC UrFDApMV0QGZHuIFXmDKFwMQMaAYAcLWOnPKKlZODk ICAgICAgICAgICAgICAgICAgICAgICAgICAgICAgICAgICAgICAgICAgICAgICAgICAgICAgICAgICAg NGPvKVYrDHJePRSvVZBiNX0AXVKhZIJiVPBrQKKhAZNlALPiONWjDGQtZMWvZWMkJTThWBDzKKMfJLQh ICAgICAgICAgICAgICAgICAgICAgICAgICAgICAgIC KeHPAaHQJmHDPbHOSgEQMmAYXdNOWaAJEqVO1LMSKuVAXtUHLsPKZuSUYbTQCdOMNdXOBhSSEcSRSiLV AgICAgICAgICAgICAgICAgICAgICAgICAgICAgICAgICAgICAgICAgICAgICAgICAgICAgICAgICAgIC EoRHTvHWPsPA3OYTEnJYUiEGOsZKTsQMZaMWZxHHVa ICAgICAgICAgICAgICAgICAgICAgICAgICAgICAgICAgICAgICAgICAgICAgICAgICAgICAgICAgICAg IYWnLHWaTHQuXRKlQUGiIOXrQT2TCUIjKOWlNFUwBSSwXFMxRELhELAwCRPvKADhTLJeNRWkMBSpZYRs ICAgICAgICAgICAgICAgICAgICAgICAgICAgICAgIC VkSLGsFCIjFZAvIEXjCDZhFUVeNQHdEHAlAPLhUS5ZPNFaLXBiHAZzBLNmQJZiPFFfFPOnQSGyXXYgJZ AgICAgICAgICAgICAgICAgICAgICAgICAgICAgICAgICAgICAgICAgICAgICAgICAgICAgICAgICAgIC RcIBXtYVBtTXZcXT0AJPDqXADsFKMxFKKyPLWhIDQu ICAgICAgICAgICAgICAgICAgICAgICAgICAgICAgICAgICAgICAgICAgICAgICAgICAgICAgICAgICAg EXLxJLQpTGOyTXOsIXImZVWbFLDvWD3OKYVaMMUyFCYyICCsQIXmLQVrPSUrTPLfTBZpMOPdWAYrEQKh ICAgICAgICAgICAgICAgICAgICAgICAgICAgICAgIC BjTBPbYFQpPCAgGLPcATWjIZOnVLFaPZWxKKQqZZWgNU9YRE99kXBzs7P9AUDxPX5ujzq/Go9HQTrgrz FxlRXqUL7IKyRbUW2wui3HUqXzWK4nza5JGVrJOkPpX9B1eEKqARDnMJFIShKpO55yXQwaHo65HZycMW NhKyNeAEa1Pb3MOiIoB4woYYVlXmE8DNDvQrIaYZgy ZQ5Lg8RmpQOpWHo+Ca2SSR8jj4IoKVuwCqIpWE9qsb5UTSgZTrLuV0DescP1SKMkGJEsVh2TKNGpWUQm kPBcKxEqYOTFNvYxW7WpuE28OSJQSw0+NOxmwhEmPenIYhMkJBSef8ExKUz5HS8EFGUqXYn4zYAaIhSz e1usKyIOv5RtREN3EKTtRFxqHXGCw9nlMAOwRKZAMM K6LHdrVl4xSXPmYHH2VbSmBFBZOV4CAGGfGASylVRvHBTdMYJTXR6JENbsNIX7ItpbpsSqrLHeITwjZP 9QYXJlbnQgMjIgMCBSDQo+Vu1KRW3kl6UgGDozCJViOE9tod8CJTxDRwVkE7M2nBSvF3Z7DKczOv5SXJ WiEHZfQxSdSWJLFFtwNX0HDT6vwpJ6RJ8EkQEpTJXs OMEopMOsYEo5U42ucAZfAIsuRO1HLZV+Rambo+Ak0GJJPqQLJzKLKeVbNyICJNNcJhN2XiD7BEr1GxD9Dw TX20eDgjzzClDCabMQ9OKU1eZHLvSANZTN9HtUHxcK4pmuQtYpCbBPWBEkLyZ74jlTIaGGAtJFSjEPVq Mw6DCPIlF2ZtclHazSfwoiOuBDGlPTLVXG0VIFjpsu CrlXBczApeQM89oTqxGU3FRj1SJaYaPE6eta2BgETqGp6UBKPwBJ8SJEJmLSWnTJZfIBZ9JXWrXbAbCJ kpJAJkNSLhCWD8JUUqQNZyNJ7MGwIpSMYfRLs3YGXsKXYrJEMpoy2ZMAFfQWGjJBUcRLCbUIKeALAnOZ wtFREcAFPtAIQ3NNPrKWVcND7LGzFjLDRvXKE4HfCr ZKKcXUMiif1GREZfBKIzTzFuJdHxKFSxHKUtXUodXALsNMKpDNv9YPTjIBZoBP1JQgNiPWVpYQNhFJDq RIEwLOEomy7CPFEaIGFhFiL4AXXnZZYhXIKzBSoqCKTcRMY2DVSbNWIpPKBxON2HDmPoOEMgIYL2Ieft IIQkNFWmyb1ZTQLvGFHqULgoUEHdGJMbQWWiBRwkIM UyIFE7SXZ4WSKgKNSiKK4BLnReJFQyYDd2QFApPYZgTCFfhz2CYYCoDSItBiB8FqGiRSArDKIpLUqpZD QmEMQ9OAQnQOUuETMbOC9WGqUfRIFuHQykKhxtCTSnLEAtaz3QCAYfDRGfCYWaQHFzSOItFCQqZIeiTA JpKAS1VsK3IIPiSKPiXI9ROuWqRVKsFTspNxgdCNQw KPEuun4RUQNxFNDhFLc1SDUxIKIjRISiDIrfBFEaCIWyNsWaPEJmZRQwQF0KXsJdOLBnCyMcUBAmSXPt GYNsxw6MSTYvFHZgLQP2ICZuODQfQTUmNEa0ufQcxUByOYn4KZ9FU2SbgeLjSwQPKb6Fd725HGB3OUWv Sb2BN9vkMo8sFBDaYFZSNs2OXXl4DvZ4MRY0SsIoDl B8EeNjBjCuYRAoKOc9MzG2LntwT8C+VWamNTwbUFi9JKDrEsRiQbGuOMJ0IuS3DRVeEswjHRMyUl2jBJ ANCj4+UFlydBBjfQrcDUVUNeDaEzhrJWtgDUCAVw3J ID Date Data Source [id number] 11/09/2019 07:52:38 PM EDT [facility] Name Value Range Interpretation Code Description Data Jing rce(s) Supporting Document(s) Care Plan [facility] WCHHXg8mUpUZMdXh27/RIQshQFNoa8ZjUBjuXDs4RFmnYHTdY2VgWOL8iZ6hMZT8CKaJYzLgJhTrXGS6 lbm [file] DEckGWs7B2HuGTX4BXZ3PPC9PBMuCj8yGJVQRl1+FIpvnPCetEmsCBGJPeZ1DQWcQKasCWENYp1Z ID Date Data Source [id number] 11/09/2019 07:10:11 PM EDT [facility] Name Value Range Interpretation Code Description Data Jing rce(s) Supporting Document(s) ED Provider Notes [facility] LZXQMz8oTlVQXuDz37/EJGbvZGDqo1UqOQubHPs6MKoyWXKfW4DoCRY3sC9oDTH9ZDpVWhUnHeUfGLL5 lbm [file] 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/M/giw0q3Qg3s61Z5z04/l3Z3cDC8eNvG5/EECICN47ECmvr0iqdlaHgYWLrW+ [file] ICAgICAgICAgICAgICAgICAgICAgICAgICAgICAgICAgICAgICAgICAgICAgICAgICAgICAgICAgICAg ICANCiAgICAgICAgICAgICAgICAgICAgICAgICAgIC AgICAgICAgICAgICAgICAgICAgICAgICAgICAgICAgICAgICAgICAgICAgICAgICAgICAgICAgICAgIC AgICAgICAgICAgICANCiAgICAgICAgICAgICAgICAgICAgICAgICAgICAgICAgICAgICAgICAgICAgIC AgICAgICAgICAgICAgICAgICAgICAgICAgICAgICAg ICAgICAgICAgICAgICAgICAgICAgICANCiAgICAgICAgICAgICAgICAgICAgICAgICAgICAgICAgICAg ICAgICAgICAgICAgICAgICAgICAgICAgICAgICAgICAgICAgICAgICAgICAgICAgICAgICAgICAgICAg ICAgICANCiAgICAgICAgICAgICAgICAgICAgICAgIC AgICAgICAgICAgICAgICAgICAgICAgICAgICAgICAgICAgICAgICAgICAgICAgICAgICAgICAgICAgIC AgICAgICAgICAgICAgICANCiAgICAgICAgICAgICAgICAgICAgICAgICAgICAgICAgICAgICAgICAgIC AgICAgICAgICAgICAgICAgICAgICAgICAgICAgICAg ICAgICAgICAgICAgICAgICAgICAgICAgICANCiAgICAgICAgICAgICAgICAgICAgICAgICAgICAgICAg ICAgICAgICAgICAgICAgICAgICAgICAgICAgICAgICAgICAgICAgICAgICAgICAgICAgICAgICAgICAg ICAgICAgICANCiAgICAgICAgICAgICAgICAgICAgIC AgICAgICAgICAgICAgICAgICAgICAgICAgICAgICAgICAgICAgICAgICAgICAgICAgICAgICAgICAgIC AgICAgICAgICAgICAgICAgICANCiAgICAgICAgICAgICAgICAgICAgICAgICAgICAgICAgICAgICAgIC AgICAgICAgICAgICAgICAgICAgICAgICAgICAgICAg ICAgICAgICAgICAgICAgICAgICAgICAgICAgICANCiAgICAgICAgICAgICAgICAgICAgICAgICAgICAg ICAgICAgICAgICAgICAgICAgICAgICAgICAgICAgICAgICAgICAgICAgICAgICAgICAgICAgICAgICAg ICAgICAgICAgICANCjw/eAIxI7fpgRUmipI0P2olCc 1IYt6MCN8dh7LkMKSkNQuuzlAaLmrNZtUiJTLiNytNTul7FLtkQF1PvDNsH5VkA9WlGEwoBE9UBJKhXY VymQSnJUHsNBThUzY6WRMkVDrvFA8AsMIxFJqkTITzMFHzMeDeVFMrTGLfZPTfDF0MBKEgX213lgZnSq 1SOk0KRqXuQV6pzo1UCxjcTGMpQmhJZkw7HRivET2N cBCacHVfEXHnANFKXiEyF7xlv6NeIkCbDEHJFDftVI2Uj7HgtYKxBXn+Ri2SJL2hq4HjHEcyTWWpET6n uu8WEWlDPlUxP4XofKfxLLMRMKHfq9PhDJDeCD2emVZtXEG1RODiGH0nm8DeOBShJ9LrvZk2zezpCNOw YHOzHQ08VmJrRoFuJKD7CxNpTH7pBVhmWV0MQVQ4BW jyXRKqTEQbE5vZIyBfZKlnLKIqpQtgFU4DRnCvQ1VebtAlyIYbOLVdHBZEOb9+DQplbmRvYmoNCjMxID Chi4HfTBu3MR9XAMYsIIixGO8EKWNhrE4nSOzmEJ6AXgXjSbDgOKXBHhOqV50cwBYwEMc4Q5DfBiAdHO VkRmlsZXMgPDwvTmFtZXMgWyBdDQogID4+ID4+DQog MO9SQCrdlzQnNNHjBs2FLODfUYVfKD4jSMTtSTIlF1Y7hXihZIVZJkMtO9rmxzhzDA2kDCBlP760dDws wdOoTXP2PYUqCw7COUJfNCI5LKCenIGiMvctUEHATYqeFH1XrTLbNWB7cS4cNJivSAIlUWJhC0hJJkMp jTtzOO53vMzahcLkrYTcNAi+Cm8OZN2tp7LkOXr0jr RqCAnxCHIfADthVRByZUFpYHTeCCN3BVO0POBNGrQzQOJlBVSjLTkrQJDsMEBwyt1TOGDoHPXmLsQfXE UvKDRxLAAlVQssRGUyOUB4BHWzCENdVMHlTG5GIyEsEYGqOFQiCKovBAHlZZYgqj4QPPNzVJIvDnRbCK KmNNHoGHHrCAtzSJJuWODaBPN8IAGrYKHaNI5RVqBy ACTcLEH5GRLxCGZeMBFoep9JYMUfWSAxFBL5JJBcRYLwCLYeEWwqRHThXBH9Seb4MYUdGOQcJR3VAuUu KWNgTAp2MLtnEKFsENAivo8FMRTjVJJvSIE0GZWsQSWeVZWwVOwoQHHwEYT2IiCvGGFcIIJeVR7KNiAv EZPyHHf2IRqcZMHqXXPjnh8ZHKQiQNKpNNumGJQeEY GtVBBnDHyePURjUVYvLCU4BAVnNCMaGO0VTvBvXGIlXOQiFDnrTPKeRSVkse8LEIJfCHKsVLJ1OvGpOT CdOIRnVRzbKAHgLATkFJQ5AWHqTUInNH1TRrZgSIIsROQ2SYNwZXFdOPSzpb7WHDCgRQOwJuSgBtDvCV ByUWQlHKnuWZTjNBUsXYSeJWFoIGLvJH7KJkXsFHDy NTJ6WCgrQPLzCQFjvk5QWJErAKWcKJV0ScEqTSVsOKYiILjgLCPoXJV7Oqm3JMLoAGRjOJ2YStEzQLAg IoQ6RLZdVALiQLCtub0TIFDeOQZbYuBfJsOhGZVzPATzGAxvHNSmBID9Qyv6ABVySWFkXC0GTsIgYJCd OtI4NTUcMIPiRIEiru8CATCzPTYhQIE7ZVOaWYVxRN JbHUrwVTHqMAC4RbKkOFLiRDTlTU7PIkLrVWSiOteoXBkvEBRjBOLpgt7YpHGmvRlpei5ZPBhNTq0PpB ukQROvFUmtPr6liCQeEOPnEEKTPl7KhzTyZKKuOJEWQAjzHHFeRVY2M9UgVMJvCRNjXEHzCvp5ATG3QB OxMCUnLhL8BiKlVnB8CkYyARIjJZV6E8M9KYQ5CYO0 YfoqLOSuXQLvICn5OcU+SF4yFBi+Bj0Us2RmlmH5hhByOTolWOEhWQ5RGVJFM9PDZz== ID Date Data Source [id number] 11/09/2019 05:57:41 PM EDT [facility] Name Value Range Interpretation Code Description Data Jing rce(s) Supporting Document(s) ED Triage Notes [facility] ORFRXo7cNsWPBfTz62/UKGlyEXUsf3PnOFmeSRf4ZLhcCVOuR4JwRAB5oP8tTCD9GQwYYvBlIwIiDDP2 lbm [file] 9GDQo= ID Date Data Source [id number] 10/20/2019 11:51:05 AM EDT [facility] Name Value Range Interpretation Code Description Data Jing rce(s) Supporting Document(s) Progress Note [facility] IQOUGc1cSyGYTkBi96/ARBchJZMld0OqTHpzSXl4FFiwZSOsB1UxDFD5dU2bESJ4BApHIfBnWkBkCZE5 lbm [file] AgICAgICAgICAgICAgICAgICAgICAgICAgICAgICAg ICAgICAgICAgICAgICAgICAgICAgICAgICAgICAgICAgICAgICANCiAgICAgICAgICAgICAgICAgICAg ICAgICAgICAgICAgICAgICAgICAgICAgICAgICAgICAgICAgICAgICAgICAgICAgICAgICAgICAgICAg ICAgICAgICAgICAgICAgICAgICANCiAgICAgICAgIC AgICAgICAgICAgICAgICAgICAgICAgICAgICAgICAgICAgICAgICAgICAgICAgICAgICAgICAgICAgIC AgICAgICAgICAgICAgICAgICAgICAgICAgICAgICANCiAgICAgICAgICAgICAgICAgICAgICAgICAgIC AgICAgICAgICAgICAgICAgICAgICAgICAgICAgICAg ICAgICAgICAgICAgICAgICAgICAgICAgICAgICAgICAgICAgICAgICANCiAgICAgICAgICAgICAgICAg ICAgICAgICAgICAgICAgICAgICAgICAgICAgICAgICAgICAgICAgICAgICAgICAgICAgICAgICAgICAg ICAgICAgICAgICAgICAgICAgICAgICANCiAgICAgIC AgICAgICAgICAgICAgICAgICAgICAgICAgICAgICAgICAgICAgICAgICAgICAgICAgICAgICAgICAgIC AgICAgICAgICAgICAgICAgICAgICAgICAgICAgICAgICANCiAgICAgICAgICAgICAgICAgICAgICAgIC AgICAgICAgICAgICAgICAgICAgICAgICAgICAgICAg ICAgICAgICAgICAgICAgICAgICAgICAgICAgICAgICAgICAgICAgICAgICANCiAgICAgICAgICAgICAg ICAgICAgICAgICAgICAgICAgICAgICAgICAgICAgICAgICAgICAgICAgICAgICAgICAgICAgICAgICAg ICAgICAgICAgICAgICAgICAgICAgICAgICANCiAgIC AgICAgICAgICAgICAgICAgICAgICAgICAgICAgICAgICAgICAgICAgICAgICAgICAgICAgICAgICAgIC AgICAgICAgICAgICAgICAgICAgICAgICAgICAgICAgICAgICANCiAgICAgICAgICAgICAgICAgICAgIC AgICAgICAgICAgICAgICAgICAgICAgICAgICAgICAg ICAgICAgICAgICAgICAgICAgICAgICAgICAgICAgICAgICAgICAgICAgICAgICANCjw/aXYcQ1yksNRx ccI6U2pfSi0OZh3DWT3lj4DvKXIcMIifuwQxSerCMeCwLRPgAybLGuo5OCgrGC6OtFUyF1PpQ7OwYOwz BQ9BJENgGQGgpGUmRXYtYZUjEaM3TYZtIXljWB5OcI YkXOooPWAfXJZoYxIkXDZbKRXkWORuGBJuJBRJZRTjIQKdKaKqVDYmZVVtQAezCPZSGWA6NNPzIyLxTZ fgGY9Mh5KofUU1GIk+Wb0JWQ2qq1AnZVvuFPJrAG6elu1WEOxOAyGtP5IcmeL0YPDxMTNxPs1SQQIgCW LajQW6QUUxGOPLBePsI1UpsT10WSSPMy7+DQplbmRv ZewDHqSvEMOcb7KoSRx1RW5LFDSyJVx7lCKgWUWlP2Rru6JhBj95SOYaNzzhHcFyhrFqFQVSVVPtsYPt maqkVLEfBXTzVW6bQs5pPJYpXGNhOaHiUTWXIF9NGIExBVVtsKXvHQJvOPRQDS3CIQjkYIX9OAGsqhIa mIEgDQmiJH5LPNMmqeIrRcstIXTHNYg+Nr7DLN7lv7 DjVAd4GQWbFG1eux4FAApTEmIjN0K6tANmO0P6PVveAo9BCKYgUTCuWuraENMXQYglEJ6NGN4juqP8JI 7AcXTwNECbPBHnvHPvSVu8W02azUWhBZvzZL1YJEI+Rambo+Ri1IINDwGIMwBXBmRwWdHTJKChTaS5LjD0 UQn2JjJ6EwMW34kWcseqPeNZrtOF4YAJ2rDDRmKCSZ YT4XkMOwlL5cytKcQOSuCISGKiGkZ18ivDFfPRPcOQU2JULiEj8MPDAmH0VrpuWlsIlwgzNgKMJpPOHP FZ3CIJhfxbZwrEOmxRfxIT78pUyhGB1XUl8ONxKyVL6ipa8YpVWyVc0GWPY8Cc3QOTWmFXBqAYHsVGG2 ISDrDpKoCPcyUXExBGVeGFA8IJBcOHDdUG6XZsWzBF GjVne8RFJfATSoXFOlbi4DYYQkMEB3WWR8VjBsFJNxBJOlYSqtKVVzNXDbGTP8UFFqMUEiBS5KEuTdKZ YtTINlWRKnINKuPQGrxe4JMUEtWYJeSDFqPBRqRWCnTXSkWKvoMUOjOOE5ANwbOYZuJNOvCF0BUyJaYJ SfXLcwShmzOBHqQJRguh3IUKZzAEEwZIp6ZtZhBQYh MLXtKZrmGVBjMEJsTVjnYLJzXOXyFF9UYyOeCMZjXLK2PFpoSSEfOQAtwx2HGZQmBRQcQdYdBYBgHJSq RKNfMAkjHCFiPRH5ClZ3TOJpKCWzEO1KEhSyFWRwZAK6NqHqCYDrXVNegc2BJWKtABShCeP4SBYcIOVw NRXpINptLBTsNNK1Cqp9JQOyDHGpHP8QGjCoVQDzQk LpZpDeDZPsKBUjrx8NSZKoJXQnCDN1JLPxSUVxTUPfSUecNZJmBRBoRDKiOLRjGXTmVC2CLfBiBPTgEb RcOMhgAJAcNXKfle1IVFXoGEVnGeKwWGOkZXTfQQAlSAmxRKDtOFMqHTG4AGWxYCTxEN6QAmRkLRQuGb X3WNctETLxHJExmn0WXZKsTNOcKwQ7GDQjKWRpMZYx YSuzOMMaJDEmJyIpVQNeWKTkZB5VRnZyLHNoQfC9NtzdWIKkKEEdyb5TTMEjDZYqBZW3QVSuBKMyPUJf OHfxQKIfOQY2WgjkBYBcZXNtUB0IUjVlPGVyHmY4DDJjPXNvYNKflf9JVUFeIWUtNaD9OhPaLWSdCKWh URwuINAeTXE7Ets9EQHjAZCjXS0UJfZgCIRjLsxvHI PlKXMsDOAvqz3XHDWaZVKbJbBsWrJrTDHiVEXrNKueIVCwWBV2ZfEwVJYfEVTnRL3RHtGiZOVxGsb2QV WzTKItXSYgvy3TVAEoXQXnLKj9FiPtLTFlZFKgKGcoMHSwMLI1SAHgNKYoMERcRA5VBbSsPQPmIbfxLH WbSVIbESSlfi1RLJSjPRH2IWnpJQRzERBmIUEgUVqm VWCwRTDnWDU6VCFcLURxAJ9QAnMjPMWlDCHxLiPqHWSuUIXymo2PdYNxsTifuz1SENuTFd4DnOdqBLYy GVmyUr9wgVK0EWRfMRGATt5FrmHnMYQeWNNDLKnyDQCpTTDoHfOtWzU9CIpoVFD0FIM0AaYhLSH4CEC8 D6G3QqB8LfQ5TaS0Z7JgWURsLQOlGyw5QijoNSTiRE ZlMjQzYzkzNDc+YE4xEYg+Zf4Lg4SedfF4yuQvGMb4QDXfKM5XTCKVL0RZYm== ID Date Data Source [id number] 10/17/2019 04:02:00 PM [facility] Hematopathology Report See Addendum Eric wName: YUDELKA RAMIREZ. Number: [id number] Date: 10/16/2019 13:11Received Date: 10/16/2019 14:02Physician(s): CORNELIO [...] 10/22/2019 T-cell PCR shows three clonal bands ([id number]). These bands are slightlydifferent from those detected in April 2019 and are entirely differentfrom those detected in 2017 and 2018. 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 Addendum Electronically Signed By: Lisseth Villa M.D. 10/22/2019 10:45 ProceduresFlow Cytometry Date Ordered:10/16/2019 Status: Signed Out10/17/2019 InterpretationPERIPHERAL BLOOD: CBC performed at [facility] #[id number](10/16/19)WBC 8.4 K/uLRBC 4.75 M/uLHgb 15.5 g/dLHct 44.9 %MCV 94.6 f LMCH 32.6 pgMCHC 34.5 g/dLRDW 12.9 %MPV 8.0 fLPlatelets 168 K/ulDifferential Count (100 cells):64 % Neutrophils 3 % Eosinophils 1 % Hvmpyndqk20 % Lymphocytes 9 % Monocytes-------100 % A peripheral blood film is reviewed. Lymphoid Panel: Ashley Ybarra [id number] following markers were assayed: CD45 (gate), CD2, CD3, CD4, CD5, CD7,CD8, CD10, CD19, CD20, CD38, CD56, CD57, Astor, and Lambda.# events: [id number]: 98%Flow Cytometry Differential (CD45/SSC)Lymphocyte Leonard: 37%CD45 dim Leonard: 0%Monocyte Leonard: 6%Granulocyte Leonard: 50%Nucleated/Erythroid Leonard: 2%The lymphocyte gate showsB-cells (CD19): 5%T-cells (CD3): 70%NK-cells (CD3-/CD56+): 20%Astor/Lambda Ratio: 1.9CD4/CD8 Ratio: 0.6Results: (expressed as % of lymphocyte gate)T-cell Markers: CD2 = 84, CD3 = 70, CD3/CD4 = 25, CD3/CD8 = 43, CD5 = 69,CD7 = 86, CD3/57 = 21B-cell markers: Astor = 3, Lambda = 2, CD19 = 5, CD20 = 5, CD19/10 = 1,CD19/CD5 = 1, CD38/CD20 = 4Light chain as % of B-Cells: CD19/Astor = 62, CD19/Lambda = 34CD19/CD5/Astor = 4, CD19/CD5/Lambda = 1CD19/CD10/Astor = 4, CD19/CD10/Lambda = 2NK cell Markers: CD56 = 23, CD57 = 38Other Markers: CD10 = 2, CD38 = 38Results: (expressed as % of CD45 dim gate)T-cell Markers: CD2 = 36, CD3 = 20, CD3/CD4 = 1, CD3/CD8 = 20, CD5 = 7,CD7 = 49, CD3/57 = 0B-cell markers: Astor = 0, Lambda = 0, CD19 = 4, CD20 = 2, CD19/10 = 3,CD19/CD5 = 0, CD38/CD20 = 2Light chain as % of B-Cells: CD19/Astor = 5, CD19/Lambda = 0CD19/CD5/Astor = 0, CD19/CD5/Lambda = 0CD19/CD10/Astor = 2, CD19/CD10/Lambda = 0NK cell Markers: [...] were developed and theirperformance characteristics determined by [facility] Pathology department.They have not been cleared or approved by the US Food and DrugAdministration. The FDA has determined that such clearance or approval isnot necessary. Name Value Range Interpretation Code Description Data Jing rce(s) Supporting Document(s) ID Date Data Source [id number] 10/17/2019 01:50:10 PM EDT [facility] Name Value Range Interpretation Code Description Data Jing rce(s) Supporting Document(s) Protein [Mass/volume] in Urine 8 mg/dl [facility] Albumin/Protein.total in Urine by Electrophoresis [facility] Alpha 1 globulin/Protein.total in Serum or Plasma by Electrophoresis [facility] Alpha 2 globulin/Protein.total in Urine by Electrophoresis [facility] Beta globulin/Protein.total in Urine by Electrophoresis [facility] Gamma globulin/Protein.total in Urine by Electrophoresis [facility] Protein Fractions [Interpretation] in Urine by Electrophoresis [facility] Corrected 10/16 AT 1350: Previous Resul t was MILD PROTEINURIA IN SELECTIVE PATTERN. Pathologist name [facility] ID Date Data Source [id number] 10/17/2019 01:43:59 PM EDT [facility] Name Value Range Interpretation Code Description Data [facility] rce(s) Supporting Document(s) Protein [Mass/volume] in Serum or Plasma 7.4 g/dL 6.4-8.3 [facility] Albumin [Mass/volume] in Serum or Plasma by Electrophoresis 5.05 g/dL 3.80-5.78 [facility] Alpha 1 globulin [Mass/volume] in Serum or Plasma by Electro phoresis 0.13 g/dL 0.08-0.23 [facility] Alpha 2 globulin [Mass/volume] in Serum or Plasma by Electro phoresis 0.64 g/dL 0.45-0.92 [facility] Beta globulin [Mass/volume] in Serum or Plasma by Electropho resis 0.73 g/dL 0.50-1.03 [facility] Gamma globulin [Mass/volume] in Serum or Plasma by Electroph oresis 0.85 g/dL 0.54-1.30 [facility] Protein.monoclonal [Mass/volume] in Serum or Plasma by Electrophoresi s 0 [facility] NORMALLY MIGRATING SERUM PROTEINS. Pathologist name [facility] ID Date Data Source [id number] 10/17/2019 08:29:59 AM EDT [facility] Name Value Range Interpretation Code Description Data Jing rce(s) Supporting Document(s) Flow cytometry study [facility] ID Date Data Source [id number] [facility] Interpretation Code Description Data Jing rce(s) Supporting Document(s) Leukocytes [#/volume] in Blood by Automated count 8.4 10*3/uL 4-10 [facility] Erythrocytes [#/volume] in Blood by Automated count 4.75 10*6/uL 4.6- 6.1 [facility] Hemoglobin [Mass/volume] in Blood 15.5 g/dL 13.5-18 [facility] Hematocrit [Volume Fraction] of Blood by Automated count 44.9 % 4 1-53 [facility] Erythrocyte mean corpuscular volume [Entitic volume] by Auto mated count 94.6 fL 80-96 [facility] Erythrocyte mean corpuscular hemoglobin [Entitic mass] by Automated count 32.6 pg 27-33 [facility] Erythrocyte mean corpuscular hemoglobin concentration [Mass/volume] by Automated count 34.5 g/dL 32.0-36.0 [facility] distribution width [Ratio] by Automated count 12.9 % 11.5-14.5 [facility] Platelets [#/volume] in Blood by Automated count 168 10*3/uL 150-400 [facility] Differential cell count method - Blood [facility] Neutrophils/100 leukocytes in Blood by Automated count 55 % [facility] Lymphocytes/100 leukocytes in Blood by Automated count 29 % [facility] Monocytes/100 leukocytes in Blood by Automated count 10 % [facility] Eosinophils/100 leukocytes in Blood by Automated count 5 % [facility] Basophils/100 leukocytes in Blood by Automated count 1 % [facility] Neutrophils [#/volume] in Blood by Automated count 4.63 10*3/uL 1.8-7 .0 [facility] Lymphocytes [#/volume] in Blood by Automated count 2.39 10*3/uL 1.2-4 .0 [facility] Monocytes [#/volume] in Blood by Automated count 0.84 10*3/uL 0-0.8 H [facility] Eosinophils [#/volume] in Blood by Automated count 0.45 10*3/uL 0-0.5 [facility] Basophils [#/volume] in Blood by Automated count 0.07 10*3/uL 0-0.2 [facility] Nucleated erythrocytes/100 leukocytes [Ratio] in Blood by Automated count 0 /100{WBCs} 0-0 [facility] ID Date Data Source [id number] 10/16/2019 02:00:37 PM [facility] Name Value Range Interpretation Code Description Data Jing rce(s) Supporting Document(s) Lactate dehydrogenase [Enzymatic activit y/volume] in Serum or Plasma by Lactate to pyruvate reaction 181 U/L 122-225 [facility] ID Date Data Source [id number] 10/21/2019 03:56:00 PM [facility] Molecular Diagnostics ReportName: YUDELKA RAMIREZMRN: [id number] Number: [id number] Date: 10/16/2019 00:00Received Date: 10/20/2019 09:54Physician(s): CORNELIO FLETCHER,[place] [place]HUMBERTO MADRID PABEM, SYLVA,ROSARIOpecimen(s) ReceivedA: Peripheral Blood - T-cell, [id number] OF STUDY: T-cell Receptor Gamma Chain Gene - PCR AssaySPECIMEN TYPE: Peripheral Blood (#[id number])RESULTS: Positive Family I & III / J [...] Gamma Chain gene (van Randallen et al. Dchtchur16:2257- 2317, 2003). A positive result is expected [...] validated and authorized for clinical useby the [facility] Dept[facility] of Health ([facility] DANAY). kz/ Aleksandralectronically Signed By Joshua Garcia M.D. Attending Pathologist 10/21/2019 15:56:42 Name Value Range Interpretation Code Description Data Jing rce(s) Supporting Document(s) ID Date Data Source [id number] 04/29/2019 03:23:00 PM EST [facility] ([facility]) Name Value Range Interpretation Code Description Data Jing rce(s) Supporting Document(s) Alanine aminotransferase [Enzymatic activity/volume] in Serum or Pl asma 70 [facility] ([facility]) Albumin [Mass/volume] in Serum or Plasma 4.0 [facility] ([facility] Calcium [Mass/volume] in Serum or Plasma 8.9 [facility] ([facility]) Alkaline phosphatase [Enzymatic activity/volume] in Serum or Plasma 8 0 [facility] ([facility]) Carbon dioxide, total [Moles/volume] in [...] GFR 1.04 [facility] ([facility]) ID Date Data Source [id number] 04/29/2019 03:23:00 PM EST [facility] ([facility]) Name Value Range Interpretation Code Description Data Jing rce(s) Supporting Document(s) Hemoglobin A1c/Hemoglobin.total in Blood 4.9 [facility] ([facility]) ID Date Data Source [id number] 04/29/2019 03:23:00 PM EST [facility] ([facility]) Name Value Range Interpretation Code Description Data Jing rce(s) Supporting Document(s) White Blood Count 9.3 4.0-10.0 [facility] ([facility]) Platelets 190 150-450 [facility] Hematocrit 44.9 [facility] ([facility]) Hemoglobin 15.3 [facility] ([facility]) Red Blood Count 4.67 4.30-6.10 [facility] ([facility]) ID Date Data Source [id number] 04/19/2019 10:24:19 AM [facility] Name Value Range Interpretation Code Description Data Jing rce(s) Supporting Document(s) Progress Note [facility] AASLLq3yFxGMAyAx85/KKMvrXIXak9QxUYxxEZe2FPngCPTbW9KrKPQ7pN0jDCF2BKyUXbXqIwWbNmA4 lbm [file] [employer]+Rx9PGCXgRNu5C9T5UCSmJOv0E5CWV5FDCEHpCN loQKccNVYeWYw3U3J7JHWeO2SUN7Fraaojdm7+CW6YT17OHEVvVUd6T4U8hAThF4H0cWiWdUS4HY2BPR 0XcBc2bNTqbZ2+PW2VQ9PHUcUbLCo1N0B2xOVuO3B0fScZwDO4VH9PQW2DjFSuXADzbiBsJb8cV7TBZF pSYhXOLHF9FL4VuLFxKG0CiCJUK3PatRYnBv1iVHhi uCTytH4lVx3mNRvrMP4UUoDTGLvVPDZ9JL3TnRNwVY1VaABHJ1QnlEUeOl5eDEvsbODtli6+YB6DWOFx Be7EXj2+OZtngyAjNoaMScU7XSNqi0MmRYr3FW7RTU1arDjxTHH8Oz8MuPY4vLNrI3rFFL2BsXOoC73j mEXnMGRiFe2QHzR6jbVxtZ6FXE91mXDai0L4SVIyY5 aiAEjsd12sEHdmJWkNSE4gMRPASAcfHVclZUO1GmDocmjuVSIbDw4TPkWlODo4gE5plGM2TWH5GjbhfG ClLLblOrHxIaCbLzT3tPabnad4LWhaHX6vZKhxkewvQVHcFsg+ZDtpOVUvBYXbZzlZKQTavQ7ujmG6yz TtKGqlqCTwOo1qp1x5OiwuRh5xRh7qCXq5WzGfVxNu OEXaTo2wzM40HQrugvYwLd5XCyPpPQB1U1GgIcnUGUP+GYewENsuyUq1nDDjUNXfAa5HQDUwGXDjZKMn ICAgICAgICAgICAgICAgICAgICAgICAgICAgICAgICAgICAgICAgICAgICAgICAgICAgICAgICAgICAg ICAgICAgICAgICAgICAgICAgICAgICAgICAgICAgIA 0KICAgICAgICAgICAgICAgICAgICAgICAgICAgICAgICAgICAgICAgICAgICAgICAgICAgICAgICAgIC LlBUDzWQSpJDFdXIGzFRGsIAHmYBLgYKIcOVNiMKUpRAPeOLUbDAJtMI7ZLWPmICYjRIRpIHGbTCBoIQ AgICAgICAgICAgICAgICAgICAgICAgICAgICAgICAg PGNwUIKvNBRsMBJcUCXxQQRbACUnFZOmRTJqPDBfNGFuLIExOWKiJOIlSUCyFFVmBXStUS8PEQZmSUYk ICAgICAgICAgICAgICAgICAgICAgICAgICAgICAgICAgICAgICAgICAgICAgICAgICAgICAgICAgICAg ICAgICAgICAgICAgICAgICAgICAgICAgICAgICAgIC VkVX5NOYEvLXRzRMGfKRGqUMAfTHWwNHQaISBnEDCnRZBxYOGoKNQdFQHsKYToMTWuYLHbQMLyJMVkLE ZmCBAjIMWwQSJdRXOaOINrJUBhDQGsAXUfVRQgXQOfTZUuAUGkLJLbYMCcZN2TEJUqPGBnPSNuRHGyWZ AgICAgICAgICAgICAgICAgICAgICAgICAgICAgICAg RLWgPKPlPVSzQHVjQOJdHSIlONVxQIDfRTIfEBMeXXZsZMPfBNMeRTZbXXSnXLOtBIAzLFHzNK4WRLCz ICAgICAgICAgICAgICAgICAgICAgICAgICAgICAgICAgICAgICAgICAgICAgICAgICAgICAgICAgICAg ICAgICAgICAgICAgICAgICAgICAgICAgICAgICAgIC YkIPJtKF0MALGvCULtLFZfOVYfVAWcOIEtPVFdAGFhBKKyVIPqBFNeTZAnBKTsRSMeBMAfCPYfNMGuGG EdQBOgRNWbVHHhOKPqMWJoEVWxGMVlXCIyOEDvWQSbCYZzVNIyVGZqVMCaBDSzJB5YBRTdRIFqSPJnGZ AgICAgICAgICAgICAgICAgICAgICAgICAgICAgICAg KFVwPHExSHSqIXQxSZOyAKEuEZIaMTLjTGBmDHBoXOMnUBSiSQVkBQJxKDSlRKCuTUNgNSWkMUZiDN6O ICAgICAgICAgICAgICAgICAgICAgICAgICAgICAgICAgICAgICAgICAgICAgICAgICAgICAgICAgICAg ICAgICAgICAgICAgICAgICAgICAgICAgICAgICAgIC DeMCVcVZOsQS6JHL13gXCuy9F5JRFtDE2rttn/Ws7AGIbairUxdPCuQS5ASvSoEH7lhf6TYeKjLY3mug 7HAHlCEkBiV8B3sSQiRRLbIPLVQtIbN42aZWipYj59RYfyDOSeEnOyCNt3Sc0BMjKpJ5oiUYXwQmI4ML DfUpQuAWtfBP7Nr7EdzYQdKJe+Eq7JGN0cj8PmAOov KTFpPR5mrr6JWSnTPhLhG6OhfpR5WZRhVUGzOi3MOTIdYRMpqKIcFWStTUSJXiGnE4GukP70HGHWJs4+ KObidxPjJeeHJsIuFGCsc6WpXNl8QM7VAMMvATo8oGLuFLNcS7Mni8BqHp35FBDqQofwVeTgkwFdQWNX GSClxRBjgvbrIDPdNOCoId8bAf8tDHGySDGuFvR9GG SOQN3REAWaOZYfbDIiEWDgFTLBTI4CUAusCOJ8PSRwiuUerTHnOPvxZM8MPAUowyOqZTxxCAUKXAc+Pg 3DKR3ym4MdXPqiZBLyQB4cjk1WNWuROiQqR9N9kEGsY6U5SWyoDx6XAMNaEJVuFXhgOMEWXJqjZJ6AYQ 5nayQ0KK5MgYWiYPWxUGMqnXYeXSo9H95vqGRqFJuh OB8QDOO+Rambo+Jm8GZRQwSJVkSRXqJdLhHASQFiEnK8MuR0KEe4BsN6YzQF13lYboguOgPKzqFY3IRB9o QNBkQUCUJY8EtLYacK5turKfYJKsXCUGNaZtW21gzUOzLXEvAXO8OOHpRz6ZYYUsB7KxkoSolBqzowKi VFVsJXOMOH6XYCfoedTabSKtqXloUM67aIvrJL8FPq 1TLzRaNQ1sfw8LaKEoBt9IHUQzLb1PYYJyBOYjDLCzLPC7KTOjZxUfBGlmPWDkQCCpFIJ9IXJkLOWoIL 5EKxKjOSFxQIB5UquqQRYrNTJiwq0TSNSrVKKhSLQ0MtClLCPeLJHnHRlkPWWzXYYhPTA0NJSwRZZdRW 4ILrNxUOVsQNP3ILRwFQUwYRKvrk4PGENgUXAtUEj8 WPBdWKNpBEHhJYbkKHAqOKAgBUS0ZHZcERAwIW4VUlEzTIVxAWGtVWJaFFAdJVAjtk9DEOQiJZMqRjAd YCNkCQGaXBGrWLqbRFGzXZU1RwdhJOObREQhEF3APdGeOXUeBMG7NPNvVOQyYKQojp8WTAXfMPArMKN4 YGChZBLiJTWxNAomBEJuBFK1HRX3WIZhSCDaJM9GFt RnCVBsKMSrWVLxBZJbJQYaar6GNFUfWGZaDwC0UFPqZIBsPSUzZTnoKEPmBKE6GDFrZZZcMRPrLD7FPe IvAOUyUTY3ZAzsSDLzYNUfjf0SHTNlIDOuQoS6YvOoZXCvFVRmKZjdHLPhGSI8Oui8BXHjELPvYZ1VRu MoKIKbEDu1OPTdOGLdTEOgow4WWXXoYNMsTZNbAfWq DTFdNCWqLKz4heHplNYoNCd6NL4DB3VtwuVlNcZWVb3Yz034KKGdXZEoDy0ZS8keUd5kBKBmYVIGMy6X LGs4CGssZtZ5QDdfBIJwCeO1ZrqzIpc2Urz1AMHxLNXhLMQ+VRhrEMHhKyotDVRtIvIyPUXiNTS6GQed [id number]+[id number] ID Date Data Source [id number] 04/17/2019 02:29:53 PM [facility] Name Value Range Interpretation Code Description Data Jing rce(s) Supporting Document(s) Progress Note [facility] RLEIIi8rXuJSHbWm88/XNIqvRNMub1CkUZjdORm3NSxuCSVnR6UrXDO1eA8cETI9SWuYGwKsUdLfEpJd lbm [file] du4M1TvgUm2Qyp9ZUYrz061wi794s8WA+0b3R9i8tP txlosM6NsbejRd0Llyyc2H8E5OXxNtVFdnQhGuFf/txjoN+hiCkMubO61tcLzZdaZVrUqG9AfbVqXxVA ApozU6Aq9UoS18itfhwNUXVfVDXdb7UmZeK0L0BWKpdk6kdpd2/zQt2PmRdfkhA11TP/JZDa+a0Ubt12 oNzLgtS8gAWo1R+5Bwq9+p3EgbQF9P/Vivian+ljta2rv QNPslvi6ioUYJrSL4uc+5+vLl4jVDNnvplY0u4dm7YMBIz5C/otarwxAPNsgZ+84s83ynOBgdB5fS9Es Xd7X5iE07/N6lghnH4K6tg25G6U1WiYlZp34h1WrIuqSlegZH610otL5JNP82E36gN+3yeMCKgO63XS1 yZVMzVTGgAlGdrf4r3r4SdWWGYT24BL9bmzTyFJhA9 TEV6aIfTO7K/dG2AzxaMvv1cr0/Zcxtdz72zAxoQ+amqvcKiyyDFbvSdVIy9eol3xYzI3kglM9rvBF1i atItc1Ny01L1RP1WveYwl6JRPfWTW6yfxxz9lZ5vDhBHr/JmAJ0J2T07P3wzKDI8aldiA7Onh3XZH0FR FT2d5D5SQKamP50cc+8sg8JaqhlJvahF/PUFLi1VZU KFrS9PUGEl+jn/50Er13NpW1NhlPEMSi49EfMrv4lQNya6Wrd6KS/Wjset03lURK2Ku2K+DMpu4HfHtZ Renée/ZtwTd3TBX8z4fWgupg6Wo6Y/RofB7pBf+j7CZkM/wMIyd6WfMp68Igs0ptge4hlAyiti4o/RNqLs [file] SHsiGrjkJGC8XR4tOFXLIm1+RDgfdFPbwBvgHWJQWjU8BPZqQNmxQLYECy9U ID Date Data Source [id number] 04/18/2019 05:58:29 PM [facility] Name Value Range Interpretation Code Description Data Jing rce(s) Supporting Document(s) Protein [Mass/volume] in Serum or Plasma 6.8 g/dL 6.4-8.3 [facility] Albumin [Mass/volume] in Serum or Plasma by Electrophoresis 5.21 g/dL 3.80-5.78 [facility] Alpha 1 globulin [Mass/volume] in Serum or Plasma by Electro phoresis 0.13 g/dL 0.08-0.23 [facility] Alpha 2 globulin [Mass/volume] in Serum or Plasma by Electro phoresis 0.64 g/dL 0.45-0.92 [facility] Beta globulin [Mass/volume] in Serum or Plasma by Electropho resis 0.74 g/dL 0.50-1.03 [facility] Gamma globulin [Mass/volume] in Serum or Plasma by Electroph oresis 0.88 g/dL 0.54-1.30 [facility] Protein.monoclonal [Mass/volume] in Serum or Plasma by Electrophoresi s 0 [facility] Protein Fractions [Interpretation] in Serum or Plasma by Electropho [facility] PATHOLOGIST:ARELY LERMA MD ID Date Data Source [id number] 04/17/2019 03:17:47 PM [facility] Name Value Range Interpretation Code Description Data Jing rce(s) Supporting Document(s) Flow cytometry study [facility] ID Date Data Source [id number] 04/17/2019 02:20:07 PM [facility] Name Value Range Interpretation Code Description Data Jing rce(s) Supporting Document(s) Leukocytes [#/volume] in Blood by Automated count 9.2 10*3/uL 4-10 [facility] Erythrocytes [#/volume] in Blood by Automated count 4.53 10*6/uL 4.6- 6.1 L [facility] Hemoglobin [Mass/volume] in Blood 14.7 g/dL 13.5-18 [facility] Hematocrit [Volume Fraction] of Blood by Automated count 43.1 % 4 1-53 [facility] Erythrocyte mean corpuscular volume [Entitic volume] by Auto mated count 95.1 fL 80-96 [facility] Erythrocyte mean corpuscular hemoglobin [Entitic mass] by Automated count 32.5 pg 27-33 [facility] Erythrocyte mean corpuscular hemoglobin concentration [Mass/volume] by Automated count 34.2 g/dL 32.0-36.0 [facility] distribution width [Ratio] by Automated count 13.1 % 11.5-14.5 [facility] Platelets [#/volume] in Blood by Automated count 177 10*3/uL 150-400 [facility] Differential cell count method - Blood [facility] Neutrophils/100 leukocytes in Blood by Automated count 49 % [facility] Lymphocytes/100 leukocytes in Blood by Automated count 34 % [facility] Monocytes/100 leukocytes in Blood by Automated count 9 % [facility] Eosinophils/100 leukocytes in Blood by Automated count 7 % [facility] Basophils/100 leukocytes in Blood by Automated count 1 % [facility] Neutrophils [#/volume] in Blood by Automated count 4.53 10*3/uL 1.8-7 .0 [facility] Lymphocytes [#/volume] in Blood by Automated count 3.13 10*3/uL 1.2-4 .0 [facility] Monocytes [#/volume] in Blood by Automated count 0.85 10*3/uL 0-0.8 H [facility] Eosinophils [#/volume] in Blood by Automated count 0.60 10*3/uL 0-0.5 [facility] Basophils [#/volume] in Blood by Automated count 0.06 10*3/uL 0-0.2 [facility] Nucleated erythrocytes/100 leukocytes [Ratio] in Blood by Automated count 0 /100{WBCs} 0-0 [facility] ID Date Data Source [id number] 04/17/2019 02:48:19 PM [facility] Name Value Range Interpretation Code Description Data Jing rce(s) Supporting Document(s) Lactate dehydrogenase [Enzymatic activit y/volume] in Serum or Plasma by Lactate to pyruvate reaction 195 U/L 122-225 [facility] ID Date Data Source [id number] 04/18/2019 03:52:00 PM [facility] Hematopathology Report See Addendum Eric Hernandez: YUDELKA RAMIREZ: [id number] Number: [id number] Date: 04/17/2019 00:00Received Date: 04/17/2019 14:28Physician(s): CORNELIO [...] rendered thefinal diagnosis. Addendum 04/23/2019 Molecular report [id number] shows four faint to moderately bright clonalbands in an oligoclonal background. These bands are different in sizefrom those present in 2018 and 2019. 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 The current oligoclonal pattern suggests a reactiveprocess. Addendum Electronically Signed By: Lisseth Villa M.D. 04/23/2019 11:39 ProceduresFlow Cytometry Date Ordered:04/17/2019 Status: Signed Out04/18/2019 InterpretationPERIPHERAL BLOOD: CBC performed at [facility] #[id number](04/17/19)WBC 9.2 K/uLRBC *4.53 M/uLHgb 14.7 g/dLHct 43.1 %MCV 95.1 fLMCH 32.5 pgMCHC 34.2 g/dLRDW 13.1 %MPV 8.2 fLPlatelets 177 K/ulDifferential Count (automated):49 % Neutrophils 7 % Eosinophils 1 % Beoxauebw87 % Lymphocytes 9 % Monocytes-------100 % A peripheral blood film is reviewed. Rare small lymphocytes with slightlyirregular nuclear contours are seen. Lymphoid Panel: Ashley Ybarra [id number] following markers were assayed: CD45 (gate), CD2, CD3, CD4, CD5, CD7,CD8, CD10, CD19, CD20, CD38, CD56, CD57, Astor, and Lambda.# events: [id number]: 96%Flow Cytometry Differential (CD45/SSC)Lymphocyte Leonard: 34%CD45 dim Leonard: 0%Monocyte Leonard: 5%Granulocyte Leonard: 59%Nucleated/Erythroid Leonard: 1%The lymphocyte gate showsB- cells (CD19): 7%T-cells (CD3): 71%NK-cells (CD3-/CD56+): 16%Astor/Lambda Ratio: 2.1CD4/CD8 Ratio: 0.5Results: (expressed as % of lymphocyte gate)T-cell Markers: CD2 = 79, CD3 = 71, CD3/CD4 = 24, CD3/CD8 = 44, CD5 = 60,CD7 = 80, CD3/57 = 21B- cell markers: Astor = 5, Lambda = 2, CD19 = 7, CD20 = 17, CD19/10 = 0,CD19/CD5 = 0, CD38/CD20 = 10Light chain as % of B-Cells: CD19/Astor = 63, CD19/Lambda = 32CD19/CD5/Astor = 0, CD19/CD5/Lambda = 0CD19/CD10/Astor = 2, CD19/CD10/Lambda = 0NK cell Markers: [...] were developed and theirperformance characteristics determined by [facility] Pathology department.They have not been cleared or approved by the US Food and DrugAdministration. The FDA has determined that such clearance or approval isnot necessary. Name Value Range Interpretation Code Description Data Jing rce(s) Supporting Document(s) ID Date Data Source [id number] 04/22/2019 03:41:00 PM [facility] Molecular Diagnostics ReportName: ASHLEYYUDELKA SILVA: [id number] Number: [id number] Date: 04/17/2019 00:00Received Date: 04/18/2019 15:32Physician(s): CORNELIO FLETCHER BERNARD JCopy T o:CHRISTINA STINSON BRENT ASpecimen(s) ReceivedA: Peripheral Blood - T-cell, [id number] OF STUDY: T-cell Receptor Gamma Chain Gene - PCR AssaySPECIMEN TYPE: Peripheral Blood (#[id number])RESULTS: Positive Family I & III / J [...] Gamma Chain gene (van Randallen et al. Hvqdadak42:2257- 2317, 2003). A positive result is expected [...] validated and authorized for clinical useby the [facility] Dept. of Health ([facility]). rochelle/tao Electronically Signed By Etienne Mcconnell, Ph.D., DABMGG, [facility] MolecularGeneticist 04/22/2019 15:41:46 Name Value Range Interpretation Code Description Data Ijng rce(s) Supporting Document(s) Procedure Social History Code Duration Value Status Description Data Source(s ) Smoking 04/29/2020 12:00:00 AM EST Never Smoker completed Never S shaina eCW1 ([facility]) Smoking 04/20/2020 12:00:00 AM EST Unknown if ever smoked comp leted Unknown if ever smoked [facility] ([facility]) Smoking 03/23/2020 12:00:00 AM EST Unknown if ever smoked comp leted Unknown if ever smoked [facility] ([facility]) Smoking 03/03/2020 12:00:00 AM EST Never Smoker completed Never S moker eCW1 ([facility]) Smoking 03/03/2020 12:00:00 AM EST Never Smoker completed Never S moker eCW1 ([facility]) Smoking 03/03/2020 12:00:00 AM EST Never Smoker completed Never S moker eCW1 ([facility]) Smoking 03/03/2020 12:00:00 AM EST Never Smoker completed Never S moker eCW1 ([facility]) Smoking 03/03/2020 12:00:00 AM EST Never Smoker completed Never S moker eCW1 ([facility]) Smoking 03/03/2020 12:00:00 AM EST Never Smoker completed Never S moker eCW1 ([facility]) Smoking 03/03/2020 12:00:00 AM EST Never Smoker completed Never S moker eCW1 ([facility]) Smoking 03/03/2020 12:00:00 AM EST Never Smoker completed Never S moker eCW1 ([facility]) Smoking 02/24/2020 12:00:00 AM EST Unknown if ever smoked comp leted Unknown if ever smoked [facility] Smoking 01/27/2020 12:00:00 AM EST Unknown if ever smoked comp leted Unknown if ever smoked [facility] ([facility]) Smoking 12/30/2019 12:00:00 AM EDT Unknown if ever smoked comp leted Unknown if ever smoked [facility] ([facility]) Smoking 12/02/2019 12:00:00 AM EDT Unknown if ever smoked comp leted Unknown if ever smoked [facility] ([facility]) Smoking 11/27/2019 12:00:00 AM EDT Unknown if ever smoked comp leted Unknown if ever smoked [facility] ([facility]) Alcohol intake 10/20/2019 12:00:00 AM EDT Current non-d leah of alcohol (finding) completed Current non-drinker of alcohol (finding) [facility] Tobacco use and exposure 10/20/2019 12:00:00 AM EDT Never used co mpleted Never used [facility] Smoking 10/20/2019 12:00:00 AM EDT Never smoker completed Never s [facility] Smoking 09/09/2019 12:00:00 AM EDT Never Smoker completed Never S moker eCW1 ([facility]) Smoking 09/09/2019 12:00:00 AM EDT Never Smoker completed Never S moker eCW1 ([facility]) Smoking 09/09/2019 12:00:00 AM EDT Never Smoker completed Never S moker eCW1 ([facility]) Smoking 09/09/2019 12:00:00 AM EDT Never Smoker completed Never S moker eCW1 ([facility]) Smoking 09/09/2019 12:00:00 AM EDT Never Smoker completed Never S moker eCW1 ([facility]) Smoking 08/19/2019 12:00:00 AM EDT Patient has never smoked co mpleted Patient has never smoked [facility] ([facility]) Smoking 08/04/2019 12:00:00 AM EDT Unknown if ever smoked comp leted Unknown if ever smoked [facility] ([facility]) Smoking 07/07/2019 12:00:00 AM EDT Unknown if ever smoked comp leted Unknown if ever smoked [facility] ([facility]) Smoking 06/27/2019 12:00:00 AM EDT Unknown if ever smoked comp leted Unknown if ever smoked [facility] ([facility]) Smoking 06/09/2019 12:00:00 AM EDT Unknown if ever smoked comp leted Unknown if ever smoked [facility] ([facility]) Alcohol intake 04/17/2019 12:00:00 AM EST Current non-d leah of alcohol (finding) completed Current non-drinker of alcohol (finding) [facility] Smoking 04/17/2019 12:00:00 AM EST Never smoker completed Never s [facility] Smoking 04/14/2019 12:00:00 AM EST Unknown if ever smoked comp leted Unknown if ever smoked [facility] ([facility]) Smoking 03/21/2019 12:00:00 AM EST Unknown if ever smoked comp leted Unknown if ever smoked [facility] ([facility]) Vital Signs ID Date Data Source UNK Name Value Range Interpretation Code Description Data Source(s) Diastolic blood pressure 0 mm[Hg] Normal (applies to non-numeric results) 0 mm[Hg] [facility] ([facility]) Systolic blood pressure 0 mm[Hg] Normal (applies t o non-numeric results) 0 mm[Hg] [facility] ([facility]) Body mass index (BMI) [Ratio] 0.00 kg/m2 No rmal (applies to non-numeric results) 0.00 kg/m2 [facility] Body weight Measured 0.00 lbs Normal (applies to n on-numeric results) 0.00 lbs [facility] ([facility]) Body height 0.00 in Normal (applies to non-numeric resu lts) 0.00 in [facility] ([facility]) Diastolic blood pressure 0 mm[Hg] Normal (applies to non-numeric results) 0 mm[Hg] [facility] ([facility]) Systolic blood pressure 0 mm[Hg] Normal (applies t o non-numeric results) 0 mm[Hg] [facility] ([facility]) Body mass index (BMI) [Ratio] 0.00 kg/m2 No rmal (applies to non-numeric results) 0.00 kg/m2 [facility] ([facility]) Body weight Measured 0.00 lbs Normal (applies to n on-numeric results) 0.00 lbs [facility] ([facility]) Body height 0.00 in Normal (applies to non-numeric resu lts) 0.00 in [facility] ([facility]) Diastolic blood pressure 82 mm[Hg] 82 mm[Hg] eCW1 ([facility]) Systolic blood pressure 130 mm[Hg] 130 mm[Hg] e CW1 ([facility]) Body temperature 96.9 [degF] 96.9 [degF] eCW1 ( [facility]) Respiratory rate 18 /min 18 /min eCW1 ([facility]) Heart rate 89 /min 89 /min eCW1 ([facility]) Body mass index (BMI) [Ratio] 41.96 kg/m2 41.96 kg/m2 eCW1 ([facility]) Body height 68 [in_i] 68 [in_i] eCW1 ([facility]) Body weight 276 [lb_av] 276 [lb_av] eCW1 ([facility]) Diastolic blood pressure 82 mm[Hg] 82 mm[Hg] eCW1 ([facility]) Systolic blood pressure 130 mm[Hg] 130 mm[Hg] e CW1 ([facility]) Body temperature 96.9 [degF] 96.9 [degF] eCW1 ( [facility]) Respiratory rate 18 /min 18 /min eCW1 ([facility]) Heart rate 89 /min 89 /min eCW1 ([facility]) Body mass index (BMI) [Ratio] 41.96 kg/m2 41.96 kg/m2 eCW1 ([facility]) Body height 68 [in_i] 68 [in_i] eCW1 ([facility]) Body weight 276 [lb_av] 276 [lb_av] eCW1 ([facility]) Diastolic blood pressure 0 mm[Hg] Normal (applies to non-numeric results) 0 mm[Hg] [facility] ([facility]) Systolic blood pressure 0 mm[Hg] Normal (applies t o non-numeric results) 0 mm[Hg] [facility] Body mass index (BMI) [Ratio] 0.00 kg/m2 No rmal (applies to non-numeric results) 0.00 kg/m2 [facility] ([facility]) Body weight Measured 0.00 lbs Normal (applies to n on-numeric results) 0.00 lbs [facility]) Body height 0.00 in Normal (applies to non-numeric resu lts) 0.00 in [facility] ([facility]) Diastolic blood pressure 0 mm[Hg] Normal (applies to non-numeric results) 0 mm[Hg] [facility] ([facility]) Systolic blood pressure 0 mm[Hg] Normal (applies t o non-numeric results) 0 mm[Hg] [facility] ([facility]) Body mass index (BMI) [Ratio] 0.00 kg/m2 No rmal (applies to non-numeric results) 0.00 kg/m2 [facility] ([facility]) Body weight Measured 0.00 lbs Normal (applies to n on-numeric results) 0.00 lbs [facility] ([facility]) Body height 0.00 in Normal (applies to non-numeric resu lts) 0.00 in [facility] ([facility]) Diastolic blood pressure 0 mm[Hg] Normal (applies to non-numeric results) 0 mm[Hg] [facility] ([facility]) Systolic blood pressure 0 mm[Hg] Normal (applies t o non-numeric results) 0 mm[Hg] [facility] ([facility]) Body mass index (BMI) [Ratio] 0.00 kg/m2 No rmal (applies to non-numeric results) 0.00 kg/m2 [facility] ([facility]) Body weight Measured 0.00 lbs Normal (applies to n on-numeric results) 0.00 lbs [facility] ([facility]) Body height 0.00 in Normal (applies to non-numeric resu lts) 0.00 in [facility] ([facility]) Diastolic blood pressure 0 mm[Hg] Normal (applies to non-numeric results) 0 mm[Hg] [facility] ([facility]) Systolic blood pressure 0 mm[Hg] Normal (applies t o non-numeric results) 0 mm[Hg] [facility] ([facility]) Body mass index (BMI) [Ratio] 0.00 kg/m2 No rmal (applies to non-numeric results) 0.00 kg/m2 [facility] ([facility]) Body weight Measured 0.00 lbs Normal (applies to n on-numeric results) 0.00 lbs [facility] ([facility]) Body height 0.00 in Normal (applies to non-numeric resu lts) 0.00 in [facility] ([facility]) Respiratory rate 20 /min 20 /min [facility] ( [facility] ) Heart rate 76 /min 76 /min [facility] ([facility] ) Diastolic blood pressure 80 mm[Hg] 80 mm[Hg] [facility] ([facility] ) Systolic blood pressure 124 mm[Hg] 124 mm[Hg] M EDENT ([facility] ) Diastolic blood pressure 80 mm[Hg] 80 mm[Hg] eCW1 ([facility]) Systolic blood pressure 128 mm[Hg] 128 mm[Hg] e CW1 ([facility]) Body temperature 97.3 [degF] 97.3 [degF] eCW1 ( [facility]) Respiratory rate 20 /min 20 /min eCW1 ([facility]) Heart rate 78 /min 78 /min eCW1 ([facility]) Body mass index (BMI) [Ratio] 41.44 kg/m2 41.44 kg/m2 eCW1 ([facility]) Body height 68 [in_i] 68 [in_i] eCW1 ([facility]) Body weight 272.6 [lb_av] 272.6 [lb_av] eCW1 ([facility]) Diastolic blood pressure--sitting 78 mm[Hg] 78 mm[Hg] [facility] ([facility]) large cuff, Ra Systolic blood pressure--sitting 130 mm[Hg] 130 mm[Hg] [facility] ([facility]) large cuff, Ra Heart rate 66 /min 66 /min [facility] ([facility] Body mass index (BMI) [Ratio] 40.0 kg/m2 40.0 k g/m2 [facility] ([facility]) Body height 69 [in_i] 69 [in_i] [facility] ([facility]) 5'9" Body weight 271.00 [lb_av] 271.00 [lb_av] [facility] T ([facility]) Diastolic blood pressure 0 mm[Hg] Normal (applies to non-numeric results) 0 mm[Hg] [facility] ([facility]) Systolic blood pressure 0 mm[Hg] Normal (applies t o non-numeric results) 0 mm[Hg] [facility] ([facility]) Body mass index (BMI) [Ratio] 0.00 kg/m2 No rmal (applies to non-numeric results) 0.00 kg/m2 [facility] ([facility]) Body weight Measured 0.00 lbs Normal (applies to n on-numeric results) 0.00 lbs [facility] ([facility]) Body height 0.00 in Normal (applies to non-numeric resu lts) 0.00 in [facility] ([facility]) Diastolic blood pressure 72 mm[Hg] 72 mm[Hg] eCW1 ([facility]) Systolic blood pressure 130 mm[Hg] 130 mm[Hg] e CW1 ([facility]) Body temperature 98.0 [degF] 98.0 [degF] eCW1 ( [facility]) Respiratory rate 20 /min 20 /min eCW1 ([facility]) Heart rate 83 /min 83 /min eCW1 ([facility]) Body mass index (BMI) [Ratio] 41.14 kg/m2 41.14 kg/m2 W1 ([facility]) Body height 68 [in_us] 68 [in_us] eCW1 ([facility]) Body weight Measured 270.6 [lb_av] 270.6 [lb_av ] eCW1 ([facility]) Diastolic blood pressure 0 mm[Hg] Normal (applies to non-numeric results) 0 mm[Hg] [facility] ([facility]) Systolic blood pressure 0 mm[Hg] Normal (applies t o non-numeric results) 0 mm[Hg] [facility]) Body mass index (BMI) [Ratio] 0.00 kg/m2 No rmal (applies to non-numeric results) 0.00 kg/m2 [facility] ([facility]) Body weight Measured 0.00 lbs Normal (applies to n on-numeric results) 0.00 lbs [facility] ([facility]) Body height 0.00 in Normal (applies to non-numeric resu lts) 0.00 in [facility] ([facility]) Diastolic blood pressure 0 mm[Hg] Normal (applies to non-numeric results) 0 mm[Hg] [facility] ([facility]) Systolic blood pressure 0 mm[Hg] Normal (applies t o non-numeric results) 0 mm[Hg] [facility] ([facility]) Body mass index (BMI) [Ratio] 0.00 kg/m2 No rmal (applies to non-numeric results) 0.00 kg/m2 [facility] ([facility]) Body weight Measured 0.00 lbs Normal (applies to n on-numeric results) 0.00 lbs [facility] ([facility]) Body height 0.00 in Normal (applies to non-numeric resu lts) 0.00 in [facility] ([facility]) Diastolic blood pressure 0 mm[Hg] Normal (applies to non-numeric results) 0 mm[Hg] [facility] ([facility]) Systolic blood pressure 0 mm[Hg] Normal (applies t o non-numeric results) 0 mm[Hg] [facility] ([facility]) Body mass index (BMI) [Ratio] 0.00 kg/m2 No rmal (applies to non-numeric results) 0.00 kg/m2 [facility] ([facility]) Body weight Measured 0.00 lbs Normal (applies to n on-numeric results) 0.00 lbs [facility]) Body height 0.00 in Normal (applies to non-numeric resu lts) 0.00 in [facility] ([facility]) Diastolic blood pressure 84 mm[Hg] 84 mm[Hg] eCW1 ([facility]) Systolic blood pressure 128 mm[Hg] 128 mm[Hg] e CW1 ([facility]) Body temperature 97.1 [degF] 97.1 [degF] eCW1 ( [facility]) Respiratory rate 20 /min 20 /min eCW1 ([facility]) Heart rate 68 /min 68 /min eCW1 ([facility]) Body mass index (BMI) [Ratio] 40.53 kg/m2 40.53 kg/m2 W1 ([facility]) Body height 68 [in_us] 68 [in_us] eCW1 ([facility]) Body weight Measured 266.6 [lb_av] 266.6 [lb_av ] eCW1 ([facility]) Respiratory rate 16 /min 16 /min [facility] ( [facility] ) Heart rate 76 /min 76 /min [facility] ([facility] ) Diastolic blood pressure 80 mm[Hg] 80 mm[Hg] [facility] ([facility] ) Systolic blood pressure 118 mm[Hg] 118 mm[Hg] M EDENT ([facility], ) Diastolic blood pressure 82 mm[Hg] 82 mm[Hg] eCW1 ([facility]) Systolic blood pressure 130 mm[Hg] 130 mm[Hg] e CW1 ([facility]) Body temperature 98.0 [degF] 98.0 [degF] eCW1 ( [facility]) Respiratory rate 18 /min 18 /min eCW1 ([facility]) Heart rate 89 /min 89 /min eCW1 ([facility]) Body mass index (BMI) [Ratio] 41.05 kg/m2 41.05 kg/m2 eCW1 ([facility]) Body height 68 [in_us] 68 [in_us] eCW1 ([facility]) Body weight Measured 270.0 [lb_av] 270.0 [lb_av ] eCW1 ([facility]) ID Date Data Source [id number] 04/29/2020 04:32:49 PM [facility] Name Value Range Interpretation Code Description Data Source(s) WEIGHT RECORDED 273 lb 273 lb [facility] ID Date Data Source [id number] [facility] Interpretation Code Description Data Source(s) WEIGHT RECORDED 269 lb 269 lb [facility] ID Date Data Source [id number] 04/23/2019 11:39:23 AM EST [facility] Name Value Range Interpretation Code Description Data Source(s) WEIGHT RECORDED 271.6 lb 271.6 lb [facility] Patient Treatment Plan of Care Planned Activity Planned Date Details Description Data Source (s) sildenafil 50 MG Oral Tablet 04/29/2020 12:00:00 AM EST eCW1 ([facility]) Fluticasone Propionate 50 MCG/ACT 03/03/2020 12:00:00 AM EST eCW1 ([facility]) Fluticasone Propionate 50 MCG/ACT 03/03/2020 12:00:00 AM EST eCW1 ([facility]) Fluticasone Propionate 50 MCG/ACT 03/03/2020 12:00:00 AM EST eCW1 ([facility]) Fluticasone Propionate 50 MCG/ACT 03/03/2020 12:00:00 AM EST eCW1 ([facility]) Fluticasone Propionate 50 MCG/ACT 03/03/2020 12:00:00 AM EST eCW1 ([facility]) Fluticasone Propionate 50 MCG/ACT 03/03/2020 12:00:00 AM EST eCW1 ([facility]) Fluticasone Propionate 50 MCG/ACT 03/03/2020 12:00:00 AM EST eCW1 ([facility]) Fluticasone Propionate 50 MCG/ACT 03/03/2020 12:00:00 AM EST eCW1 ([facility]) Docusate Sodium 100 MG Oral Capsule [Colace] 03/31/2019 12:00:00 AM EST eCW1 ([facility]) Hydroxyzine Hydrochloride 50 MG Oral Tablet 03/31/2019 12:00:00 AM EST eCW1 ([facility])
[2020-04-30 04:48] LABS: LITHIUM LEVEL 0.87 MEQ/L (0.60-1.20)
[2020-04-30] MEDS ORDERED: hydrOXYzine 50 MG TAB PO PRN (05:15)
[2020-04-30] MEDS ORDERED: DOCUSATE SODIUM 100MG CAPSULE PO PRN (05:15)
[2020-04-30 05:19] VITALS: BP 135/84
[2020-04-30] MEDS: LEVOTHYROXINE 100MCG TABLET (0.1MG) PO SCH (06:08)
[2020-04-30] MEDS: LOSARTAN 50MG TABLET PO SCH ×2 (08:15→22:25)
[2020-04-30] MEDS: PROPRANOLOL 10 MG TAB PO SCH ×3 (08:15→22:26)
[2020-04-30] MEDS: AMANTADINE 100MG TABLET PO SCH ×2 (08:15→16:01)
[2020-04-30] MEDS: LITHIUM CARBONATE 300 MG CAP PO SCH ×2 (08:16→18:22)
[2020-04-30] MEDS: FINASTERIDE 5 MG TAB PO SCH (08:16)
[2020-04-30] MEDS: FLUoxetine 10 MG CAP PO SCH (08:16)
[2020-04-30] MEDS: FLUTICASONE PROP 0.05% NASAL SPRAY 16 GM (FLONASE) SCH (08:16)
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
[2020-04-30 17:22] VITALS: BP 145/85
[2020-04-30] MEDS: MIRALAX *UNIT DOSE* 17GM PACKET PO SCH (22:20)
[2020-04-30] MEDS: AUSTEDO 12 MG PO SCH (22:20)
[2020-04-30] MEDS: TAMSULOSIN 0.4 MG CAP PO SCH (22:20)
[2020-04-30] MEDS: QUEtiapine FUMARATE 100 MG TAB PO SCH (22:21)
[2020-05-01 05:58] VITALS: BP 130/71
[2020-05-01] MEDS: LEVOTHYROXINE 100MCG TABLET (0.1MG) PO SCH (06:13)
[2020-05-01] MEDS: AMANTADINE 100MG TABLET PO SCH ×2 (08:19→16:40)
[2020-05-01] MEDS: AUSTEDO 12 MG PO SCH ×2 (08:20→21:33)
[2020-05-01] MEDS: FINASTERIDE 5 MG TAB PO SCH (08:20)
[2020-05-01] MEDS: FLUTICASONE PROP 0.05% NASAL SPRAY 16 GM (FLONASE) SCH (08:20)
[2020-05-01] MEDS: VITAMIN D 1,000 INTERNATIONAL UNITS TABLET PO SCH (08:21)
[2020-05-01] MEDS: LOSARTAN 50MG TABLET PO SCH ×2 (08:22→21:40)
[2020-05-01] MEDS: LITHIUM CARBONATE 300 MG CAP PO SCH ×2 (08:22→17:28)
[2020-05-01] MEDS: FLUoxetine 10 MG CAP PO SCH (08:23)
[2020-05-01] MEDS: PROPRANOLOL 10 MG TAB PO SCH ×3 (08:23→21:40)
[2020-05-01 16:35] VITALS: BP 138/89
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
[2020-05-01] MEDS: MIRALAX *UNIT DOSE* 17GM PACKET PO SCH (21:36)
[2020-05-01] MEDS: TAMSULOSIN 0.4 MG CAP PO SCH (21:40)
[2020-05-01] MEDS: QUEtiapine FUMARATE 100 MG TAB PO SCH (21:40)
[2020-05-01] MEDS: ACETAMINOPHEN TAB 650MG DOSE (2X325MG) PO PRN (21:41)
[2020-05-02] MEDS: LEVOTHYROXINE 100MCG TABLET (0.1MG) PO SCH (05:31)
[2020-05-02 05:52] VITALS: BP 149/80
[2020-05-02] MEDS: VITAMIN D 1,000 INTERNATIONAL UNITS TABLET PO SCH (08:24)
[2020-05-02] MEDS: LITHIUM CARBONATE 300 MG CAP PO SCH ×2 (08:24→17:04)
[2020-05-02] MEDS: PROPRANOLOL 10 MG TAB PO SCH ×3 (08:25→21:09)
[2020-05-02] MEDS: FLUTICASONE PROP 0.05% NASAL SPRAY 16 GM (FLONASE) SCH (08:25)
[2020-05-02] MEDS: PILL CUTTER 1 EACH XX PRN (08:25)
[2020-05-02] MEDS: AMANTADINE 100MG TABLET PO SCH ×2 (08:25→16:07)
[2020-05-02] MEDS: FINASTERIDE 5 MG TAB PO SCH (08:25)
[2020-05-02] MEDS: LOSARTAN 50MG TABLET PO SCH ×2 (08:25→21:09)
[2020-05-02] MEDS: FLUoxetine 10 MG CAP PO SCH (08:26)
[2020-05-02] MEDS: AUSTEDO 12 MG PO SCH ×2 (08:26→21:10)
--- NOTE | 2020-05-02 13:10 | MHIPNPDOC ---
[facility] Progress Note Progress Note DATE OF SERVICE: 05/02/20 HISTORY: Patient not feeling depressed. 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 Says he is bored living in the [facility] VITAL SIGNS: See below. NEW TEST RESULTS: None. CURRENT MEDICATIONS: See below. MENTAL STATUS EXAMINATION: Patient is a 49-year old male, who is [facility] with some intellectual limitation. Speech: Is loud but totally understandable. Language skills are, intact. Thought processes including:. No disturbance. Thought content:. No gross abnormalities. Abstract reasoning, and computation: Able to abstract. Description of associations:. No loose association. Description of abnormal or psychotic thoughts:. No abnormal or psychotic thoughts. Judgment:. Intact and reasonable. Insight: Somewhat limited. Orientation: 3. Recent and remote memory: Intact. Attention span and concentration:. Good. Language: No disturbance. Fund of knowledge: Reasonable. Mood: Good. Affect:, Congruent. DIAGNOSES: 1. Recurrent depression. 2., Intellectual disability. 3., None. ASSESSMENT: As above MANAGEMENT PLAN:, Most likely will return to penitentiary. TIME SPENT:, 30 minutes. Vital Signs Vital Signs Date Time Temp Pulse Resp B/P (MAP) Pulse Ox O2 Delivery O2 Flow Rate FiO2 05/02/20 08:25 68 149/80 05/02/20 05:52 97.0 20 97 Room Air Current Medications Current Medications Medications (Trade) Dose Ordered Sig/Yoselyn Route PRN Reason Start Time Stop Time Status Last Admin Dose Admin Acetaminophen (Tylenol Tab) 650 mg Q6HP PRN PO HEADACHE or DISCOMFORT 04/30/20 03:15 05/01/20 21:41 Al Hydrox/Mg Hydrox/Simethicone (Mylanta) 30 ml Q4HP PRN PO HEARTBURN/INDIGESTION 04/30/20 03:15 Amantadine HCl (Symmetrel) 100 mg DAILY PO 04/30/20 09:00 05/02/20 08:25 Amantadine HCl (Symmetrel) 200 mg DAILY@1700 PO 04/30/20 17:00 05/01/20 16:40 Docusate Sodium (Colace) 100 mg BID PRN PO CONSTIPATION 04/30/20 05:15 Finasteride (Proscar) 5 mg DAILY PO 04/30/20 09:00 05/02/20 08:25 Fluoxetine HCl (PROzac) 30 mg DAILY PO 04/30/20 09:00 05/02/20 08:26 Fluticasone Propionate (Flonase 0.05% Nasal [place]) 1 spray DAILY NA 04/30/20 09:00 05/02/20 08:25 Home Med (Med Rec Complete!) ASDIRECTED XX 04/30/20 03:50 04/30/20 03:48 DC Hydroxyzine HCl (Atarax) 50 mg DAILY PRN PO ANXIETY 04/30/20 05:15 Levothyroxine Sodium (Synthroid) 100 mcg DAILY@0600 PO 04/30/20 06:00 05/02/20 05:31 [place] Carbonate ([place] Carbonate) 600 mg BIDWM PO 04/30/20 08:00 05/02/20 08:24 Lorazepam (Ativan) 2 mg STAT STAT PO 04/30/20 01:29 04/30/20 01:31 DC 04/30/20 01:41 Losartan Potassium (Cozaar) 25 mg BID PO 04/30/20 09:00 05/02/20 08:25 Magnesium Hydroxide (Milk Of Magnesia) 30 ml DAILYPRN PRN PO CONSTIPATION 04/30/20 03:15 Miscellaneous (Unresolved Patient Own Med Order) SEE LABEL COMMENTS DAILY XX 04/30/20 09:00 04/30/20 15:40 DC Olanzapine (ZyPREXA ZYDIS) 5 mg BID PRN PO AGITATION 04/30/20 03:15 Patient Own Medication (Patient'S Own Med) [place] 12 MG (1 TABLET)... BID PO 04/30/20 21:00 05/02/20 08:26 Polyethylene Glycol (Miralax) 1 pkt QHS PO 04/30/20 21:00 05/01/20 21:36 Propranolol HCl (Inderal) 10 mg TID PO 04/30/20 09:00 05/02/20 08:25 Quetiapine Fumarate (SEROquel) 100 mg QHS PO 04/30/20 21:00 05/01/20 21:40 Tamsulosin HCl (Flomax) 0.8 mg QHS PO 04/30/20 21:00 05/01/20 21:40 Trazodone HCl (Desyrel) 50 mg QHSP PRN PO INSOMNIA 04/30/20 03:15 Vitamin D (Vitamin D) 2,000 units DAILY PO 05/01/20 09:00 05/02/20 08:24 Allergies Coded Allergies: NUTS (Verified Allergy, Severe, 08/28/19) divalproex sodium (Verified Allergy, Unknown, 08/28/19) fluphenazine (Verified Allergy, Unknown, 08/28/19) haloperidol (Verified Allergy, Unknown, 08/28/19) thioridazine (Verified Allergy, Unknown, 08/28/19) valproic acid (Verified Allergy, Unknown, 08/28/19) ROBBY CATHERINE MD May 02, 2020 13:10
--- NOTE | 2020-05-02 13:14 | MHIPNPDOC ---
[facility] Progress Note Progress Note DATE OF SERVICE: 05/01/20 HISTORY: This note is from 02/28/2021. Patient brought here for depression and some suicidal thoughts. Living in a [facility]pc. VITAL SIGNS: See below. NEW TEST RESULTS: . CURRENT MEDICATIONS: See below. 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 Speech: Is loud but comprehensible. Language skills are. Intact. Thought processes including: [place] leave the [place]. Thought content:. No gross disturbance. Abstract reasoning, and computation: Able to abstract. Description of associations:. No loose association. Description of abnormal or psychotic thoughts:. No psychotic thought. At this time. Judgment: Intact. Insight:. Fair. Orientation: 3. Recent and remote memory: Intact. Attention span and concentration:. No disturbance. Language: No disturbance. Fund of knowledge: Reasonable. Mood: Good. Affect:. Congruent. DIAGNOSES: 1. Adjustment disorder with depressed mood. 2. Intellectual disability. 3., None. ASSESSMENT: As above MANAGEMENT PLAN:. Will return to fpc. TIME SPENT: minutes. Vital Signs Vital Signs Date Time Temp Pulse Resp B/P (MAP) Pulse Ox O2 Delivery O2 Flow Rate FiO2 05/02/20 08:25 68 149/80 05/02/20 05:52 97.0 20 97 Room Air Current Medications Current Medications Medications (Trade) Dose Ordered Sig/Yoselyn Route PRN Reason Start Time Stop Time Status Last Admin Dose Admin Acetaminophen (Tylenol Tab) 650 mg Q6HP PRN PO HEADACHE or DISCOMFORT 04/30/20 03:15 05/01/20 21:41 Al Hydrox/Mg Hydrox/Simethicone (Mylanta) 30 ml Q4HP PRN PO HEARTBURN/INDIGESTION 04/30/20 03:15 Amantadine HCl (Symmetrel) 100 mg DAILY PO 04/30/20 09:00 05/02/20 08:25 Amantadine HCl (Symmetrel) 200 mg DAILY@1700 PO 04/30/20 17:00 05/01/20 16:40 Docusate Sodium (Colace) 100 mg BID PRN PO CONSTIPATION 04/30/20 05:15 Finasteride (Proscar) 5 mg DAILY PO 04/30/20 09:00 05/02/20 08:25 Fluoxetine HCl (PROzac) 30 mg DAILY PO 04/30/20 09:00 05/02/20 08:26 Fluticasone Propionate (Flonase 0.05% Nasal [place]) 1 spray DAILY NA 04/30/20 09:00 05/02/20 08:25 Home Med (Med Rec Complete!) ASDIRECTED XX 04/30/20 03:50 04/30/20 03:48 DC Hydroxyzine HCl (Atarax) 50 mg DAILY PRN PO ANXIETY 04/30/20 05:15 Levothyroxine Sodium (Synthroid) 100 mcg DAILY@0600 PO 04/30/20 06:00 05/02/20 05:31 [place] Carbonate ([place] Carbonate) 600 mg BIDWM PO 04/30/20 08:00 05/02/20 08:24 Lorazepam (Ativan) 2 mg STAT STAT PO 04/30/20 01:29 04/30/20 01:31 DC 04/30/20 01:41 Losartan Potassium (Cozaar) 25 mg BID PO 04/30/20 09:00 05/02/20 08:25 Magnesium Hydroxide (Milk Of Magnesia) 30 ml DAILYPRN PRN PO CONSTIPATION 04/30/20 03:15 Miscellaneous (Unresolved Patient Own Med Order) SEE LABEL COMMENTS DAILY XX 04/30/20 09:00 04/30/20 15:40 DC Olanzapine (ZyPREXA ZYDIS) 5 mg BID PRN PO AGITATION 04/30/20 03:15 Patient Own Medication (Patient'S Own Med) [place] 12 MG (1 TABLET)... BID PO 04/30/20 21:00 05/02/20 08:26 Polyethylene Glycol (Miralax) 1 pkt QHS PO 04/30/20 21:00 05/01/20 21:36 Propranolol HCl (Inderal) 10 mg TID PO 04/30/20 09:00 05/02/20 08:25 Quetiapine Fumarate (SEROquel) 100 mg QHS PO 04/30/20 21:00 05/01/20 21:40 Tamsulosin HCl (Flomax) 0.8 mg QHS PO 04/30/20 21:00 05/01/20 21:40 Trazodone HCl (Desyrel) 50 mg QHSP PRN PO INSOMNIA 04/30/20 03:15 Vitamin D (Vitamin D) 2,000 units DAILY PO 05/01/20 09:00 05/02/20 08:24 Allergies Coded Allergies: NUTS (Verified Allergy, Severe, 08/28/19) divalproex sodium (Verified Allergy, Unknown, 08/28/19) fluphenazine (Verified Allergy, Unknown, 08/28/19) haloperidol (Verified Allergy, Unknown, 08/28/19) thioridazine (Verified Allergy, Unknown, 08/28/19) valproic acid (Verified Allergy, Unknown, 08/28/19) ROBBY CATHERINE MD May 02, 2020 13:14
[2020-05-02] MEDS: ACETAMINOPHEN TAB 650MG DOSE (2X325MG) PO PRN ×2 (13:29→21:14)
[2020-05-02 18:31] VITALS: BP 141/78
[2020-05-02] MEDS: QUEtiapine FUMARATE 100 MG TAB PO SCH (21:07)
[2020-05-02] MEDS: MIRALAX *UNIT DOSE* 17GM PACKET PO SCH (21:07)
[2020-05-02] MEDS: TAMSULOSIN 0.4 MG CAP PO SCH (21:09)
[2020-05-03] MEDS: LEVOTHYROXINE 100MCG TABLET (0.1MG) PO SCH (06:02)
[2020-05-03 06:39] VITALS: BP 120/76
[2020-05-03] MEDS: VITAMIN D 1,000 INTERNATIONAL UNITS TABLET PO SCH (08:57)
[2020-05-03] MEDS: LITHIUM CARBONATE 300 MG CAP PO SCH ×2 (08:57→17:25)
[2020-05-03] MEDS: FLUoxetine 10 MG CAP PO SCH (08:57)
[2020-05-03] MEDS: PILL CUTTER 1 EACH XX PRN (08:58)
[2020-05-03] MEDS: PROPRANOLOL 10 MG TAB PO SCH ×3 (08:59→21:44)
[2020-05-03] MEDS: LOSARTAN 50MG TABLET PO SCH ×2 (09:00→21:44)
[2020-05-03] MEDS: FINASTERIDE 5 MG TAB PO SCH (09:00)
[2020-05-03] MEDS: AUSTEDO 12 MG PO SCH ×2 (09:01→21:38)
[2020-05-03] MEDS: FLUTICASONE PROP 0.05% NASAL SPRAY 16 GM (FLONASE) SCH (09:01)
--- NOTE | 2020-05-03 09:45 | MHIPNPDOC ---
[facility] Progress Note Progress Note DATE OF SERVICE: 05/03/20 HISTORY: Today is Day 4 for a 49 year old Single, Intellectually Disabled, Domiciled Male who came in by police escort for suicidal gesture by superficial cutting of his left wrist. He reported that he has stress over living in [place] and wants to return to the [place]. Per the ED Report: Patient states he cut his wrist tonight with a razor blade, has superficial LAC to L wrist, states he was having thoughts of suicide tonight. Pt states "I'm very depressed", gives various reasons for feeling this way, issues with friends, adds "I'm tired of living in the [facility], it's suicide central up here". Patient expressed his desire to live elsewhere however likes living at [facility], has outpatient services at [facility] and reports compliance with medications. Pt denies HI, denies AH/VH, denies any substance abuse issues. Pt is calm/cooperative, admits to prior attempts at self-harm by cutting wrists, continues to voice SI at this time, states if he returns home to [facility] he will kill himself. VITAL SIGNS: See below. CURRENT MEDICATIONS: See below. MENTAL STATUS EXAMINATION: Patient is a 49 year old Single, Intellectually Disabled, Domiciled Male who came in by police escort for suicidal gesture by superficial cutting of his left wrist. Patient is dressed appropriately, his eye contact is maintained and he has no psychomotor changes. Speech: Is fluid, conversant, normal rate, tone and loud volume Language skills are intact Thought processes including: linear and goal oriented Thought content: reports decreased depression and anxiety. Reports decreased suicidal/homicidal ideation, with no planning or intent. Abstract reasoning, and computation: fair Description of associations: denies, none observed Description of abnormal or psychotic thoughts: denies, none observed. Judgment: fair Insight: fair Orientation: alert and oriented to person, place, time and situation Recent and remote memory: intact Attention span and concentration: good Language: expansive Fund of knowledge: below average, patient is intellectual disabled Mood: mildly depressed mood Affect: reactive DIAGNOSES: 1. Schizoaffective Disorder, Depression 2. Intellectual Disability ASSESSMENT: Observed to be mildly grandiose "I am Polish because my accent gives me away. Can't you tell?" Depression has decreased, he reports that he has less suicidal ideation. He states that he wants to return to the [place] and live in an [facility]. He states that living in [place] makes him feel worse and he thinks about self-harm if he has to stay here. States he moved here in 2010 and he "feels trapped." He reported in his interview today that he has had significant past suicide attempts by overdose, cutting and hanging. "I have suicidal tendencies, but I am doing better, I think I would like to go on Sunday." MANAGEMENT PLAN: Patient to continue on prescribed medications. Probable Discharge on Sunday. TIME SPENT: 25 minutes. Vital Signs Vital Signs Date Time Temp Pulse Resp B/P (MAP) Pulse Ox O2 Delivery O2 Flow Rate FiO2 05/03/20 08:59 71 134/64 05/03/20 06:39 98.9 18 98 Room Air Current Medications Current Medications Medications (Trade) Dose Ordered Sig/Yoselyn Route PRN Reason Start Time Stop Time Status Last Admin Dose Admin Acetaminophen (Tylenol Tab) 650 mg Q6HP PRN PO HEADACHE or DISCOMFORT 04/30/20 03:15 05/02/20 21:14 Al Hydrox/Mg Hydrox/Simethicone (Mylanta) 30 ml Q4HP PRN PO HEARTBURN/INDIGESTION 04/30/20 03:15 Amantadine HCl (Symmetrel) 100 mg DAILY PO 04/30/20 09:00 05/02/20 08:25 Amantadine HCl (Symmetrel) 200 mg DAILY@1700 PO 04/30/20 17:00 05/02/20 16:07 Docusate Sodium (Colace) 100 mg BID PRN PO CONSTIPATION 04/30/20 05:15 Finasteride (Proscar) 5 mg DAILY PO 04/30/20 09:00 05/03/20 09:00 Fluoxetine HCl (PROzac) 30 mg DAILY PO 04/30/20 09:00 05/03/20 08:57 Fluticasone Propionate (Flonase 0.05% Nasal [place]) 1 spray DAILY NA 04/30/20 09:00 05/03/20 09:01 Home Med (Med Rec Complete!) ASDIRECTED XX 04/30/20 03:50 04/30/20 03:48 DC Hydroxyzine HCl (Atarax) 50 mg DAILY PRN PO ANXIETY 04/30/20 05:15 Levothyroxine Sodium (Synthroid) 100 mcg DAILY@0600 PO 04/30/20 06:00 05/03/20 06:02 [place] Carbonate ([place] Carbonate) 600 mg BIDWM PO 04/30/20 08:00 05/03/20 08:57 Lorazepam (Ativan) 2 mg STAT STAT PO 04/30/20 01:29 04/30/20 01:31 DC 04/30/20 01:41 Losartan Potassium (Cozaar) 25 mg BID PO 04/30/20 09:00 05/03/20 09:00 Magnesium Hydroxide (Milk Of Magnesia) 30 ml DAILYPRN PRN PO CONSTIPATION 04/30/20 03:15 Miscellaneous (Unresolved Patient Own Med Order) SEE LABEL COMMENTS DAILY XX 04/30/20 09:00 04/30/20 15:40 DC Olanzapine (ZyPREXA ZYDIS) 5 mg BID PRN PO AGITATION 04/30/20 03:15 Patient Own Medication (Patient'S Own Med) A[place]EDO 12 MG (1 TABLET)... BID PO 04/30/20 21:00 05/03/20 09:01 Polyethylene Glycol (Miralax) 1 pkt QHS PO 04/30/20 21:00 05/02/20 21:07 Propranolol HCl (Inderal) 10 mg TID PO 04/30/20 09:00 05/03/20 08:59 Quetiapine Fumarate (SEROquel) 100 mg QHS PO 04/30/20 21:00 05/02/20 21:07 Tamsulosin HCl (Flomax) 0.8 mg QHS PO 04/30/20 21:00 05/02/20 21:09 Trazodone HCl (Desyrel) 50 mg QHSP PRN PO INSOMNIA 04/30/20 03:15 05/02/20 21:09 Vitamin D (Vitamin D) 2,000 units DAILY PO 05/01/20 09:00 05/03/20 08:57 Allergies Coded Allergies: NUTS (Verified Allergy, Severe, 08/28/19) divalproex sodium (Verified Allergy, Unknown, 08/28/19) fluphenazine (Verified Allergy, Unknown, 08/28/19) haloperidol (Verified Allergy, Unknown, 08/28/19) thioridazine (Verified Allergy, Unknown, 08/28/19) valproic acid (Verified Allergy, Unknown, 08/28/19) ISABEL WILEY NP May 03, 2020 09:34
[2020-05-03] MEDS: AMANTADINE 100MG TABLET PO SCH ×2 (09:57→16:02)
[2020-05-03] MEDS: ACETAMINOPHEN TAB 650MG DOSE (2X325MG) PO PRN ×2 (13:53→21:49)
[2020-05-03 16:18] VITALS: BP 134/84
[2020-05-03] MEDS: MIRALAX *UNIT DOSE* 17GM PACKET PO SCH (21:42)
[2020-05-03] MEDS: traZODone 25MG PER 1/2 TABLET PO SCH (21:42)
[2020-05-03] MEDS: OLANZapine 2.5MG TABLET PO SCH (21:42)
[2020-05-03] MEDS: TAMSULOSIN 0.4 MG CAP PO SCH (21:44)
[2020-05-03] MEDS: QUEtiapine FUMARATE 100 MG TAB PO SCH (21:45)
[2020-05-04] MEDS: LEVOTHYROXINE 100MCG TABLET (0.1MG) PO SCH (06:09)
[2020-05-04 06:16] VITALS: BP 117/64
[2020-05-04] MEDS: PILL CUTTER 1 EACH XX PRN (08:40)
[2020-05-04] MEDS: FINASTERIDE 5 MG TAB PO SCH (08:40)
[2020-05-04] MEDS: VITAMIN D 1,000 INTERNATIONAL UNITS TABLET PO SCH (08:40)
[2020-05-04] MEDS: AMANTADINE 100MG TABLET PO SCH ×2 (08:40→16:33)
[2020-05-04] MEDS: PROPRANOLOL 10 MG TAB PO SCH ×3 (08:40→21:02)
[2020-05-04] MEDS: AUSTEDO 12 MG PO SCH ×2 (08:40→21:01)
[2020-05-04] MEDS: LITHIUM CARBONATE 300 MG CAP PO SCH ×2 (08:41→17:00)
[2020-05-04] MEDS: FLUoxetine 10 MG CAP PO SCH (08:41)
[2020-05-04] MEDS: FLUTICASONE PROP 0.05% NASAL SPRAY 16 GM (FLONASE) SCH (08:41)
[2020-05-04] MEDS: LOSARTAN 50MG TABLET PO SCH ×2 (08:41→21:02)
[2020-05-04] MEDS ORDERED: OLAN2.5T25 PO (15:48)
[2020-05-04 16:42] VITALS: BP 139/95
[2020-05-04] MEDS: TAMSULOSIN 0.4 MG CAP PO SCH (21:01)
[2020-05-04] MEDS: QUEtiapine FUMARATE 100 MG TAB PO SCH (21:02)
[2020-05-04] MEDS: OLANZapine 2.5MG TABLET PO SCH (21:02)
[2020-05-04] MEDS: traZODone 25MG PER 1/2 TABLET PO SCH (21:02)
[2020-05-04] MEDS: ACETAMINOPHEN TAB 650MG DOSE (2X325MG) PO PRN (21:03)
[2020-05-04] MEDS: MIRALAX *UNIT DOSE* 17GM PACKET PO SCH (21:03)
[2020-05-05] MEDS: LEVOTHYROXINE 100MCG TABLET (0.1MG) PO SCH (05:57)
[2020-05-05 06:38] VITALS: BP 112/64
[2020-05-05] MEDS: VITAMIN D 1,000 INTERNATIONAL UNITS TABLET PO SCH (08:56)
[2020-05-05] MEDS: AUSTEDO 12 MG PO SCH (08:56)
[2020-05-05] MEDS: LITHIUM CARBONATE 300 MG CAP PO SCH (08:57)
[2020-05-05 09:02] VITALS: BP 146/86
[2020-05-05] MEDS: FLUoxetine 10 MG CAP PO SCH (09:02)
[2020-05-05] MEDS: PROPRANOLOL 10 MG TAB PO SCH (09:02)
[2020-05-05] MEDS: LOSARTAN 50MG TABLET PO SCH (09:03)
[2020-05-05] MEDS: FLUTICASONE PROP 0.05% NASAL SPRAY 16 GM (FLONASE) SCH (09:04)
[2020-05-05] MEDS: AMANTADINE 100MG TABLET PO SCH (09:04)
[2020-05-05] MEDS: FINASTERIDE 5 MG TAB PO SCH (09:04)
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
[2020-05-05] MEDS ORDERED: PROZ10CA7 PO (14:00)
--- NOTE | 2020-05-05 15:54 | MHIPNPDOC ---
[facility] Progress Note Progress Note DATE OF SERVICE: 05/04/20 HISTORY: Today is Day 5 for a 49 year old Single, Intellectually Disabled, Domiciled Male who came in by police escort for suicidal gesture by superficial cutting of his left wrist. He reported that he has stress over living in [place] and wants to return to the [place]. Per the ED Report: Patient states he cut his wrist tonight with a razor blade, has superficial LAC to L wrist, states he was having thoughts of suicide tonight. Pt states "I'm very depressed", gives various reasons for feeling this way, issues with friends, adds "I'm tired of living in the [facility], it's suicide central up here". Patient expressed his desire to live elsewhere however likes living at [facility], has outpatient services at [facility] and reports compliance with medications. Pt denies HI, denies AH/VH, denies any substance abuse issues. Pt is calm/cooperative, admits to prior attempts at self-harm by cutting wrists, continues to voice SI at this time, states if he returns home to [facility] he will kill himself. VITAL SIGNS: See below. CURRENT MEDICATIONS: See below. MENTAL STATUS EXAMINATION: Patient is a 49 year old Single, Intellectually Disabled, Domiciled Male who came in by police escort for suicidal gesture by superficial cutting of his left wrist. Patient is dressed appropriately, his eye contact is maintained and he has no psychomotor changes. Speech: Is fluid, conversant, normal rate, tone and loud volume Language skills are intact Thought processes including: linear and goal oriented Thought content: reports decreased depression and anxiety. Reports decreased suicidal/homicidal ideation, with no planning or intent. Abstract reasoning, and computation: fair Description of associations: denies, none observed Description of abnormal or psychotic thoughts: denies, none observed. Judgment: fair Insight: fair Orientation: alert and oriented to person, place, time and situation Recent and remote memory: intact Attention span and concentration: good Language: expansive Fund of knowledge: below average, patient is intellectual disabled Mood: mildly depressed mood Affect: reactive DIAGNOSES: 1. Schizoaffective Disorder, Depression 2. Intellectual Disability ASSESSMENT: Patient reports that he is feeling better, wants to return home. Denies depression and suicidal thinking. Has been pleasant on the unit, social with peers and staff, compliant with treatmend and medications MANAGEMENT PLAN: Patient to continue on prescribed medications. Discharge on Sunday. TIME SPENT: 25 minutes. Vital Signs Vital Signs Date Time Temp Pulse Resp B/P (MAP) Pulse Ox O2 Delivery O2 Flow Rate FiO2 05/05/20 09:02 102 146/86 05/05/20 06:38 98.3 18 98 Room Air Current Medications Current Medications Medications (Trade) Dose Ordered Sig/Yoselyn Route PRN Reason Start Time Stop Time Status Last Admin Dose Admin Acetaminophen (Tylenol Tab) 650 mg Q6HP PRN PO HEADACHE or DISCOMFORT 04/30/20 03:15 05/04/20 21:03 Al Hydrox/Mg Hydrox/Simethicone (Mylanta) 30 ml Q4HP PRN PO HEARTBURN/INDIGESTION 04/30/20 03:15 Amantadine HCl (Symmetrel) 100 mg DAILY PO 04/30/20 09:00 05/05/20 09:04 Amantadine HCl (Symmetrel) 200 mg DAILY@1700 PO 04/30/20 17:00 05/04/20 16:33 Docusate Sodium (Colace) 100 mg BID PRN PO CONSTIPATION 04/30/20 05:15 Finasteride (Proscar) 5 mg DAILY PO 04/30/20 09:00 05/05/20 09:04 Fluoxetine HCl (PROzac) 30 mg DAILY PO 04/30/20 09:00 05/05/20 09:02 Fluticasone Propionate (Flonase 0.05% Nasal [place]) 1 spray DAILY NA 04/30/20 09:00 05/05/20 09:04 Home Med (Med Rec Complete!) ASDIRECTED XX 04/30/20 03:50 04/30/20 03:48 DC Hydroxyzine HCl (Atarax) 50 mg DAILY PRN PO ANXIETY 04/30/20 05:15 05/04/20 22:26 Levothyroxine Sodium (Synthroid) 100 mcg DAILY@0600 PO 04/30/20 06:00 05/05/20 05:57 [place] Carbonate ([place] Carbonate) 600 mg BIDWM PO 04/30/20 08:00 05/05/20 08:57 Lorazepam (Ativan) 2 mg STAT STAT PO 04/30/20 01:29 04/30/20 01:31 DC 04/30/20 01:41 Losartan Potassium (Cozaar) 25 mg BID PO 04/30/20 09:00 05/05/20 09:03 Magnesium Hydroxide (Milk Of Magnesia) 30 ml DAILYPRN PRN PO CONSTIPATION 04/30/20 03:15 Miscellaneous (Unresolved Patient Own Med Order) SEE LABEL COMMENTS DAILY XX 04/30/20 09:00 04/30/20 15:40 DC Olanzapine (ZyPREXA ZYDIS) 5 mg BID PRN PO AGITATION 04/30/20 03:15 Olanzapine (ZyPREXA) 2.5 mg QHS PO 05/03/20 21:00 05/04/20 21:02 Patient Own Medication (Patient'S Own Med) A[place]EDO 12 MG (1 TABLET)... BID PO 04/30/20 21:00 05/05/20 08:56 Polyethylene Glycol (Miralax) 1 pkt QHS PO 04/30/20 21:00 05/04/20 21:03 Propranolol HCl (Inderal) 10 mg TID PO 04/30/20 09:00 05/05/20 09:02 Quetiapine Fumarate (SEROquel) 100 mg QHS PO 04/30/20 21:00 05/04/20 21:02 Tamsulosin HCl (Flomax) 0.8 mg QHS PO 04/30/20 21:00 05/04/20 21:01 Trazodone HCl (Desyrel) 25 mg QHS PO 05/03/20 21:00 05/04/20 21:02 Trazodone HCl (Desyrel) 50 mg QHSP PRN PO INSOMNIA 04/30/20 03:15 05/03/20 10:07 DC 05/02/20 21:09 Vitamin D (Vitamin D) 2,000 units DAILY PO 05/01/20 09:00 05/05/20 08:56 Allergies Coded Allergies: NUTS (Verified Allergy, Severe, 08/28/19) divalproex sodium (Verified Allergy, Unknown, 08/28/19) fluphenazine (Verified Allergy, Unknown, 08/28/19) haloperidol (Verified Allergy, Unknown, 08/28/19) thioridazine (Verified Allergy, Unknown, 08/28/19) valproic acid (Verified Allergy, Unknown, 08/28/19) ISABEL WILEY NP May 05, 2020 10:12
== END 2020-05-05 10:52 | disposition home or self-care (01) | DRG 750 ==
LOC: M ED 01:10 → M ED INP 01:11 → M PSY 05:03
PROVIDERS: ADMIT Psychiatry & Neurology Psychiatry; ATTEND Psychiatry & Neurology Psychiatry
DX: F25.1 Schizoaffective disorder, depressive type (principal); I49.5 Sick sinus syndrome; D69.6 Thrombocytopenia, unspecified; F79 Unspecified intellectual disabilities; E66.01 Morbid (severe) obesity due to excess calories; F32.9 Major depressive disorder, single episode, unspecified; F43.21 Adjustment disorder with depressed mood; Z91.018 Allergy to other foods; B18.2 Chronic viral hepatitis C; E03.9 Hypothyroidism, unspecified; N41.9 Inflammatory disease of prostate, unspecified; I10 Essential (primary) hypertension; M47.812 Spondylosis without myelopathy or radiculopathy, cervical region; Z20.822 Contact with and (suspected) exposure to COVID-19; Z95.0 Presence of cardiac pacemaker; Z88.8 Allergy status to other drugs, medicaments and biological substances; Z79.899 Other long term (current) drug therapy; S61.512A Laceration without foreign body of left wrist, initial encounter; X78.8XXA Intentional self-harm by other sharp object, initial encounter; Y92.199 Unspecified place in other specified residential institution as the place of occurrence of the external cause

== ENCOUNTER → 2020-05-14 | Outpatient (CLI) | payer OTHER ==
[~2020-05-14] MED LIST changes: +NAPR500T6 PO; +OLAN2.5T25 PO; +PROZ10CA7 PO; +TUMS750C5 PO
[2020-05-14 08:55] LABS: ALBUMIN 3.9 GM/DL (3.2-5.2); BLOOD UREA NITROGEN 15 MG/DL (7-18); CALCIUM LEVEL 9.3 MG/DL (8.5-10.1); CARBON DIOXIDE LEVEL 29 MEQ/L (21-32); CHLORIDE LEVEL 108 MEQ/L (98-107); CREATININE FOR GFR 1.14 MG/DL (0.70-1.30); GLOMERULAR FILTRATION RATE > 60.0 (>60); GLUCOSE, FASTING 90 MG/DL (70-100); LITHIUM LEVEL 0.63 MEQ/L (0.60-1.20); PHOSPHORUS LEVEL 5.1 MG/DL (2.5-4.9); POTASSIUM SERUM 4.1 MEQ/L (3.5-5.1); SODIUM LEVEL 139 MEQ/L (136-145)
--- NOTE | 2020-05-14 10:00 | REP ---
INDICATION: CKD STAGE 3A- LABS FIRST COMPARISON: None TECHNIQUE: Real time collins scale ultrasound examination using curved array transducer followed by color Doppler evaluation of the renal vasculature. FINDINGS: The kidneys are normal in reniform shape and size with increased central sinus fat consistent with chronic medical renal disease. Right kidney measures 12.3 x 5.6 x 6.7 cm without hydronephrosis, nephrolithiasis, cystic or renal mass lesion. Left kidney measures 12.7 x 5.2 x 6.4 cm and includes small 1.9 cm lower pole cyst with calcification. Color Doppler evaluation . 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 LEFT KIDNEY Renal arterial velocity: 72.9 centimeters/second Renal-aortic ratio: 0.73 Intrarenal resistive indices: 0.57-0.62 Intrarenal acceleration times: 0.042-0.058 IMPRESSION: 1. Kidneys demonstrate changes related to medical renal disease and small left lower pole cyst. 2. Doppler interegation without sonographic evidence for renal arterial stenosis. <Electronically signed by Rio Bates > 05/14/20 [id number]
[2020-05-14 12:16] LABS: PROLACTIN 25.6 NG/ML (2.1-17.7)
[2020-05-14 12:17] LABS: PTH INTACT 43.8 PG/ML (18.5-88.0)
[2020-05-15 18:07] LABS: TESTOSTERONE FREE (DIRECT) 6.4 pg/mL (6.8-21.5)
== END ==
LOC: M RAD 07:43
PROVIDERS: ATTEND Family Medicine
DX: N28.1 Cyst of kidney, acquired (principal); I70.1 Atherosclerosis of renal artery; N18.31 Chronic kidney disease, stage 3a

== ENCOUNTER → 2020-06-21 | Outpatient (CLI) | payer OTHER ==
[2020-06-21 11:00] LABS: BASO # 0.1 10^3/uL (0.0-0.2); BASO % 0.8 % (0.0-1.0); EOS # 0.6 10^3/uL (0.0-0.5); EOS % 7.2 % (0.0-3.0); HEMATOCRIT 45.6 % (42.0-52.0); HEMOGLOBIN 15.2 g/dl (13.5-17.5); LYMPH # 3.2 10^3/uL (1.5-5.0); LYMPH % 36.8 % (24.0-44.0); MEAN CORPUSCULAR HEMOGLOBIN 32.1 pg (27.0-33.0); MEAN CORPUSCULAR HGB CONC 33.3 g/dl (32.0-36.5); MEAN CORPUSCULAR VOLUME 96.4 fl (80.0-96.0); MONO # 0.6 10^3/uL (0.0-0.8); MONO % 7.3 % (2.0-8.0); NEUTROPHILS # 4.1 10^3/uL (1.5-8.5); NEUTROPHILS % 47.6 % (36.0-66.0); PLATELET COUNT, AUTOMATED 159 10^3/uL (150-450); RED BLOOD COUNT 4.73 10^6/uL (4.30-6.10); WHITE BLOOD COUNT 8.6 10^3/uL (4.0-10.0)
[2020-06-21 11:44] LABS: ALBUMIN 3.9 GM/DL (3.2-5.2); ALT/SGPT 61 U/L (12-78); BILIRUBIN,TOTAL 0.4 MG/DL (0.2-1.0); BLOOD UREA NITROGEN 14 MG/DL (7-18); CALCIUM LEVEL 9.2 MG/DL (8.5-10.1); CARBON DIOXIDE LEVEL 26 MEQ/L (21-32); CHLORIDE LEVEL 107 MEQ/L (98-107); CREATININE FOR GFR 1.31 MG/DL (0.70-1.30); GLOMERULAR FILTRATION RATE > 60.0 (>56); GLUCOSE, FASTING 84 MG/DL (70-100); POTASSIUM SERUM 4.3 MEQ/L (3.5-5.1); SODIUM LEVEL 140 MEQ/L (136-145); TOTAL PROTEIN 7.1 GM/DL (6.4-8.2)
[2020-06-21 14:21] LABS: CREATININE, URINE 29.4 MG/DL; MALB URINE SIEMENS < 5.0 MG/L
[2020-06-21 15:15] LABS: PTH INTACT 64.1 PG/ML (18.5-88.0); TOTAL 25(OH) VITAMIN D 40.9 NG/ML (30.0-100.0)
== END ==
LOC: M LAB 09:37
PROVIDERS: ATTEND Family Medicine
DX: E03.9 Hypothyroidism, unspecified (principal)

== ENCOUNTER → 2020-09-09 | Outpatient (CLI) | payer OTHER ==
[2020-09-09 11:01] LABS: BASO # 0.1 10^3/uL (0.0-0.2); BASO % 0.8 % (0.0-1.0); EOS # 0.9 10^3/uL (0.0-0.5); EOS % 10.5 % (0.0-3.0); HEMATOCRIT 47.2 % (42.0-52.0); LYMPH # 2.7 10^3/uL (1.5-5.0); LYMPH % 31.5 % (24.0-44.0); MEAN CORPUSCULAR HEMOGLOBIN 32.7 pg (27.0-33.0); MEAN CORPUSCULAR HGB CONC 33.9 g/dl (32.0-36.5); MEAN CORPUSCULAR VOLUME 96.5 fl (80.0-96.0); MONO # 0.6 10^3/uL (0.0-0.8); MONO % 6.8 % (2.0-8.0); NEUTROPHILS # 4.2 10^3/uL (1.5-8.5); PLATELET COUNT, AUTOMATED 168 10^3/uL (150-450); RED BLOOD COUNT 4.89 10^6/uL (4.30-6.10); WHITE BLOOD COUNT 8.5 10^3/uL (4.0-10.0)
[2020-09-09 11:23] LABS: HEMOGLOBIN A1c 4.9 %
[2020-09-09 11:34] LABS: ALBUMIN 4.1 GM/DL (3.2-5.2); ALT/SGPT 65 U/L (12-78); BILIRUBIN,TOTAL 0.3 MG/DL (0.2-1.0); BLOOD UREA NITROGEN 17 MG/DL (7-18); CALCIUM LEVEL 9.8 MG/DL (8.5-10.1); CARBON DIOXIDE LEVEL 23 MEQ/L (21-32); CHLORIDE LEVEL 111 MEQ/L (98-107); GLOMERULAR FILTRATION RATE > 60.0 (>56); GLUCOSE, FASTING 94 MG/DL (70-100); IMMUNOGLOBULIN G 1100 MG/DL (681-1648); IMMUNOGLOBULIN M 66.5 MG/DL (40-230); LITHIUM LEVEL 0.67 MEQ/L (0.60-1.20); POTASSIUM SERUM 4.3 MEQ/L (3.5-5.1); SODIUM LEVEL 142 MEQ/L (136-145); TOTAL PROTEIN 7.4 GM/DL (6.4-8.2)
[2020-09-09 11:35] LABS: VITAMIN B12 LEVEL 481 PG/ML (247-911)
== END ==
LOC: M LAB 09:05
PROVIDERS: ATTEND Family Medicine
DX: F31.9 Bipolar disorder, unspecified (principal)

== ENCOUNTER → 2020-09-24 | Outpatient (CLI) | payer OTHER ==
[2020-09-24 09:19] LABS: BASO # 0.1 10^3/uL (0.0-0.2); BASO % 0.8 % (0.0-1.0); EOS # 0.9 10^3/uL (0.0-0.5); EOS % 9.3 % (0.0-3.0); HEMATOCRIT 46.9 % (42.0-52.0); HEMOGLOBIN 15.6 g/dl (13.5-17.5); LYMPH # 3.7 10^3/uL (1.5-5.0); LYMPH % 38.6 % (24.0-44.0); MEAN CORPUSCULAR HEMOGLOBIN 32.5 pg (27.0-33.0); MEAN CORPUSCULAR HGB CONC 33.3 g/dl (32.0-36.5); MEAN CORPUSCULAR VOLUME 97.7 fl (80.0-96.0); MONO # 0.8 10^3/uL (0.0-0.8); MONO % 7.8 % (2.0-8.0); NEUTROPHILS # 4.2 10^3/uL (1.5-8.5); NEUTROPHILS % 43.2 % (36.0-66.0); PLATELET COUNT, AUTOMATED 167 10^3/uL (150-450); WHITE BLOOD COUNT 9.7 10^3/uL (4.0-10.0)
[2020-09-24 09:29] LABS: HEMOGLOBIN A1c 4.8 %
[2020-09-24 09:48] LABS: ALBUMIN 3.9 GM/DL (3.2-5.2); ALT/SGPT 60 U/L (12-78); BILIRUBIN,TOTAL 0.5 MG/DL (0.2-1.0); BLOOD UREA NITROGEN 15 MG/DL (7-18); CALCIUM LEVEL 9.3 MG/DL (8.5-10.1); CARBON DIOXIDE LEVEL 25 MEQ/L (21-32); CHLORIDE LEVEL 112 MEQ/L (98-107); CHOLESTEROL LEVEL 206 MG/DL (<200); CHOLESTEROL RISK RATIO 3.961 (<5); CREATININE FOR GFR 1.24 MG/DL (0.70-1.30); GLOMERULAR FILTRATION RATE > 60.0 (>56); GLUCOSE, FASTING 85 MG/DL (70-100); HDL CHOLESTEROL 52 MG/DL (>40); LDL CHOLESTEROL 97 MG/DL (<100); LITHIUM LEVEL 0.51 MEQ/L (0.60-1.20); NON-HDL-C 154 MG/DL; POTASSIUM SERUM 4.3 MEQ/L (3.5-5.1); SODIUM LEVEL 143 MEQ/L (136-145); TOTAL PROTEIN 7.3 GM/DL (6.4-8.2); TRIGLYCERIDES LEVEL 285 MG/DL (<150)
== END ==
LOC: M LAB 08:32
PROVIDERS: ATTEND Nurse Practitioner Psychiatric/Mental Health
DX: F31.0 Bipolar disorder, current episode hypomanic (principal)

== ENCOUNTER → 2020-10-28 | Outpatient (CLI) | payer OTHER ==
[2020-10-28 11:13] LABS: BASO % 0.6 % (0.0-1.0); EOS # 0.5 10^3/uL (0.0-0.5); EOS % 7.3 % (0.0-3.0); HEMATOCRIT 42.8 % (42.0-52.0); HEMOGLOBIN 14.6 g/dl (13.5-17.5); LYMPH # 2.5 10^3/uL (1.5-5.0); LYMPH % 38.5 % (24.0-44.0); MEAN CORPUSCULAR HEMOGLOBIN 32.3 pg (27.0-33.0); MEAN CORPUSCULAR HGB CONC 34.1 g/dl (32.0-36.5); MEAN CORPUSCULAR VOLUME 94.7 fl (80.0-96.0); MONO # 0.5 10^3/uL (0.0-0.8); MONO % 7.3 % (2.0-8.0); PLATELET COUNT, AUTOMATED 145 10^3/uL (150-450); RED BLOOD COUNT 4.52 10^6/uL (4.30-6.10); WHITE BLOOD COUNT 6.6 10^3/uL (4.0-10.0)
[2020-10-28 11:44] LABS: BLOOD UREA NITROGEN 12 MG/DL (7-18); CALCIUM LEVEL 8.8 MG/DL (8.5-10.1); CARBON DIOXIDE LEVEL 23 MEQ/L (21-32); CHLORIDE LEVEL 111 MEQ/L (98-107); CREATININE FOR GFR 1.12 MG/DL (0.70-1.30); GLOMERULAR FILTRATION RATE > 60.0 (>56); GLUCOSE, FASTING 92 MG/DL (70-100); POTASSIUM SERUM 4.1 MEQ/L (3.5-5.1); SODIUM LEVEL 138 MEQ/L (136-145)
[2020-10-28 11:45] LABS: ALBUMIN 3.8 GM/DL (3.2-5.2); ALT/SGPT 81 U/L (12-78); BILIRUBIN,TOTAL 0.3 MG/DL (0.2-1.0); TOTAL PROTEIN 6.8 GM/DL (6.4-8.2)
== END ==
LOC: M LAB 10:24
PROVIDERS: ATTEND Physician Assistant Medical
DX: 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, extranodal and solid organ sites (principal)

== ENCOUNTER → 2020-11-30 | Outpatient (CLI) | payer OTHER | LOC: M SLEEP HO 10:22 | PROVIDERS: ATTEND Family Medicine | DX: G47.33 Obstructive sleep apnea (adult) (pediatric) (principal) ==

== ENCOUNTER → 2021-02-21 | Outpatient (CLI) | payer OTHER ==
[~2021-02-21] MED LIST changes: +ACET-897 PO; +FLUO-96 PO; -FLUO10CA16 PO; +FLUO10CA18 PO; -FLUO20CA20 PO; +LOSA25TA13 PO; -LOSA25TA14 PO; +LOSA50TA28; +LOSA50TA28 PO; -LOSA50TA88; -LOSA50TA88 PO
[2021-02-21 10:27] LABS: BASO # 0.1 10^3/uL (0.0-0.2); BASO % 0.7 % (0.0-1.0); EOS # 0.6 10^3/uL (0.0-0.5); EOS % 7.3 % (0.0-3.0); HEMATOCRIT 46.5 % (42.0-52.0); HEMOGLOBIN 15.6 g/dl (13.5-17.5); LYMPH # 2.6 10^3/uL (1.5-5.0); LYMPH % 34.5 % (24.0-44.0); MEAN CORPUSCULAR HEMOGLOBIN 32.4 pg (27.0-33.0); MEAN CORPUSCULAR HGB CONC 33.5 g/dl (32.0-36.5); MEAN CORPUSCULAR VOLUME 96.7 fl (80.0-96.0); MONO # 0.6 10^3/uL (0.0-0.8); MONO % 7.5 % (2.0-8.0); NEUTROPHILS # 3.8 10^3/uL (1.5-8.5); NEUTROPHILS % 49.7 % (36.0-66.0); PLATELET COUNT, AUTOMATED 169 10^3/uL (150-450); RED BLOOD COUNT 4.81 10^6/uL (4.30-6.10); WHITE BLOOD COUNT 7.7 10^3/uL (4.0-10.0)
[2021-02-21 11:02] LABS: ALBUMIN 4.1 GM/DL (3.2-5.2); ALT/SGPT 70 U/L (12-78); BILIRUBIN,TOTAL 0.7 MG/DL (0.2-1.0); BLOOD UREA NITROGEN 18 MG/DL (7-18); CALCIUM LEVEL 9.3 MG/DL (8.5-10.1); CARBON DIOXIDE LEVEL 25 MEQ/L (21-32); CHLORIDE LEVEL 110 MEQ/L (98-107); CREATININE FOR GFR 1.33 MG/DL (0.70-1.30); FREE T4 0.71 NG/DL (0.76-1.46); GLOMERULAR FILTRATION RATE > 60.0 (>56); GLUCOSE, FASTING 102 MG/DL (70-100); LITHIUM LEVEL 0.84 MEQ/L (0.60-1.20); POTASSIUM SERUM 4.1 MEQ/L (3.5-5.1); PTH INTACT 43.6 PG/ML (18.5-88.0); SODIUM LEVEL 140 MEQ/L (136-145); THYROID STIMULATING HORMONE 0.911 uIU/ML (0.358-3.740); TOTAL 25(OH) VITAMIN D 35.5 NG/ML (30.0-100.0); TOTAL PROTEIN 7.3 GM/DL (6.4-8.2)
[2021-02-23 19:09] LABS: INSULIN LEVEL 37.9 uIU/mL (2.6-24.9)
== END ==
LOC: M LAB 09:45
PROVIDERS: ATTEND Family Medicine
DX: R73.01 Impaired fasting glucose (principal)

== ENCOUNTER 2021-02-26 15:13 | Emergency (ER) | payer OTHER ==
[~2021-02-26] VITALS: Ht 172.7 cm; Wt 125.3 kg
[~2021-02-26 15:13] MED LIST changes: -ACET-897 PO; -FLUO-96 PO; +FLUO10CA16 PO; -FLUO10CA18 PO; +FLUO20CA20 PO; -LOSA25TA13 PO; +LOSA25TA14 PO; -LOSA50TA28; -LOSA50TA28 PO; +LOSA50TA88; +LOSA50TA88 PO
[2021-02-26] MEDS ORDERED: IBUPROFEN 800 MG TAB PO ONE (15:55)
--- NOTE | 2021-02-26 16:11 | REP ---
INDICATION: R/O L SHOULDER DISLOCATION COMPARISON: None. TECHNIQUE: Internal rotation, external rotation, and Y view. FINDINGS: No acute fracture or dislocation. The acromioclavicular and glenohumeral joints are intact. No periarticular calcifications or degenerative changes are appreciated. Sub acromial space is normal. Surrounding soft tissues are unremarkable. IMPRESSION: Normal left shoulder radiographs. No fracture or dislocation appreciated. <Electronically signed by Rio Bates > 02/26/21 [id number]
[2021-02-26] MEDS ORDERED: ACET-897 PO (16:51)
[2021-02-26 17:00] VITALS: BP 132/82
== END 2021-02-26 17:00 | disposition home or self-care (01) ==
LOC: M ED 15:13
DX: M25.512 Pain in left shoulder (principal); I10 Essential (primary) hypertension; F25.9 Schizoaffective disorder, unspecified; F31.9 Bipolar disorder, unspecified; E03.9 Hypothyroidism, unspecified; B19.20 Unspecified viral hepatitis C without hepatic coma; N40.0 Benign prostatic hyperplasia without lower urinary tract symptoms; Z87.820 Personal history of traumatic brain injury; Z79.899 Other long term (current) drug therapy; Z79.890 Hormone replacement therapy; Z88.8 Allergy status to other drugs, medicaments and biological substances; Z91.018 Allergy to other foods

== ENCOUNTER → 2021-05-23 | Outpatient (CLI) | payer OTHER ==
[~2021-05-23] MED LIST changes: +ACET-897 PO; +FLUO-96 PO; -FLUO10CA16 PO; +FLUO10CA18 PO; -FLUO20CA20 PO; +LOSA25TA13 PO; -LOSA25TA14 PO; +LOSA50TA28; +LOSA50TA28 PO; -LOSA50TA88; -LOSA50TA88 PO
[2021-05-23 13:25] LABS: ALT/SGPT 76 U/L (12-78); BLOOD UREA NITROGEN 16 MG/DL (7-18); CALCIUM LEVEL 9.2 MG/DL (8.5-10.1); CARBON DIOXIDE LEVEL 24 MEQ/L (21-32); CHLORIDE LEVEL 110 MEQ/L (98-107); CHOLESTEROL LEVEL 182 MG/DL (<200); CHOLESTEROL RISK RATIO 3.791 (<5); FREE T4 0.74 NG/DL (0.76-1.46); GLOMERULAR FILTRATION RATE > 60.0 (>56); GLUCOSE, FASTING 84 MG/DL (70-100); HDL CHOLESTEROL 48 MG/DL (>40); LDL CHOLESTEROL 69 MG/DL (<100); MAGNESIUM LEVEL 2.2 MG/DL (1.8-2.4); NON-HDL-C 134 MG/DL; NT-PRO BNP 51 PG/ML (<125); POTASSIUM SERUM 4.2 MEQ/L (3.5-5.1); SODIUM LEVEL 139 MEQ/L (136-145); THYROID STIMULATING HORMONE 0.708 uIU/ML (0.358-3.740); TOTAL PROTEIN 6.8 GM/DL (6.4-8.2); TRIGLYCERIDES LEVEL 323 MG/DL (<150)
== END ==
LOC: M LAB 09:29
PROVIDERS: ATTEND Family Medicine
DX: E03.9 Hypothyroidism, unspecified (principal); R73.01 Impaired fasting glucose; I10 Essential (primary) hypertension

== ENCOUNTER → 2021-12-22 | Outpatient (CLI) | payer OTHER ==
[2021-12-22 16:55] LABS: BASO # 0.1 10^3/uL (0.0-0.2); BASO % 0.5 % (0.0-1.0); EOS # 0.4 10^3/uL (0.0-0.5); EOS % 3.8 % (0.0-3.0); HEMATOCRIT 47.4 % (42.0-52.0); HEMOGLOBIN 15.7 g/dl (13.5-17.5); LYMPH # 3.2 10^3/uL (1.5-5.0); LYMPH % 29.4 % (24.0-44.0); MEAN CORPUSCULAR HEMOGLOBIN 32.4 pg (27.0-33.0); MEAN CORPUSCULAR HGB CONC 33.1 g/dl (32.0-36.5); MEAN CORPUSCULAR VOLUME 97.9 fl (80.0-96.0); MONO # 0.8 10^3/uL (0.0-0.8); MONO % 7.7 % (2.0-8.0); NEUTROPHILS # 6.3 10^3/uL (1.5-8.5); NEUTROPHILS % 58.3 % (36.0-66.0); PLATELET COUNT, AUTOMATED 207 10^3/uL (150-450); RED BLOOD COUNT 4.84 10^6/uL (4.30-6.10); WHITE BLOOD COUNT 10.8 10^3/uL (4.0-10.0)
[2021-12-22 17:51] LABS: ALBUMIN 4.2 GM/DL (3.2-5.2); ALT/SGPT 55 U/L (12-78); BILIRUBIN,TOTAL 0.7 MG/DL (0.2-1.0); BLOOD UREA NITROGEN 16 MG/DL (7-18); CALCIUM LEVEL 9.7 MG/DL (8.5-10.1); CARBON DIOXIDE LEVEL 27 MEQ/L (21-32); CHLORIDE LEVEL 106 MEQ/L (98-107); FERRITIN 120 NG/ML (26-388); GLOMERULAR FILTRATION RATE > 60.0 (>56); GLUCOSE, FASTING 71 MG/DL (70-100); LITHIUM LEVEL 1.09 MEQ/L (0.60-1.20); POTASSIUM SERUM 4.3 MEQ/L (3.5-5.1); SODIUM LEVEL 137 MEQ/L (136-145); TOTAL PROTEIN 7.7 GM/DL (6.4-8.2)
== END ==
LOC: M PLAIMG 12:51
PROVIDERS: ATTEND Family Medicine
DX: R73.01 Impaired fasting glucose (principal); Z12.5 Encounter for screening for malignant neoplasm of prostate; N18.31 Chronic kidney disease, stage 3a; F31.9 Bipolar disorder, unspecified

== ENCOUNTER 2022-01-25 10:45 | Outpatient (RCR) | payer OTHER | END 2022-02-01 | LOC: M PT 10:45 | PROVIDERS: ATTEND Family Medicine | DX: M17.10 Unilateral primary osteoarthritis, unspecified knee (principal) ==

== ENCOUNTER → 2022-03-23 | Outpatient (CLI) | payer OTHER | LOC: M SLEEP 20:00 | PROVIDERS: ATTEND Nurse Practitioner Family | DX: G47.33 Obstructive sleep apnea (adult) (pediatric) (principal) ==

== ENCOUNTER → 2022-04-10 | Outpatient (CLI) | payer OTHER ==
[2022-04-10 14:56] LABS: BASO % 0.4 % (0.0-1.0); EOS # 0.6 10^3/uL (0.0-0.5); EOS % 6.2 % (0.0-3.0); HEMOGLOBIN 14.1 g/dl (13.5-17.5); LYMPH # 3.4 10^3/uL (1.5-5.0); LYMPH % 37.8 % (24.0-44.0); MEAN CORPUSCULAR HEMOGLOBIN 31.8 pg (27.0-33.0); MEAN CORPUSCULAR HGB CONC 32.8 g/dl (32.0-36.5); MEAN CORPUSCULAR VOLUME 96.8 fl (80.0-96.0); MONO # 0.6 10^3/uL (0.0-0.8); NEUTROPHILS # 4.4 10^3/uL (1.5-8.5); NEUTROPHILS % 48.5 % (36.0-66.0); PLATELET COUNT, AUTOMATED 173 10^3/uL (150-450); RED BLOOD COUNT 4.44 10^6/uL (4.30-6.10); WHITE BLOOD COUNT 9.1 10^3/uL (4.0-10.0)
[2022-04-10 15:18] LABS: BLOOD UREA NITROGEN 16 MG/DL (9-23); CALCIUM LEVEL 9.4 MG/DL (8.5-10.1); CARBON DIOXIDE LEVEL 26 MMOL/L (20-31); CHLORIDE LEVEL 107 MMOL/L (98-107); CREATININE FOR GFR 1.23 MG/DL (0.70-1.30); GLOMERULAR FILTRATION RATE > 60.0 (>56); GLUCOSE, FASTING 92 MG/DL (60-100); LITHIUM LEVEL 0.92 MMOL/L (0.60-1.20); POTASSIUM SERUM 4.5 MMOL/L (3.5-5.1); SODIUM LEVEL 138 MMOL/L (136-145)
== END ==
LOC: M LAB 13:57
PROVIDERS: ATTEND Nurse Practitioner Psychiatric/Mental Health
DX: F31.0 Bipolar disorder, current episode hypomanic (principal)

== ENCOUNTER → 2022-07-06 | Outpatient (REF) | payer OTHER ==
[~2022-07-06] MED LIST changes: +BENZ0.5T2 PO; -BENZ0.5T23 PO
== END ==
LOC: M SFHCPLAZ 17:26
PROVIDERS: ATTEND Family Medicine
DX: R73.01 Impaired fasting glucose (principal); N18.31 Chronic kidney disease, stage 3a; C84.A0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, unspecified, unspecified site; E55.9 Vitamin D deficiency, unspecified; E03.9 Hypothyroidism, unspecified; E78.2 Mixed hyperlipidemia; F31.9 Bipolar disorder, unspecified

== ENCOUNTER 2022-08-17 15:49 | Inpatient (IN) | payer MEDICAID, OTHER ==
[~2022-08-17] VITALS: Ht 172.7 cm; Wt 110.0 kg
[~2022-08-17 15:49] MED LIST changes: +NICOTINE 14 MG/24 HR TRANSDERMAL TD SCH
[2022-08-17 17:12] LABS: HEMATOCRIT 44.1 % (42.0-52.0); HEMOGLOBIN 14.9 g/dl (13.5-17.5); MEAN CORPUSCULAR HGB CONC 33.8 g/dl (32.0-36.5); MEAN CORPUSCULAR VOLUME 94.8 fl (80.0-96.0); PLATELET COUNT, AUTOMATED 194 10^3/uL (150-450); RED BLOOD COUNT 4.65 10^6/uL (4.30-6.10); WHITE BLOOD COUNT 11.5 10^3/uL (4.0-10.0)
[2022-08-17 17:20] LABS: AMPHETAMINES LEVEL URINE NEGATIVE (NEGATIVE); BARBITURATES URINE NEGATIVE (NEGATIVE); BENZODIAZEPINES URINE NEGATIVE (NEGATIVE); CANNABINOIDS URINE NEGATIVE (NEGATIVE); COCAINE METABOLITE URINE NEGATIVE (NEGATIVE); METHADONE URINE NEGATIVE (NEGATIVE); OPIATES URINE NEGATIVE (NEGATIVE); PHENCYCLIDINE URINE NEGATIVE (NEGATIVE)
[2022-08-17 17:23] LABS: ETHYL ALCOHOL (ETHANOL) < 0.003 % (0.000-0.010)
[2022-08-17 17:24] LABS: ACETAMINOPHEN LEVEL < 2.0 UG/ML (10.0-20.0); SALICYLATE LEVEL < 3.0 MG/DL (<30)
[2022-08-17 17:25] LABS: ALKALINE PHOSPHATASE 101 U/L (46-116); ALT/SGPT 49 U/L (7.0-40); AST/SGOT 26 U/L (<34); BILIRUBIN,DIRECT 0.2 MG/DL (<0.4); BILIRUBIN,TOTAL 0.6 MG/DL (0.3-1.2); BLOOD UREA NITROGEN 15 MG/DL (9-23); CARBON DIOXIDE LEVEL 24 MMOL/L (20-31); CHLORIDE LEVEL 107 MMOL/L (98-107); CREATININE FOR GFR 1.17 MG/DL (0.70-1.30); GLOMERULAR FILTRATION RATE > 60.0 (>56); GLUCOSE, FASTING 79 MG/DL (60-100); POTASSIUM SERUM 4.3 MMOL/L (3.5-5.1); SODIUM LEVEL 136 MMOL/L (136-145); TOTAL PROTEIN 7.2 G/DL (5.7-8.2)
[2022-08-17 17:27] LABS: THYROID STIMULATING HORMONE 1.799 uIU/ML (0.55-4.78)
[2022-08-17] MEDS ORDERED: OLANZapine ORAL DISINTEGRATING TAB 5MG PO PRN (18:15)
[2022-08-17] MEDS ORDERED: MOM 30ML SUSPENSION UDC PO PRN (18:15)
[2022-08-17] MEDS ORDERED: MAALOX 30 ML SUSP *UDC PO PRN (18:15)
[2022-08-17] MEDS ORDERED: diphenhydrAMINE 25MG CAP PO PRN (18:15)
[2022-08-17] MEDS ORDERED: FLUO20CA22 PO (18:51)
[2022-08-17] MEDS ORDERED: DICL1GEL3 TOP (18:53)
[2022-08-17] MEDS ORDERED: OLAN1TAB16 PO (18:57)
[2022-08-17] MEDS ORDERED: METF-838 PO (18:59)
[2022-08-17] MEDS ORDERED: HOME MED LIST COMPLETE! XX SCH (19:05)
[2022-08-17] MEDS ORDERED: PROPRANOLOL 10 MG TAB PO SCH (21:00)
[2022-08-17] MEDS ORDERED: traZODone 25MG PER 1/2 TABLET PO SCH (21:00)
[2022-08-17] MEDS ORDERED: OLANZapine 2.5MG TABLET PO ONE (21:00)
[2022-08-17] MEDS: traZODone 50 MG TAB PO PRN (22:01)
[2022-08-17 22:16] VITALS: BP 155/89; TEMP 97; O2SAT 97
[2022-08-18] MEDS ORDERED: LEVOTHYROXINE 100MCG TABLET (0.1MG) PO SCH (06:00)
[2022-08-18 06:23] VITALS: BP 120/79; TEMP 96.7; O2SAT 97
[2022-08-18] MEDS: LEVOTHYROXINE 100MCG TABLET (0.1MG) PO SCH (08:57)
[2022-08-18] MEDS ORDERED: FLUoxetine 10 MG CAP PO SCH (09:00)
[2022-08-18] MEDS: FINASTERIDE 5MG TAB PO SCH (09:58)
[2022-08-18] MEDS: LOSARTAN 25 MG TAB PO SCH ×2 (09:59→22:07)
[2022-08-18 11:18] VITALS: BP 138/88
[2022-08-18] MEDS: FLUoxetine 10 MG CAP PO SCH (11:20)
[2022-08-18] MEDS: OLANZapine 5 MG TAB PO SCH ×2 (11:21→22:08)
[2022-08-18] MEDS: LITHIUM CARBONATE 600MG CAP PO SCH ×2 (11:21→22:07)
[2022-08-18] MEDS: FLUoxetine 20MG CAP PO SCH (11:21)
[2022-08-18] MEDS: PROPRANOLOL 10 MG TAB PO SCH ×3 (11:22→22:08)
[2022-08-18] MEDS: LIDOCAINE 5% (LIDODERM) PATCH TD SCH (11:23)
[2022-08-18] MEDS: FLUTICASONE PROP 0.05% NASAL SPRAY 16 GM (FLONASE) SCH (13:31)
[2022-08-18] MEDS: AMANTADINE 100MG TABLET PO SCH ×2 (13:31→17:36)
[2022-08-18] MEDS: AUSTEDO 12 MG PO SCH ×2 (13:37→22:04)
[2022-08-18] MEDS: metFORMIN XR 500MG TAB *GLUCOPHAGE XR PO SCH (17:36)
[2022-08-18 17:50] VITALS: BP 128/82; TEMP 98.5; O2SAT 95
[2022-08-18] MEDS: IBUPROFEN 400MG TAB PO PRN (22:03)
[2022-08-18] MEDS: TAMSULOSIN 0.4 MG CAP PO SCH (22:04)
[2022-08-18] MEDS: traZODone 50 MG TAB PO PRN (22:04)
[2022-08-18] MEDS: QUEtiapine FUMARATE 100 MG TAB PO SCH (22:08)
[2022-08-19] MEDS: LEVOTHYROXINE 100MCG TABLET (0.1MG) PO SCH (05:30)
[2022-08-19 06:20] VITALS: BP 102/68; TEMP 97; O2SAT 97
[2022-08-19] MEDS: AUSTEDO 12 MG PO SCH ×2 (08:31→21:51)
[2022-08-19] MEDS: LITHIUM CARBONATE 600MG CAP PO SCH ×2 (08:36→21:51)
[2022-08-19] MEDS: PROPRANOLOL 10 MG TAB PO SCH ×3 (08:36→21:52)
[2022-08-19] MEDS: FLUoxetine 20MG CAP PO SCH (08:37)
[2022-08-19] MEDS: OLANZapine 5 MG TAB PO SCH ×2 (08:37→21:52)
[2022-08-19] MEDS: FLUoxetine 10 MG CAP PO SCH (08:37)
[2022-08-19] MEDS: FINASTERIDE 5MG TAB PO SCH (08:38)
[2022-08-19] MEDS: AMANTADINE 100MG TABLET PO SCH ×2 (08:38→17:01)
[2022-08-19] MEDS: LOSARTAN 25 MG TAB PO SCH ×2 (08:38→21:54)
[2022-08-19] MEDS: FLUTICASONE PROP 0.05% NASAL SPRAY 16 GM (FLONASE) SCH (08:39)
[2022-08-19] MEDS: LIDOCAINE 5% (LIDODERM) PATCH TD SCH (08:42)
[2022-08-19 16:43] VITALS: BP 148/84; TEMP 96.2
[2022-08-19] MEDS: metFORMIN XR 500MG TAB *GLUCOPHAGE XR PO SCH (16:57)
[2022-08-19] MEDS: traZODone 50 MG TAB PO PRN (21:51)
[2022-08-19] MEDS: TAMSULOSIN 0.4 MG CAP PO SCH (21:52)
[2022-08-19] MEDS: ACETAMINOPHEN TAB 650MG DOSE (2X325MG) PO PRN (21:52)
[2022-08-19] MEDS: QUEtiapine FUMARATE 100 MG TAB PO SCH (21:52)
[2022-08-20] MEDS: LEVOTHYROXINE 100MCG TABLET (0.1MG) PO SCH (05:30)
[2022-08-20 06:40] VITALS: BP 123/79; TEMP 98; O2SAT 97
[2022-08-20] MEDS: FLUoxetine 20MG CAP PO SCH (08:27)
[2022-08-20] MEDS: PROPRANOLOL 10 MG TAB PO SCH ×3 (08:28→21:55)
[2022-08-20] MEDS: OLANZapine 5 MG TAB PO SCH ×2 (08:28→21:51)
[2022-08-20] MEDS: FINASTERIDE 5MG TAB PO SCH (08:28)
[2022-08-20] MEDS: LOSARTAN 25 MG TAB PO SCH ×2 (08:28→21:51)
[2022-08-20] MEDS: FLUTICASONE PROP 0.05% NASAL SPRAY 16 GM (FLONASE) SCH (08:29)
[2022-08-20] MEDS: AMANTADINE 100MG TABLET PO SCH ×2 (08:29→17:17)
[2022-08-20] MEDS: LITHIUM CARBONATE 600MG CAP PO SCH ×2 (08:29→21:51)
[2022-08-20] MEDS: AUSTEDO 12 MG PO SCH ×2 (08:30→21:51)
[2022-08-20] MEDS: LIDOCAINE 5% (LIDODERM) PATCH TD SCH (08:32)
[2022-08-20] MEDS: FLUoxetine 10 MG CAP PO SCH (08:34)
[2022-08-20] MEDS: IBUPROFEN 400MG TAB PO PRN (08:59)
[2022-08-20] MEDS: metFORMIN XR 500MG TAB *GLUCOPHAGE XR PO SCH (17:17)
[2022-08-20 18:00] VITALS: BP 140/88; TEMP 97.8
[2022-08-20] MEDS: TAMSULOSIN 0.4 MG CAP PO SCH (21:51)
[2022-08-20] MEDS: traZODone 50 MG TAB PO PRN (21:51)
[2022-08-20] MEDS: QUEtiapine FUMARATE 100 MG TAB PO SCH (21:51)
[2022-08-20] MEDS: ACETAMINOPHEN TAB 650MG DOSE (2X325MG) PO PRN (21:55)
[2022-08-21] MEDS: LEVOTHYROXINE 100MCG TABLET (0.1MG) PO SCH (05:36)
[2022-08-21 06:39] VITALS: BP 117/67; TEMP 97.1; O2SAT 95
[2022-08-21 08:11] VITALS: BP 135/82
[2022-08-21] MEDS: AMANTADINE 100MG TABLET PO SCH ×2 (08:14→18:01)
[2022-08-21] MEDS: FINASTERIDE 5MG TAB PO SCH (08:14)
[2022-08-21] MEDS: AUSTEDO 12 MG PO SCH ×2 (08:14→21:59)
[2022-08-21] MEDS: FLUTICASONE PROP 0.05% NASAL SPRAY 16 GM (FLONASE) SCH (08:14)
[2022-08-21] MEDS: LOSARTAN 25 MG TAB PO SCH ×2 (08:15→22:00)
[2022-08-21] MEDS: OLANZapine 5 MG TAB PO SCH ×2 (08:17→22:00)
[2022-08-21] MEDS: FLUoxetine 20MG CAP PO SCH (08:17)
[2022-08-21] MEDS: LITHIUM CARBONATE 600MG CAP PO SCH ×2 (08:17→22:00)
[2022-08-21] MEDS: FLUoxetine 10 MG CAP PO SCH (08:17)
[2022-08-21] MEDS: PROPRANOLOL 10 MG TAB PO SCH ×3 (08:17→22:01)
[2022-08-21] MEDS: LIDOCAINE 5% (LIDODERM) PATCH TD SCH (08:18)
[2022-08-21 15:35] VITALS: BP 148/86; TEMP 97.6
[2022-08-21 18:00] VITALS: BP 138/82; TEMP 97.8; O2SAT 98
[2022-08-21] MEDS: metFORMIN XR 500MG TAB *GLUCOPHAGE XR PO SCH (18:01)
[2022-08-21] MEDS: QUEtiapine FUMARATE 100 MG TAB PO SCH (22:00)
[2022-08-21] MEDS: TAMSULOSIN 0.4 MG CAP PO SCH (22:00)
[2022-08-21] MEDS: ACETAMINOPHEN TAB 650MG DOSE (2X325MG) PO PRN (22:06)
[2022-08-22] MEDS: LEVOTHYROXINE 100MCG TABLET (0.1MG) PO SCH (06:06)
[2022-08-22 06:43] VITALS: BP 111/65; TEMP 97; O2SAT 100
[2022-08-22] MEDS: LOSARTAN 25 MG TAB PO SCH ×2 (08:56→21:33)
[2022-08-22] MEDS: PROPRANOLOL 10 MG TAB PO SCH ×3 (08:57→21:34)
[2022-08-22] MEDS: LITHIUM CARBONATE 600MG CAP PO SCH ×2 (08:58→21:33)
[2022-08-22] MEDS: AMANTADINE 100MG TABLET PO SCH ×2 (08:58→17:38)
[2022-08-22] MEDS: AUSTEDO 12 MG PO SCH ×2 (08:58→21:34)
[2022-08-22] MEDS: FINASTERIDE 5MG TAB PO SCH (08:58)
[2022-08-22] MEDS: FLUoxetine 20MG CAP PO SCH (08:58)
[2022-08-22] MEDS: FLUoxetine 10 MG CAP PO SCH (08:58)
[2022-08-22] MEDS: LIDOCAINE 5% (LIDODERM) PATCH TD SCH (08:59)
[2022-08-22] MEDS: FLUTICASONE PROP 0.05% NASAL SPRAY 16 GM (FLONASE) SCH (08:59)
[2022-08-22] MEDS: OLANZapine 5 MG TAB PO SCH ×2 (08:59→21:33)
[2022-08-22] MEDS: IBUPROFEN 400MG TAB PO PRN ×2 (09:31→21:53)
[2022-08-22 16:37] VITALS: BP 136/90; TEMP 98.1; O2SAT 100
[2022-08-22] MEDS: metFORMIN XR 500MG TAB *GLUCOPHAGE XR PO SCH (17:38)
[2022-08-22] MEDS: QUEtiapine FUMARATE 100 MG TAB PO SCH (21:33)
[2022-08-22] MEDS: TAMSULOSIN 0.4 MG CAP PO SCH (21:33)
[2022-08-23] MEDS: LEVOTHYROXINE 100MCG TABLET (0.1MG) PO SCH (06:35)
[2022-08-23 06:39] VITALS: BP 108/75; TEMP 97.3; O2SAT 98
[2022-08-23] MEDS: LIDOCAINE 5% (LIDODERM) PATCH TD SCH (08:21)
[2022-08-23] MEDS: IBUPROFEN 400MG TAB PO PRN (08:21)
[2022-08-23] MEDS: PROPRANOLOL 10 MG TAB PO SCH ×3 (08:21→22:09)
[2022-08-23] MEDS: FINASTERIDE 5MG TAB PO SCH (08:22)
[2022-08-23] MEDS: FLUoxetine 20MG CAP PO SCH (08:22)
[2022-08-23] MEDS: LITHIUM CARBONATE 600MG CAP PO SCH ×2 (08:22→22:10)
[2022-08-23] MEDS: OLANZapine 5 MG TAB PO SCH ×2 (08:22→22:10)
[2022-08-23] MEDS: AMANTADINE 100MG TABLET PO SCH ×2 (08:22→17:34)
[2022-08-23] MEDS: AUSTEDO 12 MG PO SCH ×2 (08:22→22:07)
[2022-08-23] MEDS: FLUoxetine 10 MG CAP PO SCH (08:22)
[2022-08-23] MEDS: LOSARTAN 25 MG TAB PO SCH ×2 (08:22→22:10)
[2022-08-23] MEDS: FLUTICASONE PROP 0.05% NASAL SPRAY 16 GM (FLONASE) SCH (08:23)
[2022-08-23 16:41] VITALS: BP 131/84; TEMP 97.7; O2SAT 100
[2022-08-23] MEDS: metFORMIN XR 500MG TAB *GLUCOPHAGE XR PO SCH (17:34)
[2022-08-23] MEDS: TAMSULOSIN 0.4 MG CAP PO SCH (22:10)
[2022-08-23] MEDS: QUEtiapine FUMARATE 100 MG TAB PO SCH (22:10)
[2022-08-24] MEDS: LEVOTHYROXINE 100MCG TABLET (0.1MG) PO SCH (05:37)
[2022-08-24 06:20] VITALS: BP 135/81; TEMP 98.6; O2SAT 98
[2022-08-24] MEDS: FLUTICASONE PROP 0.05% NASAL SPRAY 16 GM (FLONASE) SCH (08:44)
[2022-08-24] MEDS: FLUoxetine 10 MG CAP PO SCH (08:46)
[2022-08-24] MEDS: FLUoxetine 20MG CAP PO SCH (08:46)
[2022-08-24] MEDS: AMANTADINE 100MG TABLET PO SCH (08:46)
[2022-08-24] MEDS: FINASTERIDE 5MG TAB PO SCH (08:46)
[2022-08-24 08:47] VITALS: BP 131/80
[2022-08-24] MEDS: LITHIUM CARBONATE 600MG CAP PO SCH (08:47)
[2022-08-24] MEDS: OLANZapine 5 MG TAB PO SCH (08:47)
[2022-08-24 08:48] VITALS: BP 131/80
[2022-08-24] MEDS: PROPRANOLOL 10 MG TAB PO SCH (08:48)
[2022-08-24] MEDS: LOSARTAN 25 MG TAB PO SCH (08:48)
[2022-08-24] MEDS: AUSTEDO 12 MG PO SCH (08:49)
[2022-08-24] MEDS: LIDOCAINE 5% (LIDODERM) PATCH TD SCH (08:49)
[2022-08-24] MEDS ORDERED: LITH300C PO (08:56)
[2022-08-24] MEDS ORDERED: TRAZ-252 PO (08:56)
[2022-08-24] MEDS ORDERED: PROP10TA56 PO (08:56)
[2022-08-24] MEDS ORDERED: HYDR50TA70 PO (08:56)
[2022-08-24] MEDS ORDERED: QUET100T2 PO (08:56)
[2022-08-24] MEDS ORDERED: FLUO10CA18 PO (08:56)
[2022-08-24] MEDS ORDERED: FLUO20CA22 PO (08:56)
[2022-08-24] MEDS ORDERED: OLAN1TAB16 PO (08:56)
[2022-08-24] MEDS ORDERED: MIRA3350 PO (14:24)
[2022-08-24] MEDS ORDERED: TOPA1TAB PO (14:24)
== END 2022-08-24 12:25 | disposition home or self-care (01) | DRG 750 ==
LOC: M ED 15:49 → M ED INP 18:34 → M PSY 21:30
PROVIDERS: ADMIT Student in an Organized Health Care Education/Training Program; ATTEND Student in an Organized Health Care Education/Training Program
DX: F25.0 Schizoaffective disorder, bipolar type (principal); D69.6 Thrombocytopenia, unspecified; E88.81 Metabolic syndrome and other insulin resistance; I49.5 Sick sinus syndrome; F71 Moderate intellectual disabilities; N18.30 Chronic kidney disease, stage 3 unspecified; R45.851 Suicidal ideations; Z87.820 Personal history of traumatic brain injury; E66.9 Obesity, unspecified; G47.33 Obstructive sleep apnea (adult) (pediatric); N40.1 Benign prostatic hyperplasia with lower urinary tract symptoms; E03.9 Hypothyroidism, unspecified; I10 Essential (primary) hypertension; N52.9 Male erectile dysfunction, unspecified; R39.9 Unspecified symptoms and signs involving the genitourinary system; G24.01 Drug induced subacute dyskinesia; M47.812 Spondylosis without myelopathy or radiculopathy, cervical region; R07.81 Pleurodynia; Z95.0 Presence of cardiac pacemaker; Z90.49 Acquired absence of other specified parts of digestive tract; Z87.81 Personal history of (healed) traumatic fracture; Z79.890 Hormone replacement therapy; Z79.899 Other long term (current) drug therapy; Z88.8 Allergy status to other drugs, medicaments and biological substances; Z91.018 Allergy to other foods; Z68.36 Body mass index [BMI] 36.0-36.9, adult

== ENCOUNTER 2022-10-07 19:12 | Inpatient (IN) | payer MEDICAID, OTHER ==
[~2022-10-07] VITALS: Ht 172.7 cm; Wt 110.6 kg
[~2022-10-07 19:12] MED LIST changes: +DICL100G10 TOP; +FINA-48 PO; +METF-838 PO; -NICOTINE 14 MG/24 HR TRANSDERMAL TD SCH; +OLAN1TAB16 PO; -PROS5TAB PO; -ROPI1TAB3 PO; +ROPI1TAB73 PO; +TOPA1TAB PO
[2022-10-07 19:52] LABS: BASO # 0.1 10^3/uL (0.0-0.2); BASO % 0.7 % (0.0-1.0); EOS # 0.6 10^3/uL (0.0-0.5); EOS % 6.8 % (0.0-3.0); HEMATOCRIT 39.3 % (42.0-52.0); HEMOGLOBIN 13.5 g/dl (13.5-17.5); LYMPH % 36.3 % (24.0-44.0); MEAN CORPUSCULAR HEMOGLOBIN 32.1 pg (27.0-33.0); MEAN CORPUSCULAR HGB CONC 34.4 g/dl (32.0-36.5); MEAN CORPUSCULAR VOLUME 93.3 fl (80.0-96.0); MONO # 0.7 10^3/uL (0.0-0.8); MONO % 8.4 % (2.0-8.0); NEUTROPHILS % 47.6 % (36.0-66.0); PLATELET COUNT, AUTOMATED 196 10^3/uL (150-450); RED BLOOD COUNT 4.21 10^6/uL (4.30-6.10); WHITE BLOOD COUNT 8.3 10^3/uL (4.0-10.0)
[2022-10-07] MEDS ORDERED: ACETAMINOPHEN TAB 650MG DOSE (2X325MG) PO ONE (19:55)
[2022-10-07 20:04] LABS: INR 1.03; PROTHROMBIN TIME 13.7 SECONDS (12.5-14.5)
[2022-10-07 20:05] LABS: PARTIAL THROMBOPLASTIN TIME 28.3 SECONDS (24.8-34.2)
[2022-10-07 20:07] LABS: D-DIMER QUANT 500.78 ng/ml (<500)
[2022-10-07 20:17] LABS: CK-MB VALUE MASS < 1.0 NG/ML (<3.6)
[2022-10-07 20:21] LABS: THYROID STIMULATING HORMONE 1.403 uIU/ML (0.55-4.78)
[2022-10-07 20:24] LABS: RSV AMPLIFICATION NEGATIVE (NEGATIVE)
[2022-10-07 21:23] LABS: BLOOD UREA NITROGEN 16 MG/DL (9-23); CALCIUM LEVEL 8.8 MG/DL (8.5-10.1); CARBON DIOXIDE LEVEL 22 MMOL/L (20-31); CHLORIDE LEVEL 110 MMOL/L (98-107); CREATININE FOR GFR 1.08 MG/DL (0.70-1.30); GLOMERULAR FILTRATION RATE > 60.0 (>56); GLUCOSE, FASTING 80 MG/DL (60-100); POTASSIUM SERUM 4.4 MMOL/L (3.5-5.1); SODIUM LEVEL 140 MMOL/L (136-145)
[2022-10-07 21:24] LABS: CPK CREATINE PHOSPHOKINASE 55 U/L (46-171); MB/CK RELATIVE INDEX 1.81 (< OR =4)
[2022-10-07 22:16] LABS: BARBITURATES URINE NEGATIVE (NEGATIVE); COCAINE METABOLITE URINE NEGATIVE (NEGATIVE)
[2022-10-07 22:17] LABS: AMPHETAMINES LEVEL URINE NEGATIVE (NEGATIVE); BENZODIAZEPINES URINE NEGATIVE (NEGATIVE); CANNABINOIDS URINE NEGATIVE (NEGATIVE); METHADONE URINE NEGATIVE (NEGATIVE); OPIATES URINE NEGATIVE (NEGATIVE); PHENCYCLIDINE URINE NEGATIVE (NEGATIVE)
[2022-10-07] MEDS ORDERED: ISOVUE-370 76% 100ML VIAL As Ordered ONE (23:40)
[2022-10-08] MEDS ORDERED: LOSARTAN 50MG TABLET PO ONE (02:25)
[2022-10-08] MEDS ORDERED: LITH300C PO (05:03)
[2022-10-08] MEDS ORDERED: PROP10TA56 PO (05:03)
[2022-10-08] MEDS ORDERED: TOPI25TA10 PO (05:03)
[2022-10-08] MEDS ORDERED: TRAZ-252 PO (05:03)
[2022-10-08] MEDS ORDERED: QUET100T2 PO (05:03)
[2022-10-08] MEDS ORDERED: FLUO40CA PO (05:03)
[2022-10-08] MEDS ORDERED: OLAN1TAB70 PO (05:04)
[2022-10-08] MEDS ORDERED: HOME MED LIST COMPLETE! XX SCH (05:10)
[2022-10-08] MEDS: LEVOTHYROXINE 100MCG TABLET (0.1MG) PO SCH (06:00)
[2022-10-08] MEDS: TOPIRAMATE (TopAMAX) 25 MG TAB PO SCH ×2 (09:00→20:19)
[2022-10-08] MEDS ORDERED: AMANTADINE 100MG TABLET PO SCH (09:00)
[2022-10-08] MEDS: LOSARTAN 25 MG TAB PO SCH ×2 (09:00→20:19)
[2022-10-08] MEDS: FLUoxetine 20MG CAP PO SCH (14:28)
[2022-10-08] MEDS: LITHIUM CARBONATE 300 MG CAP PO SCH ×2 (14:28→20:19)
[2022-10-08] MEDS: PROPRANOLOL 10 MG TAB PO SCH ×2 (14:29→20:20)
[2022-10-08] MEDS ORDERED: MOM 30ML SUSPENSION UDC PO PRN (16:40)
[2022-10-08] MEDS ORDERED: MAALOX 30 ML SUSP *UDC PO PRN (16:40)
[2022-10-08] MEDS ORDERED: diphenhydrAMINE 25MG CAP PO PRN (16:40)
[2022-10-08] MEDS ORDERED: ONDANSETRON 4MG ORAL DISINTEGRATING TAB PO PRN (17:55)
[2022-10-08 18:15] VITALS: BP 132/84; TEMP 97.9; O2SAT 99
[2022-10-08] MEDS: IBUPROFEN 400MG TAB PO PRN (20:17)
[2022-10-08] MEDS: TAMSULOSIN 0.4 MG CAP PO SCH (20:18)
[2022-10-08] MEDS: AMANTADINE 100MG TABLET PO SCH (20:18)
[2022-10-08] MEDS: traZODone 25MG PER 1/2 TABLET PO SCH (20:18)
[2022-10-08] MEDS: metFORMIN XR 500MG TAB *GLUCOPHAGE XR PO SCH (20:18)
[2022-10-08] MEDS: FINASTERIDE 5MG TAB PO SCH (20:19)
[2022-10-08] MEDS: OLANZapine 10 MG TAB PO SCH (20:19)
[2022-10-08] MEDS: QUEtiapine FUMARATE 100 MG TAB PO SCH (20:19)
[2022-10-09] MEDS: LEVOTHYROXINE 100MCG TABLET (0.1MG) PO SCH (05:33)
[2022-10-09 06:27] VITALS: BP 139/90; TEMP 97; O2SAT 98
[2022-10-09] MEDS: LOSARTAN 25 MG TAB PO SCH ×2 (09:16→22:34)
[2022-10-09] MEDS: FLUTICASONE PROP 0.05% NASAL SPRAY 16 GM (FLONASE) SCH (09:17)
[2022-10-09] MEDS: TOPIRAMATE (TopAMAX) 25 MG TAB PO SCH ×2 (09:17→22:12)
[2022-10-09] MEDS: FLUoxetine 20MG CAP PO SCH (09:18)
[2022-10-09] MEDS: LITHIUM CARBONATE 300 MG CAP PO SCH ×2 (09:18→22:12)
[2022-10-09] MEDS: FINASTERIDE 5MG TAB PO SCH (09:19)
[2022-10-09] MEDS: PROPRANOLOL 10 MG TAB PO SCH ×3 (09:19→22:13)
[2022-10-09] MEDS: ACETAMINOPHEN TAB 650MG DOSE (2X325MG) PO PRN (09:20)
[2022-10-09] MEDS: AMANTADINE 100MG TABLET PO SCH ×2 (12:01→18:29)
[2022-10-09] MEDS: AUSTEDO 12 MG PO SCH ×2 (14:15→22:13)
[2022-10-09] MEDS: metFORMIN XR 500MG TAB *GLUCOPHAGE XR PO SCH (17:32)
[2022-10-09 18:00] VITALS: BP 126/76; TEMP 97.6; O2SAT 100
[2022-10-09] MEDS: traZODone 25MG PER 1/2 TABLET PO SCH (22:12)
[2022-10-09] MEDS: TAMSULOSIN 0.4 MG CAP PO SCH (22:12)
[2022-10-09] MEDS: QUEtiapine FUMARATE 100 MG TAB PO SCH (22:13)
[2022-10-09] MEDS: OLANZapine 10 MG TAB PO SCH (22:13)
[2022-10-09] MEDS: IBUPROFEN 400MG TAB PO PRN (22:19)
[2022-10-10] MEDS: LEVOTHYROXINE 100MCG TABLET (0.1MG) PO SCH (06:07)
[2022-10-10 06:21] VITALS: BP 135/88; TEMP 96.7; O2SAT 98
[2022-10-10] MEDS: FINASTERIDE 5MG TAB PO SCH (09:00)
[2022-10-10] MEDS: LOSARTAN 25 MG TAB PO SCH ×2 (09:00→21:00)
[2022-10-10] MEDS: FLUTICASONE PROP 0.05% NASAL SPRAY 16 GM (FLONASE) SCH (09:01)
[2022-10-10] MEDS: FLUoxetine 20MG CAP PO SCH (09:05)
[2022-10-10] MEDS: AUSTEDO 12 MG PO SCH ×3 (09:05→23:18)
[2022-10-10] MEDS: AMANTADINE 100MG TABLET PO SCH ×2 (09:05→18:17)
[2022-10-10] MEDS: TOPIRAMATE (TopAMAX) 25 MG TAB PO SCH ×2 (09:06→21:00)
[2022-10-10] MEDS: LITHIUM CARBONATE 300 MG CAP PO SCH ×3 (09:06→23:14)
[2022-10-10] MEDS: PROPRANOLOL 10 MG TAB PO SCH ×4 (09:07→23:17)
[2022-10-10] MEDS: ACETAMINOPHEN TAB 650MG DOSE (2X325MG) PO PRN (09:10)
[2022-10-10 12:43] VITALS: BP 132/87; TEMP 97.8
[2022-10-10] MEDS: FLUoxetine 10 MG CAP PO SCH (13:46)
[2022-10-10] MEDS: metFORMIN XR 500MG TAB *GLUCOPHAGE XR PO SCH (17:02)
[2022-10-10 17:52] VITALS: BP 126/81; TEMP 97.6; O2SAT 100
[2022-10-10] MEDS: OLANZapine 10 MG TAB PO SCH (21:00)
[2022-10-10] MEDS: QUEtiapine FUMARATE 100 MG TAB PO SCH (21:00)
[2022-10-10] MEDS: TAMSULOSIN 0.4 MG CAP PO SCH (21:00)
[2022-10-10] MEDS: traZODone 25MG PER 1/2 TABLET PO SCH (21:00)
[2022-10-10] MEDS: IBUPROFEN 400MG TAB PO PRN (23:14)
[2022-10-11 06:09] VITALS: BP 146/84; TEMP 96.9; O2SAT 97
[2022-10-11] MEDS: LEVOTHYROXINE 100MCG TABLET (0.1MG) PO SCH (06:10)
[2022-10-11] MEDS: FLUTICASONE PROP 0.05% NASAL SPRAY 16 GM (FLONASE) SCH (08:36)
[2022-10-11] MEDS: AUSTEDO 12 MG PO SCH ×2 (08:37→21:59)
[2022-10-11] MEDS: FLUoxetine 20MG CAP PO SCH (08:38)
[2022-10-11] MEDS: FLUoxetine 10 MG CAP PO SCH (08:38)
[2022-10-11] MEDS: LITHIUM CARBONATE 300 MG CAP PO SCH ×2 (08:39→21:57)
[2022-10-11] MEDS: PROPRANOLOL 10 MG TAB PO SCH ×3 (08:39→21:58)
[2022-10-11] MEDS: AMANTADINE 100MG TABLET PO SCH ×2 (08:39→18:19)
[2022-10-11] MEDS: TOPIRAMATE (TopAMAX) 25 MG TAB PO SCH ×2 (08:39→21:57)
[2022-10-11] MEDS ORDERED: FLUoxetine 20MG CAP PO SCH (09:00)
[2022-10-11] MEDS: FINASTERIDE 5MG TAB PO SCH (09:13)
[2022-10-11] MEDS: LOSARTAN 25 MG TAB PO SCH ×2 (09:14→22:00)
[2022-10-11 17:19] VITALS: BP 133/89; TEMP 96.8; O2SAT 98
[2022-10-11] MEDS: metFORMIN XR 500MG TAB *GLUCOPHAGE XR PO SCH (18:19)
[2022-10-11 21:55] VITALS: BP 138/98
[2022-10-11] MEDS: OLANZapine 10 MG TAB PO SCH (21:57)
[2022-10-11] MEDS: QUEtiapine FUMARATE 100 MG TAB PO SCH (21:57)
[2022-10-11] MEDS: TAMSULOSIN 0.4 MG CAP PO SCH (21:58)
[2022-10-11] MEDS: traZODone 25MG PER 1/2 TABLET PO SCH (22:00)
[2022-10-12] MEDS: LEVOTHYROXINE 100MCG TABLET (0.1MG) PO SCH (06:07)
[2022-10-12 06:37] VITALS: BP 141/88; TEMP 96.7; O2SAT 95
[2022-10-12] MEDS: LITHIUM CARBONATE 300 MG CAP PO SCH (08:20)
[2022-10-12] MEDS: FLUoxetine 20MG CAP PO SCH (08:21)
[2022-10-12] MEDS: TOPIRAMATE (TopAMAX) 25 MG TAB PO SCH ×2 (08:21→21:50)
[2022-10-12] MEDS: LOSARTAN 25 MG TAB PO SCH ×2 (08:22→21:50)
[2022-10-12] MEDS: PROPRANOLOL 10 MG TAB PO SCH ×2 (08:22→21:51)
[2022-10-12] MEDS: FINASTERIDE 5MG TAB PO SCH (08:22)
[2022-10-12] MEDS: AMANTADINE 100MG TABLET PO SCH (08:23)
[2022-10-12] MEDS: FLUoxetine 10 MG CAP PO SCH (08:23)
[2022-10-12] MEDS: FLUTICASONE PROP 0.05% NASAL SPRAY 16 GM (FLONASE) SCH (08:23)
[2022-10-12] MEDS: AUSTEDO 12 MG PO SCH ×2 (08:23→21:49)
[2022-10-12] MEDS ORDERED: diphenhydrAMINE 25MG CAP PO PRN (14:20)
[2022-10-12] MEDS ORDERED: ONDANSETRON 4MG ORAL DISINTEGRATING TAB PO PRN (14:20)
[2022-10-12] MEDS ORDERED: PROPRANOLOL 10 MG TAB PO SCH ×2 (16:00→21:00)
[2022-10-12 17:14] VITALS: BP 134/91; TEMP 96.7; O2SAT 100
[2022-10-12] MEDS ORDERED: metFORMIN XR 500MG TAB *GLUCOPHAGE XR PO SCH (18:00)
[2022-10-12] MEDS ORDERED: AMANTADINE 100MG TABLET PO SCH (18:00)
[2022-10-12] MEDS ORDERED: traZODone 25MG PER 1/2 TABLET PO SCH ×2 (21:00)
[2022-10-12] MEDS ORDERED: LITHIUM CARBONATE 600MG CAP PO SCH (21:00)
[2022-10-12] MEDS ORDERED: QUEtiapine FUMARATE 100 MG TAB PO SCH ×2 (21:00)
[2022-10-12] MEDS ORDERED: ENTER DRUG NAME HERE (PATIENT'S OWN MED) PO SCH (21:00)
[2022-10-12] MEDS ORDERED: OLANZapine 10 MG TAB PO SCH ×2 (21:00)
[2022-10-12] MEDS ORDERED: TOPIRAMATE (TopAMAX) 25 MG TAB PO SCH (21:00)
[2022-10-12] MEDS ORDERED: TAMSULOSIN 0.4 MG CAP PO SCH ×2 (21:00)
[2022-10-12] MEDS: LITHIUM CARBONATE 600MG CAP PO SCH (21:49)
[2022-10-12] MEDS: IBUPROFEN 400MG TAB PO PRN (22:04)
[2022-10-13] MEDS ORDERED: LEVOTHYROXINE 100MCG TABLET (0.1MG) PO SCH ×2 (06:00)
[2022-10-13 06:38] VITALS: BP 126/80; TEMP 97.3; O2SAT 98
[2022-10-13] MEDS ORDERED: FLUO10CA18 PO (08:06)
[2022-10-13] MEDS ORDERED: PROP10TA56 PO (08:06)
[2022-10-13] MEDS ORDERED: FLUoxetine 10 MG CAP PO SCH ×2 (09:00)
[2022-10-13] MEDS ORDERED: AMANTADINE 100MG TABLET PO SCH (09:00)
[2022-10-13] MEDS ORDERED: FLUTICASONE PROP 0.05% NASAL SPRAY 16 GM (FLONASE) NARES SCH (09:00)
[2022-10-13] MEDS ORDERED: FLUoxetine 20MG CAP PO SCH (09:00)
[2022-10-13] MEDS ORDERED: FINASTERIDE 5MG TAB PO SCH ×2 (09:00)
[2022-10-13] MEDS: AUSTEDO 12 MG PO SCH (10:01)
[2022-10-13] MEDS: TOPIRAMATE (TopAMAX) 25 MG TAB PO SCH (10:03)
[2022-10-13] MEDS: LITHIUM CARBONATE 600MG CAP PO SCH (10:03)
[2022-10-13] MEDS: PROPRANOLOL 10 MG TAB PO SCH (10:04)
[2022-10-13 10:05] VITALS: BP 126/80
[2022-10-13] MEDS: LOSARTAN 25 MG TAB PO SCH (10:05)
== END 2022-10-13 11:11 | disposition home or self-care (01) | DRG 750 ==
LOC: M ED 19:12 → M ED INP 10-08 16:40 → M PSY 10-08 17:25
PROVIDERS: ADMIT Psychiatry & Neurology Psychiatry; ATTEND Student in an Organized Health Care Education/Training Program
DX: F25.0 Schizoaffective disorder, bipolar type (principal); D69.6 Thrombocytopenia, unspecified; I49.5 Sick sinus syndrome; N18.30 Chronic kidney disease, stage 3 unspecified; R45.851 Suicidal ideations; F71 Moderate intellectual disabilities; F41.9 Anxiety disorder, unspecified; Z87.820 Personal history of traumatic brain injury; E66.9 Obesity, unspecified; Z68.39 Body mass index [BMI] 39.0-39.9, adult; G47.33 Obstructive sleep apnea (adult) (pediatric); N40.1 Benign prostatic hyperplasia with lower urinary tract symptoms; N13.9 Obstructive and reflux uropathy, unspecified; E03.9 Hypothyroidism, unspecified; I12.9 Hypertensive chronic kidney disease with stage 1 through stage 4 chronic kidney disease, or unspecified chronic kidney disease; N52.9 Male erectile dysfunction, unspecified; Z95.0 Presence of cardiac pacemaker; M47.812 Spondylosis without myelopathy or radiculopathy, cervical region; Z90.49 Acquired absence of other specified parts of digestive tract; Z87.81 Personal history of (healed) traumatic fracture; Z79.84 Long term (current) use of oral hypoglycemic drugs; Z79.899 Other long term (current) drug therapy; Z88.8 Allergy status to other drugs, medicaments and biological substances; Z91.018 Allergy to other foods

== ENCOUNTER 2022-12-12 01:11 | Observation (INO) | payer OTHER ==
[~2022-12-12] VITALS: Ht 172.7 cm; Wt 102.0 kg
[~2022-12-12 01:11] MED LIST changes: -FLON1SPR; +FLON1SPR NARES; +FLUO40CA PO; +OLAN1TAB70 PO; +TOPI25TA10 PO
[2022-12-12 06:16] LABS: BASO # 0.1 10^3/uL (0.0-0.2); BASO % 0.6 % (0.0-1.0); EOS # 0.6 10^3/uL (0.0-0.5); EOS % 6.2 % (0.0-3.0); HEMATOCRIT 40.7 % (42.0-52.0); HEMOGLOBIN 13.7 g/dl (13.5-17.5); LYMPH # 3.2 10^3/uL (1.5-5.0); LYMPH % 33.3 % (24.0-44.0); MEAN CORPUSCULAR HEMOGLOBIN 32.5 pg (27.0-33.0); MEAN CORPUSCULAR HGB CONC 33.7 g/dl (32.0-36.5); MEAN CORPUSCULAR VOLUME 96.4 fl (80.0-96.0); MONO # 0.9 10^3/uL (0.0-0.8); NEUTROPHILS # 4.8 10^3/uL (1.5-8.5); NEUTROPHILS % 50.6 % (36.0-66.0); PLATELET COUNT, AUTOMATED 185 10^3/uL (150-450); RED BLOOD COUNT 4.22 10^6/uL (4.30-6.10); WHITE BLOOD COUNT 9.5 10^3/uL (4.0-10.0)
[2022-12-12 06:41] LABS: BLOOD UREA NITROGEN 12 MG/DL (9-23); CALCIUM LEVEL 9.7 MG/DL (8.5-10.1); CARBON DIOXIDE LEVEL 25 MMOL/L (20-31); CHLORIDE LEVEL 109 MMOL/L (98-107); CREATININE FOR GFR 1.22 MG/DL (0.70-1.30); GLOMERULAR FILTRATION RATE > 60.0 (>56); GLUCOSE, FASTING 86 MG/DL (60-100); MAGNESIUM LEVEL 2.1 MG/DL (1.8-2.4); SODIUM LEVEL 139 MMOL/L (136-145)
[2022-12-12 06:51] LABS: THYROID STIMULATING HORMONE 4.219 uIU/ML (0.55-4.78)
[2022-12-12] MEDS ORDERED: MAALOX 30 ML SUSP *UDC PO PRN (07:15)
[2022-12-12] MEDS ORDERED: NS 1,000 ML IV ONE (07:15)
[2022-12-12] MEDS ORDERED: MOM 30ML SUSPENSION UDC PO PRN (07:15)
[2022-12-12] MEDS ORDERED: MED REC IN PROGRESS XX SCH (08:00)
[2022-12-12] MEDS: DOCUSATE SODIUM 100MG CAPSULE PO SCH ×2 (08:02→21:00)
[2022-12-12] MEDS: NS 1,000 ML IV SCH ×2 (09:07→17:23)
[2022-12-12 09:14] LABS: LITHIUM LEVEL 1.01 MMOL/L (1.0-1.20)
[2022-12-12] MEDS ORDERED: MED REC CURRENTLY UNOBTAINABLE XX SCH (10:50)
[2022-12-12] MEDS ORDERED: KETO2CR TOP (11:35)
[2022-12-12] MEDS ORDERED: FLUO10CA18 PO (11:35)
[2022-12-12] MEDS ORDERED: DICL100G10 TOP (11:35)
[2022-12-12] MEDS ORDERED: CLOT1CRE71 TOP (11:35)
[2022-12-12] MEDS ORDERED: PROP10TA56 PO (11:35)
[2022-12-12] MEDS ORDERED: NAPR-885 PO (12:57)
[2022-12-12] MEDS ORDERED: ACET1TAB55 PO (12:57)
[2022-12-12] MEDS ORDERED: MIRA3350 PO (12:57)
[2022-12-12] MEDS ORDERED: AMMO12CR7 TOP (12:57)
[2022-12-12] MEDS ORDERED: HOME MED LIST COMPLETE! XX SCH (13:00)
[2022-12-12] MEDS: ENOXAPARIN 40MG/0.4ML SYRINGE (J1650 PER 10MG) SC SCH (13:31)
[2022-12-12 14:59] LABS: HEMOGLOBIN A1c 4.2 % (4.0-6.0)
[2022-12-12] MEDS: FINASTERIDE 5MG TAB PO SCH (15:06)
[2022-12-12] MEDS: LACTIC ACID 12% LOTION 225 GM BTL TOP SCH (15:10)
[2022-12-12] MEDS: FLUTICASONE PROP 0.05% NASAL SPRAY 16 GM (FLONASE) NARES SCH (15:10)
[2022-12-12] MEDS: MIRALAX *UNIT DOSE* 17GM PACKET PO SCH (15:14)
[2022-12-12] MEDS: FLUoxetine 20MG CAP PO SCH (15:31)
[2022-12-12] MEDS: VITAMIN D 1,000 INTERNATIONAL UNITS TABLET PO SCH (15:32)
[2022-12-12] MEDS: TOPIRAMATE (TopAMAX) 25 MG TAB PO SCH ×2 (15:32→22:42)
[2022-12-12] MEDS: LEVOTHYROXINE 100MCG TABLET (0.1MG) PO SCH (15:32)
[2022-12-12] MEDS: FLUoxetine 10 MG CAP PO SCH (15:32)
[2022-12-12 16:23] VITALS: BP 136/87; TEMP 97.1; O2SAT 98
[2022-12-12] MEDS: PROPRANOLOL 10 MG TAB PO SCH (21:00)
[2022-12-12] MEDS ORDERED: TAMSULOSIN 0.4 MG CAP PO SCH (21:00)
[2022-12-12 22:00] VITALS: BP 135/84
[2022-12-12 22:01] VITALS: BP 142/91
[2022-12-12 22:02] VITALS: BP 137/84
[2022-12-12] MEDS: KETOCONAZOLE 2% CREAM TOP SCH (22:39)
[2022-12-12] MEDS: AMANTADINE 100MG TABLET PO SCH (22:40)
[2022-12-12] MEDS: QUEtiapine FUMARATE 100 MG TAB PO SCH (22:40)
[2022-12-12] MEDS: LITHIUM CARBONATE 300 MG CAP PO SCH (22:41)
[2022-12-12] MEDS: LOSARTAN 25 MG TAB PO SCH (22:41)
[2022-12-12] MEDS: traZODone 25MG PER 1/2 TABLET PO SCH (22:42)
[2022-12-13] VITALS (8 sets, daily range): BP systolic 122–162; BP diastolic 70–94; TEMP 96.5–98.5; O2SAT 96–100
[2022-12-13] MEDS: NS 1,000 ML IV SCH (01:26)
[2022-12-13] MEDS: ACETAMINOPHEN TAB 650MG DOSE (2X325MG) PO PRN ×2 (04:41→22:01)
[2022-12-13 04:56] LABS: BASO # 0.1 10^3/uL (0.0-0.2); BASO % 0.6 % (0.0-1.0); EOS # 0.6 10^3/uL (0.0-0.5); EOS % 6.7 % (0.0-3.0); HEMATOCRIT 40.9 % (42.0-52.0); HEMOGLOBIN 13.8 g/dl (13.5-17.5); LYMPH # 2.6 10^3/uL (1.5-5.0); LYMPH % 28.6 % (24.0-44.0); MEAN CORPUSCULAR HEMOGLOBIN 32.6 pg (27.0-33.0); MEAN CORPUSCULAR HGB CONC 33.7 g/dl (32.0-36.5); MEAN CORPUSCULAR VOLUME 96.7 fl (80.0-96.0); MONO # 0.7 10^3/uL (0.0-0.8); MONO % 7.8 % (2.0-8.0); NEUTROPHILS % 56.1 % (36.0-66.0); PLATELET COUNT, AUTOMATED 159 10^3/uL (150-450); RED BLOOD COUNT 4.23 10^6/uL (4.30-6.10)
[2022-12-13 05:22] LABS: BLOOD UREA NITROGEN 12 MG/DL (9-23); CALCIUM LEVEL 8.8 MG/DL (8.5-10.1); CARBON DIOXIDE LEVEL 21 MMOL/L (20-31); CHLORIDE LEVEL 114 MMOL/L (98-107); CREATININE FOR GFR 1.04 MG/DL (0.70-1.30); GLOMERULAR FILTRATION RATE > 60.0 (>56); GLUCOSE, FASTING 89 MG/DL (60-100); MAGNESIUM LEVEL 2.1 MG/DL (1.8-2.4); SODIUM LEVEL 142 MMOL/L (136-145)
[2022-12-13] MEDS: AMANTADINE 100MG TABLET PO SCH ×2 (09:31→21:58)
[2022-12-13] MEDS: FINASTERIDE 5MG TAB PO SCH (09:31)
[2022-12-13] MEDS: TOPIRAMATE (TopAMAX) 25 MG TAB PO SCH ×3 (09:31→21:59)
[2022-12-13] MEDS: LITHIUM CARBONATE 300 MG CAP PO SCH ×2 (09:31→21:59)
[2022-12-13] MEDS: FLUoxetine 20MG CAP PO SCH (09:32)
[2022-12-13] MEDS: VITAMIN D 1,000 INTERNATIONAL UNITS TABLET PO SCH (09:32)
[2022-12-13] MEDS: PROPRANOLOL 10 MG TAB PO SCH (09:32)
[2022-12-13] MEDS: FLUoxetine 10 MG CAP PO SCH (09:32)
[2022-12-13] MEDS: LEVOTHYROXINE 100MCG TABLET (0.1MG) PO SCH (09:32)
[2022-12-13] MEDS: LOSARTAN 25 MG TAB PO SCH (09:32)
[2022-12-13] MEDS: LACTIC ACID 12% LOTION 225 GM BTL TOP SCH (09:33)
[2022-12-13] MEDS: DOCUSATE SODIUM 100MG CAPSULE PO SCH ×2 (09:33→21:00)
[2022-12-13] MEDS: FLUTICASONE PROP 0.05% NASAL SPRAY 16 GM (FLONASE) NARES SCH (09:33)
[2022-12-13] MEDS: MIRALAX *UNIT DOSE* 17GM PACKET PO SCH (09:34)
[2022-12-13] MEDS: KETOCONAZOLE 2% CREAM TOP SCH ×2 (09:34→22:00)
[2022-12-13] MEDS: ENOXAPARIN 40MG/0.4ML SYRINGE (J1650 PER 10MG) SC SCH (09:34)
[2022-12-13] MEDS ORDERED: NS 500 ML IV ONE (13:30)
[2022-12-13] MEDS ORDERED: LOSARTAN 50MG TABLET PO ONE (17:40)
[2022-12-13] MEDS: QUEtiapine FUMARATE 100 MG TAB PO SCH (21:59)
[2022-12-13] MEDS: traZODone 25MG PER 1/2 TABLET PO SCH (21:59)
[2022-12-14 05:01] LABS: BASO # 0.1 10^3/uL (0.0-0.2); BASO % 0.6 % (0.0-1.0); EOS # 0.6 10^3/uL (0.0-0.5); EOS % 7.2 % (0.0-3.0); HEMATOCRIT 39.3 % (42.0-52.0); HEMOGLOBIN 13.4 g/dl (13.5-17.5); LYMPH # 3.2 10^3/uL (1.5-5.0); LYMPH % 37.2 % (24.0-44.0); MEAN CORPUSCULAR HEMOGLOBIN 32.8 pg (27.0-33.0); MEAN CORPUSCULAR HGB CONC 34.1 g/dl (32.0-36.5); MEAN CORPUSCULAR VOLUME 96.1 fl (80.0-96.0); MONO # 0.7 10^3/uL (0.0-0.8); MONO % 7.8 % (2.0-8.0); PLATELET COUNT, AUTOMATED 166 10^3/uL (150-450); RED BLOOD COUNT 4.09 10^6/uL (4.30-6.10); WHITE BLOOD COUNT 8.6 10^3/uL (4.0-10.0)
[2022-12-14 05:23] LABS: BLOOD UREA NITROGEN 12 MG/DL (9-23); CARBON DIOXIDE LEVEL 22 MMOL/L (20-31); CHLORIDE LEVEL 112 MMOL/L (98-107); CREATININE FOR GFR 0.96 MG/DL (0.70-1.30); GLOMERULAR FILTRATION RATE > 60.0 (>56); GLUCOSE, FASTING 88 MG/DL (60-100); MAGNESIUM LEVEL 2.1 MG/DL (1.8-2.4); POTASSIUM SERUM 4.2 MMOL/L (3.5-5.1); SODIUM LEVEL 141 MMOL/L (136-145)
[2022-12-14 07:34] VITALS: BP 122/72; TEMP 97.2; O2SAT 96
[2022-12-14] MEDS: LACTIC ACID 12% LOTION 225 GM BTL TOP SCH (08:38)
[2022-12-14] MEDS: KETOCONAZOLE 2% CREAM TOP SCH (08:39)
[2022-12-14] MEDS: ENOXAPARIN 40MG/0.4ML SYRINGE (J1650 PER 10MG) SC SCH (08:39)
[2022-12-14] MEDS: FLUTICASONE PROP 0.05% NASAL SPRAY 16 GM (FLONASE) NARES SCH (08:39)
[2022-12-14] MEDS: AMANTADINE 100MG TABLET PO SCH (08:39)
[2022-12-14] MEDS: VITAMIN D 1,000 INTERNATIONAL UNITS TABLET PO SCH (08:39)
[2022-12-14 08:40] VITALS: BP 122/72
[2022-12-14] MEDS: FLUoxetine 10 MG CAP PO SCH (08:40)
[2022-12-14] MEDS: DOCUSATE SODIUM 100MG CAPSULE PO SCH (08:40)
[2022-12-14] MEDS: TOPIRAMATE (TopAMAX) 25 MG TAB PO SCH (08:40)
[2022-12-14] MEDS: FLUoxetine 20MG CAP PO SCH (08:40)
[2022-12-14] MEDS: LITHIUM CARBONATE 300 MG CAP PO SCH (08:40)
[2022-12-14] MEDS: MIRALAX *UNIT DOSE* 17GM PACKET PO SCH (08:41)
[2022-12-14] MEDS: LEVOTHYROXINE 100MCG TABLET (0.1MG) PO SCH (08:41)
[2022-12-14] MEDS: FINASTERIDE 5MG TAB PO SCH (08:41)
[2022-12-14] MEDS ORDERED: LOSARTAN 50MG TABLET PO SCH (09:00)
[2022-12-14] MEDS ORDERED: LOSA-528 PO (12:07)
== END 2022-12-14 15:45 | disposition home or self-care (01) ==
LOC: EDBD 01:11 → M ED 01:11 → M ED INP 01:12 → M PCU 15:48
PROVIDERS: ADMIT Internal Medicine; ATTEND Internal Medicine
DX: R42 Dizziness and giddiness (principal); F71 Moderate intellectual disabilities; I95.1 Orthostatic hypotension; W01.0XXA Fall on same level from slipping, tripping and stumbling without subsequent striking against object, initial encounter; Y92.231 Patient bathroom in hospital as the place of occurrence of the external cause; Y93.01 Activity, walking, marching and hiking; I12.9 Hypertensive chronic kidney disease with stage 1 through stage 4 chronic kidney disease, or unspecified chronic kidney disease; I49.5 Sick sinus syndrome; G47.33 Obstructive sleep apnea (adult) (pediatric); N40.0 Benign prostatic hyperplasia without lower urinary tract symptoms; F25.9 Schizoaffective disorder, unspecified; G24.01 Drug induced subacute dyskinesia; E03.9 Hypothyroidism, unspecified; N18.30 Chronic kidney disease, stage 3 unspecified; Z87.820 Personal history of traumatic brain injury; E55.9 Vitamin D deficiency, unspecified; B18.2 Chronic viral hepatitis C; E66.9 Obesity, unspecified; Z68.34 Body mass index [BMI] 34.0-34.9, adult; N52.9 Male erectile dysfunction, unspecified; M47.812 Spondylosis without myelopathy or radiculopathy, cervical region; R51.9 Headache, unspecified; Z95.0 Presence of cardiac pacemaker; Z91.81 History of falling; Z88.8 Allergy status to other drugs, medicaments and biological substances; Z91.018 Allergy to other foods; Z79.899 Other long term (current) drug therapy; Z79.890 Hormone replacement therapy; Z79.84 Long term (current) use of oral hypoglycemic drugs
CPT/HCPCS: 36415; 70450; 71045; 72125; 80048; 80178; 83036; 83735; 84443; 85025; 87040; 87635; 93005; 93306; 96360; 96361; 96372; 97110; 97116; 97161; 97165; 97530; 97535; 99285; J1650; S0138

== ENCOUNTER 2023-02-18 10:45 | Inpatient (IN) | payer OTHER ==
[~2023-02-18] VITALS: Ht 172.7 cm; Wt 96.1 kg
[~2023-02-18 10:45] MED LIST changes: +CLOT1CRE71 TOP; +LOSA-528 PO
[2023-02-18] MEDS ORDERED: NS 1,000 ML IV ONE (12:55)
[2023-02-18 13:37] LABS: BASO % 0.4 % (0.0-1.0); EOS # 0.3 10^3/uL (0.0-0.5); EOS % 3.4 % (0.0-3.0); HEMATOCRIT 40.8 % (42.0-52.0); HEMOGLOBIN 13.6 g/dl (13.5-17.5); LYMPH # 1.3 10^3/uL (1.5-5.0); LYMPH % 16.4 % (24.0-44.0); MEAN CORPUSCULAR HEMOGLOBIN 32.1 pg (27.0-33.0); MEAN CORPUSCULAR HGB CONC 33.3 g/dl (32.0-36.5); MEAN CORPUSCULAR VOLUME 96.2 fl (80.0-96.0); MONO # 0.5 10^3/uL (0.0-0.8); MONO % 6.8 % (2.0-8.0); NEUTROPHILS # 5.5 10^3/uL (1.5-8.5); NEUTROPHILS % 72.7 % (36.0-66.0); PLATELET COUNT, AUTOMATED 192 10^3/uL (150-450); RED BLOOD COUNT 4.24 10^6/uL (4.30-6.10); WHITE BLOOD COUNT 7.6 10^3/uL (4.0-10.0)
[2023-02-18 13:48] LABS: INR 1.09; PROTHROMBIN TIME 13.8 SECONDS (12.5-14.5)
[2023-02-18 13:49] LABS: PARTIAL THROMBOPLASTIN TIME 29.7 SECONDS (24.8-34.2)
[2023-02-18 14:07] LABS: RSV AMPLIFICATION NEGATIVE (NEGATIVE)
[2023-02-18 14:10] LABS: ETHYL ALCOHOL (ETHANOL) 0.004 % (0.000-0.010)
[2023-02-18 14:11] LABS: LITHIUM LEVEL 1.39 MMOL/L (1.0-1.20); SALICYLATE LEVEL < 3.0 MG/DL (<30)
[2023-02-18 14:12] LABS: ALBUMIN 4.3 G/DL (3.2-5.2); ALKALINE PHOSPHATASE 115 U/L (46-116); ALT/SGPT 24 U/L (7.0-40); AST/SGOT 14 U/L (<34); BILIRUBIN,DIRECT 0.3 MG/DL (<0.4); BILIRUBIN,TOTAL 0.6 MG/DL (0.3-1.2); BLOOD UREA NITROGEN 15 MG/DL (9-23); CALCIUM LEVEL 9.7 MG/DL (8.5-10.1); CARBON DIOXIDE LEVEL 25 MMOL/L (20-31); CHLORIDE LEVEL 108 MMOL/L (98-107); CK-MB VALUE MASS < 1.0 NG/ML (<3.6); CPK CREATINE PHOSPHOKINASE 93 U/L (46-171); CREATININE FOR GFR 1.31 MG/DL (0.70-1.30); GLOMERULAR FILTRATION RATE > 60.0 (>56); GLUCOSE, FASTING 89 MG/DL (60-100); MAGNESIUM LEVEL 2.4 MG/DL (1.8-2.4); MB/CK RELATIVE INDEX 1.07 (< OR =4); POTASSIUM SERUM 4.1 MMOL/L (3.5-5.1); SODIUM LEVEL 138 MMOL/L (136-145); TOTAL PROTEIN 7.3 G/DL (5.7-8.2)
[2023-02-18 14:13] LABS: FREE T4 0.98 NG/DL (0.89-1.76); THYROID STIMULATING HORMONE 0.517 uIU/ML (0.55-4.78)
[2023-02-18 14:23] LABS: OSMOLALITY SERUM 291 MOSM/KG (275-295)
[2023-02-18 15:01] LABS: AMPHETAMINES LEVEL URINE NEGATIVE (NEGATIVE); BARBITURATES URINE NEGATIVE (NEGATIVE); BENZODIAZEPINES URINE NEGATIVE (NEGATIVE); CANNABINOIDS URINE NEGATIVE (NEGATIVE); COCAINE METABOLITE URINE NEGATIVE (NEGATIVE); METHADONE URINE NEGATIVE (NEGATIVE); OPIATES URINE NEGATIVE (NEGATIVE); PHENCYCLIDINE URINE NEGATIVE (NEGATIVE)
[2023-02-18] MEDS ORDERED: MOM 30ML SUSPENSION UDC PO PRN (19:45)
[2023-02-18] MEDS ORDERED: HYDR1TAB33 PO (20:48)
[2023-02-18] MEDS ORDERED: LOSA50TA28 PO (20:48)
[2023-02-18] MEDS ORDERED: HOME MED LIST COMPLETE! XX SCH (20:50)
[2023-02-18 22:25] VITALS: BP 127/89; TEMP 97.7; O2SAT 97
[2023-02-18] MEDS: traZODone 50 MG TAB PO SCH (23:46)
[2023-02-18] MEDS: QUEtiapine FUMARATE 100 MG TAB PO SCH (23:46)
[2023-02-18] MEDS: TOPIRAMATE (TopAMAX) 25 MG TAB PO SCH (23:47)
[2023-02-18] MEDS: hydrOXYzine 50 MG TAB PO PRN (23:47)
[2023-02-18] MEDS: KETOCONAZOLE 2% CREAM TOP SCH (23:47)
[2023-02-18] MEDS: LR 1,000 ML IV SCH (23:47)
[2023-02-18] MEDS: AMANTADINE 100MG TABLET PO SCH (23:47)
[2023-02-18] MEDS: ACETAMINOPHEN TAB 650MG DOSE (2X325MG) PO PRN (23:48)
[2023-02-19 02:00] VITALS: BP 127/85; TEMP 97.7; O2SAT 96
[2023-02-19 04:59] VITALS: BP 120/84; TEMP 97.5; O2SAT 99
[2023-02-19] MEDS: LEVOTHYROXINE 100MCG TABLET (0.1MG) PO SCH (05:31)
[2023-02-19 05:49] LABS: HEMATOCRIT 36.6 % (42.0-52.0); MEAN CORPUSCULAR HEMOGLOBIN 31.3 pg (27.0-33.0); MEAN CORPUSCULAR HGB CONC 32.8 g/dl (32.0-36.5); MEAN CORPUSCULAR VOLUME 95.3 fl (80.0-96.0); PLATELET COUNT, AUTOMATED 158 10^3/uL (150-450); RED BLOOD COUNT 3.84 10^6/uL (4.30-6.10); WHITE BLOOD COUNT 7.3 10^3/uL (4.0-10.0)
[2023-02-19 06:42] LABS: ALBUMIN 3.4 G/DL (3.2-5.2); ALKALINE PHOSPHATASE 89 U/L (46-116); ALT/SGPT 22 U/L (7.0-40); AST/SGOT 13 U/L (<34); BILIRUBIN,TOTAL 0.4 MG/DL (0.3-1.2); BLOOD UREA NITROGEN 13 MG/DL (9-23); CALCIUM LEVEL 9.7 MG/DL (8.5-10.1); CARBON DIOXIDE LEVEL 22 MMOL/L (20-31); CHLORIDE LEVEL 112 MMOL/L (98-107); CREATININE FOR GFR 1.14 MG/DL (0.70-1.30); GLOMERULAR FILTRATION RATE > 60.0 (>56); GLUCOSE, FASTING 83 MG/DL (60-100); POTASSIUM SERUM 4.2 MMOL/L (3.5-5.1); SODIUM LEVEL 141 MMOL/L (136-145); TOTAL PROTEIN 5.8 G/DL (5.7-8.2)
[2023-02-19] MEDS: LR 1,000 ML IV SCH ×2 (08:58→20:09)
[2023-02-19] MEDS: FLUTICASONE PROP 0.05% NASAL SPRAY 16 GM (FLONASE) NARES SCH (08:59)
[2023-02-19] MEDS: MIRALAX *UNIT DOSE* 17GM PACKET PO SCH (08:59)
[2023-02-19] MEDS: HEPARIN SOD (PORCINE) 5000UNITS/ML 1ML VIAL/SYRINGE SC SCH ×2 (08:59→20:23)
[2023-02-19] MEDS: AMANTADINE 100MG TABLET PO SCH ×2 (09:00→20:23)
[2023-02-19] MEDS: LACTIC ACID 12% LOTION 225 GM BTL TOP SCH (09:00)
[2023-02-19] MEDS: KETOCONAZOLE 2% CREAM TOP SCH ×2 (09:00→20:30)
[2023-02-19] MEDS ORDERED: AUSTEDO 12 MG PO SCH (09:00)
[2023-02-19] MEDS: TOPIRAMATE (TopAMAX) 25 MG TAB PO SCH ×3 (09:01→20:23)
[2023-02-19] MEDS: FINASTERIDE 5MG TAB PO SCH (09:01)
[2023-02-19] MEDS: FLUoxetine 10 MG CAP PO SCH (09:01)
[2023-02-19] MEDS: FLUoxetine 20MG CAP PO SCH (09:01)
[2023-02-19] MEDS: ACETAMINOPHEN TAB 650MG DOSE (2X325MG) PO PRN ×2 (09:02→20:38)
[2023-02-19] MEDS: VITAMIN D 1,000 INTERNATIONAL UNITS TABLET PO SCH (09:02)
[2023-02-19] MEDS: UNRESOLVED PATIENT OWN MED ORDER XX SCH (09:14)
[2023-02-19 10:00] VITALS: BP 129/79; TEMP 97.3; O2SAT 97
[2023-02-19 14:00] VITALS: BP 150/93; TEMP 97.3; O2SAT 93
[2023-02-19 18:00] VITALS: BP 119/84; TEMP 97.9; O2SAT 97
[2023-02-19] MEDS: traZODone 50 MG TAB PO SCH (20:23)
[2023-02-19] MEDS: QUEtiapine FUMARATE 100 MG TAB PO SCH (20:29)
[2023-02-19 21:00] VITALS: BP 125/83; TEMP 97.7; O2SAT 98
[2023-02-19] MEDS ORDERED: LYBALVI PO SCH (21:00)
[2023-02-20] MEDS: UNRESOLVED PATIENT OWN MED ORDER XX SCH ×2 (00:01→19:17)
[2023-02-20 01:52] VITALS: BP 119/79; TEMP 97.7; O2SAT 96
[2023-02-20 05:05] VITALS: BP 133/92; TEMP 97.9; O2SAT 97
[2023-02-20] MEDS: LEVOTHYROXINE 100MCG TABLET (0.1MG) PO SCH (05:39)
[2023-02-20] MEDS: LR 1,000 ML IV SCH (05:39)
[2023-02-20] MEDS: AMANTADINE 100MG TABLET PO SCH ×2 (08:32→20:02)
[2023-02-20] MEDS: MIRALAX *UNIT DOSE* 17GM PACKET PO SCH (08:32)
[2023-02-20] MEDS: TOPIRAMATE (TopAMAX) 25 MG TAB PO SCH ×3 (08:32→20:01)
[2023-02-20] MEDS: VITAMIN D 1,000 INTERNATIONAL UNITS TABLET PO SCH (08:33)
[2023-02-20] MEDS: FLUTICASONE PROP 0.05% NASAL SPRAY 16 GM (FLONASE) NARES SCH (08:33)
[2023-02-20] MEDS: HEPARIN SOD (PORCINE) 5000UNITS/ML 1ML VIAL/SYRINGE SC SCH ×2 (08:33→20:00)
[2023-02-20] MEDS: FLUoxetine 20MG CAP PO SCH (08:33)
[2023-02-20] MEDS: FINASTERIDE 5MG TAB PO SCH (08:33)
[2023-02-20] MEDS: FLUoxetine 10 MG CAP PO SCH (08:33)
[2023-02-20] MEDS: KETOCONAZOLE 2% CREAM TOP SCH ×2 (08:34→19:58)
[2023-02-20] MEDS: LACTIC ACID 12% LOTION 225 GM BTL TOP SCH (08:34)
[2023-02-20 10:00] VITALS: BP 124/84; TEMP 97.7; O2SAT 97
[2023-02-20 14:00] VITALS: BP 123/86; TEMP 97.7; O2SAT 93
[2023-02-20 18:00] VITALS: BP 113/70; TEMP 97; O2SAT 98
[2023-02-20] MEDS: ACETAMINOPHEN TAB 650MG DOSE (2X325MG) PO PRN (20:01)
[2023-02-20] MEDS: QUEtiapine FUMARATE 100 MG TAB PO SCH (20:01)
[2023-02-20] MEDS: traZODone 50 MG TAB PO SCH (20:01)
[2023-02-20] MEDS: hydrOXYzine 50 MG TAB PO PRN (20:02)
[2023-02-20 22:04] VITALS: BP 124/74; TEMP 98.4; O2SAT 99
[2023-02-21] MEDS: ACETAMINOPHEN TAB 650MG DOSE (2X325MG) PO PRN (00:04)
[2023-02-21 01:58] VITALS: BP 120/80; TEMP 98.1; O2SAT 99
[2023-02-21 05:22] VITALS: BP 136/90; TEMP 97.7; O2SAT 100
[2023-02-21] MEDS: LEVOTHYROXINE 100MCG TABLET (0.1MG) PO SCH (05:26)
[2023-02-21] MEDS ORDERED: QUET150T18 PO (08:36)
[2023-02-21] MEDS: VITAMIN D 1,000 INTERNATIONAL UNITS TABLET PO SCH (08:50)
[2023-02-21] MEDS: TOPIRAMATE (TopAMAX) 25 MG TAB PO SCH (08:50)
[2023-02-21] MEDS: FINASTERIDE 5MG TAB PO SCH (08:50)
[2023-02-21] MEDS: FLUoxetine 10 MG CAP PO SCH (08:50)
[2023-02-21] MEDS: FLUoxetine 20MG CAP PO SCH (08:50)
[2023-02-21] MEDS: AMANTADINE 100MG TABLET PO SCH (08:51)
[2023-02-21] MEDS: HEPARIN SOD (PORCINE) 5000UNITS/ML 1ML VIAL/SYRINGE SC SCH (08:51)
[2023-02-21] MEDS: KETOCONAZOLE 2% CREAM TOP SCH (08:51)
[2023-02-21] MEDS: MIRALAX *UNIT DOSE* 17GM PACKET PO SCH (08:52)
[2023-02-21] MEDS: FLUTICASONE PROP 0.05% NASAL SPRAY 16 GM (FLONASE) NARES SCH (08:52)
[2023-02-21] MEDS: LACTIC ACID 12% LOTION 225 GM BTL TOP SCH (08:52)
[2023-02-21 10:00] VITALS: BP 130/91; TEMP 97.3; O2SAT 100
== END 2023-02-21 11:20 | disposition home or self-care (01) | DRG 816 ==
LOC: M ED 10:45 → M ED INP 19:42 → ENRESERV 20:07 → M MSPAV 22:26 → OBSVTOIN 02-19 10:30
PROVIDERS: ADMIT Internal Medicine; ATTEND Internal Medicine
DX: T56.89 Toxic effects of other metals (principal); N17.9 Acute kidney failure, unspecified; N18.30 Chronic kidney disease, stage 3 unspecified; F25.9 Schizoaffective disorder, unspecified; R47.81 Slurred speech; R29.6 Repeated falls; F71 Moderate intellectual disabilities; I12.9 Hypertensive chronic kidney disease with stage 1 through stage 4 chronic kidney disease, or unspecified chronic kidney disease; G47.33 Obstructive sleep apnea (adult) (pediatric); E03.9 Hypothyroidism, unspecified; N40.0 Benign prostatic hyperplasia without lower urinary tract symptoms; G24.01 Drug induced subacute dyskinesia; E66.9 Obesity, unspecified; B18.2 Chronic viral hepatitis C; N52.9 Male erectile dysfunction, unspecified; M47.892 Other spondylosis, cervical region; I95.1 Orthostatic hypotension; Z79.890 Hormone replacement therapy; Z79.84 Long term (current) use of oral hypoglycemic drugs; Z79.899 Other long term (current) drug therapy; Z91.018 Allergy to other foods; Z88.8 Allergy status to other drugs, medicaments and biological substances; Z20.822 Contact with and (suspected) exposure to COVID-19; Z95.0 Presence of cardiac pacemaker; Z87.820 Personal history of traumatic brain injury

== ENCOUNTER 2023-02-26 18:54 | Emergency (ER) | payer OTHER ==
[~2023-02-26 18:54] MED LIST changes: +HYDR1TAB33 PO; +QUET150T18 PO
[2023-02-26] MEDS ORDERED: ACETAMINOPHEN 500 MG TAB PO ONE (20:50)
[2023-02-26 22:47] VITALS: BP 151/99; TEMP 97.5; O2SAT 98
== END 2023-02-26 23:19 | disposition home or self-care (01) ==
LOC: M ED 18:54
DX: S06.0X0A Concussion without loss of consciousness, initial encounter (principal); S00.83XA Contusion of other part of head, initial encounter; W01.10XA Fall on same level from slipping, tripping and stumbling with subsequent striking against unspecified object, initial encounter; Y92.89 Other specified places as the place of occurrence of the external cause; Y93.89 Activity, other specified; Y99.8 Other external cause status; F25.9 Schizoaffective disorder, unspecified; R25.1 Tremor, unspecified; I10 Essential (primary) hypertension; N40.0 Benign prostatic hyperplasia without lower urinary tract symptoms; E03.9 Hypothyroidism, unspecified; B18.2 Chronic viral hepatitis C; Z91.010 Allergy to peanuts; Z88.8 Allergy status to other drugs, medicaments and biological substances; Z79.84 Long term (current) use of oral hypoglycemic drugs; Z79.899 Other long term (current) drug therapy

== ENCOUNTER 2023-03-23 22:29 | Emergency (ER) | payer OTHER ==
[~2023-03-23] VITALS: Ht 172.7 cm; Wt 98.3 kg
[2023-03-24] MEDS ORDERED: ACETAMINOPHEN 325 MG TAB PO ONE (06:40)
[2023-03-24 07:43] VITALS: BP 127/81; O2SAT 98
[2023-03-24 07:50] VITALS: TEMP 97
[2023-03-24 08:08] LABS: BASO # 0.1 10^3/uL (0.0-0.2); BASO % 0.7 % (0.0-1.0); EOS # 0.6 10^3/uL (0.0-0.5); EOS % 8.6 % (0.0-3.0); HEMATOCRIT 41.8 % (42.0-52.0); HEMOGLOBIN 14.3 g/dl (13.5-17.5); LYMPH # 2.8 10^3/uL (1.5-5.0); LYMPH % 38.4 % (24.0-44.0); MEAN CORPUSCULAR HEMOGLOBIN 31.2 pg (27.0-33.0); MEAN CORPUSCULAR HGB CONC 34.2 g/dl (32.0-36.5); MEAN CORPUSCULAR VOLUME 91.3 fl (80.0-96.0); MONO # 0.7 10^3/uL (0.0-0.8); MONO % 9.7 % (2.0-8.0); NEUTROPHILS # 3.1 10^3/uL (1.5-8.5); NEUTROPHILS % 42.5 % (36.0-66.0); PLATELET COUNT, AUTOMATED 179 10^3/uL (150-450); RED BLOOD COUNT 4.58 10^6/uL (4.30-6.10); WHITE BLOOD COUNT 7.3 10^3/uL (4.0-10.0)
[2023-03-24 08:15] LABS: APPEARANCE, URINE CLEAR (CLEAR); BACTERIA, URINE AUTO NEGATIVE (NEGATIVE); BILIRUBIN, URINE AUTO NEGATIVE (NEGATIVE); BLOOD, URINE BLOOD 1+ (NEGATIVE); COLOR, URINE COLORLESS (YELLOW); GLUCOSE, URINE (UA) AUTO NEGATIVE (NEGATIVE); KETONE, URINE AUTO NEGATIVE (NEGATIVE); LEUKOCYTE ESTERASE, URINE AUTO NEGATIVE (NEGATIVE); NITRITE, URINE AUTO NEGATIVE (NEGATIVE); PROTEIN, URINE AUTO NEGATIVE (NEGATIVE); RBC, URINE AUTO 0 /HPF (0-3); SPECIFIC GRAVITY URINE AUTO 1.001 (1.002-1.035); SQUAMOUS EPITHELIAL CELL UR AU 0 /HPF (0-6); UROBILINOGEN, URINE AUTO 0.2 mg/dL (0.0-2.0); WBC, URINE AUTO 0 /HPF (0-3)
[2023-03-24 08:34] LABS: ALBUMIN 3.9 G/DL (3.2-5.2); ALKALINE PHOSPHATASE 112 U/L (46-116); ALT/SGPT 60 U/L (7.0-40); AST/SGOT 43 U/L (<34); BILIRUBIN,DIRECT 0.2 MG/DL (<0.4); BILIRUBIN,TOTAL 0.4 MG/DL (0.3-1.2); BLOOD UREA NITROGEN 13 MG/DL (9-23); CALCIUM LEVEL 8.8 MG/DL (8.5-10.1); CARBON DIOXIDE LEVEL 26 MMOL/L (20-31); CHLORIDE LEVEL 108 MMOL/L (98-107); CK-MB VALUE MASS < 1.0 NG/ML (<3.6); CREATININE FOR GFR 1.05 MG/DL (0.70-1.30); GLOMERULAR FILTRATION RATE > 60.0 (>56); GLUCOSE, FASTING 76 MG/DL (60-100); SODIUM LEVEL 137 MMOL/L (136-145); TOTAL PROTEIN 6.9 G/DL (5.7-8.2)
[2023-03-24 08:39] LABS: CPK CREATINE PHOSPHOKINASE 68 U/L (46-171); MB/CK RELATIVE INDEX 1.47 (< OR =4)
[2023-03-24 08:59] LABS: AMPHETAMINES LEVEL URINE NEGATIVE (NEGATIVE); BARBITURATES URINE NEGATIVE (NEGATIVE); BENZODIAZEPINES URINE NEGATIVE (NEGATIVE); CANNABINOIDS URINE NEGATIVE (NEGATIVE); COCAINE METABOLITE URINE NEGATIVE (NEGATIVE); METHADONE URINE NEGATIVE (NEGATIVE); OPIATES URINE NEGATIVE (NEGATIVE); PHENCYCLIDINE URINE NEGATIVE (NEGATIVE)
== END 2023-03-24 10:41 | disposition home or self-care (01) ==
LOC: M ED 22:29
DX: S09.90XA Unspecified injury of head, initial encounter (principal); S13.4XXA Sprain of ligaments of cervical spine, initial encounter; W10.8XXA Fall (on) (from) other stairs and steps, initial encounter; Y92.009 Unspecified place in unspecified non-institutional (private) residence as the place of occurrence of the external cause; Y93.9 Activity, unspecified; Y99.9 Unspecified external cause status; I10 Essential (primary) hypertension; Z86.19 Personal history of other infectious and parasitic diseases; N40.0 Benign prostatic hyperplasia without lower urinary tract symptoms; E03.9 Hypothyroidism, unspecified; F25.0 Schizoaffective disorder, bipolar type; Z79.899 Other long term (current) drug therapy; Z88.8 Allergy status to other drugs, medicaments and biological substances; Z91.010 Allergy to peanuts

== ENCOUNTER 2023-03-29 13:40 | Inpatient (IN) | payer MEDICAID, OTHER ==
[~2023-03-29] VITALS: Ht 172.7 cm; Wt 90.7 kg
[2023-03-29 14:26] LABS: HEMATOCRIT 43.4 % (42.0-52.0); HEMOGLOBIN 14.8 g/dl (13.5-17.5); MEAN CORPUSCULAR HEMOGLOBIN 31.5 pg (27.0-33.0); MEAN CORPUSCULAR HGB CONC 34.1 g/dl (32.0-36.5); MEAN CORPUSCULAR VOLUME 92.3 fl (80.0-96.0); PLATELET COUNT, AUTOMATED 206 10^3/uL (150-450); WHITE BLOOD COUNT 8.2 10^3/uL (4.0-10.0)
[2023-03-29 14:59] LABS: ETHYL ALCOHOL (ETHANOL) < 0.003 % (0.000-0.010)
[2023-03-29 15:01] LABS: ALKALINE PHOSPHATASE 121 U/L (46-116); ALT/SGPT 37 U/L (7.0-40); AST/SGOT 17 U/L (<34); BILIRUBIN,DIRECT 0.2 MG/DL (<0.4); BILIRUBIN,TOTAL 0.4 MG/DL (0.3-1.2); BLOOD UREA NITROGEN 15 MG/DL (9-23); CALCIUM LEVEL 9.7 MG/DL (8.5-10.1); CARBON DIOXIDE LEVEL 26 MMOL/L (20-31); CHLORIDE LEVEL 108 MMOL/L (98-107); CREATININE FOR GFR 1.23 MG/DL (0.70-1.30); GLOMERULAR FILTRATION RATE > 60.0 (>56); GLUCOSE, FASTING 85 MG/DL (60-100); POTASSIUM SERUM 4.4 MMOL/L (3.5-5.1); SALICYLATE LEVEL < 3.0 MG/DL (<30); SODIUM LEVEL 139 MMOL/L (136-145); TOTAL PROTEIN 7.5 G/DL (5.7-8.2)
[2023-03-29 15:03] LABS: THYROID STIMULATING HORMONE 0.995 uIU/ML (0.55-4.78)
[2023-03-29 15:21] LABS: AMPHETAMINES LEVEL URINE NEGATIVE (NEGATIVE); BARBITURATES URINE NEGATIVE (NEGATIVE); BENZODIAZEPINES URINE NEGATIVE (NEGATIVE); COCAINE METABOLITE URINE NEGATIVE (NEGATIVE); METHADONE URINE NEGATIVE (NEGATIVE)
[2023-03-29 15:22] LABS: CANNABINOIDS URINE NEGATIVE (NEGATIVE); OPIATES URINE NEGATIVE (NEGATIVE); PHENCYCLIDINE URINE NEGATIVE (NEGATIVE)
[2023-03-29] MEDS ORDERED: MED REC IN PROGRESS XX SCH (16:10)
[2023-03-29] MEDS ORDERED: HOME MED LIST COMPLETE! XX SCH (17:40)
[2023-03-29] MEDS: AMANTADINE 100MG TABLET PO SCH (18:00)
[2023-03-29] MEDS: metFORMIN XR 500MG TAB *GLUCOPHAGE XR PO SCH (18:47)
[2023-03-29] MEDS: QUEtiapine FUMARATE 50MG TAB PO SCH (21:42)
[2023-03-29] MEDS: TOPIRAMATE (TopAMAX) 25 MG TAB PO SCH (21:42)
[2023-03-29] MEDS: traZODone 50 MG TAB PO SCH (21:42)
[2023-03-29] MEDS: LOSARTAN 50MG TABLET PO SCH (21:42)
[2023-03-30] MEDS: ACETAMINOPHEN TAB 650MG DOSE (2X325MG) PO ONE (00:01)
[2023-03-30] MEDS: LEVOTHYROXINE 100MCG TABLET (0.1MG) PO SCH (06:00)
[2023-03-30] MEDS ORDERED: LOSARTAN 50MG TABLET PO SCH (09:00)
[2023-03-30] MEDS: MIRALAX *UNIT DOSE* 17GM PACKET PO SCH (10:07)
[2023-03-30] MEDS: FINASTERIDE 5MG TAB PO SCH (10:07)
[2023-03-30] MEDS: FLUoxetine 10 MG CAP PO SCH (10:07)
[2023-03-30] MEDS: FLUTICASONE PROP 0.05% NASAL SPRAY 16 GM (FLONASE) NARES SCH (10:17)
[2023-03-30] MEDS: AMANTADINE 100MG TABLET PO SCH (11:22)
[2023-03-30] MEDS: ACETAMINOPHEN 500 MG TAB PO ONE (11:22)
[2023-04-01] MEDS: ACETAMINOPHEN 500 MG TAB PO ONE (10:56)
[2023-04-01] MEDS: ACETAMINOPHEN TAB 650MG DOSE (2X325MG) PO ONE (22:35)
[2023-04-02] MEDS ORDERED: MOM 30ML SUSPENSION UDC PO PRN (13:05)
[2023-04-02] MEDS ORDERED: MAALOX 30 ML SUSP *UDC PO PRN (13:05)
[2023-04-02 14:58] VITALS: BP 129/80; TEMP 97.4; O2SAT 96
[2023-04-02] MEDS ORDERED: NAPROXEN 250 MG TAB PO PRN (19:10)
[2023-04-02] MEDS: LOSARTAN 50MG TABLET PO SCH (21:48)
[2023-04-02] MEDS: metFORMIN XR 500MG TAB *GLUCOPHAGE XR PO SCH (21:49)
[2023-04-02] MEDS: TOPIRAMATE (TopAMAX) 25 MG TAB PO SCH (21:49)
[2023-04-02] MEDS: LIDOCAINE 5% OINT 30GM TUBE TOP SCH (22:14)
[2023-04-02] MEDS: ACETAMINOPHEN TAB 650MG DOSE (2X325MG) PO PRN (23:23)
[2023-04-03] MEDS: LEVOTHYROXINE 100MCG TABLET (0.1MG) PO SCH (05:34)
[2023-04-03 06:35] VITALS: BP 122/70; TEMP 97.8; O2SAT 97
[2023-04-03] MEDS: FINASTERIDE 5MG TAB PO SCH (10:53)
[2023-04-03] MEDS: FLUoxetine 20MG CAP PO SCH (10:54)
[2023-04-03] MEDS: FLUoxetine 10 MG CAP PO SCH (10:54)
[2023-04-03] MEDS: AMANTADINE 100MG TABLET PO SCH ×2 (10:55→17:40)
[2023-04-03] MEDS: VITAMIN D 1,000 INTERNATIONAL UNITS TABLET PO SCH (10:57)
[2023-04-03] MEDS: MIRALAX *UNIT DOSE* 17GM PACKET PO SCH (11:04)
[2023-04-03] MEDS: KETOCONAZOLE 2% CREAM TOP SCH (11:22)
[2023-04-03] MEDS: LACTIC ACID 12% LOTION 225 GM BTL TOP SCH (11:22)
[2023-04-03] MEDS: FLUTICASONE PROP 0.05% NASAL SPRAY 16 GM (FLONASE) NARES SCH (17:39)
[2023-04-03] MEDS: AUSTEDO 12MG PO SCH (17:40)
[2023-04-03 19:08] VITALS: BP 128/79; TEMP 98.3; O2SAT 97
[2023-04-03] MEDS: QUEtiapine FUMARATE 50MG TAB PO SCH (21:04)
[2023-04-03] MEDS: LYBALVI PO SCH (21:17)
[2023-04-03] MEDS: OLANZapine 10 MG TAB PO SCH (21:18)
[2023-04-04 06:10] VITALS: BP 135/83; TEMP 96.8; O2SAT 99
[2023-04-04] MEDS: FLUoxetine 20MG CAP PO SCH (10:03)
[2023-04-04 19:05] VITALS: BP 106/63; TEMP 96.7; O2SAT 95
[2023-04-04 19:16] VITALS: BP 106/63; TEMP 97.5; O2SAT 96
[2023-04-05 06:21] VITALS: BP 141/90; TEMP 97.9; O2SAT 95
[2023-04-05] MEDS: IBUPROFEN 400MG TAB PO PRN (11:35)
[2023-04-05 18:09] VITALS: BP 150/88; TEMP 98
[2023-04-05] MEDS: diphenhydrAMINE 25MG CAP PO PRN (21:01)
[2023-04-05] MEDS: OLANZapine 5 MG TAB PO PRN (21:40)
[2023-04-05] MEDS: traZODone 50 MG TAB PO PRN (21:40)
[2023-04-06 06:46] VITALS: BP 129/90; TEMP 97.5
[2023-04-06 07:08] LABS: CHOLESTEROL RISK RATIO 3.42 (<5); HDL CHOLESTEROL 45.8 MG/DL (>40); NON-HDL-C 111.2 MG/DL
[2023-04-06 16:20] VITALS: BP 148/94; TEMP 97.6; O2SAT 99
[2023-04-07 06:38] VITALS: BP 109/69; TEMP 96.6; O2SAT 96
[2023-04-07 16:46] VITALS: BP 108/88; TEMP 97.9; O2SAT 97
[2023-04-07] MEDS: hydrOXYzine 50 MG TAB PO PRN (19:51)
[2023-04-08 09:00] VITALS: BP 150/100
[2023-04-08 11:45] VITALS: BP 130/80
[2023-04-08 17:02] VITALS: BP 142/96; TEMP 98.6; O2SAT 99
[2023-04-09 06:37] VITALS: BP 127/71; TEMP 98; O2SAT 93
[2023-04-09 18:23] VITALS: BP 138/90; TEMP 96.6; O2SAT 96
[2023-04-10 06:42] VITALS: BP 110/69; TEMP 97.1; O2SAT 95
[2023-04-10] MEDS: CARBAMIDE PEROXIDE 6.5% OTIC SOLN 15ML AU SCH (12:05)
[2023-04-10 17:13] VITALS: BP 143/57; TEMP 96.8; O2SAT 99
[2023-04-11 06:05] VITALS: BP 123/65; TEMP 97.4; O2SAT 95
[2023-04-11 08:38] VITALS: BP 132/86
[2023-04-11] MEDS ORDERED: CARBOT AU (10:35)
[2023-04-11] MEDS ORDERED: FLUO40CA PO (10:35)
[2023-04-11] MEDS ORDERED: FLUO20CA22 PO (10:35)
[2023-04-11] MEDS ORDERED: OLAN1TAB16 PO (10:35)
== END 2023-04-11 13:50 | disposition home or self-care (01) | DRG 750 ==
LOC: M ED 13:40 → EDBEDREQTM 04-02 12:28 → EDBEDREQDT 04-02 12:28 → M ED INP 04-02 13:05 → M PSY 04-02 14:23
PROVIDERS: ADMIT Student in an Organized Health Care Education/Training Program; ATTEND Student in an Organized Health Care Education/Training Program
PROC: 8E0ZXY6 Isolation (ICD-10-PCS; principal; 2023-04-02)
DX: F25.0 Schizoaffective disorder, bipolar type (principal); U07.1 COVID-19; I49.5 Sick sinus syndrome; R45.851 Suicidal ideations; N18.31 Chronic kidney disease, stage 3a; K73.9 Chronic hepatitis, unspecified; F71 Moderate intellectual disabilities; E03.9 Hypothyroidism, unspecified; I12.9 Hypertensive chronic kidney disease with stage 1 through stage 4 chronic kidney disease, or unspecified chronic kidney disease; E55.9 Vitamin D deficiency, unspecified; G43.909 Migraine, unspecified, not intractable, without status migrainosus; M19.90 Unspecified osteoarthritis, unspecified site; R73.01 Impaired fasting glucose; G47.33 Obstructive sleep apnea (adult) (pediatric); N40.0 Benign prostatic hyperplasia without lower urinary tract symptoms; E66.9 Obesity, unspecified; N52.9 Male erectile dysfunction, unspecified; M47.892 Other spondylosis, cervical region; E78.2 Mixed hyperlipidemia; Z79.890 Hormone replacement therapy; Z79.84 Long term (current) use of oral hypoglycemic drugs; Z79.899 Other long term (current) drug therapy; Z91.018 Allergy to other foods; Z88.8 Allergy status to other drugs, medicaments and biological substances; Z87.820 Personal history of traumatic brain injury; Z91.52 Personal history of nonsuicidal self-harm; Z95.0 Presence of cardiac pacemaker; Z90.49 Acquired absence of other specified parts of digestive tract

== ENCOUNTER → 2023-05-14 | Outpatient (REF) | payer OTHER ==
[~2023-05-14] MED LIST changes: +CARBOT AU; -MIRA1POW3 PO; +MIRA33506 PO
== END ==
LOC: M SFHCPLAZ 16:51
PROVIDERS: ATTEND Family Medicine
DX: E03.9 Hypothyroidism, unspecified (principal); C84.A0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, unspecified, unspecified site; E55.9 Vitamin D deficiency, unspecified; Z12.5 Encounter for screening for malignant neoplasm of prostate; R73.01 Impaired fasting glucose; E78.2 Mixed hyperlipidemia

== ENCOUNTER 2023-07-29 15:50 | Inpatient (IN) | payer MEDICAID, OTHER ==
[~2023-07-29] VITALS: Ht 172.7 cm; Wt 96.1 kg
[~2023-07-29 15:50] MED LIST changes: +FLUO-290 PO; +FLUO-365 PO; -FLUO10CA18 PO; -FLUO20CA22 PO
[2023-07-29 19:08] LABS: HEMATOCRIT 41.8 % (42.0-52.0); HEMOGLOBIN 14.2 g/dl (13.5-17.5); MEAN CORPUSCULAR HEMOGLOBIN 31.6 pg (27.0-33.0); MEAN CORPUSCULAR VOLUME 92.9 fl (80.0-96.0); PLATELET COUNT, AUTOMATED 158 10^3/uL (150-450); WHITE BLOOD COUNT 7.6 10^3/uL (4.0-10.0)
[2023-07-29 19:26] LABS: AMPHETAMINES LEVEL URINE NEGATIVE (NEGATIVE); BARBITURATES URINE NEGATIVE (NEGATIVE); BENZODIAZEPINES URINE NEGATIVE (NEGATIVE); CANNABINOIDS URINE NEGATIVE (NEGATIVE); COCAINE METABOLITE URINE NEGATIVE (NEGATIVE); METHADONE URINE NEGATIVE (NEGATIVE); OPIATES URINE NEGATIVE (NEGATIVE); PHENCYCLIDINE URINE NEGATIVE (NEGATIVE)
[2023-07-29 19:28] LABS: ETHYL ALCOHOL (ETHANOL) < 0.003 % (0.000-0.010)
[2023-07-29 19:30] LABS: ALBUMIN 3.5 G/DL (3.2-5.2); ALKALINE PHOSPHATASE 122 U/L (46-116); ALT/SGPT 34 U/L (7.0-40); AST/SGOT 16 U/L (<34); BILIRUBIN,DIRECT 0.1 MG/DL (<0.4); BILIRUBIN,TOTAL 0.3 MG/DL (0.3-1.2); BLOOD UREA NITROGEN 16 MG/DL (9-23); CALCIUM LEVEL 9.2 MG/DL (8.5-10.1); CARBON DIOXIDE LEVEL 26 MMOL/L (20-31); CHLORIDE LEVEL 111 MMOL/L (98-107); CREATININE FOR GFR 1.25 MG/DL (0.70-1.30); GLOMERULAR FILTRATION RATE > 60.0 (>56); GLUCOSE, FASTING 78 MG/DL (60-100); POTASSIUM SERUM 4.5 MMOL/L (3.5-5.1); SALICYLATE LEVEL < 3.0 MG/DL (<30); SODIUM LEVEL 143 MMOL/L (136-145); TOTAL PROTEIN 6.5 G/DL (5.7-8.2)
[2023-07-29 19:32] LABS: THYROID STIMULATING HORMONE 0.644 uIU/ML (0.55-4.78)
[2023-07-29] MEDS ORDERED: HOME MED LIST COMPLETE! XX SCH (20:45)
[2023-07-30] MEDS ORDERED: FLUoxetine 20MG CAP PO SCH ×2 (09:00)
[2023-07-30] MEDS ORDERED: LEVOTHYROXINE 100MCG TABLET (0.1MG) PO SCH (09:00)
[2023-07-30] MEDS: FLUoxetine 20MG CAP PO SCH (12:03)
[2023-07-30] MEDS: LOSARTAN 50MG TABLET PO SCH (12:05)
[2023-07-30] MEDS: FINASTERIDE 5MG TAB PO SCH (12:05)
[2023-07-30] MEDS: LEVOTHYROXINE 100MCG TABLET (0.1MG) PO SCH (12:05)
[2023-07-30] MEDS: AMANTADINE 100MG TABLET PO SCH ×2 (12:06→17:24)
[2023-07-30] MEDS ORDERED: OLANZapine ORAL DISINTEGRATING TAB 5MG PO PRN (12:15)
[2023-07-30] MEDS ORDERED: MOM 30ML SUSPENSION UDC PO PRN (12:15)
[2023-07-30] MEDS ORDERED: MAALOX 30 ML SUSP *UDC PO PRN (12:15)
[2023-07-30 13:54] VITALS: BP 141/81; TEMP 97.2; O2SAT 99
[2023-07-30] MEDS: TOPIRAMATE (TopAMAX) 25 MG TAB PO SCH (16:37)
[2023-07-30] MEDS: metFORMIN XR 500MG TAB *GLUCOPHAGE XR PO SCH (17:23)
[2023-07-30] MEDS: QUEtiapine FUMARATE 50MG TAB PO SCH (21:43)
[2023-07-30] MEDS: ACETAMINOPHEN TAB 650MG DOSE (2X325MG) PO PRN (21:44)
[2023-07-31] MEDS ORDERED: LEVOTHYROXINE 100MCG TABLET (0.1MG) PO SCH (06:00)
[2023-07-31 06:15] VITALS: BP 126/79; TEMP 97.1; O2SAT 100
[2023-07-31 08:42] VITALS: BP 123/88
[2023-07-31] MEDS ORDERED: TOPIRAMATE (TopAMAX) 25 MG TAB PO SCH (09:00)
[2023-07-31] MEDS ORDERED: FLUoxetine 20MG CAP PO SCH (09:00)
[2023-07-31] MEDS ORDERED: AMANTADINE 100MG TABLET PO SCH (09:00)
[2023-07-31] MEDS ORDERED: LOSARTAN 50MG TABLET PO SCH (09:00)
[2023-07-31] MEDS: MIRALAX *UNIT DOSE* 17GM PACKET PO SCH (09:50)
[2023-07-31] MEDS: FINASTERIDE 5MG TAB PO SCH (12:04)
[2023-07-31] MEDS: FLUTICASONE PROP 0.05% NASAL SPRAY 16 GM (FLONASE) NARES SCH (12:04)
[2023-07-31] MEDS: DICLOFENAC EPOLAMINE 1.3% PATCH TOP SCH (14:49)
[2023-07-31] MEDS: TOPIRAMATE (TopAMAX) 25 MG TAB PO SCH (15:03)
[2023-07-31 16:15] VITALS: BP 142/86; TEMP 97.6
[2023-07-31] MEDS: metFORMIN (GLUCOPHAGE) 500MG TAB PO SCH (17:27)
[2023-07-31] MEDS: KETOCONAZOLE 2% CREAM TOP SCH (21:49)
[2023-07-31] MEDS: QUEtiapine FUMARATE 50MG TAB PO SCH (21:50)
[2023-07-31] MEDS: AMANTADINE 100MG TABLET PO SCH (21:50)
[2023-07-31] MEDS: traZODone 50 MG TAB PO PRN (21:50)
[2023-07-31] MEDS: LOSARTAN 50MG TABLET PO SCH (21:54)
[2023-07-31 21:57] VITALS: BP 155/90
[2023-08-01] MEDS: LEVOTHYROXINE 100MCG TABLET (0.1MG) PO SCH (05:26)
[2023-08-01 06:16] VITALS: BP 128/80; TEMP 97.6; O2SAT 100
[2023-08-01] MEDS: FLUoxetine 20MG CAP PO SCH (08:16)
[2023-08-01] MEDS: AMANTADINE 100MG TABLET PO SCH (08:20)
[2023-08-01] MEDS: AUSTEDO 12 MG PO SCH (09:00)
[2023-08-01 17:55] VITALS: BP 133/83; TEMP 97.8
[2023-08-01] MEDS: LYBALVI PO SCH (21:43)
[2023-08-01 21:51] VITALS: BP 114/86
[2023-08-02 06:14] VITALS: BP 112/62; TEMP 97.2; O2SAT 97
[2023-08-02 17:12] VITALS: BP 132/100; TEMP 97; O2SAT 100
[2023-08-03 06:40] VITALS: BP 143/93; TEMP 98; O2SAT 99
[2023-08-03 16:34] VITALS: BP 139/98; TEMP 97.5; O2SAT 100
[2023-08-03] MEDS: diphenhydrAMINE 25MG CAP PO PRN (22:23)
[2023-08-04 16:02] VITALS: BP 134/89; TEMP 98; O2SAT 98
[2023-08-05 06:20] VITALS: BP 130/80; TEMP 96.6; O2SAT 96
[2023-08-05 17:32] VITALS: BP 147/86; TEMP 98.3; O2SAT 100
[2023-08-05 22:02] VITALS: BP 138/88
[2023-08-05] MEDS: IBUPROFEN 400MG TAB PO PRN (22:09)
[2023-08-06 06:02] VITALS: BP 136/70; TEMP 96.3; O2SAT 99
[2023-08-06 09:31] VITALS: BP 136/70
[2023-08-06] MEDS ORDERED: ZYPR5TAB2 PO (13:29)
== END 2023-08-06 11:30 | disposition home or self-care (01) | DRG 750 ==
LOC: M ED 15:50 → M ED INP 07-30 12:15 → M PSY 07-30 13:35
PROVIDERS: ADMIT Student in an Organized Health Care Education/Training Program; ATTEND Student in an Organized Health Care Education/Training Program
DX: F25.0 Schizoaffective disorder, bipolar type (principal); F71 Moderate intellectual disabilities; R45.851 Suicidal ideations; N18.31 Chronic kidney disease, stage 3a; I12.9 Hypertensive chronic kidney disease with stage 1 through stage 4 chronic kidney disease, or unspecified chronic kidney disease; E66.9 Obesity, unspecified; G47.33 Obstructive sleep apnea (adult) (pediatric); E03.9 Hypothyroidism, unspecified; E78.2 Mixed hyperlipidemia; Z87.820 Personal history of traumatic brain injury; Z95.0 Presence of cardiac pacemaker; Z88.8 Allergy status to other drugs, medicaments and biological substances; Z68.36 Body mass index [BMI] 36.0-36.9, adult; Z79.899 Other long term (current) drug therapy; Z91.52 Personal history of nonsuicidal self-harm; Z91.018 Allergy to other foods; Z79.890 Hormone replacement therapy; Z91.010 Allergy to peanuts; Z91.51 Personal history of suicidal behavior

== ENCOUNTER 2023-08-15 19:31 | Emergency (ER) | payer MEDICAID, OTHER ==
[~2023-08-15] VITALS: Ht 172.7 cm; Wt 98.1 kg
[~2023-08-15 19:31] MED LIST changes: +ZYPR5TAB2 PO
[2023-08-15 20:45] VITALS: BP 145/95; TEMP 98; O2SAT 98
== END 2023-08-15 22:03 | disposition home or self-care (01) ==
LOC: M ED 19:31
DX: R63.1 Polydipsia (principal); I12.9 Hypertensive chronic kidney disease with stage 1 through stage 4 chronic kidney disease, or unspecified chronic kidney disease; Z91.010 Allergy to peanuts; Z88.8 Allergy status to other drugs, medicaments and biological substances; Z79.84 Long term (current) use of oral hypoglycemic drugs; Z79.899 Other long term (current) drug therapy

== ENCOUNTER 2023-10-04 23:29 | Emergency (ER) | payer OTHER ==
[~2023-10-04] VITALS: Ht 172.7 cm; Wt 95.3 kg
[2023-10-05 03:18] LABS: APPEARANCE, URINE CLEAR (CLEAR); BACTERIA, URINE AUTO NEGATIVE (NEGATIVE); BILIRUBIN, URINE AUTO NEGATIVE (NEGATIVE); BLOOD, URINE BLOOD NEGATIVE (NEGATIVE); COLOR, URINE YELLOW (YELLOW); GLUCOSE, URINE (UA) AUTO NEGATIVE (NEGATIVE); KETONE, URINE AUTO NEGATIVE (NEGATIVE); LEUKOCYTE ESTERASE, URINE AUTO NEGATIVE (NEGATIVE); MUCUS, URINE SMALL (NEGATIVE); NITRITE, URINE AUTO NEGATIVE (NEGATIVE); PROTEIN, URINE AUTO NEGATIVE (NEGATIVE); RBC, URINE AUTO 0 /HPF (0-3); SPECIFIC GRAVITY URINE AUTO 1.009 (1.002-1.035); SQUAMOUS EPITHELIAL CELL UR AU 0 /HPF (0-6); WBC, URINE AUTO 0 /HPF (0-3)
[2023-10-05] MEDS ORDERED: FLOM0.4C39 PO (07:48)
[2023-10-05] MEDS: TAMSULOSIN 0.4 MG CAP PO ONE (07:58)
[2023-10-05] MEDS: IBUPROFEN 600MG TAB PO ONE (08:23)
[2023-10-05 09:07] VITALS: BP 154/92; TEMP 97.8; O2SAT 99
== END 2023-10-05 09:15 | disposition home or self-care (01) ==
LOC: M ED 23:29
DX: N40.1 Benign prostatic hyperplasia with lower urinary tract symptoms (principal); R39.12 Poor urinary stream; Z88.8 Allergy status to other drugs, medicaments and biological substances; Z91.010 Allergy to peanuts; Z79.84 Long term (current) use of oral hypoglycemic drugs; Z79.899 Other long term (current) drug therapy

== ENCOUNTER 2023-10-15 17:09 | Emergency (ER) | payer OTHER ==
[~2023-10-15] VITALS: Ht 172.7 cm; Wt 92.7 kg
[2023-10-15 19:54] LABS: BASO % 0.3 % (0.0-1.0); EOS # 0.1 10^3/uL (0.0-0.5); EOS % 1.3 % (0.0-3.0); HEMATOCRIT 41.5 % (42.0-52.0); HEMOGLOBIN 14.9 g/dl (13.5-17.5); LYMPH # 2.6 10^3/uL (1.5-5.0); LYMPH % 30.2 % (24.0-44.0); MEAN CORPUSCULAR HEMOGLOBIN 31.7 pg (27.0-33.0); MEAN CORPUSCULAR HGB CONC 35.9 g/dl (32.0-36.5); MEAN CORPUSCULAR VOLUME 88.3 fl (80.0-96.0); MONO # 0.7 10^3/uL (0.0-0.8); MONO % 8.1 % (2.0-8.0); NEUTROPHILS # 5.2 10^3/uL (1.5-8.5); NEUTROPHILS % 59.9 % (36.0-66.0); PLATELET COUNT, AUTOMATED 182 10^3/uL (150-450); WHITE BLOOD COUNT 8.7 10^3/uL (4.0-10.0)
[2023-10-15 20:10] LABS: LIPASE 76 U/L (12-53)
[2023-10-15 20:26] LABS: ALBUMIN 4.3 G/DL (3.2-5.2); ALKALINE PHOSPHATASE 101 U/L (46-116); ALT/SGPT 32 U/L (7.0-40); AST/SGOT 23 U/L (<34); BILIRUBIN,DIRECT 0.3 MG/DL (<0.4); BLOOD UREA NITROGEN 16 MG/DL (9-23); CALCIUM LEVEL 10.3 MG/DL (8.5-10.1); CARBON DIOXIDE LEVEL 20 MMOL/L (20-31); CHLORIDE LEVEL 106 MMOL/L (98-107); CREATININE FOR GFR 1.23 MG/DL (0.70-1.30); GLOMERULAR FILTRATION RATE > 60.0 (>56); GLUCOSE, FASTING 72 MG/DL (60-100); POTASSIUM SERUM 4.2 MMOL/L (3.5-5.1); SODIUM LEVEL 136 MMOL/L (136-145); TOTAL PROTEIN 7.5 G/DL (5.7-8.2)
[2023-10-15 20:51] VITALS: TEMP 98
[2023-10-16] MEDS: KETOROLAC 30 MG/ML 1ML VIAL IV ONE (01:35)
[2023-10-16] MEDS ORDERED: ISOVUE-370 76% 100ML VIAL As Ordered ONE (01:38)
[2023-10-16] MEDS: NS 1,000 ML IV ONE (03:50)
[2023-10-16 04:11] VITALS: BP 152/89; O2SAT 99
[2023-10-16] MEDS ORDERED: COLA100C5 PO (04:16)
[2023-10-16] MEDS: ACETAMINOPHEN TAB 650MG DOSE (2X325MG) PO ONE (04:44)
== END 2023-10-16 05:02 | disposition home or self-care (01) ==
LOC: M ED 17:09
DX: R10.9 Unspecified abdominal pain (principal); R91.1 Solitary pulmonary nodule; N28.1 Cyst of kidney, acquired; I10 Essential (primary) hypertension; E03.9 Hypothyroidism, unspecified; N18.31 Chronic kidney disease, stage 3a; K59.00 Constipation, unspecified; F25.0 Schizoaffective disorder, bipolar type; B18.2 Chronic viral hepatitis C; Z95.0 Presence of cardiac pacemaker; Z88.8 Allergy status to other drugs, medicaments and biological substances; Z91.010 Allergy to peanuts; Z91.048 Other nonmedicinal substance allergy status; Z79.811 Long term (current) use of aromatase inhibitors; Z79.4 Long term (current) use of insulin; Z79.899 Other long term (current) drug therapy
CPT/HCPCS: 74018; 74177; 80048; 80076; 83690; 85025; 96361; 96374; 99284; J1885; Q9967

== ENCOUNTER 2023-10-19 14:28 | Emergency (ER) | payer OTHER ==
[~2023-10-19] VITALS: Ht 172.7 cm; Wt 92.4 kg
[2023-10-19 16:01] LABS: BASO % 0.3 % (0.0-1.0); EOS # 0.1 10^3/uL (0.0-0.5); EOS % 0.9 % (0.0-3.0); HEMOGLOBIN 14.4 g/dl (13.5-17.5); LYMPH # 1.3 10^3/uL (1.5-5.0); LYMPH % 20.5 % (24.0-44.0); MEAN CORPUSCULAR HEMOGLOBIN 31.3 pg (27.0-33.0); MEAN CORPUSCULAR HGB CONC 34.3 g/dl (32.0-36.5); MEAN CORPUSCULAR VOLUME 91.3 fl (80.0-96.0); MONO # 0.6 10^3/uL (0.0-0.8); MONO % 8.6 % (2.0-8.0); NEUTROPHILS # 4.5 10^3/uL (1.5-8.5); NEUTROPHILS % 69.4 % (36.0-66.0); PLATELET COUNT, AUTOMATED 195 10^3/uL (150-450); WHITE BLOOD COUNT 6.5 10^3/uL (4.0-10.0)
[2023-10-19 18:10] LABS: ETHYL ALCOHOL (ETHANOL) < 0.003 % (0.000-0.010)
[2023-10-19 18:11] LABS: CPK CREATINE PHOSPHOKINASE 128 U/L (46-171)
[2023-10-19 18:12] LABS: SALICYLATE LEVEL < 3.0 MG/DL (<30)
[2023-10-19 18:14] LABS: ALBUMIN 4.1 G/DL (3.2-5.2); ALKALINE PHOSPHATASE 99 U/L (46-116); ALT/SGPT 35 U/L (7.0-40); AST/SGOT 23 U/L (<34); BILIRUBIN,DIRECT 0.2 MG/DL (<0.4); BILIRUBIN,TOTAL 0.6 MG/DL (0.3-1.2); BLOOD UREA NITROGEN 10 MG/DL (9-23); CALCIUM LEVEL 9.2 MG/DL (8.5-10.1); CARBON DIOXIDE LEVEL 21 MMOL/L (20-31); CHLORIDE LEVEL 112 MMOL/L (98-107); CK-MB VALUE MASS 1.6 NG/ML (<3.6); CREATININE FOR GFR 1.18 MG/DL (0.70-1.30); GLOMERULAR FILTRATION RATE > 60.0 (>56); GLUCOSE, FASTING 77 MG/DL (60-100); MB/CK RELATIVE INDEX 1.25 (< OR =4); POTASSIUM SERUM 3.7 MMOL/L (3.5-5.1); SODIUM LEVEL 140 MMOL/L (136-145); THYROID STIMULATING HORMONE 0.472 uIU/ML (0.55-4.78); TOTAL PROTEIN 7.1 G/DL (5.7-8.2)
[2023-10-19 18:29] LABS: OSMOLALITY SERUM 294 MOSM/KG (275-295)
[2023-10-19 20:17] VITALS: BP 165/97; TEMP 97.3; O2SAT 92
[2023-10-19 20:43] LABS: FREE T4 1.47 NG/DL (0.89-1.76)
== END 2023-10-19 20:25 | disposition home or self-care (01) ==
LOC: M ED 14:28
DX: R42 Dizziness and giddiness (principal); Z91.010 Allergy to peanuts; Z88.8 Allergy status to other drugs, medicaments and biological substances; Z79.84 Long term (current) use of oral hypoglycemic drugs; Z79.899 Other long term (current) drug therapy

== ENCOUNTER → 2023-10-25 | Outpatient (CLI) | payer OTHER ==
[2023-10-25 15:31] LABS: HEMATOCRIT 42.2 % (42.0-52.0); HEMOGLOBIN 14.4 g/dl (13.5-17.5); MEAN CORPUSCULAR HEMOGLOBIN 31.6 pg (27.0-33.0); MEAN CORPUSCULAR HGB CONC 34.1 g/dl (32.0-36.5); MEAN CORPUSCULAR VOLUME 92.7 fl (80.0-96.0); PLATELET COUNT, AUTOMATED 186 10^3/uL (150-450); RED BLOOD COUNT 4.55 10^6/uL (4.30-6.10); WHITE BLOOD COUNT 6.8 10^3/uL (4.0-10.0)
[2023-10-25 15:59] LABS: HEMOGLOBIN A1c 4.9 % (4.0-6.0)
[2023-10-25 16:01] LABS: ALBUMIN 4.1 G/DL (3.2-5.2); ALKALINE PHOSPHATASE 107 U/L (46-116); ALT/SGPT 35 U/L (7.0-40); AST/SGOT 18 U/L (<34); BILIRUBIN,TOTAL 0.6 MG/DL (0.3-1.2); BLOOD UREA NITROGEN 11 MG/DL (9-23); CALCIUM LEVEL 9.6 MG/DL (8.5-10.1); CARBON DIOXIDE LEVEL 25 MMOL/L (20-31); CHLORIDE LEVEL 111 MMOL/L (98-107); CREATININE FOR GFR 1.12 MG/DL (0.70-1.30); GLOMERULAR FILTRATION RATE > 60.0 (>56); GLUCOSE, FASTING 81 MG/DL (60-100); POTASSIUM SERUM 4.1 MMOL/L (3.5-5.1); SODIUM LEVEL 142 MMOL/L (136-145); TOTAL PROTEIN 7.2 G/DL (5.7-8.2)
[2023-10-25 16:02] LABS: PTH INTACT 34.1 PG/ML (18.5-88.0)
[2023-10-25 16:03] LABS: THYROID STIMULATING HORMONE 0.291 uIU/ML (0.55-4.78); VITAMIN B12 LEVEL 658 PG/ML (211-911)
== END ==
LOC: M PLALAB 14:13
PROVIDERS: ATTEND Family Medicine
DX: R26.81 Unsteadiness on feet (principal)

== ENCOUNTER → 2023-10-26 | Outpatient (REF) | payer OTHER | LOC: M SFHCPLAZ 10:53 | PROVIDERS: ATTEND Family Medicine | DX: R26.81 Unsteadiness on feet (principal) ==

== ENCOUNTER 2023-10-31 09:55 | Inpatient (IN) | payer OTHER, MEDICAID ==
[~2023-10-31] VITALS: Ht 172.7 cm; Wt 93.5 kg
[2023-10-31 11:49] LABS: BASO % 0.5 % (0.0-1.0); EOS # 0.2 10^3/uL (0.0-0.5); EOS % 2.9 % (0.0-3.0); HEMOGLOBIN 14.7 g/dl (13.5-17.5); LYMPH # 1.5 10^3/uL (1.5-5.0); LYMPH % 26.7 % (24.0-44.0); MEAN CORPUSCULAR HEMOGLOBIN 32.2 pg (27.0-33.0); MEAN CORPUSCULAR HGB CONC 34.2 g/dl (32.0-36.5); MEAN CORPUSCULAR VOLUME 94.1 fl (80.0-96.0); MONO # 0.4 10^3/uL (0.0-0.8); NEUTROPHILS # 3.5 10^3/uL (1.5-8.5); NEUTROPHILS % 62.5 % (36.0-66.0); PLATELET COUNT, AUTOMATED 166 10^3/uL (150-450); RED BLOOD COUNT 4.57 10^6/uL (4.30-6.10); WHITE BLOOD COUNT 5.6 10^3/uL (4.0-10.0)
[2023-10-31 12:10] LABS: ETHYL ALCOHOL (ETHANOL) 0.003 % (0.000-0.010)
[2023-10-31 12:12] LABS: ALKALINE PHOSPHATASE 106 U/L (46-116); ALT/SGPT 30 U/L (7.0-40); AST/SGOT 17 U/L (<34); BILIRUBIN,DIRECT 0.2 MG/DL (<0.4); BILIRUBIN,TOTAL 0.6 MG/DL (0.3-1.2); BLOOD UREA NITROGEN 12 MG/DL (9-23); CALCIUM LEVEL 9.4 MG/DL (8.5-10.1); CARBON DIOXIDE LEVEL 27 MMOL/L (20-31); CHLORIDE LEVEL 110 MMOL/L (98-107); GLOMERULAR FILTRATION RATE > 60.0 (>56); GLUCOSE, FASTING 93 MG/DL (60-100); POTASSIUM SERUM 3.9 MMOL/L (3.5-5.1); SALICYLATE LEVEL < 3.0 MG/DL (<30); SODIUM LEVEL 140 MMOL/L (136-145); TOTAL PROTEIN 7.1 G/DL (5.7-8.2)
[2023-10-31 12:15] LABS: THYROID STIMULATING HORMONE 0.049 uIU/ML (0.55-4.78)
[2023-10-31 12:16] LABS: CPK CREATINE PHOSPHOKINASE 43 U/L (46-171)
[2023-10-31 13:11] LABS: AMPHETAMINES LEVEL URINE NEGATIVE (NEGATIVE); BARBITURATES URINE NEGATIVE (NEGATIVE); BENZODIAZEPINES URINE NEGATIVE (NEGATIVE); COCAINE METABOLITE URINE NEGATIVE (NEGATIVE); METHADONE URINE NEGATIVE (NEGATIVE); OPIATES URINE NEGATIVE (NEGATIVE)
[2023-10-31 13:12] LABS: CANNABINOIDS URINE NEGATIVE (NEGATIVE); PHENCYCLIDINE URINE NEGATIVE (NEGATIVE)
[2023-10-31] MEDS ORDERED: DOCU100C16 PO (14:10)
[2023-10-31] MEDS ORDERED: ACET1TAB55 PO (14:19)
[2023-10-31] MEDS ORDERED: SILD50TA PO (14:19)
[2023-10-31] MEDS ORDERED: LEVO100T5 PO (14:19)
[2023-10-31] MEDS ORDERED: AMAN100T PO (14:19)
[2023-10-31] MEDS ORDERED: FLUT50SP33 NARES (14:19)
[2023-10-31] MEDS ORDERED: D200CAP3 PO (14:20)
[2023-10-31] MEDS ORDERED: HOME MED LIST COMPLETE! XX SCH (14:25)
[2023-10-31] MEDS ORDERED: MAALOX 30 ML SUSP *UDC PO PRN (16:00)
[2023-10-31] MEDS ORDERED: MOM 30ML SUSPENSION UDC PO PRN (16:00)
[2023-10-31] MEDS ORDERED: diphenhydrAMINE 25MG CAP PO PRN (16:00)
[2023-10-31] MEDS ORDERED: IBUPROFEN 400MG TAB PO PRN (16:00)
[2023-10-31 17:31] VITALS: BP 127/83; TEMP 97.8; O2SAT 96
[2023-10-31] MEDS: traZODone 50 MG TAB PO PRN (22:25)
[2023-11-01 06:26] VITALS: BP 128/76; TEMP 97.2; O2SAT 98
[2023-11-01] MEDS: MIRALAX *UNIT DOSE* 17GM PACKET PO SCH (09:32)
[2023-11-01] MEDS: TAMSULOSIN 0.4 MG CAP PO SCH (09:33)
[2023-11-01] MEDS: FINASTERIDE 5MG TAB PO SCH (09:33)
[2023-11-01] MEDS: DOCUSATE SODIUM 100MG CAPSULE PO SCH (09:33)
[2023-11-01] MEDS: VITAMIN D 1,000 INTERNATIONAL UNITS TABLET PO SCH (09:33)
[2023-11-01] MEDS: TOPIRAMATE (TopAMAX) 25 MG TAB PO SCH (09:33)
[2023-11-01] MEDS: FLUTICASONE PROP 0.05% NASAL SPRAY 16 GM (FLONASE) NARES SCH (09:34)
[2023-11-01] MEDS: LOSARTAN 50MG TABLET PO SCH (09:34)
[2023-11-01] MEDS: LEVOTHYROXINE 100MCG TABLET (0.1MG) PO SCH (09:34)
[2023-11-01] MEDS: AMANTADINE 100MG TABLET PO SCH (14:06)
[2023-11-01] MEDS: LIDOCAINE 5% (LIDODERM) PATCH TD SCH (14:40)
[2023-11-01 14:57] LABS: FREE T4 1.25 NG/DL (0.89-1.76)
[2023-11-01] MEDS: metFORMIN XR 500MG TAB *GLUCOPHAGE XR PO SCH (16:37)
[2023-11-01 16:53] VITALS: BP 133/82; TEMP 97.1; O2SAT 95
[2023-11-01] MEDS: OLANZapine 10 MG TAB PO SCH (21:53)
[2023-11-01] MEDS: ACETAMINOPHEN TAB 650MG DOSE (2X325MG) PO PRN (21:58)
[2023-11-02] MEDS: LEVOTHYROXINE 75MCG TABLET (0.075MG) PO SCH (06:05)
[2023-11-02 06:37] VITALS: BP 145/77; TEMP 97.1; O2SAT 97
[2023-11-02] MEDS: AMANTADINE 100MG TABLET PO SCH (08:25)
[2023-11-02] MEDS: FLUoxetine 20MG CAP PO SCH (08:26)
[2023-11-02] MEDS ORDERED: FLUoxetine 20MG CAP PO SCH (09:00)
[2023-11-02 15:57] VITALS: BP 133/92; TEMP 97.1; O2SAT 100
[2023-11-02] MEDS: SAMIDORPHAN PO SCH (22:15)
[2023-11-02] MEDS: OLANZAPINE PO SCH (22:15)
[2023-11-03 08:46] VITALS: BP 128/81
[2023-11-03 09:55] VITALS: BP 139/93; TEMP 96.9; O2SAT 97
[2023-11-03 15:34] VITALS: BP 135/83; TEMP 96.3; O2SAT 98
[2023-11-03] MEDS: traZODone 50 MG TAB PO PRN (21:59)
[2023-11-04 06:26] VITALS: BP 147/85; TEMP 97.5; O2SAT 98
[2023-11-04 15:32] VITALS: BP 129/74; TEMP 97.5; O2SAT 100
[2023-11-05 06:38] VITALS: BP 138/80; TEMP 97; O2SAT 98
[2023-11-05 06:40] VITALS: BP 138/80; TEMP 97; O2SAT 98
[2023-11-05] MEDS: CEPACOL LOZENGE PO PRN (11:40)
[2023-11-05 15:41] VITALS: BP 108/80; TEMP 97.2; O2SAT 100
[2023-11-05] MEDS: PILL CUTTER 1 EACH XX PRN (21:54)
[2023-11-06 06:09] VITALS: BP 132/77; TEMP 96.9; O2SAT 99
[2023-11-06 15:40] VITALS: BP 126/84; TEMP 97; O2SAT 96
[2023-11-07 06:39] VITALS: BP 175/83; TEMP 97.3; O2SAT 100
[2023-11-07] MEDS: FLUoxetine 20MG CAP PO SCH (08:12)
[2023-11-07 14:27] VITALS: BP 129/70; TEMP 97.2; O2SAT 98
[2023-11-07] MEDS: TOPIRAMATE (TopAMAX) 25 MG TAB PO SCH (15:00)
[2023-11-08 06:12] VITALS: BP 131/76; TEMP 97.1; O2SAT 97
[2023-11-08 08:06] LABS: THYROID STIMULATING HORMONE 0.296 uIU/ML (0.55-4.78); THYROXINE (T4) 5.4 UG/DL (4.5-10.9)
[2023-11-08 08:07] LABS: FREE THYROXINE INDEX 2.5 % (1.4-3.8); T UPTAKE 46.2 % (22.5-37.0)
[2023-11-08 08:55] VITALS: BP 112/63
[2023-11-08 15:23] VITALS: BP 122/81; TEMP 97.8; O2SAT 99
[2023-11-08] MEDS: HYDROCORTISONE 1% CREAM 30GM TOP SCH (22:08)
[2023-11-09 06:28] VITALS: BP 116/75; TEMP 98; O2SAT 98
[2023-11-09 15:31] VITALS: BP 129/76; TEMP 97.7; O2SAT 97
[2023-11-09] MEDS: hydrOXYzine 50 MG TAB PO PRN (22:00)
[2023-11-10 06:29] VITALS: BP 137/61; TEMP 97
[2023-11-10 16:14] VITALS: BP 123/72; TEMP 97; O2SAT 100
[2023-11-11 06:11] VITALS: BP 135/95; TEMP 97.6; O2SAT 96
[2023-11-11 16:40] VITALS: BP 140/88; TEMP 97.2; O2SAT 98
[2023-11-12 06:29] VITALS: BP 117/76; TEMP 97.6; O2SAT 96
[2023-11-12 08:15] VITALS: BP 121/78
[2023-11-12 17:08] VITALS: BP 158/86; TEMP 97; O2SAT 97
[2023-11-13 06:21] VITALS: BP 114/64; TEMP 97.6; O2SAT 95
[2023-11-13 15:36] VITALS: BP 137/89; TEMP 97; O2SAT 100
[2023-11-14 06:13] VITALS: BP 143/81; TEMP 97; O2SAT 98
[2023-11-14] MEDS ORDERED: TOPA1TAB PO (08:50)
[2023-11-14] MEDS ORDERED: FLUO-365 PO (08:50)
[2023-11-14 09:03] VITALS: BP 133/64
== END 2023-11-14 13:00 | disposition home or self-care (01) | DRG 750 ==
LOC: M ED 09:55 → M ED INP 16:24 → M PSY 16:58
PROVIDERS: ADMIT Psychiatry & Neurology Child & Adolescent Psychiatry; ATTEND Psychiatry & Neurology Psychiatry
DX: F25.0 Schizoaffective disorder, bipolar type (principal); I49.5 Sick sinus syndrome; N18.30 Chronic kidney disease, stage 3 unspecified; F71 Moderate intellectual disabilities; I12.9 Hypertensive chronic kidney disease with stage 1 through stage 4 chronic kidney disease, or unspecified chronic kidney disease; Z87.820 Personal history of traumatic brain injury; E66.9 Obesity, unspecified; Z68.36 Body mass index [BMI] 36.0-36.9, adult; G47.33 Obstructive sleep apnea (adult) (pediatric); N40.1 Benign prostatic hyperplasia with lower urinary tract symptoms; K59.00 Constipation, unspecified; E03.9 Hypothyroidism, unspecified; N52.9 Male erectile dysfunction, unspecified; Z95.0 Presence of cardiac pacemaker; M47.812 Spondylosis without myelopathy or radiculopathy, cervical region; Z79.890 Hormone replacement therapy; Z79.899 Other long term (current) drug therapy; Z88.8 Allergy status to other drugs, medicaments and biological substances; Z91.018 Allergy to other foods; Z91.048 Other nonmedicinal substance allergy status; Z91.010 Allergy to peanuts

== ENCOUNTER 2023-12-03 18:17 | Inpatient (IN) | payer MEDICAID, OTHER ==
[~2023-12-03] VITALS: Ht 172.7 cm; Wt 93.5 kg
[~2023-12-03 18:17] MED LIST changes: +D200CAP3 PO; +DOCU100C16 PO; +FLUT50SP33 NARES; +LEVO100T5 PO; +LITH450T11 PO; -LITH45TASA PO; +NAPR-1405 PO; -NAPR500T6 PO; -OLAN2.5T25 PO; +OLAN2.5T53 PO; +SILD50TA PO
[2023-12-03 19:16] LABS: HEMATOCRIT 44.3 % (42.0-52.0); HEMOGLOBIN 14.8 g/dl (13.5-17.5); MEAN CORPUSCULAR HEMOGLOBIN 31.2 pg (27.0-33.0); MEAN CORPUSCULAR HGB CONC 33.4 g/dl (32.0-36.5); MEAN CORPUSCULAR VOLUME 93.5 fl (80.0-96.0); PLATELET COUNT, AUTOMATED 182 10^3/uL (150-450); RED BLOOD COUNT 4.74 10^6/uL (4.30-6.10); WHITE BLOOD COUNT 7.3 10^3/uL (4.0-10.0)
[2023-12-03 19:38] LABS: AMPHETAMINES LEVEL URINE NEGATIVE (NEGATIVE); BARBITURATES URINE NEGATIVE (NEGATIVE); COCAINE METABOLITE URINE NEGATIVE (NEGATIVE); METHADONE URINE NEGATIVE (NEGATIVE); OPIATES URINE NEGATIVE (NEGATIVE)
[2023-12-03 19:39] LABS: BENZODIAZEPINES URINE NEGATIVE (NEGATIVE); CANNABINOIDS URINE NEGATIVE (NEGATIVE); PHENCYCLIDINE URINE NEGATIVE (NEGATIVE)
[2023-12-03 19:42] LABS: ETHYL ALCOHOL (ETHANOL) 0.004 % (0.000-0.010)
[2023-12-03 19:43] LABS: SALICYLATE LEVEL < 3.0 MG/DL (<30)
[2023-12-03 19:44] LABS: ALBUMIN 3.9 G/DL (3.2-5.2); ALKALINE PHOSPHATASE 115 U/L (46-116); ALT/SGPT 20 U/L (7.0-40); AST/SGOT 10 U/L (<34); BILIRUBIN,DIRECT 0.2 MG/DL (<0.4); BILIRUBIN,TOTAL 0.5 MG/DL (0.3-1.2); BLOOD UREA NITROGEN 17 MG/DL (9-23); CALCIUM LEVEL 9.4 MG/DL (8.5-10.1); CARBON DIOXIDE LEVEL 22 MMOL/L (20-31); CHLORIDE LEVEL 110 MMOL/L (98-107); CREATININE FOR GFR 1.11 MG/DL (0.70-1.30); GLOMERULAR FILTRATION RATE > 60.0 (>56); GLUCOSE, FASTING 90 MG/DL (60-100); POTASSIUM SERUM 3.8 MMOL/L (3.5-5.1); SODIUM LEVEL 139 MMOL/L (136-145); TOTAL PROTEIN 7.2 G/DL (5.7-8.2)
[2023-12-03 20:27] LABS: THYROID STIMULATING HORMONE 0.394 uIU/ML (0.55-4.78)
[2023-12-03] MEDS ORDERED: OLAN1TAB PO (20:48)
[2023-12-03] MEDS ORDERED: HOME MED LIST COMPLETE! XX SCH (20:50)
[2023-12-03] MEDS ORDERED: IBUPROFEN 400MG TAB PO PRN (21:25)
[2023-12-03] MEDS ORDERED: MAALOX 30 ML SUSP *UDC PO PRN (21:25)
[2023-12-03] MEDS ORDERED: MOM 30ML SUSPENSION UDC PO PRN (21:25)
[2023-12-03] MEDS: traZODone 50 MG TAB PO PRN (22:54)
[2023-12-03] MEDS: ACETAMINOPHEN TAB 650MG DOSE (2X325MG) PO PRN (22:54)
[2023-12-03 23:09] VITALS: BP 140/76; TEMP 97.2; O2SAT 70
[2023-12-03 23:10] VITALS: BP 140/76; TEMP 97.2; O2SAT 70
[2023-12-04] MEDS: diphenhydrAMINE 25MG CAP PO PRN (04:43)
[2023-12-04 06:28] VITALS: BP 124/77; TEMP 96.7; O2SAT 96
[2023-12-04] MEDS ORDERED: hydrOXYzine 50 MG TAB PO PRN (10:00)
[2023-12-04] MEDS ORDERED: ACETAMINOPHEN 325 MG TAB PO PRN (10:00)
[2023-12-04] MEDS: TOPIRAMATE (TopAMAX) 25 MG TAB PO SCH (10:58)
[2023-12-04] MEDS: AMANTADINE 100MG TABLET PO SCH ×2 (10:59→15:13)
[2023-12-04] MEDS: PROPRANOLOL 10 MG TAB PO SCH (10:59)
[2023-12-04] MEDS: FLUoxetine 10 MG CAP PO SCH (10:59)
[2023-12-04] MEDS: LOSARTAN 50MG TABLET PO SCH (10:59)
[2023-12-04] MEDS: DOCUSATE SODIUM 100MG CAPSULE PO SCH (10:59)
[2023-12-04] MEDS: LEVOTHYROXINE 88MCG TABLET (0.088 MG) PO SCH (10:59)
[2023-12-04 11:03] VITALS: BP 150/95
[2023-12-04 15:30] VITALS: BP 130/92; TEMP 98.2; O2SAT 100
[2023-12-04] MEDS: metFORMIN XR 500MG TAB *GLUCOPHAGE XR PO SCH (17:44)
[2023-12-04] MEDS: TAMSULOSIN 0.4 MG CAP PO SCH (17:44)
[2023-12-04] MEDS: traZODone 50 MG TAB PO SCH (21:51)
[2023-12-04] MEDS: OLANZapine 5 MG TAB PO SCH (21:51)
[2023-12-05 06:23] VITALS: BP 148/92; TEMP 97.8; O2SAT 98
[2023-12-05 07:45] VITALS: BP 116/75
[2023-12-05] MEDS ORDERED: FLUoxetine 20MG CAP PO SCH (09:00)
[2023-12-05] MEDS ORDERED: FLUoxetine 10 MG CAP PO SCH (09:00)
[2023-12-05 17:49] VITALS: BP 141/82; TEMP 97.1
[2023-12-06 06:08] VITALS: BP 120/92; TEMP 97.5; O2SAT 96
[2023-12-06] MEDS ORDERED: OLAN1TAB16 PO (08:13)
[2023-12-06] MEDS ORDERED: PROZ10CA7 PO (08:13)
[2023-12-06 08:24] VITALS: BP 119/79
[2023-12-06 08:28] VITALS: BP 119/79
== END 2023-12-06 11:52 | disposition home or self-care (01) | DRG 750 ==
LOC: M ED 18:17 → M ED INP 21:23 → M PSY 22:34
PROVIDERS: ADMIT Psychiatry & Neurology Psychiatry; ATTEND Psychiatry & Neurology Psychiatry
DX: F25.0 Schizoaffective disorder, bipolar type (principal); D69.6 Thrombocytopenia, unspecified; R45.851 Suicidal ideations; F71 Moderate intellectual disabilities; N18.31 Chronic kidney disease, stage 3a; I12.9 Hypertensive chronic kidney disease with stage 1 through stage 4 chronic kidney disease, or unspecified chronic kidney disease; F41.9 Anxiety disorder, unspecified; E66.9 Obesity, unspecified; G47.33 Obstructive sleep apnea (adult) (pediatric); N40.1 Benign prostatic hyperplasia with lower urinary tract symptoms; E03.9 Hypothyroidism, unspecified; N52.9 Male erectile dysfunction, unspecified; M47.812 Spondylosis without myelopathy or radiculopathy, cervical region; Z79.84 Long term (current) use of oral hypoglycemic drugs; Z79.899 Other long term (current) drug therapy; Z87.820 Personal history of traumatic brain injury; Z95.0 Presence of cardiac pacemaker; Z79.890 Hormone replacement therapy; Z88.8 Allergy status to other drugs, medicaments and biological substances; Z91.018 Allergy to other foods; Z68.31 Body mass index [BMI] 31.0-31.9, adult

== ENCOUNTER 2023-12-16 11:48 | Emergency (ER) | payer MEDICAID, OTHER ==
[~2023-12-16] VITALS: Ht 172.7 cm; Wt 93.5 kg
[~2023-12-16 11:48] MED LIST changes: +OLAN1TAB PO
[2023-12-16 12:30] LABS: HEMATOCRIT 41.7 % (42.0-52.0); HEMOGLOBIN 14.4 g/dl (13.5-17.5); MEAN CORPUSCULAR HEMOGLOBIN 32.1 pg (27.0-33.0); MEAN CORPUSCULAR HGB CONC 34.5 g/dl (32.0-36.5); MEAN CORPUSCULAR VOLUME 93.1 fl (80.0-96.0); PLATELET COUNT, AUTOMATED 168 10^3/uL (150-450); RED BLOOD COUNT 4.48 10^6/uL (4.30-6.10); WHITE BLOOD COUNT 6.2 10^3/uL (4.0-10.0)
[2023-12-16 12:52] LABS: AMPHETAMINES LEVEL URINE NEGATIVE (NEGATIVE); BARBITURATES URINE NEGATIVE (NEGATIVE); BENZODIAZEPINES URINE NEGATIVE (NEGATIVE); COCAINE METABOLITE URINE NEGATIVE (NEGATIVE); METHADONE URINE NEGATIVE (NEGATIVE); OPIATES URINE NEGATIVE (NEGATIVE)
[2023-12-16 12:53] LABS: CANNABINOIDS URINE NEGATIVE (NEGATIVE); PHENCYCLIDINE URINE NEGATIVE (NEGATIVE)
[2023-12-16 12:55] LABS: ETHYL ALCOHOL (ETHANOL) 0.006 % (0.000-0.010)
[2023-12-16 12:57] LABS: SALICYLATE LEVEL < 3.0 MG/DL (<30)
[2023-12-16 13:00] LABS: ALBUMIN 3.8 G/DL (3.2-5.2); ALKALINE PHOSPHATASE 113 U/L (46-116); ALT/SGPT 21 U/L (7.0-40); AST/SGOT 12 U/L (<34); BILIRUBIN,DIRECT 0.1 MG/DL (<0.4); BILIRUBIN,TOTAL 0.4 MG/DL (0.3-1.2); BLOOD UREA NITROGEN 17 MG/DL (9-23); CALCIUM LEVEL 9.4 MG/DL (8.5-10.1); CARBON DIOXIDE LEVEL 21 MMOL/L (20-31); CHLORIDE LEVEL 112 MMOL/L (98-107); CREATININE FOR GFR 1.13 MG/DL (0.70-1.30); GLOMERULAR FILTRATION RATE > 60.0 (>56); GLUCOSE, FASTING 99 MG/DL (60-100); SODIUM LEVEL 140 MMOL/L (136-145); THYROID STIMULATING HORMONE 0.638 uIU/ML (0.55-4.78); TOTAL PROTEIN 7.1 G/DL (5.7-8.2)
[2023-12-16 14:45] VITALS: BP 152/93; TEMP 97.6; O2SAT 97
== END 2023-12-16 14:49 | disposition home or self-care (01) ==
LOC: EDBD 11:48 → M ED 11:48
DX: F43.20 Adjustment disorder, unspecified (principal); F25.0 Schizoaffective disorder, bipolar type; I10 Essential (primary) hypertension; K59.00 Constipation, unspecified; Z88.8 Allergy status to other drugs, medicaments and biological substances; Z91.010 Allergy to peanuts; Z79.1 Long term (current) use of non-steroidal anti-inflammatories (NSAID); Z79.811 Long term (current) use of aromatase inhibitors; Z79.4 Long term (current) use of insulin; Z79.899 Other long term (current) drug therapy; Z95.0 Presence of cardiac pacemaker

== ENCOUNTER 2023-12-27 17:06 | Emergency (ER) | payer OTHER ==
[~2023-12-27] VITALS: Ht 172.7 cm; Wt 90.5 kg
[2023-12-27 17:15] VITALS: BP 120/91; TEMP 96.3; O2SAT 98
[2023-12-27] MEDS ORDERED: QUET100T2 PO (18:06)
[2023-12-27] MEDS ORDERED: QUET50TA4 PO (18:06)
[2023-12-27] MEDS ORDERED: BENZ200C70 PO (19:06)
[2023-12-27] MEDS ORDERED: IBUP-1022 PO (19:06)
== END 2023-12-27 19:16 | disposition home or self-care (01) ==
LOC: M ED 17:06
DX: R05.9 Cough, unspecified (principal); B34.1 Enterovirus infection, unspecified; N40.0 Benign prostatic hyperplasia without lower urinary tract symptoms; E03.9 Hypothyroidism, unspecified; F25.9 Schizoaffective disorder, unspecified; Z88.8 Allergy status to other drugs, medicaments and biological substances; Z91.010 Allergy to peanuts; Z79.1 Long term (current) use of non-steroidal anti-inflammatories (NSAID); Z79.84 Long term (current) use of oral hypoglycemic drugs; Z79.899 Other long term (current) drug therapy

== ENCOUNTER → 2024-01-10 | Outpatient (CLI) | payer OTHER ==
[~2024-01-10] MED LIST changes: +BENZ200C70 PO; +QUET50TA4 PO
== END ==
LOC: M PLAIMG 11:25
PROVIDERS: ATTEND Family Medicine
DX: R05.1 Acute cough (principal)

== ENCOUNTER → 2024-01-10 | Outpatient (REF) | payer OTHER | LOC: M SFHCPLAZ 13:31 | PROVIDERS: ATTEND Family Medicine | DX: E03.9 Hypothyroidism, unspecified (principal); C84.A0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, unspecified, unspecified site; E55.9 Vitamin D deficiency, unspecified; Z12.5 Encounter for screening for malignant neoplasm of prostate; R73.01 Impaired fasting glucose; E78.2 Mixed hyperlipidemia ==

== ENCOUNTER → 2024-01-18 | Outpatient (REF) | payer OTHER | LOC: M SFHCPLAZ 10:55 | DX: I10 Essential (primary) hypertension (principal); E78.2 Mixed hyperlipidemia ==

== ENCOUNTER → 2024-01-18 | Outpatient (CLI) | payer OTHER ==
[2024-01-18 14:21] LABS: HEMATOCRIT 42.4 % (42.0-52.0); MEAN CORPUSCULAR HEMOGLOBIN 31.6 pg (27.0-33.0); MEAN CORPUSCULAR VOLUME 95.7 fl (80.0-96.0); PLATELET COUNT, AUTOMATED 163 10^3/uL (150-450); RED BLOOD COUNT 4.43 10^6/uL (4.30-6.10); WHITE BLOOD COUNT 6.4 10^3/uL (4.0-10.0)
[2024-01-18 14:54] LABS: CHOLESTEROL RISK RATIO 3.57 (<5); HDL CHOLESTEROL 47.5 MG/DL (>40); LDL CHOLESTEROL 96.7 MG/DL (<100); NON-HDL-C 122.5 MG/DL
== END ==
LOC: M PLALAB 11:07
DX: I10 Essential (primary) hypertension (principal); E78.2 Mixed hyperlipidemia

== ENCOUNTER → 2024-01-21 | Outpatient (CLI) | payer OTHER | LOC: M PLAIMG 12:24 | PROVIDERS: ATTEND Registered Nurse | DX: I11.9 Hypertensive heart disease without heart failure (principal) ==

== ENCOUNTER 2024-01-23 11:15 | Emergency (ER) | payer MEDICAID, OTHER ==
[~2024-01-23] VITALS: Ht 172.7 cm; Wt 92.0 kg
[2024-01-23 13:23] VITALS: BP 125/83; TEMP 96.2; O2SAT 100
[2024-01-23] MEDS ORDERED: ROBILIQ13 PO (14:07)
[2024-02-05] MEDS ORDERED: TRAZ-257 PO (13:29)
[2024-02-05] MEDS ORDERED: NAPR-1405 PO (13:29)
[2024-02-05] MEDS ORDERED: MUCI1TAB16 PO (13:29)
== END 2024-01-23 14:19 | disposition home or self-care (01) ==
LOC: M ED 11:15
DX: R05.9 Cough, unspecified (principal); E03.9 Hypothyroidism, unspecified; F41.9 Anxiety disorder, unspecified; Z88.8 Allergy status to other drugs, medicaments and biological substances; Z79.1 Long term (current) use of non-steroidal anti-inflammatories (NSAID); Z79.84 Long term (current) use of oral hypoglycemic drugs; Z79.899 Other long term (current) drug therapy

== ENCOUNTER 2024-02-18 08:01 | Day surgery (SDC) | payer MEDICAID, OTHER ==
[~2024-02-18] VITALS: Ht 172.7 cm; Wt 95.3 kg
[~2024-02-18 08:01] MED LIST changes: +MUCI1TAB16 PO; +ROBILIQ13 PO
[2024-02-18] MEDS ORDERED: propofoL 200 MG/20 ML VIAL As Ordered ONE (10:28)
[2024-02-18 10:44] VITALS: TEMP 97
[2024-02-18 11:19] VITALS: BP 156/100; O2SAT 96
== END 2024-02-18 11:25 | disposition home or self-care (01) ==
LOC: M OPP 08:01
PROVIDERS: ATTEND Internal Medicine Gastroenterology
DX: Z12.11 Encounter for screening for malignant neoplasm of colon (principal); D12.0 Benign neoplasm of cecum; D12.5 Benign neoplasm of sigmoid colon; K57.30 Diverticulosis of large intestine without perforation or abscess without bleeding; K64.8 Other hemorrhoids; I10 Essential (primary) hypertension; E11.9 Type 2 diabetes mellitus without complications; E03.9 Hypothyroidism, unspecified; M19.90 Unspecified osteoarthritis, unspecified site; F41.9 Anxiety disorder, unspecified; F31.9 Bipolar disorder, unspecified; G43.909 Migraine, unspecified, not intractable, without status migrainosus; G47.30 Sleep apnea, unspecified; E78.5 Hyperlipidemia, unspecified; E55.9 Vitamin D deficiency, unspecified; K59.09 Other constipation; Z87.820 Personal history of traumatic brain injury; Z95.0 Presence of cardiac pacemaker; Z85.830 Personal history of malignant neoplasm of bone; Z92.21 Personal history of antineoplastic chemotherapy; Z92.3 Personal history of irradiation; Z88.8 Allergy status to other drugs, medicaments and biological substances; Z91.018 Allergy to other foods; Z79.51 Long term (current) use of inhaled steroids; Z79.84 Long term (current) use of oral hypoglycemic drugs; Z79.890 Hormone replacement therapy; Z79.899 Other long term (current) drug therapy; Z80.1 Family history of malignant neoplasm of trachea, bronchus and lung

== ENCOUNTER → 2024-03-04 | Outpatient (CLI) | payer OTHER ==
[~2024-03-04] MED LIST changes: +BARIUM SULFATE 700 MG TABLET (E-Z-DISK) As Ordered ONE; +E-Z-PAQUE 96% w/w SUSP 176GM BTL As Ordered ONE; +VARIBAR NECTAR 40% w/v 240ML SUSP BTL As Ordered ONE; +VARIBAR PUDDING 40% w/v 230ML TUBE As Ordered ONE
== END ==
LOC: M RAD 12:29
PROVIDERS: ATTEND Family Medicine
DX: R13.12 Dysphagia, oropharyngeal phase (principal)

== ENCOUNTER 2024-05-14 03:36 | Inpatient (IN) | payer MEDICAID, OTHER ==
[~2024-05-14] VITALS: Ht 172.7 cm; Wt 91.8 kg
[~2024-05-14 03:36] MED LIST changes: -BARIUM SULFATE 700 MG TABLET (E-Z-DISK) As Ordered ONE; -E-Z-PAQUE 96% w/w SUSP 176GM BTL As Ordered ONE; -VARIBAR NECTAR 40% w/v 240ML SUSP BTL As Ordered ONE; -VARIBAR PUDDING 40% w/v 230ML TUBE As Ordered ONE
[2024-05-14 04:29] LABS: HEMATOCRIT 42.7 % (42.0-52.0); HEMOGLOBIN 14.7 g/dl (13.5-17.5); MEAN CORPUSCULAR HEMOGLOBIN 31.6 pg (27.0-33.0); MEAN CORPUSCULAR HGB CONC 34.4 g/dl (32.0-36.5); MEAN CORPUSCULAR VOLUME 91.8 fl (80.0-96.0); PLATELET COUNT, AUTOMATED 188 10^3/uL (150-450); RED BLOOD COUNT 4.65 10^6/uL (4.30-6.10); WHITE BLOOD COUNT 8.3 10^3/uL (4.0-10.0)
[2024-05-14 04:52] LABS: ETHYL ALCOHOL (ETHANOL) 0.006 % (0.000-0.010)
[2024-05-14 04:53] LABS: SALICYLATE LEVEL < 3.0 MG/DL (<30)
[2024-05-14 04:54] LABS: ALKALINE PHOSPHATASE 102 U/L (40-129); ALT/SGPT 25 U/L (7.0-40); AST/SGOT 18 U/L (<34); BILIRUBIN,DIRECT 0.2 MG/DL (<0.4); BILIRUBIN,TOTAL 0.6 MG/DL (0.3-1.2); BLOOD UREA NITROGEN 16 MG/DL (9-23); CALCIUM LEVEL 9.3 MG/DL (8.5-10.1); CARBON DIOXIDE LEVEL 23 MMOL/L (20-31); CHLORIDE LEVEL 109 MMOL/L (98-107); CREATININE FOR GFR 1.19 MG/DL (0.70-1.30); GLOMERULAR FILTRATION RATE > 60.0 (>56); GLUCOSE, FASTING 82 MG/DL (60-100); SODIUM LEVEL 143 MMOL/L (136-145); TOTAL PROTEIN 7.4 G/DL (5.7-8.2)
[2024-05-14 04:56] LABS: THYROID STIMULATING HORMONE 2.798 uIU/ML (0.55-4.78)
[2024-05-14 05:15] LABS: AMPHETAMINES LEVEL URINE NEGATIVE (NEGATIVE); BARBITURATES URINE NEGATIVE (NEGATIVE); BENZODIAZEPINES URINE NEGATIVE (NEGATIVE); CANNABINOIDS URINE NEGATIVE (NEGATIVE); COCAINE METABOLITE URINE NEGATIVE (NEGATIVE); METHADONE URINE NEGATIVE (NEGATIVE); OPIATES URINE NEGATIVE (NEGATIVE); PHENCYCLIDINE URINE NEGATIVE (NEGATIVE)
[2024-05-14 14:18] VITALS: BP 135/79; TEMP 96.9; O2SAT 99
[2024-05-14] MEDS ORDERED: traZODone 50 MG TAB PO PRN (15:55)
[2024-05-14] MEDS ORDERED: MIRALAX *UNIT DOSE* 17GM PACKET PO PRN (16:00)
[2024-05-14] MEDS ORDERED: traZODone 100 MG TAB PO PRN (16:00)
[2024-05-14] MEDS ORDERED: HOME MED LIST COMPLETE! XX SCH (16:00)
[2024-05-14] MEDS ORDERED: PROZ20CA11 PO (16:00)
[2024-05-14] MEDS ORDERED: ACETAMINOPHEN 325 MG TAB PO PRN (16:00)
[2024-05-14] MEDS: TOPIRAMATE (TopAMAX) 25 MG TAB PO SCH (17:11)
[2024-05-14] MEDS: metFORMIN XR 500MG TAB *GLUCOPHAGE XR PO SCH (17:11)
[2024-05-14] MEDS: LEVOTHYROXINE 88MCG TABLET (0.088 MG) PO SCH (17:12)
[2024-05-14] MEDS: FINASTERIDE 5MG TAB PO SCH (17:13)
[2024-05-14] MEDS: DOCUSATE SODIUM 100MG CAPSULE PO SCH (17:14)
[2024-05-14] MEDS: FLUTICASONE PROP 0.05% NASAL SPRAY 16 GM (FLONASE) NARES SCH (17:18)
[2024-05-14] MEDS: PROPRANOLOL 10 MG TAB PO SCH (17:19)
[2024-05-14] MEDS: AMANTADINE 100MG TABLET PO SCH (18:00)
[2024-05-14] MEDS: TAMSULOSIN 0.4 MG CAP PO SCH (21:52)
[2024-05-14] MEDS: LOSARTAN 50MG TABLET PO SCH (21:53)
[2024-05-14] MEDS: OLANZapine ORAL DISINTEGRATING TAB 5MG PO PRN (22:03)
[2024-05-14] MEDS: LACTIC ACID 12% LOTION 225 GM BTL TOP SCH (22:13)
[2024-05-15 06:34] VITALS: BP 133/80; TEMP 97.3; O2SAT 98
[2024-05-15] MEDS: VITAMIN D 1,000 INTERNATIONAL UNITS TABLET PO SCH (08:48)
[2024-05-15] MEDS: AMANTADINE 100MG TABLET PO SCH (08:48)
[2024-05-15] MEDS: QUEtiapine FUMARATE 50MG TAB PO SCH (08:49)
[2024-05-15] MEDS: FLUoxetine 20MG CAP PO SCH (08:49)
[2024-05-15] MEDS: ACETAMINOPHEN 325 MG TAB PO PRN (08:53)
[2024-05-15 15:30] VITALS: BP 112/89; TEMP 97.6; O2SAT 99
[2024-05-15 15:39] VITALS: BP 116/84
[2024-05-15] MEDS: QUEtiapine FUMARATE 100 MG TAB PO SCH (21:50)
[2024-05-16 06:53] VITALS: BP 135/75; TEMP 96.7; O2SAT 100
[2024-05-16 07:11] LABS: CHOLESTEROL RISK RATIO 2.94 (<5); HDL CHOLESTEROL 57.7 MG/DL (>40); LDL CHOLESTEROL 83.3 MG/DL (<100); NON-HDL-C 112.3 MG/DL
[2024-05-16 15:12] VITALS: BP 133/77; TEMP 97.6; O2SAT 100
[2024-05-16] MEDS: IBUPROFEN 400MG TAB PO PRN (23:00)
[2024-05-17 06:33] VITALS: BP 104/60; TEMP 97.6; O2SAT 99
[2024-05-17 15:28] VITALS: BP 116/74; TEMP 97.7; O2SAT 100
[2024-05-18 06:48] VITALS: BP 129/89; TEMP 97.3; O2SAT 98
[2024-05-18 15:34] VITALS: BP 121/77; TEMP 97.2; O2SAT 96
[2024-05-19 09:11] VITALS: BP 122/84
[2024-05-19] MEDS ORDERED: ONDANSETRON 4MG TAB PO PRN (11:35)
[2024-05-19 17:23] VITALS: BP 124/69; TEMP 97.3; O2SAT 96
[2024-05-20 07:04] VITALS: BP 102/66; TEMP 97; O2SAT 95
[2024-05-20 16:02] VITALS: BP 122/90; TEMP 97.9; O2SAT 97
[2024-05-20] MEDS: LOPERAMIDE 2 MG CAPLET PO PRN (17:47)
[2024-05-21 06:35] VITALS: BP 103/70; TEMP 97.4; O2SAT 95
[2024-05-21 15:15] VITALS: BP 115/74; TEMP 97.4; O2SAT 97
[2024-05-21] MEDS: MOM 30ML SUSPENSION UDC PO PRN (21:59)
[2024-05-22 06:26] VITALS: BP 110/70; TEMP 97.8; O2SAT 96
[2024-05-22] MEDS ORDERED: ONDA-83 PO (06:53)
[2024-05-22] MEDS ORDERED: OLAN5ZYD PO (06:53)
[2024-05-22] MEDS ORDERED: PROZ20CA11 PO (06:53)
[2024-05-22] MEDS ORDERED: LOPE2CA PO (06:53)
[2024-05-22] MEDS ORDERED: QUET50TA4 PO (06:55)
[2024-05-22] MEDS ORDERED: QUET100T2 PO (06:55)
[2024-05-22 08:51] VITALS: BP 110/70
[2024-05-22] MEDS ORDERED: OLAN1TAB16 PO (11:55)
== END 2024-05-22 11:16 | disposition home or self-care (01) | DRG 750 ==
LOC: M ED 03:36 → M ED INP 12:42 → M PSY 13:53
PROVIDERS: ADMIT Psychiatry & Neurology Psychiatry; ATTEND Psychiatry & Neurology Psychiatry
DX: F25.0 Schizoaffective disorder, bipolar type (principal); D69.6 Thrombocytopenia, unspecified; I49.5 Sick sinus syndrome; R45.851 Suicidal ideations; N18.30 Chronic kidney disease, stage 3 unspecified; F79 Unspecified intellectual disabilities; F60.89 Other specific personality disorders; S61.519A Laceration without foreign body of unspecified wrist, initial encounter; W26.8XXA Contact with other sharp object(s), not elsewhere classified, initial encounter; Y92.9 Unspecified place or not applicable; F41.9 Anxiety disorder, unspecified; G47.33 Obstructive sleep apnea (adult) (pediatric); N40.0 Benign prostatic hyperplasia without lower urinary tract symptoms; E03.9 Hypothyroidism, unspecified; I12.9 Hypertensive chronic kidney disease with stage 1 through stage 4 chronic kidney disease, or unspecified chronic kidney disease; M47.892 Other spondylosis, cervical region; Z90.49 Acquired absence of other specified parts of digestive tract; Z79.890 Hormone replacement therapy; Z79.899 Other long term (current) drug therapy; Z88.8 Allergy status to other drugs, medicaments and biological substances; Z91.018 Allergy to other foods; Z87.820 Personal history of traumatic brain injury; Z91.52 Personal history of nonsuicidal self-harm; Z95.0 Presence of cardiac pacemaker

== ENCOUNTER → 2024-06-06 | Outpatient (CLI) | payer OTHER ==
[~2024-06-06] MED LIST changes: +LOPE2CA PO; +OLAN5ZYD PO; +ONDA-83 PO; +PROZ20CA11 PO
== END ==
LOC: M PLAIMG 13:02
PROVIDERS: ATTEND Family Medicine
DX: M17.0 Bilateral primary osteoarthritis of knee (principal)

== ENCOUNTER 2024-06-23 09:53 | Emergency (ER) | payer OTHER ==
[~2024-06-23] VITALS: Ht 172.7 cm; Wt 95.4 kg
[2024-06-23] MEDS: ACETAMINOPHEN 500 MG TAB PO ONE (13:00)
[2024-06-23] MEDS: IBUPROFEN 600MG TAB PO ONE (13:00)
[2024-06-23 13:13] VITALS: BP 138/79; TEMP 97.6; O2SAT 99
== END 2024-06-23 13:24 | disposition home or self-care (01) ==
LOC: M ED 09:53
DX: M17.11 Unilateral primary osteoarthritis, right knee (principal); M25.561 Pain in right knee; Z88.8 Allergy status to other drugs, medicaments and biological substances; Z91.010 Allergy to peanuts; Z79.1 Long term (current) use of non-steroidal anti-inflammatories (NSAID); Z79.84 Long term (current) use of oral hypoglycemic drugs; Z79.899 Other long term (current) drug therapy

== ENCOUNTER 2024-09-25 10:50 | Emergency (ER) | payer OTHER ==
[~2024-09-25] VITALS: Ht 172.7 cm; Wt 88.9 kg
[~2024-09-25 10:50] MED LIST changes: +AMMO12CR4 TOP; -AMMO12CR7 TOP; -FLOM0.4C39 PO; -LITH450T11 PO; +LITH450T17 PO; +OXYB-54 PO; +PROZ10CA11 PO; -PROZ10CA7 PO; -PROZ20CA11; -PROZ20CA11 PO; +PROZ20CA12; +PROZ20CA12 PO; +TAMS-18 PO; +TOPI-256 PO; -TOPI25TA10 PO
[2024-09-25 10:52] VITALS: BP 124/75; O2SAT 98
[2024-09-25 13:21] LABS: BASO # 0.1 10^3/uL (0.0-0.2); BASO % 0.7 % (0.0-1.0); EOS # 0.2 10^3/uL (0.0-0.5); EOS % 3.2 % (0.0-3.0); LYMPH # 2.2 10^3/uL (1.5-5.0); LYMPH % 30.6 % (24.0-44.0); MONO # 0.5 10^3/uL (0.0-0.8); MONO % 7.0 % (2.0-8.0); NEUTROPHILS # 4.3 10^3/uL (1.5-8.5); NEUTROPHILS % 58.2 % (36.0-66.0); PLATELET COUNT, AUTOMATED 193 10^3/uL (150-450)
[2024-09-25 13:45] LABS: ALT/SGPT 24.0 U/L (7.0-40); AST/SGOT 19.0 U/L (<34)
[2024-09-25] MEDS ORDERED: ISOVUE-370 76% 100 ML VIAL As Ordered ONE (15:09)
[2024-09-25 15:40] LABS: KETONE, URINE AUTO RFX NEGATIVE (NEGATIVE); LEUKOCYTE ESTERASE UR AUTO RFX NEGATIVE (NEGATIVE); MUCUS, URINE RFX SMALL (NEGATIVE); NITRITE, URINE AUTO RFX NEGATIVE (NEGATIVE); RBC, URINE AUTO RFX 2 /HPF (0-3); SQUAM EPITHELIAL CELL UR AURFX 0 /HPF (0-6); WBC, URINE AUTO RFX 1 /HPF (0-3)
[2024-09-25 16:03] VITALS: TEMP 97.9
[2024-09-25] MEDS ORDERED: OXYB5TAB14 PO (17:25)
[2024-09-25] MEDS ORDERED: DICY-61 PO (17:25)
== END 2024-09-25 17:46 | disposition home or self-care (01) ==
LOC: M ED 10:50
DX: R10.9 Unspecified abdominal pain (principal); N40.0 Benign prostatic hyperplasia without lower urinary tract symptoms; Z87.820 Personal history of traumatic brain injury; Z88.8 Allergy status to other drugs, medicaments and biological substances; Z91.018 Allergy to other foods; Z79.1 Long term (current) use of non-steroidal anti-inflammatories (NSAID); Z79.84 Long term (current) use of oral hypoglycemic drugs; Z79.899 Other long term (current) drug therapy
CPT/HCPCS: 36415; 74177; 80047; 80076; 81001; 83690; 85025; 99284; Q9967

== ENCOUNTER 2024-10-13 17:26 | Inpatient (IN) | payer OTHER ==
[~2024-10-13] VITALS: Ht 172.7 cm; Wt 86.0 kg
[~2024-10-13 17:26] MED LIST changes: -LOPE1CAP5 PO; -MED REC COMMENT; -OXYB10TA23 PO
[2024-10-13 18:00] LABS: PLATELET COUNT, AUTOMATED 214 10^3/uL (150-450)
[2024-10-13 18:22] LABS: SALICYLATE LEVEL < 3.0 MG/DL (<30)
[2024-10-13 18:56] LABS: PHENCYCLIDINE URINE NEGATIVE (NEGATIVE)
[2024-10-13 18:57] LABS: AMPHETAMINES LEVEL URINE NEGATIVE (NEGATIVE); BARBITURATES URINE NEGATIVE (NEGATIVE); BENZODIAZEPINES URINE NEGATIVE (NEGATIVE); CANNABINOIDS URINE NEGATIVE (NEGATIVE); COCAINE METABOLITE URINE NEGATIVE (NEGATIVE); METHADONE URINE NEGATIVE (NEGATIVE); OPIATES URINE NEGATIVE (NEGATIVE)
[2024-10-13 18:58] LABS: ETHYL ALCOHOL (ETHANOL) < 0.003 % (0.000-0.010)
[2024-10-13 18:59] LABS: ALT/SGPT 27 U/L (7.0-40); AST/SGOT 20 U/L (<34); CALCIUM LEVEL 10.2 MG/DL (8.5-10.1); CARBON DIOXIDE LEVEL 20 MMOL/L (20-31); CHLORIDE LEVEL 112 MMOL/L (98-107); CREATININE FOR GFR 1.27 MG/DL (0.70-1.30); GLOMERULAR FILTRATION RATE 67.1 (>56); POTASSIUM SERUM 3.9 MMOL/L (3.5-5.1); SODIUM LEVEL 146 MMOL/L (136-145)
[2024-10-13] MEDS ORDERED: OXYB10TA23 PO (19:35)
[2024-10-13] MEDS ORDERED: LOPE1CAP5 PO (19:40)
[2024-10-13] MEDS ORDERED: HOME MED LIST COMPLETE! XX SCH (19:45)
[2024-10-13] MEDS ORDERED: MED REC COMMENT (19:45)
[2024-10-13] MEDS ORDERED: MAALOX 30 ML SUSP *UDC PO PRN (21:05)
[2024-10-13] MEDS ORDERED: OLANZapine ORAL DISINTEGRATING TAB 5MG PO PRN (21:05)
[2024-10-13] MEDS ORDERED: ACETAMINOPHEN 325 MG TAB PO PRN (21:05)
[2024-10-13] MEDS ORDERED: MOM 30 ML SUSPENSION UDC PO PRN (21:05)
[2024-10-13] MEDS: traZODone 100 MG TAB PO ONE (21:08)
[2024-10-13] MEDS: QUEtiapine FUMARATE 50MG TAB PO ONE (21:08)
[2024-10-13] MEDS: TOPIRAMATE 25 MG TAB PO ONE (21:09)
[2024-10-13 23:13] VITALS: BP 119/77; TEMP 97.1; O2SAT 95
[2024-10-13] MEDS: traZODone 50 MG TAB PO PRN (23:25)
[2024-10-14] MEDS ORDERED: DICYCLOMINE 10 MG CAP PO PRN (09:25)
[2024-10-14] MEDS ORDERED: ONDANSETRON 4MG TAB PO PRN (09:25)
[2024-10-14] MEDS ORDERED: LOPERAMIDE 2 MG CAPLET PO PRN (09:25)
[2024-10-14] MEDS: FLUoxetine 20 MG CAP PO SCH (09:42)
[2024-10-14] MEDS: QUEtiapine FUMARATE 50MG TAB PO SCH (09:47)
[2024-10-14 11:30] VITALS: BP 125/88; TEMP 96.9; O2SAT 100
[2024-10-14] MEDS: IBUPROFEN 400 MG TAB PO PRN (11:39)
[2024-10-14 17:26] VITALS: BP 125/84; TEMP 97; O2SAT 100
[2024-10-14] MEDS: AMANTADINE 100 MG PO SCH (18:33)
[2024-10-14] MEDS: TOPIRAMATE 25 MG TAB PO SCH (21:58)
[2024-10-14] MEDS: TAMSULOSIN 0.4 MG CAP PO SCH (21:58)
[2024-10-14] MEDS: LOSARTAN 50 MG TABLET PO SCH (21:59)
[2024-10-14] MEDS: traZODone 50 MG TAB PO SCH (21:59)
[2024-10-15] MEDS: LEVOTHYROXINE 88 MCG TABLET (0.088 MG) PO SCH (05:40)
[2024-10-15 06:17] VITALS: BP 127/89; TEMP 97.6; O2SAT 95
[2024-10-15] MEDS: DOCUSATE SODIUM 100 MG CAPSULE PO SCH (08:55)
[2024-10-15] MEDS: FINASTERIDE 5 MG TAB PO SCH (08:55)
[2024-10-15] MEDS: AMANTADINE 100 MG PO SCH (08:55)
[2024-10-15] MEDS: oxyBUTYnin *XL* 5 MG TAB PO SCH (08:55)
[2024-10-15] MEDS ORDERED: MIRALAX *UNIT DOSE* 17 GM PACKET PO PRN (09:35)
[2024-10-15 15:23] VITALS: BP 123/81; TEMP 97.6; O2SAT 100
[2024-10-16 06:50] VITALS: BP 123/76; TEMP 97.2; O2SAT 96
[2024-10-16 09:29] VITALS: BP 118/83
[2024-10-16] MEDS ORDERED: FLUO-365 PO (10:08)
== END 2024-10-16 13:38 | disposition home or self-care (01) | DRG 750 ==
LOC: M ED 17:26 → M ED INP 20:14 → M PSY 22:39
PROVIDERS: ADMIT Student in an Organized Health Care Education/Training Program; ATTEND General Practice
DX: F25.9 Schizoaffective disorder, unspecified (principal); D69.6 Thrombocytopenia, unspecified; I49.5 Sick sinus syndrome; F71 Moderate intellectual disabilities; N18.30 Chronic kidney disease, stage 3 unspecified; E66.9 Obesity, unspecified; G47.33 Obstructive sleep apnea (adult) (pediatric); N40.1 Benign prostatic hyperplasia with lower urinary tract symptoms; N13.9 Obstructive and reflux uropathy, unspecified; E03.9 Hypothyroidism, unspecified; I12.9 Hypertensive chronic kidney disease with stage 1 through stage 4 chronic kidney disease, or unspecified chronic kidney disease; N52.9 Male erectile dysfunction, unspecified; M47.812 Spondylosis without myelopathy or radiculopathy, cervical region; Z95.0 Presence of cardiac pacemaker; Z87.820 Personal history of traumatic brain injury; Z79.84 Long term (current) use of oral hypoglycemic drugs; Z79.890 Hormone replacement therapy; Z79.899 Other long term (current) drug therapy; Z88.8 Allergy status to other drugs, medicaments and biological substances; Z91.018 Allergy to other foods

== ENCOUNTER → 2024-10-13 | Outpatient (CLI) | payer OTHER ==
[~2024-10-13] MED LIST changes: +DICY-61 PO; +LOPE1CAP5 PO; +MED REC COMMENT; +OXYB10TA23 PO; +OXYB5TAB14 PO
[2024-10-13 17:24] LABS: BASO # 0.0 10^3/uL (0.0-0.2); BASO % 0.5 % (0.0-1.0); EOS # 0.2 10^3/uL (0.0-0.5); EOS % 3.1 % (0.0-3.0); LYMPH # 2.6 10^3/uL (1.5-5.0); LYMPH % 33.4 % (24.0-44.0); MONO # 0.5 10^3/uL (0.0-0.8); MONO % 6.8 % (2.0-8.0); NEUTROPHILS # 4.4 10^3/uL (1.5-8.5); NEUTROPHILS % 55.9 % (36.0-66.0); PLATELET COUNT, AUTOMATED 163 10^3/uL (150-450)
[2024-10-13 17:40] LABS: ESTIMATED AVERAGE GLUCOSE 97.0 MG/DL (60-110); PSA SCREENING 0.15 NG/ML (< 4.00)
[2024-10-13 17:43] LABS: FREE T4 1.32 NG/DL (0.89-1.76)
[2024-10-13 17:45] LABS: ALT/SGPT 25.0 U/L (7.0-40); AST/SGOT 19.0 U/L (<34); CALCIUM LEVEL 9.7 MG/DL (8.5-10.1); CARBON DIOXIDE LEVEL 22.0 MMOL/L (20-31); CHLORIDE LEVEL 110.0 MMOL/L (98-107); CHOLESTEROL LEVEL 153.0 MG/DL (<200); CHOLESTEROL RISK RATIO 3.05 (<5); CREATININE FOR GFR 1.22 MG/DL (0.70-1.30); GLOMERULAR FILTRATION RATE 70.5 (>56); LDL CHOLESTEROL 74.5 MG/DL (<100); MAGNESIUM LEVEL 2.0 MG/DL (1.8-2.4); NON-HDL-C 102.9 MG/DL; POTASSIUM SERUM 4.0 MMOL/L (3.5-5.1); SODIUM LEVEL 145.0 MMOL/L (136-145); TOTAL 25(OH) VITAMIN D 77.0 NG/ML (20.0-100.0); TRIGLYCERIDES LEVEL 142.0 MG/DL (<150)
[2024-10-13 18:12] LABS: PTH INTACT 33.7 PG/ML (18.5-88.0)
== END ==
LOC: M PLALAB 15:43
PROVIDERS: ATTEND Family Medicine
DX: E55.9 Vitamin D deficiency, unspecified (principal); I50.32 Chronic diastolic (congestive) heart failure; Z12.5 Encounter for screening for malignant neoplasm of prostate; E78.2 Mixed hyperlipidemia; E03.9 Hypothyroidism, unspecified; C84.A0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, unspecified, unspecified site

== ENCOUNTER 2024-10-20 20:27 | Inpatient (IN) | payer OTHER ==
[~2024-10-20] VITALS: Ht 172.7 cm; Wt 85.9 kg
[~2024-10-20 20:27] MED LIST changes: +LOPE1CAP5 PO; +MED REC COMMENT; +OXYB10TA23 PO
[2024-10-20] MEDS ORDERED: DICY1CAP8 PO (21:05)
[2024-10-20] MEDS ORDERED: FLUO1TAB3 PO (21:06)
[2024-10-20] MEDS ORDERED: OLAN1TAB16 PO (21:09)
[2024-10-20 21:13] LABS: PLATELET COUNT, AUTOMATED 204 10^3/uL (150-450)
[2024-10-20] MEDS ORDERED: HOME MED LIST COMPLETE! XX SCH (21:15)
[2024-10-20] MEDS: BISACODYL 5 MG TAB PO ONE (21:27)
[2024-10-20 21:33] LABS: AMPHETAMINES LEVEL URINE NEGATIVE (NEGATIVE); ETHYL ALCOHOL (ETHANOL) < 0.003 % (0.000-0.010)
[2024-10-20 21:34] LABS: ALT/SGPT 26 U/L (7.0-40); AST/SGOT 26 U/L (<34); BARBITURATES URINE NEGATIVE (NEGATIVE); BENZODIAZEPINES URINE NEGATIVE (NEGATIVE); CALCIUM LEVEL 10.0 MG/DL (8.5-10.1); CANNABINOIDS URINE NEGATIVE (NEGATIVE); CARBON DIOXIDE LEVEL 21 MMOL/L (20-31); CHLORIDE LEVEL 110 MMOL/L (98-107); COCAINE METABOLITE URINE NEGATIVE (NEGATIVE); CREATININE FOR GFR 1.25 MG/DL (0.70-1.30); GLOMERULAR FILTRATION RATE 68.4 (>56); METHADONE URINE NEGATIVE (NEGATIVE); OPIATES URINE NEGATIVE (NEGATIVE); PHENCYCLIDINE URINE NEGATIVE (NEGATIVE); POTASSIUM SERUM 4.3 MMOL/L (3.5-5.1); SALICYLATE LEVEL < 3.0 MG/DL (<30); SODIUM LEVEL 143 MMOL/L (136-145)
[2024-10-21] MEDS ORDERED: MAALOX 30 ML SUSP *UDC PO PRN ×2 (00:50→13:25)
[2024-10-21] MEDS ORDERED: traZODone 50 MG TAB PO PRN (00:50)
[2024-10-21] MEDS ORDERED: UNRESOLVED CLARIFICATION ENTRY XX STA (01:16)
[2024-10-21] MEDS: QUEtiapine FUMARATE 50MG TAB PO SCH (01:49)
[2024-10-21] MEDS: TAMSULOSIN 0.4 MG CAP PO SCH (01:49)
[2024-10-21] MEDS: OLANZapine 5 MG TAB PO SCH (01:49)
[2024-10-21] MEDS: traZODone 100 MG TAB PO PRN (02:10)
[2024-10-21 02:30] VITALS: BP 148/80; TEMP 97.8; O2SAT 100
[2024-10-21] MEDS: LEVOTHYROXINE 88 MCG TABLET (0.088 MG) PO SCH (05:33)
[2024-10-21] MEDS: LOSARTAN 50 MG TABLET PO SCH (08:48)
[2024-10-21] MEDS: AMANTADINE 100 MG PO SCH (08:48)
[2024-10-21] MEDS: FLUoxetine 20 MG CAP PO SCH (08:48)
[2024-10-21] MEDS: FINASTERIDE 5 MG TAB PO SCH (08:48)
[2024-10-21] MEDS: DOCUSATE SODIUM 100 MG CAPSULE PO SCH (08:48)
[2024-10-21] MEDS: TOPIRAMATE 25 MG TAB PO SCH (08:48)
[2024-10-21] MEDS: ACETAMINOPHEN 325 MG TAB PO PRN (11:41)
[2024-10-21 15:19] VITALS: BP 120/74; TEMP 97.7; O2SAT 95
[2024-10-21] MEDS: MOM 30 ML SUSPENSION UDC PO PRN (22:03)
[2024-10-22 06:29] VITALS: BP 111/74; TEMP 97.6; O2SAT 98
[2024-10-22] MEDS: MIRALAX *UNIT DOSE* 17 GM PACKET PO SCH (09:31)
[2024-10-22 14:38] VITALS: BP 121/79; TEMP 97.3; O2SAT 99
[2024-10-22] MEDS: IBUPROFEN 400 MG TAB PO PRN (22:37)
[2024-10-23 06:26] VITALS: BP 111/77; TEMP 97.3; O2SAT 98
[2024-10-23 09:00] VITALS: BP 135/92
[2024-10-23] MEDS ORDERED: HYDR50TA70 PO (09:16)
== END 2024-10-23 13:13 | disposition home or self-care (01) | DRG 750 ==
LOC: M ED 20:27 → M ED INP 10-21 00:49 → M PSY 10-21 01:58
PROVIDERS: ADMIT Psychiatry & Neurology Neurology; ATTEND Psychiatry & Neurology Psychiatry
DX: F25.0 Schizoaffective disorder, bipolar type (principal); D69.6 Thrombocytopenia, unspecified; I49.5 Sick sinus syndrome; F71 Moderate intellectual disabilities; N18.30 Chronic kidney disease, stage 3 unspecified; G47.33 Obstructive sleep apnea (adult) (pediatric); N40.1 Benign prostatic hyperplasia with lower urinary tract symptoms; N13.9 Obstructive and reflux uropathy, unspecified; E03.9 Hypothyroidism, unspecified; I12.9 Hypertensive chronic kidney disease with stage 1 through stage 4 chronic kidney disease, or unspecified chronic kidney disease; N52.9 Male erectile dysfunction, unspecified; G89.29 Other chronic pain; M54.50 Low back pain, unspecified; K59.00 Constipation, unspecified; M47.812 Spondylosis without myelopathy or radiculopathy, cervical region; Z95.0 Presence of cardiac pacemaker; Z87.820 Personal history of traumatic brain injury; Z79.84 Long term (current) use of oral hypoglycemic drugs; Z79.890 Hormone replacement therapy; Z79.899 Other long term (current) drug therapy; Z88.8 Allergy status to other drugs, medicaments and biological substances; Z91.018 Allergy to other foods

== ENCOUNTER 2024-12-22 09:25 | Observation (INO) | payer MEDICAID, OTHER ==
[~2024-12-22] VITALS: Ht 172.7 cm; Wt 83.8 kg
[~2024-12-22 09:25] MED LIST changes: +CARB15DR25 AU; -CARBOT AU; +DICY1CAP8 PO; +FLUO1TAB3 PO; -IBUP-1022 PO
[2024-12-22] MEDS ORDERED: ACETAMINOPHEN 500 MG TAB PO ONE (11:05)
[2024-12-22] MEDS: ACETAMINOPHEN *IV* 1,000 MG in IV 1 EA IV ONE (11:19)
[2024-12-22] MEDS: LIDOCAINE 5% PATCH TD ONE (11:19)
[2024-12-22 11:38] LABS: BASO # 0.0 10^3/uL (0.0-0.2); BASO % 0.4 % (0.0-1.0); EOS # 0.1 10^3/uL (0.0-0.5); EOS % 1.0 % (0.0-3.0); LYMPH # 1.2 10^3/uL (1.5-5.0); LYMPH % 16.1 % (24.0-44.0); MONO # 0.5 10^3/uL (0.0-0.8); MONO % 6.9 % (2.0-8.0); NEUTROPHILS # 5.4 10^3/uL (1.5-8.5); NEUTROPHILS % 74.9 % (36.0-66.0); PLATELET COUNT, AUTOMATED 170 10^3/uL (150-450)
[2024-12-22] MEDS ORDERED: ISOVUE-370 76% 100 ML VIAL As Ordered ONE (11:57)
[2024-12-22 12:10] LABS: ALT/SGPT 25.0 U/L (7.0-40); AST/SGOT 27.0 U/L (<34); CALCIUM LEVEL 9.6 MG/DL (8.5-10.1); CARBON DIOXIDE LEVEL 23.0 MMOL/L (20-31); CHLORIDE LEVEL 107.0 MMOL/L (98-107); CREATININE FOR GFR 1.34 MG/DL (0.70-1.30); GLOMERULAR FILTRATION RATE 63.0 (>56); POTASSIUM SERUM 4.3 MMOL/L (3.5-5.1); SODIUM LEVEL 142.0 MMOL/L (136-145)
[2024-12-22] MEDS ORDERED: ACETAMINOPHEN 500 MG TAB PO SCH (14:00)
[2024-12-22] MEDS: MORPHINE 4 MG/ML 1 ML VIAL IV PRN ×2 (14:52→23:27)
[2024-12-22] MEDS: ONDANSETRON 4MG/2ML VIAL IV ONE (14:52)
[2024-12-22] MEDS ORDERED: MORPHINE 4 MG/ML 1 ML VIAL IV PRN (15:20)
[2024-12-22] MEDS ORDERED: MIRALAX *UNIT DOSE* 17 GM PACKET PO PRN (15:25)
[2024-12-22] MEDS ORDERED: GLUCAGON INJ 1 MG VIAL SC PRN (15:35)
[2024-12-22] MEDS ORDERED: DEXTROSE 50% 50 ML SYRINGE IV PRN (15:35)
[2024-12-22] MEDS ORDERED: GLUCOSE 4 GM CHEW PO PRN (15:35)
[2024-12-22] MEDS ORDERED: NAPR-849 PO (18:05)
[2024-12-22] MEDS ORDERED: LEVO75TA4 PO (18:05)
[2024-12-22] MEDS ORDERED: HOME MED LIST COMPLETE! XX SCH (18:10)
[2024-12-22] MEDS: TOPIRAMATE 25 MG TAB PO SCH (19:35)
[2024-12-22] MEDS: INSULIN LISPRO (NovoLOG) PER UNIT SC SCH ×2 (19:37→23:30)
[2024-12-22] MEDS: D5W/0.9% SODIUM CHLORIDE 1,000 ML IV SCH (20:03)
[2024-12-22] MEDS ORDERED: OLANZapine 5 MG TAB PO SCH (21:00)
[2024-12-22] MEDS: ACETAMINOPHEN 500 MG TAB PO SCH (23:15)
[2024-12-22] MEDS: AMANTADINE 100 MG PO SCH (23:16)
[2024-12-22] MEDS: TAMSULOSIN 0.4 MG CAP PO SCH (23:16)
[2024-12-22] MEDS: QUEtiapine FUMARATE 50MG TAB PO SCH (23:16)
[2024-12-22] MEDS: traZODone 100 MG TAB PO PRN (23:17)
[2024-12-23] VITALS (7 sets, daily range): BP systolic 118–140; BP diastolic 85–95; TEMP 96.3–97.3; O2SAT 93–100
[2024-12-23] MEDS: LEVOTHYROXINE 75 MCG TABLET (0.075 MG) PO SCH (06:44)
[2024-12-23] MEDS: LIDOCAINE 5% PATCH TD SCH (08:18)
[2024-12-23] MEDS: FINASTERIDE 5 MG TAB PO SCH (08:21)
[2024-12-23] MEDS: HEPARIN SOD 5000 UNITS/ML 1 ML VIAL/SYRINGE SC SCH (08:22)
[2024-12-23 08:24] LABS: PLATELET COUNT, AUTOMATED 127 10^3/uL (150-450)
[2024-12-23] MEDS: LOSARTAN 50 MG TABLET PO SCH (08:27)
[2024-12-23] MEDS ORDERED: MIRALAX *UNIT DOSE* 17 GM PACKET PO PRN (08:50)
[2024-12-23 08:52] LABS: CALCIUM LEVEL 8.9 MG/DL (8.5-10.1); CARBON DIOXIDE LEVEL 23.0 MMOL/L (20-31); CHLORIDE LEVEL 109.0 MMOL/L (98-107); CREATININE FOR GFR 1.18 MG/DL (0.70-1.30); GLOMERULAR FILTRATION RATE 73.3 (>56); POTASSIUM SERUM 3.9 MMOL/L (3.5-5.1); SODIUM LEVEL 143.0 MMOL/L (136-145)
[2024-12-23] MEDS ORDERED: FLUoxetine 20 MG CAP PO SCH (09:00)
[2024-12-23] MEDS: SENNA 8.6 MG TAB PO PRN (09:20)
[2024-12-23 19:54] LABS: ESTIMATED AVERAGE GLUCOSE 97.0 MG/DL (60-110)
[2024-12-24] VITALS (7 sets, daily range): BP systolic 121–136; BP diastolic 93–99; TEMP 97–98.1; O2SAT 86–100
[2024-12-24 07:00] LABS: PLATELET COUNT, AUTOMATED 127 10^3/uL (150-450)
[2024-12-24 07:23] LABS: CALCIUM LEVEL 8.9 MG/DL (8.5-10.1); CARBON DIOXIDE LEVEL 24.0 MMOL/L (20-31); CHLORIDE LEVEL 107.0 MMOL/L (98-107); CREATININE FOR GFR 1.25 MG/DL (0.70-1.30); GLOMERULAR FILTRATION RATE 68.4 (>56); POTASSIUM SERUM 4.0 MMOL/L (3.5-5.1); SODIUM LEVEL 142.0 MMOL/L (136-145)
[2024-12-25 05:48] VITALS: BP 119/90; TEMP 97; O2SAT 95
[2024-12-25 09:06] VITALS: BP 118/90
[2024-12-25 10:00] VITALS: BP 122/90; TEMP 97.3; O2SAT 97
[2024-12-25] MEDS ORDERED: COLA100C5 PO (11:54)
[2024-12-25] MEDS ORDERED: OXYC1TAB23 PO (11:54)
[2024-12-25] MEDS ORDERED: LIDO1PAD TOP (11:54)
== END 2024-12-25 13:18 | disposition home or self-care (01) ==
LOC: M ED 09:25 → M ED INP 09:26 → M MS5PR 22:45
PROVIDERS: ADMIT Student in an Organized Health Care Education/Training Program; ATTEND Internal Medicine
DX: S32.010A Wedge compression fracture of first lumbar vertebra, initial encounter for closed fracture (principal); S32.020A Wedge compression fracture of second lumbar vertebra, initial encounter for closed fracture; W07.XXXA Fall from chair, initial encounter; Y92.198 Other place in other specified residential institution as the place of occurrence of the external cause; Y93.9 Activity, unspecified; Y99.9 Unspecified external cause status; K59.00 Constipation, unspecified; F81.9 Developmental disorder of scholastic skills, unspecified; R62.50 Unspecified lack of expected normal physiological development in childhood; Z87.820 Personal history of traumatic brain injury; I10 Essential (primary) hypertension; I49.5 Sick sinus syndrome; Z95.0 Presence of cardiac pacemaker; E11.9 Type 2 diabetes mellitus without complications; G47.39 Other sleep apnea; E03.9 Hypothyroidism, unspecified; B18.2 Chronic viral hepatitis C; F20.9 Schizophrenia, unspecified; F41.9 Anxiety disorder, unspecified; F31.9 Bipolar disorder, unspecified; M54.50 Low back pain, unspecified; G89.29 Other chronic pain; N40.0 Benign prostatic hyperplasia without lower urinary tract symptoms; R26.9 Unspecified abnormalities of gait and mobility; N28.89 Other specified disorders of kidney and ureter; G20.C Parkinsonism, unspecified; Z87.81 Personal history of (healed) traumatic fracture; Z90.89 Acquired absence of other organs; Z88.8 Allergy status to other drugs, medicaments and biological substances; Z91.018 Allergy to other foods; Z79.899 Other long term (current) drug therapy; Z79.84 Long term (current) use of oral hypoglycemic drugs; Z79.890 Hormone replacement therapy
CPT/HCPCS: 36415; 70450; 72080; 72125; 72128; 72131; 74177; 80047; 80048; 80076; 83036; 85025; 85027; 96361; 96365; 96366; 96367; 96372; 96375; 96376; 97116; 97161; 97165; 97530; 97535; 99284; J0131; J2405; Q9967; S0138

== ENCOUNTER 2025-01-06 00:19 | Emergency (ER) | payer OTHER ==
[~2025-01-06 00:19] MED LIST changes: +LEVO75TA4 PO; +LIDO1PAD TOP; +NAPR-849 PO; +OXYC1TAB23 PO
[2025-01-06 00:27] VITALS: BP 144/92; TEMP 97.3; O2SAT 100
[2025-01-06] MEDS: NAPROXEN 250 MG TAB PO ONE (01:32)
== END 2025-01-06 02:23 | disposition home or self-care (01) ==
LOC: M ED 00:19 → EDBD 00:19 → M ED 02:23
DX: S70.02XA Contusion of left hip, initial encounter (principal); Y92.019 Unspecified place in single-family (private) house as the place of occurrence of the external cause; Y93.9 Activity, unspecified; Y99.9 Unspecified external cause status; W18.2XXA Fall in (into) shower or empty bathtub, initial encounter; I10 Essential (primary) hypertension; Z88.8 Allergy status to other drugs, medicaments and biological substances; Z91.010 Allergy to peanuts; Z79.899 Other long term (current) drug therapy

== ENCOUNTER → 2025-01-13 | Outpatient (CLI) | payer OTHER ==
[2025-01-13 15:12] LABS: BASO # 0.0 10^3/uL (0.0-0.2); BASO % 0.3 % (0.0-1.0); EOS # 0.4 10^3/uL (0.0-0.5); EOS % 4.8 % (0.0-3.0); LYMPH # 2.0 10^3/uL (1.5-5.0); LYMPH % 23.3 % (24.0-44.0); MONO # 0.6 10^3/uL (0.0-0.8); MONO % 6.5 % (2.0-8.0); NEUTROPHILS # 5.7 10^3/uL (1.5-8.5); NEUTROPHILS % 64.9 % (36.0-66.0); PLATELET COUNT, AUTOMATED 209 10^3/uL (150-450)
[2025-01-13 15:21] LABS: ESTIMATED AVERAGE GLUCOSE 97.0 MG/DL (60-110)
[2025-01-13 15:41] LABS: ALT/SGPT 31.0 U/L (7.0-40); AST/SGOT 25.0 U/L (<34); CALCIUM LEVEL 9.5 MG/DL (8.5-10.1); CARBON DIOXIDE LEVEL 24.0 MMOL/L (20-31); CHLORIDE LEVEL 106.0 MMOL/L (98-107); CHOLESTEROL LEVEL 134.0 MG/DL (<200); CHOLESTEROL RISK RATIO 2.58 (<5); CREATININE FOR GFR 1.33 MG/DL (0.70-1.30); GLOMERULAR FILTRATION RATE 63.5 (>56); LDL CHOLESTEROL 54.6 MG/DL (<100); MAGNESIUM LEVEL 1.9 MG/DL (1.8-2.4); NON-HDL-C 82.2 MG/DL; POTASSIUM SERUM 4.6 MMOL/L (3.5-5.1); PSA SCREENING 0.26 NG/ML (< 4.00); PTH INTACT 31.5 PG/ML (18.5-88.0); SODIUM LEVEL 140.0 MMOL/L (136-145); TRIGLYCERIDES LEVEL 138.0 MG/DL (<150)
[2025-01-13 15:44] LABS: FREE T4 1.27 NG/DL (0.89-1.76)
[2025-01-13 15:46] LABS: TOTAL 25(OH) VITAMIN D 65.9 NG/ML (20.0-100.0)
== END ==
LOC: M PLALAB 12:52
PROVIDERS: ATTEND Family Medicine
DX: S32.020D Wedge compression fracture of second lumbar vertebra, subsequent encounter for fracture with routine healing (principal); C84.A0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, unspecified, unspecified site; I50.32 Chronic diastolic (congestive) heart failure; E03.9 Hypothyroidism, unspecified; E78.2 Mixed hyperlipidemia; Z12.5 Encounter for screening for malignant neoplasm of prostate; E55.9 Vitamin D deficiency, unspecified; K76.0 Fatty (change of) liver, not elsewhere classified

== ENCOUNTER 2025-01-17 15:08 | Inpatient (IN) | payer OTHER ==
[~2025-01-17] VITALS: Ht 172.7 cm; Wt 82.6 kg
[2025-01-17 15:51] LABS: PLATELET COUNT, AUTOMATED 221 10^3/uL (150-450)
[2025-01-17 16:22] LABS: ETHYL ALCOHOL (ETHANOL) < 0.003 % (0.000-0.010)
[2025-01-17 16:24] LABS: ALT/SGPT 32 U/L (7.0-40); AST/SGOT 28 U/L (<34); CALCIUM LEVEL 9.7 MG/DL (8.5-10.1); CARBON DIOXIDE LEVEL 20 MMOL/L (20-31); CHLORIDE LEVEL 110 MMOL/L (98-107); CREATININE FOR GFR 1.43 MG/DL (0.70-1.30); GLOMERULAR FILTRATION RATE 58.2 (>56); POTASSIUM SERUM 4.1 MMOL/L (3.5-5.1); SALICYLATE LEVEL < 3.0 MG/DL (<30); SODIUM LEVEL 143 MMOL/L (136-145)
[2025-01-17] MEDS ORDERED: DOCU100C16 PO (17:53)
[2025-01-17] MEDS ORDERED: LIDO1PAD TOP (17:53)
[2025-01-17] MEDS ORDERED: ONDA-83 PO (17:53)
[2025-01-17] MEDS ORDERED: HYDR50TA70 PO (17:53)
[2025-01-17] MEDS ORDERED: HOME MED LIST COMPLETE! XX SCH (17:55)
[2025-01-17] MEDS ORDERED: MAALOX 30 ML SUSP *UDC PO PRN (18:10)
[2025-01-17] MEDS ORDERED: traZODone 50 MG TAB PO PRN (18:10)
[2025-01-17] MEDS ORDERED: MOM 30 ML SUSPENSION UDC PO PRN (18:10)
[2025-01-17] MEDS ORDERED: DICYCLOMINE 10 MG CAP PO PRN (18:15)
[2025-01-17] MEDS ORDERED: MIRALAX *UNIT DOSE* 17 GM PACKET PO PRN (18:15)
[2025-01-17 18:29] LABS: AMPHETAMINES LEVEL URINE NEGATIVE (NEGATIVE); BARBITURATES URINE NEGATIVE (NEGATIVE); BENZODIAZEPINES URINE NEGATIVE (NEGATIVE); COCAINE METABOLITE URINE NEGATIVE (NEGATIVE); METHADONE URINE NEGATIVE (NEGATIVE); OPIATES URINE NEGATIVE (NEGATIVE)
[2025-01-17 18:30] LABS: CANNABINOIDS URINE NEGATIVE (NEGATIVE); PHENCYCLIDINE URINE NEGATIVE (NEGATIVE)
[2025-01-17] MEDS: NAPROXEN 250 MG TAB PO PRN (21:45)
[2025-01-17] MEDS: DOCUSATE SODIUM 100 MG CAPSULE PO SCH (21:45)
[2025-01-17] MEDS: TAMSULOSIN 0.4 MG CAP PO SCH (21:46)
[2025-01-17] MEDS: TOPIRAMATE 25 MG TAB PO SCH (21:46)
[2025-01-17] MEDS: LOSARTAN 50 MG TABLET PO SCH (21:47)
[2025-01-17] MEDS: traZODone 100 MG TAB PO SCH (21:47)
[2025-01-17] MEDS: AMANTADINE 100 MG PO SCH (21:47)
[2025-01-17] MEDS: ACETAMINOPHEN 325 MG TAB PO PRN (23:24)
[2025-01-18] MEDS: LEVOTHYROXINE 75 MCG TABLET (0.075 MG) PO SCH (06:54)
[2025-01-18] MEDS: IBUPROFEN 400 MG TAB PO PRN (06:57)
[2025-01-18] MEDS: FLUoxetine 20 MG CAP PO SCH (08:17)
[2025-01-18] MEDS: FINASTERIDE 5 MG TAB PO SCH (08:17)
[2025-01-18] MEDS ORDERED: LIDOCAINE 5% PATCH TOP PRN (10:35)
[2025-01-18] MEDS ORDERED: DEXTROSE 50% 50 ML SYRINGE IV PRN (10:40)
[2025-01-18] MEDS ORDERED: GLUCOSE 4 GM CHEW PO PRN (10:40)
[2025-01-18] MEDS ORDERED: GLUCAGON INJ 1 MG VIAL SC PRN (10:40)
[2025-01-18] MEDS: INSULIN LISPRO (NovoLOG) PER UNIT SC SCH (12:00)
[2025-01-18 15:47] VITALS: BP 124/88; TEMP 97.6; O2SAT 92
[2025-01-19 06:35] VITALS: BP 126/71; TEMP 98.5; O2SAT 98
[2025-01-19 09:17] VITALS: BP 117/86
[2025-01-19] MEDS: CARBAMIDE PEROXIDE 6.5% OTIC SOLN 15 ML AU SCH (09:21)
[2025-01-19] MEDS: FLUTICASONE PROPIONATE 0.05% NASAL SPRAY 16 GM NARES SCH (09:22)
[2025-01-19] MEDS: FLUoxetine 20 MG CAP PO SCH (09:23)
[2025-01-19 16:14] VITALS: BP 112/88; TEMP 97.8; O2SAT 94
[2025-01-20 06:34] VITALS: BP 119/69; TEMP 97.2; O2SAT 98
[2025-01-20] MEDS: LIDOCAINE 5% PATCH TOP SCH (08:36)
[2025-01-20 16:41] VITALS: BP 139/72; TEMP 97.1; O2SAT 99
[2025-01-20 21:46] VITALS: BP 137/90; TEMP 97.3; O2SAT 96
[2025-01-21 06:28] VITALS: BP 121/67; TEMP 97.7; O2SAT 98
[2025-01-21 15:18] VITALS: BP 136/84; TEMP 97.5; O2SAT 95
[2025-01-22 06:25] VITALS: BP 115/73; TEMP 97.6; O2SAT 98
[2025-01-22] MEDS ORDERED: FLUO40CA PO (08:41)
[2025-01-22 08:49] VITALS: BP 135/77
== END 2025-01-22 10:36 | disposition home or self-care (01) | DRG 750 ==
LOC: M ED 15:08 → M ED INP 18:13 → M PSY 22:45
PROVIDERS: ADMIT General Practice; ATTEND General Practice
DX: F25.0 Schizoaffective disorder, bipolar type (principal); I49.5 Sick sinus syndrome; R45.851 Suicidal ideations; F71 Moderate intellectual disabilities; E11.9 Type 2 diabetes mellitus without complications; F41.9 Anxiety disorder, unspecified; G89.29 Other chronic pain; S32.010D Wedge compression fracture of first lumbar vertebra, subsequent encounter for fracture with routine healing; S32.020D Wedge compression fracture of second lumbar vertebra, subsequent encounter for fracture with routine healing; I10 Essential (primary) hypertension; G47.33 Obstructive sleep apnea (adult) (pediatric); E03.9 Hypothyroidism, unspecified; M54.50 Low back pain, unspecified; R26.9 Unspecified abnormalities of gait and mobility; N40.0 Benign prostatic hyperplasia without lower urinary tract symptoms; Z91.52 Personal history of nonsuicidal self-harm; Z79.890 Hormone replacement therapy; Z79.899 Other long term (current) drug therapy; Z95.0 Presence of cardiac pacemaker; Z88.8 Allergy status to other drugs, medicaments and biological substances; Z91.018 Allergy to other foods; Z87.820 Personal history of traumatic brain injury

== ENCOUNTER 2025-01-25 00:36 | Emergency (ER) | payer OTHER ==
[~2025-01-25] VITALS: Ht 172.7 cm; Wt 85.0 kg
[~2025-01-25 00:36] MED LIST changes: -PROZ20CA12; -PROZ20CA12 PO; +PROZ20CA25; +PROZ20CA25 PO
[2025-01-25 00:46] VITALS: TEMP 96.9
[2025-01-25 04:47] VITALS: BP 151/94
[2025-01-25 05:17] VITALS: O2SAT 98
== END 2025-01-25 05:25 | disposition home or self-care (01) ==
LOC: M ED 00:36
DX: S01.01XA Laceration without foreign body of scalp, initial encounter (principal); Y92.019 Unspecified place in single-family (private) house as the place of occurrence of the external cause; Y93.9 Activity, unspecified; Y99.9 Unspecified external cause status; W01.0XXA Fall on same level from slipping, tripping and stumbling without subsequent striking against object, initial encounter; I10 Essential (primary) hypertension; E55.9 Vitamin D deficiency, unspecified; N40.0 Benign prostatic hyperplasia without lower urinary tract symptoms; F41.9 Anxiety disorder, unspecified; F31.9 Bipolar disorder, unspecified; Z87.820 Personal history of traumatic brain injury; Z88.8 Allergy status to other drugs, medicaments and biological substances; Z91.010 Allergy to peanuts; Z91.09 Other allergy status, other than to drugs and biological substances; Z79.899 Other long term (current) drug therapy

== ENCOUNTER 2025-02-02 10:05 | Emergency (ER) | payer OTHER ==
[~2025-02-02] VITALS: Ht 172.7 cm; Wt 83.2 kg
[2025-02-02 11:12] VITALS: BP 138/88; TEMP 98.4; O2SAT 98
== END 2025-02-02 11:20 | disposition home or self-care (01) ==
LOC: M ED 10:05
DX: Z48.02 Encounter for removal of sutures (principal); Z88.8 Allergy status to other drugs, medicaments and biological substances; Z91.018 Allergy to other foods; Z79.899 Other long term (current) drug therapy

== ENCOUNTER → 2025-02-06 | Outpatient (CLI) | payer OTHER ==
[~2025-02-06] MED LIST changes: -AMAN100T PO; +ANTI2TAB16 PO; +FINA-37 PO; -FINA5TAB2 PO; +MUCI600T31 PO; +NAPR-837 PO; -OLAN2.5T53 PO; +QUET200T2 PO; +TAMS1CAP17 PO; +[UNRECOGNIZED DRUG - CODE] PO
== END ==
LOC: M RAD 11:38
PROVIDERS: ATTEND Physician Assistant
DX: S32.010A Wedge compression fracture of first lumbar vertebra, initial encounter for closed fracture (principal); S32.020A Wedge compression fracture of second lumbar vertebra, initial encounter for closed fracture; Y92.89 Other specified places as the place of occurrence of the external cause; Y93.89 Activity, other specified; Y99.8 Other external cause status

== ENCOUNTER → 2025-02-13 | Outpatient (CLI) | payer OTHER ==
[~2025-02-13] MED LIST changes: +AMAN100T PO; -ANTI2TAB16 PO; -FINA-37 PO; +FINA5TAB2 PO; -MUCI600T31 PO; -NAPR-837 PO; +OLAN2.5T53 PO; -QUET200T2 PO; -TAMS1CAP17 PO; -[UNRECOGNIZED DRUG - CODE] PO
== END ==
LOC: M WHC 10:06
PROVIDERS: ATTEND Family Medicine
DX: S32.020D Wedge compression fracture of second lumbar vertebra, subsequent encounter for fracture with routine healing (principal); Z53.9 Procedure and treatment not carried out, unspecified reason